=== PATIENT | male | born 1970 | race Caucasian/White ===

== ENCOUNTER → 2017-09-07 07:21 | Outpatient (CLI) | payer MEDICAID, SELFPAY ==
[2017-09-07 10:22] LABS: Hemoglobin A1c 7.4 % (4.2-6.3)
[2017-09-07 10:37] LABS: AST(SGOT) 54 U/L (15-37); Alanine Aminotransfer ALT/SGPT 76 U/L (16-61); Albumin, Serum 3.7 g/dL (3.2-5.0); Alkaline Phosphatase 88 U/L (45-117); Anion Gap 11 (5-15); BUN 18 mg/dL (7-18); BUN/Creat Ratio 24.5 RATIO (10-20); Calcium,Total 8.7 mg/dL (8.5-10.1); Chloride 102 mmol/L (98-107); Cholesterol 106 mg/dL (200); Creatinine, Serum 0.73 mg/dL (0.70-1.30); EST Glomerular Filtration Rate 121 mL/min (>60); Est Glom Filt Rate - Afr Amer 146 mL/min (>60); Globulin 3.7 g/dL (2.2-4.2); Glucose 150 mg/dL (74-106); High Density Lipoprotein 30 mg/dL; Potassium 3.7 mmol/L (3.5-5.1); Protein, Total 7.4 g/dL (6.4-8.2); Sodium Level 138 mmol/L (136-145); Thyroid Stim Hormone (TSH) 2.37 uIU/mL (0.358-3.74); Triglycerides 180 mg/dL; Very Low Density Lipoprotein 36 mg/dL (5-40)
== END ==
PROVIDERS: Family Provider Internal Medicine; PCP Internal Medicine; Visit Provider Nurse Practitioner Family
DX: Z13.29 Encounter for screening for other suspected endocrine disorder (principal); E78.5 Hyperlipidemia, unspecified; I10 Essential (primary) hypertension; E11.9 Type 2 diabetes mellitus without complications
CPT/HCPCS: 36415; 80053; 80061; 83036; 84443

== ENCOUNTER 2017-09-14 09:00 | Outpatient (RCR) | payer MEDICAID, SELFPAY | END 2017-09-15 23:59 | LOC: DC 09:00 | PROVIDERS: Family Provider Internal Medicine; PCP Internal Medicine; Visit Provider Podiatrist | DX: E11.42 Type 2 diabetes mellitus with diabetic polyneuropathy (principal); E66.09 Other obesity due to excess calories; Z68.42 Body mass index [BMI] 45.0-49.9, adult; Z71.3 Dietary counseling and surveillance | CPT/HCPCS: 97803; G0108 ==

== ENCOUNTER 2017-11-14 11:00 | Outpatient (RCR) | payer MEDICAID, SELFPAY | END 2017-11-15 23:59 | LOC: DC 11:00 | PROVIDERS: Family Provider Internal Medicine; PCP Internal Medicine; Visit Provider Podiatrist | DX: E11.42 Type 2 diabetes mellitus with diabetic polyneuropathy (principal); E66.09 Other obesity due to excess calories; Z68.42 Body mass index [BMI] 45.0-49.9, adult; Z71.3 Dietary counseling and surveillance | CPT/HCPCS: 97803; G0108 ==

== ENCOUNTER 2017-12-06 13:09 | Outpatient (RCR) | payer MEDICAID, SELFPAY | END 2017-12-15 23:59 | LOC: DC 13:09 | PROVIDERS: Family Provider Internal Medicine; PCP Internal Medicine; Visit Provider Podiatrist | DX: E11.42 Type 2 diabetes mellitus with diabetic polyneuropathy (principal); E66.09 Other obesity due to excess calories; Z68.42 Body mass index [BMI] 45.0-49.9, adult; Z71.3 Dietary counseling and surveillance | CPT/HCPCS: G0108 ==

== ENCOUNTER 2017-12-27 12:50 | Outpatient (RCR) | payer MEDICAID, SELFPAY | END 2018-01-15 23:59 | LOC: DC 12:50 | PROVIDERS: Family Provider Internal Medicine; PCP Internal Medicine; Visit Provider Podiatrist | DX: E11.42 Type 2 diabetes mellitus with diabetic polyneuropathy (principal); E66.09 Other obesity due to excess calories; Z68.42 Body mass index [BMI] 45.0-49.9, adult; Z71.3 Dietary counseling and surveillance ==

== ENCOUNTER → 2018-01-01 15:06 | Outpatient (CLI) | payer MEDICAID, SELFPAY ==
[2018-01-01 16:44] LABS: Anion Gap 8 (5-15); BUN 16 mg/dL (7-18); BUN/Creat Ratio 21.1 RATIO (10-20); Calcium,Total 9.5 mg/dL (8.5-10.1); Chloride 106 mmol/L (98-107); Creatinine, Serum 0.76 mg/dL (0.70-1.30); EST Glomerular Filtration Rate 116 mL/min (>60); Est Glom Filt Rate - Afr Amer 140 mL/min (>60); Glucose 97 mg/dL (74-106); Sodium Level 142 mmol/L (136-145)
[2018-01-01 16:46] LABS: Hemoglobin A1c 6.6 % (4.2-6.3)
== END ==
PROVIDERS: Family Provider Internal Medicine; PCP Internal Medicine; Visit Provider Nurse Practitioner Family
DX: E11.9 Type 2 diabetes mellitus without complications (principal)
CPT/HCPCS: 36415; 80048; 83036

== ENCOUNTER → 2018-01-02 14:51 | Outpatient (CLI) | payer MEDICAID, SELFPAY ==
[2018-01-02 17:49] LABS: Microalbumin,Random Urine 7.4 mg/L (NO RANGE EST.); Microalbumin:Creatinine Ratio 6.4 mg/g CRE (<30 mg/g CRE)
== END ==
PROVIDERS: Family Provider Internal Medicine; PCP Internal Medicine; Visit Provider Nurse Practitioner Family
DX: E11.9 Type 2 diabetes mellitus without complications (principal)
CPT/HCPCS: 82043; 82570

== ENCOUNTER 2018-02-13 14:00 | Outpatient (RCR) | payer MEDICAID, SELFPAY | END 2018-02-15 23:59 | LOC: DC 14:00 | PROVIDERS: Family Provider Internal Medicine; PCP Internal Medicine; Visit Provider Podiatrist | DX: E11.42 Type 2 diabetes mellitus with diabetic polyneuropathy (principal); E66.09 Other obesity due to excess calories; Z68.42 Body mass index [BMI] 45.0-49.9, adult; Z71.3 Dietary counseling and surveillance | CPT/HCPCS: 97803; G0108 ==

== ENCOUNTER 2018-03-13 10:20 | Outpatient (RCR) | payer MEDICAID, SELFPAY | END 2018-03-17 23:59 | LOC: DC 10:20 | PROVIDERS: Family Provider Internal Medicine; PCP Internal Medicine; Visit Provider Podiatrist | DX: E11.42 Type 2 diabetes mellitus with diabetic polyneuropathy (principal); E66.09 Other obesity due to excess calories; Z68.42 Body mass index [BMI] 45.0-49.9, adult; Z71.3 Dietary counseling and surveillance | CPT/HCPCS: G0108 ==

== ENCOUNTER → 2018-04-03 07:32 | Outpatient (CLI) | payer MEDICAID, SELFPAY ==
[2018-04-03 10:59] LABS: AST(SGOT) 37 U/L (15-37); Alanine Aminotransfer ALT/SGPT 71 U/L (16-61); Albumin, Serum 3.8 g/dL (3.2-5.0); Alkaline Phosphatase 76 U/L (45-117); Anion Gap 8 (5-15); BUN 19 mg/dL (7-18); BUN/Creat Ratio 22.8 RATIO (10-20); Calcium,Total 8.9 mg/dL (8.5-10.1); Chloride 102 mmol/L (98-107); Cholesterol 121 mg/dL (200); Creatinine, Serum 0.83 mg/dL (0.70-1.30); EST Glomerular Filtration Rate 104 mL/min (>60); Est Glom Filt Rate - Afr Amer 126 mL/min (>60); Globulin 3.7 g/dL (2.2-4.2); Glucose 126 mg/dL (74-106); High Density Lipoprotein 33 mg/dL; Protein, Total 7.5 g/dL (6.4-8.2); Sodium Level 136 mmol/L (136-145); Triglycerides 185 mg/dL; Very Low Density Lipoprotein 37 mg/dL (5-40)
[2018-04-03 11:07] LABS: Hemoglobin A1c 6.3 % (4.2-6.3)
== END ==
PROVIDERS: Family Provider Internal Medicine; PCP Internal Medicine; Referring Provider Nurse Practitioner Family; Visit Provider Nurse Practitioner Family
DX: E11.9 Type 2 diabetes mellitus without complications (principal); E78.5 Hyperlipidemia, unspecified
CPT/HCPCS: 36415; 80053; 80061; 83036

== ENCOUNTER 2018-04-10 10:23 | Outpatient (RCR) | payer MEDICAID, SELFPAY | END 2018-04-17 23:59 | LOC: DC 10:23 | PROVIDERS: Family Provider Internal Medicine; PCP Internal Medicine; Referring Provider Podiatrist; Visit Provider Podiatrist | DX: E11.42 Type 2 diabetes mellitus with diabetic polyneuropathy (principal); E66.09 Other obesity due to excess calories; Z68.42 Body mass index [BMI] 45.0-49.9, adult; Z71.3 Dietary counseling and surveillance | CPT/HCPCS: G0108 ==

== ENCOUNTER 2018-05-14 13:48 | Outpatient (RCR) | payer MEDICAID, SELFPAY | END 2018-05-17 23:59 | LOC: DC 13:48 | PROVIDERS: Family Provider Internal Medicine; PCP Internal Medicine; Referring Provider Podiatrist; Visit Provider Podiatrist | DX: E11.42 Type 2 diabetes mellitus with diabetic polyneuropathy (principal); E66.09 Other obesity due to excess calories; Z68.42 Body mass index [BMI] 45.0-49.9, adult; Z71.3 Dietary counseling and surveillance | CPT/HCPCS: G0108 ==

== ENCOUNTER 2018-06-06 12:53 | Outpatient (RCR) | payer MEDICAID, SELFPAY | END 2018-06-17 23:59 | LOC: DC 12:53 | PROVIDERS: Family Provider Internal Medicine; PCP Internal Medicine; Referring Provider Podiatrist; Visit Provider Podiatrist | DX: E11.42 Type 2 diabetes mellitus with diabetic polyneuropathy (principal); E66.09 Other obesity due to excess calories; Z68.42 Body mass index [BMI] 45.0-49.9, adult; Z71.3 Dietary counseling and surveillance | CPT/HCPCS: G0108 ==

== ENCOUNTER → 2018-07-22 12:04 | Outpatient (CLI) | payer MEDICAID, SELFPAY | PROVIDERS: Family Provider Internal Medicine; PCP Internal Medicine; Referring Provider Internal Medicine; Visit Provider Internal Medicine | DX: Z12.11 Encounter for screening for malignant neoplasm of colon (principal) | CPT/HCPCS: 82274 ==

== ENCOUNTER 2018-07-30 13:10 | Outpatient (RCR) | payer MEDICAID, SELFPAY | END 2018-07-30 23:59 | LOC: DC 13:10 | PROVIDERS: Family Provider Internal Medicine; PCP Internal Medicine; Referring Provider Podiatrist; Visit Provider Podiatrist | DX: E11.42 Type 2 diabetes mellitus with diabetic polyneuropathy (principal); E66.09 Other obesity due to excess calories; Z68.42 Body mass index [BMI] 45.0-49.9, adult; Z71.3 Dietary counseling and surveillance | CPT/HCPCS: 97803; G0108 ==

== ENCOUNTER 2018-09-18 13:50 | Outpatient (RCR) | payer MEDICAID, SELFPAY ==
--- NOTE | 2018-09-18 14:46 | HP.PTEVAL_ITS ---
Patient's Visit Information SERENITY MACHADO is a 48 year old M referred to Physical Therapy by CARINE DanielsC with a diagnosis of PARAPLEGIA. Date of Evaluation: 09/18/18 Physical Therapist: Joseph Ramirez, PT, Cert MDT, [facility] - Visit Plan Frequency: 1 VISIT Plan: PT EVAL ONLY. RECOMMEND BIATRIC HEAVY DUTY SHOWER CHAIR [address] IN WALK IN SHOWER WHICH PATIENT ROLLS IN WITH W/C IN ORDER TO DO A SLIDING BOARD TRANSFER TO [facility] INDEPENDANCE - Subjective Findings: This 48 y/o male presents to physical therapy with paraplegia. Patient referred for DME . Patient needs Heavy Duty Biatric -600 Samuel shower chair. Patient shower with patient able to push self with w/c in order to use sliding board. Patient is w/c only able to do sliding board tranfer Independant. Patient needs assist with dressing ,bathing,cleaning. Patient can assist with cooking. Patient has some pain hips. Patient c/o parathesia with absent touch,unable to feel heat ,cold ,deep pressure,pin prick. Patient self caths . DME hospital bed,trapezius,hospital bed . SOCAIL: lives with mother. VOACTION: disablity - Pain Left Hip Pain Intensity (Out of 10): 3 Pain Intensity Range: 10 - Objective POSTURE: posterior pelvic tilt. PROM: WFL all planes. NEURO: absent touch,deep pressure,and pin prick HIPS-FEET. MMT: 0/5 BLE,BUE 5/5. SITTING: balance fair. MOBILITY: Independant w/c level. TRANSFERS: sliding board transfer Mod Independant - Goals Goal 1:: Recommend SAMUEL -600 shower chiar to maintain patients Independance Goal Time Frame: 1 visit - Rehabilitation Potential Physical Therapy Diagnosis: Patient is a paaplegia and will benifit from SAMUEL-600 shower cahir to maintain independance and safety due to patient uses sliding board for all transfers. Rehabilitation Potential: Fair - Anticipated Interventions Patient/Client Instruction: Educate patient on: Plan of Care For the Purpose of:: Other Other: [facility] Thank you for the opportunity to evaluate your patient. For Medicare and Medicare HMO plans, please review the plan of care and approve it. It will need to be FAXED BACK to us at [phone] for Medicare purposes. For Medicare only, by signing this I certify the plan of care. Please let me know if there are questions or concerns regarding this plan of care. Physician Signature: Date:
--- NOTE | 2019-05-22 11:01 | HP.PTREVAL ---
Kevan Alarcon, MARINE ENGINE MACHINIST-C, It has been my pleasure to treat SERENITY MACHADO over the last 1 visits for PARAPLEGIA. Please see the progress note below for an update on the physical therapy plan of care! Plan Plan: PT EVAL ONLY. RECOMMEND BIATRIC HEAVY DUTY SHOWER CHAIR [address] IN WALK IN SHOWER WHICH PATIENT ROLLS IN WITH W/C IN ORDER TO DO A SLIDING BOARD TRANSFER TO [facility] PATIENTS INDEPENDANCE Goals Goal 1:: Recommend GENOVEVA -600 shower chiar to maintain patients Independance Goal Time Frame: 1 visit Anticipated Interventions Patient/Client Instruction: Educate patient on: Plan of Care For the Purpose of:: Other Other: DME SHOWER CHAIR Please do not hesitate to contact me at [phone] by phone or if you have questions or concerns regarding this new plan of care! Sincerely, Joseph Ramirez, PT, Cert MDT, OCS
--- NOTE | 2019-05-22 11:07 | HP.PTREVAL ---
Kevan Alarcon, GRADE SCHOOL TEACHER-C, It has been my pleasure to treat SERENITY MACHADO over the last 1 visits for PARAPLEGIA. Please see the progress note below for an update on the physical therapy plan of care! Plan Plan: ADDEDEMUM TO EVALUATION. RECOMMEND RECOMMEND GENOVEVA SHOWER COMMODE CHAIR 600 WITH ACCESSORIES MULTIPLE POSTION BACKWITH ADJUSTABLE ANGLE,24 HEAVY DUTY REAR WHEELS WITH COMPOSIT,CUSTOM SEAT WIDTH 20,ADJUSTABLE FOOTREST 16-20 PAIR,PELVIC POSTIONING STRAP 22 IN WIDTH. Goals Goal 1:: Recommend GENOVEVA -600 shower chiar to maintain patients Independance Goal Time Frame: 1 visit Anticipated Interventions Patient/Client Instruction: Educate patient on: Plan of Care For the Purpose of:: Other Other: DME SHOWER CHAIR Please do not hesitate to contact me at [phone] by phone or if you have questions or concerns regarding this new plan of care! Sincerely, Joseph Ramirez, PT, Cert MDT, OCS
== END 2018-09-18 19:00 | disposition home or self-care (01) ==
LOC: PT 13:50
PROVIDERS: Family Provider Internal Medicine; PCP Internal Medicine; Referring Provider Nurse Practitioner Family; Visit Provider Nurse Practitioner Family
DX: G82.20 Paraplegia, unspecified (principal)
CPT/HCPCS: 97163

== ENCOUNTER → 2019-01-30 09:06 | Outpatient (CLI) | payer MEDICAID, SELFPAY ==
[2019-01-24 13:34] VITALS: BMI 46.6
--- NOTE | 2019-01-30 09:07 | US_ITS ---
STUDY: ABDOMINAL ULTRASOUND - RIGHT UPPER QUADRANT REASON FOR VISIT: Male, 48 years old. Elevated LFTs. TECHNIQUE: Ultrasound evaluation of the right upper quadrant was performed with real-time and static carlos-scale imaging. TECHNICAL QUALITY: Examination limited due to obesity. COMPARISON: None. FINDINGS: Liver: The liver measures 18.4 cm. There is increased echogenicity consistent with fatty infiltration. The bile ducts are within normal limits. There is hepatic color flow. The direction of portal flow is hepatopetal. There is no demonstrated mass lesion. Gallbladder: Normal distended gallbladder. The gallbladder wall measures 2.3 mm. There is a negative sonographic Parrish's sign. There is no pericholecystic fluid. There is biliary sludge dependent within the gallbladder. Common Bile Duct (C.B.D.): The common bile duct measures 4.5 mm. Pancreas: Normal size of the head, body and tail of the pancreas. There is increased echogenicity of the pancreas. There is no demonstrated pancreatic mass or cyst. Right Kidney: Normal size of the right kidney. The right kidney measures 13.9 cm. Normal renal cortex. The right cortex measures 1.5 cm. There is no demonstrated renal mass or cyst. There is no right hydronephrosis. US/Liver IMPRESSION: 1. Enlarged echogenic liver is difficult to penetrate. There is no obvious mass. 2. Gallbladder sludge without other evidence for acute cholecystitis. 3. Otherwise normal right upper quadrant ultrasound. Electronically Signed: Edmundo Garces DO at 17:12 EDT Tel [phone], Service support ,
== END ==
PROVIDERS: Family Provider Internal Medicine; PCP Internal Medicine; Referring Provider Nurse Practitioner Family; Visit Provider Nurse Practitioner Family
DX: R94.5 Abnormal results of liver function studies (principal)
CPT/HCPCS: 76705

== ENCOUNTER → 2019-03-31 12:12 | Outpatient (CLI) | payer MEDICAID, SELFPAY ==
[2019-01-24 13:34] VITALS: BMI 46.6
[2019-03-31 13:15] LABS: Hemoglobin A1c 8.2 % (4.2-6.3)
[2019-03-31 13:27] LABS: ALB/GLOB Ratio 1.1 RATIO (0.9-2.4); AST(SGOT) 77 U/L (15-37); Alanine Aminotransfer ALT/SGPT 105 U/L (16-61); Albumin, Serum 3.7 g/dL (3.2-5.0); Alkaline Phosphatase 89 U/L (45-117); Anion Gap 9 (5-15); BUN 16 mg/dL (7-18); BUN/Creat Ratio 18.5 RATIO (10-20); Calcium,Total 8.8 mg/dL (8.5-10.1); Chloride 104 mmol/L (98-107); Creatinine, Serum 0.86 mg/dL (0.70-1.30); EST Glomerular Filtration Rate 99 mL/min (>60); Est Glom Filt Rate - Afr Amer 120 mL/min (>60); Globulin 3.5 g/dL (2.2-4.2); Glucose 255 mg/dL (74-106); Protein, Total 7.2 g/dL (6.4-8.2); Sodium Level 139 mmol/L (136-145)
[2019-04-02 09:07] LABS: HEPATITIS B SURFACE AG Negative (Negative); Hepatitis A AB, Total Negative (Negative); Hepatitis A IgM Antibody Negative (Negative); Hepatitis B Core AB IgM Negative (Negative); Hepatitis B Core Ab Total Negative (Negative); Hepatitis C Ab <0.1 s/co ratio (0.0-0.9)
[2019-04-02 13:51] LABS: Hep B Surface Antibodies Non Reactive (.)
== END ==
PROVIDERS: Family Provider Internal Medicine; PCP Internal Medicine; Visit Provider Nurse Practitioner Family
DX: R94.5 Abnormal results of liver function studies (principal); E11.9 Type 2 diabetes mellitus without complications
CPT/HCPCS: 36415; 80053; 83036; 86704; 86705; 86706; 86708; 86709; 86803; 87340

== ENCOUNTER 2019-10-15 14:30 | Outpatient (RCR) | payer MEDICAID, SELFPAY ==
[2019-08-26 16:49] VITALS: BMI 46.6
[2019-09-17 13:20] VITALS: BP 134/64; PULSE 92; RESP 20; TEMP 36.9; BMI 50.8
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
[2019-09-24 13:40] VITALS: BP 153/76; PULSE 95; RESP 18; TEMP 37.2; BMI 50.8
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
[2019-10-01 15:17] VITALS: BP 129/78; PULSE 100; RESP 18; TEMP 37.2; BMI 50.8
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
[2019-10-08 14:09] VITALS: BP 128/67; PULSE 104; RESP 20; TEMP 36.3; BMI 50.8
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
[2019-10-15 14:37] VITALS: BP 123/75; PULSE 101; RESP 20; TEMP 36.7; BMI 50.8
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
== END 2019-10-16 23:59 ==
LOC: WC 14:30
PROVIDERS: PCP Internal Medicine; Visit Provider Podiatrist
DX: E11.621 Type 2 diabetes mellitus with foot ulcer (principal); E11.42 Type 2 diabetes mellitus with diabetic polyneuropathy; L97.512 Non-pressure chronic ulcer of other part of right foot with fat layer exposed; G82.20 Paraplegia, unspecified; Z99.3 Dependence on wheelchair; R60.0 Localized edema
CPT/HCPCS: 11042; 15275; 99213; Q4186; G0463

== ENCOUNTER 2019-11-12 15:00 | Outpatient (RCR) | payer MEDICAID, SELFPAY ==
[2019-10-17 00:20] VITALS: BP 123/75; PULSE 101; RESP 20; TEMP 36.7
[2019-10-21 13:20] VITALS: BMI 50.8
[2019-10-22 14:39] VITALS: BP 137/60; PULSE 94; RESP 20; TEMP 36.6; BMI 50.8
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
[2019-10-29 14:51] VITALS: BP 139/82; PULSE 92; RESP 18; TEMP 35.4; BMI 50.8
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
[2019-11-05 15:09] VITALS: BP 139/81; PULSE 96; RESP 16; TEMP 36.2; BMI 50.8
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
[2019-11-12 15:16] VITALS: BP 139/87; PULSE 95; RESP 18; TEMP 36.2; BMI 50.8
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
== END 2019-11-16 23:59 ==
LOC: WC 15:00
PROVIDERS: PCP Internal Medicine; Visit Provider Podiatrist
DX: E11.621 Type 2 diabetes mellitus with foot ulcer (principal); L97.512 Non-pressure chronic ulcer of other part of right foot with fat layer exposed; E11.42 Type 2 diabetes mellitus with diabetic polyneuropathy; G82.20 Paraplegia, unspecified; Z99.3 Dependence on wheelchair
CPT/HCPCS: 11042; 15275; Q4186

== ENCOUNTER 2019-12-03 14:30 | Outpatient (RCR) | payer MEDICAID, SELFPAY ==
[2019-11-17 00:29] VITALS: BP 139/87; PULSE 95; RESP 18; TEMP 36.2
[2019-11-19 15:07] VITALS: BP 141/71; PULSE 103; RESP 16; TEMP 36.4; BMI 50.8
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
[2019-11-26 14:37] VITALS: RESP 18; TEMP 36.3; BMI 50.8
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
[2019-12-03 14:46] VITALS: BP 131/72; PULSE 90; RESP 20; TEMP 36.3; BMI 50.8
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
== END 2019-12-16 23:59 ==
LOC: WC 14:30
PROVIDERS: PCP Internal Medicine; Visit Provider Podiatrist
DX: E11.621 Type 2 diabetes mellitus with foot ulcer (principal); L97.512 Non-pressure chronic ulcer of other part of right foot with fat layer exposed; E11.42 Type 2 diabetes mellitus with diabetic polyneuropathy; Z99.3 Dependence on wheelchair; G82.20 Paraplegia, unspecified; S90.821A Blister (nonthermal), right foot, initial encounter; Z79.4 Long term (current) use of insulin; R60.0 Localized edema
CPT/HCPCS: 99212; 99213; G0463

== ENCOUNTER → 2019-12-18 10:17 | Outpatient (CLI) | payer MEDICAID, SELFPAY ==
[2019-12-05 10:00] VITALS: BMI 50.8
--- NOTE | 2019-12-18 10:30 | RAD_ITS ---
STUDY: X-RAY - ORBITS REASON FOR EXAM: Male, 49 years old. MRI CLEARANCE TECHNIQUE: 2 view(s) of the orbits were obtained. COMPARISON: None. FINDINGS: Normal bilateral orbits without a metallic orbital foreign body. Normal visualized facial bones. Normal paranasal sinuses. The soft tissue structures are unremarkable. RAD/Orbits for Foreign Body IMPRESSION: No demonstrated metallic orbital foreign body. The patient is cleared for an MRI examination. Electronically Signed: Andre Irving, at 11:06 EDT , Service support ,
== END ==
PROVIDERS: PCP Internal Medicine; Referring Provider Internal Medicine; Visit Provider Internal Medicine
DX: Z04.89 Encounter for examination and observation for other specified reasons (principal)
CPT/HCPCS: 70030

== ENCOUNTER → 2020-02-19 11:10 | Outpatient (CLI) | payer MEDICAID, SELFPAY ==
[2020-02-19 10:21] VITALS: BMI 50.8
[2020-02-19 11:18] LABS: Lyme Ab Screen Interpretation REF LAB
[2020-02-19 12:13] LABS: Vitamin B12 876 pg/mL (211-911)
[2020-02-19 12:49] LABS: BUN 15 mg/dL (7-18); Creatinine, Serum 0.82 mg/dL (0.70-1.30); EST Glomerular Filtration Rate 105 mL/min (>60); Est Glom Filt Rate - Afr Amer 127 mL/min (>60); Thyroid Stim Hormone (TSH) 3.07 uIU/mL (0.358-3.74)
[2020-02-20 18:07] LABS: Lyme Scn Total Ab w/Rflx <0.91 ISR (0.00-0.90)
== END ==
PROVIDERS: PCP Internal Medicine; Visit Provider Nurse Practitioner Family
DX: E11.42 Type 2 diabetes mellitus with diabetic polyneuropathy (principal); I10 Essential (primary) hypertension
CPT/HCPCS: 36415; 82565; 82607; 82746; 84443; 84520; 86618

== ENCOUNTER → 2020-03-04 13:23 | Outpatient (CLI) | payer MEDICAID, SELFPAY ==
[2020-02-19 10:21] VITALS: BMI 50.8
--- NOTE | 2020-03-04 13:24 | CT_ITS ---
STUDY: CTA OF THE BRAIN REASON FOR EXAM: Male, 49 years old. FAMILY HX CEREBRAL ANEURYSM, BELLS PALSY RADIATION DOSAGE (If Supplied By Facility): CTDIvol = ( 47.64 ) mGy, DLP = ( 2095.47 ) mGycm TECHNIQUE: CT angiography was performed with a multi-detector CT scanner. Data acquisition was obtained from the skull base through the vertex following intravenous administration of IV 100mL Isovue-370. MIP images were reconstructed from the axial data set. Post-processing of the angiographic images was performed, with multiplanar reformation and 3D reconstruction. Individualized dose optimization techniques were used for this CT. COMPARISON: None. FINDINGS: Normal bilateral petrous carotid arteries. Normal right cavernous carotid artery with a normal supraclinoid bifurcation. Normal left cavernous carotid artery with a normal supraclinoid bifurcation. Normal right A1 segments of the anterior cerebral artery. Normal left A1 segments of the anterior cerebral artery. Normal intact anterior communicating artery (ACOM). Normal bilateral A2 segments of the anterior cerebral arteries. Normal right M1 and M2 segments of the middle cerebral arteries, with a normal M1 bifurcation. Normal left M1 and M2 segments of the middle cerebral arteries, with a normal M1 bifurcation. Normal right posterior communicating artery (PCOM). Normal left posterior communicating artery (PCOM). Normal bilateral vertebral arteries. Normal basilar artery with a normal basilar bifurcation. The visualized bilateral superior cerebellar (SCA) arteries are normal. Normal bilateral P1, P2 and visualized P3 segments of the posterior cerebral arteries. There is no demonstrated aneurysm of the [place]. There is no demonstrated abnormality of the visualized brain. CT/CTA Head W/WO Contrast IMPRESSION: Normal [place] without a demonstrated aneurysm or hemodynamically significant stenosis. Electronically Signed: Andre Irving, at 14:50 EDT , Service support ,
== END ==
PROVIDERS: PCP Internal Medicine; Referring Provider Nurse Practitioner Family; Visit Provider Nurse Practitioner Family
DX: G51.0 Bell's palsy (principal); Z82.49 Family history of ischemic heart disease and other diseases of the circulatory system
CPT/HCPCS: 70496; Q9967; A4216

== ENCOUNTER → 2020-03-08 14:05 | Outpatient (CLI) | payer MEDICAID, SELFPAY ==
[2020-02-19 10:21] VITALS: BMI 50.8
--- NOTE | 2020-03-08 14:09 | US_ITS ---
STUDY: RENAL ULTRASOUND - COMPLETE REASON FOR EXAM: Male, 49 years old. HX OF PARAPLEGIA -- PATIENT IS OBESE -- CHECK KIDNEYS FOR HYDRONEPHROSIS, STONES, CKD TECHNIQUE: Ultrasound evaluation of the kidneys was performed with real-time and static knight-scale imaging. COMPARISON: None. FINDINGS: RIGHT KIDNEY: Normal location of the right kidney, which is normal in size. The right kidney measures 12.7 x 5.6 x 7.7 cm. There is a normal cortex of the right kidney. The renal cortex measures 2.8 cm. There is no right renal mass or cyst. There are no right renal calculi. There is no right hydronephrosis. DISTAL RIGHT URETER: There is non-visualization of the distal right ureter. There is no demonstrated right ureterovesical junction calculus. There is no demonstrated right ureteral jet. LEFT KIDNEY: Normal location of the left kidney, which is normal in size. The left kidney measures 12.6 x 4.9 x 7.2 cm. There is a normal cortex of the left kidney. The renal cortex measures 2.4 cm. There is no left renal mass or cyst. There are no left renal calculi. There is no left hydronephrosis. DISTAL LEFT URETER: There is non-visualization of the distal left ureter. There is no demonstrated left ureterovesical junction calculus. There is a visualized left ureteral jet. AORTA: Not visualized. I.V.C.: The IVC is obscured. BLADDER: The distended urinary bladder has a volume of 502.3 ml. Patient did not void for the examination. Bladder wall measures 4 mm. Some mild heterogeneous likely debris within the urinary bladder. There are no demonstrated bladder calculi. US/Kidney and Bladder IMPRESSION: No hydronephrosis identified. The bladder is distended. The patient could not void for the examination. Bladder wall for the degree of distention is mildly prominent. There is also some debris within the urinary bladder. Correlate with urinalysis to exclude cystitis. Incidental note increased echotexture to the visualized aspects of the liver can be seen with hepatocellular disease such as hepatic steatosis. Electronically Signed: Black Krause, at 6:31 EDT Tel , Service support ,
== END ==
PROVIDERS: PCP Internal Medicine
DX: N31.9 Neuromuscular dysfunction of bladder, unspecified (principal)
CPT/HCPCS: 76770

== ENCOUNTER → 2020-03-18 10:40 | Outpatient (CLI) | payer MEDICAID, SELFPAY ==
[2020-02-19 10:21] VITALS: BMI 50.8
[2020-03-15 15:32] VITALS: BMI 50.8
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
== END ==
PROVIDERS: PCP Internal Medicine; Referring Provider Internal Medicine Endocrinology, Diabetes & Metabolism; Visit Provider Internal Medicine Endocrinology, Diabetes & Metabolism
DX: M85.80 Other specified disorders of bone density and structure, unspecified site (principal)
CPT/HCPCS: 77081

== ENCOUNTER → 2020-03-30 14:42 | Outpatient (CLI) | payer MEDICAID, SELFPAY ==
[2020-03-30 13:54] VITALS: BMI 52.1
[2020-03-30 15:44] LABS: Absolute Lymphocyte Count 1.52 X10^3/uL (0.83-4.51); Absolute Neutrophil Count 2.7 X10^3/uL (2.0-7.7); Basophil# 0.05 X10^3/uL; Eosinophil# 0.27 X10^3/uL; Eosinophils% 5.3 % (0-5); Hematocrit 43.9 % (40-54); Hemoglobin 14.6 g/dL (13.0-16.5); Lymphocyte # 1.52 X10^3/ul (4.0); Lymphocyte % 29.6 % (19-41); Mean Corp Hgb Conc 33.3 g/dL (32-36); Mean Corpuscular Hgb 30.5 pg (27.0-32.0); Mean Corpuscular Volume 91.6 fL (80-94); Mean Platelet Vol. 10.6 fl (6.2-12.0); Monocyte# 0.48 X10^3/uL; Monocyte% 9.3 % (0-10); NRBC Flagged by Analyzer 0 % (0-5); Neutrophil # 2.74 X10^3/uL (2.7-7.7); Neutrophil % 53.2 % (47-70); Platelet Count 205 K/mm3 (150-450); RBC Distribution Width CV 12.4 % (11.6-14.6); RBC Distribution Width SD 41.9 fl (35.1-43.9); Red Blood Count 4.79 M/mm3 (4.6-6.2); White Blood Count 5.1 K/mm3 (4.4-11.0)
[2020-03-30 16:25] LABS: Cholesterol 159 mg/dL (200); High Density Lipoprotein 41 mg/dL; Triglycerides 172 mg/dL; Very Low Density Lipoprotein 34 mg/dL (5-40); Vitamin D,25 Hydroxy 57.4 ng/mL
== END ==
PROVIDERS: PCP Internal Medicine; Referring Provider Internal Medicine; Visit Provider Internal Medicine
DX: M81.0 Age-related osteoporosis without current pathological fracture (principal); E78.5 Hyperlipidemia, unspecified; I10 Essential (primary) hypertension; E11.9 Type 2 diabetes mellitus without complications
CPT/HCPCS: 36415; 80061; 82306; 85025

== ENCOUNTER → 2020-03-31 | Outpatient (CLI) | payer MEDICAID, SELFPAY ==
[2020-03-30 13:54] VITALS: BMI 52.1
[2020-03-31 12:44] LABS: Microalbumin,Random Urine 20.8 mg/L (NO RANGE EST.); Microalbumin:Creatinine Ratio 14.9 mg/g CRE (<30 mg/g CRE)
== END | disposition home or self-care (01) ==
LOC: LABSPEC 10:19
PROVIDERS: PCP Internal Medicine; Referring Provider Internal Medicine; Visit Provider Internal Medicine
DX: I10 Essential (primary) hypertension (principal); E11.9 Type 2 diabetes mellitus without complications
CPT/HCPCS: 82043; 82570

== ENCOUNTER → 2020-07-29 13:58 | Outpatient (CLI) | payer MEDICAID, SELFPAY ==
[2020-06-15 14:34] VITALS: BMI 57.7
[2020-07-29 15:21] LABS: Anion Gap 5 (5-15); BUN 18 mg/dL (7-18); BUN/Creat Ratio 20.4 RATIO (10-20); Calcium,Total 9.3 mg/dL (8.5-10.1); Chloride 102 mmol/L (98-107); Creatinine, Serum 0.88 mg/dL (0.70-1.30); EST Glomerular Filtration Rate 96 mL/min (>60); Est Glom Filt Rate - Afr Amer 116 mL/min (>60); Glucose 224 mg/dL (74-106); Potassium 4.1 mmol/L (3.5-5.1); Sodium Level 135 mmol/L (136-145)
== END ==
PROVIDERS: PCP Internal Medicine; Referring Provider Internal Medicine; Visit Provider Internal Medicine
DX: I10 Essential (primary) hypertension (principal); E11.9 Type 2 diabetes mellitus without complications
CPT/HCPCS: 36415; 80048

== ENCOUNTER → 2021-01-24 15:00 | Outpatient (CLI) | payer MEDICAID, SELFPAY ==
[2021-01-24 14:09] VITALS: BMI 50.8
--- NOTE | 2021-01-24 15:02 | RAD_ITS ---
STUDY: X-RAY - LEFT SHOULDER REASON FOR EXAM: Left shoulder pain for 3 months. TECHNIQUE: 4 view(s) of the shoulder. COMPARISON: None. FINDINGS: Normal glenohumeral articulation. There is mild acromioclavicular arthrosis. Normal acromion. Normal humeral head and visualized proximal humerus. The soft tissue structures are unremarkable. Normal visualized pulmonary apex. RAD/Shoulder min 2 Views IMPRESSION: Mild acromioclavicular arthrosis. Electronically Signed: Tyrell Cardozo MD at 13:50 EDT Tel , Service support ,
== END ==
PROVIDERS: PCP Internal Medicine; Referring Provider Internal Medicine; Visit Provider Internal Medicine
DX: M19.012 Primary osteoarthritis, left shoulder (principal)
CPT/HCPCS: 73030

== ENCOUNTER 2021-03-31 16:49 | Outpatient (RCR) | payer MEDICAID, SELFPAY | END 2021-04-17 23:59 | LOC: DC 16:49 | PROVIDERS: PCP Internal Medicine; Visit Provider Nurse Practitioner Family | DX: E11.9 Type 2 diabetes mellitus without complications (principal) | CPT/HCPCS: 97802 ==

== ENCOUNTER → 2021-05-02 13:40 | Outpatient (CLI) | payer MEDICAID, SELFPAY ==
--- NOTE | 2021-05-02 13:42 | US_ITS ---
STUDY: RENAL ULTRASOUND - COMPLETE REASON FOR EXAM: Male, 50 years old. NEUROGENIC BLADDER TECHNIQUE: Ultrasound evaluation of the kidneys was performed with real-time and static knight-scale imaging. COMPARISON: 03.08.20 us. FINDINGS: RIGHT KIDNEY: Normal location of the right kidney, which is normal in size. The right kidney measures 13.6 x 5.7 cm. There is a normal cortex of the right kidney. The renal cortex measures 1.3 cm. There is no right renal mass or cyst. There are no right renal calculi. There is no right hydronephrosis. DISTAL RIGHT URETER: There is non-visualization of the distal right ureter. There is no demonstrated right ureterovesical junction calculus. There is no demonstrated right ureteral jet. LEFT KIDNEY: Normal location of the left kidney, which is normal in size. The left kidney measures 11.7 x 5.9 cm. There is a normal cortex of the left kidney. The renal cortex measures 1.4 cm. There is no left renal mass or cyst. There are no left renal calculi. There is no left hydronephrosis. DISTAL LEFT URETER: There is non-visualization of the distal left ureter. There is no demonstrated left ureterovesical junction calculus. There is no demonstrated left ureteral jet. AORTA: There is obscuration of the abdominal aorta by overlying bowel gas I.V.C.: The IVC is obscured. BLADDER: The distended urinary bladder has a volume of 280 ml. There is a normal wall thickness of the distended urinary bladder. There is no demonstrated mass within the urinary bladder. There are no demonstrated bladder calculi. US/Kidney and Bladder IMPRESSION: Normal ultrasound of the kidneys and urinary bladder. Electronically Signed: Phu Patel MD at 17:27 EST , Service support ,
== END ==
PROVIDERS: PCP Internal Medicine
DX: N31.9 Neuromuscular dysfunction of bladder, unspecified (principal); R33.9 Retention of urine, unspecified; G82.20 Paraplegia, unspecified
CPT/HCPCS: 76770

== ENCOUNTER 2021-05-16 13:00 | Outpatient (RCR) | payer MEDICAID, SELFPAY | END 2021-05-17 23:59 | LOC: DC 13:00 | PROVIDERS: PCP Internal Medicine; Visit Provider Nurse Practitioner Family | DX: E11.9 Type 2 diabetes mellitus without complications (principal) | CPT/HCPCS: 97803; G0270 ==

== ENCOUNTER → 2021-06-13 14:21 | Outpatient (CLI) | payer MEDICAID, SELFPAY ==
[2021-06-13 15:29] LABS: ALB/GLOB Ratio 0.9 RATIO (0.9-2.4); AST(SGOT) 56 U/L (15-37); Alanine Aminotransfer ALT/SGPT 77 U/L (16-61); Albumin, Serum 3.4 g/dL (3.2-5.0); Alkaline Phosphatase 90 U/L (45-117); Anion Gap 9 (5-15); BUN 15 mg/dL (7-18); Calcium,Total 9.6 mg/dL (8.5-10.1); Chloride 96 mmol/L (98-107); Creatinine, Serum 0.88 mg/dL (0.70-1.30); EST Glomerular Filtration Rate 96 mL/min (>60); Est Glom Filt Rate - Afr Amer 116 mL/min (>60); Globulin 3.7 g/dL (2.2-4.2); Glucose 218 mg/dL (74-106); Protein, Total 7.1 g/dL (6.4-8.2); Sodium Level 134 mmol/L (136-145)
[2021-06-13 15:33] LABS: BNP,B-Type NATRIURETIC PEPTIDE 6.4 pg/mL (0-100)
[2021-06-13 15:38] LABS: Absolute Lymphocyte Count 1.59 X10^3/uL (0.83-4.51); Absolute Neutrophil Count 4.7 X10^3/uL (2.0-7.7); Basophil# 0.06 X10^3/uL; Basophil% 0.8 % (0-1); Eosinophils% 2.8 % (0-5); Hematocrit 43.2 % (40-54); Lymphocyte # 1.59 X10^3/ul (0.83-4.51); Lymphocyte % 22.1 % (19-41); Mean Corp Hgb Conc 34.7 g/dL (32-36); Mean Corpuscular Hgb 31.9 pg (27.0-32.0); Mean Corpuscular Volume 91.9 fL (80-94); Mean Platelet Vol. 10.8 fl (6.2-12.0); Monocyte# 0.65 X10^3/uL; NRBC Flagged by Analyzer 0 % (0-5); Neutrophil # 4.66 X10^3/uL (2.7-7.7); Neutrophil % 64.6 % (47-70); Platelet Count 238 K/mm3 (150-450); RBC Distribution Width CV 12.5 % (11.6-14.6); White Blood Count 7.2 K/mm3 (4.4-11.0)
== END ==
PROVIDERS: PCP Internal Medicine; Referring Provider Physician Assistant; Visit Provider Physician Assistant
DX: E11.9 Type 2 diabetes mellitus without complications (principal); I10 Essential (primary) hypertension; G47.10 Hypersomnia, unspecified; R06.02 Shortness of breath
CPT/HCPCS: 36415; 80053; 83880; 85025

== ENCOUNTER 2021-06-14 14:02 | Outpatient (RCR) | payer MEDICAID, SELFPAY | END 2021-06-17 23:59 | LOC: DC 14:02 | PROVIDERS: PCP Internal Medicine; Visit Provider Nurse Practitioner Family | DX: E11.9 Type 2 diabetes mellitus without complications (principal) | CPT/HCPCS: 97803 ==

== ENCOUNTER 2021-07-06 22:57 | Outpatient (CLI) | payer MEDICAID, SELFPAY | END 2021-07-06 23:59 | disposition short-term general hospital (02) | LOC: SL 22:57 | PROVIDERS: PCP Internal Medicine; Visit Provider Physician Assistant | DX: G47.10 Hypersomnia, unspecified (principal) | CPT/HCPCS: 95811 ==

== ENCOUNTER 2021-07-29 12:00 | Outpatient (CLI) | payer MEDICAID, SELFPAY | END 2021-07-29 23:59 | disposition home or self-care (01) | LOC: SL 12:18 | PROVIDERS: PCP Internal Medicine; Visit Provider Physician Assistant | DX: G47.10 Hypersomnia, unspecified (principal) ==

== ENCOUNTER 2021-08-01 14:16 | Outpatient (RCR) | payer MEDICAID, SELFPAY | END 2021-08-15 23:59 | LOC: DC 14:16 | PROVIDERS: PCP Internal Medicine; Visit Provider Nurse Practitioner Family | DX: E11.9 Type 2 diabetes mellitus without complications (principal) | CPT/HCPCS: 97803 ==

== ENCOUNTER 2021-08-04 13:47 | Outpatient (CLI) | payer MEDICAID, SELFPAY ==
--- NOTE | 2021-08-04 13:51 | ECHOCS_ITS ---
Reason For Study: SOB, BLE EDEMA Procedure This was a 2D Doppler, Color Flow transthoracic echocardiogram. The study was technically difficult. The study was technically limited. Exam performed in department. Left Ventricle The estimated ejection fraction is 60 %. Normal diastology for age. No regional wall motion abnormalities noted. Right Ventricle Normal RV size. Normal systolic function. Atria Normal left atrium. Normal right atrium. No doppler evidence for ASD. Mitral Valve There is no mitral valve stenosis. No mitral valve insufficiency. Tricuspid Valve There is no tricuspid stenosis. Trivial tricuspid valve insufficiency. Unable to estimate RV systolic pressure due to insufficient tricuspid regurgitant envelope. Aortic Valve The aortic valve is not well visualized. There is no aortic stenosis. No aortic valve insufficiency. Pulmonic Valve There is no pulmonic valvular stenosis. No pulmonic valve insufficiency. Great Vessels Normal aortic root. Pericardium/Pleural No pericardial effusion. Medication 22 gauge I.V. with prn adaptor inserted into left arm. Diluted definity 2ml given slow IV push to enhance endocardial definition. MMode/2D Measurements & Calculations LVIDd: 4.2 cm IVSd: 1.2 cm Ao root diam: 3.2 cm LVIDs: 2.9 cm LVPWd: 1.2 cm RVDd: 4.2 cm FS: 30.5 % LAV(MOD-bp): 47.4 ml LVAd ap4: 45.5 cm2 SV(MOD-sp4): 117.1 ml LAV(MOD-bp) Indexed: 15.8 ml/m2 LVLd ap4: 9.4 cm LAV(MOD-sp2): 44.2 ml EDV(MOD-sp4): 183.7 ml LAV(MOD-sp4): 44.0 ml EDV(sp4-el): 187.0 ml LVAs ap4: 24.5 cm2 LVLs ap4: 7.4 cm ESV(MOD-sp4): 66.6 ml ESV(sp4-el): 68.7 ml EF(MOD-sp4): 63.8 % EF(sp4-el): 63.3 % SV(sp4-el): 118.3 ml LA A4 area: 17.3 cm2 LA dimension(2D): 4.0 cm Time Measurements MV dec time: 0.21 sec Doppler Measurements & Calculations MV E max gio: 80.5 cm/sec Lat Peak E' Gio: 14.7 cm/sec Med Peak E' Gio: 11.6 cm/sec MV A max gio: 74.2 cm/sec E/E' lat: 5.5 E/E' med: 6.9 MV E/A: 1.1 Ao V2 max: 132.3 cm/sec LV V1 max: 123.0 cm/sec PA V2 max: 160.8 cm/sec Ao max P.0 mmHg LV V1 max P.1 mmHg ECHO/Echo Complete W/ Contrast Interpretation Summary The estimated ejection fraction is 60 %. Normal diastology for age. Ordering Physician: Kaci Gaines Referring Physician: DOMINICK BRADFORD Performed By: Lela Martinez, RENETTA
== END 2021-08-04 23:59 | disposition home or self-care (01) ==
PROVIDERS: PCP Internal Medicine; Referring Provider Physician Assistant; Visit Provider Physician Assistant
DX: R06.02 Shortness of breath (principal); R60.0 Localized edema
CPT/HCPCS: 93306; Q9957; A4216; C8929

== ENCOUNTER 2021-08-18 10:18 | Outpatient (RCR) | payer MEDICAID, SELFPAY ==
[2021-08-18 12:03] VITALS: BP 146/59; PULSE 109; RESP 16; TEMP 36.5
== END 2021-09-15 23:59 | disposition home or self-care (01) ==
LOC: WC 10:18
PROVIDERS: PCP Internal Medicine; Visit Provider Internal Medicine
DX: Z09 Encounter for follow-up examination after completed treatment for conditions other than malignant neoplasm (principal)

== ENCOUNTER 2021-08-18 12:20 | Inpatient (IN) | payer MEDICAID, SELFPAY ==
[2021-08-18] VITALS (8 sets, daily range): BP systolic 105–155; BP diastolic 47–122; PULSE 95–106; RESP 16–22; TEMP 36.9–37.4; O2SAT 92–97; BMI 71.1; BMI 63.7
--- NOTE | 2021-08-18 12:49 | EKG12_ITS ---
Test Reason : WOUND Blood Pressure : / mmHG Vent. Rate : 095 BPM Atrial Rate : 095 BPM P-R Int : 178 ms QRS Dur : 090 ms QT Int : 328 ms P-R-T Axes : 047 005 031 degrees QTc Int : 412 ms Normal sinus rhythm Low voltage QRS Inferior infarct , age undetermined Abnormal ECG Confirmed by MARSHA EL, ELZBIETA ([id number]), society editor JAHAIRA RAJAN ([id number]) on 08/19/2021 9:12:28 AM Referred By: PC Confirmed By:ELZBIETA LARSON MD
--- NOTE | 2021-08-18 12:54 | CT_ITS ---
STUDY: CT ABDOMEN AND PELVIS WITHOUT CONTRAST REASON FOR EXAM: Male, 51 years old. Decubitus ulcer overlying the right hip and sacrum. Patient is paraplegic. RADIATION DOSAGE (If Supplied By Facility): CTDIvol = ( 33.60 ) mGy, DLP = ( 2216.66 ) mGycm TECHNIQUE: Transaxial images were obtained from the dome of the diaphragm to the symphysis pubis without oral contrast, and without intravenous contrast. Sagittal and coronal images were reconstructed. Individualized dose optimization techniques were used for this CT. COMPARISON: None. FINDINGS: Mild degree of increased markings at the lung bases suggestive of bibasilar atelectasis. The visualized portions of the heart are within normal limits. Hepatomegaly. The patient is status post cholecystectomy. Normal spleen. Normal pancreas. Normal bilateral adrenal glands. Normal right kidney. Normal left kidney. Normal visualized stomach. Normal small intestine. There are multiple colonic diverticula consistent with diverticulosis. The appendix is visualized and appears normal. Normal abdominal aorta. Normal inferior vena cava. There is borderline retroperitoneal lymphadenopathy with enlarged nodes no greater than 10mm in the short axis diameter. A COUGHLIN catheter seen within an empty urinary bladder. Mild increased markings are seen in the subcutaneous tissues overlying the buttocks bilaterally although no focal abscess is seen. The patient is status post fusion of the T11-L3 vertebra. CT/Abdomen/Pelvis without Cont IMPRESSION: Hepatomegaly. Soft tissue edematous changes overlying both buttocks. No focal abscess is seen. Electronically Signed: Andre Irving MD at 14:33 EST ,
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
[2021-08-18 13:20] LABS: ALB/GLOB Ratio 0.8 RATIO (0.9-2.4); AST(SGOT) 33 U/L (15-37); Alanine Aminotransfer ALT/SGPT 49 U/L (16-61); Albumin, Serum 3.2 g/dL (3.2-5.0); Alkaline Phosphatase 78 U/L (45-117); Anion Gap 5 (5-15); BUN 24 mg/dL (7-18); BUN/Creat Ratio 23.3 RATIO (10-20); Calcium,Total 9.6 mg/dL (8.5-10.1); Chloride 101 mmol/L (98-107); Creatinine, Serum 1.03 mg/dL (0.70-1.30); EST Glomerular Filtration Rate 80 mL/min (>60); Est Glom Filt Rate - Afr Amer 97 mL/min (>60); Estimated Creatinine Clearance 82.94 ml/min; Globulin 4.2 g/dL (2.2-4.2); Glucose 136 mg/dL (74-106); Potassium 4.3 mmol/L (3.5-5.1); Protein, Total 7.4 g/dL (6.4-8.2); Sodium Level 136 mmol/L (136-145)
[2021-08-18 13:21] LABS: Erythrocyte Sedimentation Rate 51 mm/hr (0-20)
[2021-08-18 13:23] LABS: Absolute Lymphocyte Count 1.27 X10^3/uL (0.83-4.51); Absolute Neutrophil Count 7.7 X10^3/uL (2.0-7.7); Basophil# 0.04 X10^3/uL; Basophil% 0.4 % (0-1); Hematocrit 40.1 % (40-54); Hemoglobin 13.6 g/dL (13.0-16.5); Lymphocyte # 1.27 X10^3/ul (0.83-4.51); Lymphocyte % 12.6 % (19-41); Mean Corp Hgb Conc 33.9 g/dL (32-36); Mean Corpuscular Hgb 32.2 pg (27.0-32.0); Mean Corpuscular Volume 94.8 fL (80-94); Mean Platelet Vol. 10.4 fl (6.2-12.0); Monocyte# 0.86 X10^3/uL; Monocyte% 8.5 % (0-10); NRBC Flagged by Analyzer 0 % (0-5); Neutrophil # 7.69 X10^3/uL (2.7-7.7); Platelet Count 254 K/mm3 (150-450); RBC Distribution Width CV 12.7 % (11.6-14.6); RBC Distribution Width SD 44.2 fl (35.1-43.9); Red Blood Count 4.23 M/mm3 (4.6-6.2); White Blood Count 10.1 K/mm3 (4.4-11.0)
[2021-08-18 13:49] LABS: Color, Urine Yellow (Yellow); Glucose, Dipstick Normal (Normal); Ketone-Dipstick Negative (Negative); Leukocyte Esterase-Dipstick 25 /ul (Negative); Nitrite-Dipstick Positive (Negative); Occult Blood-Urine 250 /ul (Negative); Protein-Dipstick Negative (Negative); Specific Gravity, Urine 1.015 (1.002-1.030); Urine Bilirubin Dipstick Negative (Negative); Urine Clarity Sl. Cloudy (Clear); Urine Urobilinogen 1 mg/dl (Normal); Urine pH 6.5 (5.0 - 8.0)
[2021-08-18 14:03] LABS: Bacteria 4+ /hpf (None Seen); Red Blood Cells-Urine 10-25 SEEN /hpf (0-5); Squamous Epithelial Cells - UA 0-5 SEEN /hpf (0-5); White Blood Cells 0-5 SEEN /hpf (0-5)
[2021-08-18 14:04] LABS: Mucous, Urine RARE /hpf (<or=2+)
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
[2021-08-18 18:01] LABS: Bedside Glucose 130 mg/dL (74-106)
[2021-08-18] MEDS: Gabapentin 300 MG Capsule PO ×2 (18:16→20:54)
[2021-08-18] MEDS: Lisinopril 40 MG Tablet PO (18:16)
[2021-08-18] MEDS: Acetaminophen 500 MG Tablet PO ×2 (18:16→20:54)
[2021-08-18] MEDS: Insulin U-500 UNITS/ML PEN 175 UNITS SC (18:28)
[2021-08-18] MEDS: Enoxaparin 40 MG/0.4 ML Syringe SC (20:54)
[2021-08-18] MEDS: Atorvastatin Calcium 20 MG Tablet PO (20:55)
[2021-08-18] MEDS: Doxazosin 1 MG Tablet PO (20:55)
[2021-08-18 21:11] LABS: Bedside Glucose 232 mg/dL (74-106)
[2021-08-19 02:01] VITALS: PULSE 87; RESP 24; O2SAT 96
[2021-08-19 03:13] VITALS: BP 99/47; PULSE 89; RESP 20; TEMP 36.6; O2SAT 96
[2021-08-19] MEDS: Acetaminophen 325 MG Tablet 650 MG PO (03:50)
[2021-08-19 05:34] LABS: Absolute Lymphocyte Count 1.33 X10^3/uL (0.83-4.51); Basophil# 0.05 X10^3/uL; Basophil% 0.5 % (0-1); Eosinophil# 0.15 X10^3/uL; Eosinophils% 1.6 % (0-5); Hematocrit 35.1 % (40-54); Hemoglobin 11.6 g/dL (13.0-16.5); Lymphocyte # 1.33 X10^3/ul (0.83-4.51); Lymphocyte % 14.2 % (19-41); Mean Corpuscular Hgb 30.9 pg (27.0-32.0); Mean Corpuscular Volume 93.6 fL (80-94); Mean Platelet Vol. 9.8 fl (6.2-12.0); Monocyte# 0.75 X10^3/uL; NRBC Flagged by Analyzer 0 % (0-5); Neutrophil # 6.99 X10^3/uL (2.7-7.7); Neutrophil % 74.4 % (47-70); Platelet Count 223 K/mm3 (150-450); RBC Distribution Width CV 12.5 % (11.6-14.6); RBC Distribution Width SD 43.3 fl (35.1-43.9); Red Blood Count 3.75 M/mm3 (4.6-6.2); White Blood Count 9.4 K/mm3 (4.4-11.0)
[2021-08-19 06:05] LABS: Anion Gap 4 (5-15); BUN 22 mg/dL (7-18); BUN/Creat Ratio 25.1 RATIO (10-20); Calcium,Total 8.7 mg/dL (8.5-10.1); Chloride 102 mmol/L (98-107); Creatinine, Serum 0.88 mg/dL (0.70-1.30); EST Glomerular Filtration Rate 97 mL/min (>60); Est Glom Filt Rate - Afr Amer 117 mL/min (>60); Estimated Creatinine Clearance 103.39 ml/min; Glucose 147 mg/dL (74-106); Potassium 4.1 mmol/L (3.5-5.1); Sodium Level 134 mmol/L (136-145)
[2021-08-19 07:27] VITALS: O2SAT 92
[2021-08-19 07:45] LABS: Bedside Glucose 141 mg/dL (74-106)
[2021-08-19 09:14] VITALS: BP 122/69; PULSE 84; RESP 16; TEMP 36.4; O2SAT 93
--- NOTE | 2021-08-19 09:35 | WOUNDNOTE ---
wound photo: left lateral ankle
--- NOTE | 2021-08-19 09:35 | WOUNDNOTE ---
wound photo: bilateral buttocks
--- NOTE | 2021-08-19 09:36 | WOUNDNOTE ---
wound photo: right lateral thigh
[2021-08-19] MEDS: Insulin U-500 UNITS/ML PEN 120 UNITS SC ×2 (09:45→12:04)
[2021-08-19] MEDS: Cholecalciferol (VIT D3) 25 MCG TABLET (1,000 UNITS) 50 MCG PO (09:46)
[2021-08-19] MEDS: hydroCHLOROthiazide 25 MG Tablet PO (09:46)
[2021-08-19] MEDS: Enoxaparin 40 MG/0.4 ML Syringe SC (09:46)
[2021-08-19] MEDS: Acetaminophen 500 MG Tablet PO ×3 (09:48→17:14)
[2021-08-19] MEDS: Lisinopril 40 MG Tablet PO (09:48)
[2021-08-19] MEDS: Gabapentin 300 MG Capsule PO ×3 (09:48→17:14)
[2021-08-19] MEDS: amLODIPine 5 MG Tablet PO (09:48)
[2021-08-19] MEDS: Menthol/Lanolin/Calamine/Znox 113 GM Tube 1 APPLIC TOPICAL (10:23)
--- NOTE | 2021-08-19 11:02 | CASEMGMT ---
Addendum entered by Adriana Turner 08/19/21 13:42: TC to Anmol at [facility] to check on referral, left vm. DEENA PRASAD in to pt room. He states he had an appt for next at the wound center. TC to Wound Center who states pt had not rescheduled. Pt is aware and states he can call in to make his follow up appt. Original Note: Spoke with hospitalist and wound nurse regarding pt care. [place] [facility] [place] pressure overlay. She states d/t size of pt bed, this will take approx 2 weeks. DEENA PRASAD in to pt room, pt sitting up in bed in no distress. Pt states he has his mother available to assist with wound care. He is aware that [facility] will not come daily for the dressing changes. He states he is aware and his mother is able to do the dressing changes but she was not sure how to handle prior to the hospitalization. He states that with her having direction on the correct dressings she can perform wound care. He states his mother assist pt with catheter and bowel routine and his aide assists with bathing and dressing. Patient was provided a list of [facility] providers including quality and resource use data and consistent with the patient?s preferred geographic region, medical needs, and insurance network. The patient?s preferred provider is [facility] although he states he will go with any provider. Pt is aware that the mattress will not be immediately delivered to the home. Referral faxed to [facility] at this time.
[2021-08-19 11:21] LABS: Bedside Glucose 204 mg/dL (74-106)
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
[2021-08-19 11:41] VITALS: BP 121/62; PULSE 92; RESP 16; TEMP 36.7; O2SAT 95
[2021-08-19] MEDS: Insulin Lispro 100 UNIT/ML INSULN.PEN SC ×2 (12:03→17:12)
[2021-08-19 15:18] VITALS: BP 127/52; PULSE 92; RESP 18; TEMP 37; O2SAT 93
[2021-08-19 16:11] LABS: Bedside Glucose 248 mg/dL (74-106)
[2021-08-19] MEDS: Insulin U-500 UNITS/ML PEN 175 UNITS SC (17:12)
--- NOTE | 2021-08-25 15:13 | CASEMGMT ---
Received tc from Emma at [facility] stating pt has called in asking when they are coming. States that [facility] has not been out to see him. TC to Anmol at [facility] to check on referral, left message. TC to main office, spoke with Alessandra, she states that they plan to see pt on Sunday. Made aware that pt dc'd last Sunday. TC to pt, he states that he could not remember which agency was set up. He states his mother has been doing his dressing changes and he has supplies to get him through until next week. He is aware that [facility] will be in touch with him to come out next week. He states he has been in touch with the wound center but is awaiting to hear back from them as there is difficulty with the bed and his weight. Pt denies further needs. Provided him with the phone number and name of agency.
== END 2021-08-19 21:05 | disposition home health service (06) | DRG 380 ==
LOC: ED 15:57 → MS3 16:50
PROVIDERS: Emergency Provider Emergency Medicine; PCP Internal Medicine; Visit Provider Internal Medicine
DX: L89.312 Pressure ulcer of right buttock, stage 2 (principal); G82.20 Paraplegia, unspecified; Z68.45 Body mass index [BMI] 70 or greater, adult; E11.42 Type 2 diabetes mellitus with diabetic polyneuropathy; D64.9 Anemia, unspecified; B95.61 Methicillin susceptible Staphylococcus aureus infection as the cause of diseases classified elsewhere; Z79.4 Long term (current) use of insulin; E66.01 Morbid (severe) obesity due to excess calories; E55.9 Vitamin D deficiency, unspecified; E78.5 Hyperlipidemia, unspecified; I10 Essential (primary) hypertension; K59.00 Constipation, unspecified; F32.A Depression, unspecified; R82.71 Bacteriuria; Z98.1 Arthrodesis status; Z79.899 Other long term (current) drug therapy; Z87.891 Personal history of nicotine dependence
CPT/HCPCS: 51702; 74176; 80048; 80053; 81001; 82962; 85025; 85652; 86140; 87040; 87070; 87077; 87186; 87205; 93005; 94660; 97802; 99285; J7040; J7050; A4216; J0295

== ENCOUNTER 2021-08-29 15:07 | Inpatient (IN) | payer MEDICAID, SELFPAY ==
[2021-08-29] VITALS (10 sets, daily range): BP systolic 123–139; BP diastolic 51–75; PULSE 89–110; RESP 16–24; TEMP 36.9–37.3; O2SAT 92–97; BMI 66.0; BMI 63.7
--- NOTE | 2021-08-29 15:35 | CT_ITS ---
HISTORY: large sacral pressure wound EXAMINATION: CT Pelvis W/ Contrast Injection TECHNIQUE: Helically acquired images were obtained of the pelvis. A radiation dose optimization technique was used for this scan. IV Contrast dosage and agent: 100mL Isovue-300 Oral contrast: None. COMPARISON: 08/18/21 CT abdomen and pelvis FINDINGS: Portions of ventral and lateral body wall excluded from [id number] bilaterally. LYMPH NODES: No enlarged pelvic lymph nodes. VISUALIZED BOWEL LOOPS: Unremarkable. URINARY BLADDER: Unremarkable. REPRODUCTIVE ORGANS: No pelvic masses or pelvic ascites. ABDOMINAL WALL: Diffuse subcutaneous soft tissue edema over the posterior perineum bilaterally without alaina fluid collection or definite skin defect within limits of CT technique. Edema of the bilateral thighs. BONES: Degenerative changes of the right hip without acute or destructive lesion. CT/Pelvis WITH IV Contrast IMPRESSION: Nonspecific posterior peroneal subcutaneous edema/cellulitis without abscess collection or skin defect. Individualized dose optimization techniques were used for this CT. at 1716 Reported and signed by: Henry Perdomo MD Electronically Signed: Henry Perdomo MD at 17:15 EDT ,
--- NOTE | 2021-08-29 15:35 | EKG12_ITS ---
Test Reason : Blood Pressure : / mmHG Vent. Rate : 105 BPM Atrial Rate : 105 BPM P-R Int : 186 ms QRS Dur : 088 ms QT Int : 334 ms P-R-T Axes : 049 024 041 degrees QTc Int : 441 ms Sinus tachycardia Low voltage QRS Nonspecific ST abnormality Abnormal ECG Confirmed by CORNELIUS EL, TRISTIAN ([id number]), food expeditor JAHAIRA RAJAN ([id number]) on 09/01/2021 10:00:59 AM Referred By: MICHELINE Confirmed By:TRISTIAN SHIELDS MD
--- NOTE | 2021-08-29 15:37 | EDS_ITS ---
HPI History of Present Illness Chief Complaint: Wound Check Informant: patient Onset/Context/Timing Onset: Month(s) (1, total; see below) Context: Gradual Onset Timing: Continuous Quality: wounds due to pressure/friction Location: left lat ankle, right thigh, sacral decub Current Severity: Severe Maximum Severity: Severe Worsened by: areas being dependent Relieved by: nothing Associated Symptoms Associated Symptoms: fevers w/ Tmax 103 for past week Narrative Narrative: Patient is paraplegic. He has a new bed at home, and he has developed an ulceration on the lateral aspect of his left ankle that started about 1 month ago. Around 2 weeks ago, he started developing sacral decubitus ulcer within 3 or 4 days of getting the new bed, and he also sustained a friction burn/wound on his right lateral thigh from the wheel of his wheelchair accidentally causing it. Since he is mostly bedbound, the sacral decubitus ulceration/wound has progressively become worse. He was seen here about 10 days ago, prescribed antibiotics. Family had trouble getting the antibiotics filled and to him, and he was not able to start them until about 4 days after the visit. Wound care was also delayed, and today was the first day that wound care arrived at the home to see and treat him. He states that in the last week, the wound has progressively been worse according to his family who has been treating it and watching it, he has developed discharge that is foul-smelling and it is not looking good. Wound care evaluated it today and recommended that he come to the hospital to be admitted for more than they can accomplish at the patient's home. [facility] Medical History Anxiety and depression Avelar's palsy Blister (nonthermal), right foot, initial encounter Chronic ulcer of right foot with fat layer exposed CPAP (continuous positive airway pressure) dependence Diabetes DVT (deep venous thrombosis) Edema of both lower extremities Former smoker Headache History of foot ulcer history of tooth removal Hyperlipidemia Hypertension Insomnia Left shoulder pain Neuropathic pain Obesities, morbid Obstructive sleep apnea On home oxygen therapy Osteoporosis Paraplegia Pressure ulcer Primary osteoarthritis, left shoulder Self-catheterizes urinary bladder Skin ulcer of left hip Skin ulcer of right hip Sleep apnea Stage II pressure ulcer Stage II pressure ulcer of buttock Type 2 diabetes mellitus with diabetic polyneuropathy Home Medications male urinal #1 ea 08/23/18 [Rx Last Taken Unknown] wash basin #1 ea 08/23/18 [Rx Last Taken Unknown] gauze bandage 4 X 4 #2000 ea 04/22/19 [Rx Last Taken Unknown] shower chair bariatric #1 ea 04/29/19 [Rx Last Taken Unknown] lancets 28 gauge #200 ea 07/04/19 [Rx Last Taken Unknown] hydrocortisone 2.5 % topical ointment 1 applic TOPICAL BID PRN #454 g 07/01/20 [Rx Last Taken 08/18/21] OneTouch Verio Flex meter #1 ea NS 07/16/20 [Rx Last Taken Unknown] lancets 33 gauge #100 ea 07/16/20 [Rx Last Taken Unknown] cholecalciferol (vitamin D3) 250 mcg (10,000 unit) capsule 2,000 unit PO DAILY cap 07/29/20 [History Last Taken 08/17/21] Wood transfer board, 32 inches in length 10 inches wide 1/2 inch thick #1 ea 09/06/20 [Rx Last Taken Unknown] lancets 33 gauge #100 each 09/16/20 [Rx Last Taken Unknown] compr.stocking,thigh,reg,large #6 ea 11/11/20 [Rx Last Taken Unknown] compress.stocking,knee,reg,lrg #6 ea 11/12/20 [Rx Last Taken Unknown] OneTouch Verio test strips #100 ea NS 07/08/21 [Rx Last Taken Unknown] lisinopril 40 mg tablet 40 mg PO QDAY #90 tab 07/08/21 [Rx Last Taken 08/17/21] cpap mask #1 ea 07/14/21 [Rx Last Taken Unknown] amlodipine 5 mg tablet 5 mg PO DAILY #30 tab 08/02/21 [Rx Last Taken 08/17/21] Humulin R U-500 (Conc) Insulin 175 unit SUBCUT DINNER 08/18/21 [History Last Taken 08/17/21] Humulin R U-500 (Conc) Kwikpen 120 unit SUBCUT BREAKFAST 08/18/21 [History Last Taken 08/18/21] Humulin R U-500 (Conc) Kwikpen 120 unit SUBCUT LUNCH 08/18/21 [History Last Taken 08/17/21] Trulicity 4.5 mg SUBCUT FR 08/18/21 [History Last Taken 08/12/21] acetaminophen 650 mg PO 4X/DAY 08/18/21 [History Last Taken 08/18/21 05:00] docusate sodium [Colace] 100 mg PO QODAY 08/18/21 [History Last Taken 08/18/21 100] gabapentin 300 mg PO 4X/DAY 08/18/21 [History Last Taken 08/18/21] atorvastatin 20 mg tablet 20 mg PO QHS #90 tab 08/22/21 [Rx Last Taken Unknown] doxazosin 1 mg tablet 1 mg PO QHS #30 tab 08/22/21 [Rx Last Taken Unknown] hydrochlorothiazide 25 mg tablet 25 mg PO DAILY #90 tab 08/22/21 [Rx Last Taken Unknown] pen needle, diabetic 32 gauge x #100 ea 08/22/21 [Rx Last Taken Unknown] lurasidone [Latuda] 30 mg PO DAILY 08/29/21 [History Last Taken Unknown] Allergy/AdvReac Type Severity Reaction Status Date / Time No Known Allergies Allergy Verified 08/29/21 15:12 Family History Father Heart disease Myocardial infarction, Onset Age: 64 Hyperlipemia Mother Heart disease Hypertension Hyperlipemia Uncle Heart disease Grandfather Diabetes Grandmother Diabetes Surgical History History of back surgery Social History Smoking Status: Former smoker alcohol intake: former substance use type: does not use what type of physical activity do you participate in: none ROS ROS ED Constitutional Constitutional ED: Reports chills, fever(s) and malaise Eyes Eyes: Denies change in vision or diplopia ENT ENT ED: Denies rhinorrhea or sore throat Cardiovascular Cardiovascular: Denies chest pain or palpitations Respiratory/Chest Respiratory/Chest: Denies cough or dyspnea Gastrointestinal Gastrointestinal: Reports other Details: Lower abdominal itching without pain ; Denies abdominal pain, diarrhea, nausea or vomiting Genitourinary Genitourinary ED: Denies dysuria or hematuria Musculoskeletal Musculoskeletal: Denies back pain or neck pain Integumentary Reports as per HPI and wounds; Denies abscess or rash Neurologic Neurologic: Reports numbness, weakness and other Details: Paraplegia with sensory level in the T11-L3 range ; Denies headache(s) Psychiatric Psychiatric: Denies anxiety or suicidal thoughts EXAM Physical Exam Const Vital Signs: 08/29/21 15:08 08/29/21 15:43 08/29/21 15:50 Temperature 99.2 F H 98.9 F Temperature Source Temporal Temporal Pulse Rate 107 H 110 H Respiratory Rate 16 24 H Blood Pressure 132/68 H 132/62 H Blood Pressure Mean 89 85 Pulse Ox 94 96 Oxygen Delivery Method Room Air Room Air 08/29/21 17:15 08/29/21 17:18 Temperature 99.0 F Temperature Source Oral Pulse Rate Respiratory Rate Blood Pressure 139/54 H Blood Pressure Mean 82 Pulse Ox 92 Oxygen Delivery Method Room Air Positive well nourished and well developed General Appearance ED: well developed and NAD Nutritional Appearance: morbidly obese HEENT Reports moist mucous membranes normocephalic and atraumatic Eyes PERRL and EOMs intact bilaterally Neck full ROM and supple Resp normal respiratory effort and clear to auscultation bilaterally Cardio regular rate, regular rhythm and no murmurs Rate: Negative for tachycardic GI non-tender and non-distended GI Narrative: Edema with peau d'orange appearance lower abdominal wall all the way across, no evidence of candidal infection or cellulitis/tenderness/abscess Auscultation: normoactive bowel sounds Palpation: soft Back/Spine no CVA tenderness General Back: other FROM Extremity Extremity Narrative: Wound without infection left lateral ankle/malleolus General Extremety ED: Yes edema; Negative for pulses abnormal or tenderness General Extremity: edema bilateral lower extremity Details: severe; Negative for pulses abnormal Neuro oriented x3 and CN's II-XII intact bilaterally Neuro Narrative: Paraplegic. Sensory level in lower abdominal wall. Normal strength bilateral upper extremities. Sensorium / Orientation: awake and alert Skin Skin Narrative: Superficial healing ulceration with granulation tissue and no signs of infection left lateral malleolus. 8 cm linear wound right proximal posterior thigh/buttock with granulation tissue and no signs of infection or tenderness. Large area of sacral decubitus ulcer with approximately 6 cm of black tissue, nontender because it is below patient's sensory level. No expressible purulent material. Redundant tissue limits exam. No palpable subcutaneous emphysema. Surrounding erythema and large area. Very mild erythema at dependent aspect of the scrotum where there is barrier cream/Desitin, and no sign of infection or ulceration there. MDM MDM MDM Narrative Medical decision making narrative: Clinically concern is for his sacral wound. The others look good. The sacral wound appears to have cellulitis, there is no purulent discharge, but there is some skin that I question the viability of. Also in the differential as opposed to necrotic tissue is just dependent purpuric tissue. For these reasons work-up was done including a CT of the area with IV contrast, does not show an abscess or subcutaneous emphysema likely. Discussed all this with Dr. Flores who would be happy to consult on this patient in the hospital. Started on Zosyn for now and will discuss with hospitalist. Patient is clinically and hemodynamically stable. 1 view chest x-ray monitor potation negative for any acute. Radiology in agreement. Lab Data Attestation: I reviewed the patient's lab results. Labs: Laboratory Results - last 24 hr 08/29/21 08/29/21 08/29/21 15:20 15:20 15:20 WBC 14.0 H RBC 3.22 L Hgb 9.7 L Hct 31.0 L MCV 96.3 H MCH 30.1 MCHC 31.3 L RDW Std Deviation 45.5 H RDW Coeff of Fei 12.8 Plt Count 398 MPV 10.2 Neut % (Auto) Not Reportable Absolute Neuts (auto) 11.1 H Absolute Lymphs (auto) 0.98 Total Counted 100 Neutrophils % (Manual) 76 H Band Neutrophils % 3 Lymphocytes % (Manual) 7 L Monocytes % (Manual) 10 Eosinophils % (Manual) 2 Metamyelocytes % 2 H Diff Path Review May foll Platelet Estimate ADEQUATE RBC Morphology NORM C+C PT 14.5 INR 1.2 APTT 31.2 Sodium 137 Potassium 5.1 Chloride 103 Carbon Dioxide 30.0 Anion Gap 4 L BUN 24 H Creatinine 1.12 Estim Creat Clear Calc 81.24 Est GFR (MDRD) Af Amer 88 Est GFR (MDRD) Non-Af 73 BUN/Creatinine Ratio 21.4 H Glucose 111 H Lactic Acid Calcium 10.0 Total Bilirubin 0.50 AST 83 H ALT 107 H Alkaline Phosphatase 121 H Total Protein 7.1 Albumin 2.3 L Globulin 4.8 H Albumin/Globulin Ratio 0.5 L Urine Color Urine Clarity Urine pH Ur Specific [place] Urine Protein Urine Glucose (UA) Urine Ketones Urine Occult Blood Urine Nitrite Urine Bilirubin Urine Urobilinogen Ur Leukocyte Esterase Urine RBC Urine WBC Ur Squamous Epith Cells Urine Bacteria Urine Mucus 08/29/21 08/29/21 15:20 17:05 WBC RBC Hgb Hct MCV MCH MCHC RDW Std Deviation RDW Coeff of Fei Plt Count MPV Neut % (Auto) Absolute Neuts (auto) Absolute Lymphs (auto) Total Counted Neutrophils % (Manual) Band Neutrophils % Lymphocytes % (Manual) Monocytes % (Manual) Eosinophils % (Manual) Metamyelocytes % Diff Path Review Platelet Estimate RBC Morphology PT INR APTT Sodium Potassium Chloride Carbon Dioxide Anion Gap BUN Creatinine Estim Creat Clear Calc Est GFR (MDRD) Af Amer Est GFR (MDRD) Non-Af BUN/Creatinine Ratio Glucose Lactic Acid 1.3 Calcium Total Bilirubin AST ALT Alkaline Phosphatase Total Protein Albumin Globulin Albumin/Globulin Ratio Urine Color Yellow Urine Clarity Clear Urine pH 6.0 Ur Specific [place] 1.010 Urine Protein Negative Urine Glucose (UA) Normal Urine Ketones Negative Urine Occult Blood Negative Urine Nitrite Negative Urine Bilirubin Negative Urine Urobilinogen Normal Ur Leukocyte Esterase Negative Urine RBC 0 SEEN Urine WBC 0-5 SEEN Ur Squamous Epith Cells 0 SEEN Urine Bacteria RARE Urine Mucus 0 SEEN Radiography Diagnostic Testing: Clinical Impression(s) from Imaging Studies Pelvis CT 08/29/21 15:35 IMPRESSION: Nonspecific posterior peroneal subcutaneous edema/cellulitis without abscess collection or skin defect. Individualized dose optimization techniques were used for this CT. at 1716 Reported and signed by: Henry Perdomo MD Electronically Signed: Henry Perdomo MD at 17:15 EDT , Chest X-Ray 08/29/21 15:40 IMPRESSION: No acute findings. Electronically Signed: Zacahry Wright, at 16:01 EDT , EKG Initial EKG: Attestation: I personally reviewed and interpreted this EKG as follows: Interpretation: No Acute Injury Pattern and Sinus Tachycardia Comments: Low voltage likely due to morbid obesity Prior EKG tracings: available for review Prior: Unchanged Discharge Plan Dx/Rx/DC Orders Clinical Impression: Sepsis, Paraplegia, Wound infection, Sacral wound Disposition Disposition: Acute Care Hospital [facility]
--- NOTE | 2021-08-29 15:40 | RAD_ITS ---
INDICATION: fever EXAMINATION/TECHNIQUE: X-RAY - XR Chest 1 View COMPARISON: None. FINDINGS: Support devices: None. No focal consolidations, effusions, or sizable pneumothorax. Cardiomediastinal silhouette is within normal limits. Partially visualized surgical fusion hardware in the lumbar spine. No acute findings in the bones or soft tissues. RAD/Chest 1 View (Portable) IMPRESSION: No acute findings. Electronically Signed: Zachary Wright, at 16:01 EDT ,
[2021-08-29 15:54] LABS: Hemoglobin 9.7 g/dL (13.0-16.5); Mean Corp Hgb Conc 31.3 g/dL (32-36); Mean Corpuscular Hgb 30.1 pg (27.0-32.0); Mean Corpuscular Volume 96.3 fL (80-94); Mean Platelet Vol. 10.2 fl (6.2-12.0); POSITIVE COUNT YES; POSITIVE MORPHOLOGY YES; Platelet Count 398 K/mm3 (150-450); RBC Distribution Width CV 12.8 % (11.6-14.6); RBC Distribution Width SD 45.5 fl (35.1-43.9); Red Blood Count 3.22 M/mm3 (4.6-6.2)
[2021-08-29 16:03] LABS: Differential Indicated MANUAL DIFF; International Normalized Ratio 1.2; Prothrombin Time (Protime)PT. 14.5 SECONDS (11.7-14.9)
[2021-08-29 16:04] LABS: Partial Thromboplast Time 31.2 Seconds (24.1-36.2)
[2021-08-29 16:18] LABS: Lactic Acid 1.3 mmol/L (0.4-1.9)
[2021-08-29 16:22] LABS: ALB/GLOB Ratio 0.5 RATIO (0.9-2.4); AST(SGOT) 83 U/L (15-37); Alanine Aminotransfer ALT/SGPT 107 U/L (16-61); Albumin, Serum 2.3 g/dL (3.2-5.0); Alkaline Phosphatase 121 U/L (45-117); Anion Gap 4 (5-15); BUN 24 mg/dL (7-18); BUN/Creat Ratio 21.4 RATIO (10-20); Chloride 103 mmol/L (98-107); Creatinine, Serum 1.12 mg/dL (0.70-1.30); EST Glomerular Filtration Rate 73 mL/min (>60); Est Glom Filt Rate - Afr Amer 88 mL/min (>60); Estimated Creatinine Clearance 81.24 ml/min; Globulin 4.8 g/dL (2.2-4.2); Glucose 111 mg/dL (74-106); Potassium 5.1 mmol/L (3.5-5.1); Protein, Total 7.1 g/dL (6.4-8.2); Sodium Level 137 mmol/L (136-145)
[2021-08-29 16:32] LABS: Eosinophil 2 % (0-5); Lymphocyte 7 % (19-41); Metamyelocyte 2 % (0-1); Monocyte 10 % (0-10); Neutrophil-Band 3 % (0-5); Neutrophil-Segmented 76 % (47-70); Total Cells Counted 100 (MANUAL DIFF)
[2021-08-29 16:33] LABS: Platelet Estimate ADEQUATE (ADEQ); Red Cell Morphology NORM C+C NORMAL (NORM C&C)
[2021-08-29 16:35] LABS: Absolute Lymphocyte Count 0.98 X10^3/uL (0.83-4.51); Absolute Neutrophil Count 11.1 X10^3/uL (2.0-7.7)
[2021-08-29 17:16] LABS: Mucous, Urine 0 SEEN /hpf (<or=2+); Squamous Epithelial Cells - UA 0 SEEN /hpf (0-5)
[2021-08-29 17:18] LABS: Color, Urine Yellow (Yellow); Glucose, Dipstick Normal (Normal); Ketone-Dipstick Negative (Negative); Leukocyte Esterase-Dipstick Negative /ul (Negative); Nitrite-Dipstick Negative (Negative); Occult Blood-Urine Negative /ul (Negative); Protein-Dipstick Negative (Negative); Urine Bilirubin Dipstick Negative (Negative); Urine Clarity Clear (Clear); Urine Urobilinogen Normal (Normal)
[2021-08-29 17:33] LABS: Bacteria RARE /hpf (None Seen); Red Blood Cells-Urine 0 SEEN /hpf (0-5); White Blood Cells 0-5 SEEN /hpf (0-5)
--- NOTE | 2021-08-29 18:08 | NURSING ---
DR CONDE FOR DR TOBIAS
--- NOTE | 2021-08-29 18:17 | NURSING ---
MED SURG TERELETSKY SACRAL WOUND INFECTION, PARAPLEGIA
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
[2021-08-29 19:46] LABS: Bedside Glucose 63 mg/dL (74-106)
[2021-08-29] MEDS: Fleet Enema 1 ML RC (19:59)
[2021-08-29 20:11] LABS: Iron 30 ug/dL (65-175); Iron Binding Capacity,Total 177 ug/dL (250-450); PERCENT IRON SATURATION 16.9 % (15.0-55.0)
[2021-08-29] MEDS: Atorvastatin Calcium 20 MG Tablet PO (20:57)
[2021-08-29] MEDS: Gabapentin 300 MG Capsule PO (20:57)
[2021-08-29] MEDS: Doxazosin 1 MG Tablet PO (20:57)
[2021-08-29] MEDS: Acetaminophen 500 MG Tablet PO (20:57)
[2021-08-29] MEDS: Enoxaparin 40 MG/0.4 ML Syringe SC (20:58)
[2021-08-29 21:36] LABS: Bedside Glucose 128 mg/dL (74-106)
[2021-08-30] VITALS (7 sets, daily range): BP systolic 107–134; BP diastolic 55–65; PULSE 90–100; RESP 18–28; TEMP 37.1–37.9; O2SAT 90–96
--- NOTE | 2021-08-30 06:02 | CPS ---
Pt c/o dryness, pt took off before 1:30am
[2021-08-30] MEDS: Piperacil/Tazobactam 3.375 GM/50 ML ML IV ×3 (06:08→22:31)
[2021-08-30 06:13] LABS: Hematocrit 31.2 % (40-54); Hemoglobin 10.2 g/dL (13.0-16.5); Mean Corp Hgb Conc 32.7 g/dL (32-36); Mean Corpuscular Hgb 30.4 pg (27.0-32.0); Mean Corpuscular Volume 92.9 fL (80-94); Mean Platelet Vol. 9.4 fl (6.2-12.0); POSITIVE COUNT YES; POSITIVE MORPHOLOGY YES; Platelet Count 356 K/mm3 (150-450); RBC Distribution Width CV 12.7 % (11.6-14.6); RBC Distribution Width SD 43.5 fl (35.1-43.9); Red Blood Count 3.36 M/mm3 (4.6-6.2); White Blood Count 9.7 K/mm3 (4.4-11.0)
[2021-08-30 06:45] LABS: Anion Gap 4 (5-15); BUN 17 mg/dL (7-18); BUN/Creat Ratio 23.9 RATIO (10-20); Calcium,Total 9.3 mg/dL (8.5-10.1); Chloride 105 mmol/L (98-107); Creatinine, Serum 0.71 mg/dL (0.70-1.30); EST Glomerular Filtration Rate 123 mL/min (>60); Est Glom Filt Rate - Afr Amer 149 mL/min (>60); Estimated Creatinine Clearance 128.15 ml/min; Glucose 179 mg/dL (74-106); Potassium 4.7 mmol/L (3.5-5.1); Sodium Level 136 mmol/L (136-145)
[2021-08-30 06:52] LABS: Differential Indicated MANUAL DIFF; Total Cells Counted 100 (MANUAL DIFF)
[2021-08-30 06:53] LABS: Basophil 2 % (0-1); Eosinophil 1 % (0-5); Lymphocyte 9 % (19-41); Metamyelocyte 2 % (0-1); Monocyte 7 % (0-10); Myelocyte 1 % (0-0); Neutrophil-Segmented 78 % (47-70); Platelet Estimate ADEQUATE (ADEQ)
[2021-08-30 06:54] LABS: Absolute Neutrophil Count 7.6 X10^3/uL (2.0-7.7); Red Cell Morphology NORM C+C NORMAL (NORM C&C)
[2021-08-30 06:55] LABS: Absolute Lymphocyte Count 0.88 X10^3/uL (0.83-4.51); Lymphocyte # 0.88 X10^3/ul (0.83-4.51)
[2021-08-30 08:02] LABS: Bedside Glucose 189 mg/dL (74-106)
[2021-08-30] MEDS: Insulin Lispro 100 UNIT/ML INSULN.PEN SC ×4 (08:30→22:25)
[2021-08-30] MEDS: Insulin U-500 UNITS/ML PEN 120 UNITS SC ×2 (08:33→12:44)
--- NOTE | 2021-08-30 08:51 | WOUNDNOTE ---
wound photo: bilateral buttocks
--- NOTE | 2021-08-30 08:54 | WOUNDNOTE ---
wound photo: left lateral ankle
--- NOTE | 2021-08-30 08:55 | WOUNDNOTE ---
wound photo: right lateral thigh
[2021-08-30] MEDS: Docusate Sodium 100 MG Capsule PO (10:31)
[2021-08-30] MEDS: Acetaminophen 500 MG Tablet PO ×4 (10:32→22:30)
[2021-08-30] MEDS: amLODIPine 5 MG Tablet PO (10:32)
[2021-08-30] MEDS: Lisinopril 40 MG Tablet PO (10:32)
[2021-08-30] MEDS: Gabapentin 300 MG Capsule PO ×4 (10:32→22:30)
[2021-08-30] MEDS: Enoxaparin 40 MG/0.4 ML Syringe SC ×2 (11:01→22:29)
[2021-08-30] MEDS: Furosemide 40 MG/4 ML Vial IV (11:03)
[2021-08-30] MEDS: Glucerna Shake 120 ML LIQUID PO ×4 (11:11→22:31)
[2021-08-30 11:36] LABS: Bedside Glucose 226 mg/dL (74-106)
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
--- NOTE | 2021-08-30 12:50 | CASEMGMT ---
TC to Anmol at [facility] who states that they did not admit pt to services as they sent him back to the hospital. She states that pt did not have anyone in the home who could perform wound care nor was it completed since pt hospital dc. She states they are unable to accommodate pt post hospitalization due to this. DEENA PRASAD in to pt room. Pt sitting up in bed eating lunch. Pt states his mother was completing the dressing changes twice a day, he states he did have supplies. He states on day that [facility] came they did not do dressing change in anticipation of the visit at 1030 but they did not show up until after 1230. Asked pt if this DEENA PRASAD could call his mother. He states he would call her in the room. Pt called her. DEENA PRASAD spoke with her on speaker. She states she did do the dressing changes twice a day to the best of her ability. She states she told pt last hospital stay that she would do it and she followed through. She states she is in her 80's and uses a walker and it is not easy but she wants to care for pt. Pt reports was in to see him and the plan is for surgery tomorrow as long as anesthesia is willing. He states that will find a surgeon to do a colostomy. Pt mother did not know what this was. Explained this to her. Spoke about if this will indeed happen, this will be added care and is this something that pt and mother could manage at home. Pt mother states she would try. Pt states to mother that she need to just do it and quit bitching about it. Pt mother stated again she did the best she could. Pt states it takes her 3 hours to do the dressings. Pt mother states I know he doesn't want to go anywhere but home. Discussed that the care would be increasing and pt was not successful this past time post hospitalization. Pt mother then states she cannot do it. She states she has tried. Provided support to her. Pt then states he does not want to overwhelm her. Phone call ended with mother. DEENA PRASAD to follow, pt open to SNF placement post hospitalization. Notified Laury HOGUE.
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
--- NOTE | 2021-08-30 14:06 | CHAPLAIN ---
Type of Pastoral Visit _x__ Initial Visit ___ Follow-up Visit ___ On-call Visit ___ General Patient Visit ___ Spiritual Assessment ___ Family Conference ___ Bereavement ___ Rapid Response ___ Code Blue ___ Other (describe below) Pastoral Care Referral From _x__ Patient ___ Family ___ Nurse ___ Physician ___ Psychological Operations Specialist ___ Early Childhood Services Coordinator ___ Other (describe below) Sacrament/Intervention _x__ Active listening ___ Anointing ___ Sabianism ___ Bereavement ___ Communion _x__ Freya exploration ___ _x__ Life review _x__ Prayer ___ Reconciliation ___ Sacrament of Sick _x__ Supportive presence ___ Wedding ___ Other (describe below) Pastoral Comments patient gives reason for admission and expresses some frustration over lateness of medical treatment at home, at lack of support from people other than his mother and daughter, his marital situation, and for his future; pt talks of the value of life; pt welcomes prayer support and time to talk with someone
--- NOTE | 2021-08-30 14:55 | NURSING ---
student charting reviewed by Avila RN, instructor
[2021-08-30 16:16] LABS: Bedside Glucose 184 mg/dL (74-106)
[2021-08-30] MEDS: Insulin U-500 UNITS/ML PEN 175 UNITS SC (17:29)
--- NOTE | 2021-08-30 18:41 | CASEMGMT ---
Social Work Note SW received referral for SNF placement. SW unable to meet with pt today, will follow up with pt tomorrow regarding SNF. Feli Arce AMMUNITION STORAGE SUPERINTENDENT, HEAD ORTHOPEDIC TEAM PHYSICIAN
[2021-08-30] MEDS: Doxazosin 1 MG Tablet PO (22:28)
[2021-08-30] MEDS: Atorvastatin Calcium 20 MG Tablet PO (22:28)
[2021-08-30 22:41] LABS: Bedside Glucose 155 mg/dL (74-106)
[2021-08-31 01:34] VITALS: PULSE 90; RESP 23; O2SAT 92
[2021-08-31] MEDS: Piperacil/Tazobactam 3.375 GM/50 ML ML IV ×2 (06:15→13:38)
[2021-08-31 06:23] LABS: Hematocrit 31.9 % (40-54); Hemoglobin 10.5 g/dL (13.0-16.5); Mean Corp Hgb Conc 32.9 g/dL (32-36); Mean Corpuscular Hgb 31.2 pg (27.0-32.0); Mean Corpuscular Volume 94.7 fL (80-94); Mean Platelet Vol. 9.2 fl (6.2-12.0); POSITIVE COUNT YES; POSITIVE MORPHOLOGY YES; Platelet Count 383 K/mm3 (150-450); RBC Distribution Width CV 12.7 % (11.6-14.6); RBC Distribution Width SD 44.2 fl (35.1-43.9); Red Blood Count 3.37 M/mm3 (4.6-6.2); White Blood Count 10.2 K/mm3 (4.4-11.0)
[2021-08-31 06:25] LABS: Differential Indicated MANUAL DIFF
[2021-08-31 06:37] VITALS: BP 109/62; PULSE 93; RESP 18; TEMP 37.2; O2SAT 93
[2021-08-31 06:38] LABS: Total Cells Counted 100 (MANUAL DIFF)
[2021-08-31 06:40] LABS: Eosinophil 3 % (0-5); Lymphocyte 14 % (19-41); Metamyelocyte 1 % (0-1); Monocyte 4 % (0-10); Myelocyte 3 % (0-0); Neutrophil-Segmented 75 % (47-70)
[2021-08-31 06:41] LABS: Neutrophil # 7.62 X10^3/uL (2.7-7.7); Platelet Estimate ADEQUATE (ADEQ); Red Cell Morphology NORM C+C NORMAL (NORM C&C)
[2021-08-31 06:42] LABS: Absolute Lymphocyte Count 1.42 X10^3/uL (0.83-4.51); Absolute Neutrophil Count 7.6 X10^3/uL (2.0-7.7); Lymphocyte # 1.42 X10^3/ul (0.83-4.51)
[2021-08-31 06:45] LABS: Anion Gap 4 (5-15); BUN 20 mg/dL (7-18); BUN/Creat Ratio 28.7 RATIO (10-20); Calcium,Total 9.2 mg/dL (8.5-10.1); Chloride 102 mmol/L (98-107); EST Glomerular Filtration Rate 126 mL/min (>60); Est Glom Filt Rate - Afr Amer 152 mL/min (>60); Estimated Creatinine Clearance 129.98 ml/min; Glucose 161 mg/dL (74-106); Potassium 4.6 mmol/L (3.5-5.1); Sodium Level 136 mmol/L (136-145)
[2021-08-31 07:43] VITALS: BP 152/49; PULSE 98; RESP 18; TEMP 36.7; O2SAT 93
[2021-08-31 09:26] VITALS: O2SAT 95
[2021-08-31 10:13] LABS: Pathologist Review Reviewed
[2021-08-31 10:16] LABS: Pathologist Review Reviewed
[2021-08-31] MEDS: Gabapentin 300 MG Capsule PO ×3 (11:15→17:21)
[2021-08-31] MEDS: Acetaminophen 500 MG Tablet PO ×3 (11:15→17:21)
[2021-08-31] MEDS: Furosemide 40 MG Tablet PO (11:15)
[2021-08-31] MEDS: Lisinopril 40 MG Tablet PO (11:15)
[2021-08-31] MEDS: amLODIPine 5 MG Tablet PO (11:16)
[2021-08-31] MEDS: Enoxaparin 40 MG/0.4 ML Syringe SC (11:16)
[2021-08-31] MEDS: Insulin Lispro 100 UNIT/ML INSULN.PEN SC ×2 (11:16→16:22)
[2021-08-31] MEDS: Insulin U-500 UNITS/ML PEN 120 UNITS SC (11:17)
[2021-08-31 11:30] LABS: Bedside Glucose 168 mg/dL (74-106)
--- NOTE | 2021-08-31 13:56 | PN.HOSP_ITS ---
Documented by User: Jolene Marr NP, TERRITORY ACCOUNT REPRESENTATIVE-C 08/31/21 14:00 Subjective Subjective Patient seen and examined. Undergoing dressing change by wound RN. He denies new symptoms or complaints. Discussed with general surgery who recommended transfer to tertiary facility for colorectal surgery consult for diverting colostomy. Patient amenable. Objective Data Objective Data Vital Signs: Vital Signs Temp Pulse Resp BP Pulse Ox 98.1 F 98 18 152/49 H 95 08/31/21 07:43 08/31/21 07:43 08/31/21 07:43 08/31/21 07:43 08/31/21 09:26 Oxygen Flow Rate (L/min) 2 Oxygen Delivery Method Room Air Weight: 489 lb 6.819 oz Body Mass Index (BMI) 63.7 Intake & Output: Intake and Output for Last 24 Hours 08/29/21 08/30/21 08/31/21 23:59 23:59 23:59 Intake Total 1050 / 1050 350 / 350 100 / 100 Output Total 850 / 850 3150 / 3150 2024 / 2024 Balance 200 / 200 -2800 / -2800 -1925 / -1925 Lab / Micro Data Result Diagrams: 08/31/21 06:10 08/31/21 06:10 Labs: Laboratory Results - last 24 hr 08/29/21 15:20: Diff Path Review Reviewed 08/30/21 05:55: Diff Path Review Reviewed 08/30/21 16:11: POC Glucose 184 H 08/30/21 22:23: POC Glucose 155 H 08/31/21 06:10: WBC 10.2, RBC 3.37 L, Hgb 10.5 L, Hct 31.9 L, MCV 94.7 H, MCH 31.2, MCHC 32.9, RDW Std Deviation 44.2 H, RDW Coeff of Fei 12.7, Plt Count 383, MPV 9.2, Neut % (Auto) Not Reportable, Absolute Neuts (auto) 7.6, Absolute Lymphs (auto) 1.42, Total Counted 100, Neutrophils % (Manual) 75 H, Lymphocytes % (Manual) 14 L, Monocytes % (Manual) 4, Eosinophils % (Manual) 3, Metamyelocytes % 1, Myelocytes % 3 H, Diff Path Review May foll, Platelet Estimate ADEQUATE, RBC Morphology NORM C+C 08/31/21 06:10: Sodium 136, Potassium 4.6, Chloride 102, Carbon Dioxide 30.0, Anion Gap 4 L, BUN 20 H, Creatinine 0.70, Estim Creat Clear Calc 129.98, Est GFR (MDRD) Af Amer 152, Est GFR (MDRD) Non-Af 126, BUN/Creatinine Ratio 28.7 H, Gl ucose 161 H, Calcium 9.2 08/31/21 11:12: POC Glucose 168 H Micro: Microbiology 08/29/21 17:05 Urine, Clean Catch Urine Culture - Final GNR lactose learning specialist Physical Exam Const alert, oriented x3 and no apparent distress Orientation / Consciousness: awake, oriented to person, oriented to place and oriented to time Nutritional Appearance: morbidly obese HEENT normocephalic and moist oral mucous membranes Eyes PERRL, EOMs intact bilaterally and conjunctivae normal Neck no lymphadenopathy Resp normal respiratory effort and clear to auscultation bilaterally Auscultation: diminished lung sounds Cardio regular rate, regular rhythm and no murmurs Peripheral Pulses: pulses 2+ throughout GI normal to inspection, nondistended, normoactive bowel sounds, non-tender and non-distended Extremity normal to inspection Extremity Narrative: Paraplegia Skin no rashes or lesions noted Skin Narrative: Extensive necrotic sacral pressure sores extending to bilateral buttocks tox and left ischial area. Foul-smelling, necrotic appearing. Lesions: no lesions Rashes: no rashes Trauma: no lacerations or abrasions Neuro CN's II-XII intact bilaterally, no focal motor deficits, no sensory deficits noted and deep tendon reflexes 2+ bilaterally Psych mental status grossly normal and affect normal Assessment & Plan Assessment/Plan (1) Sacral wound: QUALIFIERS: Encounter type: subsequent encounter Qualified Code(s): S31.000D - Unspecified open wound of lower back and pelvis without penetration into retroperitoneum, subsequent encounter PLAN: 1. Worsening sacral decubitus ulcer with infection and necrosis- prior wound cultures 08/19/2021 grew E. coli, staph and Pseudomonas. IV Zosyn. Wound RN consult. Plastics consulted. Plan for transfer to [facility] for wound debridement and evaluation for diverting colostomy placement. 2. Type 2 diabetes [id number] with sliding scale insulin. Continue home insulin regimen. Hemoglobin A1c 8%. 3. Hypertension-stable, continue amlodipine, lisinopril. 4. Hyperlipidemia-continue statin 5. Paraplegia-complicates care/recovery. 6. Morbid obesity-encouraged diet and lifestyle modifications. 7. Chronic lower extremity swelling-patient reports recently worsened. Initiated on oral Lasix. Christian wraps. DVT prophylaxis-Lovenox subcu This patient was seen by FRANK Chavis under the supervision of Dr. Miller. Time spent examining patient, reviewing data and subsequent management of care: 12 Minutes Documented by User: Dr. Richard Miller MD 08/31/21 15:29 Objective Data Lab / Micro Data Result Diagrams: 08/31/21 06:10 08/31/21 06:10
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
[2021-08-31 14:24] VITALS: BP 102/57; PULSE 96; RESP 18; TEMP 37.1; O2SAT 93
--- NOTE | 2021-08-31 14:48 | CASEMGMT ---
Social Work Note SW received call from [facility] OSMAR [place] ([phone]) stating pt is part of [place] [facility] Program. Pt has been approved for 42 hours a week for aide services. Pt currently receives 18 hours a week of aide services through [facility] and has an Emergency Response Button. [facility]AR informed [place] that the plan is for pt to be transferred out to [facility]. [place] asked to be called when pt discharges. EDGAR updated that pt has been accepted to [facility] pending bed availability. Feli Arce KNOCKDOWN MAN, FOUNTAIN SERVER
--- NOTE | 2021-08-31 15:01 | CHAPLAIN ---
Type of Pastoral Visit ___ Initial Visit _x__ Follow-up Visit ___ On-call Visit ___ General Patient Visit ___ Spiritual Assessment ___ Family Conference ___ Bereavement ___ Rapid Response ___ Code Blue ___ Other (describe below) Pastoral Care Referral From _x__ Patient ___ Family ___ Nurse ___ Physician ___ Whiting Can Worker ___ Gas Collection System Operator ___ Other (describe below) Sacrament/Intervention _x__ Active listening ___ Anointing ___ Yazidism ___ Bereavement ___ Communion ___ Freya exploration ___ _x__ Life review _x__ Prayer ___ Reconciliation ___ Sacrament of Sick _x__ Supportive presence ___ Wedding ___ Other (describe below) Pastoral Comments follow up visit as patient welcomed; pt talks about the change in plans and pending transfer to another hospital; pt speaks of his home and family situation; pt talks about life and welcomes the time for someone to listen; prayer welcomed
--- NOTE | 2021-08-31 15:43 | CASEMGMT ---
Social Work Note Pt has been accepted to [facility] and will discharge there today. SW placed a call to pt's OSMAR Bartholomew at [facility] and updated her that pt will discharge to [facility] today. Feli Arce QUALITY MANAGEMENT NURSE, PIT INSPECTOR
[2021-08-31] MEDS: Insulin U-500 UNITS/ML PEN 175 UNITS SC (16:23)
[2021-08-31 16:31] LABS: Bedside Glucose 174 mg/dL (74-106)
[2021-09-01 14:09] LABS: Pathologist Review Reviewed
== END 2021-08-31 17:35 | disposition short-term general hospital (02) | DRG 380 ==
LOC: ED 18:01 → MS3 19:09
PROVIDERS: Anesthesiology; Nurse Practitioner Family; Admitting Provider Internal Medicine; Emergency Provider Emergency Medicine; PCP Internal Medicine; Visit Provider Family Medicine
DX: L89.154 Pressure ulcer of sacral region, stage 4 (principal); G82.20 Paraplegia, unspecified; L03.312 Cellulitis of back [any part except buttock and flank]; Z68.44 Body mass index [BMI] 60.0-69.9, adult; E11.42 Type 2 diabetes mellitus with diabetic polyneuropathy; B95.8 Unspecified staphylococcus as the cause of diseases classified elsewhere; L89.314 Pressure ulcer of right buttock, stage 4; L89.324 Pressure ulcer of left buttock, stage 4; Z79.4 Long term (current) use of insulin; E66.01 Morbid (severe) obesity due to excess calories; B96.5 Pseudomonas (aeruginosa) (mallei) (pseudomallei) as the cause of diseases classified elsewhere; B96.20 Unspecified Escherichia coli [E. coli] as the cause of diseases classified elsewhere; I10 Essential (primary) hypertension; E78.2 Mixed hyperlipidemia; D64.9 Anemia, unspecified; M81.0 Age-related osteoporosis without current pathological fracture; F32.A Depression, unspecified; R60.0 Localized edema; Z74.01 Bed confinement status; Z79.899 Other long term (current) drug therapy; Z87.891 Personal history of nicotine dependence
CPT/HCPCS: 36415; 51702; 71045; 72193; 80048; 80053; 81001; 82962; 83036; 83540; 83550; 83605; 85025; 85610; 85730; 87040; 87070; 87075; 87077; 87086; 87088; 87186; 87205; 87426; 93005; 94002; 94003; 94660; 97162; 97166; 97802; 99251; 99285; J7030; Q9967; A4216; G0463; J1940

== ENCOUNTER → 2021-12-12 | Outpatient (REF) | payer MEDICAID, SELFPAY ==
[2021-12-12 08:44] LABS: Hematocrit 33.4 % (40-54); Hemoglobin 10.4 g/dL (13.0-16.5); Mean Corp Hgb Conc 31.1 g/dL (32-36); Mean Corpuscular Hgb 26.9 pg (27.0-32.0); Mean Corpuscular Volume 86.3 fL (80-94); Mean Platelet Vol. 9.6 fl (6.2-12.0); Platelet Count 382 K/mm3 (150-450); RBC Distribution Width CV 15.4 % (11.6-14.6); RBC Distribution Width SD 48.7 fl (35.1-43.9); Red Blood Count 3.87 M/mm3 (4.6-6.2); White Blood Count 8.3 K/mm3 (4.4-11.0)
[2021-12-12 09:04] LABS: ALB/GLOB Ratio 0.6 RATIO (0.9-2.4); AST(SGOT) 24 U/L (15-37); Alanine Aminotransfer ALT/SGPT 29 U/L (16-61); Albumin, Serum 2.7 g/dL (3.2-5.0); Alkaline Phosphatase 87 U/L (45-117); Anion Gap 9 (5-15); BUN 15 mg/dL (7-18); BUN/Creat Ratio 24.2 RATIO (10-20); Calcium,Total 9.7 mg/dL (8.5-10.1); Chloride 98 mmol/L (98-107); Cholesterol 103 mg/dL (200); Creatinine, Serum 0.62 mg/dL (0.70-1.30); EST Glomerular Filtration Rate 144 mL/min (>60); Est Glom Filt Rate - Afr Amer 174 mL/min (>60); Globulin 4.7 g/dL (2.2-4.2); Glucose 194 mg/dL (74-106); High Density Lipoprotein 33 mg/dL; Potassium 3.4 mmol/L (3.5-5.1); Protein, Total 7.4 g/dL (6.4-8.2); Sodium Level 134 mmol/L (136-145); Triglycerides 173 mg/dL; Very Low Density Lipoprotein 35 mg/dL (5-40)
[2021-12-12 09:25] LABS: Hemoglobin A1c 6.7 % (3.8-5.6)
== END | disposition home or self-care (01) ==
LOC: OLS.SW500 05:00
PROVIDERS: PCP Internal Medicine; Visit Provider Family Medicine
DX: E78.5 Hyperlipidemia, unspecified (principal); E11.9 Type 2 diabetes mellitus without complications; Z13.228 Encounter for screening for other metabolic disorders
CPT/HCPCS: 36415; 80053; 80061; 83036; 85027

== ENCOUNTER → 2021-12-20 | Outpatient (REF) | payer MEDICAID, SELFPAY ==
[2021-12-20 08:19] LABS: Hematocrit 32.5 % (40-54); Hemoglobin 10.3 g/dL (13.0-16.5); Mean Corp Hgb Conc 31.7 g/dL (32-36); Mean Corpuscular Hgb 26.8 pg (27.0-32.0); Mean Corpuscular Volume 84.4 fL (80-94); Mean Platelet Vol. 9.5 fl (6.2-12.0); Platelet Count 406 K/mm3 (150-450); RBC Distribution Width CV 14.8 % (11.6-14.6); RBC Distribution Width SD 45.6 fl (35.1-43.9); Red Blood Count 3.85 M/mm3 (4.6-6.2); White Blood Count 8.3 K/mm3 (4.4-11.0)
[2021-12-20 08:34] LABS: ALB/GLOB Ratio 0.6 RATIO (0.9-2.4); AST(SGOT) 26 U/L (15-37); Alanine Aminotransfer ALT/SGPT 44 U/L (16-61); Albumin, Serum 2.7 g/dL (3.2-5.0); Alkaline Phosphatase 91 U/L (45-117); Anion Gap 7 (5-15); BUN 15 mg/dL (7-18); BUN/Creat Ratio 24.6 RATIO (10-20); Calcium,Total 9.7 mg/dL (8.5-10.1); Chloride 98 mmol/L (98-107); Creatinine, Serum 0.61 mg/dL (0.70-1.30); EST Glomerular Filtration Rate 147 mL/min (>60); Est Glom Filt Rate - Afr Amer 177 mL/min (>60); Globulin 4.7 g/dL (2.2-4.2); Glucose 144 mg/dL (74-106); Potassium 3.3 mmol/L (3.5-5.1); Protein, Total 7.4 g/dL (6.4-8.2); Sodium Level 134 mmol/L (136-145)
== END | disposition home or self-care (01) ==
LOC: OLS.SW500 04:00
PROVIDERS: PCP Internal Medicine; Visit Provider Family Medicine
DX: A41.9 Sepsis, unspecified organism (principal); M46.27 Osteomyelitis of vertebra, lumbosacral region
CPT/HCPCS: 36415; 80053; 85027

== ENCOUNTER → 2021-12-27 | Outpatient (REF) | payer MEDICAID, SELFPAY ==
[2021-12-27 08:58] LABS: Hemoglobin 10.4 g/dL (13.0-16.5); Mean Corp Hgb Conc 30.6 g/dL (32-36); Mean Corpuscular Hgb 26.2 pg (27.0-32.0); Mean Corpuscular Volume 85.6 fL (80-94); Mean Platelet Vol. 9.7 fl (6.2-12.0); Platelet Count 432 K/mm3 (150-450); RBC Distribution Width CV 14.9 % (11.6-14.6); RBC Distribution Width SD 46.7 fl (35.1-43.9); Red Blood Count 3.97 M/mm3 (4.6-6.2); White Blood Count 8.2 K/mm3 (4.4-11.0)
[2021-12-27 09:20] LABS: ALB/GLOB Ratio 0.6 RATIO (0.9-2.4); AST(SGOT) 23 U/L (15-37); Alanine Aminotransfer ALT/SGPT 49 U/L (16-61); Albumin, Serum 2.8 g/dL (3.2-5.0); Alkaline Phosphatase 102 U/L (45-117); Anion Gap 9 (5-15); BUN 17 mg/dL (7-18); BUN/Creat Ratio 27.9 RATIO (10-20); Calcium,Total 9.9 mg/dL (8.5-10.1); Chloride 101 mmol/L (98-107); Creatinine, Serum 0.61 mg/dL (0.70-1.30); EST Glomerular Filtration Rate 147 mL/min (>60); Est Glom Filt Rate - Afr Amer 177 mL/min (>60); Globulin 4.7 g/dL (2.2-4.2); Glucose 174 mg/dL (74-106); Potassium 3.8 mmol/L (3.5-5.1); Protein, Total 7.5 g/dL (6.4-8.2); Sodium Level 138 mmol/L (136-145)
== END | disposition home or self-care (01) ==
LOC: OLS.SW500 04:00
PROVIDERS: PCP Internal Medicine; Visit Provider Family Medicine
DX: A41.9 Sepsis, unspecified organism (principal); E11.9 Type 2 diabetes mellitus without complications
CPT/HCPCS: 36415; 80053; 85027

== ENCOUNTER → 2022-01-03 | Outpatient (REF) | payer MEDICAID, SELFPAY ==
[2022-01-03 09:01] LABS: Hematocrit 35.8 % (40-54); Hemoglobin 11.1 g/dL (13.0-16.5); Mean Corpuscular Hgb 26.7 pg (27.0-32.0); Mean Corpuscular Volume 86.1 fL (80-94); Mean Platelet Vol. 9.5 fl (6.2-12.0); Platelet Count 411 K/mm3 (150-450); RBC Distribution Width CV 14.9 % (11.6-14.6); RBC Distribution Width SD 46.8 fl (35.1-43.9); Red Blood Count 4.16 M/mm3 (4.6-6.2)
[2022-01-03 09:38] LABS: ALB/GLOB Ratio 0.6 RATIO (0.9-2.4); AST(SGOT) 20 U/L (15-37); Alanine Aminotransfer ALT/SGPT 41 U/L (16-61); Albumin, Serum 2.7 g/dL (3.2-5.0); Alkaline Phosphatase 99 U/L (45-117); Anion Gap 10 (5-15); BUN 12 mg/dL (7-18); BUN/Creat Ratio 17.8 RATIO (10-20); Calcium,Total 9.6 mg/dL (8.5-10.1); Chloride 96 mmol/L (98-107); Creatinine, Serum 0.67 mg/dL (0.70-1.30); EST Glomerular Filtration Rate 131 mL/min (>60); Est Glom Filt Rate - Afr Amer 158 mL/min (>60); Globulin 4.6 g/dL (2.2-4.2); Glucose 225 mg/dL (74-106); Potassium 2.9 mmol/L (3.5-5.1); Protein, Total 7.3 g/dL (6.4-8.2); Sodium Level 135 mmol/L (136-145)
== END | disposition home or self-care (01) ==
LOC: OLS.SW500 04:00
PROVIDERS: PCP Internal Medicine; Referring Provider Family Medicine; Visit Provider Family Medicine
DX: I10 Essential (primary) hypertension (principal); D64.9 Anemia, unspecified; E11.9 Type 2 diabetes mellitus without complications; Z79.899 Other long term (current) drug therapy
CPT/HCPCS: 36415; 80053; 85027

== ENCOUNTER → 2022-01-10 | Outpatient (REF) | payer MEDICAID, SELFPAY ==
[2022-01-10 09:05] LABS: Hematocrit 32.9 % (40-54); Hemoglobin 10.3 g/dL (13.0-16.5); Mean Corp Hgb Conc 31.3 g/dL (32-36); Mean Corpuscular Hgb 26.8 pg (27.0-32.0); Mean Corpuscular Volume 85.7 fL (80-94); Mean Platelet Vol. 9.5 fl (6.2-12.0); Platelet Count 382 K/mm3 (150-450); RBC Distribution Width SD 46.5 fl (35.1-43.9); Red Blood Count 3.84 M/mm3 (4.6-6.2); White Blood Count 5.9 K/mm3 (4.4-11.0)
[2022-01-10 09:25] LABS: ALB/GLOB Ratio 0.6 RATIO (0.9-2.4); AST(SGOT) 20 U/L (15-37); Alanine Aminotransfer ALT/SGPT 31 U/L (16-61); Albumin, Serum 2.7 g/dL (3.2-5.0); Alkaline Phosphatase 92 U/L (45-117); Anion Gap 8 (5-15); BUN 14 mg/dL (7-18); BUN/Creat Ratio 22.7 RATIO (10-20); Calcium,Total 9.4 mg/dL (8.5-10.1); Chloride 100 mmol/L (98-107); Creatinine, Serum 0.62 mg/dL (0.70-1.30); EST Glomerular Filtration Rate 144 mL/min (>60); Est Glom Filt Rate - Afr Amer 175 mL/min (>60); Globulin 4.4 g/dL (2.2-4.2); Glucose 163 mg/dL (74-106); Potassium 3.8 mmol/L (3.5-5.1); Protein, Total 7.1 g/dL (6.4-8.2); Sodium Level 137 mmol/L (136-145)
== END | disposition home or self-care (01) ==
LOC: OLS.SW500 05:00
PROVIDERS: PCP Internal Medicine; Visit Provider Family Medicine
DX: E11.9 Type 2 diabetes mellitus without complications (principal); I10 Essential (primary) hypertension
CPT/HCPCS: 36415; 80053; 85027

== ENCOUNTER → 2022-01-17 | Outpatient (REF) | payer MEDICAID, SELFPAY ==
[2022-01-17 09:33] LABS: Hematocrit 34.3 % (40-54); Hemoglobin 10.6 g/dL (13.0-16.5); Mean Corp Hgb Conc 30.9 g/dL (32-36); Mean Corpuscular Hgb 26.7 pg (27.0-32.0); Mean Corpuscular Volume 86.4 fL (80-94); Mean Platelet Vol. 9.6 fl (6.2-12.0); Platelet Count 342 K/mm3 (150-450); RBC Distribution Width CV 15.4 % (11.6-14.6); RBC Distribution Width SD 48.1 fl (35.1-43.9); Red Blood Count 3.97 M/mm3 (4.6-6.2); White Blood Count 5.2 K/mm3 (4.4-11.0)
[2022-01-17 10:02] LABS: ALB/GLOB Ratio 0.7 RATIO (0.9-2.4); AST(SGOT) 23 U/L (15-37); Alanine Aminotransfer ALT/SGPT 32 U/L (16-61); Albumin, Serum 2.9 g/dL (3.2-5.0); Alkaline Phosphatase 90 U/L (45-117); Anion Gap 8 (5-15); BUN 13 mg/dL (7-18); BUN/Creat Ratio 21.7 RATIO (10-20); Calcium,Total 9.7 mg/dL (8.5-10.1); Chloride 100 mmol/L (98-107); EST Glomerular Filtration Rate 150 mL/min (>60); Est Glom Filt Rate - Afr Amer 181 mL/min (>60); Globulin 4.3 g/dL (2.2-4.2); Glucose 180 mg/dL (74-106); Potassium 3.5 mmol/L (3.5-5.1); Protein, Total 7.2 g/dL (6.4-8.2); Sodium Level 136 mmol/L (136-145)
== END | disposition home or self-care (01) ==
LOC: OLS.SW500 04:00
PROVIDERS: PCP Internal Medicine; Visit Provider Family Medicine
DX: E11.9 Type 2 diabetes mellitus without complications (principal)
CPT/HCPCS: 36415; 80053; 85027

== ENCOUNTER → 2022-01-24 | Outpatient (REF) | payer MEDICAID, SELFPAY ==
[2022-01-24 08:21] LABS: Hematocrit 34.3 % (40-54); Hemoglobin 10.9 g/dL (13.0-16.5); Mean Corp Hgb Conc 31.8 g/dL (32-36); Mean Corpuscular Hgb 26.9 pg (27.0-32.0); Mean Corpuscular Volume 84.7 fL (80-94); Mean Platelet Vol. 9.7 fl (6.2-12.0); Platelet Count 327 K/mm3 (150-450); RBC Distribution Width CV 15.6 % (11.6-14.6); RBC Distribution Width SD 47.1 fl (35.1-43.9); Red Blood Count 4.05 M/mm3 (4.6-6.2); White Blood Count 5.7 K/mm3 (4.4-11.0)
[2022-01-24 08:41] LABS: ALB/GLOB Ratio 0.6 RATIO (0.9-2.4); AST(SGOT) 18 U/L (15-37); Alanine Aminotransfer ALT/SGPT 35 U/L (16-61); Albumin, Serum 2.8 g/dL (3.2-5.0); Alkaline Phosphatase 95 U/L (45-117); Anion Gap 7 (5-15); BUN 13 mg/dL (7-18); BUN/Creat Ratio 18.7 RATIO (10-20); Calcium,Total 9.5 mg/dL (8.5-10.1); Chloride 99 mmol/L (98-107); EST Glomerular Filtration Rate 126 mL/min (>60); Est Glom Filt Rate - Afr Amer 153 mL/min (>60); Globulin 4.6 g/dL (2.2-4.2); Glucose 182 mg/dL (74-106); Potassium 3.5 mmol/L (3.5-5.1); Protein, Total 7.4 g/dL (6.4-8.2); Sodium Level 135 mmol/L (136-145)
== END | disposition home or self-care (01) ==
LOC: OLS.SW500 05:00
PROVIDERS: PCP Internal Medicine; Visit Provider Family Medicine
DX: E11.9 Type 2 diabetes mellitus without complications (principal)
CPT/HCPCS: 36415; 80053; 85027

== ENCOUNTER → 2022-01-31 | Outpatient (REF) | payer MEDICAID, SELFPAY ==
[2022-01-31 07:40] LABS: Hematocrit 34.8 % (40-54); Hemoglobin 10.8 g/dL (13.0-16.5); Mean Corpuscular Hgb 26.9 pg (27.0-32.0); Mean Corpuscular Volume 86.8 fL (80-94); Mean Platelet Vol. 9.8 fl (6.2-12.0); Platelet Count 292 K/mm3 (150-450); RBC Distribution Width CV 15.7 % (11.6-14.6); RBC Distribution Width SD 48.5 fl (35.1-43.9); Red Blood Count 4.01 M/mm3 (4.6-6.2); White Blood Count 6.9 K/mm3 (4.4-11.0)
[2022-01-31 08:36] LABS: ALB/GLOB Ratio 0.7 RATIO (0.9-2.4); AST(SGOT) 18 U/L (15-37); Alanine Aminotransfer ALT/SGPT 32 U/L (16-61); Albumin, Serum 2.9 g/dL (3.2-5.0); Alkaline Phosphatase 86 U/L (45-117); Anion Gap 7 (5-15); BUN 11 mg/dL (7-18); BUN/Creat Ratio 20.1 RATIO (10-20); Calcium,Total 9.1 mg/dL (8.5-10.1); Chloride 101 mmol/L (98-107); Creatinine, Serum 0.55 mg/dL (0.70-1.30); EST Glomerular Filtration Rate 166 mL/min (>60); Est Glom Filt Rate - Afr Amer 201 mL/min (>60); Globulin 4.2 g/dL (2.2-4.2); Glucose 109 mg/dL (74-106); Potassium 3.5 mmol/L (3.5-5.1); Protein, Total 7.1 g/dL (6.4-8.2); Sodium Level 136 mmol/L (136-145)
== END | disposition home or self-care (01) ==
LOC: OLS.SW500 04:00
PROVIDERS: PCP Internal Medicine; Visit Provider Family Medicine
DX: Z79.899 Other long term (current) drug therapy (principal)
CPT/HCPCS: 36415; 80053; 85027

== ENCOUNTER → 2022-02-07 | Outpatient (REF) | payer MEDICAID, SELFPAY ==
[2022-02-07 08:21] LABS: Hematocrit 34.4 % (40-54); Hemoglobin 10.9 g/dL (13.0-16.5); Mean Corp Hgb Conc 31.7 g/dL (32-36); Mean Corpuscular Hgb 27.1 pg (27.0-32.0); Mean Corpuscular Volume 85.6 fL (80-94); Mean Platelet Vol. 10.1 fl (6.2-12.0); Platelet Count 302 K/mm3 (150-450); RBC Distribution Width CV 15.4 % (11.6-14.6); RBC Distribution Width SD 48.2 fl (35.1-43.9); Red Blood Count 4.02 M/mm3 (4.6-6.2); White Blood Count 4.3 K/mm3 (4.4-11.0)
[2022-02-07 08:37] LABS: ALB/GLOB Ratio 0.7 RATIO (0.9-2.4); AST(SGOT) 21 U/L (15-37); Alanine Aminotransfer ALT/SGPT 29 U/L (16-61); Albumin, Serum 2.8 g/dL (3.2-5.0); Alkaline Phosphatase 88 U/L (45-117); Anion Gap 8 (5-15); BUN 10 mg/dL (7-18); BUN/Creat Ratio 14.3 RATIO (10-20); Calcium,Total 9.2 mg/dL (8.5-10.1); Chloride 101 mmol/L (98-107); EST Glomerular Filtration Rate 125 mL/min (>60); Est Glom Filt Rate - Afr Amer 152 mL/min (>60); Globulin 4.1 g/dL (2.2-4.2); Glucose 230 mg/dL (74-106); Potassium 3.8 mmol/L (3.5-5.1); Protein, Total 6.9 g/dL (6.4-8.2); Sodium Level 138 mmol/L (136-145)
== END | disposition home or self-care (01) ==
LOC: OLS.SW500 05:00
PROVIDERS: PCP Internal Medicine; Visit Provider Family Medicine
DX: E11.9 Type 2 diabetes mellitus without complications (principal); I10 Essential (primary) hypertension
CPT/HCPCS: 36415; 80053; 85027

== ENCOUNTER → 2022-02-14 | Outpatient (REF) | payer MEDICAID, SELFPAY ==
[2022-02-14 08:18] LABS: Hematocrit 34.5 % (40-54); Hemoglobin 10.8 g/dL (13.0-16.5); Mean Corp Hgb Conc 31.3 g/dL (32-36); Mean Corpuscular Hgb 26.9 pg (27.0-32.0); Mean Platelet Vol. 10.1 fl (6.2-12.0); Platelet Count 281 K/mm3 (150-450); RBC Distribution Width CV 15.9 % (11.6-14.6); RBC Distribution Width SD 49.4 fl (35.1-43.9); Red Blood Count 4.01 M/mm3 (4.6-6.2); White Blood Count 6.2 K/mm3 (4.4-11.0)
[2022-02-14 08:47] LABS: ALB/GLOB Ratio 0.7 RATIO (0.9-2.4); AST(SGOT) 20 U/L (15-37); Alanine Aminotransfer ALT/SGPT 29 U/L (16-61); Albumin, Serum 2.9 g/dL (3.2-5.0); Alkaline Phosphatase 90 U/L (45-117); Anion Gap 9 (5-15); BUN 11 mg/dL (7-18); BUN/Creat Ratio 15.5 RATIO (10-20); Calcium,Total 9.1 mg/dL (8.5-10.1); Chloride 101 mmol/L (98-107); Creatinine, Serum 0.71 mg/dL (0.70-1.30); EST Glomerular Filtration Rate 123 mL/min (>60); Est Glom Filt Rate - Afr Amer 149 mL/min (>60); Globulin 4.3 g/dL (2.2-4.2); Glucose 185 mg/dL (74-106); Potassium 3.8 mmol/L (3.5-5.1); Protein, Total 7.2 g/dL (6.4-8.2); Sodium Level 138 mmol/L (136-145)
== END | disposition home or self-care (01) ==
LOC: OLS.SW500 05:00
PROVIDERS: PCP Internal Medicine; Visit Provider Family Medicine
DX: I10 Essential (primary) hypertension (principal); E11.9 Type 2 diabetes mellitus without complications
CPT/HCPCS: 36415; 80053; 85027

== ENCOUNTER → 2022-02-21 | Outpatient (REF) | payer MEDICAID, SELFPAY ==
[2022-02-21 09:27] LABS: Hematocrit 34.3 % (40-54); Hemoglobin 10.9 g/dL (13.0-16.5); Mean Corp Hgb Conc 31.8 g/dL (32-36); Mean Corpuscular Hgb 27.5 pg (27.0-32.0); Mean Corpuscular Volume 86.6 fL (80-94); Mean Platelet Vol. 9.9 fl (6.2-12.0); Platelet Count 308 K/mm3 (150-450); RBC Distribution Width CV 15.7 % (11.6-14.6); RBC Distribution Width SD 49.3 fl (35.1-43.9); Red Blood Count 3.96 M/mm3 (4.6-6.2); White Blood Count 5.8 K/mm3 (4.4-11.0)
[2022-02-21 09:39] LABS: ALB/GLOB Ratio 0.6 RATIO (0.9-2.4); AST(SGOT) 18 U/L (15-37); Alanine Aminotransfer ALT/SGPT 33 U/L (16-61); Albumin, Serum 2.8 g/dL (3.2-5.0); Alkaline Phosphatase 88 U/L (45-117); Anion Gap 6 (5-15); BUN 15 mg/dL (7-18); BUN/Creat Ratio 22.3 RATIO (10-20); Calcium,Total 9.6 mg/dL (8.5-10.1); Chloride 103 mmol/L (98-107); Creatinine, Serum 0.67 mg/dL (0.70-1.30); EST Glomerular Filtration Rate 131 mL/min (>60); Est Glom Filt Rate - Afr Amer 158 mL/min (>60); Globulin 4.4 g/dL (2.2-4.2); Glucose 217 mg/dL (74-106); Protein, Total 7.2 g/dL (6.4-8.2); Sodium Level 137 mmol/L (136-145)
== END | disposition home or self-care (01) ==
LOC: OLS.SW500 05:00
PROVIDERS: PCP Internal Medicine; Visit Provider Family Medicine
DX: I10 Essential (primary) hypertension (principal)
CPT/HCPCS: 36415; 80053; 85027

== ENCOUNTER → 2022-03-03 | Outpatient (REF) | payer MEDICAID, SELFPAY ==
[2022-03-03 08:06] LABS: Mucous, Urine 0 SEEN /hpf (<or=2+)
[2022-03-03 08:21] LABS: Color, Urine Red (Yellow); Glucose, Dipstick Normal (Normal); Ketone-Dipstick Negative (Negative); Leukocyte Esterase-Dipstick 500 /ul (Negative); Nitrite-Dipstick Positive (Negative); Occult Blood-Urine 250 /ul (Negative); Protein-Dipstick 100 mg/dl (Negative); Urine Bilirubin Dipstick Negative (Negative); Urine Clarity Sl. Cloudy (Clear); Urine Urobilinogen Normal (Normal)
[2022-03-03 08:39] LABS: Bacteria 2+ /hpf (None Seen); Red Blood Cells-Urine 25-50 SEEN /hpf (0-5); Squamous Epithelial Cells - UA 0-5 SEEN /hpf (0-5); White Blood Cells 25-50 SEEN /hpf (0-5)
== END | disposition home or self-care (01) ==
LOC: OLS.SW500 08:06
PROVIDERS: PCP Internal Medicine; Visit Provider Family Medicine
DX: M54.50 Low back pain, unspecified (principal)
CPT/HCPCS: 81001; 87077; 87086; 87088; 87186

== ENCOUNTER 2022-03-11 16:20 | Inpatient (IN) | payer MEDICAID, SELFPAY ==
[2022-03-11] VITALS (15 sets, daily range): BP systolic 101–200; BP diastolic 49–164; PULSE 94–130; RESP 0–32; TEMP 38.7–40.4; O2SAT 94–98; BMI 58.3; BMI 57.1
--- NOTE | 2022-03-11 16:32 | EKG12_ITS ---
Test Reason : SOB Blood Pressure : / mmHG Vent. Rate : 124 BPM Atrial Rate : 124 BPM P-R Int : 166 ms QRS Dur : 080 ms QT Int : 294 ms P-R-T Axes : 038 012 033 degrees QTc Int : 422 ms Sinus tachycardia Low voltage QRS Nonspecific ST abnormality Abnormal ECG Confirmed by MARSHA EL, ELZBIETA ([id number]), marketing editor JAHAIRA RAJAN ([id number]) on 03/14/2022 12:56:42 PM Referred By: PINA Confirmed By:ELZBIETA LARSON MD
--- NOTE | 2022-03-11 16:34 | EDS_ITS ---
HPI History of Present Illness Chief Complaint: Shortness of Breath Detail of Chief Complaint: Shortness of breath, cough, hypoxia Informant: patient and EMS Onset/Context/Timing Onset: Days Context: gradual Timing: Continuous and - Quality: Positive for - (Pain in his paraplegic and bedridden.) Current Severity: Moderate Maximum Severity: Severe Worsened by: Nothing Relieved by: Nothing Associated Symptoms cough and fever Chest Pain: Positive for None Narrative Narrative: Patient is a 51-year-old morbidly obese gentleman who is paraplegic and bedridden. Review of prior records indicates that he has ischial sacral decubiti. He endorses positive cough and shortness of breath. He denies any other symptoms. He is encephalopathic. When asked the month his response was 2011. When he was told the years 2021 he stated no 2020. PE Risk Factors: Negative for Cancer, OCP + Smoking + > 35, Prior DVT or PE, Recent immobilization, Recent surgery or Recent travel Prior similar symptoms: No PFSH PFSH Medical History Acute respiratory failure, unspecified whether with hypoxia or hypercapnia Alcohol abuse Anemia Anxiety and depression Anxiety disorder Avelar's palsy Blister (nonthermal), right foot, initial encounter Chronic ulcer of right foot with fat layer exposed CPAP (continuous positive airway pressure) dependence Decubitus ulcer, buttock Depression Diabetes DVT (deep venous thrombosis) Edema of both lower extremities Essential (primary) hypertension Former smoker Headache Hemoglobin A1c 8.0% or greater History of foot ulcer History of stress test history of tooth removal Hyperlipidemia Incontinence 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 Insomnia Left shoulder pain 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 Morbid (severe) obesity due to excess calories Neuromuscular dysfunction of bladder, unspecified Neuropathic pain Obesities, morbid Obstructive sleep apnea On home oxygen therapy Osteoporosis Other seasonal allergic rhinitis Paraplegia Pressure sore of left ischium, unstageable Pressure ulcer Pressure ulcer of left buttock, unstageable Pressure ulcer of right buttock, unstageable Pressure ulcer of sacral region, unstageable Primary osteoarthritis, left shoulder Sacral wound Self-catheterizes urinary bladder Sepsis Skin necrosis Skin ulcer of left hip Skin ulcer of right hip Sleep apnea Stage II pressure ulcer Stage II pressure ulcer of buttock Type 2 diabetes mellitus with diabetic polyneuropathy Wound infection Home Medications male urinal #1 ea 08/23/18 [Rx Last Taken Unknown] wash basin #1 ea 08/23/18 [Rx Last Taken Unknown] gauze bandage 4 X 4 (Curad Gauze Pad) #2,000 ea 04/22/19 [Rx Last Taken Unknown] shower chair bariatric #1 ea 04/29/19 [Rx Last Taken Unknown] lancets 28 gauge (FreeStyle Lancets) #200 ea 07/04/19 [Rx Last Taken Unknown] hydrocortisone 2.5 % topical ointment 1 applic topical BID PRN rash #454 grams 07/01/20 [Rx Last Taken 08/18/21] OneTouch Verio Flex meter (blood-glucose meter) #1 ea 07/16/20 [Rx Last Taken Unknown] lancets 33 gauge (OneTouch Delica Lancets) #100 ea 07/16/20 [Rx Last Taken Unknown] Wood transfer board, 32 inches in length 10 inches wide 1/2 inch thick #1 ea 09/06/20 [Rx Last Taken Unknown] lancets 33 gauge (OneTouch Delica Plus Lancet) #100 ea 09/16/20 [Rx Last Taken Unknown] compr.stocking,thigh,reg,large #6 ea 11/11/20 [Rx Last Taken Unknown] compress.stocking,knee,reg,lrg #6 ea 11/12/20 [Rx Last Taken Unknown] cpap mask #1 ea 07/14/21 [Rx Last Taken Unknown] atorvastatin 20 mg tablet 20 mg PO QHS cholesterol lowering 08/29/21 [History Last Taken 08/28/21] hydrochlorothiazide 25 mg tablet 25 mg PO DAILY water pill, htn 08/29/21 [History Last Taken 08/29/21] doxazosin 1 mg tablet 1 mg PO QHS BPH #90 tabs 11/09/21 [Rx Last Taken Unknown] pen needle, diabetic 32 gauge x 5/32 (BD Ultra-Fine Jenny Pen Needle) #100 ea 12/02/21 [Rx Last Taken Unknown] OneTouch Verio test strips (blood sugar diagnostic) #100 ea 12/22/21 [Rx Last Taken Unknown] acetaminophen 325 mg capsule 650 mg PO Q4H PRN pain 02/28/22 [History Last Taken Unknown] acetaminophen 500 mg capsule 1,000 mg PO TID PRN pain 02/28/22 [History Last Taken Unknown] aluminum-magnesium hydroxide 200 mg-200 mg/5 mL oral suspension 30 ml PO Q4H PRN GI distress 02/28/22 [History Last Taken Unknown] amlodipine 10 mg tablet 10 mg PO DAILY 02/28/22 [History Last Taken Unknown] ascorbate calcium (vitamin C) 500 mg tablet 500 mg PO DAILY 02/28/22 [History Last Taken Unknown] bisacodyl 10 mg rectal suppository 10 mg PA DAILY PRN Constipation 02/28/22 [History Last Taken Unknown] dextrose 40 % oral gel (Glucose Gel) 10 g PO Q15M PRN 02/28/22 [History Last Taken Unknown] dulaglutide 4.5 mg/0.5 mL subcutaneous pen injector (Trulicity) 4.5 mg subcut .QTH blood sugar 02/28/22 [History Last Taken Unknown] enoxaparin 40 mg/0.4 mL subcutaneous syringe 40 mg subcut DAILY 02/28/22 [History Last Taken Unknown] famotidine 20 mg tablet 20 mg PO BID 02/28/22 [History Last Taken Unknown] fluticasone propionate 50 mcg/actuation nasal spray,suspension 2 spray intranasal BID 02/28/22 [History Last Taken Unknown] furosemide 40 mg tablet 40 mg PO BID 02/28/22 [History Last Taken Unknown] gabapentin 400 mg capsule 400 mg PO 4X/DAY 02/28/22 [History Last Taken Unknown] glucagon HCl 1 mg solution for injection (Glucagon (HCl) Emergency Kit) 1 mg subcut Q20M PRN Hypoglycemia 02/28/22 [History Last Taken Unknown] guaifenesin 100 mg/5 mL oral liquid 200 mg PO Q4H PRN cough 02/28/22 [History Last Taken Unknown] insulin lispro 100 unit/mL subcutaneous solution (Humalog U-100 Insulin) 1 sliding scale dose subcut USEASDIRECTD 02/28/22 [History Last Taken Unknown] insulin lispro 100 unit/mL subcutaneous solution (Humalog U-100 Insulin) 110 unit subcut TID 02/28/22 [History Last Taken Unknown] lurasidone 40 mg tablet 40 mg PO QAM 02/28/22 [History Last Taken Unknown] magnesium hydroxide 400 mg/5 mL oral suspension (Milk of Magnesia) 30 ml PO DAILY PRN constipation 02/28/22 [History Last Taken Unknown] montelukast 10 mg tablet (Singulair) 10 mg PO QHS 02/28/22 [History Last Taken Unknown] multivitamin 1 tab PO DAILY 02/28/22 [History Last Taken Unknown] potassium chloride 20 mEq tablet,extended release 20 meq PO BID 02/28/22 [History Last Taken Unknown] sennosides 8.6 mg-docusate sodium 50 mg tablet (Senna with Docusate Sodium) 2 tab-cap PO BID 02/28/22 [History Last Taken Unknown] sodium phosphates 19 gram-7 gram/118 mL enema (Fleet Enema) 118 ml PA DAILY PRN constipation 02/28/22 [History Last Taken Unknown] tramadol 100 mg tablet 100 mg PO Q6H PRN pain 02/28/22 [History Last Taken Unknown] insulin regular hum U-500 conc 500 unit/mL(3 mL) subcut pen (Humulin R U-500 (Conc) Insulin Kwikpen) 120 unit (0.24 mL) subcut TIDWMEAL #21.6 mL 03/09/22 [Rx Last Taken Unknown] Lactobacillus rhamnosus GG 10 billion cell capsule (Culturelle) 1 cap PO DAILY 03/11/22 [History Last Taken Unknown] ciprofloxacin HCl 500 mg tablet (Cipro) 500 mg PO BID 03/11/22 [History Last Taken Unknown] Allergy/AdvReac Type Severity Reaction Status Date / Time metformin AdvReac Unknown unknown Verified 03/11/22 16:26 Family History Father Heart disease Myocardial infarction, Onset Age: 64 Hyperlipemia Mother Heart disease Hypertension Hyperlipemia Uncle Heart disease Grandfather Diabetes Grandmother Diabetes Surgical History History of back surgery Social History Smoking Status: Former smoker alcohol intake: former substance use type: does not use what type of physical activity do you participate in: none ROS ROS ED Review of Systems ROS Unobtainable: due to mental status and other Details: Limited to what is documented in HPI and what has been addressed in the review of systems. Constitutional Constitutional ED: Reports fever(s) Respiratory/Chest Respiratory/Chest: Reports cough and dyspnea Gastrointestinal Gastrointestinal: Reports nausea EXAM Physical Exam Const Vital Signs: 03/11/22 16:21 03/11/22 16:27 03/11/22 16:25 Temperature 104.7 F H 104.1 F H Temperature Source Temporal Oral Pulse Rate 130 H 130 H Respiratory Rate 30 H 27 H Respiratory Effort Short of Breath Respiratory Pattern Tachypnea Blood Pressure 164/84 H 164/84 H Blood Pressure Mean 110 110 Pulse Ox 98 95 Oxygen Delivery Method Non-Rebreather Non-Rebreather Non-Rebreather Oxygen Flow Rate (L/min) 10 10 10 03/11/22 16:32 03/11/22 17:25 03/11/22 18:06 Temperature 104.6 F H 104.1 F H Temperature Source Axillary Oral Pulse Rate 123 H 121 H Respiratory Rate 27 H 24 H Respiratory Effort Respiratory Pattern Blood Pressure 172/132 H 200/164 H Blood Pressure Mean 145 176 Pulse Ox 95 95 Oxygen Delivery Method Non-Rebreather Non-Rebreather Non-Rebreather Oxygen Flow Rate (L/min) 10 10 10 03/11/22 18:06 Temperature Temperature Source Pulse Rate 122 H Respiratory Rate 27 H Respiratory Effort Respiratory Pattern Blood Pressure 200/164 H Blood Pressure Mean 176 Pulse Ox 94 Oxygen Delivery Method Non-Rebreather Oxygen Flow Rate (L/min) 10 Positive well nourished, well developed and obese Constitutional Narrative: Patient and appears ill. He is tachypneic. There is no eye contact unless question is addressed to him. He attempts to answer the question and look at me when answering. General Appearance ED: well developed Nutritional Appearance: obese HEENT Reports dry mucous membranes HEENT Narrative: Ears normal. Nares patent. Mucosa is dry. Difficult to see uvula and posterior pharynx because of body habitus. atraumatic Mouth ED: Yes dry mucous membranes Mouth: dry mucous membranes Eyes PERRL and EOMs intact bilaterally General Eye ED: Negative for pale conjunctiva or scleral icterus Neck no lymphadenopathy, supple and no meningeal signs Neck Narrative: Unable to assess for JVD because of body habitus. There is no inspiratory stridor. Resp No normal respiratory effort and No clear to auscultation bilaterally Auscultation: rales bilateral base Cardio regular rhythm, S1 normal heart sound, S2 normal heart sound and no murmurs Rate: tachycardic GI non-tender, non-distended and no masses Narrative: Indwelling Garcia apparently was changed prior to transport from nursing facility Extremity Extremity Narrative: Bilateral lymphedema. There is venous stasis dermatitis noted as well. Neuro No oriented x3 and No CN's II-XII intact bilaterally Neuro Narrative: He is unable to move his legs. Jennings Coma Scale: document GCS findings To Voice Obeys Commands Confused 13 Sensorium / Orientation: Negative for alert, oriented to place or oriented to time Gait (Neuro): Negative for normal gait Psych Thought Process: No normal thought process Skin Skin Narrative: Patient has an ischial sacral wound that will need to be checked. Sepsis Attestation Sepsis Alert: Yes (Sepsis alert was not called however patient meets sepsis criteria.) Date exam was performed: 03/11/22 Time exam was performed: 16:25 Possible Source of Sepsis: Genitourinary Sepsis Organ Dysfunction Criteria Present: Lactic Acid > 2 mmol/L and New/Unexplained change in mental status MDM MDM MDM Narrative Medical decision making narrative: Concerned patient is septic. We will need to determine source. With him coughing and short of breath suspect pulmonary. Antibiotics were chosen will cover both skin and respiratory pathogens. I was informed by nurse that patient is making urine. Urine has the appearance of cream of mushroom soup. Suspect this may also be source of his infection. Zosyn would be an appropriate antibiotic as well. He did have an indwelling Garcia prior to arrival. Nurses assessing if patient can swallow pills. If he is able to after dysphagia screening will order 650 of Tylenol p.o. Lab Data Attestation: I reviewed the patient's lab results. Lab results narrative: Patient does have leukocytosis with a white count of 15.0 thousand with 78% segs 12% lymphs no bands. There is no coagulopathy. Competence of [place] panel reveals an increase in creatinine from 0.67-1.88. GFR is 40. Alkaline phosphatase slightly elevated 122. Labs: Laboratory Results - last 24 hr 03/11/22 03/11/22 03/11/22 16:35 16:35 16:35 WBC 15.0 H RBC 3.65 L Hgb 9.8 L Hct 31.8 L MCV 87.1 MCH 26.8 L MCHC 30.8 L RDW Std Deviation 51.6 H RDW Coeff of Fei 16.1 H Plt Count 345 MPV 10.0 Immature Gran % (Auto) 2.300 H Neut % (Auto) 77.7 H Lymph % (Auto) 11.8 L [place] % (Auto) 7.7 Eos % (Auto) 0.3 Baso % (Auto) 0.2 Absolute Neuts (auto) 11.6 H Absolute Lymphs (auto) 1.76 Nucleated RBC % 0 PT 15.3 H INR 1.2 APTT 22.1 L Sodium 134 L Potassium 4.7 Chloride 97 L Carbon Dioxide 28.0 Anion Gap 9 BUN 33 H Creatinine 1.88 H Estim Creat Clear Calc 46.92 Est GFR (MDRD) Af Amer 48 L Est GFR (MDRD) Non-Af 40 L BUN/Creatinine Ratio 17.6 Glucose 111 H Lactic Acid Calcium 9.8 Total Bilirubin 0.50 AST 51 H ALT 55 Alkaline Phosphatase 122 H Total Protein 7.7 Albumin 2.5 L Globulin 5.2 H Albumin/Globulin Ratio 0.5 L Urine Color Urine Clarity Urine pH Ur Specific [place] Urine Protein Urine Glucose (UA) Urine Ketones Urine Occult Blood Urine Nitrite Urine Bilirubin Urine Urobilinogen Ur Leukocyte Esterase Urine RBC Urine WBC Ur Squamous Epith Cells Urine Bacteria Urine Mucus POC Glucose 03/11/22 03/11/22 03/11/22 16:40 16:48 16:56 WBC RBC Hgb Hct MCV MCH MCHC RDW Std Deviation RDW Coeff of Fei Plt Count MPV Immature Gran % (Auto) Neut % (Auto) Lymph % (Auto) [place] % (Auto) Eos % (Auto) Baso % (Auto) Absolute Neuts (auto) Absolute Lymphs (auto) Nucleated RBC % PT INR APTT Sodium Potassium Chloride Carbon Dioxide Anion Gap BUN Creatinine Estim Creat Clear Calc Est GFR (MDRD) Af Amer Est GFR (MDRD) Non-Af BUN/Creatinine Ratio Glucose Lactic Acid 2.3 H* Calcium Total Bilirubin AST ALT Alkaline Phosphatase Total Protein Albumin Globulin Albumin/Globulin Ratio Urine Color Straw Urine Clarity Turbid Urine pH 6.0 Ur Specific [place] 1.015 Urine Protein 100 H Urine Glucose (UA) Normal Urine Ketones Negative Urine Occult Blood 150 H Urine Nitrite Negative Urine Bilirubin Negative Urine Urobilinogen Normal Ur Leukocyte Esterase 500 H Urine RBC 50-100 SEEN Urine WBC >100 SEEN Ur Squamous Epith Cells 5-10 SEEN Urine Bacteria 4+ Urine Mucus 0 SEEN POC Glucose 113 H ABG Data ABG results: ABG 03/11/22 17:23 Specimen Type ART Sample Site R Radial pH 7.43 Bicarbonate Actual 28.0 H Total CO2 29 Base Excess 4 H O2 Saturation 97 ABG pCO2 42.7 ABG pO2 94 Juvenal Test Positive O2 Delivery Device NRB Liter Flow 10.0 Radiography Chest X-Ray - ED: 1 View and Read by ED Physician (Poor inspiratory volume. Bilateral atelectasis. Borderline cardiomegaly. There is no significant change from prior chest x-ray. This was interpreted by me at 06/24/2006.) Diagnostic Testing: Clinical Impression(s) from Imaging Studies Chest X-Ray 03/11/22 17:00 IMPRESSION: Bibasilar atelectasis without other major interval change. Electronically Signed: Edmundo Garces DO at 17:16 EDT Reading Location ID and State: [address] [place] [address] Tel [phone], Service support , EKG Initial EKG: Attestation: I personally reviewed and interpreted this EKG as follows: Interpretation: Sinus Tachycardia (Ventricular rate is 124. There is low voltage. There is no ossific changes noted. PA interval is_6 ms. QRS duration 80 ms. QT duration 294 ms. No acute ischemic changes noted.) Critical Care Time Critical Care Time: Yes Critical care time (excluding procedures): 30-74 minutes (34 minutes), Including time spent: (History, physical, documentation, review of prior records, initiation of therapy after interpretation of laboratory results), Discussing w/Patient &/or Family/Furnace Combination Analyst, Discussing w/Consultants and Arranging Admission or Transfer Discharge Plan Dx/Rx/DC Orders Clinical Impression: Sepsis with acute organ dysfunction without septic shock, Anemia, Urinary tract infection, Sinus tachycardia, Acute dyspnea, Acute kidney injury, Decubitus ulcer of sacral region, stage 4 Disposition Disposition: Acute Care [facility]
--- NOTE | 2022-03-11 16:36 | ED.RN ---
ACCORDING TO NURSE AT [facility], 1 GRAM TYLENOL WAS LAST GIVEN AT [facility] TODAY. AGUSTIN Mccormack RN CALLED FACILITY
[2022-03-11] MEDS: Lactated Ringers 1,000 ML 250 ML IV (16:45)
--- NOTE | 2022-03-11 17:00 | RAD_ITS ---
STUDY: X-RAY CHEST REASON FOR EXAM: Male, 51 years old. Fever, cough and shortness of breath. TECHNIQUE: Single AP portable view of the chest. COMPARISON: 08/29/2021. FINDINGS: Limited inspiratory effort with bibasilar atelectatic changes. The lungs are otherwise clear. There is no demonstrated pleural abnormality. Normal size heart. Normal mediastinum and ok. Normal visualized pulmonary arteries. Normal visualized aortic arch and descending thoracic aorta. Limited visualization of the thoracic spine. Again seen is surgical changes of the thoracolumbar region. Normal visualized ribs, clavicles, and shoulders. There is no demonstrated abnormality of the visualized soft tissue structures of the upper abdomen. RAD/Chest 1 View (Portable) IMPRESSION: Bibasilar atelectasis without other major interval change. Electronically Signed: Edmundo Garces DO at 17:16 EDT ,
[2022-03-11 17:08] LABS: Mucous, Urine 0 SEEN /hpf (<or=2+)
[2022-03-11 17:09] LABS: Absolute Lymphocyte Count 1.76 X10^3/uL (0.83-4.51); Absolute Neutrophil Count 11.6 X10^3/uL (2.0-7.7); Basophil# 0.03 X10^3/uL; Basophil% 0.2 % (0-1); Eosinophil# 0.05 X10^3/uL; Eosinophils% 0.3 % (0-5); Hematocrit 31.8 % (40-54); Hemoglobin 9.8 g/dL (13.0-16.5); Lymphocyte # 1.76 X10^3/ul (0.83-4.51); Lymphocyte % 11.8 % (19-41); Mean Corp Hgb Conc 30.8 g/dL (32-36); Mean Corpuscular Hgb 26.8 pg (27.0-32.0); Mean Corpuscular Volume 87.1 fL (80-94); Monocyte# 1.15 X10^3/uL; Monocyte% 7.7 % (0-10); NRBC Flagged by Analyzer 0 % (0-5); Neutrophil # 11.63 X10^3/uL (2.7-7.7); Neutrophil % 77.7 % (47-70); Platelet Count 345 K/mm3 (150-450); RBC Distribution Width CV 16.1 % (11.6-14.6); RBC Distribution Width SD 51.6 fl (35.1-43.9); Red Blood Count 3.65 M/mm3 (4.6-6.2)
[2022-03-11 17:10] LABS: Color, Urine Straw (Yellow); Glucose, Dipstick Normal (Normal); Ketone-Dipstick Negative (Negative); Leukocyte Esterase-Dipstick 500 /ul (Negative); Nitrite-Dipstick Negative (Negative); Occult Blood-Urine 150 /ul (Negative); Protein-Dipstick 100 mg/dl (Negative); Specific Gravity, Urine 1.015 (1.002-1.030); Urine Bilirubin Dipstick Negative (Negative); Urine Clarity Turbid (Clear); Urine Urobilinogen Normal (Normal)
[2022-03-11 17:19] LABS: International Normalized Ratio 1.2; Prothrombin Time (Protime)PT. 15.3 SECONDS (11.7-14.9)
[2022-03-11 17:20] LABS: Partial Thromboplast Time 22.1 Seconds (24.1-36.2)
[2022-03-11 17:21] LABS: Bacteria 4+ /hpf (None Seen); Red Blood Cells-Urine 50-100 SEEN /hpf (0-5); Squamous Epithelial Cells - UA 5-10 SEEN /hpf (0-5); White Blood Cells >100 SEEN /hpf (0-5)
[2022-03-11 17:21] LABS: Bedside Glucose 113 mg/dL (74-106)
[2022-03-11 17:28] LABS: ALB/GLOB Ratio 0.5 RATIO (0.9-2.4); AST(SGOT) 51 U/L (15-37); Alanine Aminotransfer ALT/SGPT 55 U/L (16-61); Albumin, Serum 2.5 g/dL (3.2-5.0); Alkaline Phosphatase 122 U/L (45-117); Anion Gap 9 (5-15); BUN 33 mg/dL (7-18); BUN/Creat Ratio 17.6 RATIO (10-20); Calcium,Total 9.8 mg/dL (8.5-10.1); Chloride 97 mmol/L (98-107); Creatinine, Serum 1.88 mg/dL (0.70-1.30); EST Glomerular Filtration Rate 40 mL/min (>60); Est Glom Filt Rate - Afr Amer 48 mL/min (>60); Estimated Creatinine Clearance 46.92 ml/min; Globulin 5.2 g/dL (2.2-4.2); Glucose 111 mg/dL (74-106); Potassium 4.7 mmol/L (3.5-5.1); Protein, Total 7.7 g/dL (6.4-8.2); Sodium Level 134 mmol/L (136-145)
[2022-03-11 17:31] LABS: Allen Test Positive; Base Excess 4 mmol/L (-2 to +2); Blood Gas Specimen Type ART; O2 Delivery Device NRB; PO2 94 mmHG (75-100); SITE R Radial; SO2 97 % (95-99); Total Carbon Dioxide 29 mmol/L; pCO2 42.7 mmHg (35-45); pH 7.43 (7.35-7.45)
[2022-03-11 17:54] LABS: Lactic Acid 2.3 mmol/L (0.4-1.9)
[2022-03-11] MEDS: Acetaminophen 650 MG/20 ML UDC PO (18:03)
--- NOTE | 2022-03-11 19:38 | PCM.HP.STD ---
HPI - General General Date of Admission: 03/11/22 Date of Service: 03/11/22 Chief Complaint: Shortness of breath HPI Narrative SERENITY MACHADO, is a 51 M who presented to the emergency department at [facility] from his [facility] where he is a chronic resident complaining of shortness of breath, cough and hypoxia. The patient is paraplegic and bedridden at baseline. Upon presentation he had some mild encephalopathy and was confused with some orientation questions per ER documentation however this seems to be improved at the time of my evaluation. He has had associated fever and chills with minimal sputum production. He has a chronic Garcia and reports that he was diagnosed with a urinary tract infection approximately 1-1/2 weeks ago. Unfortunately the culture results are not available in our system. He was placed on ciprofloxacin and has been taking this since then. He states yesterday he started feeling poorly having chills with no documented fever, had some nausea with a few episodes of emesis which is since resolved, and general malaise. He indicates he feels a little bit better today than yesterday actually. He has a chronic wound in the sacral region which he indicates has been improving slowly over time. He was noted to be hypoxic on presentation and placed on a nonrebreather at 10 L. He indicates he is currently hungry and feels like he can eat a regular diet. Vital signs on presentation demonstrated a temperature of 104.7, pulse of 130, blood pressure of 164/84, respiratory rate of 30, and oxygen saturations were 98% on a nonrebreather at 10 L. Room air documentation was at never noted however the patient has been on room air with oxygen saturations prior to this admission satting 93% so I do suspect he has hypoxia upon presentation. His CBC showed a significant leukocytosis with a white count of 15,000 and a left shift. His hemoglobin is chronically low and stable. His coags were normal with an INR of 1.2. A blood gas was obtained and his pH was normal at 7.43 with a PCO2 of 42.7 and his PO2 was 94 with a sat of 97% on 10 L nonrebreather. His CBC shows mild hyponatremia with a sodium of 134 and hypochloremia with a chloride of 97. His BUN and creatinine are elevated from baseline at 33 and 1.8 respectively (baseline serum creatinine appears to be 0.5-0.7). His AST was mildly elevated at 51 and his lactic acid was 2.3 on admission. His urine is consistent with infection showing some occult blood leukoesterase greater than 100 white cells per high-powered field and 4+ bacteria. His chest x-ray shows bibasilar atelectasis without any other major interval changes. His EKG shows sinus tachycardia without any ST-T wave changes consistent with acute ischemia. The emergency department he was treated for sepsis. Blood cultures were obtained and broad-spectrum antibiotics including Zosyn and vancomycin were initiated. [facility] Medical History Acute respiratory failure, unspecified whether with hypoxia or hypercapnia Alcohol abuse Anemia Anxiety and depression Anxiety disorder Avelar's palsy Blister (nonthermal), right foot, initial encounter Chronic ulcer of right foot with fat layer exposed CPAP (continuous positive airway pressure) dependence Decubitus ulcer, buttock Depression Diabetes DVT (deep venous thrombosis) Edema of both lower extremities Essential (primary) hypertension Former smoker Headache Hemoglobin A1c 8.0% or greater History of foot ulcer History of stress test history of tooth removal Hyperlipidemia Incontinence 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 Insomnia Left shoulder pain 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) 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 Morbid (severe) obesity due to excess calories Neuromuscular dysfunction of bladder, unspecified Neuropathic pain Obesities, morbid Obstructive sleep apnea On home oxygen therapy Osteoporosis Other seasonal allergic rhinitis Paraplegia Pressure sore of left ischium, unstageable Pressure ulcer Pressure ulcer of left buttock, unstageable Pressure ulcer of right buttock, unstageable Pressure ulcer of sacral region, unstageable Primary osteoarthritis, left shoulder Sacral wound Self-catheterizes urinary bladder Sepsis Skin necrosis Skin ulcer of left hip Skin ulcer of right hip Sleep apnea Stage II pressure ulcer Stage II pressure ulcer of buttock Type 2 diabetes mellitus with diabetic polyneuropathy Wound infection Home Medications male urinal #1 ea 08/23/18 [Rx Last Taken Unknown] wash basin #1 ea 08/23/18 [Rx Last Taken Unknown] gauze bandage 4 X 4 (Curad Gauze Pad) #2,000 ea 04/22/19 [Rx Last Taken Unknown] shower chair bariatric #1 ea 04/29/19 [Rx Last Taken Unknown] lancets 28 gauge (FreeStyle Lancets) #200 ea 07/04/19 [Rx Last Taken Unknown] hydrocortisone 2.5 % topical ointment 1 applic topical BID PRN rash #454 grams 07/01/20 [Rx Last Taken 08/18/21] OneTouch Verio Flex meter (blood-glucose meter) #1 ea 07/16/20 [Rx Last Taken Unknown] lancets 33 gauge (OneTouch Delica Lancets) #100 ea 07/16/20 [Rx Last Taken Unknown] Wood transfer board, 32 inches in length 10 inches wide 1/2 inch thick #1 ea 09/06/20 [Rx Last Taken Unknown] lancets 33 gauge (OneTouch Delica Plus Lancet) #100 ea 09/16/20 [Rx Last Taken Unknown] compr.stocking,thigh,reg,large #6 ea 11/11/20 [Rx Last Taken Unknown] compress.stocking,knee,reg,lrg #6 ea 11/12/20 [Rx Last Taken Unknown] cpap mask #1 ea 07/14/21 [Rx Last Taken Unknown] atorvastatin 20 mg tablet 20 mg PO QHS cholesterol lowering 08/29/21 [History Last Taken 08/28/21] hydrochlorothiazide 25 mg tablet 25 mg PO DAILY water pill, htn 08/29/21 [History Last Taken 08/29/21] doxazosin 1 mg tablet 1 mg PO QHS BPH #90 tabs 11/09/21 [Rx Last Taken Unknown] pen needle, diabetic 32 gauge x 5/32 (BD Ultra-Fine Jenny Pen Needle) #100 ea 12/02/21 [Rx Last Taken Unknown] OneTouch Verio test strips (blood sugar diagnostic) #100 ea 12/22/21 [Rx Last Taken Unknown] acetaminophen 325 mg capsule 650 mg PO Q4H PRN pain 02/28/22 [History Last Taken Unknown] acetaminophen 500 mg capsule 1,000 mg PO TID PRN pain 02/28/22 [History Last Taken Unknown] aluminum-magnesium hydroxide 200 mg-200 mg/5 mL oral suspension 30 ml PO Q4H PRN GI distress 02/28/22 [History Last Taken Unknown] amlodipine 10 mg tablet 10 mg PO DAILY 02/28/22 [History Last Taken Unknown] ascorbate calcium (vitamin C) 500 mg tablet 500 mg PO DAILY 02/28/22 [History Last Taken Unknown] bisacodyl 10 mg rectal suppository 10 mg IA DAILY PRN Constipation 02/28/22 [History Last Taken Unknown] dextrose 40 % oral gel (Glucose Gel) 10 g PO Q15M PRN 02/28/22 [History Last Taken Unknown] dulaglutide 4.5 mg/0.5 mL subcutaneous pen injector (Trulicity) 4.5 mg subcut .QTH blood sugar 02/28/22 [History Last Taken Unknown] enoxaparin 40 mg/0.4 mL subcutaneous syringe 40 mg subcut DAILY 02/28/22 [History Last Taken Unknown] famotidine 20 mg tablet 20 mg PO BID 02/28/22 [History Last Taken Unknown] fluticasone propionate 50 mcg/actuation nasal spray,suspension 2 spray intranasal BID 02/28/22 [History Last Taken Unknown] furosemide 40 mg tablet 40 mg PO BID 02/28/22 [History Last Taken Unknown] gabapentin 400 mg capsule 400 mg PO 4X/DAY 02/28/22 [History Last Taken Unknown] glucagon HCl 1 mg solution for injection (Glucagon (HCl) Emergency Kit) 1 mg subcut Q20M PRN Hypoglycemia 02/28/22 [History Last Taken Unknown] guaifenesin 100 mg/5 mL oral liquid 200 mg PO Q4H PRN cough 02/28/22 [History Last Taken Unknown] insulin lispro 100 unit/mL subcutaneous solution (Humalog U-100 Insulin) 1 sliding scale dose subcut USEASDIRECTD 02/28/22 [History Last Taken Unknown] insulin lispro 100 unit/mL subcutaneous solution (Humalog U-100 Insulin) 110 unit subcut TID 02/28/22 [History Last Taken Unknown] lurasidone 40 mg tablet 40 mg PO QAM 02/28/22 [History Last Taken Unknown] magnesium hydroxide 400 mg/5 mL oral suspension (Milk of Magnesia) 30 ml PO DAILY PRN constipation 02/28/22 [History Last Taken Unknown] montelukast 10 mg tablet (Singulair) 10 mg PO QHS 02/28/22 [History Last Taken Unknown] multivitamin 1 tab PO DAILY 02/28/22 [History Last Taken Unknown] potassium chloride 20 mEq tablet,extended release 20 meq PO BID 02/28/22 [History Last Taken Unknown] sennosides 8.6 mg-docusate sodium 50 mg tablet (Senna with Docusate Sodium) 2 tab-cap PO BID 02/28/22 [History Last Taken Unknown] sodium phosphates 19 gram-7 gram/118 mL enema (Fleet Enema) 118 ml IA DAILY PRN constipation 02/28/22 [History Last Taken Unknown] tramadol 100 mg tablet 100 mg PO Q6H PRN pain 02/28/22 [History Last Taken Unknown] Lactobacillus rhamnosus GG 10 billion cell capsule (Culturelle) 1 cap PO DAILY 03/11/22 [History Last Taken Unknown] ciprofloxacin HCl 500 mg tablet (Cipro) 500 mg PO BID 03/11/22 [History Last Taken Unknown] Allergy/AdvReac Type Severity Reaction Status Date / Time metformin AdvReac Unknown unknown Verified 03/11/22 16:26 Family History Father Heart disease Myocardial infarction, Onset Age: 64 Hyperlipemia Mother Heart disease Hypertension Hyperlipemia Uncle Heart disease Grandfather Diabetes Grandmother Diabetes Surgical History History of back surgery Social History Smoking Status: Former smoker alcohol intake: former substance use type: does not use what type of physical activity do you participate in: none ROS Constitutional Constitutional: Reports chills, fatigue, fever(s), malaise and weakness; Denies anorexia, change in weight, night sweats or other Eyes Eyes: Denies blurry vision, change in eye color, change in vision, discharge from eye(s), double vision, erythema, eye pain, loss of vision or other ENT HEENT: Denies abnormal hearing, dysphagia, ear pain, epistaxis, headache(s), hearing loss, nasal congestion, nasal discharge, post nasal drip, sinus pressure, sore throat or other Cardiovascular Cardiovascular: Denies chest pain, claudication, dyspnea on exertion, edema, lightheadedness, orthopnea, palpitations, paroxysmal nocturnal dyspnea, rapid heart rate, syncope or other Respiratory/Chest Respiratory/Chest: Reports cough, productive cough and shortness of breath with exertion; Denies dyspnea, excessive phlegm production, hemoptysis, shortness of breath at rest, wheezing or other Gastrointestinal Gastrointestinal: Reports nausea and vomiting; Denies abdominal pain, coffee ground emesis, constipation, diarrhea, dyspepsia, hematemesis, hematochezia, loose stools, melena or other Genitourinary Genitourinary: Reports other Details: Patient with paraplegia and chronic indwelling Garcia ; Denies burning urination, difficulty urinating, dysuria, hematuria, nocturia, urinary frequency, urinary hesitancy, urinary incontinence or urinary urgency Musculoskeletal Musculoskeletal: Denies arthralgias, back pain, joint pain, joint stiffness, joint swelling, myalgias, neck pain or other Neurologic Neurologic: Reports abnormal gait, confusion, focal weakness and numbness; Denies abnormal speech, disequilibrium, dizziness, headache(s), paresthesias, seizure-like activity, seizures, syncope, tingling, tremor(s) or other Psychiatric Psychiatric: Reports depression; Denies anxiety, homicidal ideation, suicidal ideation or other Endocrine Endocrinology: Denies change in body appearance, cold intolerance, excessive sweating, heat intolerance, polydipsia, polyuria or other Hematologic/Lymphatic Hematologic/Lymphatic: Denies anemia, easy bleeding, easy bruising, lymphadenopathy or other Allergic/Immunologic Allergic/Immunologic: Denies rhinitis, hives, eczemia, asthma or other Vital Signs Vital Signs Vital Signs: 03/11/22 16:21 03/11/22 16:27 03/11/22 16:25 Temperature 104.7 F H 104.1 F H Temperature Source Temporal Oral Pulse Rate 130 H 130 H Respiratory Rate 30 H 27 H Respiratory Effort Short of Breath Respiratory Pattern Tachypnea Blood Pressure 164/84 H 164/84 H Blood Pressure Mean 110 110 Pulse Ox 98 95 Oxygen Delivery Method Non-Rebreather Non-Rebreather Non-Rebreather Oxygen Flow Rate (L/min) 10 10 10 03/11/22 16:32 03/11/22 17:25 03/11/22 18:06 Temperature 104.6 F H 104.1 F H Temperature Source Axillary Oral Pulse Rate 123 H 121 H Respiratory Rate 27 H 24 H Respiratory Effort Respiratory Pattern Blood Pressure 172/132 H 200/164 H Blood Pressure Mean 145 176 Pulse Ox 95 95 Oxygen Delivery Method Non-Rebreather Non-Rebreather Non-Rebreather Oxygen Flow Rate (L/min) 10 10 10 03/11/22 18:06 03/11/22 18:31 03/11/22 18:57 Temperature 103.4 F H 103.4 F H Temperature Source Axillary Axillary Pulse Rate 122 H 115 H Respiratory Rate 27 H 24 H Respiratory Effort Respiratory Pattern Blood Pressure 200/164 H 200/164 H Blood Pressure Mean 176 176 Pulse Ox 94 97 Oxygen Delivery Method Non-Rebreather Non-Rebreather Oxygen Flow Rate (L/min) 10 03/11/22 19:00 Temperature Temperature Source Pulse Rate 110 H Respiratory Rate 32 H Respiratory Effort Respiratory Pattern Blood Pressure 132/102 H Blood Pressure Mean 112 Pulse Ox 96 Oxygen Delivery Method Non-Rebreather Oxygen Flow Rate (L/min) Weight Weight: 189.1 kg Body Mass Index (BMI) 58.3 Physical Exam Const alert, oriented x3, no apparent distress and well nourished Constitutional Narrative: Morbidly obese middle-aged white male sitting up in bed on a nonrebreather, nursing at bedside, patient appears toxic, diaphoretic and warm to touch General Appearance: cooperative HEENT normocephalic, head/scalp atraumatic, hearing grossly normal bilaterally and moist oral mucous membranes HEENT Narrative: Mallampati is 3, no thrush Eyes PERRL and EOMs intact bilaterally; Negative for conjunctivae normal Eyes Narrative: Mild conjunctival pallor bilaterally, no scleral icterus Neck no lymphadenopathy, supple, no JVD and no carotid bruits Neck Narrative: Neck is short and thick Resp no retractions and no use of accessory muscles Resp Narrative: Patient is tachypneic markedly diminished in exam limited secondary to restricted mobility and body habitus Auscultation: Negative for crackles, rales, rhonchi or wheezes Cardio regular rhythm, S1 normal heart sound, S2 normal heart sound, no murmurs, no rub, no gallops and no clicks Cardio Narrative: Tachycardic GI normal to inspection, nondistended, normoactive bowel sounds, soft to palpation and non-tender Extremity Extremity Narrative: Chronic bilateral lower extremity edema Skin No no wounds, skin turgor normal, no jaundice, no petechiae and no mottling Skin Narrative: Unable to observe chronic sacral wound secondary to body habitus and bed size Neuro oriented x3 and CN's II-XII intact bilaterally Neuro Narrative: Patient with lateral lower extremity paraplegia, moves upper extremities symmetrically without any deficits Speech: speech normal Psych affect normal Results Lab / Micro Data Attestation: I reviewed the patient's lab results. Result Diagrams: 03/12/22 06:00 03/11/22 16:35 Labs: Laboratory Results - last 24 hr 03/11/22 16:35: WBC 15.0 H, RBC 3.65 L, Hgb 9.8 L, Hct 31.8 L, MCV 87.1, MCH 26.8 L, MCHC 30.8 L, RDW Std Deviation 51.6 H, RDW Coeff of Fei 16.1 H, Plt Count 345, MPV 10.0, Immature Gran % (Auto) 2.300 H, Neut % (Auto) 77.7 H, Lymph % (Auto) 11.8 L, Sargent % (Auto) 7.7, Eos % (Auto) 0.3, Baso % (Auto) 0.2, Absolute Neuts (auto) 11.6 H, Absolute Lymphs (auto) 1.76, Nucleated RBC % 0 03/11/22 16:35: PT 15.3 H, INR 1.2, APTT 22.1 L 03/11/22 16:35: Sodium 134 L, Potassium 4.7, Chloride 97 L, Carbon Dioxide 28.0, Anion Gap 9, BUN 33 H, Creatinine 1.88 H, Estim Creat Clear Calc 46.92, Est GFR (MDRD) Af Amer 48 L, Est GFR (MDRD) Non-Af 40 L, BUN/Creatinine Ratio 17.6, Glucose 111 H, Calcium 9.8, Total Bilirubin 0.50, AST 51 H, ALT 55, Alkaline Phosphatase 122 H, Total Protein 7.7, Albumin 2.5 L, Globulin 5.2 H, Albumin/Globulin Ratio 0.5 L 03/11/22 16:40: Lactic Acid 2.3 H* 03/11/22 16:48: POC Glucose 113 H 03/11/22 16:56: Urine Color Straw, Urine Clarity Turbid, Urine pH 6.0, Ur Specific [place] 1.015, Urine Protein 100 H, Urine Glucose (UA) Normal, Urine Ketones Negative, Urine Occult Blood 150 H, Urine Nitrite Negative, Urine Bilirubin Negative, Urine Urobilinogen Normal, Ur Leukocyte Esterase 500 H, Urine RBC 50-100 SEEN, Urine WBC >100 SEEN, Ur Squamous Epith Cells 5-10 SEEN, Urine Bacteria 4+, Urine Mucus 0 SEEN Micro: Microbiology 03/11/22 16:59 Nasal Secretion SARS-CoV-2 Antigen (Rapid) - Final ABG Data ABG results: ABG 03/11/22 17:23 Specimen Type ART Sample Site R Radial pH 7.43 Bicarbonate Actual 28.0 H Total CO2 29 Base Excess 4 H O2 Saturation 97 ABG pCO2 42.7 ABG pO2 94 Juvenal Test Positive O2 Delivery Device NRB Liter Flow 10.0 Radiology Impression Chest X-Ray 03/11/22 17:00 IMPRESSION: Bibasilar atelectasis without other major interval change. Electronically Signed: Edmundo Garces DO at 17:16 EDT Reading Location ID and State: [address] [place] [address] Tel [phone], Service support , Assessment & Plan Assessment/Plan (1) Sepsis with acute organ dysfunction without septic shock: (2) Urinary tract infection: (3) Acute respiratory failure with hypoxia: (4) Lactic acidosis: (5) ION (acute kidney injury): (6) Leukocytosis: (7) Decubitus ulcer of sacral region, stage 4: PLAN: Plan Sepsis suspected secondary to urinary tract infection -Patient with fever of 104+, tachypnea, tachycardia, leukocytosis, acute respiratory failure with elevated creatinine significant from baseline at 1.88, and a lactic acidosis greater than 2, also presented with encephalopathy however improving upon my exam -Patient was cultured in the emergency department -We will check COVID-19 and flu -Check strep pneumo and Legionella antigens with respiratory failure -Broad-spectrum antibiotics with vancomycin and Zosyn -Discontinue home ciprofloxacin -Lactic acids per protocol -Change Garcia catheter ION -Baseline serum creatinine is 0.5-0.7 -Current serum creatinine is 1.88 -Hold home Lasix and hydrochlorothiazide -IV fluids with normal saline at 125 cc/h -Change Garcia catheter -Repeat lab in a.m. -Hold baseline potassium replacement Acute hypoxic respiratory failure -Patient requiring 10 L nonrebreather on presentation with a PaO2 of 94 and a sat of 97 on 10 L -Baseline oxygen on room air however it was not identified but given the PaO2 on 10 L this is indicative of hypoxia -Continue supplemental oxygen with heated high flow nasal cannula versus Airvo to keep oxygen saturations greater than 92% -Incentive spirometry -Check COVID and flu antigens -Check strep pneumo and Legionella antigens -Broad-spectrum antibiotics -No pneumonia seen on chest x-ray however patient appears clinically dry Lactic acidosis -See above Leukocytosis -See above Chronic stage II sacral pressure ulcer -Per patient this has been improving and getting smaller -We will culture wound -Send MRSA antigens of wound -Wound care consultation DM-2 -Patient is on U500 insulin -Discussed with patient he anticipates his oral intake should be comparable to home -We will continue home insulin doses with sliding scale -Accu-Cheks 3 times daily and at bedtime Hypertension -Hold home and high chlorothiazide -Continue home amlodipine -As needed labetalol available for systolic greater than 160 Hyperlipidemia -Continue home statin Paraplegia -Patient is at baseline Morbid obesity -Complicates treatment, prognosis, outcomes -BMI is 56.8 -Recommend weight loss DVT prophylaxis -Lovenox -SCDs CODE STATUS -Full code as per discussion on admission the emergency department Sepsis Attestation Sepsis Alert: Yes Sepsis Attestation: Agree w/Sepsis Date exam was performed: 03/11/22 Time exam was performed: 19:05 Possible Source of Sepsis: Pulmonary, Genitourinary and Skin/soft tissue Sepsis Organ Dysfunction Criteria Present: Acute Respiratory Failure (New need for BiPAP/CPAP or MV), Lactic Acid > 2 mmol/L, PaO2/FiO2 ratio < 300 and New/Unexplained change in mental status Supportive Findings: Patient also had a fever of 104+, tachypnea, tachycardia, severe leukocytosis and his baseline creatinine is 0.5-0.7 his creatinine on presentation was 1.88 meeting requirements for acute kidney injury however serum creatinine was not greater than 2 but as stated markedly above baseline Fluid Resuscitation Fluid Resuscitation ordered: Fluids not indicated Reason for lesser fluid bolus:: Other (Patient was not relatively hypotensive or hypotensive) Charges/Coding Visit Charges Inpatient E&M: 75657 Init Hosp L3
[2022-03-11 19:49] LABS: CPK Total, Creatine Kinase 57 U/L (39-308)
--- NOTE | 2022-03-11 21:03 | PCM.RX.CS ---
Consult Pharmacy has been consulted to manage selected antiobiotic: Vancomycin Type of Consult: New start Suspected Infection: Sepsis Labs: Sodium 134 mmol/L (136-145) L 03/11/22 16:35 Potassium 4.7 mmol/L (3.5-5.1) 03/11/22 16:35 Chloride 97 mmol/L (98-107) L 03/11/22 16:35 Carbon Dioxide 28.0 mmol/L (21.0-32.0) 03/11/22 16:35 Anion Gap 9 (5-15) 03/11/22 16:35 BUN 33 mg/dL (7-18) H 03/11/22 16:35 Creatinine 1.88 mg/dL (0.70-1.30) H 03/11/22 16:35 Est GFR (MDRD) Af Amer 48 mL/min (>60) L 03/11/22 16:35 Est GFR (MDRD) Non-Af 40 mL/min (>60) L 03/11/22 16:35 BUN/Creatinine Ratio 17.6 RATIO (10-20) 03/11/22 16:35 Glucose 111 mg/dL (74-106) H 03/11/22 16:35 Microbiology: Microbiology 03/11/22 16:56 Urine Catheter - Catheter Streptococcus pneumoniae Antigen (M - Final 03/11/22 18:46 Nasal Secretion SARS-CoV-2 & FLU Antigen (Rapid) - Final 03/11/22 16:56 Urine Catheter - Garcia Legionella Antigen - Final 03/11/22 16:59 Nasal Secretion SARS-CoV-2 Antigen (Rapid) - Final Weight used for dosin.7 kg Estimated Creatinine Clearance: 76.6 Goal Trough: 15-20 mcg/mL Pharmacy Plan for Drug Dosing: Pharmacy Service will continue to monitor and adjust dosing as required. Medications Vancomycin HCl 1,750 mg/ (Sodium Chloride) 535 mls @ 250 mls/hr IV Q12H SOPHIE Discontinued Medications Vancomycin HCl 2,000 mg/ (Sodium Chloride) 540 mls @ 250 mls/hr IV X1 ONE Stop: 03/11/22 18:54 Last Admin: 03/11/22 20:39 Dose: Infused Follow-Up Labs: Trough Vancomycin Labs to be done on [date and time ordered]: 03/13 @ 0400
[2022-03-11 21:04] LABS: Reflex Lactate? Y
[2022-03-11] MEDS: 0.9% Normal Saline 1,000 ML 125 ML IV (21:08)
[2022-03-11] MEDS: CLARIFY ORDER 1 EACH NOTE ×2 (21:37)
[2022-03-11] MEDS: Insulin U-500 UNITS/ML PEN 120 UNITS SC (21:37)
[2022-03-11] MEDS: Fluticasone 0.05% 1 SPRAY NASAL.SRY 2 SPRAY NASAL (21:38)
[2022-03-11] MEDS: Atorvastatin Calcium 20 MG Tablet PO (21:39)
[2022-03-11] MEDS: Senna/Docusate Sodium 1 Tablet 2 TABLET PO (21:39)
[2022-03-11] MEDS: Famotidine 20 MG Tablet PO (21:39)
[2022-03-11] MEDS: Montelukast 10 MG Tablet PO (21:40)
[2022-03-11] MEDS: Acetaminophen 325 MG Tablet 650 MG PO (21:42)
[2022-03-11] MEDS: Doxazosin 1 MG Tablet PO (21:43)
--- NOTE | 2022-03-11 21:46 | PCM.HOSP.N ---
Hospitalist Note BL UE redness and edema with IV vanc adminstration. RN notes had switched arms once occurred in case alternate cause but similar reaction. Will d/c Vanc. Reviewed prior Cx and no noted MRSA. Currently MRSA screen pending for wound and screen also.
[2022-03-11] MEDS: 0.9% Saline Lock 10 ML Syringe IV (21:56)
[2022-03-11 22:02] LABS: M R Staph aureus DNA By PCR Negative (Negative); Specimen Processing Control PASS; Staph aureus DNA By PCR NEGATIVE (Negative)
[2022-03-11 22:03] LABS: Probe Check PASS
[2022-03-11 22:15] LABS: Bedside Glucose 210 mg/dL (74-106)
[2022-03-11 23:09] LABS: Lactic Acid 1.2 mmol/L (0.4-1.9)
[2022-03-12] VITALS (30 sets, daily range): BP systolic 98–142; BP diastolic 46–70; PULSE 81–106; RESP 15–26; TEMP 37.6–39.9; O2SAT 93–100
[2022-03-12] MEDS: 0.9% Normal Saline 1,000 ML 125 ML IV ×3 (05:10→20:08)
[2022-03-12 06:12] LABS: Absolute Neutrophil Count 10.9 X10^3/uL (2.0-7.7); Basophil# 0.04 X10^3/uL; Basophil% 0.3 % (0-1); Eosinophil# 0.05 X10^3/uL; Eosinophils% 0.4 % (0-5); Hematocrit 29.8 % (40-54); Hemoglobin 8.8 g/dL (13.0-16.5); Lymphocyte % 8.2 % (19-41); Mean Corp Hgb Conc 29.5 g/dL (32-36); Mean Corpuscular Hgb 26.2 pg (27.0-32.0); Mean Corpuscular Volume 88.7 fL (80-94); Mean Platelet Vol. 9.5 fl (6.2-12.0); Monocyte# 1.23 X10^3/uL; Monocyte% 9.1 % (0-10); NRBC Flagged by Analyzer 0 % (0-5); Neutrophil # 10.85 X10^3/uL (2.7-7.7); Neutrophil % 80.4 % (47-70); Platelet Count 300 K/mm3 (150-450); RBC Distribution Width CV 16.3 % (11.6-14.6); RBC Distribution Width SD 53.1 fl (35.1-43.9); Red Blood Count 3.36 M/mm3 (4.6-6.2); White Blood Count 13.5 K/mm3 (4.4-11.0)
--- NOTE | 2022-03-12 06:46 | PCM.HOSP.N ---
Hospitalist Note Right Forearm Bld Cx resulting with gram positive cocci in chains specifically consistent with streptococcal. Currently on IV zosyn which would cover this, had IV vanc prior in the ED but this was d/c secondary to prior noted reaction.
[2022-03-12 07:18] LABS: ALB/GLOB Ratio 0.4 RATIO (0.9-2.4); AST(SGOT) 49 U/L (15-37); Alanine Aminotransfer ALT/SGPT 67 U/L (16-61); Albumin, Serum 2.1 g/dL (3.2-5.0); Alkaline Phosphatase 139 U/L (45-117); Anion Gap 9 (5-15); BUN 29 mg/dL (7-18); Calcium,Total 9.2 mg/dL (8.5-10.1); Chloride 100 mmol/L (98-107); Creatinine, Serum 1.53 mg/dL (0.70-1.30); EST Glomerular Filtration Rate 51 mL/min (>60); Est Glom Filt Rate - Afr Amer 61 mL/min (>60); Estimated Creatinine Clearance 59.47 ml/min; Globulin 4.9 g/dL (2.2-4.2); Glucose 124 mg/dL (74-106); Magnesium 2.1 mg/dL (1.6-2.6); Phosphorus 4.7 mg/dL (2.5-4.9); Potassium 2.9 mmol/L (3.5-5.1); Sodium Level 137 mmol/L (136-145)
[2022-03-12] MEDS: traMADol 50 MG Tablet 100 MG PO ×2 (08:34→20:14)
[2022-03-12] MEDS: Acetaminophen 325 MG Tablet 650 MG PO ×3 (08:34→23:30)
[2022-03-12] MEDS: Potassium Chloride Oral Tablet 20 MEQ 60 MEQ PO (08:35)
--- NOTE | 2022-03-12 08:49 | PCM.PN.HOSP ---
Subjective Subjective Acute issues overnight. Blood pressures did drop considerably since admission and we have since held blood pressure medication. This was expected as I anticipate he has gram-negative sepsis and once we started treatment he decompensated some with regards to his blood pressure. Overall, he states he is feeling better. Has been weaned to 4 L nasal cannula when off CPAP. May be able to transfer to PCU later today if blood pressure remains more stabilized. Objective Data Objective Data Vital Signs: Vital Signs Temp Pulse Resp BP Pulse Ox O2 Del Method O2 Flow Rate 100.1 F H 81 18 118/69 98 CPAP 2 03/12/22 06:00 03/12/22 06:00 03/12/22 06:00 03/12/22 06:00 03/12/22 06:00 03/12/22 06:00 03/12/22 02:00 FiO2 35 03/12/22 04:32 Oxygen Flow Rate (L/min) 2 Oxygen Delivery Method CPAP Weight: 184.6 kg Body Mass Index (BMI) 57.1 Intake & Output: Intake and Output for Last 24 Hours 03/10/22 03/11/22 03/12/22 23:59 23:59 23:59 Intake Total 2819.17 / 2819.17 1650 / 1650 Output Total 850 / 850 3500 / 3500 Balance 1969.17 / 1969.17 -1850 / -1850 Lab / Micro Data Result Diagrams: 03/12/22 06:00 03/12/22 06:00 Labs: Laboratory Results - last 24 hr 03/11/22 16:35: WBC 15.0 H, RBC 3.65 L, Hgb 9.8 L, Hct 31.8 L, MCV 87.1, MCH 26.8 L, MCHC 30.8 L, RDW Std Deviation 51.6 H, RDW Coeff of Fei 16.1 H, Plt Count 345, MPV 10.0, Immature Gran % (Auto) 2.300 H, Neut % (Auto) 77.7 H, Lymph % (Auto) 11.8 L, [place] % (Auto) 7.7, Eos % (Auto) 0.3, Baso % (Auto) 0.2, Absolute Neuts (auto) 11.6 H, Absolute Lymphs (auto) 1.76, Nucleated RBC % 0 03/11/22 16:35: PT 15.3 H, INR 1.2, APTT 22.1 L 03/11/22 16:35: Sodium 134 L, Potassium 4.7, Chloride 97 L, Carbon Dioxide 28.0, Anion Gap 9, BUN 33 H, Creatinine 1.88 H, Estim Creat Clear Calc 46.92, Est GFR (MDRD) Af Amer 48 L, Est GFR (MDRD) Non-Af 40 L, BUN/Creatinine Ratio 17.6, Glucose 111 H, Calcium 9.8, Total Bilirubin 0.50, AST 51 H, ALT 55, Alkaline Phosphatase 122 H, Total Protein 7.7, Albumin 2.5 L, Globulin 5.2 H, Albumin/Globulin Ratio 0.5 L 03/11/22 16:35: Total Creatine Kinase 57 03/11/22 16:40: Lactic Acid 2.3 H* 03/11/22 16:48: POC Glucose 113 H 03/11/22 16:56: Urine Color Straw, Urine Clarity Turbid, Urine pH 6.0, Ur Specific [place] 1.015, Urine Protein 100 H, Urine Glucose (UA) Normal, Urine Ketones Negative, Urine Occult Blood 150 H, Urine Nitrite Negative, Urine Bilirubin Negative, Urine Urobilinogen Normal, Ur Leukocyte Esterase 500 H, Urine RBC 50-100 SEEN, Urine WBC >100 SEEN, Ur Squamous Epith Cells 5-10 SEEN, Urine Bacteria 4+, Urine Mucus 0 SEEN 03/11/22 18:46: S.aureus Protein A PCR NEGATIVE, MRSA (PCR) Negative 03/11/22 21:10: POC Glucose 210 H 03/11/22 21:55: Lactic Acid 1.2 03/12/22 06:00: WBC 13.5 H, RBC 3.36 L, Hgb 8.8 L, Hct 29.8 L, MCV 88.7, MCH 26.2 L, MCHC 29.5 L, RDW Std Deviation 53.1 H, RDW Coeff of Fei 16.3 H, Plt Count 300, MPV 9.5, Immature Gran % (Auto) 1.600 H, Neut % (Auto) 80.4 H, Lymph % (Auto) 8.2 L, [place] % (Auto) 9.1, Eos % (Auto) 0.4, Baso % (Auto) 0.3, Absolute Neuts (auto) 10.9 H, Absolute Lymphs (auto) 1.10, Nucleated RBC % 0 03/12/22 06:00: Sodium 137, Potassium 2.9 L, Chloride 100, Carbon Dioxide 28.0, Anion Gap 9, BUN 29 H, Creatinine 1.53 H, Estim Creat Clear Calc 59.47, Est GFR (MDRD) Af Amer 61, Est GFR (MDRD) Non-Af 51 L, BUN/Creatinine Ratio 19.0, Glucose 124 H, Calcium 9.2, Phosphorus 4.7, Magnesium 2.1, Total Bilirubin 0.40, AST 49 H, ALT 67 H, Alkaline Phosphatase 139 H, Total Protein 7.0, Albumin 2.1 L, Globulin 4.9 H, Albumin/Globulin Ratio 0.4 L Micro: Microbiology 03/11/22 17:06 Blood Culture (Wb) - Right Forearm Blood Culture - Preliminary 03/11/22 16:40 Blood Culture (Wb) - Right Forearm Blood Culture - Preliminary 03/11/22 16:56 Urine Catheter - Catheter Streptococcus pneumoniae Antigen (M - Final 03/11/22 18:46 Nasal Secretion SARS-CoV-2 & FLU Antigen (Rapid) - Final 03/11/22 16:56 Urine Catheter - Garcia Legionella Antigen - Final 03/11/22 16:59 Nasal Secretion SARS-CoV-2 Antigen (Rapid) - Final ABG Data ABG results: ABG 03/11/22 17:23 Specimen Type ART Sample Site R Radial pH 7.43 Bicarbonate Actual 28.0 H Total CO2 29 Base Excess 4 H O2 Saturation 97 ABG pCO2 42.7 ABG pO2 94 Juvenal Test Positive O2 Delivery Device NRB Liter Flow 10.0 Radiography Diagnostic Testing: Radiology Impression Chest X-Ray 03/11/22 17:00 IMPRESSION: Bibasilar atelectasis without other major interval change. Electronically Signed: Edmundo Garces DO at 17:16 EDT Reading Location ID and State: [address] [place] [address] Tel [phone], Service support , Physical Exam Const alert, oriented x3, no apparent distress and well nourished Constitutional Narrative: Morbidly obese middle-aged white male sitting up in bed on CPAP, appears ill but less toxic, not diaphoretic and fever curve have improved General Appearance: cooperative HEENT normocephalic, head/scalp atraumatic, hearing grossly normal bilaterally and moist oral mucous membranes HEENT Narrative: Mallampati 3-4, no thrush Eyes PERRL, EOMs intact bilaterally and conjunctivae normal Eyes Narrative: No scleral icterus Neck no lymphadenopathy and supple Neck Narrative: Short thick neck, trachea midline Resp normal respiratory effort, no retractions and no use of accessory muscles Resp Narrative: Has improved, patient is currently on CPAP, exam is limited secondary to body habitus however appears to be diminished diffusely with no adventitious sounds noted Auscultation: Negative for crackles, rales, rhonchi or wheezes Cardio regular rate, regular rhythm, S1 normal heart sound, S2 normal heart sound, no murmurs, no rub, no gallops and no clicks GI normal to inspection, nondistended, normoactive bowel sounds, soft to palpation and non-tender Extremity Extremity Narrative: Chronic bilateral lower extremity edema, no clubbing or cyanosis Skin No no wounds, skin turgor normal, no jaundice, no petechiae and no mottling Skin Narrative: Unable to observe chronic sacral wound secondary to body habitus and bed size--> nursing is currently trying to get a bariatric bed Neuro oriented x3 Neuro Narrative: Patient with lateral lower extremity paraplegia, moves upper extremities symmetrically without any deficits Sensorium / Orientation: awake, alert, oriented to person, oriented to place and oriented to time Speech: speech normal Psych affect normal Psych Narrative: Pleasant and appropriate Assessment & Plan Assessment/Plan (1) Sepsis with acute organ dysfunction without septic shock: (2) Urinary tract infection: (3) Acute respiratory failure with hypoxia: (4) Lactic acidosis: (5) ION (acute kidney injury): (6) Leukocytosis: (7) Decubitus ulcer of sacral region, stage 4: PLAN: Plan Sepsis suspected secondary to urinary tract infection -Patient with fever of 104+, tachypnea, tachycardia, leukocytosis, acute respiratory failure with elevated creatinine significant from baseline at 1.88, and a lactic acidosis greater than 2, also presented with encephalopathy however improving upon my exam -COVID and influenza negative -Check strep pneumo and Legionella antigens with respiratory failure -Continue Zosyn -Patient unfortunately had allergic reaction to vancomycin and this was discontinued -1 of 2 blood cultures positive for gram-positive cocci in chains and I suspect this is contaminant and likely staph epi -Continue to follow -Urine cultures pending -Thus far patient has been unable to produce a sputum culture -Continue Garcia cath--> was changed to a temporary catheter on 03/07 to 10/05/2021 by nursing ION -Baseline serum creatinine is 0.5-0.7 -Current serum creatinine is 1.53 down from 1.88 -Continue to hold home Lasix and hydrochlorothiazide -IV fluids with normal saline at 125 cc/h -Repeat lab in a.m. -Continue to hold baseline potassium replacement Acute hypoxic respiratory failure -Patient required 10 L nonrebreather on presentation with a PaO2 of 94 and a sat of 97 on 10 L -Now weaned to 4 L at rest -To need to wean supplemental oxygen as able as patient is not on any supplemental oxygen at baseline -Baseline oxygen on room air however it was not identified but given the PaO2 on 10 L this is indicative of hypoxia -Incentive spirometry -Flu and COVID are negative -Strep pneumo and Legionella antigens are negative -Continue broad-spectrum antibiotics -Thus far patient is unable to produce sputum -No pneumonia seen on chest x-ray however patient appears clinically dry Hypokalemia -60 mEQ p.o. potassium given today -We will hold chronic supplemental potassium given acute kidney injury -Reevaluate in the a.m. with repeat BMP Transaminitis -Mild -Anticipate related to acute infection and sepsis -We will trend -It could also be related to antibiotics Lactic acidosis -Resolved Leukocytosis -Improved -Continue antibiotics Chronic anemia -Slight drop however patient has received quite a bit of IV fluids -No signs of bleeding -Continue to monitor Chronic stage II sacral pressure ulcer -Per patient this has been improving and getting smaller -Cultures pending -MRSA negative -Wound care consultation pending DM-2 -Patient is on U500 insulin 120 units 3 times daily--> we will continue -We will continue home insulin doses with sliding scale -Accu-Cheks 3 times daily and at bedtime Hypertension -Continue to hold home Lasix and hydrochlorothiazide -Hold amlodipine as blood pressures are soft -As needed labetalol available for systolic greater than 160 Hyperlipidemia -Continue home statin Paraplegia -Patient is at baseline Morbid obesity -Complicates treatment, prognosis, outcomes -BMI is 56.8 -Recommend weight loss DVT prophylaxis -Lovenox -SCDs CODE STATUS -Full code as per discussion on admission the emergency department Charges/Coding Visit Charges Inpatient E&M: 55091 Subs Hosp L3
[2022-03-12 09:00] LABS: Bedside Glucose 134 mg/dL (74-106)
[2022-03-12] MEDS: Famotidine 20 MG Tablet PO ×2 (09:32→21:02)
[2022-03-12] MEDS: Multivitamins,Therapeutic Tablet 1 TABLET PO (09:32)
[2022-03-12] MEDS: Senna/Docusate Sodium 1 Tablet 2 TABLET PO ×2 (09:32→21:02)
[2022-03-12] MEDS: Enoxaparin 40 MG/0.4 ML Syringe SC (09:33)
[2022-03-12] MEDS: Insulin U-500 UNITS/ML PEN 120 UNITS SC ×3 (09:33→17:24)
[2022-03-12] MEDS: Gabapentin 100 MG Capsule 200 MG PO ×3 (09:36→17:26)
[2022-03-12] MEDS: LURASIDONE HCL 40 MG TABLET PO (09:36)
[2022-03-12] MEDS: CHLORHEXIDINE GLUC 2% CLOTH 1 EACH TOWELETTE TOPICAL (09:54)
--- NOTE | 2022-03-12 11:50 | ECHOCS_ITS ---
Version 2 Reason For Study: Enterococcus Bacteremia Procedure This was a 2D Doppler, Color Flow transthoracic echocardiogram. The study was technically difficult. Contrast injection was performed. Exam performed portable in patient room. Left Ventricle Normal LV size. Moderate concentric left ventricular hypertrophy. Left ventricular systolic function is normal. The estimated ejection fraction is 60 %. No regional wall motion abnormalities noted. Right Ventricle Normal RV size. Normal systolic function. Atria Normal left atrium. Normal right atrium. Mitral Valve Normal mitral valve. Tricuspid Valve Normal tricuspid valve. Aortic Valve The aortic valve is not well visualized. Pulmonic Valve Normal pulmonic valve. Great Vessels Normal aortic root. The pulmonary artery is normal size. Normal inferior vena cava. Pericardium/Pleural No pericardial effusion. Medication Diluted definity 2.5ml given slow IV push to enhance endocardial definition. MMode/2D Measurements & Calculations LVIDd: 5.1 cm IVSd: 1.4 cm Ao root diam: 3.2 cm LVIDs: 3.6 cm LVPWd: 1.3 cm LA dimension: 4.6 cm FS: 29.2 % LAV(MOD-sp2): 69.0 ml Time Measurements MV dec time: 0.19 sec Doppler Measurements & Calculations MV E max gio: 94.1 cm/sec Lat Peak E' Gio: 15.0 cm/sec Med Peak E' Gio: 14.7 cm/sec MV A max gio: 79.2 cm/sec E/E' lat: 6.3 E/E' med: 6.4 MV E/A: 1.2 MV V2 max: 121.4 cm/sec MV P1/2t max gio: 121.4 cm/sec Ao V2 max: 188.7 cm/sec MV max P.9 mmHg MV P1/2t: 60.7 msec Ao max P.2 mmHg MV V2 mean: 59.8 cm/sec MV mean P.7 mmHg MV dec slope: 586.0 cm/sec2 MV V2 VTI: 28.3 cm MVA(P1/2t): 3.6 cm2 LV V1 max: 122.6 cm/sec PA V2 max: 141.9 cm/sec LV V1 max P.0 mmHg ECHO/Echo Complete W/ Contrast Interpretation Summary Normal LV size. Moderate concentric left ventricular hypertrophy. Left ventricular systolic function is normal. The estimated ejection fraction is 60 %. Contrast injection was performed. There is no evidence of a mass or vegetation. This does not rule out endocarditis. Ordering Physician: Samantha Bradford Referring Physician: Jimmie Rand Performed By: Enrique Gonzalez RCS
[2022-03-12 12:06] LABS: Bedside Glucose 219 mg/dL (74-106)
[2022-03-12] MEDS: Insulin Lispro 100 UNIT/ML INSULN.PEN SC (12:11)
[2022-03-12] MEDS: Glucerna Shake 120 ML LIQUID PO ×2 (17:26→21:04)
[2022-03-12 17:30] LABS: Bedside Glucose 77 mg/dL (74-106)
[2022-03-12 20:26] LABS: Bedside Glucose 145 mg/dL (74-106)
[2022-03-12] MEDS: Doxazosin 1 MG Tablet PO (21:02)
[2022-03-12] MEDS: Fluticasone 0.05% 1 SPRAY NASAL.SRY 2 SPRAY NASAL (21:02)
[2022-03-12] MEDS: Montelukast 10 MG Tablet PO (21:02)
[2022-03-12] MEDS: Atorvastatin Calcium 20 MG Tablet PO (21:02)
[2022-03-13] VITALS (16 sets, daily range): BP systolic 126–154; BP diastolic 61–72; PULSE 75–93; RESP 14–20; TEMP 37.1–38.6; O2SAT 94–100
--- NOTE | 2022-03-13 02:18 | PCM.HOSP.N ---
Hospitalist Note Patient with still intermittent fevers, but otherwise VS stable, labs reviewed. Currently no apparent acute ICU needs thus will transition to PCU status.
[2022-03-13] MEDS: traMADol 50 MG Tablet 100 MG PO (02:31)
[2022-03-13] MEDS: 0.9% Normal Saline 1,000 ML 125 ML IV ×2 (03:44→11:26)
[2022-03-13 08:10] LABS: Bedside Glucose 163 mg/dL (74-106)
[2022-03-13] MEDS: Insulin Lispro 100 UNIT/ML INSULN.PEN SC ×2 (08:29→12:16)
[2022-03-13] MEDS: Insulin U-500 UNITS/ML PEN 120 UNITS SC ×2 (08:30→12:16)
[2022-03-13] MEDS: LURASIDONE HCL 40 MG TABLET PO (09:06)
[2022-03-13] MEDS: Senna/Docusate Sodium 1 Tablet 2 TABLET PO ×2 (09:06→21:42)
[2022-03-13] MEDS: Enoxaparin 40 MG/0.4 ML Syringe SC (09:06)
[2022-03-13] MEDS: Multivitamins,Therapeutic Tablet 1 TABLET PO (09:06)
[2022-03-13] MEDS: Fluticasone 0.05% 1 SPRAY NASAL.SRY 2 SPRAY NASAL ×2 (09:06→21:38)
[2022-03-13] MEDS: Famotidine 20 MG Tablet PO ×2 (09:06→21:41)
[2022-03-13] MEDS: Acetaminophen 325 MG Tablet 650 MG PO ×3 (09:10→23:39)
[2022-03-13] MEDS: Gabapentin 100 MG Capsule 200 MG PO ×3 (09:10→16:52)
[2022-03-13] MEDS: Glucerna Shake 120 ML LIQUID PO ×3 (09:25→21:29)
[2022-03-13] MEDS: DAKIN'S SOL HALF STRENGTH (=0.25%) 1 APPLIC TOPICAL ×2 (10:36→21:41)
--- NOTE | 2022-03-13 11:09 | PN.HOSP_ITS ---
Subjective Subjective Patient is stating he is better overall. Was still having fevers last night however defervesced this morning with 98.7 this morning. Heart rates are better and blood pressures are normalizing. Objective Data Objective Data Vital Signs: Vital Signs Temp Pulse Resp BP Pulse Ox O2 Del Method O2 Flow Rate 98.7 F 80 18 132/63 H 95 Nasal Cannula 2 03/13/22 09:01 03/13/22 09:01 03/13/22 09:01 03/13/22 09:01 03/13/22 09:01 03/13/22 09:30 03/13/22 09:30 FiO2 30 03/13/22 04:29 Oxygen Flow Rate (L/min) 2 Oxygen Delivery Method Nasal Cannula Weight: 184.6 kg Body Mass Index (BMI) 57.1 Intake & Output: Intake and Output for Last 24 Hours 03/11/22 03/12/22 03/13/22 23:59 23:59 23:59 Intake Total 2819.17 / 2819.17 4620.83 / 5420.83 1800 / 1800 Output Total 850 / 850 6300 / 7600 1800 / 1800 Balance 1969.17 / 1969.17 -1679.17 / -2179.17 0 / 0 Lab / Micro Data Result Diagrams: 03/12/22 06:00 03/12/22 06:00 Labs: Laboratory Results - last 24 hr 03/12/22 11:46: POC Glucose 219 H 03/12/22 17:12: POC Glucose 77 03/12/22 20:07: POC Glucose 145 H 03/13/22 07:48: POC Glucose 163 H Micro: Microbiology 03/11/22 16:56 Urine Catheter - Catheter Urine Culture - Final Enterococcus faecalis 03/11/22 16:40 Blood Culture (Wb) - Right Forearm Bacteria Detection (PCR) - Final Enterococcus faecalis 03/11/22 16:40 Blood Culture (Wb) - Right Forearm Blood Culture - Preliminary Enterococcus faecalis 03/11/22 17:06 Blood Culture (Wb) - Right Forearm Blood Culture - Prelim inary 03/11/22 20:30 Wound - Sacral Wound Culture - Preliminary Gram positive organism 03/11/22 16:56 Urine Catheter - Catheter Streptococcus pneumoniae Antigen (M - Final 03/11/22 18:46 Nasal Secretion SARS-CoV-2 & FLU Antigen (Rapid) - Final 03/11/22 16:56 Urine Catheter - Garcia Legionella Antigen - Final 03/11/22 16:59 Nasal Secretion SARS-CoV-2 Antigen (Rapid) - Final Physical Exam Const alert, oriented x3, no apparent distress and well nourished Constitutional Narrative: Morbidly obese middle-aged white male sitting up in bed on CPAP, sitting up and watching television, appears comfortable General Appearance: cooperative HEENT normocephalic, head/scalp atraumatic, hearing grossly normal bilaterally and moist oral mucous membranes Resp normal respiratory effort, no retractions and no use of accessory muscles Resp Narrative: Has improved, patient is currently on CPAP, exam is limited secondary to body habitus however appears to be diminished diffusely with no adventitious sounds noted Auscultation: Negative for crackles, rales, rhonchi or wheezes Cardio regular rate, regular rhythm, S1 normal heart sound, S2 normal heart sound, no murmurs, no rub, no gallops and no clicks GI normal to inspection, nondistended, normoactive bowel sounds, soft to palpation and non-tender Extremity Extremity Narrative: Chronic bilateral lower extremity edema, no clubbing or cyanosis Skin No no wounds, skin turgor normal, no jaundice, no petechiae and no mottling Skin Narrative: Unable to observe chronic sacral wound secondary to body habitus and bed size--> nursing is currently trying to get a bariatric bed Neuro oriented x3 and CN's II-XII intact bilaterally Neuro Narrative: Patient with lateral lower extremity paraplegia, moves upper extremities symmetrically without any deficits Sensorium / Orientation: awake, alert, oriented to person, oriented to place and oriented to time Speech: speech normal Psych affect normal Psych Narrative: Pleasant and appropriate Assessment & Plan Assessment/Plan (1) Sepsis with acute organ dysfunction without septic shock: (2) Urinary tract infection: (3) Acute respiratory failure with hypoxia: (4) Lactic acidosis: (5) ION (acute kidney injury): (6) Leukocytosis: (7) Decubitus ulcer of sacral region, stage 4: PLAN: Plan Sepsis suspected secondary to Enterococcus faecalis bacteremia due to urinary tract infection and related to chronic Garcia catheter -Patient with fever of 104+, tachypnea, tachycardia, leukocytosis, acute respiratory failure with elevated creatinine significant from baseline at 1.88, and a lactic acidosis greater than 2, also presented with encephalopathy however improving upon my exam -Patient was cultured in the emergency department -We will check COVID-19 and flu -Check strep pneumo and Legionella antigens with respiratory failure -Continue Zosyn--> organisms are sensitive to ampicillin--> wound cultures are still pending and will narrow once able -Vancomycin discontinued secondary to reaction and patient clinically improved therefore do not think we need to replace this -Garcia catheter changed on the day of admission -Echocardiogram is pending -Repeat blood cultures pending -Infectious disease consult pending ION -Baseline serum creatinine is 0.5-0.7 -Current serum creatinine unknown--> a.m. labs pending -Hold home Lasix and hydrochlorothiazide -Discontinue IV fluids -Change Garcia catheter -Hold baseline potassium replacement Acute hypoxic respiratory failure -Patient requiring 10 L nonrebreather on presentation with a PaO2 of 94 and a sat of 97 on 10 L -Baseline oxygen on room air however it was not identified but given the PaO2 on 10 L this is indicative of hypoxia -Supplemental oxygen has been weaned to 2 L nasal cannula -Continue to wean as able -Incentive spirometry -COVID and flu antigens negative -strep pneumo and Legionella antigens negative -No pneumonia seen on chest x-ray however patient appears clinically dry Lactic acidosis -Resolved Leukocytosis -Improved on lab yesterday however a.m. lab today is still pending Chronic stage II sacral pressure ulcer -Per patient this has been improving and getting smaller -Wound culture with growth awaiting finalization -MRSA was negative -Wound care consultation pending DM-2 -Patient is on U500 insulin -Discussed with patient he anticipates his oral intake should be comparable to home -We will continue home insulin doses with sliding scale -Accu-Cheks 3 times daily and at bedtime Hypertension -Hold home Lasix and hydrochlorothiazide -Continue home amlodipine -As needed labetalol available for systolic greater than 160 Hyperlipidemia -Continue home statin Paraplegia -Patient is at baseline Morbid obesity -Complicates treatment, prognosis, outcomes -BMI is 56.8 -Recommend weight loss DVT prophylaxis -Lovenox -SCDs CODE STATUS -Full code as per discussion on admission the emergency department Charges/Coding Visit Charges Inpatient E&M: 32264 Subs Hosp L2
--- NOTE | 2022-03-13 11:09 | WOUNDNOTE ---
wound photo: sacral/buttock
[2022-03-13 11:40] LABS: Bedside Glucose 223 mg/dL (74-106)
[2022-03-13 12:16] LABS: Absolute Lymphocyte Count 1.03 X10^3/uL (0.83-4.51); Absolute Neutrophil Count 5.7 X10^3/uL (2.0-7.7); Basophil# 0.03 X10^3/uL; Basophil% 0.4 % (0-1); Eosinophil# 0.21 X10^3/uL; Eosinophils% 2.7 % (0-5); Hematocrit 25.6 % (40-54); Hemoglobin 8.4 g/dL (13.0-16.5); Lymphocyte # 1.03 X10^3/ul (0.83-4.51); Lymphocyte % 13.3 % (19-41); Mean Corp Hgb Conc 32.8 g/dL (32-36); Mean Corpuscular Hgb 27.7 pg (27.0-32.0); Mean Corpuscular Volume 84.5 fL (80-94); Mean Platelet Vol. 9.8 fl (6.2-12.0); Monocyte# 0.61 X10^3/uL; Monocyte% 7.9 % (0-10); NRBC Flagged by Analyzer 0 % (0-5); Neutrophil % 73.9 % (47-70); Platelet Count 290 K/mm3 (150-450); RBC Distribution Width SD 49.9 fl (35.1-43.9); Red Blood Count 3.03 M/mm3 (4.6-6.2); White Blood Count 7.7 K/mm3 (4.4-11.0)
--- NOTE | 2022-03-13 12:40 | CON.PCM.ID_ITS ---
Assessment & Plan Assessment/Plan (1) Sepsis with acute organ dysfunction without septic shock: PLAN: Due to enterococcus bacteremia from urinary source - paraplegic with catheter in place. On vanc/zosyn. ION and lactic acidosis improved. Sacral ulcer, wound care following. Cont vanc/zosyn for now. No veg seen on TTE. Will follow, thank you (2) Bacteremia due to Enterococcus: HPI Consult Data Date of Consult: 03/13/22 HPI Narrative Reason for Consultation: bacteremia HPI Narrative: SERENITY MACHADO, is a 51 M with paraplegia, mckinney in for about 8 weeks, presented 03/11 with 2-3 days of progressive fever, chills, weakness, fatigue, altered mental status. Had been on cipro 1-2 weeks ago for uti. Came to ED, fever of 104.7, admitted on vanc/zosyn, feeling better today. Mild headache, no abd pain. Full ROS performed and neg except as noted above. [facility] Medical History Acute respiratory failure, unspecified whether with hypoxia or hypercapnia Alcohol abuse Anemia Anxiety and depression Anxiety disorder Avelar's palsy Blister (nonthermal), right foot, initial encounter Chronic ulcer of right foot with fat layer exposed CPAP (continuous positive airway pressure) dependence Decubitus ulcer, buttock Depression Diabetes DVT (deep venous thrombosis) Edema of both lower extremities Essential (primary) hypertension Former smoker Headache Hemoglobin A1c 8.0% or greater History of foot ulcer History of stress test history of tooth removal Hyperlipidemia Incontinence 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 Insomnia Left shoulder pain half-way (current) use of anticoagulants half-way (current) 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 Morbid (severe) obesity due to excess calories Neuromuscular dysfunction of bladder, unspecified Neuropathic pain Obesities, morbid Obstructive sleep apnea On home oxygen therapy Osteoporosis Other seasonal allergic rhinitis Paraplegia Pressure sore of left ischium, unstageable Pressure ulcer Pressure ulcer of left buttock, unstageable Pressure ulcer of right buttock, unstageable Pressure ulcer of sacral region, unstageable Primary osteoarthritis, left shoulder Sacral wound Self-catheterizes urinary bladder Sepsis Skin necrosis Skin ulcer of left hip Skin ulcer of right hip Sleep apnea Stage II pressure ulcer Stage II pressure ulcer of buttock Type 2 diabetes mellitus with diabetic polyneuropathy Wound infection Home Medications male urinal #1 ea 08/23/18 [Rx Last Taken Unknown] wash basin #1 ea 03/08/19 [Rx Last Taken Unknown] gauze bandage 4 X 4 (Curad Gauze Pad) #2,000 ea 04/22/19 [Rx Last Taken Unknown] shower chair bariatric #1 ea 04/29/19 [Rx Last Taken Unknown] lancets 28 gauge (FreeStyle Lancets) #200 ea 07/04/19 [Rx Last Taken Unknown] hydrocortisone 2.5 % topical ointment 1 applic topical BID PRN rash #454 grams 07/01/20 [Rx Last Taken 08/18/21] OneTouch Verio Flex meter (blood-glucose meter) #1 ea 07/16/20 [Rx Last Taken Unknown] lancets 33 gauge (OneTouch Delica Lancets) #100 ea 07/16/20 [Rx Last Taken Unknown] Wood transfer board, 32 inches in length 10 inches wide 1/2 inch thick #1 ea 09/06/20 [Rx Last Taken Unknown] lancets 33 gauge (OneTouch Delica Plus Lancet) #100 ea 09/16/20 [Rx Last Taken Unknown] compr.stocking,thigh,reg,large #6 ea 11/11/20 [Rx Last Taken Unknown] compress.stocking,knee,reg,lrg #6 ea 11/12/20 [Rx Last Taken Unknown] cpap mask #1 ea 07/14/21 [Rx Last Taken Unknown] atorvastatin 20 mg tablet 20 mg PO QHS cholesterol lowering 08/29/21 [History Last Taken 08/28/21] hydrochlorothiazide 25 mg tablet 25 mg PO DAILY water pill, htn 08/29/21 [History Last Taken 08/29/21] doxazosin 1 mg tablet 1 mg PO QHS BPH #90 tabs 11/09/21 [Rx Last Taken Unknown] pen needle, diabetic 32 gauge x 5/32 (BD Ultra-Fine Jenny Pen Needle) #100 ea 12/02/21 [Rx Last Taken Unknown] OneTouch Verio test strips (blood sugar diagnostic) #100 ea 12/22/21 [Rx Last Taken Unknown] acetaminophen 325 mg capsule 650 mg PO Q4H PRN pain 02/28/22 [History Last Taken Unknown] acetaminophen 500 mg capsule 1,000 mg PO TID PRN pain 02/28/22 [History Last Morgan en Unknown] aluminum-magnesium hydroxide 200 mg-200 mg/5 mL oral suspension 30 ml PO Q4H PRN GI distress 02/28/22 [History Last Taken Unknown] amlodipine 10 mg tablet 10 mg PO DAILY 02/28/22 [History Last Taken Unknown] ascorbate calcium (vitamin C) 500 mg tablet 500 mg PO DAILY 02/28/22 [History La st Taken Unknown] bisacodyl 10 mg rectal suppository 10 mg UT DAILY PRN Constipation 02/28/22 [History Last Taken Unknown] dextrose 40 % oral gel (Glucose Gel) 10 g PO Q15M PRN 02/28/22 [History Last Taken Unknown] dulaglutide 4.5 mg/0.5 mL subcutaneous pen injector (Trulicity) 4.5 mg subcut .QTH blood sugar 02/28/22 [History Last Taken Unknown] enoxaparin 40 mg/0.4 mL subcutaneous syringe 40 mg subcut DAILY 02/28/22 [History Last Taken Unknown] famotidine 20 mg tablet 20 mg PO BID 02/28/22 [History Last Taken Unknown] fluticasone propionate 50 mcg/actuation nasal spray,suspension 2 spray intr anasal BID 02/28/22 [History Last Taken Unknown] furosemide 40 mg tablet 40 mg PO BID 02/28/22 [History Last Taken Unknown] gabapentin 400 mg capsule 400 mg PO 4X/DAY 02/28/22 [History Last Taken Unknown] glucagon HCl 1 mg solution for injection (Glucagon (HCl) Emergency Kit) 1 mg subcut Q20M PRN Hypoglycemia 02/28/22 [History Last Taken Unknown] guaifenesin 100 mg/5 mL oral liquid 200 mg PO Q4H PRN cough 02/28/22 [History Last Taken Unknown] insulin lispro 100 unit/mL subcutaneous solution (Humalog U-100 Insulin) 1 sliding scale dose subcut USEASDIRECTD 02/28/22 [History Last Taken Unknown] insulin lispro 100 unit/mL subcutaneous solution (Humalog U-100 Insulin) 110 unit subcut TID 02/28/22 [History Last Taken Unknown] lurasidone 40 mg tablet 40 mg PO QAM 02/28/22 [History Last Taken Unknown] magnesium hydroxide 400 mg/5 mL oral suspension (Milk of Magnesia) 30 ml PO DAILY PRN constipation 02/28/22 [History Last Taken Unknown] montelukast 10 mg tablet (Singulair) 10 mg PO QHS 02/28/22 [History Last Taken Unknown] multivitamin 1 tab PO DAILY 02/28/22 [History Last Taken Unknown] potassium chloride 20 mEq tablet,extended release 20 meq PO BID 02/28/22 [History Last Taken Unknown] sennosides 8.6 mg-docusate sodium 50 mg tablet (Senna with Docusate Sodium) 2 tab-cap PO BID 02/28/22 [History Last Taken Unknown] sodium phosphates 19 gram-7 gram/118 mL enema (Fleet Enema) 118 ml UT DAILY PRN constipation 02/28/22 [History Last Taken Unknown] tramadol 100 mg tablet 100 mg PO Q6H PRN pain 02/28/22 [History Last Taken Unknown] Lactobacillus rhamnosus GG 10 billion cell capsule (Culturelle) 1 cap PO DAILY 03/11/22 [History Last Taken Unknown] ciprofloxacin HCl 500 mg tablet (Cipro) 500 mg PO BID 03/11/22 [History Last Taken Unknown] Allergy/AdvReac Type Severity Reaction Status Date / Time metformin AdvReac Unknown unknown Verified 03/11/22 16:26 Family History Father Heart disease Myocardial infarction, Onset Age: 64 Hyperlipemia Mother Heart disease Hypertension Hyperlipemia Uncle Heart disease Grandfather Diabetes Grandmother Diabetes Surgical History History of back surgery Social History Smoking Status: Former smoker alcohol intake: former substance use type: does not use what type of physical activity do you participate in: none Physical Exam Const alert, oriented x3 and no apparent distress General Appearance: cooperative HEENT normocephalic and head/scalp atraumatic Eyes PERRL and EOMs intact bilaterally Neck supple and No nodes Resp normal air movement and clear to auscultation bilaterally Cardio regular rate and regular rhythm GI soft to palpation, non-tender and non-distended Extremity General Extremity: edema Skin Skin Narrative: reviewed photo sacral wound Neuro CN's II-XII intact bilaterally Neuro Narrative: paraplegic Lab / Micro Data Attestation: I reviewed the patient's lab results. Result Diagrams: 03/13/22 11:52 03/12/22 06:00 Labs: Laboratory Results - last 24 hr 03/12/22 17:12: POC Glucose 77 03/12/22 20:07: POC Glucose 145 H 03/13/22 07:48: POC Glucose 163 H 03/13/22 11:20: POC Glucose 223 H 03/13/22 11:52: WBC 7.7, RBC 3.03 L, Hgb 8.4 L, Hct 25.6 L, MCV 84.5, MCH 27.7, MCHC 32.8 D, RDW Std Deviation 49.9 H, RDW Coeff of Fei 16.0 H, Plt Count 290, MPV 9.8, Immature Gran % (Auto) 1.800 H, Neut % (Auto) 73.9 H, Lymph % (Auto) 13.3 L, [place] % (Auto) 7.9, Eos % (Auto) 2.7, Baso % (Auto) 0.4, Absolute Neuts (auto) 5.7, Absolute Lymphs (auto) 1.03, Nucleated RBC % 0 Micro: Microbiology 03/11/22 20:30 Wound - Sacral Wound Culture - Final Coag Negative Staph Coag Negative Staph#2 03/11/22 16:56 Urine Catheter - Catheter Urine Culture - Final Enterococcus faecalis 03/11/22 16:40 Blood Culture (Wb) - Right Forearm Bacteria Detection (PCR) - Final Enterococcus faecalis 03/11/22 16:40 Blood Culture (Wb) - Right Forearm Blood Culture - Preliminary Enterococcus faecalis 03/11/22 17:06 Blood Culture (Wb) - Right Forearm Blood Culture - Preliminary Radiology Impression Echocardiogram 03/12/22 11:50 Interpretation Summary Normal LV size. Moderate concentric left ventricular hypertrophy. Left ventricular systolic function is normal. The estimated ejection fraction is 60 %. Contrast injection was performed. There is no evidence of a mass or vegetation. This does not rule out endocarditis. Ordering Physician: Samantha Bradford Referring Physician: Jimmie Rand Performed By: nErique Gonzalez RCS
[2022-03-13 13:39] LABS: Anion Gap 9 (5-15); BUN 19 mg/dL (7-18); BUN/Creat Ratio 19.5 RATIO (10-20); Calcium,Total 8.9 mg/dL (8.5-10.1); Chloride 102 mmol/L (98-107); Creatinine, Serum 0.98 mg/dL (0.70-1.30); EST Glomerular Filtration Rate 85 mL/min (>60); Est Glom Filt Rate - Afr Amer 103 mL/min (>60); Estimated Creatinine Clearance 92.84 ml/min; Glucose 209 mg/dL (74-106); Sodium Level 139 mmol/L (136-145)
[2022-03-13] MEDS: Potassium Chloride Oral Tablet 20 MEQ 60 MEQ PO (14:47)
[2022-03-13 17:06] LABS: Bedside Glucose 97 mg/dL (74-106)
[2022-03-13] MEDS: 0.9% Saline Lock 10 ML Syringe IV (21:39)
[2022-03-13] MEDS: Atorvastatin Calcium 20 MG Tablet PO (21:41)
[2022-03-13] MEDS: Doxazosin 1 MG Tablet PO (21:41)
[2022-03-13] MEDS: Montelukast 10 MG Tablet PO (21:42)
[2022-03-13 23:31] LABS: Bedside Glucose 210 mg/dL (74-106)
[2022-03-14] VITALS (13 sets, daily range): BP systolic 119–156; BP diastolic 62–71; PULSE 73–89; RESP 18; TEMP 36.9–37.6; O2SAT 95–99
[2022-03-14 06:24] LABS: Absolute Neutrophil Count 4.9 X10^3/uL (2.0-7.7); Basophil# 0.05 X10^3/uL; Basophil% 0.7 % (0-1); Eosinophil# 0.45 X10^3/uL; Hematocrit 27.7 % (40-54); Hemoglobin 8.6 g/dL (13.0-16.5); Mean Corpuscular Hgb 26.2 pg (27.0-32.0); Mean Corpuscular Volume 84.5 fL (80-94); Mean Platelet Vol. 9.9 fl (6.2-12.0); NRBC Flagged by Analyzer 0 % (0-5); Neutrophil # 4.89 X10^3/uL (2.7-7.7); Neutrophil % 65.4 % (47-70); Platelet Count 325 K/mm3 (150-450); RBC Distribution Width CV 16.2 % (11.6-14.6); RBC Distribution Width SD 50.4 fl (35.1-43.9); Red Blood Count 3.28 M/mm3 (4.6-6.2); White Blood Count 7.5 K/mm3 (4.4-11.0)
[2022-03-14 06:25] LABS: Bedside Glucose 156 mg/dL (74-106)
[2022-03-14 06:47] LABS: Anion Gap 6 (5-15); BUN 20 mg/dL (7-18); Calcium,Total 9.2 mg/dL (8.5-10.1); Chloride 107 mmol/L (98-107); EST Glomerular Filtration Rate 107 mL/min (>60); Est Glom Filt Rate - Afr Amer 130 mL/min (>60); Estimated Creatinine Clearance 113.73 ml/min; Glucose 168 mg/dL (74-106); Potassium 3.6 mmol/L (3.5-5.1); Sodium Level 142 mmol/L (136-145)
[2022-03-14] MEDS: Multivitamins,Therapeutic Tablet 1 TABLET PO (08:27)
[2022-03-14] MEDS: LURASIDONE HCL 40 MG TABLET PO (08:27)
[2022-03-14] MEDS: Fluticasone 0.05% 1 SPRAY NASAL.SRY 2 SPRAY NASAL ×2 (08:27→21:06)
[2022-03-14] MEDS: Gabapentin 100 MG Capsule 200 MG PO ×3 (08:27→16:20)
[2022-03-14] MEDS: Enoxaparin 40 MG/0.4 ML Syringe SC (08:28)
[2022-03-14] MEDS: Famotidine 20 MG Tablet PO ×2 (08:28→21:07)
[2022-03-14] MEDS: Senna/Docusate Sodium 1 Tablet 2 TABLET PO ×2 (08:29→21:08)
[2022-03-14] MEDS: Insulin Lispro 100 UNIT/ML INSULN.PEN SC ×3 (08:29→16:20)
[2022-03-14] MEDS: Insulin U-500 UNITS/ML PEN 60 UNITS SC ×3 (08:30→16:21)
--- NOTE | 2022-03-14 08:56 | NURSING ---
Patient O2 Saturation 99% on 2L, patient does not wear home O2, weaned to RA and oxygen saturation remained above 96%
[2022-03-14 09:05] LABS: Bedside Glucose 178 mg/dL (74-106)
[2022-03-14] MEDS: DAKIN'S SOL HALF STRENGTH (=0.25%) 1 APPLIC TOPICAL ×2 (09:11→21:07)
--- NOTE | 2022-03-14 09:47 | WOUNDNOTE ---
Manually disimpacted patient as ordered. large formed brown BM noted. pt tolerated well.
--- NOTE | 2022-03-14 10:01 | CASEMGMT ---
Physician would like to discharge patient tomorrow. Patient is insistent on going home at discharge and not back to the SNF. Patient does have a case making machine operator through [facility] [place], [place] ([phone]). EDGAR called [place] at [facility] and left her a voice mail. Suyapa VASQUEZ
--- NOTE | 2022-03-14 10:31 | CASEMGMT ---
EDGAR called [facility] Home coverage line and they do not have patient in their system. SW will check with patient to see if he has made any contact with his manager rfid. Suyapa VASQUEZ
--- NOTE | 2022-03-14 11:08 | CASEMGMT ---
EDGAR met with patient. Introduced self as well as role at [facility]. SW asked patient if he still has [place] as his Sap Specialist. Patient said he called jhon and requested her again. It sounds like patient does not currently have a disease case manager as he was in the long term for an extended amount of time. SW told patient that it is unlikely they will be able to get aides arranged by tomorrow as this is when physician would like to discharge him. Patient said he called [facility] and they told him they would have an aide for him by the . Patient gave EDGAR permission to call [facility]. EDGAR received a voice mail from Edwina with [facility]. Edwina said she is no longer patient's disease case manager as he was in the long term for 90 days and he has been disenrolled. A new referral will need to be made to get patient re-enrolled in program. EDGAR called [facility] and spoke with Grace on the coverage line and a referral will need to be made to get patient re-enrolled. Grace said this will not be a fast process. EDGAR will talk with patient. Suyapa VASQUEZ
--- NOTE | 2022-03-14 11:23 | PN.ID_ITS ---
Physical Exam Narrative Feeling better, wants to go home, no fever Const alert and no apparent distress Resp normal air movement and clear to auscultation bilaterally Cardio regular rate and regular rhythm GI soft to palpation, non-tender and non-distended Skin Skin Narrative: no new rash ID ID: Route of nutrition/ use of supplements: [] Nutritional Intake: [] IV Site: [] Garcia Catheter: [] Assessment & Plan Assessment/Plan (1) Sepsis with acute organ dysfunction without septic shock: PLAN: Due to enterococcus bacteremia from urinary source - paraplegic with catheter in place. Much improved on zosyn. Sacral wound, does not appear to be purulent/inflammed. Ok for discharge with 7 more days amoxicillin 500mg tid. Will follow, d/w immigration case manager (2) Bacteremia due to Enterococcus:
[2022-03-14] MEDS: Glucerna Shake 120 ML LIQUID PO ×3 (11:46→21:06)
--- NOTE | 2022-03-14 11:57 | PCM.PN.HOSP ---
Subjective Subjective Patient sees me feeling much better overall. Indicates he typically straight caths at home and we therefore discussed leaving his Agrcia out at discharge and having him straight cath as he was previously. No issues overnight. Wound nurse at bedside and states his wound is healing nicely when compared to previous evaluations done by her. Patient reiterates that his plan is to go home at discharge however after discussion with case management he has none of his aids set up at discharge and this will need to be reestablished as he has been at the SNF for about 3 months at this time. Case management was going to discussed with him the plan to get him back to [facility], [place] and then discharged home once this can all be arranged. Anticipate discharge within the next 24 hours. Objective Data Objective Data Vital Signs: Vital Signs Temp Pulse Resp BP Pulse Ox O2 Del Method O2 Flow Rate 98.7 F 77 18 148/62 H 99 Nasal Cannula 2 03/14/22 08:20 03/14/22 08:20 03/14/22 08:20 03/14/22 08:20 03/14/22 08:52 03/14/22 08:52 03/14/22 08:52 FiO2 30 03/13/22 04:29 Oxygen Flow Rate (L/min) 2 Oxygen Delivery Method Nasal Cannula Weight: 185.3 kg Body Mass Index (BMI) 57.1 Intake & Output: Intake and Output for Last 24 Hours 03/12/22 03/13/22 03/14/22 23:59 23:59 23:59 Intake Total 4620.83 / 5420.83 3438.42 / 3638.42 700 / 700 Output Total 6300 / 7600 3950 / 4250 900 / 900 Balance -1679.17 / -2179.17 -511.58 / -611.58 -200 / -200 Lab / Micro Data Result Diagrams: 03/14/22 05:40 03/14/22 05:40 Labs: Laboratory Results - last 24 hr 03/13/22 11:52: WBC 7.7, RBC 3.03 L, Hgb 8.4 L, Hct 25.6 L, MCV 84.5, MCH 27.7, MCHC 32.8 D, RDW Std Deviation 49.9 H, RDW Coeff of Fei 16.0 H, Plt Count 290, MPV 9.8, Immature Gran % (Auto) 1.800 H, Neut % (Auto) 73.9 H, Lymph % (Auto) 13.3 L, [place] % (Auto) 7.9, Eos % (Auto) 2.7, Baso % (Auto) 0.4, Absolute Neuts (auto) 5.7, Absolute Lymphs (auto) 1.03, Nucleated RBC % 0 03/13/22 11:52: Sodium 139, Potassium 3.0 L, Chloride 102, Carbon Dioxide 28.0, Anion Gap 9, BUN 19 H, Creatinine 0.98, Estim Creat Clear Calc 92.84, Est GFR (MDRD) Af Amer 103, Est GFR (MDRD) Non-Af 85, BUN/Creatinine Ratio 19.5, Glucose 209 H, Calcium 8.9 03/13/22 16:41: POC Glucose 97 03/13/22 21:20: POC Glucose 210 H 03/14/22 05:40: WBC 7.5, RBC 3.28 L, Hgb 8.6 L, Hct 27.7 L, MCV 84.5, MCH 26.2 L, MCHC 31.0 L D, RDW Std Deviation 50.4 H, RDW Coeff of Fei 16.2 H, Plt Count 325, MPV 9.9, Immature Gran % (Auto) 3.900 H, Neut % (Auto) 65.4, Lymph % (Auto) 16.0 L, [place] % (Auto) 8.0, Eos % (Auto) 6.0 H, Baso % (Auto) 0.7, Absolute Neuts (auto) 4.9, Absolute Lymphs (auto) 1.20, Nucleated RBC % 0 03/14/22 05:40: Sodium 142, Potassium 3.6, Chloride 107, Carbon Dioxide 29.0, Anion Gap 6, BUN 20 H, Creatinine 0.80, Estim Creat Clear Calc 113.73, Est GFR (MDRD) Af Amer 130, Est GFR (MDRD) Non-Af 107, BUN/Creatinine Ratio 25.0 H, Glucose 168 H, Calcium 9.2 03/14/22 06:04: POC Glucose 156 H 03/14/22 08:19: POC Glucose 178 H Micro: Microbiology 03/11/22 16:40 Blood Culture (Wb) - Right Forearm Bacteria Detection (PCR) - Final Enterococcus faecalis 03/11/22 16:40 Blood Culture (Wb) - Right Forearm Blood Culture - Preliminary Enterococcus faecalis 03/11/22 20:30 Wound - Sacral Wound Culture - Final Coag Negative Staph Coag Negative Staph#2 03/11/22 16:56 Urine Catheter - Catheter Urine Culture - Final Enterococcus faecalis 03/11/22 17:06 Blood Culture (Wb) - Right Forearm Blood Culture - Preliminary 03/11/22 16:56 Urine Catheter - Catheter Streptococcus pneumoniae Antigen (M - Final 03/11/22 18:46 Nasal Secretion SARS-CoV-2 & FLU Antigen (Rapid) - Final 03/11/22 16:56 Urine Catheter - Garcia Legionella Antigen - Final 03/11/22 16:59 Nasal Secretion SARS-CoV-2 Antigen (Rapid) - Final Physical Exam Const alert, oriented x3, no apparent distress and well nourished Constitutional Narrative: Morbidly obese middle-aged white male sitting up in bed, wound nurse at bedside, sitting up and watching television, appears comfortable General Appearance: cooperative HEENT normocephalic, head/scalp atraumatic, hearing grossly normal bilaterally and moist oral mucous membranes HEENT Narrative: Mallampati 3-4, dentition is fair, no thrush Resp normal respiratory effort, no retractions and no use of accessory muscles Resp Narrative: Currently on 2 L nasal cannula Auscultation: Negative for crackles, rales, rhonchi or wheezes Cardio regular rate, regular rhythm, S1 normal heart sound, S2 normal heart sound, no murmurs, no rub, no gallops and no clicks GI normal to inspection, nondistended, normoactive bowel sounds, soft to palpation and non-tender GI Narrative: Large protuberant abdomen Extremity Extremity Narrative: Chronic bilateral lower extremity edema, no clubbing or cyanosis Skin No no wounds, skin turgor normal, no jaundice, no petechiae and no mottling Skin Narrative: Pictures of sacral wound noted Neuro oriented x3 and CN's II-XII intact bilaterally Neuro Narrative: Patient with lateral lower extremity paraplegia, moves upper extremities symmetrically without any deficits Sensorium / Orientation: awake, alert, oriented to person, oriented to place and oriented to time Speech: speech normal Psych affect normal Psych Narrative: Pleasant and appropriate Assessment & Plan Assessment/Plan (1) Sepsis with acute organ dysfunction without septic shock: (2) Urinary tract infection: (3) Acute respiratory failure with hypoxia: (4) Lactic acidosis: (5) ION (acute kidney injury): (6) Leukocytosis: (7) Decubitus ulcer of sacral region, stage 4: (8) Bacteremia due to Enterococcus: PLAN: Plan Sepsis suspected secondary to Enterococcus faecalis bacteremia due to urinary tract infection and related to chronic Garcia catheter -Patient with fever of 104+, tachypnea, tachycardia, leukocytosis, acute respiratory failure with elevated creatinine significant from baseline at 1.88, and a lactic acidosis greater than 2, also presented with encephalopathy however improving upon my exam -COVID-19 and flu negative -Check strep pneumo and Legionella antigens with respiratory failure -Continue Zosyn -Garcia catheter changed on the day of admission -Will plan to discontinue Garcia entirely at discharge as patient had been doing straight cathing previously -Echocardiogram without any vegetations -Repeat blood cultures pending result from 03/13/2022 -Infectious disease following-appreciate input -We do anticipate that the patient will be able to be discharged on oral therapy -Anticipate discharge back to skilled facility in the next 24 hours ION -Baseline serum creatinine is 0.5-0.7 -Resolved with a.m. serum creatinine 0.8 -Restart home Lasix -Restart potassium replacement Acute hypoxic respiratory failure -Patient requiring 10 L nonrebreather on presentation with a PaO2 of 94 and a sat of 97 on 10 L -Baseline oxygen on room air however it was not identified but given the PaO2 on 10 L this is indicative of hypoxia -Supplemental oxygen has been weaned to 2 L nasal cannula -Continue to wean as able--> we will trial off oxygen today -Incentive spirometry -COVID and flu antigens negative -strep pneumo and Legionella antigens negative -No pneumonia seen on chest x-ray however patient appears clinically dry -Anticipate his acute hypoxic respiratory failure was most likely related to his sepsis on presentation Leukocytosis -Resolved Chronic stage II sacral pressure ulcer -Per patient this has been improving and getting smaller -Wound nurse agrees -Patient has refused diverting ostomy previously -Wound culture shows 2 species of coag negative staph -Wound care following DM-2 -Patient is on U500 insulin -Home dose has been cut by 50% as his blood sugars were on the low end of normal -Continue 60 units for now and monitor--> uptitrate slowly if needed -We will continue home insulin doses with sliding scale -Accu-Cheks 3 times daily and at bedtime Hypertension -Restart home Lasix -We will discontinue hydrochlorothiazide entirely at discharge as he is already on a diuretic -Restart home amlodipine as blood pressures are normalizing -As needed labetalol available for systolic greater than 160 Hyperlipidemia -Continue home statin Paraplegia -Patient is at baseline Morbid obesity -Complicates treatment, prognosis, outcomes -BMI is 56.8 -Recommend weight loss DVT prophylaxis -Lovenox -SCDs CODE STATUS -Full code as per discussion on admission the emergency department Charges/Coding Visit Charges Inpatient E&M: 41636 Subs Hosp L2
[2022-03-14 12:10] LABS: Bedside Glucose 204 mg/dL (74-106)
[2022-03-14] MEDS: amLODIPine 10 MG Tablet PO (13:29)
--- NOTE | 2022-03-14 15:51 | CASEMGMT ---
SW spoke with patient to get a clearer picture of why he will not return to the snf. Patient said that as of March 18 patient will have to pay a patient liability at the snf and he will lose his food card which is daughter uses. Patient would only get $50 of his check and the rest of the money would go to caring for him at the SNF. Patient has other bills he has to pay and he would not have the money to pay them if he went back to the SNF. Patient said his mom would do the disimpacting and his daughter would do the wound care. Patient has a sliding board he uses for transfers. SW will work with patient to finalize a d/c plan. Suyapa VASQUEZ
[2022-03-14] MEDS: Potassium Chloride Oral Tablet 20 MEQ PO (16:20)
[2022-03-14] MEDS: Furosemide 40 MG Tablet PO (16:20)
[2022-03-14 19:05] LABS: Bedside Glucose 162 mg/dL (74-106)
[2022-03-14] MEDS: Doxazosin 1 MG Tablet PO (21:06)
[2022-03-14] MEDS: traMADol 50 MG Tablet 100 MG PO (21:06)
[2022-03-14] MEDS: Atorvastatin Calcium 20 MG Tablet PO (21:07)
[2022-03-14] MEDS: Montelukast 10 MG Tablet PO (21:08)
[2022-03-14] MEDS: 0.9% Saline Lock 10 ML Syringe IV (21:12)
[2022-03-14 23:45] LABS: Bedside Glucose 135 mg/dL (74-106)
[2022-03-15] VITALS (12 sets, daily range): BP systolic 134–163; BP diastolic 65–73; PULSE 67–98; RESP 16–25; TEMP 36.3–37.3; O2SAT 92–97
[2022-03-15 06:11] LABS: Anion Gap 8 (5-15); BUN 19 mg/dL (7-18); BUN/Creat Ratio 24.1 RATIO (10-20); Calcium,Total 9.4 mg/dL (8.5-10.1); Chloride 106 mmol/L (98-107); Creatinine, Serum 0.79 mg/dL (0.70-1.30); EST Glomerular Filtration Rate 109 mL/min (>60); Est Glom Filt Rate - Afr Amer 132 mL/min (>60); Estimated Creatinine Clearance 115.17 ml/min; Glucose 147 mg/dL (74-106); Potassium 3.6 mmol/L (3.5-5.1); Sodium Level 139 mmol/L (136-145)
[2022-03-15 07:10] LABS: Bedside Glucose 145 mg/dL (74-106)
--- NOTE | 2022-03-15 08:55 | CASEMGMT ---
EDGAR called Aneta at [facility] to see if there are any possible work arounds for patient. Patient would have to pay his liability as of Mar 18 and [facility] wants the money up front. Aneta will check with their business office and let EDGAR know. Suyapa Barajas ERP MANAGER CHRISTINA
[2022-03-15] MEDS: Furosemide 40 MG Tablet PO ×2 (09:20→17:42)
[2022-03-15] MEDS: Senna/Docusate Sodium 1 Tablet 2 TABLET PO ×2 (09:20→21:22)
[2022-03-15] MEDS: amLODIPine 10 MG Tablet PO (09:20)
[2022-03-15] MEDS: Fluticasone 0.05% 1 SPRAY NASAL.SRY 2 SPRAY NASAL ×2 (09:21→21:22)
[2022-03-15] MEDS: Famotidine 20 MG Tablet PO ×2 (09:21→21:22)
[2022-03-15] MEDS: LURASIDONE HCL 40 MG TABLET PO (09:21)
[2022-03-15] MEDS: Potassium Chloride Oral Tablet 20 MEQ PO ×2 (09:21→16:01)
[2022-03-15] MEDS: Insulin U-500 UNITS/ML PEN 60 UNITS SC ×3 (09:21→17:43)
[2022-03-15] MEDS: Multivitamins,Therapeutic Tablet 1 TABLET PO (09:21)
[2022-03-15] MEDS: Enoxaparin 40 MG/0.4 ML Syringe SC (09:22)
[2022-03-15] MEDS: Glucerna Shake 120 ML LIQUID PO ×4 (09:25→21:27)
[2022-03-15] MEDS: Gabapentin 100 MG Capsule 200 MG PO ×3 (09:25→16:01)
--- NOTE | 2022-03-15 10:56 | CASEMGMT ---
SW spoke with patient and let him know EDGAR and RN OSMAR are working on getting him set up for home. SW provided patient with a list of Home Health providers including quality and resource use data and consistent with patient?s preferred geographic region, medical needs, and insurance network were provided from the [facility] Guide. Patient's choices are [facility], [facility], and [facility]. EDGAR sent referrals to all three agencies through [facility]. Await response. Suyapa VASQUEZ
[2022-03-15] MEDS: DAKIN'S SOL HALF STRENGTH (=0.25%) 1 APPLIC TOPICAL ×2 (11:21→21:23)
--- NOTE | 2022-03-15 11:21 | CASEMGMT ---
Per therapy, pt has a hospital bed at home that was setup earlier this year but cannot transfer in and out easily via slide board to/from w/c. Per notes, bed was set up thru [facility]. Call to Mahad at [facility] and he says they have been out to pt's home to trouble shoot the hospital bed but pt has never been there as he has been in SNF. Mahad states they will attempt to go out once pt home to figure out bed again and he states he was trying to figure out if there was another bed that raises/lowers that they could get for pt, but pt may have to pay some out of pocket. This RN CM asked about pt getting a different w/c that was maybe higher and Mahad then transferred to pt's room to discuss w/c size and plan for f/u once pt home. CM to follow. SStgen SHAFFER CM
[2022-03-15] MEDS: Insulin Lispro 100 UNIT/ML INSULN.PEN SC ×2 (11:23→17:42)
[2022-03-15 11:45] LABS: Bedside Glucose 229 mg/dL (74-106)
--- NOTE | 2022-03-15 14:17 | CASEMGMT ---
Addendum entered by Suyapa Barajas 03/15/22 14:29: 5 declinations Addendum entered by Suyapa Barajas 03/15/22 14:25: [facility] has received 4 more declinations from home health agencies: [facility], [facility], [facility], [facility] and [facility]. Suyapa VASQUEZ Original Note: [facility] has declined patient as well as [facility], [facility], [facility], [facility], [facility]. [facility] is still [facility], however their admissions person is out until tomorrow. Patient is okay with [facility] sending out referrals to all agencies. [facility] sent out 14 more referrals via [facility]. Await responses. Suyapa VASQUEZ
--- NOTE | 2022-03-15 15:41 | CASEMGMT ---
SW has received denials from [facility], [facility], [facility], [facility], [facility], [facility], and [facility]. SW is waiting to hear back from [facility], [facility], [facility], [facility], [facility], [facility], [facility], and [facility]. Suyapa Barajas [employer] LINEMAN CHRISTINA
--- NOTE | 2022-03-15 15:50 | PCM.PN.HOSP ---
Subjective Subjective Patient has no complaints and is anxious to go home. Social work clarified while he will not be returning to the correction. The patient states that as of March 18 he will have to pay patient liability at the correction and loses food card which his daughter uses to eat. The patient reported that he would only get his $50 check and the rest of the money would go to caring for him at the skilled facility. The patient indicated he has other bills to pay I would not have the money to pay them if he went back to the correction. The patient reported that his mom would help with disimpacting and his daughter would do the wound care. He uses a sliding board for transfers and has 1 available at home. We are currently in the process of trying to find a home health agency to pick him up to help with care after discharge. Thus far he has been denied by 15 agencies and we are currently waiting to hear from the other referrals. I discussed this extensively with him and he is very angry and would like to leave. He threatens to leave AGAINST MEDICAL ADVICE. I advised against doing this however I did tell him that I would write for his antibiotic if he did elect to leave AMA. Objective Data Objective Data Vital Signs: Vital Signs Temp Pulse Resp BP Pulse Ox O2 Del Method O2 Flow Rate 98.2 F 67 18 163/69 H 97 Room Air 2 03/15/22 14:55 03/15/22 14:55 03/15/22 14:55 03/15/22 14:55 03/15/22 14:55 03/15/22 14:55 03/15/22 07:17 FiO2 25 03/15/22 07:17 Oxygen Flow Rate (L/min) 2 Oxygen Delivery Method Room Air Weight: 186.1 kg Body Mass Index (BMI) 57.1 Intake & Output: Intake and Output for Last 24 Hours 03/13/22 03/14/22 03/15/22 23:59 23:59 23:59 Intake Total 3438.42 / 3638.42 1648 / 1648 941.25 / 941.25 Output Total 3950 / 4250 4050 / 4050 1525 / 1525 Balance -511.58 / -611.58 -2402 / -2402 -583.75 / -583.75 Lab / Micro Data Result Diagrams: 03/14/22 05:40 03/15/22 05:26 Labs: Laboratory Results - last 24 hr 03/14/22 16:16: POC Glucose 162 H 03/14/22 20:58: POC Glucose 135 H 03/15/22 05:26: Sodium 139, Potassium 3.6, Chloride 106, Carbon Dioxide 25.0, Anion Gap 8, BUN 19 H, Creatinine 0.79, Estim Creat Clear Calc 115.17, Est GFR (MDRD) Af Amer 132, Est GFR (MDRD) Non-Af 109, BUN/Creatinine Ratio 24.1 H, Glucose 147 H, Calcium 9.4 03/15/22 06:44: POC Glucose 145 H 03/15/22 11:22: POC Glucose 229 H Micro: Microbiology 03/11/22 17:06 Blood Culture (Wb) - Right Forearm Blood Culture - Final 03/11/22 16:40 Blood Culture (Wb) - Right Forearm Bacteria Detection (PCR) - Final Enterococcus faecalis 03/11/22 16:40 Blood Culture (Wb) - Right Forearm Blood Culture - Final Enterococcus faecalis 03/11/22 20:30 Wound - Sacral Gram Stain - Final 03/11/22 20:30 Wound - Sacral Wound Culture - Final Coag Negative Staph Coag Negative Staph#2 03/11/22 16:56 Urine Catheter - Catheter Urine Culture - Final Enterococcus faecalis 03/11/22 16:56 Urine Catheter - Catheter Streptococcus pneumoniae Antigen (M - Final 03/11/22 18:46 Nasal Secretion SARS-CoV-2 & FLU Antigen (Rapid) - Final 03/11/22 16:56 Urine Catheter - Garcia Legionella Antigen - Final 03/11/22 16:59 Nasal Secretion SARS-CoV-2 Antigen (Rapid) - Final Physical Exam Const alert, oriented x3, no apparent distress and well nourished Constitutional Narrative: Morbidly obese middle-aged white male sitting up in bed, wound nurse at bedside, sitting up and watching television, appears comfortable General Appearance: cooperative HEENT normocephalic, head/scalp atraumatic, hearing grossly normal bilaterally and moist oral mucous membranes HEENT Narrative: Mallampati 3-4, no thrush Resp normal respiratory effort, no retractions, no use of accessory muscles and clear to auscultation bilaterally Auscultation: Negative for crackles, rales, rhonchi or wheezes Cardio regular rate, regular rhythm, S1 normal heart sound, S2 normal heart sound, no murmurs, no rub, no gallops and no clicks GI normal to inspection, nondistended, normoactive bowel sounds, soft to palpation and non-tender GI Narrative: Large protuberant abdomen Extremity Extremity Narrative: Chronic bilateral lower extremity edema, no clubbing or cyanosis Neuro oriented x3 and CN's II-XII intact bilaterally Neuro Narrative: Patient with lateral lower extremity paraplegia, moves upper extremities symmetrically without any deficits Sensorium / Orientation: awake, alert, oriented to person, oriented to place and oriented to time Speech: speech normal Assessment & Plan Assessment/Plan (1) Sepsis with acute organ dysfunction without septic shock: (2) Urinary tract infection: (3) Acute respiratory failure with hypoxia: (4) Lactic acidosis: (5) ION (acute kidney injury): (6) Leukocytosis: (7) Decubitus ulcer of sacral region, stage 4: (8) Bacteremia due to Enterococcus: PLAN: Plan Sepsis suspected secondary to Enterococcus faecalis bacteremia due to urinary tract infection and related to chronic Garcia catheter -Patient with fever of 104+, tachypnea, tachycardia, leukocytosis, acute respiratory failure with elevated creatinine significant from baseline at 1.88, and a lactic acidosis greater than 2, also presented with encephalopathy however improving upon my exam -COVID-19 and flu negative -Check strep pneumo and Legionella antigens with respiratory failure -Continue Zosyn and plan for discharge per ID recommendations is 7 more days of amoxicillin 500 mg p.o. 3 times daily -Plan is to discontinue Garcia at discharge and patient will self cath -Echocardiogram without any vegetations -Repeat blood cultures pending result from 03/13/2022 -Infectious disease following-appreciate input ION -Baseline serum creatinine is 0.5-0.7 -Resolved Acute hypoxic respiratory failure -Resolved -Patient required 10 L nonrebreather on presentation with a PaO2 of 94 and a sat of 97 on 10 L -Baseline oxygen on room air however it was not identified but given the PaO2 on 10 L this is indicative of hypoxia -Patient is now on room air -Incentive spirometry -COVID and flu antigens negative -strep pneumo and Legionella antigens negative -Anticipate his acute hypoxic respiratory failure was most likely related to his sepsis on presentation Leukocytosis -Resolved Chronic stage II sacral pressure ulcer -Per patient this has been improving and getting smaller -Wound nurse agrees -Patient has refused diverting ostomy previously -Wound culture shows 2 species of coag negative staph -Wound care following DM-2 -Patient is on U500 insulin -Home dose has been cut by 50% as his blood sugars were on the low end of normal -Continue 60 units for now and monitor--> uptitrate slowly if needed -We will continue home insulin doses with sliding scale -Accu-Cheks 3 times daily and at bedtime -Suspect diet is a bit different here than he is on at baseline and that is why we have had to cut his home insulin Hypertension -Continue Lasix/continue home amlodipine -We will discontinue hydrochlorothiazide entirely at discharge as he is already on a diuretic -As needed labetalol available for systolic greater than 160 Hyperlipidemia -Continue home statin Paraplegia -Patient is at baseline Morbid obesity -Complicates treatment, prognosis, outcomes -BMI is 56.8 -Recommend weight loss DVT prophylaxis -Lovenox -SCDs CODE STATUS -Full code as per discussion on admission the emergency department Charges/Coding Visit Charges Inpatient E&M: 08668 Subs Hosp L2
[2022-03-15] MEDS: Mag Hydrox/Al Hydrox/Simeth 30 ML UDC PO (16:01)
[2022-03-15] MEDS: traMADol 50 MG Tablet 100 MG PO (16:07)
[2022-03-15 16:26] LABS: Bedside Glucose 169 mg/dL (74-106)
[2022-03-15] MEDS: Atorvastatin Calcium 20 MG Tablet PO (21:22)
[2022-03-15] MEDS: Doxazosin 1 MG Tablet PO (21:22)
[2022-03-15] MEDS: Montelukast 10 MG Tablet PO (21:22)
[2022-03-15 21:51] LABS: Bedside Glucose 154 mg/dL (74-106)
[2022-03-16] VITALS (8 sets, daily range): BP systolic 140–150; BP diastolic 58–74; PULSE 71–93; RESP 16–20; TEMP 36.4–36.9; O2SAT 93–96
[2022-03-16] MEDS: Acetaminophen 325 MG Tablet 650 MG PO (05:55)
[2022-03-16] MEDS: traMADol 50 MG Tablet 100 MG PO ×2 (06:39→14:16)
[2022-03-16] MEDS: Insulin Lispro 100 UNIT/ML INSULN.PEN SC ×2 (06:40→12:14)
[2022-03-16 06:55] LABS: Bedside Glucose 165 mg/dL (74-106)
[2022-03-16] MEDS: DAKIN'S SOL HALF STRENGTH (=0.25%) 1 APPLIC TOPICAL (09:49)
[2022-03-16] MEDS: Insulin U-500 UNITS/ML PEN 60 UNITS SC ×2 (10:13→12:16)
[2022-03-16] MEDS: Gabapentin 100 MG Capsule 200 MG PO ×2 (10:15→12:14)
[2022-03-16] MEDS: Fluticasone 0.05% 1 SPRAY NASAL.SRY 2 SPRAY NASAL (10:15)
[2022-03-16] MEDS: Multivitamins,Therapeutic Tablet 1 TABLET PO (10:15)
[2022-03-16] MEDS: Potassium Chloride Oral Tablet 20 MEQ PO (10:15)
[2022-03-16] MEDS: Glucerna Shake 120 ML LIQUID PO (10:16)
[2022-03-16] MEDS: Enoxaparin 40 MG/0.4 ML Syringe SC (10:17)
[2022-03-16] MEDS: Famotidine 20 MG Tablet PO (10:18)
[2022-03-16] MEDS: amLODIPine 10 MG Tablet PO (10:18)
[2022-03-16] MEDS: Senna/Docusate Sodium 1 Tablet 2 TABLET PO (10:19)
[2022-03-16] MEDS: LURASIDONE HCL 20 MG TABLET 40 MG PO (10:27)
[2022-03-16] MEDS: Furosemide 40 MG Tablet PO (10:27)
--- NOTE | 2022-03-16 10:27 | WOUNDNOTE ---
Pt had c/o that he felt the bed was not working. this nurse checked and the cord at the side of the box at the foot end of the bed was loose. once hooked back up, the bed was filled with air again. pt appreciative. will continue to monitor.
[2022-03-16] MEDS: Mag Hydrox/Al Hydrox/Simeth 30 ML UDC PO (10:28)
--- NOTE | 2022-03-16 11:11 | CASEMGMT ---
Discharge [employer] This sba underwriter called [facility] and spoke to Winnie in intake. Home Health can accept patient. Winnie in intake was very clear that home health will not do any disimpacting from patient wound. OSMAR Feli stated Mom and Daughter will be doing this. This sba underwriter told Winnie in intake this information and Winnie was okay in accepting the patient. But, Winnie said if nurse goes to the home and the family will not disimpact the wound they will not so resumption of care will be done. DEENA Rosas also aware. Staff from Home Health will be calling patient for state of care date and time. Plan: Home with Home Health ( [facility]). Maria Guadalupe Rahman Discharge [employer] [facility]
--- NOTE | 2022-03-16 11:20 | PCM.DC.SUM ---
Providers Date of Admission: 03/11/22 Date of Discharge: 03/16/22 Primary Care Physician: Dr. Jimmie Rand MD Consultations 03/12/22 03:27 Consult: Onc/Wound/payroll coordinator Routine Comment: Reason for Consult:: ischial sacral decubiti 03/12/22 11:50 Consult: Infectious Disease Routine Consulting Provider: Reji Chou Reason for Consult: Enterococcus bacteremia EMERGENT Consult: No MD Notified: Yes Date Notified: 03/12/22 Time Notified: 12:56 Method of Notification: Text Reason For Visit: SEPSIS Diagnosis Discharge Diagnosis (1) Sepsis with acute organ dysfunction without septic shock: Status: Acute Code(s): A41.9 - Sepsis, unspecified organism; R65.20 - Severe sepsis without septic shock (2) Urinary tract infection: Status: Acute Code(s): N39.0 - Urinary tract infection, site not specified (3) Acute respiratory failure with hypoxia: Status: Resolved Code(s): J96.01 - Acute respiratory failure with hypoxia (4) Lactic acidosis: Status: Resolved Code(s): E87.2 - Acidosis (5) ION (acute kidney injury): Status: Resolved Code(s): N17.9 - Acute kidney failure, unspecified (6) Leukocytosis: Status: Resolved Code(s): D72.829 - Elevated white blood cell count, unspecified (7) Decubitus ulcer of sacral region, stage 4: Status: Acute Code(s): L89.154 - Pressure ulcer of sacral region, stage 4 (8) Bacteremia due to Enterococcus: Status: Acute Code(s): R78.81 - Bacteremia; B95.2 - Enterococcus as the cause of diseases classified elsewhere Plan Sepsis suspected secondary to Enterococcus faecalis bacteremia due to urinary tract infection and related to chronic Garcia catheter -Patient with fever of 104+, tachypnea, tachycardia, leukocytosis, acute respiratory failure with elevated creatinine significant from baseline at 1.88, and a lactic acidosis greater than 2, also presented with encephalopathy however improving upon my exam -COVID-19 and flu negative -Check strep pneumo and Legionella antigens with respiratory failure -Continue Zosyn and plan for discharge per ID recommendations is 7 more days of amoxicillin 500 mg p.o. 3 times daily -Plan is to discontinue Garcia at discharge and patient will self cath -Echocardiogram without any vegetations -Repeat blood cultures pending result from 03/13/2022 -Infectious disease following-appreciate input ION -Baseline serum creatinine is 0.5-0.7 -Resolved Acute hypoxic respiratory failure -Resolved -Patient required 10 L nonrebreather on presentation with a PaO2 of 94 and a sat of 97 on 10 L -Baseline oxygen on room air however it was not identified but given the PaO2 on 10 L this is indicative of hypoxia -Patient is now on room air -Incentive spirometry -COVID and flu antigens negative -strep pneumo and Legionella antigens negative -Anticipate his acute hypoxic respiratory failure was most likely related to his sepsis on presentation Leukocytosis -Resolved Chronic stage II sacral pressure ulcer -Per patient this has been improving and getting smaller -Wound nurse agrees -Patient has refused diverting ostomy previously -Wound culture shows 2 species of coag negative staph -Wound care following DM-2 -Patient is on U500 insulin -Home dose has been cut by 50% as his blood sugars were on the low end of normal -Continue 60 units for now and monitor--> uptitrate slowly if needed -We will continue home insulin doses with sliding scale -Accu-Cheks 3 times daily and at bedtime -Suspect diet is a bit different here than he is on at baseline and that is why we have had to cut his home insulin Hypertension -Continue Lasix/continue home amlodipine -We will discontinue hydrochlorothiazide entirely at discharge as he is already on a diuretic -As needed labetalol available for systolic greater than 160 Hyperlipidemia -Continue home statin Paraplegia -Patient is at baseline Morbid obesity -Complicates treatment, prognosis, outcomes -BMI is 56.8 -Recommend weight loss DVT prophylaxis -Lovenox -SCDs CODE STATUS -Full code as per discussion on admission the emergency department Medications at Discharge Home Medications male urinal #1 ea 08/23/18 wash basin #1 ea 08/23/18 gauze bandage 4 X 4 (Curad Gauze Pad) #2,000 ea 04/22/19 shower chair bariatric #1 ea 04/29/19 lancets 28 gauge (FreeStyle Lancets) #200 ea 07/04/19 hydrocortisone 2.5 % topical ointment 1 applic topical BID PRN rash #454 grams 07/01/20 OneTouch Verio Flex meter (blood-glucose meter) #1 ea 07/16/20 lancets 33 gauge (OneTouch Delica Lancets) #100 ea 07/16/20 Wood transfer board, 32 inches in length 10 inches wide 1/2 inch thick #1 ea 09/06/20 lancets 33 gauge (OneTouch Delica Plus Lancet) #100 ea 09/16/20 compr.stocking,thigh,reg,large #6 ea 11/11/20 compress.stocking,knee,reg,lrg #6 ea 11/12/20 cpap mask #1 ea 07/14/21 atorvastatin 20 mg tablet 20 mg PO QHS cholesterol lowering 08/29/21 doxazosin 1 mg tablet 1 mg PO QHS BPH #90 tabs 11/09/21 pen needle, diabetic 32 gauge x 5/32 (BD Ultra-Fine Jenny Pen Needle) #100 ea 12/02/21 WSN Systemsuch Verio test strips (blood sugar diagnostic) #100 ea 12/22/21 acetaminophen 325 mg capsule 650 mg PO Q4H PRN pain 02/28/22 acetaminophen 500 mg capsule 1,000 mg PO TID PRN pain 02/28/22 aluminum-magnesium hydroxide 200 mg-200 mg/5 mL oral suspension 30 ml PO Q4H PRN GI distress 02/28/22 amlodipine 10 mg tablet 10 mg PO DAILY 02/28/22 ascorbate calcium (vitamin C) 500 mg tablet 500 mg PO DAILY 02/28/22 bisacodyl 10 mg rectal suppository 10 mg NJ DAILY PRN Constipation 02/28/22 dulaglutide 4.5 mg/0.5 mL subcutaneous pen injector (Trulicity) 4.5 mg subcut .QTH blood sugar 02/28/22 enoxaparin 40 mg/0.4 mL subcutaneous syringe 40 mg subcut DAILY 02/28/22 famotidine 20 mg tablet 20 mg PO BID 02/28/22 fluticasone propionate 50 mcg/actuation nasal spray,suspension 2 spray intranasal BID 02/28/22 furosemide 40 mg tablet 40 mg PO BID 02/28/22 gabapentin 400 mg capsule 400 mg PO 4X/DAY 02/28/22 glucagon HCl 1 mg solution for injection (Glucagon (HCl) Emergency Kit) 1 mg subcut Q20M PRN Hypoglycemia 02/28/22 guaifenesin 100 mg/5 mL oral liquid 200 mg PO Q4H PRN cough 02/28/22 insulin lispro 100 unit/mL subcutaneous solution (Humalog U-100 Insulin) 1 sliding scale dose subcut USEASDIRECTD 02/28/22 insulin lispro 100 unit/mL subcutaneous solution (Humalog U-100 Insulin) 110 unit subcut TID 02/28/22 lurasidone 40 mg tablet 40 mg PO QAM 02/28/22 magnesium hydroxide 400 mg/5 mL oral suspension (Milk of Magnesia) 30 ml PO DAILY PRN constipation 02/28/22 montelukast 10 mg tablet (Singulair) 10 mg PO QHS 02/28/22 multivitamin 1 tab PO DAILY 02/28/22 potassium chloride 20 mEq tablet,extended release 20 meq PO BID 02/28/22 sennosides 8.6 mg-docusate sodium 50 mg tablet (Senna with Docusate Sodium) 2 tab-cap PO BID 02/28/22 sodium phosphates 19 gram-7 gram/118 mL enema (Fleet Enema) 118 ml NJ DAILY PRN constipation 02/28/22 tramadol 100 mg tablet 100 mg PO Q6H PRN pain 02/28/22 Lactobacillus rhamnosus GG 10 billion cell capsule (Culturelle) 1 cap PO DAILY 03/11/22 amoxicillin 500 mg tablet 500 mg PO Q8H #21 tabs 03/15/22 lisinopril 10 mg tablet 10 mg PO DAILY #30 tabs 03/15/22 Hospital Course Operations None Procedures 2-D Echocardiogram and EKG Summary of Care Provided Minutes Spent on Discharge: 39 Hospital Course: Mr. Yo is a 51-year-old white male who presented to the emergency department at [facility] from his [facility] where he had been a chronic resident for approximately 3 months complaining of shortness of breath, cough, and hypoxia. The patient is paraplegic at baseline and bedridden. Upon presentation he had some mild encephalopathy and was confused with orientation questions per ED documentation however this had resolved by the time of my evaluation. He had associated fever and chills with minimal sputum production. He had had a chronic Garcia for approximately 3 months to help with wound healing and was diagnosed with a urinary tract infection approximately 1-1/2 weeks prior to presentation. He was placed on ciprofloxacin and has been taking it since then. He reported that the day prior to presentation he had been feeling poorly with chills, no documented fever, nausea with few episodes of emesis, and general malaise. He indicated the nausea and vomiting had resolved since presentation. He was hypoxic upon presentation and placed on a nonrebreather at 10 L. Vital signs on presentation demonstrated a temperature of 104.7, pulse of 130, blood pressure of 164/84, respiratory rate of 30, and oxygen saturations were 98% on a nonrebreather at 10 L.? Room air documentation was at never noted however the patient has been on room air with oxygen saturations prior to this admission satting 93% so I do suspect he has hypoxia upon presentation.? His CBC showed a significant leukocytosis with a white count of 15,000 and a left shift.? His hemoglobin is chronically low and stable.? His coags were normal with an INR of 1.2.? A blood gas was obtained and his pH was normal at 7.43 with a PCO2 of 42.7 and his PO2 was 94 with a sat of 97% on 10 L nonrebreather.? His CBC shows mild hyponatremia with a sodium of 134 and hypochloremia with a chloride of 97.? His BUN and creatinine are elevated from baseline at 33 and 1.8 respectively (baseline serum creatinine appears to be 0.5-0.7).? His AST was mildly elevated at 51 and his lactic acid was 2.3 on admission.? His urine is consistent with infection showing some occult blood leukoesterase greater than 100 white cells per high-powered field and 4+ bacteria.? His chest x-ray shows bibasilar atelectasis without any other major interval changes.? His EKG shows sinus tachycardia without any ST-T wave changes consistent with acute ischemia. The emergency department he was treated for sepsis.? Blood cultures were obtained and broad-spectrum antibiotics including Zosyn and vancomycin were initiated. He was admitted to the intensive care unit and monitored closely as there was concern that he could have a gram-negative sepsis and he would clinically worsen after we started treating him with antibiotics. While his vancomycin was infusing he had a red arm with a rash developing and that was very itchy. Nursing switched arms and the same reaction happened the other harm so vancomycin was discontinued. His microbiology initially showed gram-positive cocci but not in clusters and his MRSA PCR was negative. He was maintained on Zosyn and clinically improved with weaning of oxygen, defervesced seeing, and white count was trending down. His blood cultures ended up growing Enterococcus faecalis as did his urine culture. These were resistant to Cipro which explains why he did not improve clinically with treatment previously. He was maintained on antibiotics and with the cultures being Enterococcus an echocardiogram was performed. No vegetations were noted. Repeat blood cultures were drawn and are negative at 48 hours on 03/15/2022. ID was consulted and recommended discharge with amoxicillin 500 mg 3 times daily for another 7 days for completion of antibiotics. He was able to be transferred out of the ICU. He was to be discharged from [facility] upon his request on 03/16/2022. Evidently there were issues with insurance and his so security check and how it would be distributed based on him being in his facility therefore he elected to go home. We had an accepting home health care agency on 03/16/2022 and he was to be reset up with aids as he had been prior to his skilled facility admission within 9 days of discharge per his report. He indicated he had talked to them the day prior and his case was reopened. Prescription for antibiotics were sent to his local pharmacy. He was on room air at the time of discharge and was followed by wound care throughout his hospitalization. Wound care thought his wound has improved significantly since last evaluated during his last hospitalization. He is to follow-up with his primary care physician within the next 1 to 2 weeks. Patient wanted his Garcia removed and he would go back to straight cathing at home. He indicated he had plenty of supplies to do so. He was discharged home with home health in stable condition on 03/16/2022. Discharge diagnoses: Sepsis secondary to Enterococcus faecalis bacteremia due to UTI with chronic Garcia catheter Enterococcus faecalis bacteremia Enterococcus faecalis UTI ION-resolved Acute hypoxic respiratory failure-resolved Leukocytosis-resolved Chronic stage II pressure ulcer DM-2 Hypertension Hyperlipidemia Paraplegia Neurogenic bladder Morbid obesity Physical Exam Const alert, oriented x3, no apparent distress and well nourished Constitutional Narrative: Morbidly obese middle-aged white male sitting up in bed, wound nurse at bedside, lying on left side and watching television, appears comfortable General Appearance: cooperative, comfortable, well kempt and well developed Orientation / Consciousness: awake Exam Limitations: no limitations Nutritional Appearance: morbidly obese HEENT normocephalic, head/scalp atraumatic, hearing grossly normal bilaterally and moist oral mucous membranes HEENT Narrative: Mallampati 3-4, dentition is fair, no thrush Eyes PERRL, EOMs intact bilaterally and conjunctivae normal Eyes Narrative: No scleral icterus Neck no lymphadenopathy, supple, no JVD and no carotid bruits Neck Narrative: Short thick neck, trachea midline Resp normal respiratory effort, no retractions, no use of accessory muscles and clear to auscultation bilaterally Resp Narrative: Now on room air Auscultation: Negative for crackles, rales, rhonchi or wheezes Cardio regular rate, regular rhythm, S1 normal heart sound, S2 normal heart sound, no murmurs, no rub, no gallops and no clicks GI normal to inspection, nondistended, normoactive bowel sounds, soft to palpation and non-tender GI Narrative: Large protuberant abdomen Extremity Extremity Narrative: Chronic bilateral lower extremity edema, no clubbing or cyanosis Skin No no wounds, skin turgor normal, no jaundice, no petechiae and no mottling Skin Narrative: Sacral decubiti which is improving in size and depth, no signs of infection Neuro oriented x3 and CN's II-XII intact bilaterally Neuro Narrative: Patient with lateral lower extremity paraplegia, moves upper extremities symmetrically without any deficits Sensorium / Orientation: awake, alert, oriented to person, oriented to place and oriented to time Speech: speech normal Psych affect normal Psych Narrative: Pleasant and appropriate Weight / BMI Weight Weight: 186.5 kg Body Mass Index (BMI) 57.1 ABG / Lab / Microbiology Data Result Diagrams: 03/14/22 05:40 03/15/22 05:26 Laboratory: Laboratory Results - last 24 hr 03/15/22 11:22: POC Glucose 229 H 03/15/22 16:04: POC Glucose 169 H 03/15/22 21:16: POC Glucose 154 H 03/16/22 06:35: POC Glucose 165 H Microbiology: Microbiology 03/13/22 12:06 Blood Culture (Wb) - Right Hand Blood Culture - Preliminary No growth in 48 hours. 03/13/22 11:52 Blood Culture (Wb) - Left Hand Blood Culture - Preliminary No growth in 48 hours. 03/11/22 17:06 Blood Culture (Wb) - Right Forearm Blood Culture - Final 03/11/22 16:40 Blood Culture (Wb) - Right Forearm Bacteria Detection (PCR) - Final Enterococcus faecalis 03/11/22 16:40 Blood Culture (Wb) - Right Forearm Blood Culture - Final Enterococcus faecalis 03/11/22 20:30 Wound - Sacral Gram Stain - Final 03/11/22 20:30 Wound - Sacral Wound Culture - Final Coag Negative Staph Coag Negative Staph#2 03/11/22 16:56 Urine Catheter - Catheter Urine Culture - Final Enterococcus faecalis 03/11/22 16:56 Urine Catheter - Catheter Streptococcus pneumoniae Antigen (M - Final 03/11/22 18:46 Nasal Secretion SARS-CoV-2 & FLU Antigen (Rapid) - Final 03/11/22 16:56 Urine Catheter - Garcia Legionella Antigen - Final 03/11/22 16:59 Nasal Secretion SARS-CoV-2 Antigen (Rapid) - Final D/C Instructions Discharge Diet: Low fat / Low cholesterol and 1800 Calorie Control Diet Discharge Activity: Return to Normal Activity Meaningful Use Info Meaningful Use Diagnoses (Choose all that apply): None applicable Discharge Plan Admission Admit Date/Time: 03/11/22 18:32 Primary Reason for Your Visit: Shortness of breath Attending Provider: Samantha Bradford Primary Care Provider: Jimmie Rand Consulting Providers: Reji Chou Discharge Orders/Prescriptions Prescriptions: New amoxicillin 500 mg tablet 500 mg PO Q8H Qty: 21 0RF lisinopril 10 mg tablet 10 mg PO DAILY Qty: 30 0RF Continued (DME) male urinal Qty: 1 0RF Dose Instruction: As directed Rx Instructions: As directed (DME) wash basin Qty: 1 0RF Dose Instruction: As directed Rx Instructions: As directed hydrocortisone 2.5 % ointment 1 applic TOPICAL BID PRN (Reason: rash) Qty: 454 1RF acetaminophen 500 mg capsule 1,000 mg PO TID PRN (Reason: pain) acetaminophen 325 mg capsule 650 mg PO Q4H PRN (Reason: pain) Rx Instructions: do not exceed 4gm in 24 hrs amlodipine 10 mg tablet 10 mg PO DAILY multivitamin Tablet 1 tab PO DAILY furosemide 40 mg tablet 40 mg PO BID sennosides-docusate sodium [Senna with Docusate Sodium] 8.6-50 mg tablet 2 tab-cap PO BID gabapentin 400 mg capsule 400 mg PO 4X/DAY guaifenesin 100 mg/5 mL liquid 200 mg PO Q4H PRN (Reason: cough) famotidine 20 mg tablet 20 mg PO BID magnesium hydroxide [Milk of Magnesia] 400 mg/5 mL suspension 30 ml PO DAILY PRN (Reason: constipation) bisacodyl 10 mg suppository 10 mg NJ DAILY PRN (Reason: Constipation) Fleet Enema 19-7 gram/118 mL enema 118 ml NJ DAILY PRN (Reason: constipation) Rx Instructions: if dulcolax supp ineffective montelukast [Singulair] 10 mg tablet 10 mg PO QHS insulin lispro [Humalog U-100 Insulin] 100 unit/mL solution 110 unit subcut TID insulin lispro [Humalog U-100 Insulin] 100 unit/mL solution 1 sliding scale dose subcut USEASDIRECTD Rx Instructions: 0-150=0 units, 151-200=4 units, 201-250=8 units, 251-300=10 units, 301-350=12 units, 351-400=16 units. If over 400 call MD. 4 times per day fluticasone propionate 50 mcg/actuation spray,suspension 2 spray intranasal BID Rx Instructions: administer into each nostril enoxaparin 40 mg/0.4 mL syringe 40 mg subcut DAILY aluminum-magnesium hydroxide 200-200 mg/5 mL suspension 30 ml PO Q4H PRN (Reason: GI distress) lurasidone 40 mg tablet 40 mg PO QAM Rx Instructions: must administer with food (at least 350 calories) potassium chloride 20 mEq tablet extended release 20 meq PO BID Glucagon (HCl) Emergency Kit 1 mg recon soln 1 mg subcut Q20M PRN (Reason: Hypoglycemia) Rx Instructions: until target blood sugar attained tramadol 100 mg tablet 100 mg PO Q6H PRN (Reason: pain) ascorbate calcium (vitamin C) 500 mg tablet 500 mg PO DAILY Trulicity 4.5 mg/0.5 mL pen injector 4.5 mg subcut .QTH atorvastatin 20 mg tablet 20 mg PO QHS Culturelle 10 billion cell Capsule 1 cap PO DAILY (DME) gauze bandage [Curad Gauze Pad] 4 X 4 bandage See Rx Instructions .ROUTE .MEDSUPPLY Qty: 2000 3RF Rx Instructions: As directed, for type 2 DM (DME) shower chair bariatric Qty: 1 0RF Dose Instruction: As directed Rx Instructions: As directed (DME) lancets [FreeStyle Lancets] 28 gauge misc See Dose Instructions .ROUTE .MEDSUPPLY Qty: 200 3RF Dose Instruction: As directed Rx Instructions: test three times per day for Type 2 DM (DME) lancets [OneTouch Delica Lancets] 33 gauge misc See Rx Instructions .ROUTE .MEDSUPPLY Qty: 100 0RF Rx Instructions: As directed to monitor glucose levels (DME) blood-glucose meter [OneTouch Verio Flex meter] Misc See Rx Instructions .ROUTE .MEDSUPPLY Qty: 1 0RF Rx Instructions: tid (DME) Wood transfer board, 32 inches in length 10 inches wide 1/2 inch thick See Rx Instructions .Route .MEDSUPPLY Qty: 1 0RF Rx Instructions: patient 6 ft tall 414 lb (DME) lancets [OneTouch Delica Plus Lancet] 33 gauge misc See Rx Instructions .ROUTE .MEDSUPPLY Qty: 100 6RF Rx Instructions: tid (DME) compr.stocking,thigh,reg,large Misc See Dose Instructions .ROUTE .MEDSUPPLY Qty: 6 1RF Dose Instruction: As directed Rx Instructions: use daily for venous insufficiency 20-30 mmhg (DME) compress.stocking,knee,reg,lrg Misc See Rx Instructions .ROUTE .MEDSUPPLY Qty: 6 1RF Rx Instructions: Use Daily for venous insufficiency 20-30mmHg (DME) cpap mask See Rx Instructions .Route .MEDSUPPLY Qty: 1 0RF Rx Instructions: Use nightly doxazosin 1 mg tablet 1 mg PO QHS Qty: 90 0RF (DME) pen needle, diabetic [BD Ultra-Fine Jenny Pen Needle] 32 gauge x 5/32 needle See Rx Instructions .ROUTE .MEDSUPPLY Qty: 100 6RF Rx Instructions: tid (DME) OneTouch Verio test strips Strip See Rx Instructions .ROUTE .MEDSUPPLY Qty: 100 6RF Rx Instructions: As directed with meter up to 3 times daily to monitor glucose levels Discontinued dextrose [Glucose Gel] 40 % gel 10 g PO Q15M PRN Rx Instructions: until symptoms of low blood sugar are controlled hydrochlorothiazide 25 mg tablet 25 mg PO DAILY ciprofloxacin HCl [Cipro] 500 mg Tablet 500 mg PO BID Referrals / Follow Up: Jimmie Rand MD [Primary Care Provider] - Within 1 Week Disposition Disposition (needs filled in before D/C Order can be placed): Home Health Service Charges/Coding Visit Charges Inpatient E&M: 71432 Disch Hosp
[2022-03-16 11:40] LABS: Bedside Glucose 241 mg/dL (74-106)
--- NOTE | 2022-03-16 11:42 | CASEMGMT ---
Discharge Beck Tender This service writer sent d/c orders and script via [facility] to Home Health. Plan: Home with Home Health, Home Health Care Maria Guadalupe Rahman Discharge Beck Tender
--- NOTE | 2022-03-16 11:57 | CASEMGMT ---
Pt did speak with [employer] via phone yesterday but feels like no answer was obtained. Pt states they transferred me to someone else and after discussing for a minute, they had sent him to someone that has a bed that might work for him but likely not covered by insurance. This DEENA PRASAD asked pt about getting different w/c and pt then states 'but then how am I supposed to get into car, etc.' Pt very irritated and when [facility] gets brought up, states they don't do anything anyway and will take their time coming out.' [place] [facility] [place] and [place] [facility] plan is still for them to go out once pt home to re-assess hospital bed situation. SStaten DEENA PRASAD
--- NOTE | 2022-03-16 14:23 | CASEMGMT ---
SW spoke with patient and let him know [facility] will be coming out to see him. SW also let patient know that he will get picked up at 2p via bariatric cot. Patient said someone from the waiver program already called him and they will be out to do an assessment. Plan: d/c home with [facility] and aide. Suyapa VASQUEZ
== END 2022-03-16 14:57 | disposition home health service (06) | DRG 466 ==
LOC: ED 18:00 → ICU 21:14 → PCU 03-13 08:46
PROVIDERS: Admitting Provider Internal Medicine; Emergency Provider Emergency Medicine; PCP Internal Medicine; Visit Provider Internal Medicine
DX: T83.511A Infection and inflammatory reaction due to indwelling urethral catheter, initial encounter (principal); J96.01 Acute respiratory failure with hypoxia; A41.81 Sepsis due to Enterococcus; L89.154 Pressure ulcer of sacral region, stage 4; E87.1 Hypo-osmolality and hyponatremia; E11.42 Type 2 diabetes mellitus with diabetic polyneuropathy; B95.7 Other staphylococcus as the cause of diseases classified elsewhere; N17.9 Acute kidney failure, unspecified; G82.20 Paraplegia, unspecified; E87.2 Acidosis; Z79.4 Long term (current) use of insulin; Z68.43 Body mass index [BMI] 50.0-59.9, adult; E66.01 Morbid (severe) obesity due to excess calories; E78.5 Hyperlipidemia, unspecified; E87.6 Hypokalemia; I10 Essential (primary) hypertension; E87.8 Other disorders of electrolyte and fluid balance, not elsewhere classified; L53.8 Other specified erythematous conditions; N39.0 Urinary tract infection, site not specified; N31.9 Neuromuscular dysfunction of bladder, unspecified; R60.0 Localized edema; T36.8X5A Adverse effect of other systemic antibiotics, initial encounter; Z74.01 Bed confinement status; Z99.81 Dependence on supplemental oxygen; Z16.23 Resistance to quinolones and fluoroquinolones; Z79.01 Long term (current) use of anticoagulants; Z87.891 Personal history of nicotine dependence; Z79.899 Other long term (current) drug therapy
CPT/HCPCS: 36415; 36600; 71045; 80048; 80053; 81001; 82550; 82803; 82962; 83605; 83735; 84100; 85025; 85610; 85730; 87040; 87070; 87077; 87086; 87088; 87149; 87186; 87205; 87428; 87449; 87640; 87811; 93005; 93306; 94003; 94660; 94762; 97162; 97166; 97802; 99251; 99285; J7030; J7040; J7050; Q9957; A4216; C8929; G0463

== ENCOUNTER 2022-04-07 09:24 | Outpatient (RCR) | payer MEDICAID, SELFPAY ==
[2021-09-16 00:12] VITALS: BP 146/59; PULSE 109; RESP 16; TEMP 36.5
[2022-04-07 10:02] VITALS: BP 107/59; PULSE 96; TEMP 36.4
--- NOTE | 2022-04-07 10:56 | WC ---
Patient arrived via WC and was unable to assist with his transfer to the cot for examination. Multiple attempts were made by staff to utilize the chris lift to transfer the patient, but staff was unable to place the sling so that the transfer could be accomplished safely. Upon consult with the provider it was decided to send the patient to the ER for further evaluation, based on pictures the patient was able to show the provider. The Squad was called to effect the transfer via cot so that the patient could be transferred once he arrived in the ER. The ER Triage nurse was notified of the condition of the patient and the conditions of his transfer.
== END 2022-04-17 23:59 | disposition home or self-care (01) ==
LOC: WC 09:24
PROVIDERS: PCP Internal Medicine; Visit Provider Family Medicine
DX: Z01.89 Encounter for other specified special examinations (principal)

== ENCOUNTER 2022-04-07 11:06 | Inpatient (IN) | payer MEDICAID, SELFPAY ==
[2022-04-07] VITALS (11 sets, daily range): BP systolic 95–154; BP diastolic 45–60; PULSE 79–103; RESP 18–20; TEMP 36.7–37.6; O2SAT 94–100; BMI 53.6
--- NOTE | 2022-04-07 11:22 | CT_ITS ---
STUDY: CT PELVIS WITH CONTRAST REASON FOR EXAM: Male, 51 years old. Pelvic pain, possible decubitus ulcer RADIATION DOSAGE (If Supplied By Facility): CTDIvol = ( 37.61 ) mGy, DLP = ( 1630.10 ) mGycm TECHNIQUE: Transaxial imaging of the pelvis was performed without oral contrast. IV 100mL Isovue-370 was administered intravenously. Multiplanar coronal and sagittal images were reformatted. Individualized dose optimization techniques were used for this CT. COMPARISON: 08/29/2021 FINDINGS: There is now evidence of a decubitus ulcer immediately posterior to the coccyx. The ulcer comes extremely close to the distal coccygeal segments but there is no clear evidence of erosive lesion in the distal tip of the coccyx. There still appears to be a cleavage plane between the ulcer and the coccygeal segments. There is diffuse induration of the subcutaneous fat but no organized fluid collection to suspect an abscess. A divergence of the ulcer is also noted superiorly and comes very close to involving the posterior aspect of the left inferior pubic ramus, there are some sclerotic changes to the inferior pubic ramus but there is no clear erosion. There is significant associated soft tissue swelling. The bladder contains a COUGHLIN catheter. Normal visualized small intestine. Retained stool noted throughout the colon. There is no pelvic fluid. There is no pelvic lymphadenopathy or mass lesion. There is a fat-containing ventral hernia Normal visualized pelvic arteries. Bones are demineralized but no demonstrated pelvic fracture or sclerotic lesion noted. Surgical hardware in the lumbar spine free of complication CT/Pelvis WITH IV Contrast IMPRESSION: There is now a decubitus ulcer posterior to the coccyx and posterior aspect of the left inferior pubic ramus. The ulcer cavities abut both the coccyx and the posterior left inferior pubic ramus but there is no CT evidence of associated osseous erosion or involvement. There are subtle sclerotic changes to the posterior aspect of the left inferior pubic ramus. Diffuse induration of the subcutaneous soft tissues and soft tissue swelling around the left inferior pubic ramus but no subcutaneous emphysema is noted. No organized abscess Diffuse osteopenia without evidence of fracture surgical hardware in the lumbar spine free of complication Fat-containing ventral hernia Retained stool Electronically Signed: Waldemar Sage MD at 13:21 EDT ,
--- NOTE | 2022-04-07 11:25 | EX.ED.DYSGE1 ---
HPI <TERRANCE Coulter - Last Filed: 04/07/22 18:14> History of Present Illness Chief Complaint: Wound Check Narrative Narrative: Patient is diabetic and paraplegic. He has a chronic sacral decubitus ulcer since July 2021. In August he was transferred to [facility] to be evaluated for a diverting colostomy but he said this wasn't needed and they just did local debridement of the decubitus ulcer. A wound center nurse frequently comes to his home and does dressing changes. Today they sent him to the wound center concerned he may need debridement but are horrible. Working so they could not get him into bed to evaluate. They decided to send him to the ED. Patient denies fever, chills, or increased drainage or odor from the wound. He has no sensation in this area from his injury. [facility] <TERRANCE Coulter - Last Filed: 04/07/22 18:14> [facility] Medical History Acute respiratory failure, unspecified whether with hypoxia or hypercapnia Alcohol abuse Anemia Anemia Anxiety and depression Anxiety disorder Bacteremia due to Enterococcus Avelar's palsy Blister (nonthermal), right foot, initial encounter Chronic ulcer of right foot with fat layer exposed CPAP (continuous positive airway pressure) dependence Decubitus ulcer of sacral region, stage 4 Decubitus ulcer, buttock Depression Diabetes DVT (deep venous thrombosis) Edema of both lower extremities Essential (primary) hypertension Former smoker Headache Hemoglobin A1c 8.0% or greater History of foot ulcer History of stress test history of tooth removal Hyperlipidemia Incontinence 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 Insomnia Left shoulder pain care home (current) use of anticoagulants care home (current) 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 Morbid (severe) obesity due to excess calories Neuromuscular dysfunction of bladder, unspecified Neuropathic pain Obesities, morbid Obstructive sleep apnea On home oxygen therapy Osteoporosis Other seasonal allergic rhinitis Paraplegia Pressure sore of left ischium, unstageable Pressure ulcer Pressure ulcer of left buttock, unstageable Pressure ulcer of right buttock, unstageable Pressure ulcer of sacral region, unstageable Primary osteoarthritis, left shoulder Sacral ulcer Sacral wound Self-catheterizes urinary bladder Sepsis Skin necrosis Skin ulcer of left hip Skin ulcer of right hip Sleep apnea Stage II pressure ulcer Stage II pressure ulcer of buttock Type 2 diabetes mellitus with diabetic polyneuropathy Wound infection Home Medications male urinal #1 ea 03/08/19 [Rx Last Taken Unknown] wash basin #1 ea 08/23/18 [Rx Last Taken Unknown] gauze bandage 4 X 4 (Curad Gauze Pad) #2,000 ea 04/22/19 [Rx Last Taken Unknown] shower chair bariatric #1 ea 04/29/19 [Rx Last Taken Unknown] lancets 28 gauge (FreeStyle Lancets) #200 ea 07/04/19 [Rx Last Taken Unknown] OneTouch Verio Flex meter (blood-glucose meter) #1 ea 07/16/20 [Rx Last Taken Unknown] lancets 33 gauge (OneTouch Delica Lancets) #100 ea 07/16/20 [Rx Last Taken Unknown] Wood transfer board, 32 inches in length 10 inches wide 1/2 inch thick #1 ea 09/06/20 [Rx Last Taken Unknown] lancets 33 gauge (OneTouch Delica Plus Lancet) #100 ea 09/16/20 [Rx Last Taken Unknown] compr.stocking,thigh,reg,large #6 ea 11/11/20 [Rx Last Taken Unknown] compress.stocking,knee,reg,lrg #6 ea 11/12/20 [Rx Last Taken Unknown] cpap mask #1 ea 07/14/21 [Rx Last Taken Unknown] atorvastatin 20 mg tablet 20 mg PO QHS cholesterol lowering 08/29/21 [History Last Taken 04/06/22] acetaminophen 325 mg capsule 650 mg PO Q4H PRN pain 02/28/22 [History Last Taken 04/07/22] amlodipine 10 mg tablet 5 mg PO DAILY heart 02/28/22 [History Last Taken 04/06/22] gabapentin 400 mg capsule 300 mg PO 4X/DAY nerve pain 02/28/22 [History Last Taken 04/07/22] multivitamin 1 tab PO DAILY supplement 02/28/22 [History Last Taken 04/07/22] potassium chloride 20 mEq tablet,extended release 20 meq PO BID supplement 02/28/22 [History Last Taken 04/06/22] sennosides 8.6 mg-docusate sodium 50 mg tablet (Senna with Docusate Sodium) 2 tab-cap PO BID stool softener 02/28/22 [History Last Taken 04/07/22] pen needle, diabetic 32 gauge x 5/32 (BD Ultra-Fine Jenny Pen Needle) #100 ea 03/20/22 [Rx Last Taken Unknown] doxazosin 1 mg tablet 1 mg PO QHS BPH #90 tabs 03/22/22 [Rx Last Taken 04/06/22] catheter 16 Fr (Garcia Catheter) #1 ea 04/03/22 [Rx Last Taken Unknown] OneTouch Verio test strips (blood sugar diagnostic) #100 ea 04/06/22 [Rx Last Taken Unknown] pen needle, diabetic 32 gauge x 5/32 (BD Ultra-Fine Jenny Pen Needle) #100 ea 04/06/22 [Rx Last Taken Unknown] dulaglutide 4.5 mg/0.5 mL subcutaneous pen injector (Trulicity) 4.5 mg subcut .QFR blood sugar 04/07/22 [History Last Taken 04/07/22] furosemide 40 mg tablet 40 mg PO BID water 04/07/22 [History Last Taken 04/07/22] insulin regular hum U-500 conc 500 unit/mL(3 mL) subcut pen (Humulin R U-500 (Conc) Insulin Kwikpen) 110 unit subcut TIDWMEAL DM 04/07/22 [History Last Taken 04/07/22] lisinopril 10 mg tablet 40 mg PO DAILY bp 04/07/22 [History Last Taken 04/06/22] sodium hypochlorite 0.25 % solution (Dakin's Solution) 1 applic topical DAILY wound 04/07/22 [History Last Taken 04/07/22] Allergy/AdvReac Type Severity Reaction Status Date / Time metformin AdvReac Unknown unknown Verified 04/07/22 11:06 Family History Father Heart disease Myocardial infarction, Onset Age: 64 Hyperlipemia Mother Heart disease Hypertension Hyperlipemia Uncle Heart disease Grandfather Diabetes Grandmother Diabetes Surgical History History of back surgery Social History Smoking Status: Former smoker alcohol intake: former substance use type: does not use what type of physical activity do you participate in: none ROS <TERRANCE Coulter - Last Filed: 04/07/22 18:14> ROS ED ROS Narrative Constitutional: Negative for fever, chills, malaise. Eyes: Negative for visual change. ENT: Negative for sore throat, ear pain, rhinorrhea. CVS: Negative for palpitations, chest pain, syncope. Respiratory: Negative for shortness of breath, cough, orthopnea. GI: Negative for abdominal pain, nausea, vomiting, diarrhea, constipation, melena, hematochezia. : Negative for dysuria. Neuro: Positive for chronic sensory dysfunction?paraplegic. Skin: Positive for wound. Musc: Negative for joint pain, swelling, trauma. Heme: Negative for easy bruising, bleeding, lymphadenopathy. EXAM <TERRANCE Coulter - Last Filed: 04/07/22 18:14> Physical Exam Narrative Exam Narrative: CONST: Patient sitting in no acute distress. EYES: Normal inspection. ENT: Normal inspection, moist mucous membranes. NECK: Normal inspection. RESP: No respiratory distress, CTAB. CVS: Regular rate and rhythm, no murmur, no gallop. ABD: Soft and nontender, no guarding or rebound, nondistended. SKIN: Very large stage IV sacral decubitus ulcer approximately 16 x 10 cm. There is granulation tissue and no surrounding erythema or drainage, no odor. No necrotic tissue visible. Nontender because it is below patient's sensory level. There is no crepitus, fluctuance, or expressible drainage. EXTREMITIES: Normal appearance, no pedal edema. Psych: Normal affect. Const Vital Signs: 04/07/22 11:07 04/07/22 11:09 04/07/22 13:25 Temperature 98.6 F 98.6 F 98.1 F Temperature Source Temporal Temporal Oral Pulse Rate 92 92 90 Respiratory Rate 20 H 20 H 18 Blood Pressure 105/58 L 105/58 L 119/60 Blood Pressure Mean 73 73 79 Pulse Ox 97 97 97 Oxygen Delivery Method Room Air Room Air Room Air 04/07/22 13:20 04/07/22 14:39 04/07/22 16:22 Temperature 98.1 F 98.3 F 98.2 F Temperature Source Temporal Oral Oral Pulse Rate 90 94 101 H Respiratory Rate 18 18 20 H Blood Pressure 119/60 122/60 H 154/53 H Blood Pressure Mean 79 80 86 Pulse Ox 97 98 95 Oxygen Delivery Method Room Air Room Air Room Air 04/07/22 17:12 Temperature 98.2 F Temperature Source Oral Pulse Rate 103 H Respiratory Rate 20 H Blood Pressure 98/46 L Blood Pressure Mean 63 Pulse Ox 100 Oxygen Delivery Method Room Air <Dr. Jose Alfredo Jacobs DO - Last Filed: 04/08/22 07:10> Physical Exam Const Vital Signs: 04/07/22 11:07 04/07/22 11:09 04/07/22 13:25 Temperature 98.6 F 98.6 F 98.1 F Temperature Source Temporal Temporal Oral Pulse Rate 92 92 90 Respiratory Rate 20 H 20 H 18 Blood Pressure 105/58 L 105/58 L 119/60 Blood Pressure Mean 73 73 79 Pulse Ox 97 97 97 Oxygen Delivery Method Room Air Room Air Room Air 04/07/22 13:20 04/07/22 14:39 04/07/22 16:22 Temperature 98.1 F 98.3 F 98.2 F Temperature Source Temporal Oral Oral Pulse Rate 90 94 101 H Respiratory Rate 18 18 20 H Blood Pressure 119/60 122/60 H 154/53 H Blood Pressure Mean 79 80 86 Pulse Ox 97 98 95 Oxygen Delivery Method Room Air Room Air Room Air 04/07/22 17:12 Temperature 98.2 F Temperature Source Oral Pulse Rate 103 H Respiratory Rate 20 H Blood Pressure 98/46 L Blood Pressure Mean 63 Pulse Ox 100 Oxygen Delivery Method Room Air [facility] <TERRANCE Coulter - Last Filed: 04/07/22 18:14> [facility] Narrative Medical decision making narrative: Patient has a large sacral decubitus ulcer. Wound care was concerned it needs debridement but had no concern for acute infection. Patient appears well and nontoxic with normal vital signs. There is a very large stage IV sacral decubitus ulcer but I do not see any erythema, drainage, or acute necrotic tissue. Labs show white count of 12.2 and microcytic anemia of 8.1 is around his baseline. He does have an ION with creatinine of 2.4 up from a normal range a month ago. With his white count of 12, heart rate around 90, and ION this triggered a sepsis protocol however patient does not appear septic. CT of the pelvis with IV shows decubitus ulcer posterior to the coccyx and left inferior pubic ramus with no evidence of osteomyelitis. There is diffuse induration of the subcutaneous soft tissues but no emphysema and no abscess is noted. I consulted general surgery and Dr. Borrego said it looks like dry gangrene. He recommended admission to sort out his ION with planned surgical debridement on Sunday. He said he does not need antibiotics from his standpoint. Case discussed with the hospitalist for admission. Lab Data Attestation: I reviewed the patient's lab results. Labs: Laboratory Results - last 24 hr 04/07/22 04/07/22 04/07/22 12:02 12:02 12:02 WBC 12.2 H RBC 2.99 L Hgb 8.1 L Hct 26.5 L MCV 88.6 MCH 27.1 MCHC 30.6 L RDW Std Deviation 53.1 H RDW Coeff of Fei 16.2 H Plt Count 378 MPV 9.2 Immature Gran % (Auto) 4.200 H Neut % (Auto) 70.4 H Lymph % (Auto) 14.8 L [place] % (Auto) 6.8 Eos % (Auto) 3.3 Baso % (Auto) 0.5 Absolute Neuts (auto) 8.6 H Absolute Lymphs (auto) 1.80 Nucleated RBC % 0 Sodium 134 L Potassium 5.1 Chloride 102 Carbon Dioxide 24.0 Anion Gap 8 BUN 77 H Creatinine 2.14 H Estim Creat Clear Calc 43.82 Est GFR (MDRD) Af Amer 42 L Est GFR (MDRD) Non-Af 34 L BUN/Creatinine Ratio 36.0 H Glucose 171 H Calcium 10.7 H Phosphorus 4.5 Magnesium 2.4 Radiography Diagnostic Testing: Clinical Impression(s) from Imaging Studies Pelvis CT 04/07/22 11:22 IMPRESSION: There is now a decubitus ulcer posterior to the coccyx and posterior aspect of the left inferior pubic ramus. The ulcer cavities abut both the coccyx and the posterior left inferior pubic ramus but there is no CT evidence of associated osseous erosion or involvement. There are subtle sclerotic changes to the posterior aspect of the left inferior pubic ramus. Diffuse induration of the subcutaneous soft tissues and soft tissue swelling around the left inferior pubic ramus but no subcutaneous emphysema is noted. No organized abscess Diffuse osteopenia without evidence of fracture surgical hardware in the lumbar spine free of complication Fat-containing ventral hernia Retained stool Electronically Signed: Waldemar Sage MD at 13:21 EDT , <Dr. Jose Alfredo Jacobs, DO - Last Filed: 04/08/22 07:10> [facility] MDM Narrative Medical decision making narrative: This patient was seen with a PA/SCHOOL ATHLETIC DIRECTOR Individually assessed they patient including history and physical. I have reviewed everything on the chart that is available and agree with the documentation provided by the PA/SCHOOL ATHLETIC DIRECTOR including discussion about the assessment, treatment plan, discussion, and return precautions. Patient presenting today with concern for need of debridement. Patient showed photos of his sacral decubitus ulcers to wound care. They recommended coming to the ER for assessment and possible debridement. Patient states he has been feeling and does not have any pain from this. He does not feel physically ill. He states that he is not sure if it is much different than usual. Labwork was obtained and is slight leukocytosis of 12.2 and a stable hemoglobin 8.1. Patient's creatinine elevated today and he was given a liter of IV fluids. Nursing staff did note to me that he does trip SIRS criteria possibly sepsis however clinically I do not believe he is septic. General surgery consulted to evaluate the wound and recommended admission and surgical debridement Sunday. Patient has a large sacral decubitus ulcer. Wound care was concerned it needs debridement but had no concern for acute infection. Patient appears well and nontoxic with normal vital signs. There is a very large stage IV sacral decubitus ulcer but I do not see any erythema, drainage, or acute necrotic tissue. Labs show white count of 12.2 and microcytic anemia of 8.1 is around his baseline. He does have an ION with creatinine of 2.4 up from a normal range a month ago. With his white count of 12, heart rate around 90, and ION this triggered a sepsis protocol however patient does not appear septic. CT of the pelvis with IV shows decubitus ulcer posterior to the coccyx and left inferior pubic ramus with no evidence of osteomyelitis. There is diffuse induration of the subcutaneous soft tissues but no emphysema and no abscess is noted. I consulted general surgery and Dr. Borrego said it looks like dry gangrene. He recommended admission to sort out his ION with planned surgical debridement on Sunday. He said he does not need antibiotics from his standpoint. Case discussed with the hospitalist for admission. Lab Data Labs: Laboratory Results - last 24 hr 04/07/22 04/07/22 04/07/22 12:02 12:02 12:02 WBC 12.2 H RBC 2.99 L Hgb 8.1 L Hct 26.5 L MCV 88.6 MCH 27.1 MCHC 30.6 L RDW Std Deviation 53.1 H RDW Coeff of Fei 16.2 H Plt Count 378 MPV 9.2 Immature Gran % (Auto) 4.200 H Neut % (Auto) 70.4 H Lymph % (Auto) 14.8 L [place] % (Auto) 6.8 Eos % (Auto) 3.3 Baso % (Auto) 0.5 Absolute Neuts (auto) 8.6 H Absolute Lymphs (auto) 1.80 Nucleated RBC % 0 Sodium 134 L Potassium 5.1 Chloride 102 Carbon Dioxide 24.0 Anion Gap 8 BUN 77 H Creatinine 2.14 H Estim Creat Clear Calc 43.82 Est GFR (MDRD) Af Amer 42 L Est GFR (MDRD) Non-Af 34 L BUN/Creatinine Ratio 36.0 H Glucose 171 H Calcium 10.7 H Phosphorus 4.5 Magnesium 2.4 Radiography Diagnostic Testing: Clinical Impression(s) from Imaging Studies Pelvis CT 04/07/22 11:22 IMPRESSION: There is now a decubitus ulcer posterior to the coccyx and posterior aspect of the left inferior pubic ramus. The ulcer cavities abut both the coccyx and the posterior left inferior pubic ramus but there is no CT evidence of associated osseous erosion or involvement. There are subtle sclerotic changes to the posterior aspect of the left inferior pubic ramus. Diffuse induration of the subcutaneous soft tissues and soft tissue swelling around the left inferior pubic ramus but no subcutaneous emphysema is noted. No organized abscess Diffuse osteopenia without evidence of fracture surgical hardware in the lumbar spine free of complication Fat-containing ventral hernia Retained stool Electronically Signed: Waldemar Sage MD at 13:21 EDT , Discharge Plan Dx/Rx/DC Orders Clinical Impression: Acute kidney injury, Sacral decubitus ulcer, stage IV Disposition Disposition: Acute Care Hospital [facility] Discharge Date/Time: 04/07/22 19:45
[2022-04-07 12:13] LABS: Absolute Neutrophil Count 8.6 X10^3/uL (2.0-7.7); Basophil# 0.06 X10^3/uL; Basophil% 0.5 % (0-1); Eosinophils% 3.3 % (0-5); Hematocrit 26.5 % (40-54); Hemoglobin 8.1 g/dL (13.0-16.5); Lymphocyte % 14.8 % (19-41); Mean Corp Hgb Conc 30.6 g/dL (32-36); Mean Corpuscular Hgb 27.1 pg (27.0-32.0); Mean Corpuscular Volume 88.6 fL (80-94); Mean Platelet Vol. 9.2 fl (6.2-12.0); Monocyte# 0.83 X10^3/uL; Monocyte% 6.8 % (0-10); NRBC Flagged by Analyzer 0 % (0-5); Neutrophil % 70.4 % (47-70); Platelet Count 378 K/mm3 (150-450); RBC Distribution Width CV 16.2 % (11.6-14.6); RBC Distribution Width SD 53.1 fl (35.1-43.9); Red Blood Count 2.99 M/mm3 (4.6-6.2); White Blood Count 12.2 K/mm3 (4.4-11.0)
[2022-04-07 12:21] LABS: Anion Gap 8 (5-15); BUN 77 mg/dL (7-18); Calcium,Total 10.7 mg/dL (8.5-10.1); Chloride 102 mmol/L (98-107); Creatinine, Serum 2.14 mg/dL (0.70-1.30); EST Glomerular Filtration Rate 34 mL/min (>60); Est Glom Filt Rate - Afr Amer 42 mL/min (>60); Estimated Creatinine Clearance 43.82 ml/min; Glucose 171 mg/dL (74-106); Potassium 5.1 mmol/L (3.5-5.1); Sodium Level 134 mmol/L (136-145)
--- NOTE | 2022-04-07 12:45 | CM.ED ---
EDGAR Note EDGAR and RN OSMAR Gomez met with patient in his room. Patient resides with his mother, daughter and daughter's significant other. Patient said that he is doing ok at home. He said that his daughter's significant other helps him with transferring. SW asked if patient had a Ashley at home and he said no as I would have no room for it. Patient said that he would need to get rid of furniture (couch etc) to get a Ashley in the house. Patient voiced no discharge needs. SW remains available if needs arise. Plan: To be determined Deepali MAZARIEGOS
[2022-04-07] MEDS: 0.9% Normal Saline 1,000 ML 999 ML IV (13:24)
--- NOTE | 2022-04-07 13:39 | ED.RN ---
DR. FLEMING INFORMED OF SEPSIS ALERT. NO NEW ORDERS AT THIS TIME.
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
--- NOTE | 2022-04-07 17:23 | CM.ED ---
Addendum entered by Deepali Belcher 04/07/22 18:23: Patient is unsure if he has a [place] CM. Addendum entered by Deepali Belcher 04/07/22 17:53: EDGAR spoke to MD Borrego. He voiced that he felt patient needs DME at home and bariatric wound care. EDGAR is not aware of bariatric wound care provider at 4:20pm on Sunday. Thus, if felt that patient needed additional supports for a safe discharge and so discharge planning could occur then patient needs to be brought into the hospital for evaluation. Trevor Pate Updated Deepali Belcher CONTACT WORKER LISWS Original Note: EDGAR Note Information Source: Patient Family Present: None Patient resides at [address] [place] [address] PCP: [place] Patient is single. Insurance: Patient said I didn't know I had [place] till you just said it but stated he has been using [employer] HCPOA/Advanced Directives. Patient was given HCPOA and Living Will information and educated on how to complete the paperwork. [facility]: [facility] Lives with: Daughter, mom and daughter's boyfriend. Living Arrangement: Home ADL's: Patient reports that he is paraplegic and thus his mom and daughter help him dress and his mom and daughter help him sit up in bed and his daughter's boyfriend, Sonido, helps him get out of the wheelchair and into bed.Patient said that his mom transfers him to the chair. Employed: Disabled Smoke: Denied ETOH: Denied Patient reports he feels safe living at home Transportation: Patient has [employer] for transportation. Patient said that he has the following DME equipment: [facility] Bed Grab bars for the bed Hand held shower Wheelchair (20 and 22 inches) Sliding Board Patient said that he was denied for having a medic alert due to my attitude and them saying it was not safe and not having a back up. Patient has a CPAP at home and uses 4 units but the CPAP broke last nigh and so he called [employer] about the clip and they said I wasn't eligible for one so I bought them off [employer]. Patient has home health RN through [facility] Patient reports he has not been approved for the waiver and I am fighting them . Patient reports he has a [facility] from [facility]. Patient reports he private pays for home health aides from [employer] 1 day a week for a bath. Patient reports his plan is to go home and his daughter and mom will care for him. Patient said I don't want to go back to a chcf because they don't take good care of you and my legs were black . Patient got a Mckinney on Sunday or Sunday and his mom assists him with a training potty and then he is emptying the mckinney. Patient said that sine he has a Mckinney he has less accidents. SW asked patient if there was anything that he needs at home to be successful and safe and he said Ashley pads not the 2 straps. Patient said that the wound center had been able to manage him when he weighed 500 lbs and when asked why the difference today he referenced that he felt someone was not doing their job. Patient reports he has not had PT/OT since his rotator surgery last year and then I had 12 PT sessions and they left me hanging. Patient voiced that he has bed bugs but they have a timers inspector company from [employer] come out and get rid of them and he had 16 traps come in the mail today. Patient said that he is currently at his baseline with functioning and doing good but stated if I need to go somewhere I have to do that. EDGAR provided patient with HCPOA and Living Will information. Patient has the following [facility] Patient reports he wants to go home at discharge. Deepali MAZARIEGOS
--- NOTE | 2022-04-07 17:39 | EKG12_ITS ---
Test Reason : PRE OP Blood Pressure : / mmHG Vent. Rate : 100 BPM Atrial Rate : 100 BPM P-R Int : 184 ms QRS Dur : 084 ms QT Int : 332 ms P-R-T Axes : 046 013 040 degrees QTc Int : 428 ms Normal sinus rhythm Low voltage QRS Borderline ECG Confirmed by CORNELIUS EL, TRISTIAN ([id number]), editor farm journal JAHAIRA RAJAN ([id number]) on 04/11/2022 9:41:54 AM Referred By: Confirmed By:TRISTIAN SHIELDS MD
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
[2022-04-07 18:46] LABS: Magnesium 2.4 mg/dL (1.6-2.6); Phosphorus 4.5 mg/dL (2.5-4.9)
--- NOTE | 2022-04-07 19:59 | NURSING ---
per pt report. pt was weighed in the ER bed. pt weight was 396 pounds. Weight function on the bed on MS3 is not working at this time
[2022-04-07] MEDS: 0.9% Saline Lock 10 ML Syringe IV (20:15)
[2022-04-07] MEDS: 0.9% Normal Saline 1,000 ML 100 ML IV (20:15)
[2022-04-07] MEDS: Doxazosin 1 MG Tablet PO (22:37)
[2022-04-07] MEDS: Senna/Docusate Sodium 1 Tablet 2 TABLET PO (22:37)
[2022-04-07] MEDS: Atorvastatin Calcium 20 MG Tablet PO (22:37)
[2022-04-07] MEDS: Heparin Injection (Vial) 5,000 UNIT/ML VIAL 5000 UNIT SC (22:38)
[2022-04-07] MEDS: Insulin Glargine-YFGN 100 UNIT/ML Pen 40 UNIT SC (22:38)
[2022-04-07] MEDS: Glucerna Shake 120 ML LIQUID PO (22:42)
[2022-04-07] MEDS: Gabapentin 300 MG Capsule PO (22:42)
[2022-04-07] MEDS: Acetaminophen 325 MG Tablet 650 MG PO (22:52)
[2022-04-07 23:05] LABS: Bedside Glucose 144 mg/dL (74-106)
[2022-04-07] MEDS: DAKIN'S SOL HALF STRENGTH (=0.25%) 1 APPLIC TOPICAL (23:29)
[2022-04-07 23:30] LABS: Mucous, Urine 0 SEEN /hpf (<or=2+); Squamous Epithelial Cells - UA 0 SEEN /hpf (0-5)
[2022-04-07 23:38] LABS: Color, Urine Yellow (Yellow); Glucose, Dipstick Normal (Normal); Ketone-Dipstick Negative (Negative); Leukocyte Esterase-Dipstick 500 /ul (Negative); Nitrite-Dipstick Negative (Negative); Occult Blood-Urine 50 /ul (Negative); Protein-Dipstick 30 mg/dl (Negative); Urine Bilirubin Dipstick Negative (Negative); Urine Clarity Clear (Clear); Urine Urobilinogen Normal (Normal); Urine pH 6.5 (5.0 - 8.0)
[2022-04-07 23:45] LABS: Bacteria 2+ /hpf (None Seen); Red Blood Cells-Urine 0-5 SEEN /hpf (0-5)
[2022-04-07 23:46] LABS: White Blood Cells 25-50 SEEN /hpf (0-5)
[2022-04-08] VITALS (7 sets, daily range): BP systolic 97–130; BP diastolic 42–69; PULSE 77–92; RESP 16–24; TEMP 36.6–37.3; O2SAT 95–100
[2022-04-08] MEDS: 0.9% Normal Saline 1,000 ML 100 ML IV (05:05)
[2022-04-08] MEDS: Heparin Injection (Vial) 5,000 UNIT/ML VIAL 5000 UNIT SC ×3 (05:07→22:33)
[2022-04-08 07:06] LABS: Bedside Glucose 140 mg/dL (74-106)
[2022-04-08] MEDS: Insulin U-500 UNITS/ML PEN 50 UNITS SC ×3 (08:24→17:05)
[2022-04-08] MEDS: Multivitamins,Therapeutic Tablet 1 TABLET PO (08:25)
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
[2022-04-08 09:15] LABS: Absolute Lymphocyte Count 1.32 X10^3/uL (0.83-4.51); Absolute Neutrophil Count 7.4 X10^3/uL (2.0-7.7); Basophil# 0.04 X10^3/uL; Basophil% 0.4 % (0-1); Eosinophil# 0.46 X10^3/uL; Eosinophils% 4.5 % (0-5); Hematocrit 24.3 % (40-54); Hemoglobin 7.4 g/dL (13.0-16.5); Lymphocyte # 1.32 X10^3/ul (0.83-4.51); Lymphocyte % 12.9 % (19-41); Mean Corp Hgb Conc 30.5 g/dL (32-36); Mean Corpuscular Hgb 26.3 pg (27.0-32.0); Mean Corpuscular Volume 86.5 fL (80-94); Mean Platelet Vol. 9.7 fl (6.2-12.0); Monocyte% 6.9 % (0-10); NRBC Flagged by Analyzer 0 % (0-5); Neutrophil # 7.41 X10^3/uL (2.7-7.7); Neutrophil % 72.6 % (47-70); Platelet Count 408 K/mm3 (150-450); RBC Distribution Width CV 16.2 % (11.6-14.6); RBC Distribution Width SD 51.3 fl (35.1-43.9); Red Blood Count 2.81 M/mm3 (4.6-6.2); White Blood Count 10.2 K/mm3 (4.4-11.0)
[2022-04-08] MEDS: DAKIN'S SOL HALF STRENGTH (=0.25%) 1 APPLIC TOPICAL (09:25)
[2022-04-08] MEDS: Senna/Docusate Sodium 1 Tablet 2 TABLET PO ×2 (09:26→22:32)
[2022-04-08] MEDS: Gabapentin 300 MG Capsule PO ×4 (09:28→22:26)
[2022-04-08] MEDS: Insulin Glargine-YFGN 100 UNIT/ML Pen 40 UNIT SC ×2 (09:29→22:32)
[2022-04-08] MEDS: Glucerna Shake 120 ML LIQUID PO ×2 (09:35→17:08)
[2022-04-08 09:42] LABS: Anion Gap 7 (5-15); BUN 66 mg/dL (7-18); BUN/Creat Ratio 37.3 RATIO (10-20); Calcium,Total 10.1 mg/dL (8.5-10.1); Chloride 106 mmol/L (98-107); Creatinine, Serum 1.77 mg/dL (0.70-1.30); EST Glomerular Filtration Rate 43 mL/min (>60); Est Glom Filt Rate - Afr Amer 52 mL/min (>60); Estimated Creatinine Clearance 52.98 ml/min; Glucose 189 mg/dL (74-106); Potassium 5.2 mmol/L (3.5-5.1); Sodium Level 134 mmol/L (136-145)
[2022-04-08 09:51] LABS: Bedside Glucose 211 mg/dL (74-106)
--- NOTE | 2022-04-08 11:54 | CASEMGMT ---
Social Work SW met w/pt in room in regard to discharge plan. Pt would prefer to go home if possible. Pt has been to [facility] in the past and states that they got me sick. Pt states having surgery Sunday or Sunday. We spoke about the possibility of pt needing SNF at discharge. SW did provide to pt a list of usp facilities from [facility], that takes pt's insurance, can meet pt's needs and in pt's preferred geographic area complete with quality and resource use data. SW explained that SW/CM will follow up with him next week to review what is needed and make an appropriate plan w/the pt. Pt states [facility] was the only other place that would consider taking him other than [facility], last time he needed placement. Pt did also explain to SW that having a Ashley lift pad to put under him in his wheelchair would be helpful. Then this can be used to get pt up and moved via Ashley lift at [facility], should he be able to return home from here. SW/CM will continue to follow for discharge needs. EVELYN London
--- NOTE | 2022-04-08 12:23 | PN.SURG_ITS ---
Subjective Subjective Patient seen and examined during AM rounds. He is found resting in bed on my initial arrival to the room. He states that he had a little bit of difficulty getting to sleep, but is otherwise without complaint. Objective Data Objective Data Vital Signs: Vital Signs Temp Pulse Resp BP Pulse Ox O2 Del Method FiO2 99.1 F 92 16 97/42 L 100 Room Air 36 04/08/22 08:39 04/08/22 08:39 04/08/22 08:39 04/08/22 08:39 04/08/22 11:48 04/08/22 08:46 04/08/22 03:22 Oxygen Delivery Method Room Air Weight: 873 lb 0.488 oz Body Mass Index (BMI) 53.6 Intake & Output: Intake and Output for Last 24 Hours 04/06/22 04/07/22 04/08/22 23:59 23:59 23:59 Intake Total 1500 / 1500 1283.33 / 1283.33 Output Total 2950 / 2950 400 / 400 Balance -1450 / -1450 883.33 / 883.33 Lab / Micro Data Result Diagrams: 04/08/22 08:50 04/08/22 08:50 Labs: Laboratory Results - last 24 hr 04/07/22 12:02: Phosphorus 4.5, Magnesium 2.4 04/07/22 22:33: POC Glucose 144 H 04/07/22 22:45: Urine Color Yellow, Urine Clarity Clear, Urine pH 6.5, Ur Specific [place] 1.010, Urine Protein 30 H, Urine Glucose (UA) Normal, Urine Ketones Negative, Urine Occult Blood 50 H, Urine Nitrite Negative, Urine Bilirubin Negative, Urine Urobilinogen Normal, Ur Leukocyte Esterase 500 H, Urine RBC 0-5 SEEN, Urine WBC 25-50 SEEN, Ur Squamous Epith Cells 0 SEEN, Urine Bacteria 2+, Urine Mucus 0 SEEN 04/08/22 06:43: POC Glucose 140 H 04/08/22 08:50: WBC 10.2, RBC 2.81 L, Hgb 7.4 L, Hct 24.3 L, MCV 86.5, MCH 26.3 L, MCHC 30.5 L, RDW Std Deviation 51.3 H, RDW Coeff of Fei 16.2 H, Plt Count 408, MPV 9.7, Immature Gran % (Auto) 2.700 H, Neut % (Auto) 72.6 H, Lymph % (Auto) 12.9 L, Louis[place] % (Auto) 6.9, Eos % (Auto) 4.5, Baso % (Auto) 0.4, Absolute Neuts (auto) 7.4, Absolute Lymphs (auto) 1.32, Nucleated RBC % 0 04/08/22 08:50: Sodium 134 L, Potassium 5.2 H, Chloride 106, Carbon Dioxide 21.0, Anion Gap 7, BUN 66 H, Creatinine 1.77 H, Estim Creat Clear Calc 52.98, Est GFR (MDRD) Af Amer 52 L, Est GFR (MDRD) Non-Af 43 L, BUN/Creatinine Ratio 37.3 H, Glucose 189 H, Calcium 10.1 04/08/22 09:32: POC Glucose 211 H Radiography Diagnostic Testing: Radiology Impression Pelvis CT 04/07/22 11:22 IMPRESSION: There is now a decubitus ulcer posterior to the coccyx and posterior aspect of the left inferior pubic ramus. The ulcer cavities abut both the coccyx and the posterior left inferior pubic ramus but there is no CT evidence of associated osseous erosion or involvement. There are subtle sclerotic changes to the posterior aspect of the left inferior pubic ramus. Diffuse induration of the subcutaneous soft tissues and soft tissue swelling around the left inferior pubic ramus but no subcutaneous emphysema is noted. No organized abscess Diffuse osteopenia without evidence of fracture surgical hardware in the lumbar spine free of complication Fat-containing ventral hernia Retained stool Electronically Signed: Waldemar Sage MD at 13:21 EDT Reading Location ID and State: [address] [place] [address] , Service support , Physical Exam Const oriented x3 and no apparent distress Resp Resp Narrative: Mildly increased work of breathing noted Skin Skin Narrative: Large, chronic stage IV sacral decubitus ulcer is stable from yesterday's exam, however, there is slight amount of contamination from his fecal stream inferiorl y near his anus. There is some necrotic tissue along the right wall of the patient's wound. There are no areas of loculated drainage in the drainage from the wound is largely serous. Assessment & Plan Assessment/Plan (1) Sacral decubitus ulcer, stage IV: PLAN: 51-year-old male with numerous medical issues including paraplegia, diabetes, morbid obesity, and chronic sacral decubitus ulcer. He is admitted for management of this ulcer as well as acute kidney injury. Overall his wound appears stable on exam today. I would like to plan for twice daily wet-to-dry dressing changes and alternating Dakin soaked Kerlix versus plain saline soaked Kerlix. This has been clarified with nursing. With wound examination I do not find any overt signs of infection to warrant empiric antibiotic coverage. Tentatively planning for operative debridement early next week. In the interim patient requires coordination with case management and social work to ensure a sound discharge plan. He will need ongoing wound care and his current situation does not seem to be sufficient to meet his needs. Charges/Coding Visit Charges Inpatient E&M: 71723 Subs Hosp L2
[2022-04-08] MEDS: Juven (unflavored) Packet 1 PACKET PO (17:10)
[2022-04-08 17:21] LABS: Bedside Glucose 166 mg/dL (74-106)
[2022-04-08 17:35] LABS: Bedside Glucose 160 mg/dL (74-106)
[2022-04-08] MEDS: Atorvastatin Calcium 20 MG Tablet PO (22:32)
[2022-04-08] MEDS: Doxazosin 1 MG Tablet PO (22:32)
[2022-04-08 23:20] LABS: Bedside Glucose 146 mg/dL (74-106)
[2022-04-09] VITALS (12 sets, daily range): BP systolic 110–147; BP diastolic 56–69; PULSE 75–100; RESP 12–25; TEMP 37.2–37.6; O2SAT 93–98
[2022-04-09] MEDS: Heparin Injection (Vial) 5,000 UNIT/ML VIAL 5000 UNIT SC ×3 (06:16→22:02)
[2022-04-09 07:11] LABS: Bedside Glucose 123 mg/dL (74-106)
[2022-04-09 07:32] LABS: Absolute Lymphocyte Count 1.57 X10^3/uL (0.83-4.51); Absolute Neutrophil Count 7.6 X10^3/uL (2.0-7.7); Basophil# 0.04 X10^3/uL; Basophil% 0.4 % (0-1); Eosinophil# 0.43 X10^3/uL; Hematocrit 22.6 % (40-54); Hemoglobin 6.9 g/dL (13.0-16.5); Lymphocyte # 1.57 X10^3/ul (0.83-4.51); Lymphocyte % 14.5 % (19-41); Mean Corp Hgb Conc 30.5 g/dL (32-36); Mean Corpuscular Hgb 26.4 pg (27.0-32.0); Mean Corpuscular Volume 86.6 fL (80-94); Monocyte% 8.3 % (0-10); NRBC Flagged by Analyzer 0 % (0-5); Neutrophil # 7.56 X10^3/uL (2.7-7.7); Neutrophil % 69.8 % (47-70); Platelet Count 387 K/mm3 (150-450); RBC Distribution Width CV 16.2 % (11.6-14.6); RBC Distribution Width SD 51.7 fl (35.1-43.9); Red Blood Count 2.61 M/mm3 (4.6-6.2); White Blood Count 10.8 K/mm3 (4.4-11.0)
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
[2022-04-09 07:49] LABS: Anion Gap 8 (5-15); BUN 52 mg/dL (7-18); BUN/Creat Ratio 40.6 RATIO (10-20); Calcium,Total 10.2 mg/dL (8.5-10.1); Chloride 104 mmol/L (98-107); Creatinine, Serum 1.28 mg/dL (0.70-1.30); EST Glomerular Filtration Rate 62 mL/min (>60); Est Glom Filt Rate - Afr Amer 75 mL/min (>60); Estimated Creatinine Clearance 73.26 ml/min; Glucose 129 mg/dL (74-106); Potassium 4.9 mmol/L (3.5-5.1); Sodium Level 132 mmol/L (136-145)
[2022-04-09 08:01] LABS: Bedside Glucose 128 mg/dL (74-106)
[2022-04-09] MEDS: Acetaminophen 325 MG Tablet 650 MG PO ×4 (08:05→21:50)
[2022-04-09] MEDS: Glucerna Shake 120 ML LIQUID PO ×3 (08:05→17:13)
[2022-04-09] MEDS: Juven (unflavored) Packet 1 PACKET PO ×2 (08:08→17:09)
[2022-04-09] MEDS: Multivitamins,Therapeutic Tablet 1 TABLET PO (08:09)
[2022-04-09 09:07] LABS: Platelet Count 376 K/mm3 (150-450); RET-HE 29.8 pg (30-35); Reticulocyte Count 1.54 % (0.5-1.5)
[2022-04-09] MEDS: DAKIN'S SOL HALF STRENGTH (=0.25%) 1 APPLIC TOPICAL (09:22)
[2022-04-09 09:23] LABS: Urine Chloride 61 mmol/L (Not Establ.); Urine Sodium 44 mmol/L (Not Establ.)
[2022-04-09] MEDS: Senna/Docusate Sodium 1 Tablet 2 TABLET PO ×2 (09:23→21:57)
[2022-04-09] MEDS: Gabapentin 300 MG Capsule PO ×4 (09:27→21:49)
[2022-04-09] MEDS: 0.9% Saline Lock 10 ML Syringe IV ×2 (09:33→12:45)
[2022-04-09 09:37] LABS: Osmolality, Serum 299 mOsm/KG (275-295)
[2022-04-09 09:37] LABS: Osmolality, Urine 505 mOsm/KG
[2022-04-09] MEDS: Insulin Glargine-YFGN 100 UNIT/ML Pen 40 UNIT SC ×2 (09:38→21:58)
[2022-04-09 09:41] LABS: AST(SGOT) 21 U/L (15-37); Alanine Aminotransfer ALT/SGPT 36 U/L (16-61); Albumin, Serum 2.3 g/dL (3.2-5.0); Alkaline Phosphatase 107 U/L (45-117); Bilirubin, Direct 0.15 mg/dL (0.00-0.30); Ferritin 902 ng/mL (26-388); Globulin 5.2 g/dL (2.2-4.2); Iron 24 ug/dL (65-175); Iron Binding Capacity,Total 157 ug/dL (250-450); Protein, Total 7.5 g/dL (6.4-8.2)
[2022-04-09 09:51] LABS: Bedside Glucose 212 mg/dL (74-106)
[2022-04-09 11:45] LABS: Bedside Glucose 190 mg/dL (74-106)
[2022-04-09 11:59] LABS: International Normalized Ratio 1.3; Prothrombin Time (Protime)PT. 15.9 SECONDS (11.7-14.9)
[2022-04-09 12:00] LABS: Partial Thromboplast Time 34.8 Seconds (24.1-36.2)
--- NOTE | 2022-04-09 12:28 | CASEMGMT ---
Readmission chart review: 03/11-03/16/22 Sepsis 04/07/22-current Pt initially was sent from [facility] for SOB, dark/cloudy urine and wound to sacrum. Wound nurse was consulted during admission and pt declined to go back to SNF at discharge d/t social concerns with daughter and food stamps. See multiple CM and SW notes from this visit. Pt insisted to go home at discharge and have mother/16yo daughter to assist in caring for him. Pt did agree to [facility] and was set up thru . Pt also had referral sent to waiver program and DEENA PRASAD assisted in facilitating [employer] to work on hospital bed situation at home with pt. Pt had wound center appt scheduled for 04/07/22 and they did not have a chris pad per notes and were unable to transfer pt so pt was sent to [facility] ED for worsening of sacral wound and Dr. Borrego plans to take pt to surgery early this week for debridement. Pt did f/u with Dr. Baez on 04/06/22. CM to follow for further discharge planning/needs. Pt was provided list of SNF's by [facility]. Michelle SHAFFER CM
[2022-04-09] MEDS: Insulin U-500 UNITS/ML PEN 50 UNITS SC ×2 (12:46→17:09)
[2022-04-09 17:30] LABS: Bedside Glucose 166 mg/dL (74-106)
--- NOTE | 2022-04-09 17:41 | PN.SURG_ITS ---
Subjective Subjective Patient was seen and examined during AM rounds. He reports no acute events overnight. He was visited during a wound change. Objective Data Objective Data Vital Signs: Vital Signs Temp Pulse Resp BP Pulse Ox O2 Del Method O2 Flow Rate 99.6 F H 93 18 147/69 H 95 Room Air 4 04/09/22 15:56 04/09/22 15:56 04/09/22 15:56 04/09/22 15:56 04/09/22 15:56 04/09/22 15:56 04/09/22 14:52 FiO2 36 04/09/22 14:52 Oxygen Flow Rate (L/min) 4 Oxygen Delivery Method Room Air Weight: 396 lb Body Mass Index (BMI) 53.6 Intake & Output: Intake and Output for Last 24 Hours 04/07/22 04/08/22 04/09/22 23:59 23:59 23:59 Intake Total 1500 / 1500 3733.33 / 3733.33 1600 / 1600 Output Total 2950 / 2950 3700 / 3700 2250 / 2250 Balance -1450 / -1450 33.33 / 33.33 -650 / -650 Lab / Micro Data Result Diagrams: 04/09/22 06:05 04/09/22 06:05 Labs: Laboratory Results - last 24 hr 04/08/22 22:29: POC Glucose 146 H 04/09/22 06:05: WBC 10.8, RBC 2.61 L, Hgb 6.9 L, Hct 22.6 L, MCV 86.6, MCH 26.4 L, MCHC 30.5 L, RDW Std Deviation 51.7 H, RDW Coeff of Fei 16.2 H, Plt Count 38 7, MPV 10.0, Immature Gran % (Auto) 3.000 H, Neut % (Auto) 69.8, Lymph % (Auto) 14.5 L, [place] % (Auto) 8.3, Eos % (Auto) 4.0, Baso % (Auto) 0.4, Absolute Neuts (auto) 7.6, Absolute Lymphs (auto) 1.57, Nucleated RBC % 0 04/09/22 06:05: Sodium 132 L, Potassium 4.9, Chloride 104, Carbon Dioxide 20.0 L , Anion Gap 8, BUN 52 H, Creatinine 1.28, Estim Creat Clear Calc 73.26, Est GFR (MDRD) Af Amer 75, Est GFR (MDRD) Non-Af 62, BUN/Creatinine Ratio 40.6 H, Glucose 129 H, Calcium 10.2 H 04/09/22 06:14: POC Glucose 123 H 04/09/22 07:43: POC Glucose 128 H 04/09/22 08:20: Urine Osmolality 505, Ur Random Sodium 44, Urine Potassium 36.0, Urine Chloride 61 04/09/22 08:45: Blood Type O POSITIVE, Antibody Screen NEGATIVE, Crossmatch See Detail 04/09/22 08:45: Retic Count 1.54 H, Immature Retic Fraction 15.30, Retic Hgb Equivalent 29.8 L 04/09/22 08:45: Iron 24 L, TIBC 157 L, Ferritin 902 H, Total Bilirubin 0.30, Direct Bilirubin 0.15, AST 21, ALT 36, Alkaline Phosphatase 107, Total Protein 7.5, Albumin 2.3 L, Globulin 5.2 H, Folate 19.60 04/09/22 08:45: Serum Osmolality 299 H 04/09/22 09:30: POC Glucose 212 H 04/09/22 11:27: POC Glucose 190 H 04/09/22 11:37: PT 15.9 H, INR 1.3, APTT 34.8 04/09/22 17:07: POC Glucose 166 H Micro: Microbiology 04/09/22 10:05 Stool Stool Occult Blood (MARTHA) - Final Occult Blood Positive 04/07/22 22:45 Urine Catheter - Garcia Urine Culture - Preliminary Gram negative barry Physical Exam Const oriented x3 and no apparent distress Resp normal respiratory effort Skin Skin Narrative: Large, chronic stage IV sacral decubitus ulcer is again stable, and again, there is slight amount of contamination from his fecal stream inferiorly near his anus. There is some necrotic tissue along the right wall of the patient's wound. There are no areas of loculated drainage in the drainage from the wound is largely serous. I do feel some exposed sacrum at the base of the wound superiorly. Assessment & Plan Assessment/Plan (1) Sacral decubitus ulcer, stage IV: PLAN: 51-year-old male with numerous medical issues including paraplegia, giorgio betes, morbid obesity, and chronic sacral decubitus ulcer. He is admitted for management of this ulcer as well as acute kidney injury. Again, his wound appears stable on exam today. Today, I was able to confirm the presence of exposed sacrum and the superior aspect of the wound. Continue twice daily wet-to-dry dressing changes and alternating Dakin soaked Kerlix versus plain saline soaked Kerlix. Patient's ION has resolved, but he is profoundly anemic today so I have crossed him for 2 units and requested transfusion of 1 unit today. Tentatively planning for operative debridement tomorrow. Patient should be n.p.o. past midnight in anticipation of this procedure. In the interim patient requires coordination with case management and social work to ensure a sound discharge plan. He will need ongoing wound care and his current situation does not seem to be sufficient to meet his needs. Charges/Coding Visit Charges Inpatient E&M: 94945 Subs Hosp L2
[2022-04-09] MEDS: Glycerin/Hypromellose/PEG400 15 ml Bottle 1 DRP EACH EYE (21:47)
[2022-04-09] MEDS: Atorvastatin Calcium 20 MG Tablet PO (21:57)
[2022-04-09] MEDS: Doxazosin 1 MG Tablet PO (21:57)
[2022-04-09 22:25] LABS: Bedside Glucose 169 mg/dL (74-106)
[2022-04-10] VITALS (15 sets, daily range): BP systolic 105–142; BP diastolic 53–68; PULSE 72–92; RESP 14–22; TEMP 37.1–37.5; O2SAT 95–100; BMI 53.6
--- NOTE | 2022-04-10 | PRES_PTH ---
PATIENT: SERENITY MACHADO LOC: MS3 U#:[id number] AGE/SX: 51/M ROOM: [facility] RE04/07/[address]: Dr. Kevan Villar DO : 1970 BED: 1 DIS: 04/14/2022 SPEC #: [id number] RECD: 04/11/22 07:00 STATUS: JASPREET REQ #: [id number] NAVI: 04/10/22 00:[address]: Garfield Borrego DEPT: SURGICAL PATHOLOGY RECD BY: Franky Napoles ENTERED: 04/11/22 09:16 SP TYPE: PRESS SORE OTHR DR: MD Dr. Garfield Gay MD Dr. Mark Tereletsky, DO Dr. Prakash Chand, MD Dr. Paige Pierce, MD Dr. Robert Leininger, MD Tissues: A - Sacral region B - Sacral region C - Sacral region Procedures: Decalcification bone/plaque Surgery Specimen Level IV Surgery Specimen Level V Comments: @ Ordering doctor for DEC edited from to @ vandana BOGGS at 04/11/22 142 @ Ordering doctor for SUIV edited from to @ by AMBROSE at 04/11/22 142 @ Submitting doctor edited from to DR.MBORTZ Maribel BOGGS at 04/11/22 142 HEADER OPERATION: Operative debridement of chronic sacral decubitus wound PRE-OP DIAGNOSIS: Sacral decubitus ulcer TISSUE SUBMITTED: A ? Sacral fascia, B ? Sacral bone biopsy, C ? Right gluteal fat MICROSCOPIC DIAGNOSIS A. Sacral fascia, biopsy: Ulceration with associated acute and chronic inflammation and necrotic tissue debris. B. Sacral bone, biopsy: Acute osteomyelitis. C. Right gluteal fat, biopsy: Fibrofatty tissue with ulceration, acute and chronic inflammation and granulation. Focal fat necrosis. AM:bowen 04/14/2022 MICROSCOPIC DESCRIPTION Slides are reviewed. GROSS DESCRIPTION A - Received in fixative is one container labeled with the patient's name and designated sacral fascia. The specimen consists of an irregular and indurated fragment of light to dark torres soft tissue that measures 2.7 x 1 x 0.2 cm. The specimen is totally submitted in one cassette. B - Received in fixative is one container labeled with the patient's name and designated sacral bone biopsy. The specimen consists of two irregular fragments of torres bone measuring 1.5 x 0.5 x 0.2 cm. The specimen is totally submitted in one cassette after decalcification. C - Received in fixative is one container labeled with the patient's name and designated right gluteal fat. The specimen consists of an irregular fragment of light torres-yellow tissue measuring 2.5 x 1.8 x 1 cm. The specimen is sectioned and totally submitted in one cassette. / AM:bowen 04/11/2022 TC:2 CPT: 64470 x2, 19112, 50833
[2022-04-10] MEDS: Acetaminophen 325 MG Tablet 650 MG PO ×2 (05:46→18:56)
[2022-04-10 06:36] LABS: Bedside Glucose 125 mg/dL (74-106)
[2022-04-10 06:54] LABS: Absolute Lymphocyte Count 1.64 X10^3/uL (0.83-4.51); Absolute Neutrophil Count 6.7 X10^3/uL (2.0-7.7); Basophil# 0.05 X10^3/uL; Basophil% 0.5 % (0-1); Eosinophil# 0.39 X10^3/uL; Eosinophils% 3.9 % (0-5); Hematocrit 26.5 % (40-54); Hemoglobin 8.5 g/dL (13.0-16.5); Lymphocyte # 1.64 X10^3/ul (0.83-4.51); Lymphocyte % 16.4 % (19-41); Mean Corp Hgb Conc 32.1 g/dL (32-36); Mean Corpuscular Hgb 27.6 pg (27.0-32.0); Mean Platelet Vol. 9.8 fl (6.2-12.0); Monocyte# 0.78 X10^3/uL; Monocyte% 7.8 % (0-10); NRBC Flagged by Analyzer 0 % (0-5); Neutrophil # 6.72 X10^3/uL (2.7-7.7); Neutrophil % 67.2 % (47-70); Platelet Count 395 K/mm3 (150-450); RBC Distribution Width CV 15.6 % (11.6-14.6); RBC Distribution Width SD 49.2 fl (35.1-43.9); Red Blood Count 3.08 M/mm3 (4.6-6.2)
[2022-04-10 07:07] LABS: Anion Gap 6 (5-15); BUN 34 mg/dL (7-18); BUN/Creat Ratio 37.9 RATIO (10-20); Chloride 105 mmol/L (98-107); EST Glomerular Filtration Rate 94 mL/min (>60); Est Glom Filt Rate - Afr Amer 113 mL/min (>60); Estimated Creatinine Clearance 104.19 ml/min; Glucose 128 mg/dL (74-106); Potassium 4.6 mmol/L (3.5-5.1); Sodium Level 134 mmol/L (136-145)
[2022-04-10] MEDS: Lactated Ringers 1,000 ML 15 ML IV (08:00)
[2022-04-10 09:01] LABS: Hemoglobin A1c 6.7 % (3.8-5.6)
[2022-04-10 09:13] LABS: PTHIN 25.6 pg/mL (18.4-80.1)
[2022-04-10 09:17] LABS: Vitamin B12 507 pg/mL (211-911)
[2022-04-10] MEDS: DAKIN'S SOL HALF STRENGTH (=0.25%) 1 APPLIC TOPICAL (09:27)
[2022-04-10 09:42] LABS: HIV - WCH Non-Reactive (Nonreactive)
--- NOTE | 2022-04-10 09:48 | CASEMGMT ---
Social Work SW in to pt room to discuss d/c plan following discussion with wound care nurse, Karma, who pt reported to wanting to go to SNF. SW introduced self and role at the hospital. Pt agreeable to discussing discharge plan. A printed list of SNF providers including quality and resource use data and consistent with the patient?s preferred geographic region, medical needs, and insurance network via the [employer] Link. Pt reported already had this list from weekend SW. Pt preferred providers are [facility], [facility], and [facility], in order. SW notified discharge electrician station assistant, Maria Guadalupe Arora, of pt choices of SNF. Maria Guadalupe to send referral to [facility]. PLAN: [facility], pending acceptance and precert. JAVAD Villagomez
--- NOTE | 2022-04-10 09:59 | CASEMGMT ---
Discharge Law Office Assistant This ad copy writer sent referral to [facility]. Will follow up. Rachel DOTSON Pin Sticker
--- NOTE | 2022-04-10 10:10 | CASEMGMT ---
Addendum entered by Aleyda Gamboa 04/10/22 10:41: Notification from Angelita with [facility]. 2 lpm bled in to CPAP. Original Note: DEENA CM to pt's room. Pt in bed, no distress. [facility] and [facility]. Pt also reports hiring an aide from [employer] and private pays. Pt has a CPAP through [facility] with a bleed of 4L. PC to [facility] and spoke with Natalia. Natalia advised Pt has SN on M,W,F and an aide. The aide has not been to the home since the . Home Care is aware Pt is in the hospital and will be discharged to a SNF. Natalia requests a message to be sent through [employer] and completed at this time. Email to [employer] liaison to verify oxygen.
--- NOTE | 2022-04-10 10:26 | WOUNDNOTE ---
wound photo: sacrum
--- NOTE | 2022-04-10 10:27 | WOUNDNOTE ---
wound photo: left lateral ankle
--- NOTE | 2022-04-10 11:06 | CASEMGMT ---
Discharge Side Splitter This manual writer called and left a message for admissions in regards to referral. Will follow up. Rachel DOTSON Chief Of Surgery
[2022-04-10 12:55] LABS: Bedside Glucose 112 mg/dL (74-106)
--- NOTE | 2022-04-10 14:49 | CHAPLAIN ---
Type of Pastoral Visit ___ Initial Visit ___ Follow-up Visit ___ On-call Visit ___ General Patient Visit ___ Spiritual Assessment ___ Family Conference ___ Bereavement ___ Rapid Response ___ Code Blue ___ Other (describe below) Pastoral Care Referral From ___ Patient ___ Family ___ Nurse ___ Physician ___ Ticket Machine Operator ___ Disability Counselor ___ Other (describe below) Sacrament/Intervention ___ Active listening ___ Anointing ___ Muslim ___ Bereavement ___ Communion ___ Freya exploration ___ ___ Life review ___ Prayer ___ Reconciliation ___ Sacrament of Sick ___ Supportive presence ___ Wedding ___ Other (describe below) Pastoral Comments patient and bed were out of the room; left a calling card
--- NOTE | 2022-04-10 17:02 | OP.PCM_ITS ---
Report of Operation Date of Procedure: 04/10/22 Pre-Operative Diagnosis: 1. Chronic sacral decubitus ulcer with exposed bone a nd containing necrotic soft tissue 2. Morbid obesity 3. Paraplegia Post-Operative Diagnosis: Same Surgery/Procedure Performed:: Debridement of sacral decubitus ulcer with bone and tissue biopsy Description of Surgical Findings:: ? Mild amount of necrotic adipose tissue in the right gluteal portion of the wound. ? Mild amount of necrotic sacral fascia ? Exposed sacrum and exposed posterior femoral head ? Final wound size: Main portion?13 cm wide x8.5 cm long x 1.5 cm deep Left leg?2 cm wide x 7 cm long bx 3 cm deep Undermining?left lateral: 4 cm, right lateral: 2.5 cm, superior: 4.5 cm Surgeon: Garfield Borrego care transitions manager: Alexander Hameed Type of Anesthesia: General/Supplemental Anesthesiologist: Curly Clark Specimen's removed: 1. Right gluteal fat for tissue culture 2. Sacral fascia for tissue culture 3. Sacrum for bone biopsy Estimated Blood Loss (mL): 100 Description of Procedure: After appropriate identification and confirming consents in the preoperative holding area the patient was brought to the operating room where he was positioned in the right lateral decubitus position. He was placed in pads strategically placed over his pubis and the small of his back to support him in this position. Preoperative antibiotics were administered by anesthesia. He then underwent MAC sedation and his prior sacral dressing was taken down and disposed. After standard prepping and draping a formal timeout was conducted to confirm patient and the procedure. Procedure was then commenced with shona ridement of necrotic tissue (primarily adipose) along the right gluteal aspect of the wound sharply back to bleeding tissue and a tissue culture was obtained for pathology and micro. Hemostasis was obtained at this location. I then debrided the necrotic fascia overlying the sacrum and submitted this as well for pathology and micro as a tissue specimen. Patient's sacrum was exposed so I obtained a bone biopsy of this area using a rongeur. Again hemostasis was obtained with use of electrocautery and manual pressure. I lastly performed limited sharp debridement of both the patient's left superior lateral aspect of the wound and along the pocket posteriorly along his left leg. After obtaining hemostasis in these locations, I performed gentle curettage of the wound base back to bleeding tissue. Again selective electrocautery was used to obtain hemostasis. Once were satisfied with this hemostasis the wound was measured (dimensions are given above) and packed with Dakin's soaked Kerlix (a total of 1.5 rolls was required in layers knotted together. A third roll of Kerlix was folded upon itself to provide a absorbent fluff then abdominal pad dressings were placed atop this layer to complete her dressing which was taped into place. Complications None Admit VTE Documentation VTE Present on Admission: Yes VTE Mechan Device Prophylaxis: SCD's Wound Center CF Procedures [id number]: 20554 RMVL DEVITAL TIS 20 CM/< Multi Select Codes Wound Center CF Procedures [id number]: 03536 RMVL DEVITAL TIS 20 CM/<
[2022-04-10] MEDS: Gabapentin 300 MG Capsule PO ×2 (17:43→21:26)
[2022-04-10 18:01] LABS: Bedside Glucose 96 mg/dL (74-106)
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
[2022-04-10] MEDS: Atorvastatin Calcium 20 MG Tablet PO (21:25)
[2022-04-10] MEDS: Doxazosin 1 MG Tablet PO (21:25)
[2022-04-10] MEDS: Heparin Injection (Vial) 5,000 UNIT/ML VIAL 5000 UNIT SC (21:25)
[2022-04-10] MEDS: Insulin Glargine-YFGN 100 UNIT/ML Pen 40 UNIT SC (21:26)
[2022-04-10] MEDS: Senna/Docusate Sodium 1 Tablet 2 TABLET PO (21:26)
[2022-04-10 23:11] LABS: Bedside Glucose 163 mg/dL (74-106)
--- NOTE | 2022-04-10 23:52 | NURSING ---
Pt refused dressing change tonight because he just had it dressed by physician during I & D in the evening.
[2022-04-11] VITALS (9 sets, daily range): BP systolic 119–156; BP diastolic 65–78; PULSE 72–90; RESP 16–26; TEMP 36.6–37.2; O2SAT 95–99
[2022-04-11] MEDS: Heparin Injection (Vial) 5,000 UNIT/ML VIAL 5000 UNIT SC ×3 (05:09→22:31)
[2022-04-11] MEDS: Acetaminophen 325 MG Tablet 650 MG PO ×3 (05:10→19:36)
[2022-04-11 06:08] LABS: HEPATITIS B SURFACE AG Negative (Negative); Hep C Antibodies <0.1 s/co ratio (0.0-0.9); Hepatitis A IgM Antibody Negative (Negative); Hepatitis B Core AB IgM Negative (Negative)
[2022-04-11 06:29] LABS: Absolute Lymphocyte Count 1.32 X10^3/uL (0.83-4.51); Absolute Neutrophil Count 6.6 X10^3/uL (2.0-7.7); Basophil# 0.06 X10^3/uL; Basophil% 0.6 % (0-1); Eosinophils% 3.2 % (0-5); Hematocrit 25.4 % (40-54); Hemoglobin 8.2 g/dL (13.0-16.5); Lymphocyte # 1.32 X10^3/ul (0.83-4.51); Lymphocyte % 14.1 % (19-41); Mean Corp Hgb Conc 32.3 g/dL (32-36); Mean Corpuscular Hgb 27.6 pg (27.0-32.0); Mean Corpuscular Volume 85.5 fL (80-94); Mean Platelet Vol. 9.3 fl (6.2-12.0); Monocyte# 0.75 X10^3/uL; NRBC Flagged by Analyzer 0 % (0-5); Neutrophil # 6.62 X10^3/uL (2.7-7.7); Neutrophil % 70.5 % (47-70); Platelet Count 394 K/mm3 (150-450); RBC Distribution Width CV 15.5 % (11.6-14.6); RBC Distribution Width SD 48.5 fl (35.1-43.9); Red Blood Count 2.97 M/mm3 (4.6-6.2); White Blood Count 9.4 K/mm3 (4.4-11.0)
[2022-04-11 06:50] LABS: Anion Gap 7 (5-15); BUN 21 mg/dL (7-18); BUN/Creat Ratio 26.1 RATIO (10-20); Calcium,Total 10.2 mg/dL (8.5-10.1); Chloride 103 mmol/L (98-107); EST Glomerular Filtration Rate 106 mL/min (>60); Est Glom Filt Rate - Afr Amer 129 mL/min (>60); Estimated Creatinine Clearance 117.21 ml/min; Glucose 156 mg/dL (74-106); Potassium 4.5 mmol/L (3.5-5.1); Sodium Level 133 mmol/L (136-145)
--- NOTE | 2022-04-11 08:18 | PN.SURG_ITS ---
Subjective Subjective Patient was seen and examined during AM rounds. He denies any acute events overnight. Objective Data Objective Data Vital Signs: Vital Signs Temp Pulse Resp BP Pulse Ox O2 Del Method O2 Flow Rate 98 F 78 18 119/69 96 Room Air 4 04/11/22 03:39 04/11/22 03:39 04/11/22 03:39 04/11/22 03:39 04/11/22 03:39 04/11/22 03:39 04/11/22 03:39 FiO2 30 04/11/22 03:39 Oxygen Flow Rate (L/min) 4 Oxygen Delivery Method Room Air Weight: 396 lb Body Mass Index (BMI) 53.6 Intake & Output: Intake and Output for Last 24 Hours 04/09/22 04/10/22 04/11/22 23:59 23:59 23:59 Intake Total 3400 / 3400 758.5 / 758.5 1050 / 1050 Output Total 5200 / 5200 2500 / 2500 1200 / 1200 Balance -1800 / -1800 -1741.5 / -1741.5 -150 / -150 Lab / Micro Data Result Diagrams: 04/11/22 05:50 04/11/22 05:50 Labs: Laboratory Results - last 24 hr 04/09/22 08:45: Vitamin B12 507 04/09/22 08:45: PTH Intact 25.6 04/09/22 08:45: HIV 1&2 Antibody Non-Reactive 04/10/22 05:15: Hemoglobin A1c 6.7 H 04/10/22 12:22: POC Glucose 112 H 04/10/22 17:41: POC Glucose 96 04/10/22 21:17: POC Glucose 163 H 04/11/22 05:50: WBC 9.4, RBC 2.97 L, Hgb 8.2 L, Hct 25.4 L, MCV 85.5, MCH 27.6, MCHC 32.3, RDW Std Deviation 48.5 H, RDW Coeff of Fei 15.5 H, Plt Count 394, MPV 9.3, Immature Gran % (Auto) 3.600 H, Neut % (Auto) 70.5 H, Lymph % (Auto) 14.1 L , [place] % (Auto) 8.0, Eos % (Auto) 3.2, Baso % (Auto) 0.6, Absolute Neuts (auto) 6.6, Absolute Lymphs (auto) 1.32, Nucleated RBC % 0 04/11/22 05:50: Sodium 133 L, Potassium 4.5, Chloride 103, Carbon Dioxide 23.0, Anion Gap 7, BUN 21 H, Creatinine 0.80, Estim Creat Clear Calc 117.21, Est GFR (MDRD) Af Amer 129, Est GFR (MDRD) Non-Af 106, BUN/Creatinine Ratio 26.1 H, Glucose 156 H, Calcium 10.2 H Micro: Microbiology 04/07/22 16:17 Blood Culture (Wb) - Anticubital Right Blood Culture - Preliminary No growth in 48 hours. 04/07/22 22:45 Urine Catheter - Garcia Urine Culture - Final Proteus mirabilis 04/09/22 10:05 Stool Stool Occult Blood (MARTHA) - Final Occult Blood Positive Physical Exam Const oriented x3 and no apparent distress Resp normal respiratory effort Skin Skin Narrative: Large chronic stage IV sacral decubitus ulcer with improved appearance. There is some cautery artifact along the right and left lateral most aspects of the wound, but the wound appears viable and there is healthy nonbleeding tissue along the wound base. Assessment & Plan Assessment/Plan (1) Sacral decubitus ulcer, stage IV: PLAN: 51-year-old male with numerous medical issues including paraplegia, diabetes, morbid obesity, and chronic sacral decubitus ulcer. He is now postop day 1 from operative wound debridement. Both tissue and bone cultures were obtained. Given the involvement of the bone, medicine requested empiric antibiotic coverage yesterday with Zosyn. We have also agreed to consult infectious disease for assistance with antimicrobials given probable osteomyelitis. Today, patient's wound is viable and there is been no contamination from his fecal stream. At this point recommend following up results of tissue and bone cultures and continuing wound packing twice daily as previous. Recommend coordination with case management to arrive at a workable discharge plan that includes regular wound surveillance/minor debridements as necessary. Charges/Coding Visit Charges Inpatient E&M: 06348 Subs Hosp L2
[2022-04-11] MEDS: Insulin U-500 UNITS/ML PEN 50 UNITS SC ×3 (08:22→17:19)
[2022-04-11] MEDS: Insulin Glargine-YFGN 100 UNIT/ML Pen 40 UNIT SC ×2 (08:22→23:43)
[2022-04-11] MEDS: Senna/Docusate Sodium 1 Tablet 2 TABLET PO ×2 (08:25→22:32)
[2022-04-11] MEDS: Multivitamins,Therapeutic Tablet 1 TABLET PO (08:25)
[2022-04-11] MEDS: Gabapentin 300 MG Capsule PO ×4 (08:27→22:36)
[2022-04-11] MEDS: DAKIN'S SOL HALF STRENGTH (=0.25%) 1 APPLIC TOPICAL (08:27)
[2022-04-11 08:50] LABS: Bedside Glucose 186 mg/dL (74-106)
[2022-04-11] MEDS: Juven (unflavored) Packet 1 PACKET PO ×2 (09:17→17:20)
--- NOTE | 2022-04-11 09:25 | WOUNDNOTE ---
wound photo: sacrum
--- NOTE | 2022-04-11 09:41 | WOUNDNOTE ---
Pt was disimpacted for a large amount of soft brown stool with dressing change this am.
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
--- NOTE | 2022-04-11 10:10 | CASEMGMT ---
Discharge Supervisor [employer] Called and left a voice mail in regards to referral. Rachel DOTSON Crew Foreman
[2022-04-11] MEDS: Glucerna Shake 120 ML LIQUID PO ×2 (12:02→17:23)
[2022-04-11] MEDS: Ferrous Sulfate 325 MG Tablet PO ×2 (12:03→17:20)
[2022-04-11 12:25] LABS: Bedside Glucose 173 mg/dL (74-106)
--- NOTE | 2022-04-11 12:29 | PCM.RX.CS ---
Consult Pharmacy has been consulted to manage selected antiobiotic: Vancomycin Type of Consult: New start Suspected Infection: Osteomyelitis Labs: Sodium 133 mmol/L (136-145) L 04/11/22 05:50 Potassium 4.5 mmol/L (3.5-5.1) 04/11/22 05:50 Chloride 103 mmol/L (98-107) 04/11/22 05:50 Carbon Dioxide 23.0 mmol/L (21.0-32.0) 04/11/22 05:50 Anion Gap 7 (5-15) 04/11/22 05:50 BUN 21 mg/dL (7-18) H 04/11/22 05:50 Creatinine 0.80 mg/dL (0.70-1.30) 04/11/22 05:50 Est GFR (MDRD) Af Amer 129 mL/min (>60) 04/11/22 05:50 Est GFR (MDRD) Non-Af 106 mL/min (>60) 04/11/22 05:50 BUN/Creatinine Ratio 26.1 RATIO (10-20) H 04/11/22 05:50 Glucose 156 mg/dL (74-106) H 04/11/22 05:50 Microbiology: Microbiology 04/10/22 16:02 Tissue - Sacral Pressure Sore Gram Stain - Final 04/10/22 16:02 Tissue - Sacral Pressure Sore Wound Culture - Preliminary Gram positive organism 04/10/22 16:00 Tissue - Sacral Pressure Sore Gram Stain - Final 04/10/22 16:00 Tissue - Sacral Pressure Sore Wound Culture - Preliminary Gram negative barry Mixed Gram Positive Organisms 04/10/22 15:38 Bone - Sacral Bone Gram Stain - Final 04/10/22 15:38 Bone - Sacral Bone Wound Culture - Preliminary Beta hemolytic organism 04/07/22 16:17 Blood Culture (Wb) - Anticubital Right Blood Culture - Preliminary No growth in 48 hours. 04/07/22 22:45 Urine Catheter - Garcia Urine Culture - Final Proteus mirabilis 04/09/22 10:05 Stool Stool Occult Blood (MARTHA) - Final Occult Blood Positive Goal Trough: 15-20 mcg/mL Pharmacy Plan for Drug Dosing: NEW START IV VANCOMYCIN Consulting Physician: Dr. Neda Chou Indication: Goal Trough: 15-20 SrCr: 0.8 CrCl: 148 mls/min (using an adjusted body weight of 116kg) Comments: pt received a 2000mg (25mg/kg) loading dose on 04/11/22 at 1010 Vancomycin Dose: based on pts weight and renal function, recommend an initial dose of 1500mg q8h starting 04/11/22 at 1800. trough before the 4th total dose note pt is paraplegic which has the potential to alter dosing Pending Level: 04/12/22 at 0930 Pharmacy Service will continue to monitor and adjust dosing as required. Follow-Up Labs: Trough Vancomycin - 04/12/22 @ 0930
--- NOTE | 2022-04-11 12:40 | CHAPLAIN ---
Type of Pastoral Visit _x__ Initial Visit ___ Follow-up Visit ___ On-call Visit ___ General Patient Visit ___ Spiritual Assessment ___ Family Conference ___ Bereavement ___ Rapid Response ___ Code Blue ___ Other (describe below) Pastoral Care Referral From _x__ Patient ___ Family ___ Nurse ___ Physician ___ Opening Machine Cleaner ___ Slurry Control Tender ___ Other (describe below) Sacrament/Intervention _x__ Active listening ___ Anointing ___ Rastafari ___ Bereavement ___ Communion ___ Freya exploration ___ ___ Life review _x__ Prayer ___ Reconciliation ___ Sacrament of Sick _x__ Supportive presence ___ Wedding ___ Other (describe below) Pastoral Comments patient reports on his health status; pt shares his concerns about going to an SNF and what kind of care he will actually receive; pt states that he is bored and has very little to do except watch TV; pt did say that he used to read the Bible daily but has not recently; pt is offered a Bible and he receives it along with a prayer
--- NOTE | 2022-04-11 13:17 | CASEMGMT ---
Addendum entered by Nneka Gonzalez 04/11/22 13:26: SW sent referrals to [facility] at this time. JAVAD Villagomez Original Note: Social Work SW called Laura at [facility] to inquire about referral. Laura stated cannot accept pt due to pt need for manual removal of bowel movements. Laura stated legally the facility is unable to do this. SW to send referrals to second and third choices, [facility] now. JAVAD Villagomez
[2022-04-11] MEDS: Nystatin Powder 15gm Bottle 1 APPLIC TOPICAL ×2 (13:30→22:33)
--- NOTE | 2022-04-11 15:26 | CASEMGMT ---
Social Work SW received message from [facility]. Pt has been denied acceptance as care needs exceed current capacity. Israel Vargas also messaged. Reviewing pt case at this time. PLAN: [facility]argas, pending acceptance and precert. JAVAD Villagomez
--- NOTE | 2022-04-11 16:52 | PN.HOSP_ITS ---
Subjective Subjective Patient was seen and examined today, he denies any fevers or chills, patient was seen by infectious diseases today who recommended 6 weeks of additional antibiotic treatment. Patient will have a PICC line inserted. Objective Data Objective Data Vital Signs: Vital Signs Temp Pulse Resp BP Pulse Ox O2 Del Method O2 Flow Rate 98.9 F 90 16 146/74 H 95 Room Air 4 04/11/22 14:55 04/11/22 14:55 04/11/22 14:55 04/11/22 14:55 04/11/22 14:55 04/11/22 14:55 04/11/22 03:39 FiO2 30 04/11/22 03:39 Oxygen Flow Rate (L/min) 4 Oxygen Delivery Method Room Air Weight: 179.623 kg Body Mass Index (BMI) 53.6 Intake & Output: Intake and Output for Last 24 Hours 04/09/22 04/10/22 04/11/22 23:59 23:59 23:59 Intake Total 3400 / 3400 758.5 / 758.5 2240 / 2240 Output Total 5200 / 5200 2500 / 2500 2200 / 2200 Balance -1800 / -1800 -1741.5 / -1741.5 40 / 40 Lab / Micro Data Result Diagrams: 04/11/22 05:50 04/11/22 05:50 Labs: Laboratory Results - last 24 hr 04/10/22 17:41: POC Glucose 96 04/10/22 21:17: POC Glucose 163 H 04/11/22 05:50: WBC 9.4, RBC 2.97 L, Hgb 8.2 L, Hct 25.4 L, MCV 85.5, MCH 27.6, MCHC 32.3, RDW Std Deviation 48.5 H, RDW Coeff of Fei 15.5 H, Plt Count 394, MPV 9.3, Immature Gran % (Auto) 3.600 H, Neut % (Auto) 70.5 H, Lymph % (Auto) 14.1 L , Clare % (Auto) 8.0, Eos % (Auto) 3.2, Baso % (Auto) 0.6, Absolute Neuts (auto) 6.6, Absolute Lymphs (auto) 1.32, Nucleated RBC % 0 04/11/22 05:50: Sodium 133 L, Potassium 4.5, Chloride 103, Carbon Dioxide 23.0, Anion Gap 7, BUN 21 H, Creatinine 0.80, Estim Creat Clear Calc 117.21, Est GFR (MDRD) Af Amer 129, Est GFR (MDRD) Non-Af 106, BUN/Creatinine Ratio 26.1 H, Glucose 156 H, Calcium 10.2 H 04/11/22 08:20: POC Glucose 186 H 04/11/22 11:57: POC Glucose 173 H Micro: Microbiology 04/10/22 16:02 Tissue - Sacral Pressure Sore Gram Stain - Final 04/10/22 16:02 Tissue - Sacral Pressure Sore Wound Culture - Preliminary Gram positive organism 04/10/22 16:00 Tissue - Sacral Pressure Sore Gram Stain - Final 04/10/22 16:00 Tissue - Sacral Pressure Sore Wound Culture - Preliminary Gram negative barry Mixed Gram Positive Organisms 04/10/22 15:38 Bone - Sacral Bone Gram Stain - Final 04/10/22 15:38 Bone - Sacral Bone Wound Culture - Preliminary Beta hemolytic organism 04/07/22 16:17 Blood Culture (Wb) - Anticubital Right Blood Culture - Preliminary No growth in 48 hours. 04/07/22 22:45 Urine Catheter - Garcia Urine Culture - Final Proteus mirabilis 04/09/22 10:05 Stool Stool Occult Blood (MARTHA) - Final Occult Blood Positive Physical Exam Narrative alert, oriented x3 and no apparent distress Constitutional Narrative: Patient is morbidly obese, he has generalized wasting of the lower extremities General Appearance: cooperative and well kempt Orientation / Consciousness: awake, oriented to person, oriented to place and oriented to time HEENT normocephalic, head/scalp atraumatic and moist oral mucous membranes Eyes PERRL, EOMs intact bilaterally and conjunctivae normal Neck supple, no JVD and thyroid normal General: trachea midline Resp normal respiratory effort, no retractions, no use of accessory muscles and clear to auscultation bilaterally Auscultation: Negative for rales, rhonchi or wheezes Cardio regular rate, regular rhythm, S1 normal heart sound, S2 normal heart sound, no murmurs, no rub and no gallops GI normal to inspection, nondistended, normoactive bowel sounds, soft to palpation, non-tender and non-distended GI Narrative: Patient is morbidly obese Extremity Extremity Narrative: Generalized wasting of the lower extremities are noted Neuro oriented x3 and CN's II-XII intact bilaterally Neuro Narrative: Patient has paraplegia Sensorium / Orientation: awake, alert, oriented to person, oriented to place and oriented to time Speech: speech normal Psych affect normal Assessment & Plan Assessment/Plan (1) Sacral osteomyelitis: (2) Sacral decubitus ulcer, stage IV: PLAN: Plan 1. Chronic stage IV sacral and buttocks pressure injury with acute infection and necrosis-patient remains on IV antibiotic coverage per infectious diseases- he is currently on Zosyn and vancomycin, again patient will have a PICC line inserted for antibiotic treatment. Patient states that he was not advised to have a colostomy due to his obesity, patient states he is actively trying to lose weight. #2 acute kidney injury-resolved at this time, monitor BMP, creatinine today 0.8 #3 morbid obesity-complicates care, management, recovery, and prognosis #4 essential hypertension-continue present medications #5 chronic anemia-iron deficiency anemia, patient will be given iron supplementation #6 hyperlipidemia-patient is on Lipitor #7 type 2 diabetes-patient is currently on basal insulin and is receiving short acting insulin as well as sliding scale insulin per protocol #8 neurogenic bladder-patient currently has a chronic indwelling Garcia Charges/Coding Visit Charges Inpatient E&M: 41503 Subs Hosp L2
[2022-04-11 17:45] LABS: Bedside Glucose 188 mg/dL (74-106)
[2022-04-11] MEDS: 0.9% Saline Lock 10 ML Syringe IV (18:11)
[2022-04-11] MEDS: Doxazosin 1 MG Tablet PO (22:31)
[2022-04-11] MEDS: Atorvastatin Calcium 20 MG Tablet PO (22:31)
[2022-04-11] MEDS: Glycerin/Hypromellose/PEG400 15 ml Bottle 1 DRP EACH EYE (22:39)
[2022-04-11 23:05] LABS: Bedside Glucose 174 mg/dL (74-106)
[2022-04-12] VITALS (12 sets, daily range): BP systolic 125–141; BP diastolic 66–79; PULSE 72–88; RESP 14–24; TEMP 36.7–37.1; O2SAT 94–99
[2022-04-12] MEDS: Nystatin Powder 15gm Bottle 1 APPLIC TOPICAL ×3 (06:40→22:50)
[2022-04-12] MEDS: Heparin Injection (Vial) 5,000 UNIT/ML VIAL 5000 UNIT SC ×3 (06:40→22:49)
[2022-04-12] MEDS: Acetaminophen 325 MG Tablet 650 MG PO ×3 (06:45→20:14)
[2022-04-12] MEDS: Glucerna Shake 120 ML LIQUID PO ×3 (06:46→16:55)
[2022-04-12 07:07] LABS: Hematocrit 26.4 % (40-54); Hemoglobin 8.3 g/dL (13.0-16.5); Mean Corp Hgb Conc 31.4 g/dL (32-36); Mean Corpuscular Hgb 27.2 pg (27.0-32.0); Mean Corpuscular Volume 86.6 fL (80-94); Mean Platelet Vol. 9.5 fl (6.2-12.0); POSITIVE COUNT YES; POSITIVE MORPHOLOGY YES; Platelet Count 413 K/mm3 (150-450); RBC Distribution Width CV 15.3 % (11.6-14.6); RBC Distribution Width SD 48.6 fl (35.1-43.9); Red Blood Count 3.05 M/mm3 (4.6-6.2); White Blood Count 8.1 K/mm3 (4.4-11.0)
[2022-04-12 07:10] LABS: Differential Indicated MANUAL DIFF
[2022-04-12 07:30] LABS: Basophil 1 % (0-1); Eosinophil 5 % (0-5); Lymphocyte 19 % (19-41); Metamyelocyte 2 % (0-1); Monocyte 5 % (0-10); Myelocyte 2 % (0-0); Neutrophil-Band 2 % (0-5); Neutrophil-Segmented 64 % (47-70); Platelet Estimate ADEQUATE (ADEQ); Red Cell Morphology NORM C+C NORMAL (NORM C&C); Total Cells Counted 100 (MANUAL DIFF)
[2022-04-12 07:31] LABS: Absolute Lymphocyte Count 1.53 X10^3/uL (0.83-4.51); Absolute Neutrophil Count 5.3 X10^3/uL (2.0-7.7); Lymphocyte # 1.53 X10^3/ul (0.83-4.51); Neutrophil # 5.32 X10^3/uL (2.7-7.7)
[2022-04-12 07:51] LABS: Anion Gap 6 (5-15); BUN 21 mg/dL (7-18); BUN/Creat Ratio 28.5 RATIO (10-20); Calcium,Total 10.1 mg/dL (8.5-10.1); Chloride 103 mmol/L (98-107); Creatinine, Serum 0.74 mg/dL (0.70-1.30); EST Glomerular Filtration Rate 118 mL/min (>60); Est Glom Filt Rate - Afr Amer 143 mL/min (>60); Estimated Creatinine Clearance 126.71 ml/min; Glucose 132 mg/dL (74-106); Potassium 4.1 mmol/L (3.5-5.1); Sodium Level 133 mmol/L (136-145)
[2022-04-12] MEDS: Insulin U-500 UNITS/ML PEN 50 UNITS SC ×3 (09:05→16:56)
[2022-04-12] MEDS: Juven (unflavored) Packet 1 PACKET PO ×2 (09:06→16:55)
[2022-04-12] MEDS: Ferrous Sulfate 325 MG Tablet PO ×2 (09:07→16:56)
[2022-04-12] MEDS: Multivitamins,Therapeutic Tablet 1 TABLET PO (09:07)
[2022-04-12] MEDS: Senna/Docusate Sodium 1 Tablet 2 TABLET PO ×2 (09:07→22:49)
[2022-04-12] MEDS: DAKIN'S SOL HALF STRENGTH (=0.25%) 1 APPLIC TOPICAL (09:08)
[2022-04-12] MEDS: Insulin Glargine-YFGN 100 UNIT/ML Pen 40 UNIT SC ×2 (09:09→22:47)
[2022-04-12] MEDS: Gabapentin 300 MG Capsule PO ×4 (09:15→22:53)
[2022-04-12 09:20] LABS: Bedside Glucose 139 mg/dL (74-106)
--- NOTE | 2022-04-12 10:56 | PN.SURG_ITS ---
Subjective Subjective Patient seen during AM rounds. He describes no acute events overnight. He reports that he may be considered for discharge to a nursing facility later today. Wound nursing has contacted me to inform me that patient's wound dressing change went well and wound has a stable to improved appearance today. Objective Data Objective Data Vital Signs: Vital Signs Temp Pulse Resp BP Pulse Ox O2 Del Method O2 Flow Rate 98.6 F 88 18 133/66 H 94 Room Air 4 04/12/22 10:42 04/12/22 10:42 04/12/22 10:42 04/12/22 10:42 04/12/22 10:42 04/12/22 10:42 04/12/22 10:42 FiO2 30 04/12/22 10:42 Oxygen Flow Rate (L/min) 4 Oxygen Delivery Method Room Air Weight: 396 lb Body Mass Index (BMI) 53.6 Intake & Output: Intake and Output for Last 24 Hours 04/10/22 04/11/22 04/12/22 23:59 23:59 23:59 Intake Total 758.5 / 758.5 3420 / 4220 1780 / 1780 Output Total 2500 / 2500 3000 / 3850 1750 / 1750 Balance -1741.5 / -1741.5 420 / 370 30 / 30 Lab / Micro Data Result Diagrams: 04/12/22 05:45 04/12/22 05:45 Labs: Laboratory Results - last 24 hr 04/09/22 08:45: Hepatitis A IgM Ab Negative, Hep Bs Antigen Negative, Hep B Core IgM Ab Negative, Hepatitis C Ab (EIA) <0.1, Hep C Ab Comment Comment 04/11/22 11:57: POC Glucose 173 H 04/11/22 17:19: POC Glucose 188 H 04/11/22 22:42: POC Glucose 174 H 04/12/22 05:45: WBC 8.1, RBC 3.05 L, Hgb 8.3 L, Hct 26.4 L, MCV 86.6, MCH 27.2, MCHC 31.4 L, RDW Std Deviation 48.6 H, RDW Coeff of Fei 15.3 H, Plt Count 413, MPV 9.5, Neut % (Auto) Not Reportable, Absolute Neuts (auto) 5.3, Absolute Lymphs (auto) 1.53, Total Counted 100, Neutrophils % (Manual) 64, Band Neutrophils % 2, Lymphocytes % (Manual) 19, Monocytes % (Manual) 5, Eosinophils % (Manual) 5, Basophils % (Manual) 1, Metamyelocytes % 2 H, Myelocytes % 2 H, Diff Path Review May , Platelet Estimate ADEQUATE, RBC Morphology NORM C+C 04/12/22 05:45: Sodium 133 L, Potassium 4.1, Chloride 103, Carbon Dioxide 24.0, Anion Gap 6, BUN 21 H, Creatinine 0.74, Estim Creat Clear Calc 126.71, Est GFR (MDRD) Af Amer 143, Est GFR (MDRD) Non-Af 118, BUN/Creatinine Ratio 28.5 H, Glucose 132 H, Calcium 10.1 04/12/22 08:07: POC Glucose 139 H Micro: Microbiology 04/10/22 16:00 Tissue - Sacral Pressure Sore Gram Stain - Final 04/10/22 16:00 Tissue - Sacral Pressure Sore Wound Culture - Preliminary Proteus mirabilis Gram positive barry Streptococcus group C 04/10/22 16:02 Tissue - Sacral Pressure Sore Gram Stain - Final 04/10/22 16:02 Tissue - Sacral Pressure Sore Wound Culture - Preliminary Streptococcus group C Gram positive barry 04/10/22 15:38 Bone - Sacral Bone Gram Stain - Final 04/10/22 15:38 Bone - Sacral Bone Wound Culture - Preliminary Gram Positive Cocci Streptococcus group C 04/07/22 16:17 Blood Culture (Wb) - Anticubital Right Blood Culture - Preliminary No growth in 48 hours. 04/07/22 22:45 Urine Catheter - Garcia Urine Culture - Final Proteus mirabilis 04/09/22 10:05 Stool Stool Occult Blood (MARTHA) - Final Occult Blood Positive Physical Exam Const oriented x3 and no apparent distress Resp normal respiratory effort Assessment & Plan Assessment/Plan (1) Sacral decubitus ulcer, stage IV: PLAN: 51-year-old male with numerous medical issues including paraplegia, diabetes, morbid obesity, and chronic sacral decubitus ulcer. He is now postop day 2 from operative wound debridement. Both tissue and bone cultures were obtained and remain pending, but preliminary results suggest mixed chelsie. Given the involvement of the bone, infectious disease has been consulted and recommended broadening antibiotic spectrum to include vancomycin as well as Zosyn. Today I received a favorable report from the nursing about patient's wound. Would continue twice daily dressing changes. Recommend coordination with case management to arrive at a workable discharge plan that includes regular wound surveillance/minor debridements as necessary. Charges/Coding Visit Charges Inpatient E&M: 59267 [facility] Hosp L1
[2022-04-12 12:00] LABS: Bedside Glucose 201 mg/dL (74-106)
[2022-04-12 12:47] LABS: Pathologist Review Reviewed
--- NOTE | 2022-04-12 14:05 | CASEMGMT ---
Addendum entered by Nneka Gonzalez 04/12/22 15:35: SW sent referrals to [facility] [place] and [facility]. SW included request of Dr that pt have wound care 2x daily in communications for referral. JAVAD Villagomez Original Note: Social Work SW notified pt [facility] unable to accept pt at this time. Discussed option of [facility]. Explained [facility] has not yet responded and SW would like to get backup options from pt. SW provided new list of expanded SNF options to pt. Pt reviewed and stated next choices would be [facility] and [facility]. Due to lack of communication from [facility] and limited options of SNF for pt due to level of care needed for wound and Bariatric status SW will send referrals to both options provided by pt. Pt reports does not have preference between either as both are 5 star facilities. PLAN: [facility] vs. [facility] vs. [facility] JAVAD Villagomez
[2022-04-12 14:09] LABS: PROELU- Alpha-1-Globulin,Ur 5.3 % (.); PROELU- Alpha-2-Globulin,Ur 29.1 % (.); PROELU- Beta Globulin, Ur 25.8 % (.); PROELU- Gamma Globulin, Ur 17.8 % (.); Total Protein, Ur 44.9 mg/dL (Not Estab.)
--- NOTE | 2022-04-12 14:14 | PCM.PN.ID ---
Physical Exam Narrative Feeling ok, no fever, no n/v. Const alert and no apparent distress Resp normal air movement and clear to auscultation bilaterally Cardio regular rate and regular rhythm GI soft to palpation, non-tender and non-distended Skin no rashes or lesions noted ID ID: Route of nutrition/ use of supplements: [] Nutritional Intake: [] IV Site: [] Garcia Catheter: [] Assessment & Plan Assessment/Plan (1) Paraplegia: (2) Sacral osteomyelitis: PLAN: Now s/p OR for I&D by Dr. Borrego 04/10/22. Surg cx with strep, GPR, and proteus. Recent wound cx with CoNSx2. Admitted with enterococcus bacteremia towards end of February. On zosyn/vanc. Plan on 6 weeks iv abx with unasyn, stop date 05/22/22. Pt reports not a candidate for diverting ostomy due to his weight. Will follow, ID followup in 2 weeks
[2022-04-12 17:26] LABS: Bedside Glucose 166 mg/dL (74-106)
--- NOTE | 2022-04-12 17:55 | PCM.PN.HOSP ---
Subjective Subjective Patient was seen and examined today, he does not complain of fevers or chills at this time. We are currently awaiting confirmation of a detention bed for the patient to be transferred to a detention facility for ongoing care. Objective Data Objective Data Vital Signs: Vital Signs Temp Pulse Resp BP Pulse Ox O2 Del Method O2 Flow Rate 98.8 F 87 18 132/69 H 98 Room Air 4 04/12/22 14:32 04/12/22 14:32 04/12/22 14:32 04/12/22 14:32 04/12/22 14:32 04/12/22 14:32 04/12/22 10:42 FiO2 30 04/12/22 10:42 Oxygen Flow Rate (L/min) 4 Oxygen Delivery Method Room Air Weight: 179.623 kg Body Mass Index (BMI) 53.6 Intake & Output: Intake and Output for Last 24 Hours 04/10/22 04/11/22 04/12/22 23:59 23:59 23:59 Intake Total 758.5 / 758.5 3420 / 4220 2522 / 2522 Output Total 2500 / 2500 3000 / 3850 2450 / 2450 Balance -1741.5 / -1741.5 420 / 370 72 / 72 Lab / Micro Data Result Diagrams: 04/12/22 05:45 04/12/22 05:45 Labs: Laboratory Results - last 24 hr 04/11/22 22:42: POC Glucose 174 H 04/12/22 05:45: WBC 8.1, RBC 3.05 L, Hgb 8.3 L, Hct 26.4 L, MCV 86.6, MCH 27.2, MCHC 31.4 L, RDW Std Deviation 48.6 H, RDW Coeff of Fei 15.3 H, Plt Count 413, MPV 9.5, Neut % (Auto) Not Reportable, Absolute Neuts (auto) 5.3, Absolute Lymphs (auto) 1.53, Total Counted 100, Neutrophils % (Manual) 64, Band Neutrophils % 2, Lymphocytes % (Manual) 19, Monocytes % (Manual) 5, Eosinophils % (Manual) 5, Basophils % (Manual) 1, Metamyelocytes % 2 H, Myelocytes % 2 H, Diff Path Review Reviewed, Platelet Estimate ADEQUATE, RBC Morphology NORM C+C 04/12/22 05:45: Sodium 133 L, Potassium 4.1, Chloride 103, Carbon Dioxide 24.0, Anion Gap 6, BUN 21 H, Creatinine 0.74, Estim Creat Clear Calc 126.71, Est GFR (MDRD) Af Amer 143, Est GFR (MDRD) Non-Af 118, BUN/Creatinine Ratio 28.5 H, Glucose 132 H, Calcium 10.1 04/12/22 08:07: POC Glucose 139 H 04/12/22 11:20: POC Glucose 201 H 04/12/22 16:54: POC Glucose 166 H Micro: Microbiology 04/10/22 16:00 Tissue - Sacral Pressure Sore Gram Stain - Final 04/10/22 16:00 Tissue - Sacral Pressure Sore Wound Culture - Preliminary Proteus mirabilis Gram positive barry Streptococcus group C 04/10/22 16:02 Tissue - Sacral Pressure Sore Gram Stain - Final 04/10/22 16:02 Tissue - Sacral Pressure Sore Wound Culture - Preliminary Streptococcus group C Gram positive barry 04/10/22 15:38 Bone - Sacral Bone Gram Stain - Final 04/10/22 15:38 Bone - Sacral Bone Wound Culture - Preliminary Gram Positive Cocci Streptococcus group C 04/07/22 16:17 Blood Culture (Wb) - Anticubital Right Blood Culture - Preliminary No growth in 48 hours. 04/07/22 22:45 Urine Catheter - Garcia Urine Culture - Final Proteus mirabilis 04/09/22 10:05 Stool Stool Occult Blood (MARTHA) - Final Occult Blood Positive Physical Exam Narrative alert, oriented x3 and no apparent distress Constitutional Narrative: Patient is morbidly obese, he has generalized wasting of the lower extremities General Appearance: cooperative and well kempt Orientation / Consciousness: awake, oriented to person, oriented to place and oriented to time HEENT normocephalic, head/scalp atraumatic and moist oral mucous membranes Eyes PERRL, EOMs intact bilaterally and conjunctivae normal Neck supple, no JVD and thyroid normal General: trachea midline Resp normal respiratory effort, no retractions, no use of accessory muscles and clear to auscultation bilaterally Auscultation: Negative for rales, rhonchi or wheezes Cardio regular rate, regular rhythm, S1 normal heart sound, S2 normal heart sound, no murmurs, no rub and no gallops GI normal to inspection, nondistended, normoactive bowel sounds, soft to palpation, non-tender and non-distended GI Narrative: Patient is morbidly obese Extremity Extremity Narrative: Generalized wasting of the lower extremities are noted Neuro oriented x3 and CN's II-XII intact bilaterally Neuro Narrative: Patient has paraplegia Sensorium / Orientation: awake, alert, oriented to person, oriented to place and oriented to time Speech: speech normal Psych affect normal Assessment & Plan Assessment/Plan (1) Sacral osteomyelitis: (2) Sacral decubitus ulcer, stage IV: PLAN: Plan 1. 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 Patient states that he was not advised to have a colostomy due to his obesity, patient states he is actively trying to lose weight. #2 acute kidney injury-resolved at this time, monitor BMP, creatinine today 0.8 #3 morbid obesity-complicates care, management, recovery, and prognosis #4 essential hypertension-continue present medications #5 chronic anemia-iron deficiency anemia, patient will be given iron supplementation #6 hyperlipidemia-patient is on Lipitor #7 type 2 diabetes-patient is currently on basal insulin and is receiving short acting insulin as well as sliding scale insulin per protocol #8 neurogenic bladder-patient currently has a chronic indwelling Garcia Charges/Coding Visit Charges Inpatient E&M: 53393 Subs Hosp L2
[2022-04-12 18:22] LABS: Vitamin D 1,25-Dihydroxy 16.7 pg/mL (24.8-81.5)
[2022-04-12] MEDS: Doxazosin 1 MG Tablet PO (22:50)
[2022-04-12] MEDS: Atorvastatin Calcium 20 MG Tablet PO (22:50)
[2022-04-12 23:45] LABS: Bedside Glucose 168 mg/dL (74-106)
[2022-04-13] VITALS (9 sets, daily range): BP systolic 126–138; BP diastolic 60–76; PULSE 73–93; RESP 16–25; TEMP 36.4–37.1; O2SAT 95–98
[2022-04-13] MEDS: Nystatin Powder 15gm Bottle 1 APPLIC TOPICAL ×3 (06:26→22:35)
[2022-04-13] MEDS: Heparin Injection (Vial) 5,000 UNIT/ML VIAL 5000 UNIT SC ×3 (06:34→22:34)
[2022-04-13] MEDS: Acetaminophen 325 MG Tablet 650 MG PO ×3 (06:40→19:59)
[2022-04-13] MEDS: Glucerna Shake 120 ML LIQUID PO ×3 (08:27→16:59)
[2022-04-13] MEDS: Multivitamins,Therapeutic Tablet 1 TABLET PO (08:27)
[2022-04-13] MEDS: Juven (unflavored) Packet 1 PACKET PO ×2 (08:27→16:59)
[2022-04-13] MEDS: Insulin U-500 UNITS/ML PEN 50 UNITS SC ×3 (08:28→17:03)
[2022-04-13 08:35] LABS: Bedside Glucose 129 mg/dL (74-106)
[2022-04-13] MEDS: DAKIN'S SOL HALF STRENGTH (=0.25%) 1 APPLIC TOPICAL (08:35)
--- NOTE | 2022-04-13 09:50 | CASEMGMT ---
Discharge Carrier Blower This staff writer reached out to [facility]. Got no answer so this staff writer left a voicemail. This staff writer also called the main line for facility and got no answer. Will keep following up. Rachel DOTSON Electronic Prep[employer] System Operator
--- NOTE | 2022-04-13 10:21 | PN.SURG_ITS ---
Subjective Subjective Patient seen and examined during AM rounds. He denies any acute events overnight. He denies any further word on placement on hospital discharge. He has several requests regarding improving his mobility while he was here in the hospital. Objective Data Objective Data Vital Signs: Vital Signs Temp Pulse Resp BP Pulse Ox O2 Del Method O2 Flow Rate 98.1 F 76 16 130/69 H 95 Room Air 4 04/13/22 08:14 04/13/22 08:14 04/13/22 08:14 04/13/22 08:14 04/13/22 08:14 04/13/22 08:14 04/12/22 22:30 FiO2 30 04/13/22 04:35 Oxygen Flow Rate (L/min) 4 Oxygen Delivery Method Room Air Weight: 396 lb Body Mass Index (BMI) 53.6 Intake & Output: Intake and Output for Last 24 Hours 04/11/22 04/12/22 04/13/22 23:59 23:59 23:59 Intake Total 3420 / 4220 2634 / 2634 112 / 112 Output Total 3000 / 3850 2450 / 3300 1450 / 1450 Balance 420 / 370 184 / -666 -1338 / -1338 Lab / Micro Data Result Diagrams: 04/12/22 05:45 04/12/22 05:45 Labs: Laboratory Results - last 24 hr 04/09/22 08:20: Urine Total Protein 44.9, Urine Albumin 22.0, U Hzvdg-0-Hmctxwea 5.3, U Abfju-4-Fhhtembg 29.1, U Beta Globulin 25.8, U Gamma Globulin 17.8, U PEP M-Hema , Urine Immunofixation Comment, Ur Immunofix PEP Note Comment 04/09/22 08:45: Crossmatch See Detail 04/09/22 08:45: Ionized Calcium 6.1 H 04/09/22 08:45: Vit D 1,25-Dihydroxy 16.7 L 04/12/22 05:45: Diff Path Review Reviewed 04/12/22 11:20: POC Glucose 201 H 04/12/22 16:54: POC Glucose 166 H 04/12/22 22:48: POC Glucose 168 H 04/13/22 08:13: POC Glucose 129 H Micro: Microbiology 04/10/22 16:02 Tissue - Sacral Pressure Sore Gram Stain - Final 04/10/22 16:02 Tissue - Sacral Pressure Sore Wound Culture - Final Streptococcus group C Corynebacterium striatum 04/10/22 16:02 Tissue - Sacral Pressure Sore Anaerobic Culture - Preliminary Checking for anaerobes, further studies to follow. 04/10/22 15:38 Bone - Sacral Bone Gram Stain - Final 04/10/22 15:38 Bone - Sacral Bone Wound Culture - Preliminary Strep anginosus Streptococcus group C 04/10/22 15:38 Bone - Sacral Bone Anaerobic Culture - Preliminary Checking for anaerobes, further studies to follow. 04/07/22 16:17 Blood Culture (Wb) - Anticubital Right Blood Culture - Final No growth in 5 days. 04/10/22 16:00 Tissue - Sacral Pressure Sore Gram Stain - Final 04/10/22 16:00 Tissue - Sacral Pressure Sore Wound Culture - Final Proteus mirabilis Corynebacterium striatum Streptococcus group C 04/07/22 22:45 Urine Catheter - Garcia Urine Culture - Final Proteus mirabilis 04/09/22 10:05 Stool Stool Occult Blood (MARTHA) - Final Occult Blood Positive Physical Exam Const oriented x3 and no apparent distress Resp normal respiratory effort Assessment & Plan Assessment/Plan (1) Sacral decubitus ulcer, stage IV: PLAN: 51-year-old male with numerous medical issues including paraplegia, diabetes, morbid obesity, and chronic sacral decubitus ulcer. He is now postop day 3 from operative wound debridement. Both tissue and bone cultures showing a number of bacterial species. Antibiotics have been tailored to current cultures. Patient pending PICC placement for ongoing antibiotic infusion needs. Would continue twice daily dressing changes. In the interim, patient requests a air mattress and we will work towards getting him a trapeze bar as well so that he is able to help offload his wound area. Recommend coordination with case management to arrive at a workable discharge plan that includes regular wound surveillance/minor debridements as necessary. Charges/Coding Visit Charges Inpatient E&M: 48552 [facility] Hosp L1
[2022-04-13] MEDS: Senna/Docusate Sodium 1 Tablet 2 TABLET PO ×2 (10:27→22:35)
--- NOTE | 2022-04-13 10:27 | CASEMGMT ---
Discharge Cat Skinner This bond writer got a call back from [facility]rn[facility]. Israel hernandez denied patient. EDGAR Blackwell notified. Will follow up on the referral that was sent to [facility]. Rachel DOTSON Assembly Loader
[2022-04-13] MEDS: Gabapentin 300 MG Capsule PO ×4 (10:29→22:35)
--- NOTE | 2022-04-13 11:37 | WOUNDNOTE ---
Pt was disimpacted for a moderate amount of soft brown stool prior to dressing change.
[2022-04-13 12:20] LABS: Bedside Glucose 205 mg/dL (74-106)
--- NOTE | 2022-04-13 12:43 | CASEMGMT ---
Addendum entered by Adriana Turner 04/13/22 15:58: Received tc from Ashlie at [facility], they will review the referral this evening. Provided her with SW phone to contact tomorrow. Addendum entered by Adriana Turner 04/13/22 15:40: Received message to send referral to [facility] in [facility] so referral can be viewed. Sent at this time specifying pt wanted to go to the [facility]. Addendum entered by Adriana Turner 04/13/22 15:24: TC to Elvia at [facility], pt chart has not been reviewed. She states it will be reviewed and [facility] Original Note: RN CM in to pt room, pt sitting up in bed. Discussed with patient that some SNF's are declining him due to his increased care needs. Discussed LTACH possibilities. Pt states he has been to [facility] in [place] and would be willing to go back. Provided pt with with a list of LTACH providers including quality and resource use data and consistent with the patient's preferred geographic region, medical needs and insurance network. Referral sent to [facility] per pt request via careport.
[2022-04-13] MEDS: Ferrous Sulfate 325 MG Tablet PO ×2 (12:44→17:00)
--- NOTE | 2022-04-13 13:58 | CASEMGMT ---
Discharge [employer] Repaire[employer] Antonella Handley denied patient. EDGAR Blackwell notified. Rachel DOTSON Objects Conservator
--- NOTE | 2022-04-13 15:01 | CASEMGMT ---
Social Work SW met with pt and informed that the following facilities have denied admission. [facility], [facility], [facility]. Pt reviewed list and next SNF choices are 1. [facility] 2. [facility] 3. [facility]. yessy Lerma/venessa sales service assistant updated and will send referrals. JAVAD Najera
--- NOTE | 2022-04-13 15:19 | CASEMGMT ---
Addendum entered by Maria Guadalupe Rahman 04/14/22 08:04: Discharge Manager Project Management This underwriter called [facility] Patient is over the facility weight limit of 350lbs Rachel Nuñez Addendum entered by Maria Guadalupe Rahman 04/14/22 07:43: Discharge Manager Project Management Jojo from the [facility] reached out. No beds available at this time. Rachel Nuñez Original Note: Discharge Manager Project Management This underwriter sent referral to [facility] via [facility] and called Jojo and left a message. Rachel Nuñez
--- NOTE | 2022-04-13 16:29 | PCM.PN.HOSP ---
Subjective Subjective Patient was seen and examined today, he does not complain of any fevers or chills, we are still awaiting approval for the patient's transfer to a long term facility for inpatient skilled services. Objective Data Objective Data Vital Signs: Vital Signs Temp Pulse Resp BP Pulse Ox O2 Del Method O2 Flow Rate 98.7 F 93 16 138/76 H 97 Room Air 4 04/13/22 14:51 04/13/22 14:51 04/13/22 14:51 04/13/22 14:51 04/13/22 14:51 04/13/22 14:51 04/12/22 22:30 FiO2 30 04/13/22 04:35 Oxygen Flow Rate (L/min) 4 Oxygen Delivery Method Room Air Weight: 179.623 kg Body Mass Index (BMI) 53.6 Intake & Output: Intake and Output for Last 24 Hours 04/11/22 04/12/22 04/13/22 23:59 23:59 23:59 Intake Total 3420 / 4220 2634 / 2634 112 / 112 Output Total 3000 / 3850 2450 / 3300 1450 / 1450 Balance 420 / 370 184 / -666 -1338 / -1338 Lab / Micro Data Result Diagrams: 04/12/22 05:45 04/12/22 05:45 Labs: Laboratory Results - last 24 hr 04/09/22 08:20: Urine Total Protein 44.9, Urine Albumin 22.0, U Zltfn-5-Rgzvlpac 5.3, U Upfsw-5-Usyncyru 29.1, U Beta Globulin 25.8, U Gamma Globulin 17.8, U PEP M-eHma , Urine Immunofixation Comment, Ur Immunofix PEP Note Comment 04/09/22 08:45: Crossmatch See Detail 04/09/22 08:45: Ionized Calcium 6.1 H 04/09/22 08:45: Vit D 1,25-Dihydroxy 16.7 L 04/12/22 16:54: POC Glucose 166 H 04/12/22 22:48: POC Glucose 168 H 04/13/22 08:13: POC Glucose 129 H 04/13/22 12:00: POC Glucose 205 H Micro: Microbiology 04/10/22 16:02 Tissue - Sacral Pressure Sore Gram Stain - Final 04/10/22 16:02 Tissue - Sacral Pressure Sore Wound Culture - Final Streptococcus group C Corynebacterium striatum 04/10/22 16:02 Tissue - Sacral Pressure Sore Anaerobic Culture - Preliminary Checking for anaerobes, further studies to follow. 04/10/22 15:38 Bone - Sacral Bone Gram Stain - Final 04/10/22 15:38 Bone - Sacral Bone Wound Culture - Preliminary Strep anginosus Streptococcus group C 04/10/22 15:38 Bone - Sacral Bone Anaerobic Culture - Preliminary Checking for anaerobes, further studies to follow. 04/07/22 16:17 Blood Culture (Wb) - Anticubital Right Blood Culture - Final No growth in 5 days. 04/10/22 16:00 Tissue - Sacral Pressure Sore Gram Stain - Final 04/10/22 16:00 Tissue - Sacral Pressure Sore Wound Culture - Final Proteus mirabilis Corynebacterium striatum Streptococcus group C 04/07/22 22:45 Urine Catheter - Garcia Urine Culture - Final Proteus mirabilis 04/09/22 10:05 Stool Stool Occult Blood (MARTHA) - Final Occult Blood Positive Physical Exam Narrative alert, oriented x3 and no apparent distress Constitutional Narrative: Patient is morbidly obese, he has generalized wasting of the lower extremities General Appearance: cooperative and well kempt Orientation / Consciousness: awake, oriented to person, oriented to place and oriented to time HEENT normocephalic, head/scalp atraumatic and moist oral mucous membranes Eyes PERRL, EOMs intact bilaterally and conjunctivae normal Neck supple, no JVD and thyroid normal General: trachea midline Resp normal respiratory effort, no retractions, no use of accessory muscles and clear to auscultation bilaterally Auscultation: Negative for rales, rhonchi or wheezes Cardio regular rate, regular rhythm, S1 normal heart sound, S2 normal heart sound, no murmurs, no rub and no gallops GI normal to inspection, nondistended, normoactive bowel sounds, soft to palpation, non-tender and non-distended GI Narrative: Patient is morbidly obese Extremity Extremity Narrative: Generalized wasting of the lower extremities are noted Neuro oriented x3 and CN's II-XII intact bilaterally Neuro Narrative: Patient has paraplegia Sensorium / Orientation: awake, alert, oriented to person, oriented to place and oriented to time Speech: speech normal Psych affect normal Assessment & Plan Assessment/Plan (1) Sacral osteomyelitis: (2) Sacral decubitus ulcer, stage IV: PLAN: Plan 1. 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 Patient states that he was not advised to have a colostomy due to his obesity, patient states he is actively trying to lose weight. #2 acute kidney injury-resolved at this time #3 morbid obesity-complicates care, management, recovery, and prognosis #4 essential hypertension-continue present medications #5 chronic anemia-iron deficiency anemia, patient will be given iron supplementation #6 hyperlipidemia-patient is on Lipitor #7 type 2 diabetes-patient is currently on basal insulin and is receiving short acting insulin as well as sliding scale insulin per protocol #8 neurogenic bladder-patient currently has a chronic indwelling Garcia Charges/Coding Visit Charges Inpatient E&M: 45513 Subs Hosp L2
[2022-04-13 17:30] LABS: Bedside Glucose 212 mg/dL (74-106)
[2022-04-13] MEDS: Insulin Glargine-YFGN 100 UNIT/ML Pen 40 UNIT SC (22:34)
[2022-04-13] MEDS: Atorvastatin Calcium 20 MG Tablet PO (22:35)
[2022-04-13] MEDS: Doxazosin 1 MG Tablet PO (22:35)
[2022-04-13 23:40] LABS: Bedside Glucose 158 mg/dL (74-106)
[2022-04-14] VITALS (7 sets, daily range): BP systolic 124–138; BP diastolic 62–74; PULSE 70–94; RESP 16–19; TEMP 36.6–37.2; O2SAT 96–100
[2022-04-14] MEDS: Nystatin Powder 15gm Bottle 1 APPLIC TOPICAL ×2 (05:43→14:17)
[2022-04-14] MEDS: Heparin Injection (Vial) 5,000 UNIT/ML VIAL 5000 UNIT SC ×2 (05:43→14:17)
[2022-04-14] MEDS: Acetaminophen 325 MG Tablet 650 MG PO ×2 (05:44→17:30)
--- NOTE | 2022-04-14 08:08 | CASEMGMT ---
Discharge Angiography Nurse This story writer sent referral to [facility]. Rachel DOTSON Alteration Tailor
[2022-04-14 08:20] LABS: Bedside Glucose 142 mg/dL (74-106)
[2022-04-14] MEDS: Glucerna Shake 120 ML LIQUID PO ×3 (08:20→17:26)
[2022-04-14] MEDS: Multivitamins,Therapeutic Tablet 1 TABLET PO (08:21)
[2022-04-14] MEDS: Insulin U-500 UNITS/ML PEN 50 UNITS SC ×3 (08:21→17:21)
[2022-04-14] MEDS: Juven (unflavored) Packet 1 PACKET PO ×2 (08:33→17:22)
--- NOTE | 2022-04-14 08:36 | CASEMGMT ---
Social Work SW received 2 messages from [facility] in [place] who states pt meets criteria for admission. Additional clinicals requested for precert to be started. EDGAR updated NAVDEEP Velarde. JAVAD Najera
[2022-04-14] MEDS: DAKIN'S SOL HALF STRENGTH (=0.25%) 1 APPLIC TOPICAL (10:16)
[2022-04-14] MEDS: Insulin Glargine-YFGN 100 UNIT/ML Pen 40 UNIT SC (10:26)
[2022-04-14] MEDS: Senna/Docusate Sodium 1 Tablet 2 TABLET PO (10:28)
--- NOTE | 2022-04-14 10:30 | CASEMGMT ---
DEENA PRASAD sent updated clinical to [facility] via [employer]. CM will continue to follow this patient and plan for a safe discharge.
[2022-04-14] MEDS: Gabapentin 300 MG Capsule PO ×3 (10:31→17:26)
--- NOTE | 2022-04-14 10:39 | CASEMGMT ---
Social Work SW met with pt and informed that [facility] in [place] can accept pt and precert will need to be obtained. SW also explained that [facility] cannot accept pt but referral is still out at [facility]. [facility] referral will not be cancelled until acceptance at [facility] is confirmed. Pt is agreeable. Plan: [facility] [place], pending precert JAVAD Najera
[2022-04-14 11:35] LABS: Bedside Glucose 207 mg/dL (74-106)
--- NOTE | 2022-04-14 12:10 | PN.SURG_ITS ---
Subjective Subjective Patient seen and examined during AM rounds. He denies any acute events overnight. I arrived just some time for the conclusion of his dressing change with nursing. They report that his wound is clean and there is been no stool contamination. Patient states that he is still pending acceptance with a penitentiary facility Objective Data Objective Data Vital Signs: Vital Signs Temp Pulse Resp BP Pulse Ox O2 Del Method O2 Flow Rate 99 F 80 18 138/74 H 97 Room Air 4 04/14/22 09:22 04/14/22 09:22 04/14/22 09:22 04/14/22 09:22 04/14/22 09:22 04/14/22 09:22 04/14/22 03:49 FiO2 30 04/14/22 04:43 Oxygen Flow Rate (L/min) 4 Oxygen Delivery Method Room Air Weight: 396 lb 0.015 oz Body Mass Index (BMI) 53.6 Intake & Output: Intake and Output for Last 24 Hours 04/12/22 04/13/22 04/14/22 23:59 23:59 23:59 Intake Total 2634 / 2634 586 / 986 712 / 712 Output Total 2450 / 3300 2750 / 3600 1850 / 1850 Balance 184 / -666 -2164 / -2614 -1138 / -1138 Lab / Micro Data Result Diagrams: 04/12/22 05:45 04/12/22 05:45 Labs: Laboratory Results - last 24 hr 04/13/22 12:00: POC Glucose 205 H 04/13/22 17:02: POC Glucose 212 H 04/13/22 22:33: POC Glucose 158 H 04/14/22 07:53: POC Glucose 142 H 04/14/22 11:14: POC Glucose 207 H Micro: Microbiology 04/10/22 16:02 Tissue - Sacral Pressure Sore Gram Stain - Final 04/10/22 16:02 Tissue - Sacral Pressure Sore Wound Culture - Final Streptococcus group C Corynebacterium striatum 04/10/22 16:02 Tissue - Sacral Pressure Sore Anaerobic Culture - Preliminary Checking for anaerobes, further studies to follow. 04/10/22 15:38 Bone - Sacral Bone Gram Stain - Final 04/10/22 15:38 Bone - Sacral Bone Wound Culture - Preliminary Strep anginosus Streptococcus group C 04/10/22 15:38 Bone - Sacral Bone Anaerobic Culture - Preliminary Checking for anaerobes, further studies to follow. 04/07/22 16:17 Blood Culture (Wb) - Anticubital Right Blood Culture - Final No growth in 5 days. 04/10/22 16:00 Tissue - Sacral Pressure Sore Gram Stain - Final 04/10/22 16:00 Tissue - Sacral Pressure Sore Wound Culture - Final Proteus mirabilis Corynebacterium striatum Streptococcus group C 04/07/22 22:45 Urine Catheter - Garcia Urine Culture - Final Proteus mirabilis 04/09/22 10:05 Stool Stool Occult Blood (MARTHA) - Final Occult Blood Positive Physical Exam Const oriented x3 and no apparent distress Resp normal respiratory effort Assessment & Plan Assessment/Plan (1) Sacral decubitus ulcer, stage IV: PLAN: 51-year-old male with numerous medical issues including paraplegia, diabetes, morbid obesity, and chronic sacral decubitus ulcer. He is now postop day 4 from operative wound debridement. Both tissue and bone cultures showing a number of bacterial species. Antibiotics have been tailored to current cultures. Patient therefore to require ongoing antibiotic coverage. Would continue twice daily dressing changes. Still awaiting air mattress to offload pressure to patient's chronic wound site. Per case management note, patient pending acceptance at select nursing facility
[2022-04-14] MEDS: Ferrous Sulfate 325 MG Tablet PO ×2 (12:39→17:21)
--- NOTE | 2022-04-14 15:41 | CASEMGMT ---
Discharge Regional Business Development Manager Jack reached out referral still in review. Jack wanted dietary notes. This feature writer sent them via [facility]. Rachel DOTSON Grain Broker And Market Operator
[2022-04-14] MEDS: Loratadine 10 MG Tablet PO (16:05)
--- NOTE | 2022-04-14 16:25 | PCM.PN.HOSP ---
Subjective Subjective Patient was seen and examined today, he complains of clear nasal drainage and itchy eyes, I have started him on Claritin 10 mg once a day. We are still awaiting confirmation from his insurance for the patient to go to either an LTAC or correction facility. Objective Data Objective Data Vital Signs: Vital Signs Temp Pulse Resp BP Pulse Ox O2 Del Method O2 Flow Rate 98.5 F 94 16 124/62 H 96 Room Air 4 04/14/22 14:02 04/14/22 14:02 04/14/22 14:02 04/14/22 14:02 04/14/22 14:02 04/14/22 14:02 04/14/22 03:49 FiO2 30 04/14/22 04:43 Oxygen Flow Rate (L/min) 4 Oxygen Delivery Method Room Air Weight: 179.623 kg Body Mass Index (BMI) 53.6 Intake & Output: Intake and Output for Last 24 Hours 04/12/22 04/13/22 04/14/22 23:59 23:59 23:59 Intake Total 2634 / 2634 586 / 986 712 / 712 Output Total 2450 / 3300 2750 / 3600 1850 / 1850 Balance 184 / -666 -2164 / -2614 -1138 / -1138 Lab / Micro Data Result Diagrams: 04/12/22 05:45 04/12/22 05:45 Labs: Laboratory Results - last 24 hr 04/13/22 17:02: POC Glucose 212 H 04/13/22 22:33: POC Glucose 158 H 04/14/22 07:53: POC Glucose 142 H 04/14/22 11:14: POC Glucose 207 H Micro: Microbiology 04/10/22 15:38 Bone - Sacral Bone Gram Stain - Final 04/10/22 15:38 Bone - Sacral Bone Wound Culture - Final Strep anginosus Streptococcus group C 04/10/22 15:38 Bone - Sacral Bone Anaerobic Culture - Preliminary Checking for anaerobes, further studies to follow. 04/10/22 16:02 Tissue - Sacral Pressure Sore Gram Stain - Final 04/10/22 16:02 Tissue - Sacral Pressure Sore Wound Culture - Final Streptococcus group C Corynebacterium striatum 04/10/22 16:02 Tissue - Sacral Pressure Sore Anaerobic Culture - Preliminary Checking for anaerobes, further studies to follow. 04/07/22 16:17 Blood Culture (Wb) - Anticubital Right Blood Culture - Final No growth in 5 days. 04/10/22 16:00 Tissue - Sacral Pressure Sore Gram Stain - Final 04/10/22 16:00 Tissue - Sacral Pressure Sore Wound Culture - Final Proteus mirabilis Corynebacterium striatum Streptococcus group C 04/07/22 22:45 Urine Catheter - Garcia Urine Culture - Final Proteus mirabilis 04/09/22 10:05 Stool Stool Occult Blood (MARTHA) - Final Occult Blood Positive Physical Exam Narrative alert, oriented x3 and no apparent distress Constitutional Narrative: Patient is morbidly obese, he has generalized wasting of the lower extremities General Appearance: cooperative and well kempt Orientation / Consciousness: awake, oriented to person, oriented to place and oriented to time HEENT normocephalic, head/scalp atraumatic and moist oral mucous membranes Eyes PERRL, EOMs intact bilaterally and conjunctivae normal Neck supple, no JVD and thyroid normal General: trachea midline Resp normal respiratory effort, no retractions, no use of accessory muscles and clear to auscultation bilaterally Auscultation: Negative for rales, rhonchi or wheezes Cardio regular rate, regular rhythm, S1 normal heart sound, S2 normal heart sound, no murmurs, no rub and no gallops GI normal to inspection, nondistended, normoactive bowel sounds, soft to palpation, non-tender and non-distended GI Narrative: Patient is morbidly obese Extremity Extremity Narrative: Generalized wasting of the lower extremities are noted Neuro oriented x3 and CN's II-XII intact bilaterally Neuro Narrative: Patient has paraplegia Sensorium / Orientation: awake, alert, oriented to person, oriented to place and oriented to time Speech: speech normal Psych affect normal Assessment & Plan Assessment/Plan (1) Sacral osteomyelitis: (2) Sacral decubitus ulcer, stage IV: PLAN: Plan 1. 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 Patient states that he was not advised to have a colostomy due to his obesity, patient states he is actively trying to lose weight. We are awaiting word from his insurance carrier as to whether the patient can go to an LTAC, anticipate we will not know the answer to this until early next week. #2 acute kidney injury-resolved at this time #3 morbid obesity-complicates care, management, recovery, and prognosis #4 essential hypertension-continue present medications #5 chronic anemia-iron deficiency anemia, patient will be given iron supplementation #6 hyperlipidemia-patient is on Lipitor #7 type 2 diabetes-patient is currently on basal insulin and is receiving short acting insulin as well as sliding scale insulin per protocol #8 neurogenic bladder-patient currently has a chronic indwelling Garcia Charges/Coding Visit Charges Inpatient E&M: 42298 Subs Hosp L2
--- NOTE | 2022-04-14 17:14 | CASEMGMT ---
Social Work SW received phone call from Ashlie at [facility] who states they received precert and can accept pt tonight. Pt updated and agreeable to discharge and will notify his family of transfer. Physician updated and pt to discharge tonight. Charge nurse and bedside nurse aware. Plan: [facility] JAVAD Ochoa
--- NOTE | 2022-04-14 17:23 | PCM.TXEXTCAR ---
Diet Diet Order/Speech Therapy: 04/13/22 15:38 Diet: Cardiac: Calorie-Controlled Is pt able to select menu?: Yes How many daily calories?: 2200 calorie Routine Orders/Code Status Routine Lab Work: CBC (on 04/17/22), BMP (on 04/17/22) and - (Fingerstick blood sugars AC nightly, Humalog subcu per sliding scale: 200-250: 5 units, 251-300: 8 units, 301-350: 12 units, 3 5 1-400: 15 units) Code Status: Full Code Wound(s) SACRAL WOUND: Wound Type: Pressure Injury Dressing Change: dakins moistened gauze SACRAL AREA: Wound Type: Surgical Incision Therapies Weight Bearing: patient is paraplegic Physical Therapy: Eval and Treat Occupational Therapy: Eval and Treat Problem/Diagnosis (1) Sacral osteomyelitis: Status: Acute Code(s): M46.28 - Osteomyelitis of vertebra, sacral and sacrococcygeal region (2) Sacral decubitus ulcer, stage IV: Status: Acute Code(s): L89.154 - Pressure ulcer of sacral region, stage 4 Plan 1. 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 Patient states that he was not advised to have a colostomy due to his obesity, patient states he is actively trying to lose weight. We are awaiting word from his insurance carrier as to whether the patient can go to an LTAC, anticipate we will not know the answer to this until early next week. #2 acute kidney injury-resolved at this time #3 morbid obesity-complicates care, management, recovery, and prognosis #4 essential hypertension-continue present medications #5 chronic anemia-iron deficiency anemia, patient will be given iron supplementation #6 hyperlipidemia-patient is on Lipitor #7 type 2 diabetes-patient is currently on basal insulin and is receiving short acting insulin as well as sliding scale insulin per protocol #8 neurogenic bladder-patient currently has a chronic indwelling Garcia Allergies/Procedures Done in Hospital Allergies metformin Adverse Reaction (Unknown, Verified 04/07/22 11:06) unknown Procedures: - (Debridement of sacral decubitus ulcer with bone and tissue biopsy 04/10/2022) Type of Care/Length of Stay Estimated LOS: Convalescent Care Less Than 30 days Type of Care Needed: LTAC Rehab Potential: Good Prognosis: Good Additional Orders/Day of Discharge H&P will serve as current which was dated: 04/07/22 Day of Discharge: 04/14/22 Dietary and Speech Recommendations Dietitian Recommendations/Changes: RD will change calories to 2200kcal CCD diet with Cardiac diet. Continue Masood BID and Glucerna TID with medpass to promote wound healing. RD will discontinueNepro supplement due to no need for renal supplement at this time. Discharge Plan Admission Admit Date/Time: 04/07/22 17:40 Primary Reason for Your Visit: debridement of sacral decubitus ulcer Attending Provider: Kevan Villar Primary Care Provider: Jimmie Rand Consulting Providers: Garfield Borrego ; Lang Treadwell ; Leena Arguelles ; Reji Chou Instructions Additional Instructions / Restrictions: Follow up with the wound care center at [facility] when you are discharged from [facility] Discharge Orders/Prescriptions Prescriptions: New ampicillin-sulbactam 3 gram recon soln 3 g IV Q8H Qty: 120 0RF Rx Instructions: stop date 05/22/22 dx: sacral osteo weekly bmp, cbc, and esr. Fax to [phone] routine picc care per protocol Humulin R U-500 (Conc) Kwikpen 500 unit/mL (3 mL) Insulin Pen 60 unit subcut TIDCM Qty: 0 0RF ferrous sulfate [FeroSul] 325 mg (65 mg iron) Tablet 325 mg PO 1200,1700 Qty: 0 0RF Glucerna 1.2 Stevie 0.06-1.2 gram-kcal/mL Liquid 120 ml PO TIDCM Qty: 0 0RF nystatin [Nyamyc] 100,000 unit/gram Powder 1 applic topical TID Qty: 0 0RF Protocol: *Topical Application Instructions APPLICATION INSTRUCTIONS: groin/abdominal folds heparin (porcine) 5,000 unit/mL Solution 5,000 unit subcut Q8 Qty: 0 0RF Artificial Tears(vm-pjbb-macq) 1-0.2-0.2 % Drops 1 drp EACH EYE Q1H PRN (Reason: DRY EYES) Qty: 0 0RF Masood (with collagen) 7-7-1.5 gram Powder In Packet 1 packet PO BIDCM Qty: 0 0RF loratadine [Claritin] 10 mg tablet 10 mg PO DAILY Qty: 7 0RF Rx Instructions: times 7 days for nasal drainage Continued acetaminophen 325 mg capsule 650 mg PO Q4H PRN (Reason: pain) Rx Instructions: do not exceed 4gm in 24 hrs amlodipine 10 mg tablet 5 mg PO DAILY multivitamin Tablet 1 tab PO DAILY sennosides-docusate sodium [Senna with Docusate Sodium] 8.6-50 mg tablet 2 tab-cap PO BID gabapentin 400 mg capsule 300 mg PO 4X/DAY atorvastatin 20 mg tablet 20 mg PO QHS Dakin's Solution 0.25 % solution 1 applic topical DAILY Latuda 60 mg Tablet 60 mg PO DINNER Rx Instructions: must administer with food (at least 350 calories) (DME) compr.stocking,thigh,reg,large Misc See Dose Instructions .ROUTE .MEDSUPPLY Qty: 6 1RF Dose Instruction: As directed Rx Instructions: use daily for venous insufficiency 20-30 mmhg (DME) compress.stocking,knee,reg,lrg Misc See Rx Instructions .ROUTE .MEDSUPPLY Qty: 6 1RF Rx Instructions: Use Daily for venous insufficiency 20-30mmHg (DME) cpap mask See Rx Instructions .Route .MEDSUPPLY Qty: 1 0RF Rx Instructions: Use nightly doxazosin 1 mg tablet 1 mg PO QHS Qty: 90 0RF (DME) Garcia Catheter 16 Fr misc See Rx Instructions .Route Qty: 1 0RF Rx Instructions: change every 4 weeks Trulicity 4.5 mg/0.5 mL pen injector 4.5 mg subcut .QFR Qty: 2 5RF Discontinued (DME) male urinal Qty: 1 0RF Dose Instruction: As directed Rx Instructions: As directed (DME) wash basin Qty: 1 0RF Dose Instruction: As directed Rx Instructions: As directed (DME) pen needle, diabetic [BD Ultra-Fine Jenny Pen Needle] 32 gauge x 5/32 needle See Rx Instructions .ROUTE .MEDSUPPLY Qty: 100 6RF Rx Instructions: tid (DME) OneTouch Verio test strips Strip See Rx Instructions .ROUTE .MEDSUPPLY Qty: 100 6RF Rx Instructions: As directed with meter up to 3 times daily to monitor glucose levels potassium chloride 20 mEq tablet extended release 20 meq PO BID furosemide 40 mg tablet 40 mg PO BID lisinopril 10 mg tablet 40 mg PO DAILY Humulin R U-500 (Conc) Kwikpen 500 unit/mL (3 mL) insulin pen 110 unit subcut TIDWMEAL (DME) gauze bandage [Curad Gauze Pad] 4 X 4 bandage See Rx Instructions .ROUTE .MEDSUPPLY Qty: 2000 3RF Rx Instructions: As directed, for type 2 DM (DME) shower chair bariatric Qty: 1 0RF Dose Instruction: As directed Rx Instructions: As directed (DME) lancets [FreeStyle Lancets] 28 gauge misc See Dose Instructions .ROUTE .MEDSUPPLY Qty: 200 3RF Dose Instruction: As directed Rx Instructions: test three times per day for Type 2 DM (DME) lancets [OneTouch Delica Lancets] 33 gauge misc See Rx Instructions .ROUTE .MEDSUPPLY Qty: 100 0RF Rx Instructions: As directed to monitor glucose levels (DME) blood-glucose meter [OneTouch Verio Flex meter] [facility] See Rx Instructions .ROUTE .MEDSUPPLY Qty: 1 0RF Rx Instructions: tid (DME) Wood transfer board, 32 inches in length 10 inches wide 1/2 inch thick See Rx Instructions .Route .MEDSUPPLY Qty: 1 0RF Rx Instructions: patient 6 ft tall 414 lb (DME) lancets [OneTouch Delica Plus Lancet] 33 gauge misc See Rx Instructions .ROUTE .MEDSUPPLY Qty: 100 6RF Rx Instructions: tid (DME) pen needle, diabetic [BD Ultra-Fine Jenny Pen Needle] 32 gauge x 5/32 needle See Rx Instructions .ROUTE .MEDSUPPLY Qty: 100 6RF Rx Instructions: tid Referrals / Follow Up: Jimmie Rand MD [Primary Care Provider] - Disposition Disposition (needs filled in before D/C Order can be placed): [facility]
--- NOTE | 2022-04-14 18:10 | DS.PCM_ITS ---
Providers Date of Admission: 04/07/22 Date of Discharge: 04/14/22 Primary Care Physician: Dr. Jimmie Rand MD Consultations 04/07/22 20:00 Consult: General Surgery Routine Consulting Provider: Garfield Borrego Reason for Consult: SACRAL wound debridement EMERGENT Consult: No Notified: Yes Date Notified: 04/07/22 Time Notified: 17:00 Method of Notification: ED Physician Initiated Consult: Onc/Wound/transferrer Routine Comment: Reason for Consult:: SACRAL WOUND 04/10/22 18:34 Consult: Infectious Disease Routine Consulting Provider: Reji Chou Reason for Consult: ongoing antiobiotic treatment EMERGENT Consult: No Notified: Yes Date Notified: 04/11/22 Time Notified: 06:28 Method of Notification: Answering Service Reason For Visit: SACRAL WOUND WORSENING, ION Diagnosis Discharge Diagnosis (1) Sacral osteomyelitis: Status: Acute Code(s): M46.28 - Osteomyelitis of vertebra, sacral and sacrococcygeal region (2) Sacral decubitus ulcer, stage IV: Status: Acute Code(s): L89.154 - Pressure ulcer of sacral region, stage 4 Plan 1. 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 Patient states that he was not advised to have a colostomy due to his obesity, patient states he is actively trying to lose weight. We are awaiting word from his insurance carrier as to whether the patient can go to an LTAC, anticipate we will not know the answer to this until early next week. #2 acute kidney injury-resolved at this time #3 morbid obesity-complicates care, management, recovery, and prognosis #4 essential hypertension-continue present medications #5 chronic anemia-iron deficiency anemia, patient will be given iron supplementation #6 hyperlipidemia-patient is on Lipitor #7 type 2 diabetes-patient is currently on basal insulin and is receiving short acting insulin as well as sliding scale insulin per protocol #8 neurogenic bladder-patient currently has a chronic indwelling Garcia Medications at Discharge Home Medications compr.stocking,thigh,reg,large #6 ea 05/27/21 compress.stocking,knee,reg,lrg #6 ea 11/12/20 cpap mask #1 ea 07/14/21 atorvastatin 20 mg tablet 20 mg PO QHS cholesterol lowering 08/29/21 acetaminophen 325 mg capsule 650 mg PO Q4H PRN pain 02/28/22 amlodipine 10 mg tablet 5 mg PO DAILY heart 02/28/22 gabapentin 400 mg capsule 300 mg PO 4X/DAY nerve pain 02/28/22 multivitamin 1 tab PO DAILY supplement 02/28/22 sennosides 8.6 mg-docusate sodium 50 mg tablet (Senna with Docusate Sodium) 2 tab-cap PO BID stool softener 02/28/22 doxazosin 1 mg tablet 1 mg PO QHS BPH #90 tabs 03/22/22 catheter 16 Fr (Garcia Catheter) #1 ea 04/03/22 sodium hypochlorite 0.25 % solution (Dakin's Solution) 1 applic topical DAILY wound 04/07/22 ampicillin-sulbactam 3 gram intravenous solution 3 g IV Q8H #120 ea 04/12/22 dulaglutide 4.5 mg/0.5 mL subcutaneous pen injector (Trulicity) 4.5 mg (0.5 mL) subcut .QFR blood sugar #2 mL 04/12/22 lurasidone 60 mg tablet (Latuda) 60 mg PO DINNER depression 04/12/22 arginine 7 gram-glutam 7 gram-CaHMB 1.5 zwqr-qfyrz-sq-min oral pwd pkt (Masood (with collagen)) 1 packet PO BIDCM #0 ea 04/14/22 ferrous sulfate 325 mg (65 mg iron) tablet (FeroSul) 325 mg PO 1200,1700 #0 tabs 04/14/22 heparin (porcine) 5,000 unit/mL injection solution 5,000 unit subcut Q8 #0 mL 04/14/22 insulin regular hum U-500 conc 500 unit/mL(3 mL) subcut pen (Humulin R U-500 (Conc) Insulin Kwikpen) 60 unit (0.12 mL) subcut TIDCM #0 mL 04/14/22 loratadine 10 mg tablet (Claritin) 10 mg PO DAILY #7 tabs 04/14/22 nutrition tx glu intol,lac-free,soy-fiber 0.06 gram-1.2 kcal/mL liquid (Glucerna 1.2 Stevie) 120 ml PO TIDCM #0 mL 04/14/22 nystatin 100,000 unit/gram topical powder (Nyamyc) 1 applic topical TID #0 grams 04/14/22 peg [id number] 1 %-0.2 %-0.2 % eye drops (Artificial Tears ([id number])) 1 drp EACH EYE Q1H PRN DRY EYES #0 mL 04/14/22 Hospital Course Operations - (Debridement of sacral decubitus ulcer with bone and tissue biopsy) Procedures None Summary of Care Provided Minutes Spent on Discharge: 33 Hospital Course: This 51-year-old white male was seen in the emergency room for evaluation of a chronic sacral pressure injury that had been cared for at the wound care center at [facility]. It was felt that the area needed to be debrided due to the appearance of the wound. Labs obtained in the emergency room showed an elevated white blood cell count of 12.2, sodium was slightly low at 134, creatinine was elevated at 2.14, and glucose was 171. Patient was admitted to [place] [address] for an infected stage IV sacral decubitus ulcer, he was seen in consultation by general surgery who took the patient for surgical debridement of the area. Patient did well postop and had no complications, he was seen by in fectious diseases in consultation for antibiotic direction. Patient was felt to need skilled care for healing of the wound area and an LTAC agreed to take the patient and this was approved by his insurance carrier. On 04/14/2022, patient was seen and examined: On examination he appeared in good health and spirits, patient is morbidly obese. Vital signs as documented. Skin warm and dry and without overt rashes. Neck without JVD, neck was supple, trachea midline, thyroid was normal. Lungs clear bilaterally, normal air movement was noted. Heart exam notable for regular rhythm, normal sounds and absence of murmurs, rubs or gallops. Abdomen unremarkable and without evidence of organomegaly, masses, or abdominal aortic enlargement. Bowel sounds are present, abdomen is not distended. Extremities nonedematous, no cyanosis was noted, no clubbing was noted. Neuro: Cranial nerves II through XII are grossly intact, patient is paraplegic. Psych: Patient is alert and oriented x3, he does not appear anxious or depressed, he does not appear agitated. On 04/14/2022, patient was transferred to [facility] in [place] for inpatient services. Weight / BMI Weight Weight: 179.623 kg Body Mass Index (BMI) 53.6 ABG / Lab / Microbiology Data Result Diagrams: 04/12/22 05:45 04/12/22 05:45 Laboratory: Laboratory Results - last 24 hr 04/13/22 22:33: POC Glucose 158 H 04/14/22 07:53: POC Glucose 142 H 04/14/22 11:14: POC Glucose 207 H Microbiology: Microbiology 04/10/22 15:38 Bone - Sacral Bone Gram Stain - Final 04/10/22 15:38 Bone - Sacral Bone Wound Culture - Final Strep anginosus Streptococcus group C 04/10/22 15:38 Bone - Sacral Bone Anaerobic Culture - Preliminary Checking for anaerobes, further studies to follow. 04/10/22 16:02 Tissue - Sacral Pressure Sore Gram Stain - Final 04/10/22 16:02 Tissue - Sacral Pressure Sore Wound Culture - Final Streptococcus group C Corynebacterium striatum 04/10/22 16:02 Tissue - Sacral Pressure Sore Anaerobic Culture - Preliminary Checking for anaerobes, further studies to follow. 04/07/22 16:17 Blood Culture (Wb) - Anticubital Right Blood Culture - Final No growth in 5 days. 04/10/22 16:00 Tissue - Sacral Pressure Sore Gram Stain - Final 04/10/22 16:00 Tissue - Sacral Pressure Sore Wound Culture - Final Proteus mirabilis Corynebacterium striatum Streptococcus group C 04/07/22 22:45 Urine Catheter - Garcia Urine Culture - Final Proteus mirabilis 04/09/22 10:05 Stool Stool Occult Blood (MARTHA) - Final Occult Blood Positive Meaningful Use Info Meaningful Use Diagnoses (Choose all that apply): None applicable Discharge Plan Admission Admit Date/Time: 04/07/22 17:40 Primary Reason for Your Visit: debridement of sacral decubitus ulcer Attending Provider: Kevan Villar Primary Care Provider: Jimmie Rand Consulting Providers: Garfield Borrego ; Lang Treadwell ; Leena Arguelles ; Reji Chou Instructions Additional Instructions / Restrictions: Follow up with the wound care center at [facility] when you are discharged from [facility] Orders/Prescriptions Prescriptions: New ampicillin-sulbactam 3 gram recon soln 3 g IV Q8H Qty: 120 0RF Rx Instructions: stop date 05/22/22 dx: sacral osteo weekly bmp, cbc, and esr. Fax to [phone] routine picc care per protocol Humulin R U-500 (Conc) Kwikpen 500 unit/mL (3 mL) Insulin Pen 60 unit subcut TIDCM Qty: 0 0RF ferrous sulfate [FeroSul] 325 mg (65 mg iron) Tablet 325 mg PO 1200,1700 Qty: 0 0RF Glucerna 1.2 Stevie 0.06-1.2 gram-kcal/mL Liquid 120 ml PO TIDCM Qty: 0 0RF nystatin [Nyamyc] 100,000 unit/gram Powder 1 applic topical TID Qty: 0 0RF Protocol: *Topical Application Instructions APPLICATION INSTRUCTIONS: groin/abdominal folds heparin (porcine) 5,000 unit/mL Solution 5,000 unit subcut Q8 Qty: 0 0RF Artificial Tears(ad-gxeo-omec) 1-0.2-0.2 % Drops 1 drp EACH EYE Q1H PRN (Reason: DRY EYES) Qty: 0 0RF Masood (with collagen) 7-7-1.5 gram Powder In Packet 1 packet PO BIDCM Qty: 0 0RF loratadine [Claritin] 10 mg tablet 10 mg PO DAILY Qty: 7 0RF Rx Instructions: times 7 days for nasal drainage Continued acetaminophen 325 mg capsule 650 mg PO Q4H PRN (Reason: pain) Rx Instructions: do not exceed 4gm in 24 hrs amlodipine 10 mg tablet 5 mg PO DAILY multivitamin Tablet 1 tab PO DAILY sennosides-docusate sodium [Senna with Docusate Sodium] 8.6-50 mg tablet 2 tab-cap PO BID gabapentin 400 mg capsule 300 mg PO 4X/DAY atorvastatin 20 mg tablet 20 mg PO QHS Dakin's Solution 0.25 % solution 1 applic topical DAILY Latuda 60 mg Tablet 60 mg PO DINNER Rx Instructions: must administer with food (at least 350 calories) (DME) compr.stocking,thigh,reg,large Misc See Dose Instructions .ROUTE .MEDSUPPLY Qty: 6 1RF Dose Instruction: As directed Rx Instructions: use daily for venous insufficiency 20-30 mmhg (DME) compress.stocking,knee,reg,lrg Misc See Rx Instructions .ROUTE .MEDSUPPLY Qty: 6 1RF Rx Instructions: Use Daily for venous insufficiency 20-30mmHg (DME) cpap mask See Rx Instructions .Route .MEDSUPPLY Qty: 1 0RF Rx Instructions: Use nightly doxazosin 1 mg tablet 1 mg PO QHS Qty: 90 0RF (DME) Garcia Catheter 16 Fr misc See Rx Instructions .Route Qty: 1 0RF Rx Instructions: change every 4 weeks Trulicity 4.5 mg/0.5 mL pen injector 4.5 mg subcut .QFR Qty: 2 5RF Discontinued (DME) male urinal Qty: 1 0RF Dose Instruction: As directed Rx Instructions: As directed (DME) wash basin Qty: 1 0RF Dose Instruction: As directed Rx Instructions: As directed (DME) pen needle, diabetic [BD Ultra-Fine Jenny Pen Needle] 32 gauge x 5/32 needle See Rx Instructions .ROUTE .MEDSUPPLY Qty: 100 6RF Rx Instructions: tid (DME) OneTouch Verio test strips Strip See Rx Instructions .ROUTE .MEDSUPPLY Qty: 100 6RF Rx Instructions: As directed with meter up to 3 times daily to monitor glucose levels potassium chloride 20 mEq tablet extended release 20 meq PO BID furosemide 40 mg tablet 40 mg PO BID lisinopril 10 mg tablet 40 mg PO DAILY Humulin R U-500 (Conc) Kwikpen 500 unit/mL (3 mL) insulin pen 110 unit subcut TIDWMEAL (DME) gauze bandage [Curad Gauze Pad] 4 X 4 bandage See Rx Instructions .ROUTE .MEDSUPPLY Qty: 2000 3RF Rx Instructions: As directed, for type 2 DM (DME) shower chair bariatric Qty: 1 0RF Dose Instruction: As directed Rx Instructions: As directed (DME) lancets [FreeStyle Lancets] 28 gauge misc See Dose Instructions .ROUTE .MEDSUPPLY Qty: 200 3RF Dose Instruction: As directed Rx Instructions: test three times per day for Type 2 DM (DME) lancets [OneTouch Delica Lancets] 33 gauge misc See Rx Instructions .ROUTE .MEDSUPPLY Qty: 100 0RF Rx Instructions: As directed to monitor glucose levels (DME) blood-glucose meter [OneTouch Verio Flex meter] [facility] See Rx Instructions .ROUTE .MEDSUPPLY Qty: 1 0RF Rx Instructions: tid (DME) Wood transfer board, 32 inches in length 10 inches wide 1/2 inch thick See Rx Instructions .Route .MEDSUPPLY Qty: 1 0RF Rx Instructions: patient 6 ft tall 414 lb (DME) lancets [OneTouch Delica Plus Lancet] 33 gauge [facility] [place] See Rx Instructions .ROUTE .MEDSUPPLY Qty: 100 6RF Rx Instructions: tid (DME) pen needle, diabetic [BD Ultra-Fine Jenny Pen Needle] 32 gauge x 5/32 needle See Rx Instructions .ROUTE .MEDSUPPLY Qty: 100 6RF Rx Instructions: tid Referrals / Follow Up: Jimmie Rand MD [Primary Care Provider] - Disposition Disposition (needs filled in before D/C Order can be placed): Acute Care Hospital Charges/Coding Visit Charges Inpatient E&M: 54633 Disch Hosp
[2022-04-14] MEDS: LURASIDONE HCL 60 MG TABLET PO (19:38)
[2022-04-14 20:41] LABS: Bedside Glucose 209 mg/dL (74-106)
== END 2022-04-14 20:50 | disposition short-term general hospital (02) | DRG 951 ==
LOC: ED 16:54 → MS3 17:44
PROVIDERS: Anesthesiology; Internal Medicine; Physician Assistant; Surgery; Admitting Provider Internal Medicine; Emergency Provider Student in an Organized Health Care Education/Training Program; PCP Internal Medicine; Visit Provider Internal Medicine
PROC: 0QB10ZZ Excision of Sacrum, Open Approach (ICD-10-PCS; principal; 2022-04-10 14:15)
DX: I96 Gangrene, not elsewhere classified (principal); L89.154 Pressure ulcer of sacral region, stage 4; G82.20 Paraplegia, unspecified; J96.11 Chronic respiratory failure with hypoxia; M46.28 Osteomyelitis of vertebra, sacral and sacrococcygeal region; E87.1 Hypo-osmolality and hyponatremia; N17.9 Acute kidney failure, unspecified; E11.42 Type 2 diabetes mellitus with diabetic polyneuropathy; E66.01 Morbid (severe) obesity due to excess calories; Z79.4 Long term (current) use of insulin; Z68.43 Body mass index [BMI] 50.0-59.9, adult; E11.69 Type 2 diabetes mellitus with other specified complication; M19.90 Unspecified osteoarthritis, unspecified site; I10 Essential (primary) hypertension; E83.52 Hypercalcemia; E78.5 Hyperlipidemia, unspecified; G47.33 Obstructive sleep apnea (adult) (pediatric); D50.9 Iron deficiency anemia, unspecified; R15.9 Full incontinence of feces; F10.10 Alcohol abuse, uncomplicated; F41.9 Anxiety disorder, unspecified; F32.A Depression, unspecified; N31.8 Other neuromuscular dysfunction of bladder; B95.4 Other streptococcus as the cause of diseases classified elsewhere; B96.4 Proteus (mirabilis) (morganii) as the cause of diseases classified elsewhere; Y90.9 Presence of alcohol in blood, level not specified; R39.81 Functional urinary incontinence; Z99.81 Dependence on supplemental oxygen; Z79.01 Long term (current) use of anticoagulants; Z79.85 Long-term (current) use of injectable non-insulin antidiabetic drugs; Z79.899 Other long term (current) drug therapy; Z87.891 Personal history of nicotine dependence
CPT/HCPCS: 36415; 36569; 72193; 80048; 80074; 80076; 81001; 82274; 82330; 82436; 82607; 82652; 82728; 82746; 82962; 83036; 83540; 83550; 83735; 83930; 83935; 83970; 84100; 84133; 84166; 84300; 85025; 85045; 85610; 85730; 86335; 86703; 86850; 86900; 86901; 86920; 86922; 87040; 87070; 87075; 87077; 87086; 87088; 87102; 87176; 87186; 87205; 87206; 88305; 88307; 88311; 93005; 94003; 94660; 97110; 97162; 97166; 97530; 97802; 97803; 99285; J7030; J7040; J7050; J7120; P9016; Q9967; A4216; J0295

== ENCOUNTER 2022-06-04 23:16 | Inpatient (IN) | payer MEDICAID, SELFPAY ==
[2022-06-04 23:18] VITALS: BP 80/43; PULSE 101; RESP 20; TEMP 36.9; O2SAT 97; BMI 7588.5
[2022-06-04 23:37] VITALS: BP 99/54; PULSE 99; RESP 18; O2SAT 97
--- NOTE | 2022-06-04 23:49 | EX.ED.DYSGE1 ---
HPI History of Present Illness Chief Complaint: Nausea/Vomiting/Diarrhea Narrative Narrative: 52-year-old male presenting with abdominal pain, nausea and excessive diarrhea. Patient states earlier this week he had a fever of 101. States the fever has resolved. He had some nausea but states he has had a lot of black stools, but he states he does take a lot of iron supplements. He does complain of some lower abdominal pain. He states that he was previous on antibiotics of a couple of weeks ago. He was on Unasyn for history of decubitus ulcer/sacral osteomyelitis. He states he was at an [facility] [place]. He was then sent to rehab. He did return home. He states his 85-year-old mother has been caring for him but does not feel she can care for him anymore. She has been changing his dressing over his sacral wound. He states that he believes this is improving. Patient does not have a cough or shortness of breath. He states been able to eat and drink plenty of water. He notes that there is still urine in his Garcia catheter bag. [facility] Medical History Acute respiratory failure, unspecified whether with hypoxia or hypercapnia Alcohol abuse Anemia Anemia Anxiety and depression Anxiety disorder Bacteremia due to Enterococcus Avelar's palsy Blister (nonthermal), right foot, initial encounter Chronic ulcer of right foot with fat layer exposed CPAP (continuous positive airway pressure) dependence Decubitus ulcer of sacral region, stage 4 Decubitus ulcer, buttock Depression Diabetes DVT (deep venous thrombosis) Edema of both lower extremities Essential (primary) hypertension Former smoker Headache Hemoglobin A1c 8.0% or greater History of foot ulcer History of stress test history of tooth removal Hyperlipidemia Incontinence 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 Insomnia Left shoulder pain skilled nursing (current) use of anticoagulants skilled nursing (current) 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 Morbid (severe) obesity due to excess calories Neuromuscular dysfunction of bladder, unspecified Neuropathic pain Obesities, morbid Obstructive sleep apnea On home oxygen therapy Osteoporosis Other seasonal allergic rhinitis Paraplegia Pressure sore of left ischium, unstageable Pressure ulcer Pressure ulcer of left buttock, unstageable Pressure ulcer of right buttock, unstageable Pressure ulcer of sacral region, unstageable Primary osteoarthritis, left shoulder Sacral ulcer Sacral wound Self-catheterizes urinary bladder Sepsis Skin necrosis Skin ulcer of left hip Skin ulcer of right hip Sleep apnea Stage II pressure ulcer Stage II pressure ulcer of buttock Type 2 diabetes mellitus with diabetic polyneuropathy Wound infection Home Medications compr.stocking,thigh,reg,large #6 ea 11/11/20 [Rx Last Taken Unknown] compress.stocking,knee,reg,lrg #6 ea 11/12/20 [Rx Last Taken Unknown] cpap mask #1 ea 07/14/21 [Rx Last Taken Unknown] atorvastatin 20 mg tablet 20 mg PO QHS cholesterol lowering 08/29/21 [History Last Taken 04/06/22] acetaminophen 325 mg capsule 650 mg PO Q4H PRN pain 02/28/22 [History Last Taken 04/07/22] amlodipine 10 mg tablet 10 mg PO DAILY heart 02/28/22 [History Last Taken 04/06/22] gabapentin 400 mg capsule 300 mg PO 4X/DAY nerve pain 02/28/22 [History Last Taken 04/07/22] multivitamin 1 tab PO DAILY supplement 02/28/22 [History Last Taken 04/07/22] sennosides 8.6 mg-docusate sodium 50 mg tablet (Senna with Docusate Sodium) 2 tab-cap PO BID stool softener 02/28/22 [History Last Taken 04/07/22] catheter 16 Fr (Garcia Catheter) #1 ea 04/03/22 [Rx Last Taken Unknown] sodium hypochlorite 0.25 % solution (Dakin's Solution) 1 applic topical DAILY wound 04/07/22 [History Last Taken 04/07/22] lurasidone 60 mg tablet (Latuda) 60 mg PO DINNER depression 04/12/22 [History Last Taken Unknown] arginine 7 gram-glutam 7 gram-CaHMB 1.5 qqds-nwcer-ak-min oral pwd pkt (Masood (with collagen)) 1 packet PO BIDCM #0 ea 04/14/22 [Rx Last Taken Unknown] insulin regular hum U-500 conc 500 unit/mL(3 mL) subcut pen (Humulin R U-500 (Conc) Insulin Kwikpen) 60 unit (0.12 mL) subcut TIDCM #0 mL 04/14/22 [Rx Last Taken Unknown] loratadine 10 mg tablet (Claritin) 10 mg PO DAILY #7 tabs 04/14/22 [Rx Last Taken Unknown] peg [id number] 1 %-0.2 %-0.2 % eye drops (Artificial Tears ([id number])) 1 drp EACH EYE Q1H PRN DRY EYES #0 mL 04/14/22 [Rx Last Taken Unknown] dulaglutide 4.5 mg/0.5 mL subcutaneous pen injector (Trulicity) 4.5 mg (0.5 mL) subcut .QFR blood sugar #6 mL 04/17/22 [Rx Last Taken Unknown] doxazosin 1 mg tablet See Rx Instructions .Route .COMPLEX #30 tabs 05/17/22 [Rx Last Taken Unknown] lisinopril 10 mg tablet 10 mg PO DAILY 06/04/22 [History Last Taken Unknown] Allergy/AdvReac Type Severity Reaction Status Date / Time metformin AdvReac Unknown unknown Verified 04/07/22 11:06 Family History Father Heart disease Myocardial infarction, Onset Age: 64 Hyperlipemia Mother Heart disease Hypertension Hyperlipemia Uncle Heart disease Grandfather Diabetes Grandmother Diabetes Surgical History History of back surgery Social History Smoking Status: Former smoker alcohol intake: former substance use type: does not use what type of physical activity do you participate in: none ROS ROS ED Constitutional Constitutional ED: Reports fever(s) Eyes Eyes: Denies change in vision or diplopia ENT ENT ED: Denies rhinorrhea or sore throat Cardiovascular Cardiovascular: Denies chest pain or palpitations Respiratory/Chest Respiratory/Chest: Denies cough or dyspnea Gastrointestinal Gastrointestinal: Reports abdominal pain, diarrhea, melena and nausea Genitourinary Genitourinary ED: Denies dysuria or hematuria Musculoskeletal Musculoskeletal: Denies arthralgias Integumentary Denies abscess or Abrasions Neurologic Neurologic: Denies headache(s) Psychiatric Psychiatric: Denies anxiety or depression EXAM Physical Exam Const Vital Signs: 06/04/22 23:18 06/04/22 23:37 06/05/22 01:15 Temperature 98.5 F Temperature Source Oral Pulse Rate 101 H 99 89 Respiratory Rate 20 H 18 16 Blood Pressure 80/43 L 99/54 L 98/46 L Blood Pressure Mean 55 69 63 Pulse Ox 97 97 99 Oxygen Delivery Method Room Air Room Air Room Air 06/05/22 02:00 06/05/22 03:00 06/05/22 04:00 Temperature 98.4 F 98.4 F 97.9 F Temperature Source Temporal Temporal Temporal Pulse Rate 97 89 93 Respiratory Rate 16 11 L 18 Blood Pressure 123/49 H 98/51 L 99/52 L Blood Pressure Mean 73 66 67 Pulse Ox 96 96 96 Oxygen Delivery Method Room Air Room Air Room Air 06/05/22 05:00 06/05/22 05:00 Temperature 98.2 F 98.1 F Temperature Source Temporal Temporal Pulse Rate 94 94 Respiratory Rate 21 H 21 H Blood Pressure 93/44 L 93/44 L Blood Pressure Mean 60 60 Pulse Ox 99 99 Oxygen Delivery Method Room Air Room Air Positive obese and unkempt General Appearance ED: unkempt; Negative for pallor Nutritional Appearance: obese HEENT Reports moist mucous membranes Eyes PERRL and EOMs intact bilaterally Neck no lymphadenopathy Resp normal respiratory effort and clear to auscultation bilaterally Auscultation: Negative for rales, rhonchi or wheezes Cardio regular rate Rate: tachycardic GI Palpation: tender LLQ and RLQ Neuro oriented x3 and CN's II-XII intact bilaterally Sensorium / Orientation: alert Psych mental status grossly normal Appearance: unkempt Skin Skin Narrative: Dressing over sacral decubitus ulcer is clean, dry, intact. General Skin Exam: Negative for jaundice or pallor MDM MDM MDM Narrative Medical decision making narrative: Patient presenting with diarrhea and abdominal cramping he states initially he started with a fever earlier this week but this is resolved. He had nausea but has been able to eat and drink throughout the week. He reports that his Garcia catheter has been draining. His fever has resolved. He reports that his 85-year-old mother cannot care for him anymore because he has excessive diarrhea. I do have concern for possible C. difficile given the patient's diarrhea and recent antibiotics use. I did send for stool studies and C. difficile. Patient was treated with fentanyl and Zofran because his blood pressure was low when he arrived. He is actively having diarrhea at this time. Patient was initially given a liter of IV fluids as well. CBC shows a white blood cell count of 12.4. Hemoglobin is 10.0 and higher than his baseline previously. Platelets 382. Creatinine 1.43 which is above his baseline. In March his creatinine was 1.7. His potassium is low at 2.6 so I did send for a magnesium level which is also low at 1.3. Patient was given 4 g of IV magnesium and an additional liter of normal saline. LFTs are unremarkable. Urinalysis shows 500, greater than 100 white blood cells and 3+ bacteria however this is from his Garcia catheter. I will send this for culture. CT of the abdomen pelvis shows infectious or inflammatory colitis. It also identifies an abnormality at L1 which could be either infectious or metastatic. This is within his hardware previously placed in 2013. The patient is a paraplegic and cannot feel any pain down here. I did discuss this with [facility] which is where he said he had his surgery and the doctor who did his surgery no longer works there. Apparently was at [facility] surgeon. I did attempt to transfer the patient to [facility] however they are not excepting any patients unless they are trauma, STEMI, stroke. I spoke with [facility] where the patient had also been seen in the past and they did not want him to come there because they did not perform the surgery. In the meantime the patient was being hydrated and his current blood pressure is 119/57 which is very much improved. I spoke with Dr. Barreto and we did review the images together. He did not feel that the CT looked much changed from his previous CT of that area. He did recommend however that I obtain an MRI to rule this out because if it was infected he would recommend transfer. MRI was ordered of the lumbar and thoracic spine with and without contrast. C. difficile is pending. patient will be signed out to incoming ED physician for monitoring until placement can be arranged. Impression: 1. Leukocytosis 2. Hypokalemia 3. Hypomagnesemia 4. Dehydration 5. Abdominal pain 6. Abnormal CT Lab Data Attestation: I reviewed the patient's lab results. Labs: Laboratory Results - last 24 hr 06/04/22 06/04/22 06/04/22 00:05 00:05 01:16 WBC 12.4 H RBC 3.74 L Hgb 10.0 L Hct 32.4 L MCV 86.6 MCH 26.7 L MCHC 30.9 L RDW Std Deviation 54.4 H RDW Coeff of Fei 17.2 H Plt Count 382 MPV 9.2 Immature Gran % (Auto) 1.000 H Neut % (Auto) 67.2 Lymph % (Auto) 16.2 L [place] % (Auto) 10.6 H Eos % (Auto) 4.6 Baso % (Auto) 0.4 Absolute Neuts (auto) 8.3 H Absolute Lymphs (auto) 2.01 Nucleated RBC % 0 Sodium 137 Potassium 2.6 L* Chloride 106 Carbon Dioxide 21.0 Anion Gap 10 BUN 28 H Creatinine 1.43 H Estim Creat Clear Calc 147.23 Est GFR (MDRD) Af Amer 66 Est GFR (MDRD) Non-Af 55 L BUN/Creatinine Ratio 19.6 Glucose 133 H Calcium 8.9 Magnesium Total Bilirubin 0.40 AST 8 L ALT 19 Alkaline Phosphatase 75 Total Protein 6.9 Albumin 2.7 L Globulin 4.2 Albumin/Globulin Ratio 0.6 L Lipase 105 Urine Color Yellow Urine Clarity Clear Urine pH 5.0 Ur Specific [place] 1.010 Urine Protein 15 H Urine Glucose (UA) Normal Urine Ketones Negative Urine Occult Blood 10 H Urine Nitrite Negative Urine Bilirubin Negative Urine Urobilinogen Normal Ur Leukocyte Esterase 500 H Urine RBC 0-5 SEEN Urine WBC >100 SEEN Ur Squamous Epith Cells 0-5 SEEN Ur Renal Epithelial Cell 0-5 SEEN Urine Bacteria 3+ Hyaline Casts 0-5 SEEN Urine Mucus 0 SEEN 06/05/22 00:05 WBC RBC Hgb Hct MCV MCH MCHC RDW Std Deviation RDW Coeff of Fei Plt Count MPV Immature Gran % (Auto) Neut % (Auto) Lymph % (Auto) [place] % (Auto) Eos % (Auto) Baso % (Auto) Absolute Neuts (auto) Absolute Lymphs (auto) Nucleated RBC % Sodium Potassium Chloride Carbon Dioxide Anion Gap BUN Creatinine Estim Creat Clear Calc Est GFR (MDRD) Af Amer Est GFR (MDRD) Non-Af BUN/Creatinine Ratio Glucose Calcium Magnesium 1.3 L Total Bilirubin AST ALT Alkaline Phosphatase Total Protein Albumin Globulin Albumin/Globulin Ratio Lipase Urine Color Urine Clarity Urine pH Ur Specific [place] Urine Protein Urine Glucose (UA) Urine Ketones Urine Occult Blood Urine Nitrite Urine Bilirubin Urine Urobilinogen Ur Leukocyte Esterase Urine RBC Urine WBC Ur Squamous Epith Cells Ur Renal Epithelial Cell Urine Bacteria Hyaline Casts Urine Mucus Radiography Diagnostic Testing: Clinical Impression(s) from Imaging Studies Abdomen/Pelvis CT 06/05/22 23:47 IMPRESSION: Findings suggest sequela of acute infectious or inflammatory colitis. There may also be some infectious or inflammatory enteritis. Electronically Signed: Caro Yo MD at 1:31 EST , Discharge Plan Triage Chief Complaint: Nausea/Vomiting/Diarrhea ED Provider: Jose Alfredo Jacobs Dx/Rx/DC Orders Prescriptions: No Action acetaminophen 325 mg capsule 650 mg PO Q4H PRN (Reason: pain) Rx Instructions: do not exceed 4gm in 24 hrs amlodipine 10 mg tablet 10 mg PO DAILY multivitamin Tablet 1 tab PO DAILY sennosides-docusate sodium [Senna with Docusate Sodium] 8.6-50 mg tablet 2 tab-cap PO BID gabapentin 400 mg capsule 300 mg PO 4X/DAY atorvastatin 20 mg tablet 20 mg PO QHS Dakin's Solution 0.25 % solution 1 applic topical DAILY Latuda 60 mg Tablet 60 mg PO DINNER Rx Instructions: must administer with food (at least 350 calories) Humulin R U-500 (Conc) Kwikpen 500 unit/mL (3 mL) Insulin Pen 60 unit subcut TIDCM Qty: 0 0RF Artificial Tears(rt-izij-qkum) 1-0.2-0.2 % Drops 1 drp EACH EYE Q1H PRN (Reason: DRY EYES) Qty: 0 0RF Masood (with collagen) 7-7-1.5 gram Powder In Packet 1 packet PO BIDCM Qty: 0 0RF loratadine [Claritin] 10 mg tablet 10 mg PO DAILY Qty: 7 0RF Rx Instructions: times 7 days for nasal drainage lisinopril 10 mg Tablet 10 mg PO DAILY (DME) compr.stocking,thigh,reg,large Misc See Dose Instructions .ROUTE .MEDSUPPLY Qty: 6 1RF Dose Instruction: As directed Rx Instructions: use daily for venous insufficiency 20-30 mmhg (DME) compress.stocking,knee,reg,lrg Misc See Rx Instructions .ROUTE .MEDSUPPLY Qty: 6 1RF Rx Instructions: Use Daily for venous insufficiency 20-30mmHg (DME) cpap mask See Rx Instructions .Route .MEDSUPPLY Qty: 1 0RF Rx Instructions: Use nightly (DME) Garcia Catheter 16 Fr misc See Rx Instructions .Route Qty: 1 0RF Rx Instructions: change every 4 weeks Trulicity 4.5 mg/0.5 mL pen injector 4.5 mg subcut .QFR Qty: 6 1RF doxazosin 1 mg tablet See Rx Instructions .ROUTE .COMPLEX Qty: 30 10RF Dose Instruction: TAKE 1 TABLET BY MOUTH AT BEDTIME FOR BENIGN PROSTATIC HYPERPLASIA Rx Instructions: TAKE 1 TABLET BY MOUTH AT BEDTIME FOR BENIGN PROSTATIC HYPERPLASIA Primary Care Provider: Jimmie Rand Referrals: Jimmie Rand MD [Primary Care Provider] -
[2022-06-05] VITALS (11 sets, daily range): BP systolic 93–128; BP diastolic 42–90; PULSE 84–97; RESP 11–21; TEMP 36.2–37; O2SAT 93–99; BMI 51.8
[2022-06-05] MEDS: 0.9% Normal Saline 1,000 ML 1000 ML IV (00:08)
[2022-06-05] MEDS: Ondansetron 4 MG/2 ML Vial IV (00:08)
[2022-06-05] MEDS: fentaNYL 100 MCG/2 ML Ampul 25 MCG IV (00:09)
[2022-06-05 00:21] LABS: Absolute Lymphocyte Count 2.01 X10^3/uL (0.83-4.51); Absolute Neutrophil Count 8.3 X10^3/uL (2.0-7.7); Basophil# 0.05 X10^3/uL; Basophil% 0.4 % (0-1); Eosinophil# 0.57 X10^3/uL; Eosinophils% 4.6 % (0-5); Hematocrit 32.4 % (40-54); Lymphocyte # 2.01 X10^3/ul (0.83-4.51); Lymphocyte % 16.2 % (19-41); Mean Corp Hgb Conc 30.9 g/dL (32-36); Mean Corpuscular Hgb 26.7 pg (27.0-32.0); Mean Corpuscular Volume 86.6 fL (80-94); Mean Platelet Vol. 9.2 fl (6.2-12.0); Monocyte# 1.31 X10^3/uL; Monocyte% 10.6 % (0-10); NRBC Flagged by Analyzer 0 % (0-5); Neutrophil # 8.33 X10^3/uL (2.7-7.7); Neutrophil % 67.2 % (47-70); Platelet Count 382 K/mm3 (150-450); RBC Distribution Width CV 17.2 % (11.6-14.6); RBC Distribution Width SD 54.4 fl (35.1-43.9); Red Blood Count 3.74 M/mm3 (4.6-6.2); White Blood Count 12.4 K/mm3 (4.4-11.0)
[2022-06-05 00:52] LABS: ALB/GLOB Ratio 0.6 RATIO (0.9-2.4); AST(SGOT) 8 U/L (15-37); Alanine Aminotransfer ALT/SGPT 19 U/L (16-61); Albumin, Serum 2.7 g/dL (3.2-5.0); Alkaline Phosphatase 75 U/L (45-117); Anion Gap 10 (5-15); BUN 28 mg/dL (7-18); BUN/Creat Ratio 19.6 RATIO (10-20); Calcium,Total 8.9 mg/dL (8.5-10.1); Chloride 106 mmol/L (98-107); Creatinine, Serum 1.43 mg/dL (0.70-1.30); EST Glomerular Filtration Rate 55 mL/min (>60); Est Glom Filt Rate - Afr Amer 66 mL/min (>60); Estimated Creatinine Clearance 147.23 ml/min; Globulin 4.2 g/dL (2.2-4.2); Glucose 133 mg/dL (74-106); Lipase 105 U/L (73-393); Potassium 2.6 mmol/L (3.5-5.1); Protein, Total 6.9 g/dL (6.4-8.2); Sodium Level 137 mmol/L (136-145)
[2022-06-05 01:24] LABS: Mucous, Urine 0 SEEN /hpf (<or=2+)
[2022-06-05 01:33] LABS: Color, Urine Yellow (Yellow); Glucose, Dipstick Normal (Normal); Ketone-Dipstick Negative (Negative); Leukocyte Esterase-Dipstick 500 /ul (Negative); Nitrite-Dipstick Negative (Negative); Occult Blood-Urine 10 /ul (Negative); Protein-Dipstick 15 mg/dl (Negative); Urine Bilirubin Dipstick Negative (Negative); Urine Clarity Clear (Clear); Urine Urobilinogen Normal (Normal)
[2022-06-05 01:37] LABS: Magnesium 1.3 mg/dL (1.6-2.6)
[2022-06-05 01:39] LABS: Bacteria 3+ /hpf (None Seen); Red Blood Cells-Urine 0-5 SEEN /hpf (0-5); Squamous Epithelial Cells - UA 0-5 SEEN /hpf (0-5); White Blood Cells >100 SEEN /hpf (0-5)
[2022-06-05 01:40] LABS: Hyaline Cast 0-5 SEEN /lpf (0-5); Renal Epithelial Cells 0-5 SEEN /hpf (0-5)
[2022-06-05] MEDS: Magnesium Sulfate 4gm/100mL 4 GM/100 ML IV.SOLN. IV (02:18)
--- NOTE | 2022-06-05 02:46 | HP.PCM.HOS_ITS ---
HPI - General HPI Narrative SERENITY MACHADO, is a 52 M who presents [facility] Medical History Acute respiratory failure, unspecified whether with hypoxia or hypercapnia Alcohol abuse Anemia Anemia Anxiety and depression Anxiety disorder Bacteremia due to Enterococcus Avelar's palsy Blister (nonthermal), right foot, initial encounter Chronic ulcer of right foot with fat layer exposed CPAP (continuous positive airway pressure) dependence Decubitus ulcer of sacral region, stage 4 Decubitus ulcer, buttock Depression Diabetes DVT (deep venous thrombosis) Edema of both lower extremities Essential (primary) hypertension Former smoker Headache Hemoglobin A1c 8.0% or greater History of foot ulcer History of stress test history of tooth removal Hyperlipidemia Incontinence 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 Insomnia 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 shoulder 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 Morbid (severe) obesity due to excess calories Neuromuscular dysfunction of bladder, unspecified Neuropathic pain Obesities, morbid Obstructive sleep apnea On home oxygen therapy Osteoporosis Other seasonal allergic rhinitis Paraplegia Pressure sore of left ischium, unstageable Pressure ulcer Pressure ulcer of left buttock, unstageable Pressure ulcer of right buttock, unstageable Pressure ulcer of sacral region, unstageable Primary osteoarthritis, left shoulder Sacral ulcer Sacral wound Self-catheterizes urinary bladder Sepsis Skin necrosis Skin ulcer of left hip Skin ulcer of right hip Sleep apnea Stage II pressure ulcer Stage II pressure ulcer of buttock Type 2 diabetes mellitus with diabetic polyneuropathy Wound infection Home Medications compr.stocking,thigh,reg,large #6 ea 11/11/20 [Rx Last Taken Unknown] compress.stocking,knee,reg,lrg #6 ea 11/12/20 [Rx Last Taken Unknown] cpap mask #1 ea 07/14/21 [Rx Last Taken Unknown] atorvastatin 20 mg tablet 20 mg PO QHS cholesterol lowering 08/29/21 [History Last Taken 04/06/22] acetaminophen 325 mg capsule 650 mg PO Q4H PRN pain 02/28/22 [History Last Taken 04/07/22] amlodipine 10 mg tablet 10 mg PO DAILY heart 02/28/22 [History Last Taken 04/06/22] gabapentin 400 mg capsule 300 mg PO 4X/DAY nerve pain 02/28/22 [History Last Taken 04/07/22] multivitamin 1 tab PO DAILY supplement 02/28/22 [History Last Taken 04/07/22] sennosides 8.6 mg-docusate sodium 50 mg tablet (Senna with Docusate Sodium) 2 tab-cap PO BID stool softener 02/28/22 [History Last Taken 04/07/22] catheter 16 Fr (Garcia Catheter) #1 ea 04/03/22 [Rx Last Taken Unknown] sodium hypochlorite 0.25 % solution (Dakin's Solution) 1 applic topical DAILY wound 04/07/22 [History Last Taken 04/07/22] lurasidone 60 mg tablet (Latuda) 60 mg PO DINNER depression 04/12/22 [History Last Taken Unknown] arginine 7 gram-glutam 7 gram-CaHMB 1.5 vjut-chgjf-qh-min oral pwd pkt (Masood (with collagen)) 1 packet PO BIDCM #0 ea 04/14/22 [Rx Last Taken Unknown] insulin regular hum U-500 conc 500 unit/mL(3 mL) subcut pen (Humulin R U-500 (Conc) Insulin Kwikpen) 60 unit (0.12 mL) subcut TIDCM #0 mL 04/14/22 [Rx Last Taken Unknown] loratadine 10 mg tablet (Claritin) 10 mg PO DAILY #7 tabs 04/14/22 [Rx Last Taken Unknown] peg [id number]-bwzwemrg 1 %-0.2 %-0.2 % eye drops (Artificial Tears ([id number])) 1 drp EACH EYE Q1H PRN DRY EYES #0 mL 04/14/22 [Rx Last Taken Unknown] dulaglutide 4.5 mg/0.5 mL subcutaneous pen injector (Trulicity) 4.5 mg (0.5 mL) subcut .QFR blood sugar #6 mL 04/17/22 [Rx Last Taken Unknown] doxazosin 1 mg tablet See Rx Instructions .Route .COMPLEX #30 tabs 05/17/22 [Rx Last Taken Unknown] lisinopril 10 mg tablet 10 mg PO DAILY 06/04/22 [History Last Taken Unknown] Allergy/AdvReac Type Severity Reaction Status Date / Time metformin AdvReac Unknown unknown Verified 04/07/22 11:06 Family History Father Heart disease Myocardial infarction, Onset Age: 64 Hyperlipemia Mother Heart disease Hypertension Hyperlipemia Uncle Heart disease Grandfather Diabetes Grandmother Diabetes Surgical History History of back surgery Social History Smoking Status: Former smoker alcohol intake: former substance use type: does not use what type of physical activity do you participate in: none Vital Signs Vital Signs Vital Signs: 06/04/22 23:18 06/04/22 23:37 06/05/22 01:15 Temperature 98.5 F Temperature Source Oral Pulse Rate 101 H 99 89 Respiratory Rate 20 H 18 16 Blood Pressure 80/43 L 99/54 L 98/46 L Blood Pressure Mean 55 69 63 Pulse Ox 97 97 99 Oxygen Delivery Method Room Air Room Air Room Air 06/05/22 02:00 Temperature 98.4 F Temperature Source Temporal Pulse Rate 97 Respiratory Rate 16 Blood Pressure 123/49 H Blood Pressure Mean 73 Pulse Ox 96 Oxygen Delivery Method Room Air Weight Weight: 176.266 kg Body Mass Index (BMI) 7588.5 Results Lab / Micro Data Result Diagrams: 06/04/22 00:05 06/04/22 00:05 Labs: Laboratory Results - last 24 hr 06/04/22 00:05: WBC 12.4 H, RBC 3.74 L, Hgb 10.0 L, Hct 32.4 L, MCV 86.6, MCH 26.7 L, MCHC 30.9 L, RDW Std Deviation 54.4 H, RDW Coeff of Fei 17.2 H, Plt Count 382, MPV 9.2, Immature Gran % (Auto) 1.000 H, Neut % (Auto) 67.2, Lymph % (Auto) 16.2 L, [place] % (Auto) 10.6 H, Eos % (Auto) 4.6, Baso % (Auto) 0.4, Absolute Neuts (auto) 8.3 H, Absolute Lymphs (auto) 2.01, Nucleated RBC % 0 06/04/22 00:05: Sodium 137, Potassium 2.6 L*, Chloride 106, Carbon Dioxide 21.0, Anion Gap 10, BUN 28 H, Creatinine 1.43 H, Estim Creat Clear Calc 147.23, Est GFR (MDRD) Af Amer 66, Est GFR (MDRD) Non-Af 55 L, BUN/Creatinine Ratio 19.6, Glucose 133 H, Calcium 8.9, Total Bilirubin 0.40, AST 8 L, ALT 19, Alkaline Phosphatase 75, Total Protein 6.9, Albumin 2.7 L, Globulin 4.2, Albumin/Globulin Ratio 0.6 L, Lipase 105 06/04/22 01:16: Urine Color Yellow, Urine Clarity Clear, Urine pH 5.0, Ur Specific [place] 1.010, Urine Protein 15 H, Urine Glucose (UA) Normal, Urine Ketones Negative, Urine Occult Blood 10 H, Urine Nitrite Negative, Urine Bilirubin Negative, Urine Urobilinogen Normal, Ur Leukocyte Esterase 500 H, Urine RBC 0-5 SEEN, Urine WBC >100 SEEN, Ur Squamous Epith Cells 0-5 SEEN, Ur Renal Epithelial Cell 0-5 SEEN, Urine Bacteria 3+, Hyaline Casts 0-5 SEEN, Urine Mucus 0 SEEN 06/05/22 00:05: Magnesium 1.3 L Micro: Microbiology 06/04/22 00:05 Nasal Secretion SARS-CoV-2 & FLU Antigen (Rapid) - Final Radiology Impression Abdomen/Pelvis CT 06/05/22 23:47 IMPRESSION: Findings suggest sequela of acute infectious or inflammatory colitis. There may also be some infectious or inflammatory enteritis. Electronically Signed: Caro Machado MD at 1:31 EST Reading Location ID and State: [address] [place] [address] , Service support ,
[2022-06-05] MEDS: fentaNYL 100 MCG/2 ML Ampul 50 MCG IV (05:16)
[2022-06-05] MEDS: 0.9% Normal Saline 1,000 ML 999 ML IV (05:17)
--- NOTE | 2022-06-05 06:25 | ED.RN ---
Pt incontinent of soft stool, cleaned patient up, new brief and new linens changed. Sacral wound dressing found to be soiled, pt states a wet to dry dressing. This RN cleans wound and applies new wet to dry dressing.
--- NOTE | 2022-06-05 07:52 | MRI_ITS ---
HISTORY: Abnormal CT. Diarrhea, unable to move bilateral legs. Patient refused postcontrast imaging. TECHNIQUE: Multiplanar and multisequence MR images of the lumbar spine were obtained without intravenous contrast. 148 images. COMPARISON: CT earlier same day and 08/18/2021. FINDINGS: VERTEBRAE: Large amount of artifact from posterior spinal fusion hardware of T11-L3. Chronic mild compression fractures of T12 and L1. Mild signal heterogeneity in the L1 vertebral body, likely sequela of old trauma without suspicious confluent T1 hypointensity. Degenerative bone marrow endplate changes at the postoperative levels without destructive endplate changes. ALIGNMENT: No anterior or posterior subluxation. SPINAL CANAL: Diminutive caliber of the spinal cord above the level of fusion at 3 mm. Limited evaluation of the lower spinal cord and spinal canal due to artifact from spinal fusion but the cord appears disrupted or possibly expansile from the T11 to T12-L1 level. Normal morphology and position of the conus medullaris at the upper L2 level. INTERVERTEBRAL DISCS: T10-11: No significant posterior disc protrusion or central canal stenosis. Facet arthropathy with mild bilateral foraminal narrowing. T11-12: Postoperative change without significant posterior disc protrusion or central canal stenosis. T12-L1: Limited evaluation due to artifact. Degenerative and postoperative change. L1-2, L2-3: No significant posterior disc protrusion, central canal stenosis, or foraminal narrowing. L3-4: Mild disc bulge with facet arthropathy superimposed on a developmentally narrow spinal canal and prominent dorsal epidural fat resulting in severe narrowing of the thecal sac and mild-moderate bilateral foraminal narrowing. L4-5: Mild disc bulge with facet arthropathy superimposed on a developmentally narrow spinal canal and prominent dorsal epidural fat resulting in moderate-severe central canal stenosis and moderate bilateral foraminal narrowing. L5-S1: Minimal disc bulge with facet arthropathy resulting in no significant central canal stenosis and mild-moderate bilateral foraminal narrowing. SOFT TISSUES: Posterior subcutaneous and intramuscular edema. MRI/Spine Lumbar (Routine) IMPRESSION: Limited examination due to artifact from T11-L3 posterior spinal fusion hardware and noncontrast technique. Spinal cord atrophy above the level of fusion with abnormal appearance of the spinal cord from T11 to L1, possible mass or prior spinal cord trauma. Chronic mild compression fractures of T12 and L1. Mild bone marrow signal heterogeneity in the L1 vertebral body, likely old trauma. Infection considered less likely. Multilevel degenerative disc disease as above. Electronically Signed: Maribeth Ellis MD at 11:45 EST ,
[2022-06-05] MEDS: 0.9% Normal Saline 1,000 ML 125 ML IV (10:15)
[2022-06-05] MEDS: Potassium Chloride 10mEq/100mL 10 MEQ/100 ML IV.SOLN. 100 MEQ IV BOLUS ×4 (10:15→13:23)
[2022-06-05] MEDS: Potassium Chloride Oral Tablet 20 MEQ 40 MEQ PO (10:15)
[2022-06-05] MEDS: Ceftriaxone 1 GM/50 ML BAG IV (12:47)
--- NOTE | 2022-06-05 15:43 | WOUNDNOTE ---
wound photo: sacrum
[2022-06-05 15:58] LABS: Anion Gap 7 (5-15); BUN 24 mg/dL (7-18); BUN/Creat Ratio 22.4 RATIO (10-20); Chloride 106 mmol/L (98-107); Creatinine, Serum 1.07 mg/dL (0.70-1.30); EST Glomerular Filtration Rate 77 mL/min (>60); Est Glom Filt Rate - Afr Amer 93 mL/min (>60); Estimated Creatinine Clearance 86.63 ml/min; Glucose 145 mg/dL (74-106); Potassium 3.3 mmol/L (3.5-5.1); Sodium Level 136 mmol/L (136-145)
[2022-06-05] MEDS: 0.9% Normal Saline 1,000 ML 75 ML IV (15:58)
--- NOTE | 2022-06-05 16:54 | CPS ---
patient has prior knowledge and will do on own later.
[2022-06-05] MEDS: Juven (unflavored) Packet 1 PACKET PO (16:58)
[2022-06-05 17:10] LABS: Bedside Glucose 137 mg/dL (74-106)
--- NOTE | 2022-06-05 19:19 | PCM.HP.STD ---
HPI - General General Date of Admission: 06/05/22 Date of Service: 06/05/22 Chief Complaint: Nausea/Vomiting/diarrhea HPI Narrative SERENITY MACHADO, is a 52 M who presented emergency department [facility] on 06/05/2022 complaining of nausea vomiting and diarrhea. Patient indicates that his symptoms started approximately on Sunday of last week. He initially had some nausea and vomiting but that has since subsided. He has had ongoing diarrhea so severe that his chronic sacral decubitus is worsening and they have gone through all of his dressings in about 4 days. He was discharged from longterm facility on and is concerned he may need to go back. He states that if he can get the dressing changes he needs and is not having such severe diarrhea that he should be able to go home. He has a chronic catheter now. He is tolerating p.o. however its been minimal and he feels like he is somewhat dehydrated. He denies any fever or chills. And has had no other significant symptoms. He he does have history of frequent urinary tract infections related to neurogenic bladder from paraplegia and has had a chronic Garcia in since his last hospitalization at which time he was discharged on 04/14/2022. Vital signs upon presentation emergency department demonstrated temperature of 98.5, heart rate 101, respiratory rate 20, initial blood pressure was 80/43 with repeat at 99/54 after IV fluids, and a pulse ox of 97% on room air. CBC showed a mild leukocytosis at 12.4 with no left shift present and a monocytosis present, chronic stable anemia with a hemoglobin of 10 and normal platelets. His chemistry panel showed normal sodium but hypokalemia with a potassium of 2.6 and a BUN of 28 and a serum creatinine of 1.43. His baseline serum creatinine is between 0.7 and 0.9. Liver function was unremarkable. With the diarrhea and enteric panel and C. difficile were obtained and were negative. A CT of the abdomen pelvis was obtained and showed findings suggestive of sequela of acute infectious or inflammatory colitis with also some infectious versus inflammatory enteritis. They also noted some abnormality at the T1 vertebral body. ER physician discussed the case with spine surgery and recommended an MRI be performed. MRI was performed and showed a large amount of artifact from previous fusion, chronic mild compression fracture of T12 and L1 with mild signal heterogenicity in the L1 vertebral body that was likely sequela of old trauma without suspicious confluent T1 hypointensity suggestive of mass or infection. His UA was also suggestive of infection. Given these findings it was felt that he was stable for admission here and request for admission was made. The emergency department he was started on IV antibiotics and his potassium and magnesium were replaced. [facility] Medical History Acute respiratory failure, unspecified whether with hypoxia or hypercapnia Alcohol abuse Anemia Anemia Anxiety and depression Anxiety disorder Bacteremia due to Enterococcus Avelar's palsy Blister (nonthermal), right foot, initial encounter Chronic ulcer of right foot with fat layer exposed CPAP (continuous positive airway pressure) dependence Decubitus ulcer of sacral region, stage 4 Decubitus ulcer, buttock Depression Diabetes DVT (deep venous thrombosis) Edema of both lower extremities Essential (primary) hypertension Former smoker Headache Hemoglobin A1c 8.0% or greater History of foot ulcer History of stress test history of tooth removal Hyperlipidemia Incontinence 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 Insomnia Left shoulder pain 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) use of anticoagulants 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) 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 Morbid (severe) obesity due to excess calories Neuromuscular dysfunction of bladder, unspecified Neuropathic pain Obesities, morbid Obstructive sleep apnea On home oxygen therapy Osteoporosis Other seasonal allergic rhinitis Paraplegia Pressure sore of left ischium, unstageable Pressure ulcer Pressure ulcer of left buttock, unstageable Pressure ulcer of right buttock, unstageable Pressure ulcer of sacral region, unstageable Primary osteoarthritis, left shoulder Sacral ulcer Sacral wound Self-catheterizes urinary bladder Sepsis Skin necrosis Skin ulcer of left hip Skin ulcer of right hip Sleep apnea Stage II pressure ulcer Stage II pressure ulcer of buttock Type 2 diabetes mellitus with diabetic polyneuropathy Wound infection Home Medications compr.stocking,thigh,reg,large #6 ea 11/11/20 [Rx Last Taken Unknown] compress.stocking,knee,reg,lrg #6 ea 11/12/20 [Rx Last Taken Unknown] cpap mask #1 ea 07/14/21 [Rx Last Taken Unknown] atorvastatin 20 mg tablet 20 mg PO QHS cholesterol lowering 08/29/21 [History Last Taken 06/04/22] acetaminophen 325 mg capsule 650 mg PO Q4H PRN pain 02/28/22 [History Last Taken 06/04/22] amlodipine 10 mg tablet 10 mg PO DAILY heart 02/28/22 [History Last Taken 06/04/22] gabapentin 400 mg capsule 400 mg PO 4X/DAY nerve pain 02/28/22 [History Last Taken 06/04/22] multivitamin 1 tab PO DAILY supplement 02/28/22 [History Last Taken 06/04/22] catheter 16 Fr (Garcia Catheter) #1 ea 04/03/22 [Rx Last Taken Unknown] lurasidone 60 mg tablet (Latuda) 60 mg PO DINNER depression 04/12/22 [History Last Taken 06/04/22] insulin regular hum U-500 conc 500 unit/mL(3 mL) subcut pen (Humulin R U-500 (Conc) Insulin Kwikpen) 60 unit (0.12 mL) subcut TIDCM #0 mL 04/14/22 [Rx Last Taken 06/04/22] peg [id number] 1 %-0.2 %-0.2 % eye drops (Artificial Tears ([id number])) 1 drp EACH EYE Q1H PRN DRY EYES #0 mL 04/14/22 [Rx Last Taken 06/04/22] docusate sodium 50 mg capsule 50 mg PO DAILY CONSTIPATION 06/05/22 [History Last Taken 05/30/22] doxazosin 1 mg tablet 1 mg PO QHS PROSTATE 06/05/22 [History Last Taken 06/04/22] dulaglutide 4.5 mg/0.5 mL subcutaneous pen injector (Trulicity) 4.5 mg subcut FR blood sugar 06/05/22 [History Last Taken 06/02/22] furosemide 40 mg tablet 40 mg PO BID ADEMA 06/05/22 [History Last Taken 06/04/22] hydrochlorothiazide 25 mg tablet 25 mg PO DAILY BP 06/05/22 [History Last Taken 06/04/22] lisinopril 40 mg tablet 40 mg PO DAILY BP 06/05/22 [History Last Taken 06/04/22] potassium chloride 20 mEq tablet,extended release(part/cryst) 20 meq PO BID SUPPLEMENT 06/05/22 [History Last Taken 06/04/22] Allergy/AdvReac Type Severity Reaction Status Date / Time metformin AdvReac Unknown Diarrhea Verified 06/05/22 14:05 Family History Father Heart disease Myocardial infarction, Onset Age: 64 Hyperlipemia Mother Heart disease Hypertension Hyperlipemia Uncle Heart disease Grandfather Diabetes Grandmother Diabetes Surgical History History of back surgery Social History Smoking Status: Former smoker alcohol intake: former substance use type: does not use what type of physical activity do you participate in: none ROS Constitutional Constitutional: Reports anorexia and malaise; Denies change in weight, chills, fatigue, fever(s), night sweats, weakness or other Eyes Eyes: Denies blurry vision, change in eye color, change in vision, discharge from eye(s), double vision, erythema, eye pain, loss of vision or other ENT HEENT: Denies abnormal hearing, dysphagia, ear pain, epistaxis, headache(s), hearing loss, nasal congestion, nasal discharge, post nasal drip, sinus pressure, sore throat or other Cardiovascular Cardiovascular: Denies chest pain, claudication, dyspnea on exertion, edema, lightheadedness, orthopnea, palpitations, paroxysmal nocturnal dyspnea, rapid heart rate, syncope or other Respiratory/Chest Respiratory/Chest: Denies cough, dyspnea, excessive phlegm production, hemoptysis, productive cough, shortness of breath at rest, shortness of breath with exertion, wheezing or other Gastrointestinal Gastrointestinal: Reports abdominal pain, diarrhea, loose stools, nausea and vomiting; Denies coffee ground emesis, constipation, dyspepsia, hematemesis, hematochezia, melena or other Genitourinary Genitourinary: Reports difficulty urinating; Denies burning urination, dysuria, hematuria, nocturia, urinary frequency, urinary hesitancy, urinary incontinence, urinary urgency or other Musculoskeletal Musculoskeletal: Denies arthralgias, back pain, joint pain, joint stiffness, joint swelling, myalgias, neck pain or other Neurologic Neurologic: Reports abnormal gait, focal weakness and numbness; Denies abnormal speech, confusion, disequilibrium, dizziness, headache(s), paresthesias, seizure-like activity, seizures, syncope, tingling, tremor(s) or other Psychiatric Psychiatric: Reports depression; Denies anxiety, homicidal ideation, suicidal ideation or other Endocrine Endocrinology: Denies change in body appearance, cold intolerance, excessive sweating, heat intolerance, polydipsia, polyuria or other Hematologic/Lymphatic Hematologic/Lymphatic: Denies anemia, easy bleeding, easy bruising, lymphadenopathy or other Allergic/Immunologic Allergic/Immunologic: Denies rhinitis, hives, eczemia, asthma or other Vital Signs Vital Signs Vital Signs: 06/04/22 23:18 06/04/22 23:37 06/05/22 01:15 Temperature 98.5 F Temperature Source Oral Pulse Rate 101 H 99 89 Respiratory Rate 20 H 18 16 Respiratory Effort Blood Pressure 80/43 L 99/54 L 98/46 L Blood Pressure Mean 55 69 63 Blood Pressure Source Blood Pressure Position Blood Pressure Location Pulse Ox 97 97 99 Oxygen Delivery Method Room Air Room Air Room Air 06/05/22 02:00 06/05/22 03:00 06/05/22 04:00 Temperature 98.4 F 98.4 F 97.9 F Temperature Source Temporal Temporal Temporal Pulse Rate 97 89 93 Respiratory Rate 16 11 L 18 Respiratory Effort Blood Pressure 123/49 H 98/51 L 99/52 L Blood Pressure Mean 73 66 67 Blood Pressure Source Blood Pressure Position Blood Pressure Location Pulse Ox 96 96 96 Oxygen Delivery Method Room Air Room Air Room Air 06/05/22 05:00 06/05/22 05:00 06/05/22 08:17 Temperature 98.2 F 98.1 F Temperature Source Temporal Temporal Pulse Rate 94 94 95 Respiratory Rate 21 H 21 H 18 Respiratory Effort Blood Pressure 93/44 L 93/44 L 116/62 Blood Pressure Mean 60 60 80 Blood Pressure Source Blood Pressure Position Blood Pressure Location Pulse Ox 99 99 97 Oxygen Delivery Method Room Air Room Air Room Air 06/05/22 10:23 06/05/22 12:08 06/05/22 12:52 Temperature 98.1 F Temperature Source Temporal Pulse Rate 84 91 91 Respiratory Rate 18 18 18 Respiratory Effort Blood Pressure 113/54 L 128/90 H 128/90 H Blood Pressure Mean 73 102 102 Blood Pressure Source Blood Pressure Position Blood Pressure Location Pulse Ox 95 98 98 Oxygen Delivery Method Room Air Room Air Room Air 06/05/22 15:30 06/05/22 16:07 Temperature 98.6 F Temperature Source Oral Pulse Rate 90 Respiratory Rate 18 Respiratory Effort Normal Non-Labored Blood Pressure 112/42 L Blood Pressure Mean 65 Blood Pressure Source Monitor Blood Pressure Position Semi-Fowlers Blood Pressure Location Right Arm Pulse Ox 97 Oxygen Delivery Method Room Air Weight Weight: 173.5 kg Body Mass Index (BMI) 51.8 Physical Exam Const alert, oriented x3, no apparent distress and well nourished Constitutional Narrative: Morbidly obese, middle-aged, white male sitting up in bed has just finished eating and watching television, appears comfortable at this time General Appearance: cooperative HEENT normocephalic, head/scalp atraumatic, hearing grossly normal bilaterally and moist oral mucous membranes HEENT Narrative: Mallampati 3-4, no thrush Eyes PERRL, EOMs intact bilaterally and conjunctivae normal Eyes Narrative: Scleral icterus Neck no lymphadenopathy and supple Neck Narrative: Short and thick, trachea midline, no thyroid enlargement Resp normal respiratory effort, no retractions, no use of accessory muscles and clear to auscultation bilaterally Auscultation: Negative for crackles, rhonchi or wheezes Cardio regular rate, regular rhythm, S1 normal heart sound, S2 normal heart sound, no murmurs, no rub, no gallops and no clicks GI GI Narrative: Mild diffuse tenderness with no point tenderness, bowel sounds are normal with no distention and abdomen is soft Extremity Extremity Narrative: Raise chronic bilateral lower extremity edema, no movement in bilateral lower extremities, plantar flexion contractures of both ankles, no cyanosis or clubbing Skin No no wounds, skin turgor normal, no jaundice, no petechiae and no mottling Skin Narrative: Sacral decubitus which is chronic but unable to visualize at this time Neuro oriented x3 and CN's II-XII intact bilaterally Neuro Narrative: Bilateral lower extremity chronic paraplegia, no upper extremity deficits Speech: speech normal Psych affect normal Psych Narrative: Appropriately interactive, good eye contact Results Lab / Micro Data Attestation: I reviewed the patient's lab results. Result Diagrams: 06/04/22 00:05 06/05/22 15:14 Labs: Laboratory Results - last 24 hr 06/04/22 00:05: WBC 12.4 H, RBC 3.74 L, Hgb 10.0 L, Hct 32.4 L, MCV 86.6, MCH 26.7 L, MCHC 30.9 L, RDW Std Deviation 54.4 H, RDW Coeff of Fei 17.2 H, Plt Count 382, MPV 9.2, Immature Gran % (Auto) 1.000 H, Neut % (Auto) 67.2, Lymph % (Auto) 16.2 L, Sawyer % (Auto) 10.6 H, Eos % (Auto) 4.6, Baso % (Auto) 0.4, Absolute Neuts (auto) 8.3 H, Absolute Lymphs (auto) 2.01, Nucleated RBC % 0 06/04/22 00:05: Sodium 137, Potassium 2.6 L*, Chloride 106, Carbon Dioxide 21.0, Anion Gap 10, BUN 28 H, Creatinine 1.43 H, Estim Creat Clear Calc 147.23, Est GFR (MDRD) Af Amer 66, Est GFR (MDRD) Non-Af 55 L, BUN/Creatinine Ratio 19.6, Glucose 133 H, Calcium 8.9, Total Bilirubin 0.40, AST 8 L, ALT 19, Alkaline Phosphatase 75, Total Protein 6.9, Albumin 2.7 L, Globulin 4.2, Albumin/Globulin Ratio 0.6 L, Lipase 105 06/04/22 01:16: Urine Color Yellow, Urine Clarity Clear, Urine pH 5.0, Ur Specific Jeannette 1.010, Urine Protein 15 H, Urine Glucose (UA) Normal, Urine Ketones Negative, Urine Occult Blood 10 H, Urine Nitrite Negative, Urine Bilirubin Negative, Urine Urobilinogen Normal, Ur Leukocyte Esterase 500 H, Urine RBC 0-5 SEEN, Urine WBC >100 SEEN, Ur Squamous Epith Cells 0-5 SEEN, Ur Renal Epithelial Cell 0-5 SEEN, Urine Bacteria 3+, Hyaline Casts 0-5 SEEN, Urine Mucus 0 SEEN 06/05/22 00:05: Magnesium 1.3 L 06/05/22 15:00: Sodium Cancelled, Potassium Cancelled, Chloride Cancelled, Carbon Dioxide Cancelled, Anion Gap Cancelled, BUN Cancelled, Creatinine Cancelled, Estim Creat Clear Calc Cancelled, Est GFR (MDRD) Af Amer Cancelled, Est GFR (MDRD) Non-Af Cancelled, BUN/Creatinine Ratio Cancelled, Glucose Cancelled, Calcium Cancelled, Magnesium Cancelled 06/05/22 15:14: Sodium 136, Potassium 3.3 L, Chloride 106, Carbon Dioxide 23.0, Anion Gap 7, BUN 24 H, Creatinine 1.07, Estim Creat Clear Calc 86.63, Est GFR (MDRD) Af Amer 93, Est GFR (MDRD) Non-Af 77, BUN/Creatinine Ratio 22.4 H, Glucose 145 H, Calcium 9.0, Magnesium 2.0 06/05/22 16:45: POC Glucose 137 H Micro: Microbiology 06/05/22 00:45 Stool Stool Lactoferrin - Final 06/04/22 00:45 Stool C. difficile DNA Amplification - Final 06/04/22 00:45 Stool Enteric Bacteriology - Final 06/04/22 00:05 Nasal Secretion SARS-CoV-2 & FLU Antigen (Rapid) - Final Radiology Impression Lumbar Spine MRI 06/05/22 07:52 IMPRESSION: Limited examination due to artifact from T11-L3 posterior spinal fusion hardware and noncontrast technique. Spinal cord atrophy above the level of fusion with abnormal appearance of the spinal cord from T11 to L1, possible mass or prior spinal cord trauma. Chronic mild compression fractures of T12 and L1. Mild bone marrow signal heterogeneity in the L1 vertebral body, likely old trauma. Infection considered less likely. Multilevel degenerative disc disease as above. Electronically Signed: Maribeth Ellis MD at 11:45 EST , Abdomen/Pelvis CT 06/05/22 23:47 IMPRESSION: Findings suggest sequela of acute infectious or inflammatory colitis. There may also be some infectious or inflammatory enteritis. Electronically Signed: Caro Machado MD at 1:31 EST , Assessment & Plan Assessment/Plan (1) Urinary tract infection: (2) Enteritis: (3) Sacral decubitus ulcer, stage IV: (4) Abnormal computed tomography angiography (CTA) of abdomen and pelvis: (5) Hypokalemia: (6) Hypomagnesemia: (7) Leukocytosis: (8) ION (acute kidney injury): PLAN: Plan Acute enteritis -Patient presented with abdominal pain/nausea/vomiting -CT of the abdomen pelvis showed features suggestive of acute infectious or inflammatory colitis -C. difficile and enteric panel are negative -Check fecal calprotectin and lactoferrin -We will start Zosyn -Consider GI consult if symptoms do not resolve Acute urinary tract infection -Patient does have issues with chronic UTIs related to his paraplegia and intermittent cathing -Urine culture sent -We will treat with Zosyn as patient has had multiple organisms with various resistant patterns previously -May need ID involvement depending on cultures results and sensitivities Acute hypokalemia -Repleted in the emergency department -Repeat in a.m. Acute hypomagnesemia -Repleted in the emergency department -Repeat in a.m. Abnormal CT of the abdomen pelvis -CT also suggested abnormality within the L1 vertebral vertebrae that was concerning -MRI recommended to the ED by spine surgery -MRI was not suggestive of any acute infectious abnormalities and indicated it was likely the result of previous fusion -No further follow-up needed at this time Chronic sacral decubitus -Consult wound care -Patient will likely need placement as his mother who is in her 80s is having difficulty helping care for him at home Debility -PT/OT consultation -We will likely need placement at discharge -Case management consultation DM-2 -Patient is on U500 insulin -Continue home insulin doses -Hold home Trulicity -We will continue home insulin doses with sliding scale -Accu-Cheks 3 times daily and at bedtime -Suspect diet is a bit different here than he is on at baseline and that is why we have had to cut his home insulin Hypertension -Continue Lasix/continue home amlodipine -Would recommend complete discontinuation of hydrochlorothiazide at discharge as patient has ongoing issues with electrolyte disturbances and is already on Lasix -Will hold this hospitalization -As needed labetalol available for systolic greater than 160 Hyperlipidemia -Continue home statin Paraplegia -Patient is at baseline ROX -Nocturnal CPAP with 4 L bleed -Patient has home unit and okay to use Morbid obesity -Complicates treatment, prognosis, outcomes -BMI is 51.9 -Recommend weight loss DVT prophylaxis -Lovenox -SCDs CODE STATUS -Full code as per discussion on admission the emergency department Charges/Coding Visit Charges Inpatient E&M: 19906 Init Hosp L3
--- NOTE | 2022-06-05 19:30 | NURSING ---
Under Emergency Charting
[2022-06-05] MEDS: Acetaminophen 325 MG Tablet 650 MG PO (20:04)
[2022-06-05] MEDS: Doxazosin 1 MG Tablet PO (22:15)
[2022-06-05] MEDS: Atorvastatin Calcium 20 MG Tablet PO (22:15)
[2022-06-05] MEDS: Gabapentin 400 MG Capsule PO (22:16)
[2022-06-05] MEDS: Enoxaparin 40 MG/0.4 ML Syringe SC (22:18)
[2022-06-05] MEDS: Potassium Chloride Oral Tablet 20 MEQ PO (22:18)
[2022-06-05] MEDS: Furosemide 40 MG Tablet PO (22:18)
[2022-06-05 22:40] LABS: Bedside Glucose 174 mg/dL (74-106)
--- NOTE | 2022-06-05 23:47 | CT_ITS ---
STUDY: CT ABDOMEN AND PELVIS WITH CONTRAST REASON FOR EXAM: Male, 52 years old patient with abdominal pain. RADIATION DOSAGE (If Supplied By Facility): CTDIvol = ( 81.8 ) mGy, DLP = ( 2134.91 ) mGycm TECHNIQUE: Transaxial images were obtained from the dome of the diaphragm to the symphysis pubis without oral contrast. 100 mL of IV Isovue-370 was administered. Sagittal and coronal images were reconstructed. Individualized dose optimization techniques were used for this CT. COMPARISON: CT of the abdomen and pelvis dated August 18, 2021. FINDINGS: Curvilinear opacities are visible at the lung bases and lingula consistent with subsegmental atelectasis. The visualized portions of the heart are within normal limits. Normal liver. There are multiple gallstones. Normal spleen. Normal pancreas. Normal bilateral adrenal glands. Normal right kidney. Normal left kidney. Normal visualized stomach. There is no obvious dilated bowel, ascites or pneumoperitoneum. There is large amount of bowel gas. There is a fluid present in portions of the small bowel. There is liquid stool visible throughout the colon in addition to gas suggesting diarrhea and possible infectious or inflammatory colitis. The appendix is visualized and appears normal. Normal abdominal aorta. Normal inferior vena cava. Normal retroperitoneum. The urinary bladder is incompletely distended. There is gas visible in the urinary bladder. The gallbladder wall is thickened measuring approximately 9.4 mm. There are prostatic calcifications. There is an umbilical hernia containing fat. There is abnormal attenuation within the L1 vertebral body that may be the result of metastasis or infection. The patient has had surgical fusion of the T11, T12, L2 and L3 vertebral segments with interpedicular screws and rods. There are degenerative changes of both hips. CT/Abdomen/Pelvis W IV Cont ONLY IMPRESSION: Findings suggest sequela of acute infectious or inflammatory colitis. There may also be some infectious or inflammatory enteritis. Electronically Signed: Caro Yo MD at 1:31 EST ,
[2022-06-06 04:20] VITALS: BP 137/66; PULSE 81; RESP 18; TEMP 36.5; O2SAT 98
[2022-06-06] MEDS: CLARIFY ORDER 1 EACH NOTE (06:08)
[2022-06-06 06:31] LABS: Bedside Glucose 152 mg/dL (74-106)
[2022-06-06 06:50] LABS: Absolute Lymphocyte Count 0.95 X10^3/uL (0.83-4.51); Absolute Neutrophil Count 6.8 X10^3/uL (2.0-7.7); Basophil# 0.06 X10^3/uL; Basophil% 0.6 % (0-1); Eosinophil# 0.78 X10^3/uL; Eosinophils% 8.1 % (0-5); Hematocrit 31.5 % (40-54); Hemoglobin 9.7 g/dL (13.0-16.5); Lymphocyte # 0.95 X10^3/ul (0.83-4.51); Lymphocyte % 9.9 % (19-41); Mean Corp Hgb Conc 30.8 g/dL (32-36); Mean Corpuscular Hgb 27.1 pg (27.0-32.0); Mean Platelet Vol. 9.4 fl (6.2-12.0); Monocyte# 0.94 X10^3/uL; Monocyte% 9.8 % (0-10); NRBC Flagged by Analyzer 0 % (0-5); Neutrophil # 6.77 X10^3/uL (2.7-7.7); Neutrophil % 70.7 % (47-70); Platelet Count 357 K/mm3 (150-450); RBC Distribution Width CV 17.2 % (11.6-14.6); Red Blood Count 3.58 M/mm3 (4.6-6.2); White Blood Count 9.6 K/mm3 (4.4-11.0)
[2022-06-06 07:24] LABS: ALB/GLOB Ratio 0.6 RATIO (0.9-2.4); AST(SGOT) 11 U/L (15-37); Alanine Aminotransfer ALT/SGPT 18 U/L (16-61); Albumin, Serum 2.5 g/dL (3.2-5.0); Alkaline Phosphatase 70 U/L (45-117); Anion Gap 7 (5-15); BUN 23 mg/dL (7-18); BUN/Creat Ratio 25.7 RATIO (10-20); Chloride 106 mmol/L (98-107); EST Glomerular Filtration Rate 94 mL/min (>60); Est Glom Filt Rate - Afr Amer 114 mL/min (>60); Estimated Creatinine Clearance 102.99 ml/min; Globulin 4.4 g/dL (2.2-4.2); Glucose 156 mg/dL (74-106); Magnesium 2.1 mg/dL (1.6-2.6); Protein, Total 6.9 g/dL (6.4-8.2); Sodium Level 134 mmol/L (136-145); Thyroid Stim Hormone (TSH) 1.69 uIU/mL (0.358-3.74)
[2022-06-06 07:30] LABS: Phosphorus 3.5 mg/dL (2.5-4.9)
[2022-06-06] MEDS: DAKIN'S SOL HALF STRENGTH (=0.25%) 1 APPLIC TOPICAL ×2 (08:14→22:24)
--- NOTE | 2022-06-06 08:36 | WOUNDNOTE ---
Pt tolerated sacral dressing well. wound remains stable. no sign of infection noted. Pt states he know plans to return home. patient has had no diarrhea since admission. states the reason he was admitted was for diarrhea and now that it has stopped, his plan is to return home and have his 85 yr old mother and his 16 yr old daughter change the sacral dressing. will discuss with case management.
[2022-06-06 08:42] VITALS: BP 115/45; PULSE 87; RESP 18; TEMP 36.8; O2SAT 96
[2022-06-06] MEDS: Insulin Lispro 100 UNIT/ML INSULN.PEN SC ×2 (08:59→11:38)
[2022-06-06] MEDS: Juven (unflavored) Packet 1 PACKET PO ×2 (08:59→17:19)
[2022-06-06] MEDS: Insulin U-500 UNITS/ML PEN 60 UNITS SC ×3 (08:59→17:19)
[2022-06-06] MEDS: Multivitamins,Therapeutic Tablet 1 TABLET PO (09:00)
[2022-06-06] MEDS: Enoxaparin 40 MG/0.4 ML Syringe SC ×2 (09:00→22:21)
[2022-06-06] MEDS: amLODIPine 10 MG Tablet PO (09:00)
[2022-06-06] MEDS: Furosemide 40 MG Tablet PO ×2 (09:00→22:21)
[2022-06-06] MEDS: Gabapentin 400 MG Capsule PO ×4 (09:00→22:21)
[2022-06-06] MEDS: Lisinopril 40 MG Tablet PO (09:00)
[2022-06-06] MEDS: Potassium Chloride Oral Tablet 20 MEQ PO ×2 (09:00→22:21)
[2022-06-06] MEDS: Acetaminophen 325 MG Tablet 650 MG PO ×2 (09:03→15:45)
[2022-06-06 09:22] VITALS: BP 115/45; PULSE 68; RESP 18; TEMP 36.8; O2SAT 96
[2022-06-06 12:00] LABS: Bedside Glucose 200 mg/dL (74-106)
--- NOTE | 2022-06-06 13:07 | CHAPLAIN ---
Type of Pastoral Visit _x__ Initial Visit ___ Follow-up Visit ___ On-call Visit ___ General Patient Visit ___ Spiritual Assessment ___ Family Conference ___ Bereavement ___ Rapid Response ___ Code Blue ___ Other (describe below) Pastoral Care Referral From _x__ Patient ___ Family ___ Nurse ___ Physician ___ Rn First Assistant ___ Fuller Brush Worker ___ Other (describe below) Sacrament/Intervention _x__ Active listening ___ Anointing ___ Shinto ___ Bereavement ___ Communion _x__ Freya exploration ___ _x__ Life review _x__ Prayer ___ Reconciliation ___ Sacrament of Sick _x__ Supportive presence ___ Wedding ___ Other (describe below) Pastoral Comments patient has been seen before in previous admissions; pt is talkative and gives updates on his health, stay in SN and LT facilities; pt has concerns about finances and paying for daughter's college and normal living expenses; pt speaks of his freya and the expression of it by which TV preachers he enjoys to watch; pt has leads in some casual conversation about life; pt welcomes prayer and presence
[2022-06-06 14:30] VITALS: BP 90/50; PULSE 92; RESP 18; TEMP 37.4; O2SAT 95
--- NOTE | 2022-06-06 14:49 | CASEMGMT ---
DEENA PRASAD Assessment: Face to Face with pt for initial transition planning/care coordination assessment. DEENA PRASAD introduced self and role at [facility], pt voices understanding and consents to assessment. Pt in bed. Appears to be in no distress. Pt is A/O x4 and answers all questions appropriately at this time. Care providers, pharmacy, and demographics verified/updated. Admitting Dx: Diarrhea/Debility. PCP: [facility]. Specialists: Tiburcio, Neurology; Varun, Psychiatry; Cr Baez. Preferred Pharmacy: [facility]. Pt also uses [facility] in [place]. Insurance: [employer] / [employer]. Pt plans to switch to [employer]. Prescription Benefit: Yes. LW/HPOA: Pt reports have a LW/HPOA. Pt states dtr, Gris, is HPOA. Advised that it can be scanned in to be placed on file. Pt states he completed the paperwork with a SW here so it may be on file. LNOK: Rafaela Yo, mother. Living Arrangements: Pt lives with his mother (Rafaela), dtr (Jackie), and dtr's bf (Tripp). Pt lives in a one story ranch. The ranch has a ramp in the garage and at the back entrance. Pt needs assistance with ADLs. Pt reports his mother and dtr assist with ADLs. However, pt then said [facility] comes in once per week to bathe his mother. Transportation: [employer] [place] [employer] transports. DME/HHC/SNF: Pt has the following: Electric wheelchair, shower chair, two manual wheelchairs, a bariatric bed, grab bars, and two handicap toilets. Pt private pays a PHOTOTYPESETTING EQUIPMENT MONITOR through [facility] to come to the home once per week. Pt pays the PHOTOTYPESETTING EQUIPMENT MONITOR $25.00 per hour. Pt has had and [facility]HC in the past. Pt has been to [facility] three times. Pt would like to return home with [facility]. If insurance covers, pt choices [facility]. If insurance does not [facility], pt voiced he has no preference. Pt states he needs wound supplies. Pt has his first appt on 06/15/22 with [facility]. Pt stated [facility] will be at the home tomorrow to assess for Waiver Service needs. Pt had services previously but they were stopped d/t SNF stay. Pt's Button Cutting Machine Operator was [place] [facility]. Pt receives Social Security. CM to follow. Advised pt to ask CM if any further question/concerns/needs arise, voices understanding. Pt Goal: Home with HHC. However, pt is open to SNF if necessary. Plan: TBD. ? ? ?
--- NOTE | 2022-06-06 15:18 | CASEMGMT ---
Addendum entered by Adriana Turner 06/06/22 15:43: Referral faxed to [facility] currently. Original Note: DEENA PRASAD in to pt room to get permission to call his mother to verify that she is able to care for pt at home. Pt gave permission. Pt states he has no preference of [facility]. States l I will take whoever will see me. TC to pt mother, she answers the phone sob. When asked if she is ok, she states No, I'm not ok. I can't walk. She states she has shingles. Asked if she felt like she can care for the patient at home. She states she cannot determine this right now. States that pt dtr is not home but was sick as well. She states she can talk to her tonight and then DEENA PRASAD will touch base tomorrow morning to find out determination. Will continue with attempting to find homecare should pt mother and dtr be willing to continue to care for pt.
--- NOTE | 2022-06-06 15:59 | PN.HOSP_ITS ---
Subjective Subjective Patient still with a little bit of nausea however p.o. intake last evening was good. He at the time of my eval he had yet to eat breakfast. Diarrhea has stopped. No other issues noted at this time. Patient states he would like to go home as long as we can arrange for dressing supplies for him at home. He went through a month of supplies in 4 days due to his diarrhea. Objective Data Objective Data Vital Signs: Vital Signs Temp Pulse Resp BP Pulse Ox O2 Del Method 99.4 F H 92 18 90/50 L 95 Room Air 06/06/22 14:30 06/06/22 14:30 06/06/22 14:30 06/06/22 14:30 06/06/22 14:30 06/06/22 14:30 Oxygen Delivery Method Room Air Weight: 173.5 kg Body Mass Index (BMI) 51.8 Intake & Output: Intake and Output for Last 24 Hours 06/04/22 06/05/22 06/06/22 23:59 23:59 23:59 Intake Total 3877.08 / 3877.08 406.25 / 406.25 Output Total 950 / 1550 1999 / 1999 Balance 2927.08 / 2327.08 -1593.75 / -1593.75 Lab / Micro Data Result Diagrams: 06/06/22 06:27 06/06/22 06:27 Labs: Laboratory Results - last 24 hr 06/05/22 16:45: POC Glucose 137 H 06/05/22 22:00: POC Glucose 174 H 06/06/22 06:07: POC Glucose 152 H 06/06/22 06:27: WBC 9.6, RBC 3.58 L, Hgb 9.7 L, Hct 31.5 L, MCV 88.0, MCH 27.1, MCHC 30.8 L, RDW Std Deviation 55.0 H, RDW Coeff of Fei 17.2 H, Plt Count 357, MPV 9.4, Immature Gran % (Auto) 0.900, Neut % (Auto) 70.7 H, Lymph % (Auto) 9.9 L, [place] % (Auto) 9.8, Eos % (Auto) 8.1 H, Baso % (Auto) 0.6, Absolute Neuts (auto) 6.8, Absolute Lymphs (auto) 0.95, Nucleated RBC % 0 06/06/22 06:27: Sodium 134 L, Potassium 4.0, Chloride 106, Carbon Dioxide 21.0, Anion Gap 7, BUN 23 H, Creatinine 0.90, Estim Creat Clear Calc 102.99, Est GFR (MDRD) Af Amer 114, Est GFR (MDRD) Non-Af 94, BUN/Creatinine Ratio 25.7 H, Glucose 156 H, Calcium 9.0, Magnesium 2.1, Total Bilirubin 0.40, AST 11 L, ALT 18, Alkaline Phosphatase 70, Total Protein 6.9, Albumin 2.5 L, Globulin 4.4 H, Albumin/Globulin Ratio 0.6 L, TSH 1.69 06/06/22 06:27: Phosphorus 3.5 06/06/22 11:35: POC Glucose 200 H Micro: Microbiology 06/05/22 01:16 Urine Catheter - Catheter Urine Culture - Preliminary GNR non obgyn hospitalist physician 06/05/22 00:45 Stool Stool Lactoferrin - Final 06/04/22 00:45 Stool C. difficile DNA Amplification - Final 06/04/22 00:45 Stool Enteric Bacteriology - Final 06/04/22 00:05 Nasal Secretion SARS-CoV-2 & FLU Antigen (Rapid) - Final Physical Exam Const alert, oriented x3, no apparent distress and well nourished Constitutional Narrative: Morbidly obese, middle-aged, white male sitting up in bed nursing at bedside, appears comfortable at this time, nontoxic General Appearance: cooperative HEENT normocephalic, head/scalp atraumatic, hearing grossly normal bilaterally and moist oral mucous membranes HEENT Narrative: Mallampati 3-4, no thrush Resp normal respiratory effort, no retractions, no use of accessory muscles and clear to auscultation bilaterally Auscultation: Negative for crackles, rhonchi or wheezes Cardio regular rate, regular rhythm, S1 normal heart sound, S2 normal heart sound, no murmurs, no rub, no gallops and no clicks GI GI Narrative: Mild diffuse tenderness with no point tenderness, bowel sounds are normal with no distention and abdomen is soft Extremity Extremity Narrative: Raise chronic bilateral lower extremity edema, no movement in bilateral lower extremities, plantar flexion contractures of both ankles, no cyanosis or clubbing Neuro oriented x3 Neuro Narrative: Bilateral lower extremity chronic paraplegia, no upper extremity deficits Speech: speech normal Assessment & Plan Assessment/Plan (1) Urinary tract infection: (2) Enteritis: (3) Sacral decubitus ulcer, stage IV: (4) Abnormal computed tomography angiography (CTA) of abdomen and pelvis: (5) Hypokalemia: (6) Hypomagnesemia: (7) Leukocytosis: (8) ION (acute kidney injury): PLAN: Plan Acute enteritis/colitis -Patient presented with abdominal pain/nausea/vomiting/diarrhea -CT of the abdomen pelvis showed features suggestive of acute infectious or inflammatory colitis -C. difficile and enteric panel are negative -Ova and parasites pending -Fecal lactoferrin was positive -Continue Zosyn -Diarrhea has resolved Acute urinary tract infection -Patient does have issues with chronic UTIs related to his paraplegia and in termittent cathing -Culture currently showing gram-negative none lactose obgyn hospitalist physician -Continue Zosyn -May need ID involvement depending on cultures results and sensitivities Acute hypokalemia -Resolved Acute hypomagnesemia -Resolved Abnormal CT of the abdomen pelvis -CT also suggested abnormality within the L1 vertebral vertebrae that was concerning -MRI recommended to the ED by spine surgery -MRI was not suggestive of any acute infectious abnormalities and indicated it was likely the result of previous fusion -No further follow-up needed at this time Chronic sacral decubitus -Wound care is following -Patient indicates he should be able to go home as long as we can get him enough supplies Debility -PT/OT following -Case management consultation DM-2 -Patient is on U500 insulin -Continue home insulin doses -A.m. fasting blood sugar 156 -Hold home Trulicity -We will continue home insulin doses with sliding scale -Accu-Cheks 3 times daily and at bedtime Hypertension -Continue Lasix/continue home amlodipine -Would recommend complete discontinuation of hydrochlorothiazide at discharge as patient has ongoing issues with electrolyte disturbances and is already on Lasix -Will hold this hospitalization -As needed labetalol available for systolic greater than 160 Hyperlipidemia -Continue home statin Paraplegia -Patient is at baseline ROX -Nocturnal CPAP with 4 L bleed -Patient has home unit and okay to use Morbid obesity -Complicates treatment, prognosis, outcomes -BMI is 51.9 -Recommend weight loss DVT prophylaxis -Lovenox -SCDs CODE STATUS -Full code as per discussion on admission the emergency department Charges/Coding Visit Charges Inpatient E&M: 41586 Subs Hosp L2
[2022-06-06 16:50] LABS: Bedside Glucose 125 mg/dL (74-106)
[2022-06-06 17:11] VITALS: BP 125/60; PULSE 90; RESP 18; TEMP 36.8; O2SAT 99
[2022-06-06] MEDS: LURASIDONE HCL 20 MG TABLET 60 MG PO (17:19)
--- NOTE | 2022-06-06 22:18 | CPS ---
Patient places self on home cpap unit
[2022-06-06] MEDS: Atorvastatin Calcium 20 MG Tablet PO (22:21)
[2022-06-06] MEDS: Doxazosin 1 MG Tablet PO (22:21)
[2022-06-06 22:30] VITALS: BP 124/60; PULSE 88; RESP 18; TEMP 36.9; O2SAT 99
[2022-06-07 03:30] VITALS: BP 126/50; PULSE 77; RESP 18; TEMP 36.6; O2SAT 99
[2022-06-07 05:49] LABS: Absolute Lymphocyte Count 1.35 X10^3/uL (0.83-4.51); Absolute Neutrophil Count 5.2 X10^3/uL (2.0-7.7); Basophil# 0.04 X10^3/uL; Basophil% 0.5 % (0-1); Eosinophil# 0.66 X10^3/uL; Eosinophils% 8.3 % (0-5); Hematocrit 28.5 % (40-54); Hemoglobin 8.7 g/dL (13.0-16.5); Lymphocyte # 1.35 X10^3/ul (0.83-4.51); Lymphocyte % 16.9 % (19-41); Mean Corp Hgb Conc 30.5 g/dL (32-36); Mean Corpuscular Volume 88.5 fL (80-94); Mean Platelet Vol. 9.4 fl (6.2-12.0); Monocyte# 0.64 X10^3/uL; NRBC Flagged by Analyzer 0.4 % (0-5); Neutrophil % 65.2 % (47-70); Platelet Count 345 K/mm3 (150-450); RBC Distribution Width CV 16.9 % (11.6-14.6); RBC Distribution Width SD 55.1 fl (35.1-43.9); Red Blood Count 3.22 M/mm3 (4.6-6.2)
[2022-06-07 06:22] LABS: Anion Gap 7 (5-15); BUN 33 mg/dL (7-18); BUN/Creat Ratio 31.7 RATIO (10-20); Calcium,Total 9.3 mg/dL (8.5-10.1); Chloride 107 mmol/L (98-107); Creatinine, Serum 1.04 mg/dL (0.70-1.30); EST Glomerular Filtration Rate 79 mL/min (>60); Est Glom Filt Rate - Afr Amer 96 mL/min (>60); Estimated Creatinine Clearance 89.12 ml/min; Glucose 113 mg/dL (74-106); Sodium Level 134 mmol/L (136-145)
[2022-06-07] MEDS: Acetaminophen 325 MG Tablet 650 MG PO ×2 (06:45→18:53)
[2022-06-07 08:02] VITALS: BP 114/62; PULSE 86; RESP 18; TEMP 36.9; O2SAT 95
[2022-06-07] MEDS: DAKIN'S SOL HALF STRENGTH (=0.25%) 1 APPLIC TOPICAL (08:19)
[2022-06-07 08:41] LABS: Bedside Glucose 162 mg/dL (74-106)
[2022-06-07] MEDS: Enoxaparin 40 MG/0.4 ML Syringe SC (08:46)
[2022-06-07] MEDS: Potassium Chloride Oral Tablet 20 MEQ PO (08:47)
[2022-06-07] MEDS: Multivitamins,Therapeutic Tablet 1 TABLET PO (08:47)
[2022-06-07] MEDS: Furosemide 40 MG Tablet PO ×2 (08:47→23:02)
[2022-06-07] MEDS: Docusate Sodium 100 MG/10 ML UDC 50 MG PO (08:47)
[2022-06-07] MEDS: Juven (unflavored) Packet 1 PACKET PO ×2 (08:47→18:01)
[2022-06-07] MEDS: amLODIPine 10 MG Tablet PO (08:48)
[2022-06-07] MEDS: Insulin Lispro 100 UNIT/ML INSULN.PEN SC ×3 (08:48→18:00)
[2022-06-07] MEDS: Insulin U-500 UNITS/ML PEN 60 UNITS SC ×3 (08:48→18:00)
[2022-06-07] MEDS: Gabapentin 400 MG Capsule PO ×4 (08:52→23:02)
--- NOTE | 2022-06-07 10:10 | CASEMGMT ---
Addendum entered by Adriana Turner 06/07/22 16:07: Pt updated on N declining referral. Addendum entered by Adriana Turner 06/07/22 16:01: Received tc from [facility] who states they are unable to accept pt. States they have been referred pt twice and the last time was a non admit as the pt mother physically could not care for pt and pt required more care than they could provide. Addendum entered by Adriana Turner 06/07/22 15:48: Pt will be seeing the [facility] on Jun.15. Addendum entered by Adriana Turner 06/07/22 15:34: TC to [facility] to verify she received the wound order sheet, she confirmed she did. DEENA PRASAD into pt room, he is aware that [facility] is reviewing his referral and there may not be an answer until tomorrow. Pt is aware that RN OSMAR will notify him of acceptance. Pt is aware that he should be expecting a call from [facility] or [facility] that needs to be answered or supplies will not be delivered. Pt verbalizes understanding. Pt wishes to return home. Plan: DC today. Addendum entered by Adriana Turner 06/07/22 15:03: [facility] and [facility] are unable to take pt. Received tc back from [facility] who states they did not receive referral. They will look at it and notify DEENA PRASAD. Pt is aware of status of [facility]. Pt asks if he can go home without HHC. He states he will be switching to [facility] in Jun and Jul and it may be more likely to get HHC then. Discussed with hospitalistlalo to dc home without HHC set up. Pt agreeable to any medical company for his supplies. He states that [facility] was ordering for him but they are no longer and cannot continue with his care as they are taking patient's only within their system. TC to Barbara at [employer], she faxed supply order form and states once received this can take 1-2 days to be set up. Completed form and faxed signed rx back to [facility] with confirmation received. 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 Addendum entered by Adriana Turner 06/07/22 14:40: Referrals sent to [facility], [facility], [facility], [facility] and [facility]. Discussed pt situation with Trevor HERNÁNDEZ. DEENA PRASAD back into pt room, pt states he would entertain the idea of going back to [facility] if he does not have a copay. Updated [facility]. Pt states his dtr does not want him to go there and he doesn't get good care there. Addendum entered by Adriana Turner 06/07/22 11:14: TC back to pt mother, she states she has not been able to reach pt. DEENA PRASAD in to pt room, pt mother put on speakerphone. She tells pt she doesn't know what to do. Pt states she will need to pay $700 [facility] and she states she cannot do this. He states then she will lose her house because they will take his check. Pt mother states that pt will have to come home. Attempted to verify with [facility] if this is the case regarding the coverage for SNF. TC to [facility] office and liaison Anmol to verify if they are able to accept pt, left vm. Will await returned calls. Original Note: TC to pt mother. She states she is sick and cannot walk. She states pt dtr is home and sick as well. She kept saying I don't know what to do, I know he wants to come home for Aditya. Discussed with her that if she is sick and unable to care for patient, other arrangements can be made. She states after much time that she wants to speak with pt one more time. She asks this DEENA PRASAD to call her back in a half hour.
--- NOTE | 2022-06-07 12:18 | DCINST_ITS ---
Discharge Instructions Diet Discharge Diet: Low fat / Low cholesterol and Carb Control Diet Activity Discharge Activity: Return to Normal Activity Dressing / Incision Call your doctor if your incision/area has: Increased Pain/ Swelling, Increased Redness and Foul Smelling Discharge Call your doctor if you observe: Fever of 101 or Higher, Shortness of breath, Dizziness, Fainting spells, Swelling in the ankles, Chest pain and Increased palpitations (irregular heartbeat) Follow Up Care Test Results: Test results from this visit will be discussed in further detail at your follow- up appointment, if applicable. Discharge Plan Admission Admit Date/Time: 06/05/22 12:29 Attending Provider: Richard Miller Primary Care Provider: Jimmie Rand Consulting Providers: Samantha Bradford Discharge Orders/Prescriptions Prescriptions: New ciprofloxacin HCl 500 mg tablet 500 mg PO BID Qty: 10 0RF Continued acetaminophen 325 mg capsule 650 mg PO Q4H PRN (Reason: pain) Rx Instructions: do not exceed 4gm in 24 hrs amlodipine 10 mg tablet 10 mg PO DAILY multivitamin Tablet 1 tab PO DAILY gabapentin 400 mg capsule 400 mg PO 4X/DAY atorvastatin 20 mg tablet 20 mg PO QHS Latuda 60 mg Tablet 60 mg PO DINNER Rx Instructions: must administer with food (at least 350 calories) Humulin R U-500 (Conc) Kwikpen 500 unit/mL (3 mL) Insulin Pen 60 unit subcut TIDCM Qty: 0 0RF Artificial Tears(se-xywu-evet) 1-0.2-0.2 % Drops 1 drp EACH EYE Q1H PRN (Reason: DRY EYES) Qty: 0 0RF furosemide 40 mg tablet 40 mg PO BID Label Comments: TAKE 1 TABLET BY MOUTH TWICE DAILY docusate sodium 50 mg Capsule 50 mg PO DAILY potassium chloride 20 mEq tablet,ER particles/crystals 20 meq PO BID hydrochlorothiazide 25 mg tablet 25 mg PO DAILY Label Comments: TAKE 1 TABLET BY MOUTH EVERY DAY lisinopril 40 mg tablet 40 mg PO DAILY doxazosin 1 mg tablet 1 mg PO QHS Rx Instructions: TAKE 1 TABLET BY MOUTH AT BEDTIME FOR BENIGN PROSTATIC HYPERPLASIA Trulicity 4.5 mg/0.5 mL pen injector 4.5 mg subcut FR (DME) compr.stocking,thigh,reg,large Misc See Dose Instructions .ROUTE .MEDSUPPLY Qty: 6 1RF Dose Instruction: As directed Rx Instructions: use daily for venous insufficiency 20-30 mmhg (DME) compress.stocking,knee,reg,lrg Misc See Rx Instructions .ROUTE .MEDSUPPLY Qty: 6 1RF Rx Instructions: Use Daily for venous insufficiency 20-30mmHg (DME) cpap mask See Rx Instructions .Route .MEDSUPPLY Qty: 1 0RF Rx Instructions: Use nightly (DME) Garcia Catheter 16 Fr misc See Rx Instructions .Route Qty: 1 0RF Rx Instructions: change every 4 weeks Referrals / Follow Up: Jimmie Rand MD [Primary Care Provider] - Within 1 Week Disposition Disposition (needs filled in before D/C Order can be placed): Home, Self Care
[2022-06-07 12:26] LABS: Bedside Glucose 180 mg/dL (74-106)
[2022-06-07 13:08] VITALS: BP 115/50
[2022-06-07 15:38] VITALS: BP 114/52; PULSE 96; RESP 18; TEMP 37; O2SAT 95
--- NOTE | 2022-06-07 16:30 | DS.PCM_ITS ---
Providers Date of Admission: 06/05/22 Primary Care Physician: Dr. Jimmie Rand MD Consultations 06/05/22 15:25 Consult: Onc/Wound/operating room surgical technician Routine Comment: Reason for Consult:: sacral decubitus Reason For Visit: diarrhea/debility Diagnosis Discharge Diagnosis (1) Urinary tract infection: Status: Acute Code(s): N39.0 - Urinary tract infection, site not specified (2) Enteritis: Status: Acute Code(s): K52.9 - Noninfective gastroenteritis and colitis, unspecified (3) Sacral decubitus ulcer, stage IV: Status: Acute Code(s): L89.154 - Pressure ulcer of sacral region, stage 4 (4) Abnormal computed tomography angiography (CTA) of abdomen and pelvis: Status: Acute Code(s): R93.5 - Abnormal findings on diagnostic imaging of other abdominal regions, including retroperitoneum (5) Hypokalemia: Status: Acute Code(s): E87.6 - Hypokalemia (6) Hypomagnesemia: Status: Acute Code(s): E83.42 - Hypomagnesemia (7) Leukocytosis: Status: Acute Code(s): D72.829 - Elevated white blood cell count, unspecified (8) ION (acute kidney injury): Status: Acute Code(s): N17.9 - Acute kidney failure, unspecified Medications at Discharge Home Medications compr.stocking,thigh,reg,large #6 ea 11/11/20 compress.stocking,knee,reg,lrg #6 ea 11/12/20 cpap mask #1 ea 07/14/21 atorvastatin 20 mg tablet 20 mg PO QHS cholesterol lowering 08/29/21 acetaminophen 325 mg capsule 650 mg PO Q4H PRN pain 02/28/22 amlodipine 10 mg tablet 10 mg PO DAILY heart 02/28/22 gabapentin 400 mg capsule 400 mg PO 4X/DAY nerve pain 02/28/22 multivitamin 1 tab PO DAILY supplement 02/28/22 catheter 16 Fr (Garcia Catheter) #1 ea 04/03/22 lurasidone 60 mg tablet (Latuda) 60 mg PO DINNER depression 04/12/22 insulin regular hum U-500 conc 500 unit/mL(3 mL) subcut pen (Humulin R U-500 (Conc) Insulin Kwikpen) 60 unit (0.12 mL) subcut TIDCM #0 mL 04/14/22 peg [id number] 1 %-0.2 %-0.2 % eye drops (Artificial Tears ([id number])) 1 drp EACH EYE Q1H PRN DRY EYES #0 mL 04/14/22 docusate sodium 50 mg capsule 50 mg PO DAILY CONSTIPATION 06/05/22 doxazosin 1 mg tablet 1 mg PO QHS PROSTATE 06/05/22 dulaglutide 4.5 mg/0.5 mL subcutaneous pen injector (Trulicity) 4.5 mg subcut FR blood sugar 06/05/22 furosemide 40 mg tablet 40 mg PO BID ADEMA 06/05/22 hydrochlorothiazide 25 mg tablet 25 mg PO DAILY BP 06/05/22 lisinopril 40 mg tablet 40 mg PO DAILY BP 06/05/22 potassium chloride 20 mEq tablet,extended release(part/cryst) 20 meq PO BID SUPPLEMENT 06/05/22 ciprofloxacin HCl 500 mg tablet 500 mg PO BID #10 tabs 06/07/22 Hospital Course Operations None Procedures None Summary of Care Provided Minutes Spent on Discharge: 39 Hospital Course: Per HPI: SERENITY MACHADO, is a 52 M who presented emergency department [facility] on 06/05/2022 complaining of nausea vomiting and diarrhea.? Patient indicates that his symptoms started approximately on Sunday of last week.? He initially had some nausea and vomiting but that has since subsided.? He has had ongoing diarrhea so severe that his chronic sacral decubitus is worsening and they have gone through all of his dressings in about 4 days.? He was [facility] facility on and is concerned he may need to go back.? He states that if he can get the dressing changes he needs and is not having such severe diarrhea that he should be able to go home.? He has a chronic catheter now.? He is tolerating p.o. however its been minimal and he feels like he is somewhat dehydrated.? He denies any fever or chills.? And has had no other significant symptoms.? He he does have history of frequent urinary tract infections related to neurogenic bladder from paraplegia and has had a chronic Garcia in since his last hospitalization at which time he was discharged on 04/14/2022. Vital signs upon presentation emergency department demonstrated temperature of 98.5, heart rate 101, respiratory rate 20, initial blood pressure was 80/43 with repeat at 99/54 after IV fluids, and a pulse ox of 97% on room air.? CBC showed a mild leukocytosis at 12.4 with no left shift present and a monocytosis p resent, chronic stable anemia with a hemoglobin of 10 and normal platelets.? His chemistry panel showed normal sodium but hypokalemia with a potassium of 2.6 and a BUN of 28 and a serum creatinine of 1.43.? His baseline serum creatinine is between 0.7 and 0.9.? Liver function was unremarkable.? With the diarrhea and enteric panel and C. difficile were obtained and were negative.? A CT of the abdomen pelvis was obtained and showed findings suggestive of sequela of acute infectious or inflammatory colitis with also some infectious versus inflammatory enteritis.? They also noted some abnormality at the T1 vertebral body.? ER physician discussed the case with spine surgery and recommended an MRI be performed.? MRI was performed and showed a large amount of artifact from previous fusion, chronic mild compression fracture of T12 and L1 with mild signal heterogenicity in the L1 vertebral body that was likely sequela of old trauma without suspicious confluent T1 hypointensity suggestive of mass or infection.? His UA was also suggestive of infection.? Given these findings it was felt that he was stable for admission here and request for admission was made. The emergency department he was started on IV antibiotics and his potassium and magnesium were replaced. Hospital Course: 1. Acute enteritis/colitis/chronic sacral decubitus ulcer?52-year-old male presents to the hospital because of some abdominal pain and diarrhea. This is all resolved however when he presented to the ER CT scan of his abdomen pelvis was performed which demonstrated possible colitis either infectious or inflammatory. There is also a signal in his spine that was concerning for a pos sible infectious origin so an MRI was done which was negative and it was thought to be due to previous spine surgery from an accident. He stated yesterday that he wanted to go home because now that he felt better he just needed more supplies for his wounds. Work-up for his diarrhea has been negative from an infectious etiology. He did have a dirty urine on his admission which is not uncommon given his chronic Garcia placement and a history of intermittent cathing he is not symptomatic from a urinary standpoint and his urine culture was not significant as it was under 50,000 CFU's, however it is growing Pseudomonas that is intermittently sensitive to Cipro. In the full sensitivities have not been done yet. I discussed with him the possibility for discharge today and he expressed understanding of the risk and benefits of going home and he wants to go home today since we can get him the supplies he needs for his dressing changes. He is also discussed with him and will be able to get home health care out right away and he felt that that was okay since his mother who is 85 and in a wheelchair as well as his 16-year-old daughter are able to help him and do his dressing changes at home. I do recommend that he follow-up with his PCP as an outpatient and that if he does develop a fever or any worsening signs of an infection either in his wounds, or worsening diarrhea or issues with his Garcia that he should present back to the hospital. 2. Type 2 diabetes, hypertension, hyperlipidemia, paraplegia, ROX, morbid obesity are all chronic medical conditions which complicate his care. His home medications were continued where appropriate Physical Exam Narrative General: Alert, Oriented x3, Cooperative, No apparent distress HEENT: Atraumatic, PERRLA, EOMI, Normocephalic Oral: Moist Mucosa Neck: Supple, No JVD Lungs: Clear to auscultation, Normal air movement, No rhonchi, No wheeze, No rales Cardiovascular: Regular rate, Regular Rhythm, Normal S1, Normal S2, No murmurs Abdomen: Soft, Non Tender, Non-Distended, No Hepato-splenomegaly Extremities: edema, Capillary Refill Less than 3 Seconds Skin: chronic decubitus ulcer Musculoskeletal: No Tenderness to Palpation of Joints or Extremities Neurological: Cranial nerves II-XII grossly intact, Motor Exam 5/5 strength throughout, Sensory exam intact to light touch and pain Psych/Mental Status: Normal Affect, Appropriate Weight / BMI Weight Weight: 382 lb 8.032 oz Body Mass Index (BMI) 51.8 ABG / Lab / Microbiology Data Result Diagrams: 06/07/22 05:20 06/07/22 05:20 Laboratory: Laboratory Results - last 24 hr 06/06/22 16:27: POC Glucose 125 H 06/07/22 05:20: WBC 8.0, RBC 3.22 L, Hgb 8.7 L, Hct 28.5 L, MCV 88.5, MCH 27.0, MCHC 30.5 L, RDW Std Deviation 55.1 H, RDW Coeff of Fei 16.9 H, Plt Count 345, MPV 9.4, Immature Gran % (Auto) 1.100 H, Neut % (Auto) 65.2, Lymph % (Auto) 16.9 L, [place] % (Auto) 8.0, Eos % (Auto) 8.3 H, Baso % (Auto) 0.5, Absolute Neuts (auto) 5.2, Absolute Lymphs (auto) 1.35, Nucleated RBC % 0.4 06/07/22 05:20: Sodium 134 L, Potassium 4.0, Chloride 107, Carbon Dioxide 20.0 L , Anion Gap 7, BUN 33 H, Creatinine 1.04, Estim Creat Clear Calc 89.12, Est GFR (MDRD) Af Amer 96, Est GFR (MDRD) Non-Af 79, BUN/Creatinine Ratio 31.7 H, Glucose 113 H, Calcium 9.3 06/07/22 08:20: POC Glucose 162 H 06/07/22 12:02: POC Glucose 180 H Microbiology: Microbiology 06/05/22 01:16 Urine Catheter - Catheter Urine Culture - Preliminary Pseudomonas aeroginosa 06/05/22 00:45 Stool Stool Lactoferrin - Final 06/04/22 00:45 Stool C. difficile DNA Amplification - Final 06/04/22 00:45 Stool Enteric Bacteriology - Final 06/04/22 00:05 Nasal Secretion SARS-CoV-2 & FLU Antigen (Rapid) - Final D/C Instructions Discharge Diet: Low fat / Low cholesterol and Carb Control Diet Call your doctor if your incision/area has: Increased Pain/ Swelling, Increased Redness and Foul Smelling Discharge Call your doctor if you observe: Fever of 101 or Higher, Shortness of breath, Dizziness, Fainting spells, Swelling in the ankles, Chest pain and Increased palpitations (irregular heartbeat) Meaningful Use Info Meaningful Use Diagnoses (Choose all that apply): None applicable Discharge Plan Admission Admit Date/Time: 06/05/22 12:29 Attending Provider: Richard Miller Primary Care Provider: Jimmie Rand Consulting Providers: Samantha Bradford Discharge Orders/Prescriptions Prescriptions: New ciprofloxacin HCl 500 mg tablet 500 mg PO BID Qty: 10 0RF Continued acetaminophen 325 mg capsule 650 mg PO Q4H PRN (Reason: pain) Rx Instructions: do not exceed 4gm in 24 hrs amlodipine 10 mg tablet 10 mg PO DAILY multivitamin Tablet 1 tab PO DAILY gabapentin 400 mg capsule 400 mg PO 4X/DAY atorvastatin 20 mg tablet 20 mg PO QHS Latuda 60 mg Tablet 60 mg PO DINNER Rx Instructions: must administer with food (at least 350 calories) Humulin R U-500 (Conc) Kwikpen 500 unit/mL (3 mL) Insulin Pen 60 unit subcut TIDCM Qty: 0 0RF Artificial Tears(pe-djxn-bicj) 1-0.2-0.2 % Drops 1 drp EACH EYE Q1H PRN (Reason: DRY EYES) Qty: 0 0RF furosemide 40 mg tablet 40 mg PO BID Label Comments: TAKE 1 TABLET BY MOUTH TWICE DAILY docusate sodium 50 mg Capsule 50 mg PO DAILY potassium chloride 20 mEq tablet,ER particles/crystals 20 meq PO BID hydrochlorothiazide 25 mg tablet 25 mg PO DAILY Label Comments: TAKE 1 TABLET BY MOUTH EVERY DAY lisinopril 40 mg tablet 40 mg PO DAILY doxazosin 1 mg tablet 1 mg PO QHS Rx Instructions: TAKE 1 TABLET BY MOUTH AT BEDTIME FOR BENIGN PROSTATIC HYPERPLASIA Trulicity 4.5 mg/0.5 mL pen injector 4.5 mg subcut FR (DME) compr.stocking,thigh,reg,large Misc See Dose Instructions .ROUTE .MEDSUPPLY Qty: 6 1RF Dose Instruction: As directed Rx Instructions: use daily for venous insufficiency 20-30 mmhg (DME) compress.stocking,knee,reg,lrg Misc See Rx Instructions .ROUTE .MEDSUPPLY Qty: 6 1RF Rx Instructions: Use Daily for venous insufficiency 20-30mmHg (DME) cpap mask See Rx Instructions .Route .MEDSUPPLY Qty: 1 0RF Rx Instructions: Use nightly (DME) Garcia Catheter 16 Fr misc See Rx Instructions .Route Qty: 1 0RF Rx Instructions: change every 4 weeks Referrals / Follow Up: Jimmie Rand MD [Primary Care Provider] - Within 1 Week Disposition Disposition (needs filled in before D/C Order can be placed): Home, Self Care Charges/Coding Visit Charges Inpatient E&M: 95151 Disch Hosp
[2022-06-07 18:15] LABS: Bedside Glucose 154 mg/dL (74-106)
[2022-06-07] MEDS: LURASIDONE HCL 20 MG TABLET 60 MG PO (18:24)
[2022-06-08] VITALS: BP 105/62; PULSE 90; RESP 18; TEMP 36.9; O2SAT 96
[2022-06-08 02:41] VITALS: BP 105/62; PULSE 90; RESP 18; TEMP 36.9; O2SAT 96
--- NOTE | 2022-06-08 13:45 | CASEMGMT ---
Social Work Collaboration with Adriana SHAFFER CM regarding this patient and complex social/medical needs. Patient has been discharged home. Difficulty finding a [facility] agency for this patient, and concern is present about patient's elderly mother and minor daughter being tasked as the primary caregivers to the patient. In an effort to see if more services can be established for this family, and help set appropriate boundaries for respective ages this short story writer called [employer] at [facility] and Eusebia at [facility]. Reports made regarding respective parties in the home who may benefit from protective services involvement. Brief patient history as it relates to potential dependency concerns for both the minor and elderly family members in the home. Patient's daughter Bobo is reported as 16 and patient's mother Rafaela as 84. APS plans to follow up with Rafaela. [facility] plans to look at referral. Undetermined whether case will be screened in for investigation at this time. -DELILAH Lopes, WAREHOUSE INVENTORY CLERK
[2022-06-09 10:46] LABS: Calprotectin, Stool 42 ug/g (0-120)
== END 2022-06-08 03:00 | disposition home or self-care (01) | DRG 249 ==
LOC: ED 06-05 12:42 → MS3 06-05 14:21
PROVIDERS: Student in an Organized Health Care Education/Training Program; Admitting Provider Internal Medicine; Emergency Provider Emergency Medicine; PCP Internal Medicine; Visit Provider Family Medicine
DX: K52.9 Noninfective gastroenteritis and colitis, unspecified (principal); L89.154 Pressure ulcer of sacral region, stage 4; N17.9 Acute kidney failure, unspecified; G82.20 Paraplegia, unspecified; Z68.43 Body mass index [BMI] 50.0-59.9, adult; E11.42 Type 2 diabetes mellitus with diabetic polyneuropathy; E78.5 Hyperlipidemia, unspecified; B96.5 Pseudomonas (aeruginosa) (mallei) (pseudomallei) as the cause of diseases classified elsewhere; E66.01 Morbid (severe) obesity due to excess calories; Z79.4 Long term (current) use of insulin; E86.0 Dehydration; E87.6 Hypokalemia; I10 Essential (primary) hypertension; G47.33 Obstructive sleep apnea (adult) (pediatric); E83.42 Hypomagnesemia; Z87.891 Personal history of nicotine dependence; R93.5 Abnormal findings on diagnostic imaging of other abdominal regions, including retroperitoneum; Z87.440 Personal history of urinary (tract) infections
CPT/HCPCS: 36415; 72148; 74177; 80048; 80053; 81001; 82962; 83630; 83690; 83735; 83993; 84100; 84443; 85025; 87077; 87086; 87088; 87177; 87184; 87186; 87209; 87428; 87493; 87506; 97162; 97166; 97802; 99251; 99285; J7030; J7050; Q9967; A4216; G0463; J2405

== ENCOUNTER 2022-06-19 15:43 | Inpatient (IN) | payer MEDICAID, SELFPAY ==
[2022-06-19] VITALS (7 sets, daily range): BP systolic 86–115; BP diastolic 45–101; PULSE 87–105; RESP 15–17; TEMP 36.9–37.2; O2SAT 95–98; BMI 53.8; BMI 53.6
--- NOTE | 2022-06-19 16:10 | EKG12_ITS ---
Test Reason : Blood Pressure : / mmHG Vent. Rate : 099 BPM Atrial Rate : 099 BPM P-R Int : 142 ms QRS Dur : 076 ms QT Int : 330 ms P-R-T Axes : 036 011 022 degrees QTc Int : 423 ms Sinus rhythm Low voltage QRS Borderline ECG Confirmed by CORNELIUS EL, TRISTIAN ([id number]), dictionary editor JAHAIRA RAJAN ([id number]) on 06/21/2022 9:32:12 AM Referred By: Confirmed By:TRISTIAN SHIELDS MD
--- NOTE | 2022-06-19 16:13 | EX.ED.DYSGE1 ---
HPI History of Present Illness Chief Complaint: General Illness Detail of Chief Complaint: Nausea, vomiting, diarrhea Informant: patient Onset/Context/Timing Onset: Today Narrative Narrative: Patient returns to the emergency room secondary to recurrent gastric symptoms. He was admitted here in late May with vomiting and diarrhea. He was found to have infectious colitis and UTI. He states he took Cipro at home. Today his symptoms recurred. He has not noted a fever. [facility] Medical History Acute respiratory failure, unspecified whether with hypoxia or hypercapnia Alcohol abuse Anemia Anxiety and depression Bacteremia due to Enterococcus Avelar's palsy Blister (nonthermal), right foot, initial encounter Chronic ulcer of right foot with fat layer exposed CPAP (continuous positive airway pressure) dependence Decubitus ulcer of sacral region, stage 4 Decubitus ulcer, buttock Depression Diabetes DVT (deep venous thrombosis) Edema of both lower extremities Essential (primary) hypertension Former smoker Headache Hemoglobin A1c 8.0% or greater History of foot ulcer History of stress test history of tooth removal Hyperlipidemia Incontinence 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 Insomnia Left shoulder pain [employer] (current) use of anticoagulants [facility] (current) 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 Morbid (severe) obesity due to excess calories Neuromuscular dysfunction of bladder, unspecified Neuropathic pain Obesities, morbid Obstructive sleep apnea On home oxygen therapy Osteoporosis Other seasonal allergic rhinitis Paraplegia Pressure sore of left ischium, unstageable Pressure ulcer Pressure ulcer of left buttock, unstageable Pressure ulcer of right buttock, unstageable Pressure ulcer of sacral region, unstageable Primary osteoarthritis, left shoulder Sacral ulcer Sacral wound Self-catheterizes urinary bladder Sepsis Skin necrosis Skin ulcer of left hip Skin ulcer of right hip Sleep apnea Stage II pressure ulcer Stage II pressure ulcer of buttock Type 2 diabetes mellitus with diabetic polyneuropathy Wound infection Home Medications compr.stocking,thigh,reg,large #6 ea 11/11/20 [Rx Last Taken Unknown] compress.stocking,knee,reg,lrg #6 ea 11/12/20 [Rx Last Taken Unknown] cpap mask #1 ea 07/14/21 [Rx Last Taken Unknown] atorvastatin 20 mg tablet 20 mg PO QHS cholesterol lowering 08/29/21 [History Last Taken 06/04/22] acetaminophen 325 mg capsule 650 mg PO Q4H PRN pain 02/28/22 [History Last Taken 06/04/22] amlodipine 10 mg tablet 10 mg PO DAILY heart 02/28/22 [History Last Taken 06/04/22] gabapentin 400 mg capsule 400 mg PO 4X/DAY nerve pain 02/28/22 [History Last Taken 06/04/22] multivitamin 1 tab PO DAILY supplement 02/28/22 [History Last Taken 06/04/22] catheter 16 Fr (Garcia Catheter) #1 ea 04/03/22 [Rx Last Taken Unknown] lurasidone 60 mg tablet (Latuda) 60 mg PO DINNER depression 04/12/22 [History Last Taken 06/04/22] insulin regular hum U-500 conc 500 unit/mL(3 mL) subcut pen (Humulin R U-500 (Conc) Insulin Kwikpen) 60 unit (0.12 mL) subcut TIDCM #0 mL 04/14/22 [Rx Last Taken 06/04/22] peg [id number] 1 %-0.2 %-0.2 % eye drops (Artificial Tears ([id number])) 1 drp EACH EYE Q1H PRN DRY EYES #0 mL 04/14/22 [Rx Last Taken 06/04/22] docusate sodium 50 mg capsule 50 mg PO DAILY CONSTIPATION 06/05/22 [History Last Taken 05/30/22] doxazosin 1 mg tablet 1 mg PO QHS PROSTATE 06/05/22 [History Last Taken 06/04/22] dulaglutide 4.5 mg/0.5 mL subcutaneous pen injector (Trulicity) 4.5 mg subcut FR blood sugar 06/05/22 [History Last Taken 06/02/22] furosemide 40 mg tablet 40 mg PO BID ADEMA 06/05/22 [History Last Taken 06/04/22] hydrochlorothiazide 25 mg tablet 25 mg PO DAILY BP 06/05/22 [History Last Taken 06/04/22] potassium chloride 20 mEq tablet,extended release(part/cryst) 20 meq PO BID SUPPLEMENT 06/05/22 [History Last Taken 06/04/22] ciprofloxacin HCl 500 mg tablet 500 mg PO BID #10 tabs 06/07/22 [Rx Last Taken Unknown] lisinopril 40 mg tablet 40 mg PO DAILY BP #90 tabs 06/08/22 [Rx Last Taken Unknown] Allergy/AdvReac Type Severity Reaction Status Date / Time metformin AdvReac Unknown Diarrhea Verified 06/05/22 14:05 Family History Father Heart disease Myocardial infarction, Onset Age: 64 Hyperlipemia Mother Heart disease Hypertension Hyperlipemia Uncle Heart disease Grandfather Diabetes Grandmother Diabetes Surgical History History of back surgery Social History Smoking Status: Former smoker alcohol intake: former substance use type: does not use what type of physical activity do you participate in: none ROS ROS ED Constitutional Constitutional ED: Denies chills or fever(s) Eyes Eyes: Denies change in vision or discharge from eye(s) ENT ENT ED: Denies discharge from eye(s), rhinorrhea or sore throat Cardiovascular Cardiovascular: Denies chest pain or palpitations Respiratory/Chest Respiratory/Chest: Denies cough or dyspnea Gastrointestinal Gastrointestinal: Reports diarrhea, nausea and vomiting; Denies abdominal pain Genitourinary Genitourinary ED: Reports other Details: Indwelling Garcia catheter Musculoskeletal Musculoskeletal: Denies back pain or extremity pain Integumentary Denies Abrasions or rash Neurologic Neurologic: Denies headache(s) Allergic/Immunologic Allergic/Immunologic ED: Denies lip swelling or urticaria EXAM Physical Exam Const Vital Signs: 06/19/22 15:44 06/19/22 16:50 06/19/22 16:50 Temperature 98.9 F 99.0 F Temperature Source Temporal Temporal Pulse Rate 105 H 99 Respiratory Rate 17 15 Respiratory Effort Normal Respiratory Pattern Normal Blood Pressure 106/56 L 86/64 L Blood Pressure Mean 72 71 Pulse Ox 98 98 Oxygen Delivery Method Room Air Room Air 06/19/22 17:47 Temperature Temperature Source Pulse Rate 96 Respiratory Rate Respiratory Effort Respiratory Pattern Blood Pressure 96/53 L Blood Pressure Mean 67 Pulse Ox 98 Oxygen Delivery Method Room Air Positive obese Nutritional Appearance: obese HEENT Reports dry mucous membranes Mouth ED: Yes dry mucous membranes Mouth: dry mucous membranes Eyes PERRL and EOMs intact bilaterally Chest Wall inspection of chest normal and palpation of chest normal Resp normal respiratory effort and clear to auscultation bilaterally GI non-tender Palpation: soft Extremity Extremity Narrative: Chronic paraplegia Neuro oriented x3 Psych mental status grossly normal MDM MDM MDM Narrative Medical decision making narrative: Patient placed on awake overnight monitor and IV fluids initiated. Patient given Zofran for nausea. Lab work obtained along with urinalysis. Stool studies ordered. I reviewed his recent work-up including his urine culture results. At that time he had Pseudomonas aeruginosa. Lab Data Attestation: I reviewed the patient's lab results. Labs: Laboratory Results - last 24 hr 06/19/22 06/19/22 06/19/22 16:40 16:40 16:40 WBC 10.2 RBC 3.65 L Hgb 9.7 L Hct 32.9 L MCV 90.1 MCH 26.6 L MCHC 29.5 L RDW Std Deviation 55.4 H RDW Coeff of Fei 16.6 H Plt Count 397 MPV 9.7 Immature Gran % (Auto) 2.000 H Neut % (Auto) 78.6 H Lymph % (Auto) 10.9 L Quay % (Auto) 5.6 Eos % (Auto) 2.5 Baso % (Auto) 0.4 Absolute Neuts (auto) 8.0 H Absolute Lymphs (auto) 1.11 Nucleated RBC % 0 Sodium 138 Potassium 5.8 H Chloride 110 H Carbon Dioxide 20.0 L Anion Gap 8 BUN 67 H Creatinine 2.18 H Estim Creat Clear Calc 42.52 Est GFR (MDRD) Af Amer 41 L Est GFR (MDRD) Non-Af 34 L BUN/Creatinine Ratio 30.7 H Glucose 136 H Lactic Acid 2.0 Calcium 10.2 H Total Bilirubin 0.20 Direct Bilirubin 0.09 AST 24 ALT 71 H Alkaline Phosphatase 141 H Total Protein 7.7 Albumin 2.5 L Globulin 5.2 H Urine Color Urine Clarity Urine pH Ur Specific Divide Urine Protein Urine Glucose (UA) Urine Ketones Urine Occult Blood Urine Nitrite Urine Bilirubin Urine Urobilinogen Ur Leukocyte Esterase Urine RBC Urine WBC Ur Squamous Epith Cells Calcium Oxalate Crystal Urine Bacteria Hyaline Casts Urine Mucus Urine Yeast 06/19/22 16:40 WBC RBC Hgb Hct MCV MCH MCHC RDW Std Deviation RDW Coeff of Fei Plt Count MPV Immature Gran % (Auto) Neut % (Auto) Lymph % (Auto) Quay % (Auto) Eos % (Auto) Baso % (Auto) Absolute Neuts (auto) Absolute Lymphs (auto) Nucleated RBC % Sodium Potassium Chloride Carbon Dioxide Anion Gap BUN Creatinine Estim Creat Clear Calc Est GFR (MDRD) Af Amer Est GFR (MDRD) Non-Af BUN/Creatinine Ratio Glucose Lactic Acid Calcium Total Bilirubin Direct Bilirubin AST ALT Alkaline Phosphatase Total Protein Albumin Globulin Urine Color Nenka Urine Clarity Sl. Cloudy Urine pH 5.0 Ur Specific Divide 1.020 Urine Protein 30 H Urine Glucose (UA) Normal Urine Ketones 5 H Urine Occult Blood 50 H Urine Nitrite Negative Urine Bilirubin 6 H Urine Urobilinogen 1 H Ur Leukocyte Esterase 500 H Urine RBC 0-5 SEEN Urine WBC 10-25 SEEN Ur Squamous Epith Cells 0 SEEN Calcium Oxalate Crystal RARE Urine Bacteria 2+ Hyaline Casts 0-5 SEEN Urine Mucus 0 SEEN Urine Yeast RARE EKG Initial EKG: Attestation: I personally reviewed and interpreted this EKG as follows: Interpretation: Sinus Rhythm (Sinus at 99 with no acute ischemia.) Treatment and Re-Evaluation Narrative: CBC reveals white count normal at 10.2. Hemoglobin is 9.7, consistent with prior values. Chemistry studies reveal potassium of 5.8. Bicarb is 20. BUN is 67 and creatinine is 2.18. Appears his baseline creatinine is around 1.0. Lactic acid is minimally elevated at 2.0. Urinalysis reveals 10-25 white cells with 2+ bacteria. Patient has been given IV fluids. Blood pressure is currently 96/53. He tells me his baseline blood pressure is in the 80s systolic. He was given a dose of meropenem as this is appropriate treatment given his last urine culture. Patient be discussed with hospitalist regarding admission. Discharge Plan Triage Chief Complaint: General Illness ED Provider: Rula Nguyen Dx/Rx/DC Orders Clinical Impression: UTI (urinary tract infection), Nausea, vomiting, and diarrhea, Acute kidney injury Prescriptions: No Action acetaminophen 325 mg capsule 650 mg PO Q4H PRN (Reason: pain) Rx Instructions: do not exceed 4gm in 24 hrs amlodipine 10 mg tablet 10 mg PO DAILY multivitamin Tablet 1 tab PO DAILY gabapentin 400 mg capsule 400 mg PO 4X/DAY atorvastatin 20 mg tablet 20 mg PO QHS Latuda 60 mg Tablet 60 mg PO DINNER Rx Instructions: must administer with food (at least 350 calories) Humulin R U-500 (Conc) Kwikpen 500 unit/mL (3 mL) Insulin Pen 60 unit subcut TIDCM Qty: 0 0RF Artificial Tears([id number]) 1-0.2-0.2 % Drops 1 drp EACH EYE Q1H PRN (Reason: DRY EYES) Qty: 0 0RF furosemide 40 mg tablet 40 mg PO BID Label Comments: TAKE 1 TABLET BY MOUTH TWICE DAILY docusate sodium 50 mg Capsule 50 mg PO DAILY potassium chloride 20 mEq tablet,ER particles/crystals 20 meq PO BID hydrochlorothiazide 25 mg tablet 25 mg PO DAILY Label Comments: TAKE 1 TABLET BY MOUTH EVERY DAY doxazosin 1 mg tablet 1 mg PO QHS Rx Instructions: TAKE 1 TABLET BY MOUTH AT BEDTIME FOR BENIGN PROSTATIC HYPERPLASIA Trulicity 4.5 mg/0.5 mL pen injector 4.5 mg subcut FR ciprofloxacin HCl 500 mg tablet 500 mg PO BID Qty: 10 0RF (DME) compr.stocking,thigh,reg,large Misc See Dose Instructions .ROUTE .MEDSUPPLY Qty: 6 1RF Dose Instruction: As directed Rx Instructions: use daily for venous insufficiency 20-30 mmhg (DME) compress.stocking,knee,reg,lrg Misc See Rx Instructions .ROUTE .MEDSUPPLY Qty: 6 1RF Rx Instructions: Use Daily for venous insufficiency 20-30mmHg (DME) cpap mask See Rx Instructions .Route .MEDSUPPLY Qty: 1 0RF Rx Instructions: Use nightly (DME) Garcia Catheter 16 Fr misc See Rx Instructions .Route Qty: 1 0RF Rx Instructions: change every 4 weeks lisinopril 40 mg tablet 40 mg PO DAILY Qty: 90 0RF Primary Care Provider: Jimmie Rand Referrals: Jimmie Rand MD [Primary Care Provider] - Disposition Disposition: Acute Care Hospital [facility]
[2022-06-19] MEDS: 0.9% Normal Saline 1,000 ML 1000 ML IV (16:24)
[2022-06-19] MEDS: Ondansetron 4 MG/2 ML Vial IV (16:24)
[2022-06-19 16:49] LABS: Absolute Lymphocyte Count 1.11 X10^3/uL (0.83-4.51); Basophil# 0.04 X10^3/uL; Basophil% 0.4 % (0-1); Eosinophil# 0.26 X10^3/uL; Eosinophils% 2.5 % (0-5); Hematocrit 32.9 % (40-54); Hemoglobin 9.7 g/dL (13.0-16.5); Lymphocyte # 1.11 X10^3/ul (0.83-4.51); Lymphocyte % 10.9 % (19-41); Mean Corp Hgb Conc 29.5 g/dL (32-36); Mean Corpuscular Hgb 26.6 pg (27.0-32.0); Mean Corpuscular Volume 90.1 fL (80-94); Mean Platelet Vol. 9.7 fl (6.2-12.0); Monocyte# 0.57 X10^3/uL; Monocyte% 5.6 % (0-10); NRBC Flagged by Analyzer 0 % (0-5); Neutrophil # 8.03 X10^3/uL (2.7-7.7); Neutrophil % 78.6 % (47-70); Platelet Count 397 K/mm3 (150-450); RBC Distribution Width CV 16.6 % (11.6-14.6); RBC Distribution Width SD 55.4 fl (35.1-43.9); Red Blood Count 3.65 M/mm3 (4.6-6.2); White Blood Count 10.2 K/mm3 (4.4-11.0)
--- NOTE | 2022-06-19 16:54 | ED.RN ---
Patient had 1 L NS with squad, wide open. On second bolus here for total of 2L. Fluid Resuscitation is 5400ml for patient. Still needs 3400ML.
[2022-06-19 17:07] LABS: AST(SGOT) 24 U/L (15-37); Alanine Aminotransfer ALT/SGPT 71 U/L (16-61); Albumin, Serum 2.5 g/dL (3.2-5.0); Alkaline Phosphatase 141 U/L (45-117); Anion Gap 8 (5-15); BUN 67 mg/dL (7-18); BUN/Creat Ratio 30.7 RATIO (10-20); Bilirubin, Direct 0.09 mg/dL (0.00-0.30); Calcium,Total 10.2 mg/dL (8.5-10.1); Chloride 110 mmol/L (98-107); Creatinine, Serum 2.18 mg/dL (0.70-1.30); EST Glomerular Filtration Rate 34 mL/min (>60); Est Glom Filt Rate - Afr Amer 41 mL/min (>60); Estimated Creatinine Clearance 42.52 ml/min; Globulin 5.2 g/dL (2.2-4.2); Glucose 136 mg/dL (74-106); Potassium 5.8 mmol/L (3.5-5.1); Protein, Total 7.7 g/dL (6.4-8.2); Sodium Level 138 mmol/L (136-145)
--- NOTE | 2022-06-19 17:09 | ED.RN ---
Discussed sepsis alert with dr mello. pt reports his bp is baseline and at this time we are not calling it. He is receiving his second liter of fluids and blood cultures were obtained.
[2022-06-19 17:12] LABS: Mucous, Urine 0 SEEN /hpf (<or=2+); Squamous Epithelial Cells - UA 0 SEEN /hpf (0-5)
[2022-06-19 17:18] LABS: Color, Urine Amber (Yellow); Glucose, Dipstick Normal (Normal); Ketone-Dipstick 5 mg/dl (Negative); Leukocyte Esterase-Dipstick 500 /ul (Negative); Nitrite-Dipstick Negative (Negative); Occult Blood-Urine 50 /ul (Negative); Protein-Dipstick 30 mg/dl (Negative); Urine Clarity Sl. Cloudy (Clear); Urine Urobilinogen 1 mg/dl (Normal)
[2022-06-19 17:21] LABS: Urine Bilirubin Dipstick 6 mg/dL (Negative)
[2022-06-19 17:31] LABS: Bacteria 2+ /hpf (None Seen); Calcium Oxalate Crystals Ur RARE /hpf (<or=2+); Hyaline Cast 0-5 SEEN /lpf (0-5); Red Blood Cells-Urine 0-5 SEEN /hpf (0-5); White Blood Cells 10-25 SEEN /hpf (0-5); Yeast-Urine RARE /hpf (None Seen)
[2022-06-19] MEDS: 0.9% Normal Saline 1,000 ML 999 ML IV ×2 (17:42→18:41)
--- NOTE | 2022-06-19 17:45 | NURSING ---
After lactic acid is back, we are starting fluid resuscitation for the sepsis alert. EH will have had 1L from squad plus 2500L NS from us BOLUSED and then the maintenance fluids per discussion with Dr Nguyen. Will add note before admit to floor with clear explanation of fluids given, vs outstanding,at that time
--- NOTE | 2022-06-19 18:13 | NURSING ---
PCU FLORENCE ION, UTI, GASTROENTERITIS
--- NOTE | 2022-06-19 18:47 | ED.RN ---
Hanging 3rd bag now plus the 1 L given by squad so can be changed over to maintenance fluids once 500ml of this bag have been infused.
--- NOTE | 2022-06-19 19:32 | PCM.HP.STD ---
HPI - General General Date of Admission: 06/19/22 Date of Service: 06/19/22 Chief Complaint: Nausea/Vomiting/diarrhea HPI Narrative SERENITY MACHADO, is a 52 M who presented to the emergency department was coming hospital on 06/19/2022 after developing nausea, vomiting, and diarrhea that started earlier today. He has not had any fever or any other symptoms. He was recently admitted from 06/05/2022 through 06/07/2022 with similar symptoms. At that time he had a CT of his abdomen pelvis that showed infectious colitis and he was also found to have urinary tract infection. [facility] and states he took that and completed the course. Earlier today he started having nausea, vomiting, and diarrhea again. He reports that I was vomiting and it was coming out of my butt is facet was coming out of my mouth. He lives with his 85-year-old mother and 16-year-old daughter who help take care of him. He waited to come in last time and was fairly ill when he arrived so this time he decided to come in earlier. Vital signs on presentation showed a temperature of 98.9, heart rate of 105, blood pressure of 106/56, respiratory rate was 17, pulse oxygen 98% on room air. CBC shows normal white count, anemia with a hemoglobin of 9.7 which is stable, his chemistry panel showed hyperkalemia with a potassium of 5.8, chloride of 110 with a serum bicarb of 20, BUN of 67 and a serum creatinine of 2.18. Initial lactate was 2 with a repeat at 1.2. He has slight ALT elevation at 71. His urine is consistent with acute infection however he does have a chronic Garcia. His last culture was positive for Pseudomonas that was sensitive to meropenem but had multiple resistances. [facility] Medical History Acute respiratory failure, unspecified whether with hypoxia or hypercapnia Alcohol abuse Anemia Anxiety and depression Bacteremia due to Enterococcus Avelar's palsy Blister (nonthermal), right foot, initial encounter Chronic ulcer of right foot with fat layer exposed CPAP (continuous positive airway pressure) dependence Decubitus ulcer of sacral region, stage 4 Decubitus ulcer, buttock Depression Diabetes DVT (deep venous thrombosis) Edema of both lower extremities Essential (primary) hypertension Former smoker Headache Hemoglobin A1c 8.0% or greater History of foot ulcer History of stress test history of tooth removal Hyperlipidemia Incontinence 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 Insomnia Left shoulder 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 snf (current) 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 Morbid (severe) obesity due to excess calories Neuromuscular dysfunction of bladder, unspecified Neuropathic pain Obesities, morbid Obstructive sleep apnea On home oxygen therapy Osteoporosis Other seasonal allergic rhinitis Paraplegia Pressure sore of left ischium, unstageable Pressure ulcer Pressure ulcer of left buttock, unstageable Pressure ulcer of right buttock, unstageable Pressure ulcer of sacral region, unstageable Primary osteoarthritis, left shoulder Sacral ulcer Sacral wound Self-catheterizes urinary bladder Sepsis Skin necrosis Skin ulcer of left hip Skin ulcer of right hip Sleep apnea Stage II pressure ulcer Stage II pressure ulcer of buttock Type 2 diabetes mellitus with diabetic polyneuropathy Wound infection Home Medications compr.stocking,thigh,reg,large #6 ea 11/11/20 [Rx Last Taken Unknown] compress.stocking,knee,reg,lrg #6 ea 11/12/20 [Rx Last Taken Unknown] cpap mask #1 ea 07/14/21 [Rx Last Taken Unknown] atorvastatin 20 mg tablet 20 mg PO QHS cholesterol lowering 08/29/21 [History Last Taken 06/18/22] acetaminophen 325 mg capsule 650 mg PO Q4H PRN pain 02/28/22 [History Last Taken 06/19/22] amlodipine 10 mg tablet 10 mg PO DAILY heart 02/28/22 [History Last Taken 06/19/22] gabapentin 400 mg capsule 400 mg PO 4X/DAY nerve pain 02/28/22 [History Last Taken 06/19/22] multivitamin 1 tab PO DAILY supplement 02/28/22 [History Last Taken 06/19/22] catheter 16 Fr (Garcia Catheter) #1 ea 04/03/22 [Rx Last Taken Unknown] lurasidone 60 mg tablet (Latuda) 60 mg PO DINNER depression 04/12/22 [History Last Taken 06/18/22] peg [id number] 1 %-0.2 %-0.2 % eye drops (Artificial Tears ([id number])) 1 drp EACH EYE Q1H PRN DRY EYES #0 mL 04/14/22 [Rx Last Taken 06/04/22] doxazosin 1 mg tablet 1 mg PO QHS PROSTATE 06/05/22 [History Last Taken 06/18/22] dulaglutide 4.5 mg/0.5 mL subcutaneous pen injector (Trulicity) 4.5 mg subcut FR blood sugar 06/05/22 [History Last Taken 06/16/22] furosemide 40 mg tablet 40 mg PO BID ADEMA 06/05/22 [History Last Taken 06/19/22] hydrochlorothiazide 25 mg tablet 25 mg PO DAILY BP 06/05/22 [History Last Taken 06/19/22] potassium chloride 20 mEq tablet,extended release(part/cryst) 20 meq PO BID SUPPLEMENT 06/05/22 [History Last Taken 06/19/22] lisinopril 40 mg tablet 40 mg PO DAILY BP #90 tabs 06/08/22 [Rx Last Taken 06/19/22] insulin regular hum U-500 conc 500 unit/mL(3 mL) subcut pen (Humulin R U-500 (Conc) Insulin Kwikpen) 60 unit subcut TIDCM dm 06/19/22 [History Last Taken 06/19/22] Allergy/AdvReac Type Severity Reaction Status Date / Time metformin AdvReac Unknown Diarrhea Verified 06/05/22 14:05 Family History Father Heart disease Myocardial infarction, Onset Age: 64 Hyperlipemia Mother Heart disease Hypertension Hyperlipemia Uncle Heart disease Grandfather Diabetes Grandmother Diabetes Surgical History History of back surgery Social History Smoking Status: Former smoker alcohol intake: former substance use type: does not use what type of physical activity do you participate in: none ROS Constitutional Constitutional: Reports weakness; Denies anorexia, change in weight, chills, fatigue, fever(s), malaise, night sweats or other Eyes Eyes: Denies blurry vision, change in eye color, change in vision, discharge from eye(s), double vision, erythema, eye pain, loss of vision or other ENT HEENT: Denies abnormal hearing, dysphagia, ear pain, epistaxis, headache(s), hearing loss, nasal congestion, nasal discharge, post nasal drip, sinus pressure, sore throat or other Cardiovascular Cardiovascular: Denies chest pain, claudication, dyspnea on exertion, edema, lightheadedness, orthopnea, palpitations, paroxysmal nocturnal dyspnea, rapid heart rate, syncope or other Respiratory/Chest Respiratory/Chest: Denies cough, dyspnea, excessive phlegm production, hemoptysis, productive cough, shortness of breath at rest, shortness of breath with exertion, wheezing or other Gastrointestinal Gastrointestinal: Reports diarrhea, nausea and vomiting; Denies abdominal pain, coffee ground emesis, constipation, dyspepsia, hematemesis, hematochezia, loose stools, melena or other Genitourinary Genitourinary: Reports other Details: With chronic Garcia and frequent urine tract infections ; Denies burning urination, difficulty urinating, dysuria, hematuria, nocturia, urinary frequency, urinary hesitancy, urinary incontinence or urinary urgency Neurologic Neurologic: Denies abnormal gait, abnormal speech, confusion, disequilibrium, dizziness, focal weakness, headache(s), numbness, paresthesias, seizure-like activity, seizures, syncope, tingling, tremor(s) or other Psychiatric Psychiatric: Denies anxiety, depression, homicidal ideation, suicidal ideation or other Endocrine Endocrinology: Denies change in body appearance, cold intolerance, excessive sweating, heat intolerance, polydipsia, polyuria or other Hematologic/Lymphatic Hematologic/Lymphatic: Denies anemia, easy bleeding, easy bruising, lymphadenopathy or other Allergic/Immunologic Allergic/Immunologic: Denies rhinitis, hives, eczemia, asthma or other Vital Signs Vital Signs Vital Signs: 06/19/22 15:44 06/19/22 16:50 06/19/22 16:50 Temperature 98.9 F 99.0 F Temperature Source Temporal Temporal Pulse Rate 105 H 99 Respiratory Rate 17 15 Respiratory Effort Normal Respiratory Pattern Normal Blood Pressure 106/56 L 86/64 L Blood Pressure Mean 72 71 Pulse Ox 98 98 Oxygen Delivery Method Room Air Room Air 06/19/22 17:47 06/19/22 18:43 Temperature 98.8 F Temperature Source Temporal Pulse Rate 96 99 Respiratory Rate 17 Respiratory Effort Respiratory Pattern Blood Pressure 96/53 L 115/101 H Blood Pressure Mean 67 105 Pulse Ox 98 97 Oxygen Delivery Method Room Air Room Air Weight Weight: 180.1 kg Body Mass Index (BMI) 53.8 Physical Exam Const alert, oriented x3, no apparent distress and well nourished General Appearance: cooperative HEENT normocephalic and hearing grossly normal bilaterally HEENT Narrative: dry mucous membrane Eyes PERRL, EOMs intact bilaterally and conjunctivae normal Neck no lymphadenopathy, supple and no JVD Resp normal respiratory effort, no retractions, no use of accessory muscles and clear to auscultation bilaterally Auscultation: Negative for crackles, rhonchi or wheezes Cardio regular rate, regular rhythm, S1 normal heart sound, S2 normal heart sound, no murmurs, no rub, no gallops and no clicks GI normal to inspection, nondistended, normoactive bowel sounds, soft to palpation and non-tender Extremity no clubbing, cyanosis or edema Extremity Narrative: Chronic flaccidity Skin no rashes or lesions noted, No no wounds, no jaundice, no petechiae and no mottling Skin Narrative: Skin tenting Neuro oriented x3 and CN's II-XII intact bilaterally Neuro Narrative: Bilateral lower extremity paraplegia which is chronic, symmetrical movement of upper extremities Speech: speech normal Psych Psych Narrative: Patient is agitated and swearing in the room not particularly at me but seems frustrated with his family Results Lab / Micro Data Result Diagrams: 06/19/22 16:40 06/19/22 16:40 Labs: Laboratory Results - last 24 hr 06/19/22 16:40: WBC 10.2, RBC 3.65 L, Hgb 9.7 L, Hct 32.9 L, MCV 90.1, MCH 26.6 L, MCHC 29.5 L, RDW Std Deviation 55.4 H, RDW Coeff of Fei 16.6 H, Plt Count 397, MPV 9.7, Immature Gran % (Auto) 2.000 H, Neut % (Auto) 78.6 H, Lymph % (Auto) 10.9 L, [place] % (Auto) 5.6, Eos % (Auto) 2.5, Baso % (Auto) 0.4, Absolute Neuts (auto) 8.0 H, Absolute Lymphs (auto) 1.11, Nucleated RBC % 0 06/19/22 16:40: Sodium 138, Potassium 5.8 H, Chloride 110 H, Carbon Dioxide 20.0 L, Anion Gap 8, BUN 67 H, Creatinine 2.18 H, Estim Creat Clear Calc 42.52, Est GFR (MDRD) Af Amer 41 L, Est GFR (MDRD) Non-Af 34 L, BUN/Creatinine Ratio 30.7 H, Glucose 136 H, Calcium 10.2 H, Total Bilirubin 0.20, Direct Bilirubin 0.09, AST 24, ALT 71 H, Alkaline Phosphatase 141 H, Total Protein 7.7, Albumin 2.5 L, Globulin 5.2 H 06/19/22 16:40: Lactic Acid 2.0 06/19/22 16:40: Urine Color [place], Urine Clarity Sl. Cloudy, Urine pH 5.0, Ur Specific [place] 1.020, Urine Protein 30 H, Urine Glucose (UA) Normal, Urine Ketones 5 H, Urine Occult Blood 50 H, Urine Nitrite Negative, Urine Bilirubin 6 H, Urine Urobilinogen 1 H, Ur Leukocyte Esterase 500 H, Urine RBC 0-5 SEEN, Urine WBC 10-25 SEEN, Ur Squamous Epith Cells 0 SEEN, Calcium Oxalate Crystal RARE, Urine Bacteria 2+, Hyaline Casts 0-5 SEEN, Urine Mucus 0 SEEN, Urine Yeast RARE Assessment & Plan Assessment/Plan (1) UTI (urinary tract infection): (2) Nausea, vomiting, and diarrhea: (3) Acute kidney injury: (4) Hyperkalemia: (5) Dehydration: PLAN: Plan Acute enteritis -Patient presented with abdominal pain/nausea/vomiting -CT of the abdomen pelvis showed features suggestive of acute infectious or inflammatory colitis at his last admission on 06/05 -Check enteric panel and C. difficile -Start meropenem -Clear liquid diet and advance as tolerated -Consider GI consult if symptoms do not resolve Acute urinary tract infection -Patient does have issues with chronic UTIs related to his paraplegia and intermittent cathing -Urine culture sent -We will utilize meropenem based on previous cultures and sensitivities -May need ID involvement depending on cultures results and sensitivities Acute hyperkalemia -Likely related to dehydration and ION -Hold home Lasix -Hold home hydrochlorothiazide -Hold home lisinopril -No significant EKG changes ION -Baseline serum creatinine is between 0.8 and 1 -Current serum creatinine is 2.18 -Patient appears markedly dehydrated -Aggressive IV fluids Chronic sacral decubitus -Consult wound care -Patient will likely need placement as his mother who is in her 80s is having difficulty helping care for him at home and his daughter 16 years old Debility -We will likely need placement at discharge -Case management consultation DM-2 -Patient is on U500 insulin but a decreased dose with ION and only utilizing a clear liquid diet for now -Hold home Trulicity -SSI -Accu-Cheks 3 times daily and at bedtime Hypertension -Hold home Lasix -Continue home amlodipine -Hold home hydrochlorothiazide -Would recommend complete discontinuation of hydrochlorothiazide at discharge as patient has ongoing issues with electrolyte disturbances and is already on Lasix -Will hold this hospitalization -As needed labetalol available for systolic greater than 160 Hyperlipidemia -Continue home statin Paraplegia -Patient is at baseline ROX -Nocturnal CPAP with 4 L bleed -Patient has home unit and okay to use Morbid obesity -Complicates treatment, prognosis, outcomes -BMI is 53.7 -Recommend weight loss DVT prophylaxis -Lovenox -SCDs CODE STATUS -Full code as per discussion on admission the emergency department Charges/Coding Visit Charges Inpatient E&M: 17275 Init Hosp L2
[2022-06-19 20:46] LABS: Reflex Lactate? Y
[2022-06-19 21:31] LABS: Lactic Acid 1.2 mmol/L (0.4-1.9)
[2022-06-19] MEDS: 0.9% Saline Lock 10 ML Syringe IV (22:13)
[2022-06-19] MEDS: 0.9% Normal Saline 1,000 ML 150 ML IV (22:13)
[2022-06-19] MEDS: Heparin Injection (Vial) 5,000 UNIT/ML VIAL 5000 UNIT SC (22:15)
[2022-06-19] MEDS: Atorvastatin Calcium 20 MG Tablet PO (22:21)
[2022-06-20] VITALS (12 sets, daily range): BP systolic 99–138; BP diastolic 45–98; PULSE 78–91; RESP 16–23; TEMP 36.2–37.1; O2SAT 91–96
[2022-06-20 01:35] LABS: Bedside Glucose 103 mg/dL (74-106)
[2022-06-20] MEDS: Heparin Injection (Vial) 5,000 UNIT/ML VIAL 5000 UNIT SC ×3 (06:35→21:46)
[2022-06-20] MEDS: 0.9% Normal Saline 1,000 ML 150 ML IV ×2 (06:35→16:59)
[2022-06-20 07:00] LABS: Absolute Lymphocyte Count 1.47 X10^3/uL (0.83-4.51); Absolute Neutrophil Count 4.4 X10^3/uL (2.0-7.7); Basophil# 0.04 X10^3/uL; Basophil% 0.5 % (0-1); Eosinophils% 11.7 % (0-5); Hematocrit 29.2 % (40-54); Hemoglobin 8.6 g/dL (13.0-16.5); Lymphocyte # 1.47 X10^3/ul (0.83-4.51); Lymphocyte % 19.1 % (19-41); Mean Corp Hgb Conc 29.5 g/dL (32-36); Mean Corpuscular Hgb 26.9 pg (27.0-32.0); Mean Corpuscular Volume 91.3 fL (80-94); Mean Platelet Vol. 9.2 fl (6.2-12.0); Monocyte# 0.66 X10^3/uL; Monocyte% 8.6 % (0-10); NRBC Flagged by Analyzer 0 % (0-5); Neutrophil # 4.41 X10^3/uL (2.7-7.7); Neutrophil % 57.5 % (47-70); Platelet Count 391 K/mm3 (150-450); RBC Distribution Width CV 16.8 % (11.6-14.6); RBC Distribution Width SD 56.7 fl (35.1-43.9); White Blood Count 7.7 K/mm3 (4.4-11.0)
[2022-06-20 07:44] LABS: ALB/GLOB Ratio 0.5 RATIO (0.9-2.4); AST(SGOT) 15 U/L (15-37); Alanine Aminotransfer ALT/SGPT 53 U/L (16-61); Albumin, Serum 2.3 g/dL (3.2-5.0); Alkaline Phosphatase 122 U/L (45-117); Anion Gap 5 (5-15); BUN 70 mg/dL (7-18); BUN/Creat Ratio 29.5 RATIO (10-20); Calcium,Total 9.5 mg/dL (8.5-10.1); Chloride 111 mmol/L (98-107); Creatinine, Serum 2.37 mg/dL (0.70-1.30); EST Glomerular Filtration Rate 31 mL/min (>60); Est Glom Filt Rate - Afr Amer 37 mL/min (>60); Estimated Creatinine Clearance 37.95 ml/min; Globulin 4.6 g/dL (2.2-4.2); Glucose 124 mg/dL (74-106); Magnesium 2.1 mg/dL (1.6-2.6); Phosphorus 4.9 mg/dL (2.5-4.9); Potassium 6.3 mmol/L (3.5-5.1); Protein, Total 6.9 g/dL (6.4-8.2); Sodium Level 137 mmol/L (136-145)
[2022-06-20 08:45] LABS: Bedside Glucose 120 mg/dL (74-106)
--- NOTE | 2022-06-20 08:49 | PN.HOSP_ITS ---
Subjective Subjective Feels better Objective Data Objective Data Vital Signs: Vital Signs Temp Pulse Resp BP Pulse Ox O2 Del Method FiO2 36.3 C L 78 16 106/52 L 91 Room Air 35 06/20/22 06:44 06/20/22 07:37 06/20/22 06:44 06/20/22 06:44 06/20/22 06:50 06/20/22 06:50 06/20/22 04:51 Oxygen Delivery Method Room Air Weight: 174.5 kg Body Mass Index (BMI) 53.6 Intake & Output: Intake and Output for Last 24 Hours 06/18/22 06/19/22 06/20/22 23:59 23:59 23:59 Intake Total 3119 / 3119 1000 / 1000 Output Total 400 / 400 Balance 3119 / 3119 600 / 600 Lab / Micro Data Result Diagrams: 06/20/22 06:44 06/20/22 09:35 Labs: Laboratory Results - last 24 hr 06/19/22 16:40: WBC 10.2, RBC 3.65 L, Hgb 9.7 L, Hct 32.9 L, MCV 90.1, MCH 26.6 L, MCHC 29.5 L, RDW Std Deviation 55.4 H, RDW Coeff of Fei 16.6 H, Plt Count 397, MPV 9.7, Immature Gran % (Auto) 2.000 H, Neut % (Auto) 78.6 H, Lymph % (Auto) 10.9 L, [place] % (Auto) 5.6, Eos % (Auto) 2.5, Baso % (Auto) 0.4, Absolute Neuts (auto) 8.0 H, Absolute Lymphs (auto) 1.11, Nucleated RBC % 0 06/19/22 16:40: Sodium 138, Potassium 5.8 H, Chloride 110 H, Carbon Dioxide 20.0 L, Anion Gap 8, BUN 67 H, Creatinine 2.18 H, Estim Creat Clear Calc 42.52, Est GFR (MDRD) Af Amer 41 L, Est GFR (MDRD) Non-Af 34 L, BUN/Creatinine Ratio 30.7 H , Glucose 136 H, Calcium 10.2 H, Total Bilirubin 0.20, Direct Bilirubin 0.09, AST 24, ALT 71 H, Alkaline Phosphatase 141 H, Total Protein 7.7, Albumin 2.5 L, Globulin 5.2 H 06/19/22 16:40: Lactic Acid 2.0 06/19/22 16:40: Urine Color [place], Urine Clarity Sl. Cloudy, Urine pH 5.0, Ur Specific [place] 1.020, Urine Protein 30 H, Urine Glucose (UA) Normal, Urine Ketones 5 H, Urine Occult Blood 50 H, Urine Nitrite Negative, Urine Bilirubin 6 H, Urine Urobilinogen 1 H, Ur Leukocyte Esterase 500 H, Urine RBC 0-5 SEEN, Urine WBC 10-25 SEEN, Ur Squamous Epith Cells 0 SEEN, Calcium Oxalate Crystal RARE, Urine Bacteria 2+, Hyaline Casts 0-5 SEEN, Urine Mucus 0 SEEN, Urine Yeast RARE 06/19/22 21:00: Lactic Acid 1.2 06/19/22 22:24: POC Glucose 103 06/20/22 06:44: WBC 7.7, RBC 3.20 L, Hgb 8.6 L, Hct 29.2 L, MCV 91.3, MCH 26.9 L , MCHC 29.5 L, RDW Std Deviation 56.7 H, RDW Coeff of Fei 16.8 H, Plt Count 391, MPV 9.2, Immature Gran % (Auto) 2.600 H, Neut % (Auto) 57.5, Lymph % (Auto) 19.1, [place] % (Auto) 8.6, Eos % (Auto) 11.7 H, Baso % (Auto) 0.5, Absolute Neuts (auto) 4.4, Absolute Lymphs (auto) 1.47, Nucleated RBC % 0 06/20/22 06:44: Sodium 137, Potassium 6.3 H*, Chloride 111 H, Carbon Dioxide 21.0, Anion Gap 5, BUN 70 H, Creatinine 2.37 H, Estim Creat Clear Calc 37.95, E st GFR (MDRD) Af Amer 37 L, Est GFR (MDRD) Non-Af 31 L, BUN/Creatinine Ratio 29.5 H, Glucose 124 H, Calcium 9.5, Phosphorus 4.9, Magnesium 2.1, Total Bilirubin 0.30, AST 15, ALT 53, Alkaline Phosphatase 122 H, Total Protein 6.9, Albumin 2.3 L, Globulin 4.6 H, Albumin/Globulin Ratio 0.5 L 06/20/22 08:18: POC Glucose 120 H Micro: Microbiology 06/19/22 19:12 Stool Stool Lactoferrin - Final Physical Exam Const alert and no apparent distress HEENT head/scalp atraumatic Resp normal respiratory effort, no retractions, no use of accessory muscles and clear to auscultation bilaterally Cardio regular rate, regular rhythm, S1 normal heart sound and S2 normal heart sound GI normal to inspection, nondistended, normoactive bowel sounds and soft to pal pation Assessment & Plan Assessment/Plan (1) UTI (urinary tract infection): PLAN: Acute urinary tract infection -Patient does have issues with chronic UTIs related to his paraplegia and intermittent cathing -Urine culture sent -We will utilize meropenem based on previous cultures and sensitivities -May need ID involvement depending on cultures results and sensitivities Catheter associated (2) Nausea, vomiting, and diarrhea: PLAN: Resolved (3) Acute kidney injury: PLAN: ION -Baseline serum creatinine is between 0.8 and 1 -Current serum creatinine is 2.18 -Patient appears markedly dehydrated -Aggressive IV fluids (4) Hyperkalemia: PLAN: No mention of hemolysis on report Kayexalate Recheck (5) Dehydration: (6) Enteritis: PLAN: Acute enteritis -Patient presented with abdominal pain/nausea/vomiting -CT of the abdomen pelvis showed features suggestive of acute infectious or inflammatory colitis at his last admission on 06/05 -Check enteric panel and C. difficile -Start meropenem -Clear liquid diet and advance as tolerated -Consider GI consult if symptoms do not resolve PLAN: Plan Chronic conditions: Chronic sacral decubitus -Consult wound care -Patient will likely need placement as his mother who is in her 80s is having difficulty helping care for him at home and his daughter 16 years old Debility -We will likely need placement at discharge -Case management consultation DM-2 -Patient is on U500 insulin but a decreased dose with ION and only utilizing a clear liquid diet for now -Hold home Trulicity -SSI -Accu-Cheks 3 times daily and at bedtime Hypertension -Hold home Lasix -Continue home amlodipine -Hold home hydrochlorothiazide -Would recommend complete discontinuation of hydrochlorothiazide at discharge as patient has ongoing issues with electrolyte disturbances and is already on Lasix -Will hold this hospitalization -As needed labetalol available for systolic greater than 160 Hyperlipidemia -Continue home statin Paraplegia -Patient is at baseline ROX -Nocturnal CPAP with 4 L bleed -Patient has home unit and okay to use Morbid obesity -Complicates treatment, prognosis, outcomes -BMI is 53.7 -Recommend weight loss DVT prophylaxis -Lovenox -SCDs CODE STATUS -Full code as per discussion on admission the emergency department Charges/Coding Visit Charges Inpatient E&M: 14176 Subs Hosp L2
[2022-06-20] MEDS: Sodium Polystyrene Sulfonate 15 GM/60 ML UDC 30 GM PO (09:40)
[2022-06-20] MEDS: DAKIN'S SOL HALF STRENGTH (=0.25%) 1 APPLIC TOPICAL ×2 (10:27→21:59)
[2022-06-20 10:34] LABS: Anion Gap 8 (5-15); BUN 66 mg/dL (7-18); BUN/Creat Ratio 32.7 RATIO (10-20); Calcium,Total 9.4 mg/dL (8.5-10.1); Chloride 108 mmol/L (98-107); Creatinine, Serum 2.02 mg/dL (0.70-1.30); EST Glomerular Filtration Rate 37 mL/min (>60); Est Glom Filt Rate - Afr Amer 45 mL/min (>60); Estimated Creatinine Clearance 44.53 ml/min; Glucose 133 mg/dL (74-106); Sodium Level 137 mmol/L (136-145)
--- NOTE | 2022-06-20 11:17 | WOUNDNOTE ---
wound photo: sacrum
--- NOTE | 2022-06-20 11:18 | WOUNDNOTE ---
wound photo: left gluteal fold
--- NOTE | 2022-06-20 11:18 | WOUNDNOTE ---
wound photo: left lateral ankle
[2022-06-20] MEDS: Insulin U-500 UNITS/ML PEN 45 UNITS SC (11:31)
[2022-06-20 12:25] LABS: Bedside Glucose 154 mg/dL (74-106)
[2022-06-20] MEDS: Acetaminophen 325 MG Tablet 650 MG PO ×2 (14:09→23:57)
[2022-06-20 16:54] LABS: Anion Gap 7 (5-15); BUN 53 mg/dL (7-18); BUN/Creat Ratio 33.8 RATIO (10-20); Calcium,Total 9.2 mg/dL (8.5-10.1); Chloride 108 mmol/L (98-107); Creatinine, Serum 1.57 mg/dL (0.70-1.30); EST Glomerular Filtration Rate 49 mL/min (>60); Est Glom Filt Rate - Afr Amer 60 mL/min (>60); Estimated Creatinine Clearance 57.29 ml/min; Glucose 143 mg/dL (74-106); Potassium 5.5 mmol/L (3.5-5.1); Sodium Level 137 mmol/L (136-145)
[2022-06-20 17:20] LABS: Bedside Glucose 128 mg/dL (74-106)
[2022-06-20] MEDS: LURASIDONE HCL 20 MG TABLET 60 MG PO (17:37)
[2022-06-20] MEDS: Atorvastatin Calcium 20 MG Tablet PO (21:46)
[2022-06-20 23:51] LABS: Bedside Glucose 139 mg/dL (74-106)
[2022-06-21] VITALS (13 sets, daily range): BP systolic 105–144; BP diastolic 47–71; PULSE 75–95; RESP 16–20; TEMP 36.8–36.9; O2SAT 95–100
[2022-06-21] MEDS: 0.9% Normal Saline 1,000 ML 150 ML IV (01:05)
[2022-06-21] MEDS: Lactated Ringers 1,000 ML 75 ML IV ×2 (04:00→17:26)
[2022-06-21] MEDS: Heparin Injection (Vial) 5,000 UNIT/ML VIAL 5000 UNIT SC ×3 (06:17→22:34)
[2022-06-21 06:57] LABS: Absolute Lymphocyte Count 1.07 X10^3/uL (0.83-4.51); Absolute Neutrophil Count 2.7 X10^3/uL (2.0-7.7); Basophil# 0.02 X10^3/uL; Basophil% 0.4 % (0-1); Eosinophils% 15.5 % (0-5); Hematocrit 29.6 % (40-54); Hemoglobin 9.2 g/dL (13.0-16.5); Lymphocyte # 1.07 X10^3/ul (0.83-4.51); Lymphocyte % 20.7 % (19-41); Mean Corp Hgb Conc 31.1 g/dL (32-36); Mean Corpuscular Hgb 27.3 pg (27.0-32.0); Mean Corpuscular Volume 87.8 fL (80-94); Monocyte# 0.44 X10^3/uL; Monocyte% 8.5 % (0-10); NRBC Flagged by Analyzer 0 % (0-5); Neutrophil # 2.65 X10^3/uL (2.7-7.7); Neutrophil % 51.4 % (47-70); Platelet Count 337 K/mm3 (150-450); RBC Distribution Width CV 15.9 % (11.6-14.6); Red Blood Count 3.37 M/mm3 (4.6-6.2); White Blood Count 5.2 K/mm3 (4.4-11.0)
[2022-06-21 07:16] LABS: Bedside Glucose 142 mg/dL (74-106)
[2022-06-21 07:32] LABS: Anion Gap 6 (5-15); BUN 35 mg/dL (7-18); Calcium,Total 9.4 mg/dL (8.5-10.1); Chloride 108 mmol/L (98-107); Creatinine, Serum 0.85 mg/dL (0.70-1.30); EST Glomerular Filtration Rate 99 mL/min (>60); Est Glom Filt Rate - Afr Amer 120 mL/min (>60); Estimated Creatinine Clearance 105.81 ml/min; Glucose 138 mg/dL (74-106); Potassium 4.5 mmol/L (3.5-5.1); Sodium Level 137 mmol/L (136-145)
[2022-06-21] MEDS: Acetaminophen 325 MG Tablet 650 MG PO ×3 (07:55→20:33)
[2022-06-21] MEDS: Glucerna Shake 120 ML LIQUID PO ×3 (07:57→17:25)
[2022-06-21] MEDS: Insulin U-500 UNITS/ML PEN 45 UNITS SC ×3 (07:57→17:25)
--- NOTE | 2022-06-21 09:09 | PN.HOSP_ITS ---
Subjective Subjective Upset about a myriad of issues, much of which is pertain to his family and his daughter. Objective Data Objective Data Vital Signs: Vital Signs Temp Pulse Resp BP Pulse Ox O2 Del Method FiO2 36.8 C 79 16 105/47 L 99 Room Air 35 06/21/22 03:37 06/21/22 07:00 06/21/22 03:55 06/21/22 03:37 06/21/22 07:48 06/21/22 07:55 06/21/22 03:55 Oxygen Delivery Method Room Air Weight: 174.5 kg Body Mass Index (BMI) 53.6 Intake & Output: Intake and Output for Last 24 Hours 06/19/22 06/20/22 06/21/22 23:59 23:59 23:59 Intake Total 3119 / 3119 3120.0 / 3520.0 1542.5 / 1542.5 Output Total 400 / 2200 5300 / 5300 Balance 3119 / 3119 2720.0 / 1320.0 -3757.5 / -3757.5 Lab / Micro Data Result Diagrams: 06/21/22 06:35 06/21/22 06:35 Labs: Laboratory Results - last 24 hr 06/19/22 16:40: Urine Color Nneka, Urine Clarity Sl. Cloudy, Urine pH 5.0, Ur Specific [place] 1.020, Urine Protein 30 H, Urine Glucose (UA) Normal, Urine Ketones 5 H, Urine Occult Blood 50 H, Urine Nitrite Negative, Urine Bilirubin 6 H, Urine Urobilinogen 1 H, Ur Leukocyte Esterase 500 H, Urine RBC 0-5 SEEN, Uri ne WBC 10-25 SEEN, Ur Squamous Epith Cells 0 SEEN, Calcium Oxalate Crystal RARE, Urine Bacteria 2+, Hyaline Casts 0-5 SEEN, Urine Mucus 0 SEEN, Urine Yeast RARE 06/20/22 09:35: Sodium 137, Potassium 6.0 H*, Chloride 108 H, Carbon Dioxide 21.0, Anion Gap 8, BUN 66 H, Creatinine 2.02 H, Estim Creat Clear Calc 44.53, Est GFR (MDRD) Af Amer 45 L, Est GFR (MDRD) Non-Af 37 L, BUN/Creatinine Ratio 32.7 H, Glucose 133 H, Calcium 9.4 06/20/22 11:27: POC Glucose 154 H 06/20/22 16:13: Sodium 137, Potassium 5.5 H, Chloride 108 H, Carbon Dioxide 22.0, Anion Gap 7, BUN 53 H, Creatinine 1.57 H, Estim Creat Clear Calc 57.29, Est GFR (MDRD) Af Amer 60, Est GFR (MDRD) Non-Af 49 L, BUN/Creatinine Ratio 33.8 H, Glucose 143 H, Calcium 9.2 06/20/22 16:47: POC Glucose 128 H 06/20/22 21:33: POC Glucose 139 H 06/21/22 06:20: POC Glucose 142 H 06/21/22 06:35: WBC 5.2, RBC 3.37 L, Hgb 9.2 L, Hct 29.6 L, MCV 87.8, MCH 27.3, MCHC 31.1 L D, RDW Std Deviation 52.0 H, RDW Coeff of Fei 15.9 H, Plt Count 337, MPV 9.0, Immature Gran % (Auto) 3.500 H, Neut % (Auto) 51.4, Lymph % (Auto) 20.7, [place] % (Auto) 8.5, Eos % (Auto) 15.5 H, Baso % (Auto) 0.4, Absolute Neuts (auto) 2.7, Absolute Lymphs (auto) 1.07, Nucleated RBC % 0 06/21/22 06:35: Sodium 137, Potassium 4.5, Chloride 108 H, Carbon Dioxide 23.0, Anion Gap 6, BUN 35 H, Creatinine 0.85, Estim Creat Clear Calc 105.81, Est GFR (MDRD) Af Amer 120, Est GFR (MDRD) Non-Af 99, BUN/Creatinine Ratio 41.0 H, Glucose 138 H, Calcium 9.4 Micro: Microbiology 06/19/22 16:41 Urine Catheter - Garcia Urine Culture - Final Pseudomonas aeroginosa 06/19/22 19:12 Stool Stool Lactoferrin - Final 06/19/22 19:12 Stool Enteric Bacteriology - Final 06/19/22 19:12 Stool C. difficile GDH Antigen & Toxins - Final 06/19/22 19:12 Stool C. difficile DNA Amplification - Final Physical Exam Const alert and no apparent distress Resp normal respiratory effort and no retractions Cardio regular rate, regular rhythm, S1 normal heart sound and S2 normal heart sound GI normal to inspection, nondistended, normoactive bowel sounds Extremity Extremity Narrative: edema Assessment & Plan Assessment/Plan (1) UTI (urinary tract infection): QUALIFIERS: Encounter type: initial encounter Indwelling urinary catheter type: indwelling urethral catheter Urinary tract infection type: catheter-associated UTI Qualified Code(s): T83.511A - Infection and inflammatory reaction due to indwelling urethral catheter, initial encounter; N39.0 - Urinary tract infection, site not specified PLAN: -Patient does have issues with chronic UTIs related to his paraplegia and intermittent cathing -Urine culture sent -We will utilize meropenem based on previous cultures and sensitivities -May need ID involvement depending on cultures results and sensitivities Catheter associated Culture showing Pseudomonas aeruginosa: Resistant to Cipro, sensitive gentamicin, imipenem and tobramycin. Patient will need to continue with meropenem through the 10th PICC line (2) Nausea, vomiting, and diarrhea: PLAN: Resolved (3) Acute kidney injury: PLAN: Resolved -Baseline serum creatinine is between 0.8 and 1 -Current serum creatinine is 2.18 -Patient appears markedly dehydrated -Aggressive IV fluids (4) Hyperkalemia: PLAN: No mention of hemolysis on report Kayexalate Resolved (5) Enteritis: PLAN: Resolved -Patient presented with abdominal pain/nausea/vomiting -CT of the abdomen pelvis showed features suggestive of acute infectious or inflammatory colitis at his last admission on 06/05 -Check enteric panel and C. difficile -Start meropenem -Clear liquid diet and advance as tolerated -Consider GI consult if symptoms do not resolve PLAN: Plan Chronic conditions: Chronic sacral decubitus -Consult wound care -Patient will likely need placement as his mother who is in her 80s is having difficulty helping care for him at home and his daughter 16 years old Debility -We will likely need placement at discharge -Case management consultation DM-2 -Patient is on U500 insulin but a decreased dose with ION and only utilizing a clear liquid diet for now -Hold home Trulicity -SSI -Accu-Cheks 3 times daily and at bedtime Hypertension -Hold home Lasix -Continue home amlodipine -Hold home hydrochlorothiazide -Would recommend complete discontinuation of hydrochlorothiazide at discharge as patient has ongoing issues with electrolyte disturbances and is already on Lasix -Will hold this hospitalization -As needed labetalol available for systolic greater than 160 Hyperlipidemia -Continue home statin Paraplegia -Patient is at baseline ROX -Nocturnal CPAP with 4 L bleed -Patient has home unit and okay to use Morbid obesity -Complicates treatment, prognosis, outcomes -BMI is 53.7 -Recommend weight loss DVT prophylaxis -Lovenox -SCDs CODE STATUS -Full code as per discussion on admission the emergency department Charges/Coding Visit Charges Inpatient E&M: 10203 Subs Hosp L2
[2022-06-21] MEDS: Senna/Docusate Sodium 1 Tablet 2 TABLET PO ×2 (09:34→20:33)
[2022-06-21] MEDS: 0.9% Saline Lock 10 ML Syringe IV ×2 (09:35→18:34)
[2022-06-21] MEDS: DAKIN'S SOL HALF STRENGTH (=0.25%) 1 APPLIC TOPICAL ×2 (10:32→20:29)
--- NOTE | 2022-06-21 10:53 | NURSING ---
Patient does not need to be in isolation per Ngoc Rogel ID
--- NOTE | 2022-06-21 11:23 | WOUNDNOTE ---
There was very minimal stool noted in the fecal management system. patient c/p feeling pressure. removed the fecal management system. there was some soft stool noted around the balloon. patient was able to bear down and a small amount of soft form stool out. margo care provided. gloves changed and sacral dressing changed as ordered. pt tolerated well.
--- NOTE | 2022-06-21 11:28 | WOUNDNOTE ---
Pt states he would like to go to [facility] at discharge. EDGAR Dale notified.
[2022-06-21 11:55] LABS: Bedside Glucose 163 mg/dL (74-106)
--- NOTE | 2022-06-21 14:32 | CHAPLAIN ---
Type of Pastoral Visit _x__ Initial Visit ___ Follow-up Visit ___ On-call Visit ___ General Patient Visit ___ Spiritual Assessment ___ Family Conference ___ Bereavement ___ Rapid Response ___ Code Blue ___ Other (describe below) Pastoral Care Referral From _x__ Patient ___ Family ___ Nurse ___ Physician ___ Content Development Specialist ___ Radiation Control Health Physicist ___ Other (describe below) Sacrament/Intervention _x__ Active listening ___ Anointing ___ Lutheran ___ Bereavement ___ Communion ___ Freya exploration ___ _x__ Life review _x__ Prayer ___ Reconciliation ___ Sacrament of Sick _x__ Supportive presence ___ Wedding ___ Other (describe below) Pastoral Comments patient has been seen previously in other admissions; pt gives update on his health and his desire for healing; pt concerned for his mother who is his primary caregiver; pt welcomes the visit and time to talk with someone; prayer is welcomed
--- NOTE | 2022-06-21 16:50 | CASEMGMT ---
Per wound RN patient is agreeable to going to SW. SW verified this with patient. SW sent referral to [facility] via [facility] and they are able to take patient. Suyapa VASQUEZ
[2022-06-21 17:00] LABS: Bedside Glucose 127 mg/dL (74-106)
[2022-06-21] MEDS: LURASIDONE HCL 20 MG TABLET 60 MG PO (17:26)
[2022-06-21] MEDS: Ondansetron 4 MG/2 ML Vial IV (18:34)
[2022-06-21] MEDS: Atorvastatin Calcium 20 MG Tablet PO (20:31)
[2022-06-21] MEDS: Nystatin Powder 15gm Bottle 1 APPLIC TOPICAL (22:47)
--- NOTE | 2022-06-21 22:52 | CPS ---
Humidity added to V60 Cpap 12 at 35% face mask. pt asked to have heater plate turned off.
[2022-06-21 23:41] LABS: Bedside Glucose 129 mg/dL (74-106)
[2022-06-22] VITALS (10 sets, daily range): BP systolic 134–141; BP diastolic 48–80; PULSE 67–88; RESP 16–19; TEMP 36.4–36.7; O2SAT 98–99
[2022-06-22] MEDS: Acetaminophen 325 MG Tablet 650 MG PO ×4 (04:59→18:11)
[2022-06-22] MEDS: Heparin Injection (Vial) 5,000 UNIT/ML VIAL 5000 UNIT SC ×3 (05:00→21:48)
[2022-06-22] MEDS: Nystatin Powder 15gm Bottle 1 APPLIC TOPICAL ×3 (05:01→21:48)
[2022-06-22 06:58] LABS: Absolute Neutrophil Count 2.7 X10^3/uL (2.0-7.7); Basophil# 0.03 X10^3/uL; Basophil% 0.5 % (0-1); Eosinophil# 0.92 X10^3/uL; Eosinophils% 15.7 % (0-5); Hematocrit 28.9 % (40-54); Hemoglobin 9.1 g/dL (13.0-16.5); Lymphocyte % 25.6 % (19-41); Mean Corp Hgb Conc 31.5 g/dL (32-36); Mean Corpuscular Hgb 27.2 pg (27.0-32.0); Mean Corpuscular Volume 86.5 fL (80-94); Mean Platelet Vol. 8.8 fl (6.2-12.0); Monocyte# 0.49 X10^3/uL; Monocyte% 8.4 % (0-10); NRBC Flagged by Analyzer 0 % (0-5); Neutrophil # 2.68 X10^3/uL (2.7-7.7); Neutrophil % 45.7 % (47-70); Platelet Count 324 K/mm3 (150-450); RBC Distribution Width CV 15.7 % (11.6-14.6); RBC Distribution Width SD 49.2 fl (35.1-43.9); Red Blood Count 3.34 M/mm3 (4.6-6.2); White Blood Count 5.9 K/mm3 (4.4-11.0)
[2022-06-22 07:54] LABS: Anion Gap 7 (5-15); BUN 24 mg/dL (7-18); BUN/Creat Ratio 36.1 RATIO (10-20); Calcium,Total 9.6 mg/dL (8.5-10.1); Chloride 106 mmol/L (98-107); Creatinine, Serum 0.66 mg/dL (0.70-1.30); EST Glomerular Filtration Rate 133 mL/min (>60); Est Glom Filt Rate - Afr Amer 161 mL/min (>60); Estimated Creatinine Clearance 136.28 ml/min; Glucose 123 mg/dL (74-106); Potassium 4.2 mmol/L (3.5-5.1); Sodium Level 138 mmol/L (136-145)
[2022-06-22 08:00] LABS: Bedside Glucose 116 mg/dL (74-106)
[2022-06-22] MEDS: Glucerna Shake 120 ML LIQUID PO ×3 (08:32→16:50)
[2022-06-22] MEDS: Insulin U-500 UNITS/ML PEN 45 UNITS SC ×3 (08:32→16:51)
--- NOTE | 2022-06-22 10:33 | CASEMGMT ---
DEENA CM Readmission Note: Index: 06/05 thru 06/08/22 Dx: UTI, gastoenteritis, Sacral pressure ulcer stage 4, ION Readmission: 06/19/22 for UTI, N/V/D, ION, HyperK, dehyd, sacral pressure ulcers stage 4 Pt a paraplegic with chronic UTI's due neurogenic bladder/chronic mckinney, morbid obesity, DM II, HTN, HLD, ROX. Pt lives with his elderly mother who is in a wheelchair and pt's 16yo daughter. Pt with wound care needs at discharge. Multiple attempts to establish HHC were made but an accepting provider could not be secured. Pt stated his mother and daughter would be able to assist with dressing changes. Discussions related to SNF placement were had but due to financial concerns, this was declined. Pt was discharge to home. APS referral was made. Elida Serrano RN CM
[2022-06-22] MEDS: DAKIN'S SOL HALF STRENGTH (=0.25%) 1 APPLIC TOPICAL ×2 (10:36→21:47)
--- NOTE | 2022-06-22 10:47 | WOUNDNOTE ---
Pt had a medium soft brown stool. margo care provided. no stool noted in the wound. gloves changed. cleansed wound and periwound with soap and water. pt tolerated dressing change well.
[2022-06-22 11:55] LABS: Bedside Glucose 174 mg/dL (74-106)
[2022-06-22] MEDS: Senna/Docusate Sodium 1 Tablet 2 TABLET PO (12:16)
--- NOTE | 2022-06-22 12:25 | CASEMGMT ---
SW sent updates and IV antibiotic information to [facility] via [facility] [facility] [place]. SW asked [facility] to please start the pre-cert. Plan: d/c to [facility] pending insurance approval. Suyapa VASQUEZ
[2022-06-22] MEDS: 0.9% Saline Lock 10 ML Syringe IV (13:29)
[2022-06-22] MEDS: Lactated Ringers 1,000 ML 75 ML IV (13:31)
--- NOTE | 2022-06-22 14:26 | PCM.PN.HOSP ---
Subjective Subjective Feels well. Happy his daughter called. Objective Data Objective Data Vital Signs: Vital Signs Temp Pulse Resp BP Pulse Ox O2 Del Method FiO2 36.6 C 83 16 136/48 H 98 Room Air 35 06/22/22 09:32 06/22/22 09:32 06/22/22 09:32 06/22/22 09:32 06/22/22 09:32 06/22/22 14:03 06/22/22 07:20 Oxygen Delivery Method Room Air Weight: 174.5 kg Body Mass Index (BMI) 53.6 Intake & Output: Intake and Output for Last 24 Hours 06/20/22 06/21/22 06/22/22 23:59 23:59 23:59 Intake Total 3120.0 / 3520.0 4562.5 / 4562.5 2480.0 / 2480.0 Output Total 400 / 2200 01595 / 79046 2325 / 2325 Balance 2720.0 / 1320.0 -5437.5 / -5437.5 155.0 / 155.0 Lab / Micro Data Result Diagrams: 06/22/22 06:45 06/22/22 06:45 Labs: Laboratory Results - last 24 hr 06/21/22 16:31: POC Glucose 127 H 06/21/22 22:37: POC Glucose 129 H 06/22/22 06:45: WBC 5.9, RBC 3.34 L, Hgb 9.1 L, Hct 28.9 L, MCV 86.5, MCH 27.2, MCHC 31.5 L, RDW Std Deviation 49.2 H, RDW Coeff of Fei 15.7 H, Plt Count 324, MPV 8.8, Immature Gran % (Auto) 4.100 H, Neut % (Auto) 45.7 L, Lymph % (Auto) 25.6, [place] % (Auto) 8.4, Eos % (Auto) 15.7 H, Baso % (Auto) 0.5, Absolute Neuts (auto) 2.7, Absolute Lymphs (auto) 1.50, Nucleated RBC % 0 06/22/22 06:45: Sodium 138, Potassium 4.2, Chloride 106, Carbon Dioxide 25.0, Anion Gap 7, BUN 24 H, Creatinine 0.66 L, Estim Creat Clear Calc 136.28, Est GFR (MDRD) Af Amer 161, Est GFR (MDRD) Non-Af 133, BUN/Creatinine Ratio 36.1 H, Glucose 123 H, Calcium 9.6 06/22/22 07:07: POC Glucose 116 H 06/22/22 11:33: POC Glucose 174 H Micro: Microbiology 06/19/22 16:40 Blood Culture (Wb) - Left Hand Blood Culture - Preliminary No growth in 48 hours. 06/19/22 16:30 Blood Culture (Wb) - Right Hand Blood Culture - Preliminary No growth in 48 hours. 06/19/22 16:41 Urine Catheter - Garcia Urine Culture - Final Pseudomonas aeroginosa 06/19/22 19:12 Stool Stool Lactoferrin - Final 06/19/22 19:12 Stool Enteric Bacteriology - Final 06/19/22 19:12 Stool C. difficile GDH Antigen & Toxins - Final 06/19/22 19:12 Stool C. difficile DNA Amplification - Final Physical Exam Const alert and no apparent distress Constitutional Narrative: lying in bed. non-toxic. Psych affect normal Assessment & Plan Assessment/Plan (1) UTI (urinary tract infection): QUALIFIERS: Urinary tract infection type: catheter-associated UTI Indwelling urinary catheter type: indwelling urethral catheter Encounter type: initial encounter Qualified Code(s): T83.511A - Infection and inflammatory reaction due to indwelling urethral catheter, initial encounter; N39.0 - Urinary tract infection, site not specified PLAN: -Patient does have issues with chronic UTIs related to his paraplegia and intermittent cathing -Urine culture sent -We will utilize meropenem based on previous cultures and sensitivities -May need ID involvement depending on cultures results and sensitivities Catheter associated Culture showing Pseudomonas aeruginosa: Resistant to Cipro, sensitive gentamicin, imipenem and tobramycin. Patient will need to continue with meropenem through the 10th PICC line (2) Nausea, vomiting, and diarrhea: PLAN: Resolved (3) Acute kidney injury: PLAN: Resolved -Baseline serum creatinine is between 0.8 and 1 -Current serum creatinine is 2.18 -Patient appears markedly dehydrated -Aggressive IV fluids (4) Hyperkalemia: PLAN: No mention of hemolysis on report Kayexalate Resolved (5) Enteritis: PLAN: Resolved -Patient presented with abdominal pain/nausea/vomiting -CT of the abdomen pelvis showed features suggestive of acute infectious or inflammatory colitis at his last admission on 06/05 -Check enteric panel and C. difficile -Start meropenem -Clear liquid diet and advance as tolerated -Consider GI consult if symptoms do not resolve PLAN: Plan Chronic conditions: Chronic sacral decubitus -Consult wound care -Patient will likely need placement as his mother who is in her 80s is having difficulty helping care for him at home and his daughter 16 years old Debility -We will likely need placement at discharge -Case management consultation DM-2 -Patient is on U500 insulin but a decreased dose with ION and only utilizing a clear liquid diet for now -Hold home Trulicity -SSI -Accu-Cheks 3 times daily and at bedtime Hypertension -Hold home Lasix -Continue home amlodipine -Hold home hydrochlorothiazide -Would recommend complete discontinuation of hydrochlorothiazide at discharge as patient has ongoing issues with electrolyte disturbances and is already on Lasix -Will hold this hospitalization -As needed labetalol available for systolic greater than 160 Hyperlipidemia -Continue home statin Paraplegia -Patient is at baseline ROX -Nocturnal CPAP with 4 L bleed -Patient has home unit and okay to use Morbid obesity -Complicates treatment, prognosis, outcomes -BMI is 53.7 -Recommend weight loss DVT prophylaxis -Lovenox -SCDs CODE STATUS -Full code as per discussion on admission the emergency department Charges/Coding Visit Charges Inpatient E&M: 10566 Subs Hosp L1
--- NOTE | 2022-06-22 14:27 | PCM.TXEXTCAR ---
Diet Diet Order/Speech Therapy: 06/20/22 10:28 Diet: Consistent Carb - Calorie Controlled Type of Dietary Supplement:: Masood Is pt able to select menu?: Yes Diet Comments: fruit punch Masood w/ breakfast and dinner; extra 2oz protein w/ meals How many daily calories?: 2000 calorie Routine Orders/Code Status Code Status: Full Code Wound(s) buttocks: Wound Type: Pressure Injury sacrum: Wound Type: Pressure Injury Dressing Change: Dakins moistened gauze left lateral ankle: Wound Type: scarred healed pressure area Dressing Change: applied Mepilex dressing Therapies Physical Therapy: Eval and Treat Occupational Therapy: Eval and Treat Problem/Diagnosis (1) UTI (urinary tract infection): Status: Acute Code(s): N39.0 - Urinary tract infection, site not specified Plan: -Patient does have issues with chronic UTIs related to his paraplegia and intermittent cathing -Urine culture sent -We will utilize meropenem based on previous cultures and sensitivities -May need ID involvement depending on cultures results and sensitivities Catheter associated Culture showing Pseudomonas aeruginosa: Resistant to Cipro, sensitive gentamicin, imipenem and tobramycin. Patient will need to continue with meropenem through the 10th PICC line (2) Nausea, vomiting, and diarrhea: Status: Acute Code(s): R11.2 - Nausea with vomiting, unspecified; R19.7 - Diarrhea, unspecified Plan: Resolved (3) Acute kidney injury: Status: Acute Code(s): N17.9 - Acute kidney failure, unspecified Plan: Resolved -Baseline serum creatinine is between 0.8 and 1 -Current serum creatinine is 2.18 -Patient appears markedly dehydrated -Aggressive IV fluids (4) Hyperkalemia: Status: Acute Code(s): E87.5 - Hyperkalemia Plan: No mention of hemolysis on report Kayexalate Resolved (5) Enteritis: Status: Acute Code(s): K52.9 - Noninfective gastroenteritis and colitis, unspecified Plan: Resolved -Patient presented with abdominal pain/nausea/vomiting -CT of the abdomen pelvis showed features suggestive of acute infectious or inflammatory colitis at his last admission on 06/05 -Check enteric panel and C. difficile -Start meropenem -Clear liquid diet and advance as tolerated -Consider GI consult if symptoms do not resolve Plan Chronic conditions: Chronic sacral decubitus -Consult wound care -Patient will likely need placement as his mother who is in her 80s is having difficulty helping care for him at home and his daughter 16 years old Debility -We will likely need placement at discharge -Case management consultation DM-2 -Patient is on U500 insulin but a decreased dose with ION and only utilizing a clear liquid diet for now -Hold home Trulicity -SSI -Accu-Cheks 3 times daily and at bedtime Hypertension -Hold home Lasix -Continue home amlodipine -Hold home hydrochlorothiazide -Would recommend complete discontinuation of hydrochlorothiazide at discharge as patient has ongoing issues with electrolyte disturbances and is already on Lasix -Will hold this hospitalization -As needed labetalol available for systolic greater than 160 Hyperlipidemia -Continue home statin Paraplegia -Patient is at baseline ROX -Nocturnal CPAP with 4 L bleed -Patient has home unit and okay to use Morbid obesity -Complicates treatment, prognosis, outcomes -BMI is 53.7 -Recommend weight loss DVT prophylaxis -Lovenox -SCDs CODE STATUS -Full code as per discussion on admission the emergency department Allergies/Procedures Done in Hospital Allergies metformin Adverse Reaction (Unknown, Verified 06/05/22 14:05) Diarrhea Procedures: None Type of Care/Length of Stay Estimated LOS: Convalescent Care Less Than 30 days Type of Care Needed: Skilled Rehab Potential: Fair Prognosis: Fair Additional Orders/Day of Discharge Day of Discharge: 06/22/22 Dietary and Speech Recommendations Dietitian Recommendations/Changes: continue 2000 calorie controlled, consistent CHO diet; will add Masood BID w/ meals (fruit punch prefered) w/ additional 2 oz protein w/ meals for wound healing Discharge Plan Admission Admit Date/Time: 06/19/22 19:22 Primary Reason for Your Visit: UTI. ION. hyperkalemia Attending Provider: Garfield Pimentel Primary Care Provider: Jimmie Rand Consulting Providers: Samantha Bradford Discharge Orders/Prescriptions Prescriptions: New Glucerna 1.2 Stevie 0.06-1.2 gram-kcal/mL Liquid 120 ml PO TIDCM Qty: 0 0RF meropenem 1 gram Recon Soln 1 g IV Q12 5 Days Qty: 10 0RF sennosides-docusate sodium [Stool Softener-Stimulant Laxat] 8.6-50 mg Tablet 2 tab PO BID PRN PRN (Reason: Constipation) Qty: 0 0RF nystatin [Nyamyc] 100,000 unit/gram Powder 1 applic topical TID Qty: 0 0RF Protocol: *Topical Application Instructions APPLICATION INSTRUCTIONS: to folds, redness, under breast HySept 0.25 % Solution 1 applic topical BID Qty: 0 0RF Protocol: *Topical Application Instructions APPLICATION INSTRUCTIONS: Dakins moistened gauze dressings to sacral wound Continued acetaminophen 325 mg capsule 650 mg PO Q4H PRN (Reason: pain) Rx Instructions: do not exceed 4gm in 24 hrs multivitamin Tablet 1 tab PO DAILY gabapentin 400 mg capsule 400 mg PO 4X/DAY atorvastatin 20 mg tablet 20 mg PO QHS Latuda 60 mg Tablet 60 mg PO DINNER Rx Instructions: must administer with food (at least 350 calories) Artificial Tears([id number]) 1-0.2-0.2 % Drops 1 drp EACH EYE Q1H PRN (Reason: DRY EYES) Qty: 0 0RF doxazosin 1 mg tablet 1 mg PO QHS Rx Instructions: TAKE 1 TABLET BY MOUTH AT BEDTIME FOR BENIGN PROSTATIC HYPERPLASIA Trulicity 4.5 mg/0.5 mL pen injector 4.5 mg subcut FR Humulin R U-500 (Conc) Kwikpen 500 unit/mL (3 mL) insulin pen 60 unit subcut TIDCM (DME) compr.stocking,thigh,reg,large Misc See Dose Instructions .ROUTE .MEDSUPPLY Qty: 6 1RF Dose Instruction: As directed Rx Instructions: use daily for venous insufficiency 20-30 mmhg (DME) compress.stocking,knee,reg,lrg Misc See Rx Instructions .ROUTE .MEDSUPPLY Qty: 6 1RF Rx Instructions: Use Daily for venous insufficiency 20-30mmHg (DME) cpap mask See Rx Instructions .Route .MEDSUPPLY Qty: 1 0RF Rx Instructions: Use nightly (DME) Garcia Catheter 16 Fr misc See Rx Instructions .Route Qty: 1 0RF Rx Instructions: change every 4 weeks Changed furosemide 40 mg tablet 40 mg PO DAILY Qty: 60 1RF lisinopril 40 mg tablet 20 mg PO DAILY Qty: 90 0RF Discontinued potassium chloride 20 mEq tablet,ER particles/crystals 20 meq PO BID hydrochlorothiazide 25 mg tablet 25 mg PO DAILY Label Comments: TAKE 1 TABLET BY MOUTH EVERY DAY amlodipine 10 mg tablet 10 mg PO DAILY Qty: 90 1RF Referrals / Follow Up: Jimmie Rand MD [Primary Care Provider] - Within 2 Weeks Den Baez MD [Med Staff - Courtesy Staff] - 07/03/22 11:30 am Disposition Disposition (needs filled in before D/C Order can be placed): [facility] (1) UTI (urinary tract infection) Qualifiers: Urinary tract infection type: catheter-associated UTI Indwelling urinary catheter type: indwelling urethral catheter Encounter type: initial encounter Qualified Code(s): T83.511A - Infection and inflammatory reaction due to indwelling urethral catheter, initial encounter; N39.0 - Urinary tract infection, site not specified
[2022-06-22] MEDS: LURASIDONE HCL 20 MG TABLET 60 MG PO (16:51)
[2022-06-22 17:15] LABS: Bedside Glucose 117 mg/dL (74-106)
[2022-06-22] MEDS: Atorvastatin Calcium 20 MG Tablet PO (21:48)
[2022-06-22 23:40] LABS: Bedside Glucose 103 mg/dL (74-106)
[2022-06-23] VITALS (7 sets, daily range): BP systolic 114–147; BP diastolic 46–70; PULSE 65–87; RESP 17–18; TEMP 36.6–36.8; O2SAT 97–100
[2022-06-23] MEDS: Heparin Injection (Vial) 5,000 UNIT/ML VIAL 5000 UNIT SC ×2 (05:19→13:43)
[2022-06-23] MEDS: Nystatin Powder 15gm Bottle 1 APPLIC TOPICAL ×2 (05:20→13:44)
[2022-06-23] MEDS: Acetaminophen 325 MG Tablet 650 MG PO ×2 (08:00→12:36)
[2022-06-23 08:50] LABS: Bedside Glucose 128 mg/dL (74-106)
--- NOTE | 2022-06-23 09:17 | PCM.PN.HOSP ---
Subjective Subjective As well. No events. Objective Data Objective Data Vital Signs: Vital Signs Temp Pulse Resp BP Pulse Ox O2 Del Method FiO2 36.7 C 78 17 131/67 H 98 Room Air 35 06/23/22 03:20 06/23/22 07:00 06/23/22 03:25 06/23/22 03:20 06/23/22 07:30 06/23/22 08:04 06/23/22 03:25 Oxygen Delivery Method Room Air Weight: 174.5 kg Body Mass Index (BMI) 53.6 Intake & Output: Intake and Output for Last 24 Hours 06/21/22 06/22/22 06/23/22 23:59 23:59 23:59 Intake Total 4562.5 / 4562.5 2583.75 / 2583.75 120 / 120 Output Total 31030 / 17063 4175 / 4175 650 / 650 Balance -5437.5 / -5437.5 -1591.25 / -1591.25 -530 / -530 Lab / Micro Data Result Diagrams: 06/22/22 06:45 06/22/22 06:45 Labs: Laboratory Results - last 24 hr 06/22/22 11:33: POC Glucose 174 H 06/22/22 16:49: POC Glucose 117 H 06/22/22 22:00: POC Glucose 103 06/23/22 07:51: POC Glucose 128 H Micro: Microbiology 06/19/22 16:40 Blood Culture (Wb) - Left Hand Blood Culture - Preliminary No growth in 48 hours. 06/19/22 16:30 Blood Culture (Wb) - Right Hand Blood Culture - Preliminary No growth in 48 hours. 06/19/22 16:41 Urine Catheter - Garcia Urine Culture - Final Pseudomonas aeroginosa 06/19/22 19:12 Stool Stool Lactoferrin - Final 06/19/22 19:12 Stool Enteric Bacteriology - Final 06/19/22 19:12 Stool C. difficile GDH Antigen & Toxins - Final 06/19/22 19:12 Stool C. difficile DNA Amplification - Final Physical Exam Const alert and no apparent distress Resp normal respiratory effort, no retractions, no use of accessory muscles and clear to auscultation bilaterally Cardio regular rate, regular rhythm, S1 normal heart sound and S2 normal heart sound GI normal to inspection, nondistended, normoactive bowel sounds, soft to palpation, non-tender and non-distended Assessment & Plan Assessment/Plan (1) UTI (urinary tract infection): QUALIFIERS: Encounter type: initial encounter Indwelling urinary catheter type: indwelling urethral catheter Urinary tract infection type: catheter-associated UTI Qualified Code(s): T83.511A - Infection and inflammatory reaction due to indwelling urethral catheter, initial encounter; N39.0 - Urinary tract infection, site not specified PLAN: Catheter associated -Patient does have issues with chronic UTIs related to his paraplegia and intermittent cathing -Urine culture sent -We will utilize meropenem based on previous cultures and sensitivities -May need ID involvement depending on cultures results and sensitivities Catheter associated Culture showing Pseudomonas aeruginosa: Resistant to Cipro, sensitive gentamicin, imipenem and tobramycin. Patient will need to continue with meropenem through the 10th PICC line Change catheter (2) Nausea, vomiting, and diarrhea: PLAN: Resolved (3) Acute kidney injury: PLAN: Resolved -Baseline serum creatinine is between 0.8 and 1 Secondary to prerenal azotemia (4) Hyperkalemia: PLAN: No mention of hemolysis on report Kayexalate Resolved (5) Enteritis: PLAN: Resolved -Patient presented with abdominal pain/nausea/vomiting -CT of the abdomen pelvis showed features suggestive of acute infectious or inflammatory colitis at his last admission on 06/05 -Check enteric panel and C. difficile -Start meropenem -Clear liquid diet and advance as tolerated -Consider GI consult if symptoms do not resolve PLAN: Plan Chronic conditions: Chronic sacral decubitus -Consult wound care -Patient will likely need placement as his mother who is in her 80s is having difficulty helping care for him at home and his daughter 16 years old Debility -We will likely need placement at discharge -Case management consultation DM-2 -Patient is on U500 insulin but a decreased dose with ION and only utilizing a clear liquid diet for now -Hold home Trulicity -SSI -Accu-Cheks 3 times daily and at bedtime Hypertension -Hold home Lasix -Continue home amlodipine -Hold home hydrochlorothiazide -Would recommend complete discontinuation of hydrochlorothiazide at discharge as patient has ongoing issues with electrolyte disturbances and is already on Lasix -Will hold this hospitalization -As needed labetalol available for systolic greater than 160 Hyperlipidemia -Continue home statin Paraplegia -Patient is at baseline ROX -Nocturnal CPAP with 4 L bleed -Patient has home unit and okay to use Morbid obesity -Complicates treatment, prognosis, outcomes -BMI is 53.7 -Recommend weight loss DVT prophylaxis -Lovenox -SCDs CODE STATUS -Full code as per discussion on admission the emergency department Discharge to [facility]
[2022-06-23] MEDS: Insulin U-500 UNITS/ML PEN 45 UNITS SC ×2 (09:20→11:47)
[2022-06-23] MEDS: Glucerna Shake 120 ML LIQUID PO ×2 (09:20→11:46)
--- NOTE | 2022-06-23 10:26 | CASEMGMT ---
SW sent cpap settings to [facility]. Suyapa Barajas MSW CHRISTINA
[2022-06-23] MEDS: Senna/Docusate Sodium 1 Tablet 2 TABLET PO (11:05)
[2022-06-23] MEDS: DAKIN'S SOL HALF STRENGTH (=0.25%) 1 APPLIC TOPICAL (11:06)
[2022-06-23] MEDS: Insulin Lispro 100 UNIT/ML INSULN.PEN SC (11:46)
--- NOTE | 2022-06-23 12:14 | CASEMGMT ---
Patient was approved for [facility]. SW completed 7000 in [employer]. EDGAR arranged for patient to get picked up at 1500 via cot by physicians. Patient has an IV antibiotic running until 2ish. EDGAR sent orders and miner pick time to [facility] via [employer]. EDGAR notified RN, battery recharger, and corporation secretary. EDGAR spoke with patient and he was aware. EDGAR asked if he could have family bring in his Latuda for the group home and he said he can. He said someone will also bring in his cpap machine. EDGAR did let him know EDGAR told them to order one for him and sent his settings. Patient wanted to make sure he had a bowel regimen ordered. He also said when his dressings are changed it will need debrided. EDGAR spoke with DEENA PRASAD and we reviewed patient's orders. Patient does have a bowel regimen ordered. DEENA PRASAD indicated only a physician would do bedside debridement so patient will need to follow up with his wound doctor. Plan: d/c to [facility] under skilled level of care. Physicians will transport via cot. Suyapa VASQUEZ
--- NOTE | 2022-06-23 12:15 | NURSING ---
Report called to Verna SHAFFER at [facility]. Pt has a fiber picker time of 15:00.
[2022-06-23 12:20] LABS: Bedside Glucose 178 mg/dL (74-106)
--- NOTE | 2022-06-23 12:45 | PCM.DC.SUM ---
Providers Date of Admission: 06/19/22 Primary Care Physician: Dr. Jimmie Rand MD Consultations 06/19/22 19:58 Consult: Onc/Wound/theatrical scenic designer Routine Comment: Reason For Visit: UTI WITH N/V/D Diagnosis Discharge Diagnosis (1) UTI (urinary tract infection): Status: Acute Code(s): N39.0 - Urinary tract infection, site not specified Qualifiers: Urinary tract infection type: catheter-associated UTI Indwelling urinary catheter type: indwelling urethral catheter Encounter type: initial encounter Qualified Code(s): T83.511A - Infection and inflammatory reaction due to indwelling urethral catheter, initial encounter; N39.0 - Urinary tract infection, site not specified Plan: Catheter associated -Patient does have issues with chronic UTIs related to his paraplegia and intermittent cathing -Urine culture sent -We will utilize meropenem based on previous cultures and sensitivities -May need ID involvement depending on cultures results and sensitivities Catheter associated Culture showing Pseudomonas aeruginosa: Resistant to Cipro, sensitive gentamicin, imipenem and tobramycin. Patient will need to continue with meropenem through the 10th PICC line Change catheter (2) Nausea, vomiting, and diarrhea: Status: Acute Code(s): R11.2 - Nausea with vomiting, unspecified; R19.7 - Diarrhea, unspecified Plan: Resolved (3) Acute kidney injury: Status: Acute Code(s): N17.9 - Acute kidney failure, unspecified Plan: Resolved -Baseline serum creatinine is between 0.8 and 1 Secondary to prerenal azotemia (4) Hyperkalemia: Status: Acute Code(s): E87.5 - Hyperkalemia Plan: No mention of hemolysis on report Kayexalate Resolved (5) Enteritis: Status: Acute Code(s): K52.9 - Noninfective gastroenteritis and colitis, unspecified Plan: Resolved -Patient presented with abdominal pain/nausea/vomiting -CT of the abdomen pelvis showed features suggestive of acute infectious or inflammatory colitis at his last admission on 06/05 -Check enteric panel and C. difficile -Start meropenem -Clear liquid diet and advance as tolerated -Consider GI consult if symptoms do not resolve Plan Chronic conditions: Chronic sacral decubitus -Consult wound care -Patient will likely need placement as his mother who is in her 80s is having difficulty helping care for him at home and his daughter 16 years old Debility -We will likely need placement at discharge -Case management consultation DM-2 -Patient is on U500 insulin but a decreased dose with ION and only utilizing a clear liquid diet for now -Hold home Trulicity -SSI -Accu-Cheks 3 times daily and at bedtime Hypertension -Hold home Lasix -Continue home amlodipine -Hold home hydrochlorothiazide -Would recommend complete discontinuation of hydrochlorothiazide at discharge as patient has ongoing issues with electrolyte disturbances and is already on Lasix -Will hold this hospitalization -As needed labetalol available for systolic greater than 160 Hyperlipidemia -Continue home statin Paraplegia -Patient is at baseline ROX -Nocturnal CPAP with 4 L bleed -Patient has home unit and okay to use Morbid obesity -Complicates treatment, prognosis, outcomes -BMI is 53.7 -Recommend weight loss DVT prophylaxis -Lovenox -SCDs CODE STATUS -Full code as per discussion on admission the emergency department Discharge to [facility] Medications at Discharge Home Medications compr.stocking,thigh,reg,large #6 ea 11/11/20 compress.stocking,knee,reg,lrg #6 ea 11/12/20 cpap mask #1 ea 07/14/21 atorvastatin 20 mg tablet 20 mg PO QHS cholesterol lowering 08/29/21 acetaminophen 325 mg capsule 650 mg PO Q4H PRN pain 02/28/22 gabapentin 400 mg capsule 400 mg PO 4X/DAY nerve pain 02/28/22 multivitamin 1 tab PO DAILY supplement 02/28/22 catheter 16 Fr (Garcia Catheter) #1 ea 04/03/22 lurasidone 60 mg tablet (Latuda) 60 mg PO DINNER depression 04/12/22 peg [id number] 1 %-0.2 %-0.2 % eye drops (Artificial Tears ([id number])) 1 drp EACH EYE Q1H PRN DRY EYES #0 mL 04/14/22 doxazosin 1 mg tablet 1 mg PO QHS PROSTATE 06/05/22 dulaglutide 4.5 mg/0.5 mL subcutaneous pen injector (Trulicity) 4.5 mg subcut FR blood sugar 06/05/22 insulin regular hum U-500 conc 500 unit/mL(3 mL) subcut pen (Humulin R U-500 (Conc) Insulin Kwikpen) 60 unit subcut TIDCM dm 06/19/22 furosemide 40 mg tablet 40 mg PO DAILY ADEMA #60 tabs 06/22/22 lisinopril 40 mg tablet 20 mg PO DAILY BP #90 tabs 06/22/22 meropenem 1 gram intravenous solution 1 g IV Q12 5 days #10 ea 06/22/22 nutrition tx glu intol,lac-free,soy-fiber 0.06 gram-1.2 kcal/mL liquid (Glucerna 1.2 Stevie) 120 ml PO TIDCM #0 mL 06/22/22 nystatin 100,000 unit/gram topical powder (Nyamyc) 1 applic topical TID #0 grams 06/22/22 sennosides 8.6 mg-docusate sodium 50 mg tablet (Stool Softener-Stimulant Laxative) 2 tab PO BID PRN PRN Constipation #0 tabs 06/22/22 sodium hypochlorite 0.25 % solution (HySept) 1 applic topical BID #0 mL 06/22/22 Hospital Course Operations None Procedures PICC line placement Summary of Care Provided Minutes Spent on Discharge: 28 Weight / BMI Weight Weight: 174.5 kg Body Mass Index (BMI) 53.6 ABG / Lab / Microbiology Data Result Diagrams: 06/22/22 06:45 06/22/22 06:45 Laboratory: Laboratory Results - last 24 hr 06/22/22 16:49: POC Glucose 117 H 06/22/22 22:00: POC Glucose 103 06/23/22 07:51: POC Glucose 128 H 06/23/22 11:39: POC Glucose 178 H Microbiology: Microbiology 06/19/22 16:40 Blood Culture (Wb) - Left Hand Blood Culture - Preliminary No growth in 48 hours. 06/19/22 16:30 Blood Culture (Wb) - Right Hand Blood Culture - Preliminary No growth in 48 hours. 06/19/22 16:41 Urine Catheter - Garcia Urine Culture - Final Pseudomonas aeroginosa 06/19/22 19:12 Stool Stool Lactoferrin - Final 06/19/22 19:12 Stool Enteric Bacteriology - Final 06/19/22 19:12 Stool C. difficile GDH Antigen & Toxins - Final 06/19/22 19:12 Stool C. difficile DNA Amplification - Final Meaningful Use Info Meaningful Use Diagnoses (Choose all that apply): None applicable Discharge Plan Admission Admit Date/Time: 06/19/22 19:22 Primary Reason for Your Visit: UTI. ION. hyperkalemia Attending Provider: Garfield Pimentel Primary Care Provider: Jimmie Rand Consulting Providers: Samantha Bradford Discharge Orders/Prescriptions Prescriptions: New Glucerna 1.2 Stevie 0.06-1.2 gram-kcal/mL Liquid 120 ml PO TIDCM Qty: 0 0RF meropenem 1 gram Recon Soln 1 g IV Q12 5 Days Qty: 10 0RF sennosides-docusate sodium [Stool Softener-Stimulant Laxat] 8.6-50 mg Tablet 2 tab PO BID PRN PRN (Reason: Constipation) Qty: 0 0RF nystatin [Nyamyc] 100,000 unit/gram Powder 1 applic topical TID Qty: 0 0RF Protocol: *Topical Application Instructions APPLICATION INSTRUCTIONS: to folds, redness, under breast HySept 0.25 % Solution 1 applic topical BID Qty: 0 0RF Protocol: *Topical Application Instructions APPLICATION INSTRUCTIONS: Dakins moistened gauze dressings to sacral wound Continued acetaminophen 325 mg capsule 650 mg PO Q4H PRN (Reason: pain) Rx Instructions: do not exceed 4gm in 24 hrs multivitamin Tablet 1 tab PO DAILY gabapentin 400 mg capsule 400 mg PO 4X/DAY atorvastatin 20 mg tablet 20 mg PO QHS Latuda 60 mg Tablet 60 mg PO DINNER Rx Instructions: must administer with food (at least 350 calories) Artificial Tears([id number]) 1-0.2-0.2 % Drops 1 drp EACH EYE Q1H PRN (Reason: DRY EYES) Qty: 0 0RF doxazosin 1 mg tablet 1 mg PO QHS Rx Instructions: TAKE 1 TABLET BY MOUTH AT BEDTIME FOR BENIGN PROSTATIC HYPERPLASIA Trulicity 4.5 mg/0.5 mL pen injector 4.5 mg subcut FR Humulin R U-500 (Conc) Kwikpen 500 unit/mL (3 mL) insulin pen 60 unit subcut TIDCM (DME) compr.stocking,thigh,reg,large Misc See Dose Instructions .ROUTE .MEDSUPPLY Qty: 6 1RF Dose Instruction: As directed Rx Instructions: use daily for venous insufficiency 20-30 mmhg (DME) compress.stocking,knee,reg,lrg Misc See Rx Instructions .ROUTE .MEDSUPPLY Qty: 6 1RF Rx Instructions: Use Daily for venous insufficiency 20-30mmHg (DME) cpap mask See Rx Instructions .Route .MEDSUPPLY Qty: 1 0RF Rx Instructions: Use nightly (DME) Garcia Catheter 16 Fr misc See Rx Instructions .Route Qty: 1 0RF Rx Instructions: change every 4 weeks Changed furosemide 40 mg tablet 40 mg PO DAILY Qty: 60 1RF lisinopril 40 mg tablet 20 mg PO DAILY Qty: 90 0RF Discontinued potassium chloride 20 mEq tablet,ER particles/crystals 20 meq PO BID hydrochlorothiazide 25 mg tablet 25 mg PO DAILY Label Comments: TAKE 1 TABLET BY MOUTH EVERY DAY amlodipine 10 mg tablet 10 mg PO DAILY Qty: 90 1RF Referrals / Follow Up: Jimmie Rand MD [Primary Care Provider] - Within 2 Weeks Den Baez MD [Med Staff - Courtesy Staff] - 07/03/22 11:30 am Disposition Disposition (needs filled in before D/C Order can be placed): [facility] Facility Charges/Coding Visit Charges Inpatient E&M: 16580 Disch Hosp
[2022-06-23] MEDS: 0.9% Saline Lock 10 ML Syringe IV (14:46)
== END 2022-06-23 15:00 | DRG 466 ==
LOC: ED 17:52 → PCU 19:35
PROVIDERS: Admitting Provider Internal Medicine; Emergency Provider Emergency Medicine; PCP Internal Medicine
DX: T83.511A Infection and inflammatory reaction due to indwelling urethral catheter, initial encounter (principal); L89.154 Pressure ulcer of sacral region, stage 4; N17.9 Acute kidney failure, unspecified; G82.20 Paraplegia, unspecified; Z68.43 Body mass index [BMI] 50.0-59.9, adult; E11.42 Type 2 diabetes mellitus with diabetic polyneuropathy; A09 Infectious gastroenteritis and colitis, unspecified; B96.5 Pseudomonas (aeruginosa) (mallei) (pseudomallei) as the cause of diseases classified elsewhere; Z79.4 Long term (current) use of insulin; E66.01 Morbid (severe) obesity due to excess calories; E86.0 Dehydration; E78.5 Hyperlipidemia, unspecified; I10 Essential (primary) hypertension; G47.33 Obstructive sleep apnea (adult) (pediatric); E87.5 Hyperkalemia; X58.XXXA Exposure to other specified factors, initial encounter; N39.0 Urinary tract infection, site not specified; R53.81 Other malaise; Z79.899 Other long term (current) drug therapy; Z87.891 Personal history of nicotine dependence
CPT/HCPCS: 36415; 36569; 80048; 80053; 80076; 81001; 82962; 83605; 83630; 83735; 84100; 85025; 87040; 87077; 87086; 87088; 87177; 87186; 87209; 87493; 87506; 93005; 94660; 94762; 97802; 99252; 99285; J2185; J7030; J7120; A4216; G0463; J2405

== ENCOUNTER → 2022-06-27 | Outpatient (REF) | payer MEDICAID, SELFPAY ==
[2022-06-27 09:15] LABS: Hematocrit 31.8 % (40-54); Hemoglobin 9.8 g/dL (13.0-16.5); Mean Corp Hgb Conc 30.8 g/dL (32-36); Mean Corpuscular Hgb 27.6 pg (27.0-32.0); Mean Corpuscular Volume 89.6 fL (80-94); Mean Platelet Vol. 9.4 fl (6.2-12.0); Platelet Count 371 K/mm3 (150-450); RBC Distribution Width CV 16.2 % (11.6-14.6); RBC Distribution Width SD 52.6 fl (35.1-43.9); Red Blood Count 3.55 M/mm3 (4.6-6.2); White Blood Count 8.4 K/mm3 (4.4-11.0)
[2022-06-27 09:28] LABS: Anion Gap 9 (5-15); BUN 21 mg/dL (7-18); BUN/Creat Ratio 31.7 RATIO (10-20); Calcium,Total 9.8 mg/dL (8.5-10.1); Chloride 106 mmol/L (98-107); Cholesterol 91 mg/dL (200); Creatinine, Serum 0.66 mg/dL (0.70-1.30); EST Glomerular Filtration Rate 133 mL/min (>60); Est Glom Filt Rate - Afr Amer 161 mL/min (>60); Glucose 122 mg/dL (74-106); High Density Lipoprotein 27 mg/dL; Potassium 4.2 mmol/L (3.5-5.1); Sodium Level 139 mmol/L (136-145); Triglycerides 166 mg/dL; Very Low Density Lipoprotein 33 mg/dL (5-40)
== END | disposition home or self-care (01) ==
LOC: OLS.SW 05:00
PROVIDERS: PCP Internal Medicine; Visit Provider Family Medicine
DX: B99.9 Unspecified infectious disease (principal); Z79.899 Other long term (current) drug therapy
CPT/HCPCS: 36415; 80048; 80061; 85027

== ENCOUNTER 2022-07-07 09:51 | Outpatient (RCR) | payer MEDICAID, SELFPAY ==
[2022-04-18 00:05] VITALS: BP 107/59; PULSE 96; RESP 16; TEMP 36.4
[2022-07-07 10:23] VITALS: BP 67/26; PULSE 97; RESP 18; TEMP 36.8
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
== END 2022-07-18 23:59 | disposition home or self-care (01) ==
LOC: WC 09:51
PROVIDERS: PCP Internal Medicine; Visit Provider Family Medicine
DX: L89.154 Pressure ulcer of sacral region, stage 4 (principal); G82.20 Paraplegia, unspecified; E11.622 Type 2 diabetes mellitus with other skin ulcer; E11.42 Type 2 diabetes mellitus with diabetic polyneuropathy; E66.01 Morbid (severe) obesity due to excess calories; I10 Essential (primary) hypertension; E78.5 Hyperlipidemia, unspecified; N39.42 Incontinence 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
CPT/HCPCS: 11043; 11046; 87070; 87075; 87077; 87186; 87205; G0463; 99213

== ENCOUNTER 2022-07-09 10:15 | Inpatient (IN) | payer MEDICAID, SELFPAY ==
[2022-07-09 10:17] VITALS: BP 90/60; PULSE 98; RESP 16; TEMP 37.1; O2SAT 97; BMI 51.7
[2022-07-09 10:20] VITALS: BP 90/60; PULSE 98; RESP 17; TEMP 37.1; O2SAT 97
--- NOTE | 2022-07-09 10:54 | EX.ED.DYSGE1 ---
HPI History of Present Illness Chief Complaint: Wound Narrative Narrative: 52-year-old male presenting with diarrhea patient has a history of diarrhea and was recently hospitalized with colitis. He also had a UTI which grew out Pseudomonas. Patient is a paraplegic and cannot care for himself. He lives at home with his mother currently who is caring for him. He states he does not want his mother to have to care for him and he is having diarrhea which started last night. Patient states that he had recent hospitalization for UTI and colitis. He was eventually discharged to a nursing facility and states that his Medicare ran out and he was discharged home. He has weekly home health care. He states that on the he stopped taking meropenem. On the he was discharged back to his home. His mother has been taking care of him. He states he has been having formed stools. He denies nausea or vomiting. He is not having significant abdominal pain. He denies fever or chills. Patient states that he was seen by the wound care clinic on the and had his sacral decubitus ulcer debrided. [facility] Medical History Acute respiratory failure, unspecified whether with hypoxia or hypercapnia Alcohol abuse Anemia Anemia Anxiety and depression Anxiety disorder Bacteremia due to Enterococcus Avelar's palsy Biceps tendonitis on left Blister (nonthermal), right foot, initial encounter Chronic ulcer of right foot with fat layer exposed CPAP (continuous positive airway pressure) dependence Debility Decubitus ulcer of sacral region, stage 4 Decubitus ulcer, buttock Depression Diabetes DVT (deep venous thrombosis) Edema of both lower extremities Essential (primary) hypertension Former smoker Headache Hemoglobin A1c 8.0% or greater History of foot ulcer History of stress test history of tooth removal Hyperlipidemia Incontinence 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 Inflammation of joint of left shoulder region Insomnia 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) 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 Morbid (severe) obesity due to excess calories Neuromuscular dysfunction of bladder, unspecified Neuropathic pain Obesities, morbid Obstructive sleep apnea On home oxygen therapy Osteoporosis Other seasonal allergic rhinitis Paraplegia Pressure sore of left ischium, unstageable Pressure ulcer Pressure ulcer of left buttock, unstageable Pressure ulcer of right buttock, unstageable Pressure ulcer of sacral region, unstageable Primary osteoarthritis, left shoulder Sacral ulcer Sacral wound Self-catheterizes urinary bladder Sepsis Skin necrosis Skin ulcer of left hip Skin ulcer of right hip Sleep apnea Stage II pressure ulcer Stage II pressure ulcer of buttock Type 2 diabetes mellitus with diabetic polyneuropathy Wound infection Home Medications atorvastatin 20 mg tablet 40 mg PO QHS cholesterol lowering 08/29/21 [History Last Taken 07/08/22] acetaminophen 325 mg capsule 650 mg PO Q4H PRN pain 02/28/22 [History Last Taken 07/09/22] gabapentin 400 mg capsule 400 mg PO 4X/DAY nerve pain 02/28/22 [History Last Taken 07/08/22] multivitamin 1 tab PO DAILY supplement 02/28/22 [History Last Taken 07/08/22] lurasidone 60 mg tablet (Latuda) 60 mg PO DINNER depression 04/12/22 [History Last Taken 07/08/22] peg [id number] 1 %-0.2 %-0.2 % eye drops (Artificial Tears ([id number])) 1 drp EACH EYE Q1H PRN DRY EYES #0 mL 04/14/22 [Rx Last Taken 1 Week Ago ~07/02/22] doxazosin 1 mg tablet 1 mg PO QHS PROSTATE 06/05/22 [History Last Taken 07/08/22] dulaglutide 4.5 mg/0.5 mL subcutaneous pen injector (Trulicity) 4.5 mg subcut FR blood sugar 06/05/22 [History Last Taken 07/07/22] furosemide 40 mg tablet 40 mg PO DAILY ADEMA #60 tabs 06/22/22 [Rx Last Taken 07/08/22] lisinopril 40 mg tablet 20 mg PO DAILY BP #90 tabs 06/22/22 [Rx Last Taken 07/08/22] insulin regular hum U-500 conc 500 unit/mL(3 mL) subcut pen (Humulin R U-500 (Conc) Insulin Kwikpen) 55 unit (0.11 mL) subcut TIDCM dm #30 mL 07/03/22 [Rx Last Taken 07/08/22] docusate sodium 100 mg capsule 100 mg PO DAILY BM 07/09/22 [History Last Taken 07/08/22] Allergy/AdvReac Type Severity Reaction Status Date / Time metformin AdvReac Unknown Diarrhea Verified 06/05/22 14:05 Family History Father Heart disease Myocardial infarction, Onset Age: 64 Hyperlipemia Mother Heart disease Hypertension Hyperlipemia Uncle Heart disease Grandfather Diabetes Grandmother Diabetes Surgical History History of back surgery Social History Smoking Status: Never smoker alcohol intake: former substance use type: does not use what type of physical activity do you participate in: none EXAM Physical Exam Const Vital Signs: 07/09/22 10:17 07/09/22 10:20 Temperature 98.8 F 98.8 F Temperature Source Oral Oral Pulse Rate 98 98 Respiratory Rate 16 17 Blood Pressure 90/60 90/60 Blood Pressure Mean 70 70 Pulse Ox 97 97 Oxygen Delivery Method Room Air Room Air Positive obese General Appearance ED: NAD; Negative for pallor Nutritional Appearance: obese HEENT Negative for trauma Eyes PERRL and EOMs intact bilaterally General Eye ED: Negative for pale conjunctiva or scleral icterus Chest Wall inspection of chest normal and palpation of chest normal Resp normal respiratory effort and clear to auscultation bilaterally Auscultation: Negative for rales, rhonchi or wheezes Cardio regular rate and regular rhythm GI normal to inspection, nondistended, normoactive bowel sounds Narrative: Patient buttocks and lower back soiled with stool. Neuro oriented x3 and CN's II-XII intact bilaterally Psych mental status grossly normal Skin Skin Narrative: Large stage IV sacral decubitus ulcer with dressing in place partially. Unable to pull this up and examine his packing and it is filled with stool. General Skin Exam: Negative for jaundice or pallor MDM MDM MDM Narrative Medical decision making narrative: Patient presenting with 1 day of diarrhea status post having colitis and admission for this. He states he had been making formed stools until yesterday. Patient states he has been eating and drinking normally. He denies fever. Differential at this time includes viral colitis, C. difficile colitis, GI bleed, dehydration, ION, UTI, worsening sacral decubitus shoulder, cellulitis. Abdominal exam is benign so do not believe he needs a CT scan. CBC to assess white blood cell count, differential, hemoglobin. White blood cell count is normal at 9.7. Hemoglobin slightly lower than previous at 7.4. I will send for an occult stool and we will attempt to obtain stool studies given his diarrhea. CMP shows moderate elevation in his AST at 51, ALT 98, alk phos is 206 these are mild elevations in the nonspecific. GFR today is 26 and creatinine is 2.74 which is acutely changed. Previous creatinine on the was 0.66 GFR at at that time does show he was greater than 60. This does represent acute kidney injury. Also included in differential now with low hemoglobin is a GI bleed. His BUN/creatinine ratio is slightly elevated at 23.7, however his BUN is very high which does support possible GI bleed. Again occult testing is ordered. Patient was typed and screened. Glucose today is 201 without anion gap. Potassium slightly elevated at 5.9. Patient is ordered a second liter of IV fluids for ION and hyperkalemia. I do not believe needs other medications at this point. Rectal catheter was placed so that the patient could get cleaned up and that he would not defecate into his wound on his sacral decubitus ulcer. Patient was cleaned. It does appear to be very irritated and possibly cellulitic around the sacral decubitus ulcer as well as down into the gluteal region. I discussed the case with Dr. Abbott it is likely he will need this debrided. Stool was positive for occult blood. Patient was typed and screened. Stool studies were collected and sent. Discussed with hospitalist for admission. Impression: 1. Debility 2. Acute blood loss anemia 3. Diarrhea 4. Hyperkalemia 5. ION 6. Cellulitis 7. Worsening sacral decubitus ulcer Lab Data Labs: Laboratory Results - last 24 hr 07/09/22 07/09/22 07/09/22 10:25 10:25 12:35 WBC 9.7 RBC 2.79 L Hgb 7.4 L Hct 24.3 L MCV 87.1 MCH 26.5 L MCHC 30.5 L RDW Std Deviation 54.5 H RDW Coeff of Fei 17.1 H Plt Count 349 MPV 9.5 Immature Gran % (Auto) 0.600 Neut % (Auto) 76.6 H Lymph % (Auto) 12.9 L [place] % (Auto) 6.8 Eos % (Auto) 2.7 Baso % (Auto) 0.4 Absolute Neuts (auto) 7.4 Absolute Lymphs (auto) 1.25 Nucleated RBC % 0 Sodium 134 L Potassium 5.9 H Chloride 105 Carbon Dioxide 21.0 Anion Gap 8 BUN 65 H Creatinine 2.74 H Estim Creat Clear Calc 33.83 Est GFR (MDRD) Af Amer 31 L Est GFR (MDRD) Non-Af 26 L BUN/Creatinine Ratio 23.7 H Glucose 201 H Calcium 9.6 Total Bilirubin 0.30 AST 51 H ALT 98 H Alkaline Phosphatase 206 H Total Protein 6.9 Albumin 2.0 L Globulin 4.9 H Albumin/Globulin Ratio 0.4 L Blood Type O POSITIVE Antibody Screen NEGATIVE Discharge Plan Triage Chief Complaint: Wound ED Provider: Jose Alfredo Jacobs Dx/Rx/DC Orders Primary Care Provider: Jimmie Rand
[2022-07-09] MEDS: 0.9% Normal Saline 1,000 ML 1000 ML IV (11:00)
[2022-07-09 11:02] LABS: Absolute Lymphocyte Count 1.25 X10^3/uL (0.83-4.51); Absolute Neutrophil Count 7.4 X10^3/uL (2.0-7.7); Basophil# 0.04 X10^3/uL; Basophil% 0.4 % (0-1); Eosinophil# 0.26 X10^3/uL; Eosinophils% 2.7 % (0-5); Hematocrit 24.3 % (40-54); Hemoglobin 7.4 g/dL (13.0-16.5); Lymphocyte # 1.25 X10^3/ul (0.83-4.51); Lymphocyte % 12.9 % (19-41); Mean Corp Hgb Conc 30.5 g/dL (32-36); Mean Corpuscular Hgb 26.5 pg (27.0-32.0); Mean Corpuscular Volume 87.1 fL (80-94); Mean Platelet Vol. 9.5 fl (6.2-12.0); Monocyte# 0.66 X10^3/uL; Monocyte% 6.8 % (0-10); NRBC Flagged by Analyzer 0 % (0-5); Neutrophil # 7.39 X10^3/uL (2.7-7.7); Neutrophil % 76.6 % (47-70); Platelet Count 349 K/mm3 (150-450); RBC Distribution Width CV 17.1 % (11.6-14.6); RBC Distribution Width SD 54.5 fl (35.1-43.9); Red Blood Count 2.79 M/mm3 (4.6-6.2); White Blood Count 9.7 K/mm3 (4.4-11.0)
[2022-07-09 11:24] LABS: ALB/GLOB Ratio 0.4 RATIO (0.9-2.4); AST(SGOT) 51 U/L (15-37); Alanine Aminotransfer ALT/SGPT 98 U/L (16-61); Alkaline Phosphatase 206 U/L (45-117); Anion Gap 8 (5-15); BUN 65 mg/dL (7-18); BUN/Creat Ratio 23.7 RATIO (10-20); Calcium,Total 9.6 mg/dL (8.5-10.1); Chloride 105 mmol/L (98-107); Creatinine, Serum 2.74 mg/dL (0.70-1.30); EST Glomerular Filtration Rate 26 mL/min (>60); Est Glom Filt Rate - Afr Amer 31 mL/min (>60); Estimated Creatinine Clearance 33.83 ml/min; Globulin 4.9 g/dL (2.2-4.2); Glucose 201 mg/dL (74-106); Potassium 5.9 mmol/L (3.5-5.1); Protein, Total 6.9 g/dL (6.4-8.2); Sodium Level 134 mmol/L (136-145)
[2022-07-09] MEDS: 0.9% Normal Saline 1,000 ML 999 ML IV (12:21)
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
[2022-07-09 13:36] VITALS: BP 119/97; PULSE 68; RESP 14; O2SAT 98
[2022-07-09 14:59] VITALS: BP 116/48; PULSE 89; RESP 14; TEMP 36.6; O2SAT 96
[2022-07-09 15:34] VITALS: BMI 50.9
[2022-07-09 15:36] VITALS: BP 104/57; PULSE 99; RESP 18; TEMP 37.1; O2SAT 98
[2022-07-09] MEDS: 0.9% Normal Saline 1,000 ML 125 ML IV (16:16)
[2022-07-09] MEDS: Insulin Lispro 100 UNIT/ML INSULN.PEN SC ×2 (16:16→22:24)
[2022-07-09] MEDS: LURASIDONE HCL 20 MG TABLET 60 MG PO (16:17)
[2022-07-09] MEDS: Heparin Injection (Vial) 5,000 UNIT/ML VIAL 5000 UNIT SC ×2 (16:17→22:43)
[2022-07-09 16:24] LABS: Hematocrit 27.3 % (40-54); Hemoglobin 8.4 g/dL (13.0-16.5)
[2022-07-09 16:31] LABS: Bedside Glucose 166 mg/dL (74-106)
--- NOTE | 2022-07-09 19:55 | CON.PCM.SX_ITS ---
Assessment & Plan Assessment/Plan (1) Decubitus ulcer of sacral region, stage 4: (2) Paraplegia: (3) Morbid (severe) obesity due to excess calories: (4) Incontinence 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: PLAN: Plan Wound care- with daskins to ulcer--will continue monitor wound--may require our debridement. Patient previously had debridement Dr. Borrego 03/2022. Will d/w Dr. Borrego tomorrow. Pt would be at a very high risk for diverting colostomy due to patient body habitus-risk would include non-viable colostomy d ue poor blood supply as pt BMI is 50.9. Coby Abbott M.D. Pager: [phone] [facility] [address] [place] [address], [facility], [address] [place] [id number] Office: [phone] HPI Consult Data Date of Consult: 07/11/22 HPI Narrative HPI Narrative: SERENITY MACHADO, is a 52 M who presents due to sacral decubitus ulcer/diarrhea. Patient states he has had these recurrent cycles of going to the assisted on antibiotics and getting at the assisted once antibiotics is stopped due to insurance issues and after about 6 days patient will have diarrhea which he describes as liquid/somewhat explosive. Patient states that diarrhea started on Sunday morning. He states throughout Sunday night he did have diarrhea but did not call his mom/daughter to help clean him up and just sat in it. Sunday morning decided that he needed to call the squad. Patient previously had this wound debridement at the wound center and did also have an OR debridement with Dr. Borrego in March 2022. Patient is very high risk for diverting colostomy due to patient's size. Tertiary care facility is also recommended weight loss prior to getting a diverting colostomy there is a high risk of ischemic/necrotic bowel at the colostomy. Patient states that he has normal bowel movements until about the 6 days after coming home after being off antibiotics unsure what is the source patient states he takes Colace 1 pill a day, but does not take any laxatives. [facility] Medical History Acute respiratory failure, unspecified whether with hypoxia or hypercapnia Alcohol abuse Anemia Anemia Anxiety and depression Anxiety disorder Bacteremia due to Enterococcus Avelar's palsy Biceps tendonitis on left Blister (nonthermal), right foot, initial encounter Chronic ulcer of right foot with fat layer exposed CPAP (continuous positive airway pressure) dependence Debility Decubitus ulcer of sacral region, stage 4 Decubitus ulcer, buttock Depression Diabetes DVT (deep venous thrombosis) Edema of both lower extremities Essential (primary) hypertension Former smoker Headache Hemoglobin A1c 8.0% or greater History of foot ulcer History of stress test history of tooth removal Hyperlipidemia Incontinence 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 Inflammation of joint of left shoulder region Insomnia Left shoulder pain 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) use of anticoagulants 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 (current) 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 Morbid (severe) obesity due to excess calories Neuromuscular dysfunction of bladder, unspecified Neuropathic pain Obesities, morbid Obstructive sleep apnea On home oxygen therapy Osteoporosis Other seasonal allergic rhinitis Paraplegia Pressure sore of left ischium, unstageable Pressure ulcer Pressure ulcer of left buttock, unstageable Pressure ulcer of right buttock, unstageable Pressure ulcer of sacral region, unstageable Primary osteoarthritis, left shoulder Sacral ulcer Sacral wound Self-catheterizes urinary bladder Sepsis Skin necrosis Skin ulcer of left hip Skin ulcer of right hip Sleep apnea Stage II pressure ulcer Stage II pressure ulcer of buttock Type 2 diabetes mellitus with diabetic polyneuropathy Wound infection Home Medications atorvastatin 20 mg tablet 40 mg PO QHS cholesterol lowering 08/29/21 [History Last Taken 07/08/22] acetaminophen 325 mg capsule 650 mg PO Q4H PRN pain 02/28/22 [History Last Taken 07/09/22] gabapentin 400 mg capsule 400 mg PO 4X/DAY nerve pain 02/28/22 [History Last Taken 07/08/22] multivitamin 1 tab PO DAILY supplement 02/28/22 [History Last Taken 07/08/22] lurasidone 60 mg tablet (Latuda) 60 mg PO DINNER depression 04/12/22 [History Last Taken 07/08/22] peg [id number] 1 %-0.2 %-0.2 % eye drops (Artificial Tears (pg [id number])) 1 drp EACH EYE Q1H PRN DRY EYES #0 mL 04/14/22 [Rx Last Taken 1 Week Ago ~07/02/22] doxazosin 1 mg tablet 1 mg PO QHS PROSTATE 06/05/22 [History Last Taken 07/08/22] dulaglutide 4.5 mg/0.5 mL subcutaneous pen injector (Trulicity) 4.5 mg subcut FR blood sugar 06/05/22 [History Last Taken 07/07/22] furosemide 40 mg tablet 40 mg PO DAILY ADEMA #60 tabs 06/22/22 [Rx Last Taken 07/08/22] lisinopril 40 mg tablet 20 mg PO DAILY BP #90 tabs 06/22/22 [Rx Last Taken 07/08/22] insulin regular hum U-500 conc 500 unit/mL(3 mL) subcut pen (Humulin R U-500 (Conc) Insulin Kwikpen) 55 unit (0.11 mL) subcut TIDCM dm #30 mL 07/03/22 [Rx Last Taken 07/08/22] docusate sodium 100 mg capsule 100 mg PO DAILY BM 07/09/22 [History Last Taken 07/08/22] Allergy/AdvReac Type Severity Reaction Status Date / Time metformin AdvReac Unknown Diarrhea Verified 06/05/22 14:05 Family History Father Heart disease Myocardial infarction, Onset Age: 64 Hyperlipemia Mother Heart disease Hypertension Hyperlipemia Uncle Heart disease Grandfather Diabetes Grandmother Diabetes Surgical History History of back surgery Social History Smoking Status: Never smoker alcohol intake: former substance use type: does not use what type of physical activity do you participate in: none ROS Constitutional Constitutional: Denies fever(s) Eyes Eyes: Denies loss of central vision ENT HEENT: Denies dysphagia Cardiovascular Cardiovascular: Denies chest pain Respiratory/Chest Respiratory/Chest: Denies cough Gastrointestinal Gastrointestinal: Reports diarrhea; Denies abdominal pain, constipation, hematochezia, nausea or vomiting Genitourinary Genitourinary: Denies dysuria Musculoskeletal Musculoskeletal: Reports numbness Integumentary Integumentary: Reports non-healing lesions Neurologic Neurologic: Reports systems reviewed and no addt'l complaints, except as documented and paresthesias RLE and LLE Endocrine Endocrinology: Denies palpitations Hematologic/Lymphatic Hematologic/Lymphatic: Denies easy bleeding Physical Exam Const alert and oriented x3 General Appearance: cooperative Nutritional Appearance: obese HEENT normocephalic Head and Scalp: normal to inspection Eyes conjunctivae normal Neck supple Resp normal respiratory effort Cardio Rate: regular rate GI soft to palpation, non-tender and non-distended GI Narrative: Incarcerated umbilical hernia Extremity Extremity Narrative: Paraplegic Skin Skin Narrative: Sacral decubitus ulcer with erythema to surrounding skin likely due to previously sitting in contamination overnight. Neuro CN's II-XII intact bilaterally Speech: speech normal Psych mental status grossly normal Lab / Micro Data Result Diagrams: 07/11/22 05:25 07/11/22 05:25 Labs: Laboratory Results - last 24 hr 07/09/22 10:25: WBC 9.7, RBC 2.79 L, Hgb 7.4 L, Hct 24.3 L, MCV 87.1, MCH 26.5 L , MCHC 30.5 L, RDW Std Deviation 54.5 H, RDW Coeff of Fei 17.1 H, Plt Count 349, MPV 9.5, Immature Gran % (Auto) 0.600, Neut % (Auto) 76.6 H, Lymph % (Auto) 12.9 L, [place] % (Auto) 6.8, Eos % (Auto) 2.7, Baso % (Auto) 0.4, Absolute Neuts (auto) 7.4, Absolute Lymphs (auto) 1.25, Nucleated RBC % 0 07/09/22 10:25: Sodium 134 L, Potassium 5.9 H, Chloride 105, Carbon Dioxide 21.0, Anion Gap 8, BUN 65 H, Creatinine 2.74 H, Estim Creat Clear Calc 33.83, Est GFR (MDRD) Af Amer 31 L, Est GFR (MDRD) Non-Af 26 L, BUN/Creatinine Ratio 23.7 H, Glucose 201 H, Calcium 9.6, Total Bilirubin 0.30, AST 51 H, ALT 98 H, Alkaline Phosphatase 206 H, Total Protein 6.9, Albumin 2.0 L, Globulin 4.9 H, Albumin/Globulin Ratio 0.4 L 07/09/22 12:35: Blood Type O POSITIVE, Antibody Screen NEGATIVE 07/09/22 16:03: POC Glucose 166 H 07/09/22 16:15: Hgb 8.4 L, Hct 27.3 L Micro: Microbiology 07/09/22 13:05 Stool Stool Lactoferrin - Final 07/09/22 13:05 Stool C. difficile DNA Amplification - Final 07/09/22 13:08 Stool Stool Occult Blood (MARTHA) - Final Occult Blood Positive Charges/Coding Visit Charges Inpatient E&M: 15257 Init Hosp L3
[2022-07-09 22:13] VITALS: BP 114/49; PULSE 94; RESP 18; TEMP 37.3; O2SAT 96
[2022-07-09] MEDS: Doxazosin 1 MG Tablet PO (22:27)
[2022-07-09] MEDS: Atorvastatin Calcium 40 MG Tablet PO (22:27)
[2022-07-09 23:25] LABS: Bedside Glucose 179 mg/dL (74-106)
[2022-07-10] MEDS: 0.9% Normal Saline 1,000 ML 125 ML IV (01:02)
[2022-07-10] MEDS: 0.9% Saline Lock 10 ML Syringe IV (04:29)
[2022-07-10] MEDS: DAKIN'S SOL HALF STRENGTH (=0.25%) 1 APPLIC TOPICAL ×2 (04:31→10:30)
[2022-07-10 05:02] VITALS: BP 107/43; PULSE 92; RESP 18; TEMP 37.9; O2SAT 96
[2022-07-10 05:35] LABS: Absolute Lymphocyte Count 1.21 X10^3/uL (0.83-4.51); Absolute Neutrophil Count 5.4 X10^3/uL (2.0-7.7); Basophil# 0.04 X10^3/uL; Basophil% 0.5 % (0-1); Eosinophil# 0.75 X10^3/uL; Eosinophils% 9.3 % (0-5); Hematocrit 23.5 % (40-54); Hemoglobin 7.1 g/dL (13.0-16.5); Lymphocyte # 1.21 X10^3/ul (0.83-4.51); Mean Corp Hgb Conc 30.2 g/dL (32-36); Mean Corpuscular Hgb 26.7 pg (27.0-32.0); Mean Corpuscular Volume 88.3 fL (80-94); Mean Platelet Vol. 9.3 fl (6.2-12.0); Monocyte# 0.58 X10^3/uL; Monocyte% 7.2 % (0-10); NRBC Flagged by Analyzer 0 % (0-5); Neutrophil # 5.39 X10^3/uL (2.7-7.7); Neutrophil % 66.6 % (47-70); Platelet Count 320 K/mm3 (150-450); RBC Distribution Width CV 17.2 % (11.6-14.6); RBC Distribution Width SD 55.9 fl (35.1-43.9); Red Blood Count 2.66 M/mm3 (4.6-6.2); White Blood Count 8.1 K/mm3 (4.4-11.0)
[2022-07-10 06:02] LABS: ALB/GLOB Ratio 0.4 RATIO (0.9-2.4); AST(SGOT) 54 U/L (15-37); Alanine Aminotransfer ALT/SGPT 98 U/L (16-61); Albumin, Serum 1.9 g/dL (3.2-5.0); Alkaline Phosphatase 202 U/L (45-117); Anion Gap 8 (5-15); BUN 53 mg/dL (7-18); BUN/Creat Ratio 28.8 RATIO (10-20); Calcium,Total 9.1 mg/dL (8.5-10.1); Chloride 108 mmol/L (98-107); Creatinine, Serum 1.84 mg/dL (0.70-1.30); EST Glomerular Filtration Rate 41 mL/min (>60); Est Glom Filt Rate - Afr Amer 50 mL/min (>60); Estimated Creatinine Clearance 50.37 ml/min; Globulin 4.4 g/dL (2.2-4.2); Glucose 169 mg/dL (74-106); Potassium 5.4 mmol/L (3.5-5.1); Protein, Total 6.3 g/dL (6.4-8.2); Sodium Level 135 mmol/L (136-145)
[2022-07-10] MEDS: Heparin Injection (Vial) 5,000 UNIT/ML VIAL 5000 UNIT SC (06:59)
[2022-07-10 07:06] LABS: Bedside Glucose 140 mg/dL (74-106)
[2022-07-10] MEDS: Lactated Ringers 1,000 ML 100 ML IV ×2 (08:16→17:40)
[2022-07-10 10:21] VITALS: BP 107/46; PULSE 87; RESP 18; TEMP 36.4; O2SAT 96
[2022-07-10] MEDS: Multivitamins,Therapeutic Tablet 1 TABLET PO (10:30)
--- NOTE | 2022-07-10 11:24 | WOUNDNOTE ---
wound photo: sacrum
[2022-07-10 12:15] LABS: Bedside Glucose 197 mg/dL (74-106)
[2022-07-10] MEDS: Insulin Lispro 100 UNIT/ML INSULN.PEN SC ×2 (12:19→17:37)
--- NOTE | 2022-07-10 12:55 | CASEMGMT ---
Addendum entered by Adriana Turner 07/10/22 15:42: Received confirmation via careport that pt is receiving SN services. Original Note: RN OSMAR Readmission Note Previous Admission:? 06/19/2022-06/23/2022 Diagnosis:?UTI with N/V/D DC Disposition: [facility] Current Admission? Current Diagnosis: Acute on chronic infected decubitus ulcer Pt presented to ER from home with diarrhea x1 day. Pt is paraplegic with stage IV pressure ulcer. Pt had dc'd from [facility] on June 23 to [facility]. Pt dc'd from [facility] on the . Pt reports taking his medications as ordered since SNF stay. Pt has seen the [facility] on Jul 07 and had a televisit with . Pt reports his mother has been performing his daily wound care and [facility] has been coming 1x/wk for SN. Pt also is hiring a private aide for bathing of him and his mother. Pt reports that every time he dc's from SNF he has diarrhea 6 days later. He states his mother cannot care for him at home when he has diarrhea. GI to consult. OR c/s and pt is not a candidate for a diverting colostomy d/t body habitus. Pt expresses concern of going to SNF nursing home as his mother and dtr depends on him financially for their living expenses but pt cannot have mother caring for him at this capacity. Updated SW on this. Pt aware DEENA PRASAD to follow for dc planning. DC Plan: TBD Home with [facility] vs SNF. Notified [facility] that pt is hospitalized and requested confirmation of services. ?
--- NOTE | 2022-07-10 13:22 | CASEMGMT ---
Social Work SW updated by NAVDEEP Wright that pt stated plan to go home if medical issue clears up. If issue does not clear pt would need to go to SNF. SW consulted with Dr. Bradford to determine plan. Dr. Bradford stated pt medical issue is re-occuring and often clears after 1-[address] Bradford stated GI is consulted and will likely see pt tonight. Dr. Bradford stated to wait on further d/c plan until Dr. Pina completes consult. JAVAD Villagomez
--- NOTE | 2022-07-10 16:31 | PN.HOSP_ITS ---
Subjective Subjective Patient with recurrent diarrhea but seems to occur at home and resolves while he is here. His stool has been persistently lactoferrin positive but negative for any enteric pathology or C. difficile. He states that it resolves while he is hospitalized and then resumes approximately 7 days after discharge. He denies any new medications or supplements taken at home. Currently has fecal management system in place. He states that he ends up with nausea and vomiting after the diarrhea develops. He comes in severely dehydrated each time with resolution on IV fluids. He has been on antibiotics with age admission. Objective Data Objective Data Vital Signs: Vital Signs Temp Pulse Resp BP Pulse Ox O2 Del Method 97.5 F L 87 18 107/46 L 96 Room Air 07/10/22 10:07/10/22 10:07/10/22 10:07/10/22 10:07/10/22 10:07/10/22 10:21 Oxygen Delivery Method Room Air Weight: 170.4 kg Body Mass Index (BMI) 50.9 Intake & Output: Intake and Output for Last 24 Hours 07/08/22 07/09/22 07/10/22 23:59 23:59 23:59 Intake Total 3620.25 / 3620.25 2314.92 / 2314.92 Output Total 500 / 500 2150 / 2150 Balance 3120.25 / 3120.25 164.92 / 164.92 Lab / Micro Data Result Diagrams: 07/10/22 05:15 07/10/22 05:15 Labs: Laboratory Results - last 24 hr 07/09/22 22:08: POC Glucose 179 H 07/10/22 05:15: WBC 8.1, RBC 2.66 L, Hgb 7.1 L, Hct 23.5 L, MCV 88.3, MCH 26.7 L , MCHC 30.2 L, RDW Std Deviation 55.9 H, RDW Coeff of Fei 17.2 H, Plt Count 320, MPV 9.3, Immature Gran % (Auto) 1.400 H, Neut % (Auto) 66.6, Lymph % (Auto) 15.0 L, [place] % (Auto) 7.2, Eos % (Auto) 9.3 H, Baso % (Auto) 0.5, Absolute Neuts (auto) 5.4, Absolute Lymphs (auto) 1.21, Nucleated RBC % 0 07/10/22 05:15: Sodium 135 L, Potassium 5.4 H, Chloride 108 H, Carbon Dioxide 19.0 L, Anion Gap 8, BUN 53 H, Creatinine 1.84 H, Estim Creat Clear Calc 50.37, Est GFR (MDRD) Af Amer 50 L, Est GFR (MDRD) Non-Af 41 L, BUN/Creatinine Ratio 28.8 H, Glucose 169 H, Calcium 9.1, Total Bilirubin 0.30, AST 54 H, ALT 98 H, Alkaline Phosphatase 202 H, Total Protein 6.3 L, Albumin 1.9 L, Globulin 4.4 H, Albumin/Globulin Ratio 0.4 L 07/10/22 06:46: POC Glucose 140 H 07/10/22 11:51: POC Glucose 197 H Micro: Microbiology 07/09/22 13:05 Stool Stool Lactoferrin - Final 07/09/22 13:05 Stool Enteric Bacteriology - Final 07/09/22 13:05 Stool C. difficile DNA Amplification - Final 07/09/22 13:08 Stool Stool Occult Blood (MARTHA) - Final Occult Blood Positive Physical Exam Const alert, oriented x3 and well nourished Constitutional Narrative: Morbidly obese white male sitting up in bed eating breakfast, appears comfortable nontoxic HEENT head/scalp atraumatic and moist oral mucous membranes HEENT Narrative: Mallampati 3-4, no thrush Head and Scalp: normocephalic Resp normal respiratory effort, no retractions, no use of accessory muscles and clear to auscultation bilaterally Auscultation: Negative for crackles, rhonchi or wheezes Cardio regular rate, regular rhythm, S1 normal heart sound, S2 normal heart sound, no murmurs, no rub, no gallops, no clicks and no JVD GI GI Narrative: Sounds are hyperactive, abdomen is soft and nontender, no distention Extremity no clubbing, cyanosis or edema Extremity Narrative: 2+ pedal pulses Neuro Neuro Narrative: Bilateral lower extremity paraplegia-chronic, no other neurological deficits Speech: speech normal Psych affect normal Assessment & Plan Assessment/Plan (1) Acute on chronic anemia: (2) Guaiac positive stools: (3) ION (acute kidney injury): (4) Diarrhea: (5) Hyperkalemia: PLAN: Plan Acute nausea/vomiting/diarrhea -Patient presented with abdominal pain/nausea/vomiting -Previous CT of the abdomen pelvis showed features suggestive of acute infectious or inflammatory colitis at his last admission on 06/05/22 -enteric panel and C. difficile are negative -Continue Unasyn as ordered -Continue diet as ordered--> carb control -GI consultation patient has had 3 admissions now with similar presentation and no etiology identified Acute hyperkalemia -Likely related to dehydration and ION -Hold home Lasix -Hold home lisinopril -Repeat in a.m. ION -Baseline serum creatinine is between 0.8 and 1 -Current serum creatinine is 1.4 and 2.74 on admission -Continue aggressive IV fluids -Repeat lab in a.m. Acute on chronic anemia -Baseline serum hemoglobin is typically between 8.5 and 10 -Current hemoglobin is 7.1 down from 8.4 yesterday -Hemoccult is positive -Discontinue heparin subcu -GI consultation pending Suspected GI bleed -Hemoccult is positive -GI is consulted -Suspect lower Chronic sacral decubitus with acute infection -Consult wound care -Culture shows polymicrobial -Continue Unasyn for now and monitor sensitivities -White count is currently normalized -Neurosurgery has been consulted for diverting ostomy however the patient would not likely be able to have this done here secondary to his BMI -Patient will likely need placement as his mother who is in her 80s is having difficulty helping care for him at home and his daughter 16 years old Debility -We will likely need placement at discharge -Case management following DM-2 -Patient is on U500 insulin?but a decreased dose with ION and only utilizing a clear liquid diet for now -Hold home Trulicity -SSI -Accu-Cheks 3 times daily and at bedtime Hypertension -Hold home Lasix -Continue home amlodipine -As needed labetalol available for systolic greater than 160 Hyperlipidemia -Continue home statin Paraplegia -Patient is at baseline ROX -Nocturnal CPAP with 4 L bleed -Patient has home unit and okay to use Morbid obesity -Complicates treatment, prognosis, outcomes -BMI is 53.7 -Recommend weight loss DVT prophylaxis -Lovenox -SCDs CODE STATUS -Full code as per discussion on admission the emergency department Charges/Coding Visit Charges Inpatient E&M: 14671 Subs Hosp L2
[2022-07-10] MEDS: LURASIDONE HCL 20 MG TABLET 60 MG PO (17:38)
[2022-07-10 18:11] LABS: Bedside Glucose 185 mg/dL (74-106)
[2022-07-10 18:34] VITALS: BP 125/49; PULSE 97; RESP 16; TEMP 36.6; O2SAT 97
--- NOTE | 2022-07-10 19:14 | PN.SURG_ITS ---
Subjective Subjective Patient tolerated diet denies any abdominal pain, rectal management tube in place. Objective Data Objective Data Vital Signs: Vital Signs Temp Pulse Resp BP Pulse Ox O2 Del Method 97.8 F 97 16 125/49 H 97 Room Air 07/10/22 18:34 07/10/22 18:34 07/10/22 18:34 07/10/22 18:34 07/10/22 18:34 07/10/22 18:34 Oxygen Delivery Method Room Air Weight: 375 lb 10.683 oz Body Mass Index (BMI) 50.9 Intake & Output: Intake and Output for Last 24 Hours 07/08/22 07/09/22 07/10/22 23:59 23:59 23:59 Intake Total 3620.25 / 3620.25 3306.59 / 3306.59 Output Total 500 / 500 3750 / 3750 Balance 3120.25 / 3120.25 -443.41 / -443.41 Lab / Micro Data Result Diagrams: 07/11/22 05:25 07/11/22 05:25 Labs: Laboratory Results - last 24 hr 07/09/22 22:08: POC Glucose 179 H 07/10/22 05:15: WBC 8.1, RBC 2.66 L, Hgb 7.1 L, Hct 23.5 L, MCV 88.3, MCH 26.7 L , MCHC 30.2 L, RDW Std Deviation 55.9 H, RDW Coeff of Fei 17.2 H, Plt Count 320, MPV 9.3, Immature Gran % (Auto) 1.400 H, Neut % (Auto) 66.6, Lymph % (Auto) 15.0 L, [place] % (Auto) 7.2, Eos % (Auto) 9.3 H, Baso % (Auto) 0.5, Absolute Neuts (auto) 5.4, Absolute Lymphs (auto) 1.21, Nucleated RBC % 0 07/10/22 05:15: Sodium 135 L, Potassium 5.4 H, Chloride 108 H, Carbon Dioxide 19.0 L, Anion Gap 8, BUN 53 H, Creatinine 1.84 H, Estim Creat Clear Calc 50.37, Est GFR (MDRD) Af Amer 50 L, Est GFR (MDRD) Non-Af 41 L, BUN/Creatinine Ratio 28.8 H, Glucose 169 H, Calcium 9.1, Total Bilirubin 0.30, AST 54 H, ALT 98 H, Alkaline Phosphatase 202 H, Total Protein 6.3 L, Albumin 1.9 L, Globulin 4.4 H, Albumin/Globulin Ratio 0.4 L 07/10/22 06:46: POC Glucose 140 H 07/10/22 11:51: POC Glucose 197 H 07/10/22 17:36: POC Glucose 185 H Micro: Microbiology 07/09/22 13:05 Stool Stool Lactoferrin - Final 07/09/22 13:05 Stool Enteric Bacteriology - Final 07/09/22 13:05 Stool C. difficile DNA Amplification - Final 07/09/22 13:08 Stool Stool Occult Blood (MARTHA) - Final Occult Blood Positive Physical Exam Const oriented x3 and no apparent distress Resp normal respiratory effort Cardio regular rate GI soft to palpation and non-tender GI Narrative: Obese, umbilical hernia incarcerated Inspection: Negative for abdominal distention Extremity Extremity Narrative: Paraplegic Assessment & Plan Assessment/Plan (1) Decubitus ulcer of sacral region, stage 4: (2) Paraplegia: (3) Morbid (severe) obesity due to excess calories: (4) Incontinence 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: PLAN: Plan Will got to OR for debridement of sacral decubitus ulcer tomorrow discussed risk including but not limited to bleeding, need for further debridement. Pt had no further questions. No plans for diverting colostomy due to pt BMI--recommend wt loss-- d/w patient--[facility] GI c/s by primary due to diarrhea as this has been recurrent and has bought pt back to hospital multiple times. Coby Abbott M.D. Pager: [phone] [facility] [address] [place] [address], [facility], [address] [place] [id number] Office: [phone]
[2022-07-10] MEDS: Acetaminophen 325 MG Tablet 650 MG PO (19:54)
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
[2022-07-10 22:07] VITALS: BP 123/48; PULSE 87; RESP 18; TEMP 36.6; O2SAT 97
[2022-07-10] MEDS: Doxazosin 1 MG Tablet PO (22:16)
[2022-07-10] MEDS: Atorvastatin Calcium 40 MG Tablet PO (22:16)
[2022-07-10 23:31] LABS: Bedside Glucose 144 mg/dL (74-106)
[2022-07-11] VITALS (10 sets, daily range): BP systolic 102–177; BP diastolic 42–89; PULSE 79–107; RESP 16–18; TEMP 36.7–37.4; O2SAT 94–100; BMI 50.9
[2022-07-11] MEDS: DAKIN'S SOL HALF STRENGTH (=0.25%) 1 APPLIC TOPICAL ×3 (02:58→22:11)
[2022-07-11] MEDS: Acetaminophen 325 MG Tablet 650 MG PO ×2 (03:40→17:30)
[2022-07-11] MEDS: Lactated Ringers 1,000 ML 100 ML IV ×2 (03:44→15:30)
[2022-07-11 06:05] LABS: Absolute Lymphocyte Count 1.26 X10^3/uL (0.83-4.51); Absolute Neutrophil Count 4.9 X10^3/uL (2.0-7.7); Basophil# 0.03 X10^3/uL; Basophil% 0.4 % (0-1); Eosinophil# 0.69 X10^3/uL; Hematocrit 25.6 % (40-54); Hemoglobin 7.8 g/dL (13.0-16.5); Lymphocyte # 1.26 X10^3/ul (0.83-4.51); Lymphocyte % 16.5 % (19-41); Mean Corp Hgb Conc 30.5 g/dL (32-36); Mean Corpuscular Hgb 26.3 pg (27.0-32.0); Mean Corpuscular Volume 86.2 fL (80-94); Mean Platelet Vol. 9.3 fl (6.2-12.0); Monocyte# 0.56 X10^3/uL; Monocyte% 7.3 % (0-10); NRBC Flagged by Analyzer 0 % (0-5); Neutrophil # 4.89 X10^3/uL (2.7-7.7); Neutrophil % 64.2 % (47-70); Platelet Count 372 K/mm3 (150-450); RBC Distribution Width CV 16.5 % (11.6-14.6); RBC Distribution Width SD 52.3 fl (35.1-43.9); Red Blood Count 2.97 M/mm3 (4.6-6.2); White Blood Count 7.6 K/mm3 (4.4-11.0)
[2022-07-11 06:38] LABS: ALB/GLOB Ratio 0.4 RATIO (0.9-2.4); AST(SGOT) 43 U/L (15-37); Alanine Aminotransfer ALT/SGPT 100 U/L (16-61); Alkaline Phosphatase 208 U/L (45-117); Anion Gap 8 (5-15); BUN 27 mg/dL (7-18); BUN/Creat Ratio 30.3 RATIO (10-20); Calcium,Total 9.5 mg/dL (8.5-10.1); Chloride 108 mmol/L (98-107); Creatinine, Serum 0.89 mg/dL (0.70-1.30); EST Glomerular Filtration Rate 94 mL/min (>60); Est Glom Filt Rate - Afr Amer 114 mL/min (>60); Estimated Creatinine Clearance 104.14 ml/min; Globulin 4.9 g/dL (2.2-4.2); Glucose 151 mg/dL (74-106); Potassium 4.6 mmol/L (3.5-5.1); Protein, Total 6.9 g/dL (6.4-8.2); Sodium Level 137 mmol/L (136-145)
[2022-07-11 07:05] LABS: Bedside Glucose 146 mg/dL (74-106)
--- NOTE | 2022-07-11 09:38 | WOUNDNOTE ---
Pt scheduled for surgical debridement this am per Dr Abbott. will leave dressing in place this am. pt is being picked up at 0945.
--- NOTE | 2022-07-11 10:02 | PHA.PHARE_ITS ---
Consult Pharmacy has been consulted to manage selected antiobiotic: Vancomycin Type of Consult: New start Prior Doses of Antibiotics Received/Current Regimen: Medications Vancomycin HCl 2,000 mg/ (Sodium Chloride) 540 mls @ 250 mls/hr IV X1 ONE Stop: 07/11/22 11:09 Last Admin: 07/11/22 08:56 Dose: 250 mls/hr Labs: Sodium 137 mmol/L (136-145) 07/11/22 05:25 Potassium 4.6 mmol/L (3.5-5.1) 07/11/22 05:25 Chloride 108 mmol/L (98-107) H 07/11/22 05:25 Carbon Dioxide 21.0 mmol/L (21.0-32.0) 07/11/22 05:25 Anion Gap 8 (5-15) 07/11/22 05:25 BUN 27 mg/dL (7-18) H 07/11/22 05:25 Creatinine 0.89 mg/dL (0.70-1.30) 07/11/22 05:25 Est GFR (MDRD) Af Amer 114 mL/min (>60) 07/11/22 05:25 Est GFR (MDRD) Non-Af 94 mL/min (>60) 07/11/22 05:25 BUN/Creatinine Ratio 30.3 RATIO (10-20) H 07/11/22 05:25 Glucose 151 mg/dL (74-106) H 07/11/22 05:25 Microbiology: Microbiology 07/10/22 10:05 Urine, Catheterized Urine Culture - Preliminary GNR non oceanographer geological 07/09/22 13:05 Stool Stool Lactoferrin - Final 07/09/22 13:05 Stool Enteric Bacteriology - Final 07/09/22 13:05 Stool C. difficile DNA Amplification - Final 07/09/22 13:08 Stool Stool Occult Blood (MARTHA) - Final Occult Blood Positive Weight used for dosin kg Goal Trough: 15-20 mcg/mL Pharmacy Plan for Drug Dosinmg loading dose given. Calculated dose is 1500mg IV q8h but patient had significantly elevated SCr a couple of days ago and is paraplegic. Considering both, will estimate clearance is lower than calculated and recommend instead to start with 2000mg IV q12h with trough prior to 4th dose. Pharmacy Service will continue to monitor and adjust dosing as required. Follow-Up Labs: Trough Vancomycin - 07/12 @ 2029
--- NOTE | 2022-07-11 11:05 | CON.PCM.ID_ITS ---
Assessment & Plan Assessment/Plan (1) Diarrhea: (2) ION (acute kidney injury): (3) Infected decubitus ulcer: PLAN: OR today. Recent wound cx with MRSA, proteus, enterococcus, and strep. On vanc/unasyn. UA with mild pyuria, ucx with GNR. Recent ucx with pseudomonas. For empiric pseudomonas coverage and broader stool chelsie coverage given diarrhea and infected ulcer, will change to vanc/zosyn. Will follow, thank you (4) Paraplegia: HPI Consult Data Date of Consult: 07/11/22 HPI Narrative Reason for Consultation: wound infection HPI Narrative: SERENITY MACHADO, is a 52 M with paraplegia, recurrent uti. Admitted earlier this month with PsA uti, discharged on short course meropenem. Has been at home for past few weeks, sent to ED with acute onset diarrhea. Had been having increased drainage/odor from sacral wound and outpt cx had been sent from wound center. Feeling ok today, no fever, no abd pain. On vanc/unasyn. No changes in urine. OR today planned for I&D. Full ROS performed and neg except as noted above. [facility] Medical History Acute respiratory failure, unspecified whether with hypoxia or hypercapnia Alcohol abuse Anemia Anemia Anxiety and depression Anxiety disorder Bacteremia due to Enterococcus Avelar's palsy Biceps tendonitis on left Blister (nonthermal), right foot, initial encounter Chronic ulcer of right foot with fat layer exposed CPAP (continuous positive airway pressure) dependence Debility Decubitus ulcer of sacral region, stage 4 Decubitus ulcer, buttock Depression Diabetes DVT (deep venous thrombosis) Edema of both lower extremities Essential (primary) hypertension Former smoker Headache Hemoglobin A1c 8.0% or greater History of foot ulcer History of stress test history of tooth removal Hyperlipidemia Incontinence 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 Inflammation of joint of left shoulder region Insomnia Left shoulder pain 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 Morbid (severe) obesity due to excess calories Neuromuscular dysfunction of bladder, unspecified Neuropathic pain Obesities, morbid Obstructive sleep apnea On home oxygen therapy Osteoporosis Other seasonal allergic rhinitis Paraplegia Pressure sore of left ischium, unstageable Pressure ulcer Pressure ulcer of left buttock, unstageable Pressure ulcer of right buttock, unstageable Pressure ulcer of sacral region, unstageable Primary osteoarthritis, left shoulder Sacral ulcer Sacral wound Self-catheterizes urinary bladder Sepsis Skin necrosis Skin ulcer of left hip Skin ulcer of right hip Sleep apnea Stage II pressure ulcer Stage II pressure ulcer of buttock Type 2 diabetes mellitus with diabetic polyneuropathy Wound infection Home Medications atorvastatin 20 mg tablet 40 mg PO QHS cholesterol lowering 08/29/21 [History Last Taken 07/08/22] acetaminophen 325 mg capsule 650 mg PO Q4H PRN pain 02/28/22 [History Last Taken 07/09/22] gabapentin 400 mg capsule 400 mg PO 4X/DAY nerve pain 02/28/22 [History Last Taken 07/08/22] multivitamin 1 tab PO DAILY supplement 02/28/22 [History Last Taken 07/08/22] lurasidone 60 mg tablet (Latuda) 60 mg PO DINNER depression 04/12/22 [History Last Taken 07/08/22] peg [id number] 1 %-0.2 %-0.2 % eye drops (Artificial Tears ([id number])) 1 drp EACH EYE Q1H PRN DRY EYES #0 mL 04/14/22 [Rx Last Taken 1 Week Ago ~07/02/22] doxazosin 1 mg tablet 1 mg PO QHS PROSTATE 06/05/22 [History Last Taken 07/08/22] dulaglutide 4.5 mg/0.5 mL subcutaneous pen injector (Trulicity) 4.5 mg subcut FR blood sugar 06/05/22 [History Last Taken 07/07/22] furosemide 40 mg tablet 40 mg PO DAILY ADEMA #60 tabs 06/22/22 [Rx Last Taken 07/08/22] lisinopril 40 mg tablet 20 mg PO DAILY BP #90 tabs 06/22/22 [Rx Last Taken 07/08/22] insulin regular hum U-500 conc 500 unit/mL(3 mL) subcut pen (Humulin R U-500 (Conc) Insulin Kwikpen) 55 unit (0.11 mL) subcut TIDCM dm #30 mL 07/03/22 [Rx Last Taken 07/08/22] docusate sodium 100 mg capsule 100 mg PO DAILY BM 07/09/22 [History Last Taken 07/08/22] Allergy/AdvReac Type Severity Reaction Status Date / Time metformin AdvReac Unknown Diarrhea Verified 06/05/22 14:05 Family History Father Heart disease Myocardial infarction, Onset Age: 64 Hyperlipemia Mother Heart disease Hypertension Hyperlipemia Uncle Heart disease Grandfather Diabetes Grandmother Diabetes Surgical History History of back surgery Social History Smoking Status: Never smoker alcohol intake: former substance use type: does not use what type of physical activity do you participate in: none Physical Exam Const alert, oriented x3 and no apparent distress General Appearance: cooperative HEENT normocephalic and head/scalp atraumatic Eyes PERRL and EOMs intact bilaterally Neck supple and No nodes Resp normal air movement and clear to auscultation bilaterally Cardio regular rate and regular rhythm GI soft to palpation, non-tender and non-distended Extremity General Extremity: edema Skin Skin Narrative: reviewed sacral photo Neuro CN's II-XII intact bilaterally Lab / Micro Data Attestation: I reviewed the patient's lab results. Result Diagrams: 07/11/22 05:25 07/11/22 05:25 Labs: Laboratory Results - last 24 hr 07/10/22 11:51: POC Glucose 197 H 07/10/22 17:36: POC Glucose 185 H 07/10/22 21:59: POC Glucose 144 H 07/11/22 05:25: WBC 7.6, RBC 2.97 L, Hgb 7.8 L, Hct 25.6 L, MCV 86.2, MCH 26.3 L , MCHC 30.5 L, RDW Std Deviation 52.3 H, RDW Coeff of Fei 16.5 H, Plt Count 372, MPV 9.3, Immature Gran % (Auto) 2.600 H, Neut % (Auto) 64.2, Lymph % (Auto) 16.5 L, [place] % (Auto) 7.3, Eos % (Auto) 9.0 H, Baso % (Auto) 0.4, Absolute Neuts (auto) 4.9, Absolute Lymphs (auto) 1.26, Nucleated RBC % 0 07/11/22 05:25: Sodium 137, Potassium 4.6, Chloride 108 H, Carbon Dioxide 21.0, Anion Gap 8, BUN 27 H, Creatinine 0.89, Estim Creat Clear Calc 104.14, Est GFR (MDRD) Af Amer 114, Est GFR (MDRD) Non-Af 94, BUN/Creatinine Ratio 30.3 H, Glucose 151 H, Calcium 9.5, Total Bilirubin 0.30, AST 43 H, ALT 100 H, Alkaline Phosphatase 208 H, Total Protein 6.9, Albumin 2.0 L, Globulin 4.9 H, Albumin/Globulin Ratio 0.4 L 07/11/22 05:25: Hemoglobin A1c 6.0 H 07/11/22 06:38: POC Glucose 146 H Micro: Microbiology 07/10/22 10:05 Urine, Catheterized Urine Culture - Preliminary GNR 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 difficile DNA Amplification - Final
--- NOTE | 2022-07-11 15:16 | PN.HOSP_ITS ---
Subjective Subjective Patient still with liquid stool and fecal management system in place. To OR later today for debridement of his sacral pressure ulcer. Still with abdominal cramping and increased stool production with eating however oral intake has been good. Objective Data Objective Data Vital Signs: Vital Signs Temp Pulse Resp BP Pulse Ox O2 Del Method 98.0 F 82 18 128/63 H 100 Room Air 07/11/22 09:35 07/11/22 09:35 07/11/22 09:35 07/11/22 09:35 07/11/22 09:35 07/11/22 09:35 Oxygen Delivery Method Room Air Weight: 170.4 kg Body Mass Index (BMI) 50.9 Intake & Output: Intake and Output for Last 24 Hours 07/09/22 07/10/22 07/11/22 23:59 23:59 23:59 Intake Total 3620.25 / 3620.25 4653.59 / 4653.59 416.67 / 416.67 Output Total 500 / 500 5900 / 5900 3600 / 3600 Balance 3120.25 / 3120.25 -1246.41 / -1246.41 -3183.33 / -3183.33 Lab / Micro Data Result Diagrams: 07/11/22 05:25 07/11/22 05:25 Labs: Laboratory Results - last 24 hr 07/10/22 17:36: POC Glucose 185 H 07/10/22 21:59: POC Glucose 144 H 07/11/22 05:25: WBC 7.6, RBC 2.97 L, Hgb 7.8 L, Hct 25.6 L, MCV 86.2, MCH 26.3 L , MCHC 30.5 L, RDW Std Deviation 52.3 H, RDW Coeff of Fei 16.5 H, Plt Count 372, MPV 9.3, Immature Gran % (Auto) 2.600 H, Neut % (Auto) 64.2, Lymph % (Auto) 16.5 L, [place] % (Auto) 7.3, Eos % (Auto) 9.0 H, Baso % (Auto) 0.4, Absolute Neuts (auto) 4.9, Absolute Lymphs (auto) 1.26, Nucleated RBC % 0 07/11/22 05:25: Sodium 137, Potassium 4.6, Chloride 108 H, Carbon Dioxide 21.0, Anion Gap 8, BUN 27 H, Creatinine 0.89, Estim Creat Clear Calc 104.14, Est GFR (MDRD) Af Amer 114, Est GFR (MDRD) Non-Af 94, BUN/Creatinine Ratio 30.3 H, Glucose 151 H, Calcium 9.5, Total Bilirubin 0.30, AST 43 H, ALT 100 H, Alkaline Phosphatase 208 H, Total Protein 6.9, Albumin 2.0 L, Globulin 4.9 H, Albumin/Globulin Ratio 0.4 L 07/11/22 05:25: Hemoglobin A1c 6.0 H 07/11/22 06:38: POC Glucose 146 H Micro: Microbiology 07/10/22 10:05 Urine, Catheterized Urine Culture - Preliminary GNR 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 difficile DNA Amplification - Final 07/09/22 13:08 Stool Stool Occult Blood (MARTHA) - Final Occult Blood Positive Physical Exam Const alert, oriented x3 and well nourished Constitutional Narrative: Morbidly obese white male sitting up in bed watching TV, appears comfortable nontoxic HEENT head/scalp atraumatic and moist oral mucous membranes HEENT Narrative: Mallampati 3, no thrush, dentition is poor Resp normal respiratory effort, no retractions, no use of accessory muscles and clear to auscultation bilaterally Auscultation: Negative for crackles, rhonchi or wheezes Cardio regular rate, regular rhythm, S1 normal heart sound, S2 normal heart sound, no murmurs, no rub, no gallops, no clicks and no JVD GI normal to inspection, nondistended, normoactive bowel sounds, soft to palpation and non-tender Extremity no clubbing, cyanosis or edema Extremity Narrative: 2+ pedal pulses Neuro Neuro Narrative: Bilateral lower extremity paraplegia-chronic, no other neurological deficits Speech: speech normal Psych affect normal Assessment & Plan Assessment/Plan (1) Acute on chronic anemia: (2) Guaiac positive stools: (3) ION (acute kidney injury): (4) Diarrhea: (5) Hyperkalemia: (6) Transaminitis: (7) Infected decubitus ulcer: PLAN: Plan Acute nausea/vomiting/diarrhea -Patient presented with abdominal pain/nausea/vomiting -Previous CT of the abdomen pelvis showed features suggestive of acute infectious or inflammatory colitis at his last admission on 06/05/22 -enteric panel and C. difficile are negative -GI was consulted and plan is for EGD and colonoscopy once surgery is completed the debridement -Will need continued fecal management system to avoid contamination of the clean wound -Currently n.p.o. -GI following as patient has had 3 admissions now with similar presentation and no etiology identified Acute hyperkalemia -Resolved ION -Baseline serum creatinine is between 0.8 and 1 -Serum creatinine was 2.74 on admission and now normalized to 0.89 -Continue IV fluids for now as patient is still having significant stool output and is n.p.o. for procedure later today -Repeat lab in a.m. Acute on chronic anemia -Baseline serum hemoglobin is typically between 8.5 and 10 -Hemoglobin has appeared to stabilize -Hemoccult is positive -GI following and plan is for EGD and colonoscopy Suspected GI bleed -Hemoccult is positive -GI following -Suspect lower -Prophylactic heparin on hold Chronic sacral decubitus with acute infection -Wound care is following -Culture shows polymicrobial -Vancomycin added today and Unasyn converted to Zosyn -White count remains normalized -General surgery has been consulted for diverting ostomy however the patient would not likely be able to have this done here secondary to his BMI -Wound debridement later today -Patient will likely need placement as his mother who is in her 80s is having difficulty helping care for him at home and his daughter 16 years old Transaminitis -Stable and overall mild but remains elevated and not trending down at this point -We will continue to monitor -May be related to antibiotics or abdominal issue -This does not appear to be chronic Debility -We will likely need placement at discharge -Case management following DM-2 -Patient is on U500 insulin at baseline which is on hold for now -May need to reinitiate once p.o. intake is back to baseline -A.m. glucose was 151 -Hold home Trulicity -SSI -Accu-Cheks 3 times daily and at bedtime -A1c is 6.0 Hypertension -Hold home Lasix -Continue home amlodipine -As needed labetalol available for systolic greater than 160 Hyperlipidemia -Continue home statin Paraplegia -Patient is at baseline ROX -Nocturnal CPAP with 4 L bleed -Patient has home unit and okay to use Morbid obesity -Complicates treatment, prognosis, outcomes -BMI is 53.7 -Recommend weight loss DVT prophylaxis -Lovenox -SCDs CODE STATUS -Full code as per discussion on admission the emergency department Charges/Coding Visit Charges Inpatient E&M: 41060 Subs Hosp L2
--- NOTE | 2022-07-11 15:36 | PCM.OPRPT ---
Report of Operation Date of Procedure: 07/11/22 Pre-Operative Diagnosis: Infected sacral decubitus ulcer with exposed bone Post-Operative Diagnosis: Same Surgery/Procedure Performed:: Debridement of sacral decubitus ulcer with exposed bone. Surgeon: Coby Abbott [employer] learning support teacher: Marleny Phipps Type of Anesthesia: MAC Anesthesiologist: Garfield Duke Special Medications: Patient previously on Unasyn and bank Specimen's removed: Decubitus ulcer tissue sent for culture Estimated Blood Loss (mL): 30 cc Description of Procedure: Patient was bought into OR on his bariatric bed. Patient was placed in right lateral decubitus position and MAC anesthesia induced. The sacral ulcer was prepped draped in sterile fashion with betadine. Necrotic tissue in the wound base was sharply debrided until viable tissue. hemostasis achieved with electrocautery. debrided tissue was sent for culture. Wound measured 10 cm x10 cm x6 (depth)cm. Wound was irrigated with irrisept then rinsed with saline. wound was packed with betadine soaked kerlix and dressed with ABD pads. Pt tolerated procedure well.
[2022-07-11] MEDS: Juven (unflavored) Packet 1 PACKET PO (16:55)
[2022-07-11 17:05] LABS: Bedside Glucose 112 mg/dL (74-106)
[2022-07-11] MEDS: LURASIDONE HCL 20 MG TABLET 60 MG PO (18:10)
--- NOTE | 2022-07-11 19:21 | NURSING ---
This RN got order for midline. Spoke with fine arts packer, they are aware of the need for access.
--- NOTE | 2022-07-11 20:38 | NURSING ---
pt called and stated he pulled on pillow behind him dislodging his fecal mgmt tube, called nursing checking department supervisor for kit so can be replaced
--- NOTE | 2022-07-11 21:30 | NURSING ---
new fecal management kit came to floor, staff in to remove old tube, change linens and clean pt up. pt verbally abusive to staff, yelling and cussing at staff. pt difficult to redirect. when finished with care asked pt to turn on side and pt initially refusing and demanding to be put on his back, explained need to get off of his wound and then pt agreed to be turned with pillows.
[2022-07-11] MEDS: Atorvastatin Calcium 40 MG Tablet PO (22:09)
[2022-07-11] MEDS: Doxazosin 1 MG Tablet PO (22:09)
[2022-07-11] MEDS: Insulin Lispro 100 UNIT/ML INSULN.PEN SC (22:19)
[2022-07-11 22:45] LABS: Bedside Glucose 154 mg/dL (74-106)
--- NOTE | 2022-07-11 23:35 | NURSING ---
pt apologized to jack spinner and nurses for his earlier behavior
[2022-07-12] MEDS: Acetaminophen 325 MG Tablet 650 MG PO ×3 (03:49→23:13)
[2022-07-12 03:54] VITALS: BP 133/54; PULSE 97; RESP 18; TEMP 36.6; O2SAT 97
[2022-07-12 03:59] VITALS: O2SAT 97
[2022-07-12 06:50] LABS: Absolute Neutrophil Count 5.4 X10^3/uL (2.0-7.7); Basophil# 0.03 X10^3/uL; Basophil% 0.4 % (0-1); Eosinophil# 0.54 X10^3/uL; Hematocrit 24.8 % (40-54); Hemoglobin 7.7 g/dL (13.0-16.5); Lymphocyte % 12.9 % (19-41); Mean Corpuscular Hgb 26.8 pg (27.0-32.0); Mean Corpuscular Volume 86.4 fL (80-94); Mean Platelet Vol. 9.1 fl (6.2-12.0); Monocyte# 0.56 X10^3/uL; Monocyte% 7.2 % (0-10); NRBC Flagged by Analyzer 0 % (0-5); Neutrophil # 5.43 X10^3/uL (2.7-7.7); Platelet Count 349 K/mm3 (150-450); RBC Distribution Width CV 16.3 % (11.6-14.6); RBC Distribution Width SD 52.2 fl (35.1-43.9); Red Blood Count 2.87 M/mm3 (4.6-6.2); White Blood Count 7.8 K/mm3 (4.4-11.0)
[2022-07-12 07:00] LABS: Bedside Glucose 143 mg/dL (74-106)
[2022-07-12 07:21] LABS: ALB/GLOB Ratio 0.4 RATIO (0.9-2.4); AST(SGOT) 34 U/L (15-37); Alanine Aminotransfer ALT/SGPT 84 U/L (16-61); Alkaline Phosphatase 192 U/L (45-117); Anion Gap 7 (5-15); BUN 16 mg/dL (7-18); BUN/Creat Ratio 20.6 RATIO (10-20); Calcium,Total 9.6 mg/dL (8.5-10.1); Chloride 108 mmol/L (98-107); Creatinine, Serum 0.78 mg/dL (0.70-1.30); EST Glomerular Filtration Rate 111 mL/min (>60); Est Glom Filt Rate - Afr Amer 134 mL/min (>60); Estimated Creatinine Clearance 118.83 ml/min; Globulin 4.8 g/dL (2.2-4.2); Glucose 167 mg/dL (74-106); Potassium 4.3 mmol/L (3.5-5.1); Protein, Total 6.8 g/dL (6.4-8.2); Sodium Level 137 mmol/L (136-145)
[2022-07-12] MEDS: DAKIN'S SOL HALF STRENGTH (=0.25%) 1 APPLIC TOPICAL ×2 (08:29→23:17)
[2022-07-12] MEDS: Multivitamins,Therapeutic Tablet 1 TABLET PO (09:04)
[2022-07-12] MEDS: Juven (unflavored) Packet 1 PACKET PO ×2 (09:04→16:41)
[2022-07-12] MEDS: amLODIPine 10 MG Tablet PO (09:05)
[2022-07-12] MEDS: Nystatin Powder 15gm Bottle 1 APPLIC TOPICAL ×2 (09:05→23:15)
--- NOTE | 2022-07-12 09:06 | WOUNDNOTE ---
wound photo: sacrum
[2022-07-12 10:00] VITALS: BP 137/71; PULSE 84; RESP 18; TEMP 36.6; O2SAT 97
--- NOTE | 2022-07-12 10:18 | CASEMGMT ---
Social Work? SW in to meet with pt following discussion with that pt may need placement at nursing facility. SW introduced self and role at the hospital. Pt agreeable to discussing discharge planning. A list of SNF providers including quality and resource use data consistent with the patient?s preferred geographic region, medical needs, and insurance network were provided from the [facility] Guide. Pt did not need to review list, stated [facility] is preference as pt has been there before. Pt stated would go to SNF if needed but prefers home. EDGAR explained referral will be sent and if MD Bradford and other consulting Drritu feel it is not longer necessary that it can be cancelled. Pt understanding. EDGAR sent referral to [facility] via [facility]. PLAN: [facility], pending acceptance and precert ? JAVAD Villagomez?
[2022-07-12 11:40] LABS: Bedside Glucose 230 mg/dL (74-106)
--- NOTE | 2022-07-12 12:15 | PN.SURG_ITS ---
Subjective Subjective dulce dressing changes, GI planning for scopes. Objective Data Objective Data Vital Signs: Vital Signs Temp Pulse Resp BP Pulse Ox O2 Del Method 97.8 F 84 18 137/71 H 97 Room Air 07/12/22 10:00 07/12/22 10:00 07/12/22 10:00 07/12/22 10:00 07/12/22 10:00 07/12/22 10:00 Oxygen Delivery Method Room Air Weight: 371 lb 14.717 oz Body Mass Index (BMI) 50.9 Intake & Output: Intake and Output for Last 24 Hours 07/10/22 07/11/22 07/12/22 23:59 23:59 23:59 Intake Total 4653.59 / 4653.59 3545.00 / 3545.00 640 / 640 Output Total 5900 / 5900 5150 / 5150 275 / 275 Balance -1246.41 / -1246.41 -1605.00 / -1605.00 365 / 365 Lab / Micro Data Result Diagrams: 07/12/22 06:25 07/12/22 06:25 Labs: Laboratory Results - last 24 hr 07/11/22 16:29: POC Glucose 112 H 07/11/22 22:19: POC Glucose 154 H 07/12/22 06:25: WBC 7.8, RBC 2.87 L, Hgb 7.7 L, Hct 24.8 L, MCV 86.4, MCH 26.8 L , MCHC 31.0 L, RDW Std Deviation 52.2 H, RDW Coeff of Fei 16.3 H, Plt Count 349, MPV 9.1, Immature Gran % (Auto) 2.500 H, Neut % (Auto) 70.0, Lymph % (Auto) 12.9 L, [place] % (Auto) 7.2, Eos % (Auto) 7.0 H, Baso % (Auto) 0.4, Absolute Neuts (auto) 5.4, Absolute Lymphs (auto) 1.00, Nucleated RBC % 0 07/12/22 06:25: Sodium 137, Potassium 4.3, Chloride 108 H, Carbon Dioxide 22.0, Anion Gap 7, BUN 16, Creatinine 0.78, Estim Creat Clear Calc 118.83, Est GFR (MDRD) Af Amer 134, Est GFR (MDRD) Non-Af 111, BUN/Creatinine Ratio 20.6 H, Glucose 167 H, Calcium 9.6, Total Bilirubin 0.40, AST 34, ALT 84 H, Alkaline P hosphatase 192 H, Total Protein 6.8, Albumin 2.0 L, Globulin 4.8 H, Albumin/Globulin Ratio 0.4 L 07/12/22 06:39: POC Glucose 143 H 07/12/22 11:21: POC Glucose 230 H Micro: Microbiology 07/11/22 15:35 Wound - Sacral Wound Culture - Preliminary GNR non cloth bin packer 07/10/22 10:05 Urine, Catheterized Urine Culture - Preliminary Pseudomonas aeroginosa 07/09/22 13:05 Stool Stool Lactoferrin - Final 07/09/22 13:05 Stool Enteric Bacteriology - Final 07/09/22 13:05 Stool C. difficile DNA Amplification - Final 07/09/22 13:08 Stool Stool Occult Blood (MARTHA) - Final Occult Blood Positive Physical Exam Const oriented x3 and no apparent distress GI GI Narrative: sacral decubitus ulcer dressed. Assessment & Plan Assessment/Plan (1) Decubitus ulcer of sacral region, stage 4: (2) Paraplegia: (3) Morbid (severe) obesity due to excess calories: (4) Incontinence 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: PLAN: Plan continue wound care per wound nurse. no plans for further surgical intervention. Coby Abbott M.D. Pager: [phone] [facility] [address] [place] [address], [facility], [address] [place] [address] Office: [phone]
--- NOTE | 2022-07-12 13:35 | PCM.PN.ID ---
Physical Exam Narrative Feeling ok, no fever, no pain. Ongoing diarrhea. Const alert and no apparent distress Resp normal air movement and clear to auscultation bilaterally Cardio regular rate and regular rhythm GI soft to palpation, non-tender and non-distended Extremity General Extremity: edema Skin Skin Narrative: no new rash ID ID: Route of nutrition/ use of supplements: [] Nutritional Intake: [] IV Site: [] Garcia Catheter: [] Assessment & Plan Assessment/Plan (1) Diarrhea: (2) ION (acute kidney injury): (3) Infected decubitus ulcer: PLAN: Recent wound cx with MRSA, proteus, enterococcus, and strep. On vanc/zosyn. UA with mild pyuria, ucx with PsA. Taken to OR 07/11/[address] Abbott. PsA is R to zosyn, will change to duc. Will follow (4) Paraplegia:
--- NOTE | 2022-07-12 14:35 | PN.HOSP_ITS ---
Subjective Subjective Patient states he has had less rumbling in his abdomen after eating. Stool output seems to have been less. Debridement went well yesterday. Plan is for EGD and colonoscopy tomorrow with prep being initiated this evening. Discussed with patient. Objective Data Objective Data Vital Signs: Vital Signs Temp Pulse Resp BP Pulse Ox O2 Del Method 97.8 F 84 18 137/71 H 97 Room Air 07/12/22 10:00 07/12/22 10:00 07/12/22 10:00 07/12/22 10:00 07/12/22 10:00 07/12/22 10:00 Oxygen Delivery Method Room Air Weight: 168.7 kg Body Mass Index (BMI) 50.9 Intake & Output: Intake and Output for Last 24 Hours 07/10/22 07/11/22 07/12/22 23:59 23:59 23:59 Intake Total 4653.59 / 4653.59 3545.00 / 3545.00 640 / 640 Output Total 5900 / 5900 5150 / 5150 275 / 275 Balance -1246.41 / -1246.41 -1605.00 / -1605.00 365 / 365 Lab / Micro Data Result Diagrams: 07/12/22 06:25 07/12/22 06:25 Labs: Laboratory Results - last 24 hr 07/11/22 16:29: POC Glucose 112 H 07/11/22 22:19: POC Glucose 154 H 07/12/22 06:25: WBC 7.8, RBC 2.87 L, Hgb 7.7 L, Hct 24.8 L, MCV 86.4, MCH 26.8 L , MCHC 31.0 L, RDW Std Deviation 52.2 H, RDW Coeff of Fei 16.3 H, Plt Count 349, MPV 9.1, Immature Gran % (Auto) 2.500 H, Neut % (Auto) 70.0, Lymph % (Auto) 12.9 L, [place] % (Auto) 7.2, Eos % (Auto) 7.0 H, Baso % (Auto) 0.4, Absolute Neuts (auto) 5.4, Absolute Lymphs (auto) 1.00, Nucleated RBC % 0 07/12/22 06:25: Sodium 137, Potassium 4.3, Chloride 108 H, Carbon Dioxide 22.0, Anion Gap 7, BUN 16, Creatinine 0.78, Estim Creat Clear Calc 118.83, Est GFR (MDRD) Af Amer 134, Est GFR (MDRD) Non-Af 111, BUN/Creatinine Ratio 20.6 H, Glucose 167 H, Calcium 9.6, Total Bilirubin 0.40, AST 34, ALT 84 H, Alkaline Phosphatase 192 H, Total Protein 6.8, Albumin 2.0 L, Globulin 4.8 H, Albumin/Globulin Ratio 0.4 L 07/12/22 06:39: POC Glucose 143 H 07/12/22 11:21: POC Glucose 230 H Micro: Microbiology 07/11/22 15:35 Wound - Sacral Gram Stain - Final 07/11/22 15:35 Wound - Sacral Wound Culture - Preliminary GNR non spanish interpreter 07/10/22 10:05 Urine, Catheterized Urine Culture - Preliminary Pseudomonas aeroginosa 07/09/22 13:05 Stool Stool Lactoferrin - Final 07/09/22 13:05 Stool Enteric Bacteriology - Final 07/09/22 13:05 Stool C. difficile DNA Amplification - Final 07/09/22 13:08 Stool Stool Occult Blood (MARTAH) - Final Occult Blood Positive Physical Exam Const alert, oriented x3 and well nourished Constitutional Narrative: Morbidly obese white male sitting up in bed watching TV, appears comfortable nontoxic HEENT head/scalp atraumatic and moist oral mucous membranes Head and Scalp: normocephalic Resp normal respiratory effort, no retractions, no use of accessory muscles and clear to auscultation bilaterally Auscultation: Negative for crackles, rhonchi or wheezes Cardio regular rate, regular rhythm, S1 normal heart sound, S2 normal heart sound, no murmurs, no rub, no gallops, no clicks and no JVD GI normal to inspection, nondistended, normoactive bowel sounds, soft to palpation and non-tender Extremity no clubbing, cyanosis or edema Extremity Narrative: 2+ pedal pulses Neuro Neuro Narrative: Bilateral lower extremity paraplegia-chronic, no other neurological deficits Speech: speech normal Psych affect normal Assessment & Plan Assessment/Plan (1) Acute on chronic anemia: (2) Guaiac positive stools: (3) ION (acute kidney injury): (4) Diarrhea: (5) Hyperkalemia: (6) Transaminitis: (7) Infected decubitus ulcer: PLAN: Plan Acute nausea/vomiting/diarrhea -Patient presented with abdominal pain/nausea/vomiting -Improving at this point and patient tolerating regular diet -Previous CT of the abdomen pelvis showed features suggestive of acute infectious or inflammatory colitis at his last admission on 06/05/22 -enteric panel and C. difficile are negative -Plan for EGD and colonoscopy tomorrow -Will need continued fecal management system to avoid contamination of the cl vahid wound during prep -Continue current ordered diet -GI following as patient has had 3 admissions now with similar presentation and no etiology identified Acute hyperkalemia -Resolved ION -Resolved -Discontinue IV fluids Acute on chronic anemia -Baseline serum hemoglobin is typically between 8.5 and 10 -Hemoglobin has appeared to stabilize in the mid 7 range at this time -Hemoccult is positive -GI following and plan is for EGD and colonoscopy tomorrow Suspected GI bleed -Hemoccult is positive -GI following--> EGD and colonoscopy tomorrow -Suspect lower -Prophylactic heparin on hold Chronic sacral decubitus with acute infection -Wound care is following -Culture shows polymicrobial -Continue vancomycin and Zosyn -Debridement completed on 07/11/2022 -White count remains normalized -General surgery has been consulted for diverting ostomy however the patient would not likely be able to have this done here secondary to his BMI -Patient will likely need placement as his mother who is in her 80s is having difficulty helping care for him at home and his daughter 16 years old -ID is following-appreciate input Transaminitis -Resolving Debility -We will likely need placement at discharge -Case management following DM-2 -Patient is on U500 insulin at baseline which is on hold for now -May need to reinitiate once p.o. intake is back to baseline--> continue to monitor blood glucose closely -A.m. glucose was 167 -Hold home Trulicity -SSI -Accu-Cheks 3 times daily and at bedtime -A1c is 6.0 Hypertension -Continue to hold home Lasix -Continue home amlodipine -As needed labetalol available for systolic greater than 160 Hyperlipidemia -Continue home statin Paraplegia -Patient is at baseline ROX -Nocturnal CPAP with 4 L bleed -Patient has home unit and okay to use Morbid obesity -Complicates treatment, prognosis, outcomes -BMI is 53.7 -Recommend weight loss DVT prophylaxis -No chemoprophylaxis secondary to bleeding and guaiac positive stool -SCDs CODE STATUS -Full code as per discussion on admission the emergency department Charges/Coding Visit Charges Inpatient E&M: 37808 Subs Hosp L2
--- NOTE | 2022-07-12 14:58 | CASEMGMT ---
Social Work CC reached out. Pt has been accepted. SW will consult with MD Bradford on when to start precert. PLAN: [facility], pending medically ready and precert JAVAD Villagomez
[2022-07-12] MEDS: Bisacodyl 5 MG Tablet 20 MG PO (15:28)
[2022-07-12 15:58] VITALS: BP 131/71; PULSE 80; RESP 18; TEMP 36.7; O2SAT 95
[2022-07-12] MEDS: Polyethylene Glycol 3350 BOWEL PREP PO (16:36)
[2022-07-12] MEDS: LURASIDONE HCL 20 MG TABLET 60 MG PO (16:42)
[2022-07-12] MEDS: Insulin Lispro 100 UNIT/ML INSULN.PEN SC (16:43)
[2022-07-12 17:10] LABS: Bedside Glucose 171 mg/dL (74-106)
--- NOTE | 2022-07-12 21:51 | PCM.RX.CS ---
Consult Pharmacy has been consulted to manage selected antiobiotic: Vancomycin Type of Consult: Follow-up Labs: Sodium 137 mmol/L (136-145) 07/12/22 06:25 Potassium 4.3 mmol/L (3.5-5.1) 07/12/22 06:25 Chloride 108 mmol/L (98-107) H 07/12/22 06:25 Carbon Dioxide 22.0 mmol/L (21.0-32.0) 07/12/22 06:25 Anion Gap 7 (5-15) 07/12/22 06:25 BUN 16 mg/dL (7-18) 07/12/22 06:25 Creatinine 0.78 mg/dL (0.70-1.30) 07/12/22 06:25 Est GFR (MDRD) Af Amer 134 mL/min (>60) 07/12/22 06:25 Est GFR (MDRD) Non-Af 111 mL/min (>60) 07/12/22 06:25 BUN/Creatinine Ratio 20.6 RATIO (10-20) H 07/12/22 06:25 Glucose 167 mg/dL (74-106) H 07/12/22 06:25 Vancomycin Trough 16.0 ug/mL (5.0-15.0) H 07/12/22 20:06 Microbiology: Microbiology 07/11/22 15:35 Wound - Sacral Gram Stain - Final 07/11/22 15:35 Wound - Sacral Wound Culture - Preliminary GNR non improvement engineer 07/10/22 10:05 Urine, Catheterized Urine Culture - Preliminary Pseudomonas aeroginosa 07/09/22 13:05 Stool Stool Lactoferrin - Final 07/09/22 13:05 Stool Enteric Bacteriology - Final 07/09/22 13:05 Stool C. difficile DNA Amplification - Final 07/09/22 13:08 Stool Stool Occult Blood (MARTHA) - Final Occult Blood Positive Goal Trough: 15-20 mcg/mL Pharmacy Plan for Drug Dosing: Pharmacy Service will continue to monitor and adjust dosing as required. TROUGH 16.0 @ 11 HOURS. NO CHANGES, FOLLOW UP TROUGH IN 2 DAYS Follow-Up Labs: Trough Vancomycin Labs to be done on [date and time ordered]: 07/14 @ 2030
[2022-07-12 22:00] VITALS: BP 155/78; PULSE 88; RESP 18; TEMP 36.1; O2SAT 98
[2022-07-12] MEDS: Doxazosin 1 MG Tablet PO (23:14)
[2022-07-12] MEDS: Atorvastatin Calcium 40 MG Tablet PO (23:14)
[2022-07-12 23:15] VITALS: O2SAT 98
[2022-07-13 00:05] LABS: Bedside Glucose 147 mg/dL (74-106)
[2022-07-13 03:52] VITALS: BP 141/78; PULSE 74; RESP 16; TEMP 35.9; O2SAT 100
[2022-07-13 03:53] VITALS: O2SAT 100
[2022-07-13 06:08] LABS: Hematocrit 25.9 % (40-54); Mean Corp Hgb Conc 30.9 g/dL (32-36); Mean Corpuscular Hgb 26.3 pg (27.0-32.0); Mean Corpuscular Volume 85.2 fL (80-94); POSITIVE COUNT YES; POSITIVE MORPHOLOGY YES; Platelet Count 411 K/mm3 (150-450); RBC Distribution Width CV 16.3 % (11.6-14.6); RBC Distribution Width SD 51.1 fl (35.1-43.9); Red Blood Count 3.04 M/mm3 (4.6-6.2); White Blood Count 6.4 K/mm3 (4.4-11.0)
[2022-07-13 06:20] LABS: International Normalized Ratio 1.3; Prothrombin Time (Protime)PT. 15.4 SECONDS (11.7-14.9)
[2022-07-13 06:21] LABS: Partial Thromboplast Time 42.1 Seconds (24.1-36.2)
[2022-07-13 06:24] LABS: Differential Indicated MANUAL DIFF
[2022-07-13 06:41] LABS: Anisocytosis 1+; Platelet Estimate ADEQUATE (ADEQ)
[2022-07-13 06:45] LABS: Absolute Lymphocyte Count 1.03 X10^3/uL (0.83-4.51); Absolute Neutrophil Count 3.8 X10^3/uL (2.0-7.7); Neutrophil-Band 2 % (0-5); Neutrophil-Segmented 57 % (47-70); Total Cells Counted 100 (MANUAL DIFF)
[2022-07-13 06:46] LABS: Eosinophil 13 % (0-5); Lymphocyte 16 % (19-41); Monocyte 3 % (0-10); Myelocyte 9 % (0-0)
[2022-07-13 06:58] LABS: Anion Gap 8 (5-15); BUN 12 mg/dL (7-18); BUN/Creat Ratio 18.7 RATIO (10-20); Calcium,Total 9.3 mg/dL (8.5-10.1); Chloride 106 mmol/L (98-107); Creatinine, Serum 0.64 mg/dL (0.70-1.30); EST Glomerular Filtration Rate 138 mL/min (>60); Est Glom Filt Rate - Afr Amer 167 mL/min (>60); Estimated Creatinine Clearance 144.83 ml/min; Glucose 160 mg/dL (74-106); Potassium 4.2 mmol/L (3.5-5.1); Sodium Level 137 mmol/L (136-145)
[2022-07-13 07:10] LABS: Bedside Glucose 158 mg/dL (74-106)
--- NOTE | 2022-07-13 07:36 | PN_ITS ---
Subjective Subjective Completed his entire prep last night. However he has not had much output which in his rectal tube. He denies any abdominal pain, bloating or nausea. Objective Data Objective Data Vital Signs: Vital Signs Temp Pulse Resp BP Pulse Ox O2 Del Method 96.7 F L 74 16 141/78 H 100 CPAP 07/13/22 03:52 07/13/22 03:52 07/13/22 03:52 07/13/22 03:52 07/13/22 03:53 07/13/22 03:53 Oxygen Delivery Method CPAP Weight: 374 lb 12.573 oz Body Mass Index (BMI) 50.9 Intake & Output: Intake and Output for Last 24 Hours 07/11/22 07/12/22 07/13/22 23:59 23:59 23:59 Intake Total 3545.00 / 3545.00 2390 / 2740 470 / 470 Output Total 5150 / 5150 2975 / 3675 1250 / 1250 Balance -1605.00 / -1605.00 -585 / -935 -780 / -780 Lab / Micro Data Result Diagrams: 07/13/22 05:25 07/13/22 05:25 Labs: Laboratory Results - last 24 hr 07/12/22 11:21: POC Glucose 230 H 07/12/22 16:49: POC Glucose 171 H 07/12/22 20:06: Vancomycin Trough 16.0 H 07/12/22 23:11: POC Glucose 147 H 07/13/22 05:25: WBC 6.4, RBC 3.04 L, Hgb 8.0 L, Hct 25.9 L, MCV 85.2, MCH 26.3 L , MCHC 30.9 L, RDW Std Deviation 51.1 H, RDW Coeff of Fei 16.3 H, Plt Count 411, MPV 9.0, Neut % (Auto) Not Reportable, Absolute Neuts (auto) 3.8, Absolute Lymphs (auto) 1.03, Total Counted 100, Neutrophils % (Manual) 57, Band Neutrophils % 2, Lymphocytes % (Manual) 16 L, Monocytes % (Manual) 3, Eosinophils % (Manual) 13 H, Myelocytes % 9 H, Diff Path Review October [place] [email or web address] Estimate ADEQUATE, Anisocytosis 1+ 07/13/22 05:25: Sodium 137, Potassium 4.2, Chloride 106, Carbon Dioxide 23.0, Anion Gap 8, BUN 12, Creatinine 0.64 L, Estim Creat Clear Calc 144.83, Est GFR (MDRD) Af Amer 167, Est GFR (MDRD) Non-Af 138, BUN/Creatinine Ratio 18.7, Glucose 160 H, Calcium 9.3 07/13/22 05:25: PT 15.4 H, INR 1.3, APTT 42.1 H 07/13/22 06:40: POC Glucose 158 H Micro: Microbiology 07/10/22 10:05 Urine, Catheterized Urine Culture - Final Pseudomonas aeroginosa 07/11/22 15:35 Wound - Sacral Gram Stain - Final 07/11/22 15:35 Wound - Sacral Wound Culture - Preliminary GNR non children's institution attendant 07/09/22 13:05 Stool Stool Lactoferrin - Final 07/09/22 13:05 Stool Enteric Bacteriology - Final 07/09/22 13:05 Stool C. difficile DNA Amplification - Final 07/09/22 13:08 Stool Stool Occult Blood (MARTHA) - Final Occult Blood Positive Physical Exam Const alert, oriented x3 and well nourished HEENT head/scalp atraumatic and moist oral mucous membranes Head and Scalp: normocephalic Resp normal respiratory effort, no retractions, no use of accessory muscles and clear to auscultation bilaterally Auscultation: Negative for crackles, rhonchi or wheezes Cardio regular rate, regular rhythm, S1 normal heart sound, S2 normal heart sound, no murmurs, no rub, no gallops, no clicks and no JVD GI normal to inspection, nondistended, normoactive bowel sounds, soft to palpation and non-tender Extremity no clubbing, cyanosis or edema Extremity Narrative: 2+ pedal pulses Neuro Neuro Narrative: Bilateral lower extremity paraplegia-chronic, no other neurological deficits Speech: speech normal Psych affect normal Assessment & Plan Assessment/Plan (1) Diarrhea: PLAN: Patient presented with abdominal pain/nausea/vomiting. He is not have any abdominal pain at this time. His previous imaging CT of the abdomen pelvis showed features suggestive of acute infectious or inflammatory colitis. There no infectious etiology inflammation and diarrhea determined thus far. I will order a [facility] fecal management system. Plan for EGD and colonoscopy PLAN: Plan Acute nausea/vomiting/diarrhea -Patient presented with abdominal pain/nausea/vomiting -Improving at this point and patient tolerating regular diet -Previous CT of the abdomen pelvis showed features suggestive of acute infectious or inflammatory colitis at his last admission on 06/05/22 -enteric panel and C. difficile are negative -Plan for EGD and colonoscopy tomorrow -Will need continued fecal management system to avoid contamination of the clean wound during prep -Continue current ordered diet -GI following as patient has had 3 admissions now with similar presentation and no etiology identified Acute hyperkalemia -Resolved ION -Resolved -Discontinue IV fluids Acute on chronic anemia -Baseline serum hemoglobin is typically between 8.5 and 10 -Hemoglobin has appeared to stabilize in the mid 7 range at this time -Hemoccult is positive -GI following and plan is for EGD and colonoscopy tomorrow Suspected GI bleed -Hemoccult is positive -GI following--> EGD and colonoscopy tomorrow -Suspect lower -Prophylactic heparin on hold Chronic sacral decubitus with acute infection -Wound care is following -Culture shows polymicrobial -Continue vancomycin and Zosyn -Debridement completed on 07/11/2022 -White count remains normalized -General surgery has been consulted for diverting ostomy however the patient wo uld not likely be able to have this done here secondary to his BMI -Patient will likely need placement as his mother who is in her 80s is having difficulty helping care for him at home and his daughter 16 years old -ID is following-appreciate input Transaminitis -Resolving Debility -We will likely need placement at discharge -Case management following DM-2 -Patient is on U500 insulin at baseline which is on hold for now -May need to reinitiate once p.o. intake is back to baseline--> continue to monitor blood glucose closely -A.m. glucose was 167 -Hold home Trulicity -SSI -Accu-Cheks 3 times daily and at bedtime -A1c is 6.0 Hypertension -Continue to hold home Lasix -Continue home amlodipine -As needed labetalol available for systolic greater than 160 Hyperlipidemia -Continue home statin Paraplegia -Patient is at baseline ROX -Nocturnal CPAP with 4 L bleed -Patient has home unit and okay to use Morbid obesity -Complicates treatment, prognosis, outcomes -BMI is 53.7 -Recommend weight loss DVT prophylaxis -No chemoprophylaxis secondary to bleeding and guaiac positive stool -SCDs CODE STATUS -Full code as per discussion on admission the emergency department Charges/Coding Visit Charges Inpatient E&M: 62467 Subs Hosp L2
--- NOTE | 2022-07-13 07:42 | RAD_ITS ---
STUDY: X-RAY - ABDOMEN/PELVIS REASON FOR EXAM: Male, 52 years old. Constipation and no results from bowel prep -- patient has a fecal tube at this time TECHNIQUE: Single AP view of the abdomen / pelvis. COMPARISON: None. FINDINGS: There is an unremarkable bowel gas pattern. Mild gaseous distention of the colon. Residual fecal material is seen in the rectum. The visualized liver, spleen and kidneys are grossly normal in size and morphology. Normal soft tissue structures. There are diffuse degenerative changes of the visualized lumbar spine. The patient is status post multilevel screw and barry fixation of the lower thoracic and lumbar spines. Marked degree of low joint space narrowing of both hip joints. RAD/Abdomen Single View (Portable) IMPRESSION: Residual fecal material is seen in the rectum. Electronically Signed: Andre Irving MD at 8:30 EST ,
[2022-07-13 08:25] VITALS: BP 148/74; PULSE 75; RESP 18; TEMP 36.6; O2SAT 100
[2022-07-13] MEDS: Acetaminophen 325 MG Tablet 650 MG PO (12:13)
[2022-07-13] MEDS: DAKIN'S SOL HALF STRENGTH (=0.25%) 1 APPLIC TOPICAL ×2 (12:14→22:55)
[2022-07-13] MEDS: amLODIPine 10 MG Tablet PO (12:14)
[2022-07-13] MEDS: Nystatin Powder 15gm Bottle 1 APPLIC TOPICAL ×2 (12:14→20:56)
[2022-07-13 12:35] LABS: Bedside Glucose 140 mg/dL (74-106)
[2022-07-13] MEDS: Bisacodyl 5 MG Tablet 20 MG PO (13:29)
--- NOTE | 2022-07-13 16:09 | PN.HOSP_ITS ---
Subjective Subjective No significant issues overnight. Patient states his abdomen is gurgling with the bowel prep for his colonoscopy. No significant output and therefore his colonoscopy was deferred until tomorrow. No specific complaints of at this time other than some abdominal cramping related to his prep. Objective Data Objective Data Vital Signs: Vital Signs Temp Pulse Resp BP Pulse Ox O2 Del Method 97.9 F 75 18 148/74 H 100 Room Air 07/13/22 08:25 07/13/22 08:25 07/13/22 08:25 07/13/22 08:25 07/13/22 08:25 07/13/22 08:25 Oxygen Delivery Method Room Air Weight: 170 kg Body Mass Index (BMI) 50.9 Intake & Output: Intake and Output for Last 24 Hours 07/11/22 07/12/22 07/13/22 23:59 23:59 23:59 Intake Total 3545.00 / 3545.00 2390 / 2740 1130 / 1130 Output Total 5150 / 5150 2975 / 3675 2250 / 2250 Balance -1605.00 / -1605.00 -585 / -935 -1120 / -1120 Lab / Micro Data Result Diagrams: 07/13/22 05:25 07/13/22 05:25 Labs: Laboratory Results - last 24 hr 07/12/22 16:49: POC Glucose 171 H 07/12/22 20:06: Vancomycin Trough 16.0 H 07/12/22 23:11: POC Glucose 147 H 07/13/22 05:25: WBC 6.4, RBC 3.04 L, Hgb 8.0 L, Hct 25.9 L, MCV 85.2, MCH 26.3 L , MCHC 30.9 L, RDW Std Deviation 51.1 H, RDW Coeff of Fei 16.3 H, Plt Count 411, MPV 9.0, Neut % (Auto) Not Reportable, Absolute Neuts (auto) 3.8, Absolute Lymphs (auto) 1.03, Total Counted 100, Neutrophils % (Manual) 57, Band Neutrophils % 2, Lymphocytes % (Manual) 16 L, Monocytes % (Manual) 3, Eosinophils % (Manual) 13 H, Myelocytes % 9 H, Diff Path Review May , Platelet Estimate ADEQUATE, Anisocytosis 1+ 07/13/22 05:25: Sodium 137, Potassium 4.2, Chloride 106, Carbon Dioxide 23.0, Anion Gap 8, BUN 12, Creatinine 0.64 L, Estim Creat Clear Calc 144.83, Est GFR (MDRD) Af Amer 167, Est GFR (MDRD) Non-Af 138, BUN/Creatinine Ratio 18.7, Glu cose 160 H, Calcium 9.3 07/13/22 05:25: PT 15.4 H, INR 1.3, APTT 42.1 H 07/13/22 06:40: POC Glucose 158 H 07/13/22 12:13: POC Glucose 140 H Micro: Microbiology 07/11/22 15:35 Wound - Sacral Gram Stain - Final 07/11/22 15:35 Wound - Sacral Wound Culture - Preliminary GNR non customer experience specialist 07/10/22 10:05 Urine, Catheterized Urine Culture - Final Pseudomonas aeroginosa 07/09/22 13:05 Stool Stool Lactoferrin - Final 07/09/22 13:05 Stool Enteric Bacteriology - Final 07/09/22 13:05 Stool C. difficile DNA Amplification - Final 07/09/22 13:08 Stool Stool Occult Blood (MARTHA) - Final Occult Blood Positive Radiography Diagnostic Testing: Radiology Impression KUB X-Ray 07/13/22 07:42 IMPRESSION: Residual fecal material is seen in the rectum. Electronically Signed: Andre Irving MD at 8:30 EST Reading Location ID and State: [address] [place] [address] , Service support , Physical Exam Const alert, oriented x3 and well nourished Constitutional Narrative: Morbidly obese white male sitting up in bed watching TV, appears comfortable, nontoxic HEENT head/scalp atraumatic and moist oral mucous membranes HEENT Narrative: Mallampati 3-4, no thrush Head and Scalp: normocephalic Resp normal respiratory effort, no retractions, no use of accessory muscles and clear to auscultation bilaterally Auscultation: Negative for crackles, rhonchi or wheezes Cardio regular rate, regular rhythm, S1 normal heart sound, S2 normal heart sound, no murmurs, no rub, no gallops, no clicks and no JVD GI soft to palpation and non-tender GI Narrative: Sounds are hyperactive, abdomen is soft and nontender, no distention, FMS in place Extremity no clubbing, cyanosis or edema Extremity Narrative: 2+ pedal pulses Neuro Neuro Narrative: Bilateral lower extremity paraplegia-chronic, no other neurological deficits Speech: speech normal Psych affect normal Assessment & Plan Assessment/Plan (1) Acute on chronic anemia: (2) Guaiac positive stools: (3) ION (acute kidney injury): (4) Diarrhea: (5) Hyperkalemia: (6) Transaminitis: (7) Infected decubitus ulcer: PLAN: Plan Acute nausea/vomiting/diarrhea -Patient presented with abdominal pain/nausea/vomiting -Improving at this point and patient tolerating regular diet -Previous CT of the abdomen pelvis showed features suggestive of acute infectious or inflammatory colitis at his last admission on 06/05/22 -enteric panel and C. difficile are negative -Plan for EGD and colonoscopy tomorrow now with poor prep in the last 24 hours -Will need continued fecal management system to avoid contamination of the clean wound during prep -Continue current ordered diet Acute on chronic anemia -Baseline serum hemoglobin is typically between 8.5 and 10 -Hemoglobin up to 8.0 today -Hemoccult was positive -GI following and plan is for EGD and colonoscopy tomorrow -Was supposed to be today however had to be deferred secondary to poor prep for colonoscopy Suspected GI bleed -Hemoccult is positive -GI following--> EGD and colonoscopy tomorrow -Suspect lower -Prophylactic heparin on hold Chronic sacral decubitus with acute infection -Wound care is following -Culture shows polymicrobial -Continue vancomycin and Zosyn -Debridement completed on 07/11/2022 -White count remains normalized -General surgery has been consulted for diverting ostomy however the patient would not likely be able to have this done here secondary to his BMI -Patient will likely need placement as his mother who is in her 80s is having difficulty helping care for him at home and his daughter 16 years old -ID is following-appreciate input Debility -We will likely need placement at discharge -Case management following DM-2 -Patient is on U500 insulin at baseline which is on hold for now -May need to reinitiate once p.o. intake is back to baseline--> continue to monitor blood glucose closely -A.m. glucose was 167 -Hold home Trulicity -SSI -Accu-Cheks 3 times daily and at bedtime -A1c is 6.0 Hypertension -Continue to hold home Lasix--> restart when p.o. diet has initiated back to baseline -Continue home amlodipine -As needed labetalol available for systolic greater than 160 Hyperlipidemia -Continue home statin Paraplegia -Patient is at baseline ROX -Nocturnal CPAP with 4 L bleed -Patient has home unit and okay to use Morbid obesity -Complicates treatment, prognosis, outcomes -BMI is 53.7 -Recommend weight loss DVT prophylaxis -No chemoprophylaxis secondary to bleeding and guaiac positive stool -SCDs CODE STATUS -Full code as per discussion on admission the emergency department Charges/Coding Visit Charges Inpatient E&M: 49172 Subs Hosp L2
[2022-07-13 16:25] VITALS: BP 144/88; PULSE 95; RESP 18; TEMP 36.4; O2SAT 99
[2022-07-13] MEDS: Polyethylene Glycol 3350 BOWEL PREP PO (16:46)
[2022-07-13 16:50] LABS: Bedside Glucose 152 mg/dL (74-106)
[2022-07-13] MEDS: LURASIDONE HCL 20 MG TABLET 60 MG PO (17:27)
[2022-07-13] MEDS: Juven (unflavored) Packet 1 PACKET PO (17:27)
--- NOTE | 2022-07-13 20:00 | NURSING ---
pt fecal management leaking all over wound. dressing changed. Fecal management system changed 45cc inflated back into balloon. Will monitor
[2022-07-13 20:55] VITALS: BP 140/81; PULSE 93; RESP 18; TEMP 37; O2SAT 94
[2022-07-13] MEDS: Doxazosin 1 MG Tablet PO (20:55)
[2022-07-13] MEDS: Atorvastatin Calcium 40 MG Tablet PO (20:56)
[2022-07-13 21:26] LABS: Bedside Glucose 142 mg/dL (74-106)
[2022-07-14] VITALS (8 sets, daily range): BP systolic 112–146; BP diastolic 59–76; PULSE 70–98; RESP 16–20; TEMP 36.6–36.9; O2SAT 96–99
--- NOTE | 2022-07-14 01:33 | NURSING ---
Pt fecal management system leaking. Pt cleaned up and dressing changed and linen changed. Pt placed on his side so the fecal management running better. stool is caramel color
[2022-07-14] MEDS: Acetaminophen 325 MG Tablet 650 MG PO ×2 (03:22→21:05)
[2022-07-14 06:40] LABS: Bedside Glucose 146 mg/dL (74-106)
[2022-07-14 07:44] LABS: Hematocrit 26.8 % (40-54); Hemoglobin 8.3 g/dL (13.0-16.5); Mean Corpuscular Hgb 26.4 pg (27.0-32.0); Mean Corpuscular Volume 85.4 fL (80-94); Mean Platelet Vol. 8.8 fl (6.2-12.0); POSITIVE COUNT YES; POSITIVE MORPHOLOGY YES; Platelet Count 446 K/mm3 (150-450); RBC Distribution Width CV 16.5 % (11.6-14.6); RBC Distribution Width SD 50.9 fl (35.1-43.9); Red Blood Count 3.14 M/mm3 (4.6-6.2); White Blood Count 7.1 K/mm3 (4.4-11.0)
[2022-07-14 07:50] LABS: Differential Indicated MANUAL DIFF
[2022-07-14 08:09] LABS: Anion Gap 7 (5-15); BUN 10 mg/dL (7-18); BUN/Creat Ratio 13.8 RATIO (10-20); Calcium,Total 9.3 mg/dL (8.5-10.1); Chloride 108 mmol/L (98-107); Creatinine, Serum 0.72 mg/dL (0.70-1.30); EST Glomerular Filtration Rate 120 mL/min (>60); Est Glom Filt Rate - Afr Amer 146 mL/min (>60); Estimated Creatinine Clearance 128.73 ml/min; Glucose 159 mg/dL (74-106); Sodium Level 137 mmol/L (136-145)
[2022-07-14 08:27] LABS: Eosinophil 14 % (0-5); Lymphocyte 20 % (19-41); Metamyelocyte 1 % (0-1); Monocyte 8 % (0-10); Myelocyte 1 % (0-0); Neutrophil-Band 3 % (0-5); Neutrophil-Segmented 53 % (47-70); Total Cells Counted 100 (MANUAL DIFF)
[2022-07-14 08:30] LABS: Platelet Estimate ADEQUATE (ADEQ)
[2022-07-14 08:31] LABS: Tear Drop Cell RARE
--- NOTE | 2022-07-14 09:02 | CASEMGMT ---
Updated [facility] status at this time.
[2022-07-14 09:21] LABS: Pathologist Review Reviewed
--- NOTE | 2022-07-14 10:02 | PCM.PN.SRG ---
Subjective Subjective Patient has colonoscopy today as yesterday he had a poor prep. Objective Data Objective Data Vital Signs: Vital Signs Temp Pulse Resp BP Pulse Ox O2 Del Method O2 Flow Rate 98.4 F 83 18 140/74 H 99 Room Air 4 07/14/22 09:10 07/14/22 09:10 07/14/22 09:10 07/14/22 09:10 07/14/22 09:10 07/14/22 09:10 07/14/22 03:10 Oxygen Flow Rate (L/min) 4 Oxygen Delivery Method Room Air Weight: 377 lb 6.902 oz Body Mass Index (BMI) 50.9 Intake & Output: Intake and Output for Last 24 Hours 07/12/22 07/13/22 07/14/22 23:59 23:59 23:59 Intake Total 2390 / 2740 2230 / 2230 485.5 / 485.5 Output Total 2975 / 3675 5675 / 5675 975 / 975 Balance -585 / -935 -3445 / -3445 -489.5 / -489.5 Lab / Micro Data Result Diagrams: 07/14/22 07:15 07/14/22 07:15 Labs: Laboratory Results - last 24 hr 07/13/22 05:25: Diff Path Review Reviewed 07/13/22 12:13: POC Glucose 140 H 07/13/22 16:29: POC Glucose 152 H 07/13/22 20:54: POC Glucose 142 H 07/14/22 06:13: POC Glucose 146 H 07/14/22 07:15: WBC 7.1, RBC 3.14 L, Hgb 8.3 L, Hct 26.8 L, MCV 85.4, MCH 26.4 L, MCHC 31.0 L, RDW Std Deviation 50.9 H, RDW Coeff of Fei 16.5 H, Plt Count 446, MPV 8.8, Neut % (Auto) Not Reportable, Absolute Neuts (auto) 4.0, Absolute Lymphs (auto) 1.40, Total Counted 100, Neutrophils % (Manual) 53, Band Neutrophils % 3, Lymphocytes % (Manual) 20, Monocytes % (Manual) 8, Eosinophils % (Manual) 14 H, Metamyelocytes % 1, Myelocytes % 1 H, Platelet Estimate ADEQUATE, Tear Drop Cells RARE 07/14/22 07:15: Sodium 137, Potassium 4.0, Chloride 108 H, Carbon Dioxide 22.0, Anion Gap 7, BUN 10, Creatinine 0.72, Estim Creat Clear Calc 128.73, Est GFR (MDRD) Af Amer 146, Est GFR (MDRD) Non-Af 120, BUN/Creatinine Ratio 13.8, Glucose 159 H, Calcium 9.3 Micro: Microbiology 07/11/22 15:35 Wound - Sacral Gram Stain - Final 07/11/22 15:35 Wound - Sacral Wound Culture - Final Proteus mirabilis 07/09/22 13:08 Stool Ova and Parasites - Final 07/10/22 10:05 Urine, Catheterized Urine Culture - Final Pseudomonas aeroginosa 07/09/22 13:05 Stool Stool Lactoferrin - Final 07/09/22 13:05 Stool Enteric Bacteriology - Final 07/09/22 13:05 Stool C. difficile DNA Amplification - Final 07/09/22 13:08 Stool Stool Occult Blood (MARTHA) - Final Occult Blood Positive Physical Exam Const oriented x3 and no apparent distress Resp normal respiratory effort GI normal to inspection, nondistended, normoactive bowel sounds Assessment & Plan Assessment/Plan (1) Decubitus ulcer of sacral region, stage 4: (2) Paraplegia: (3) Morbid (severe) obesity due to excess calories: (4) Incontinence 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: PLAN: Plan continue wound care per wound nurse. no plans for further surgical intervention. Discussed with patient would consider a diverting colostomy/end colostomy when patient has a weight around 300-325 lbs. Coby Abbott M.D. Pager: [phone] [facility] [address] [place] [address], [facility], [address] [place] [address] Office: [phone]
--- NOTE | 2022-07-14 11:00 | COLBX_PTH ---
PATIENT: SERENITY MACHADO LOC: MS3 U#:[id number] AGE/SX: 52/M [place] [facility] [place]: Dr. Kevan Villar DO : 1970 BED: 1 DIS: 07/14/2022 SPEC #: [id number] RECD: 07/14/22 12:21 STATUS: JASPREET RETomer #: [id number] NAVI: 07/14/22 11:[address]: Dexter Pina DEPT: SURGICAL PATHOLOGY RECD BY: Rivas Duran ENTERED: 07/14/22 13:57 SP TYPE: COLON BX OTHR DR: MD Dr. Jimmie Ballard MD Dr. Kathryn Lee, DO Dr. Mark Tereletsky, DO Dr. Robert Leininger, MD Dr. Tamera Robotham, MD Tissues: A - Duodenum, NOS B - Gastric mucous membrane C - Ascending colon D - COLON BIOPSY Procedures: Surgery Specimen Level IV HEADER OPERATION: Colonoscopy, EGD ([facility] [place]) PRE-OP DIAGNOSIS: Diarrhea TISSUE SUBMITTED: A - Duodenum ulcer biopsy, B - Gastric body biopsy, C - Ascending colon polyp, D - Random colon biopsies MICROSCOPIC DIAGNOSIS A. Duodenal ulcer, biopsy: Gastric metaplasia and focal acute inflammation. B. Gastric body, biopsy: Chronic gastritis. See comment. C. Ascending colon polyp, biopsy: Tubular adenomas. D. Colon, random biopsy: No pathologic change. AM:bowen 07/17/2022 COMMENT B. The results of immunohistochemistry for Helicobacter pylori will be reported separately ([id number]). MICROSCOPIC DESCRIPTION Slides are reviewed. GROSS DESCRIPTION A - Received in fixative is one container labeled with the patient's name and designated duodenal ulcer biopsy. The specimen consists of multiple irregular fragments of light torres soft tissue that in aggregate measure 1 x 0.5 x 0.1 cm. The specimen is totally submitted in one cassette. B - Received in fixative is one container labeled with the patient's name and designated gastric body biopsy. The specimen consists of three irregular fragments of light torres soft tissue that in aggregate measure 0.8 x 0.5 x 0.1 cm. The specimen is totally submitted in one cassette. C - Received in fixative is one container labeled with the patient's name and designated ascending colon polyp. The specimen consists of three torres polyps ranging in size from 1.5 to 2 cm. No distinct stalks are identified. Each polyp is bisected and totally submitted (one) in each cassette with a total of three cassettes. D - Received in fixative is one container labeled with the patient's name and designated random colon biopsy. The specimen consists of multiple irregular fragments of light torres soft tissue that in aggregate measure 1 x 0.5 x 0.1 cm. The specimen is totally submitted in one cassette. / AM:bowen 07/16/2022 TC:1 CPT: 23087 x4
--- NOTE | 2022-07-14 11:00 | IMM_PTH ---
PATIENT: SERENITY MACHADO LOC: MS3 U#:[id number] AGE/SX: 52/M [place] [facility] [place]07/09/[address]: Dr. Kevan Villar DO : 1970 BED: 1 DIS: 07/14/2022 SPEC #: [id number] RECD: 07/14/22 13:33 STATUS: JASPREET REQ #: [id number] NAVI: 07/14/22 11:[address]: Dexter Pina DEPT: IMMUNOHISTOCHEMISTRY RECD BY: Shannon Herrmann ENTERED: 07/14/22 13:34 SP TYPE: IMMUNO OTHR DR: MD Dr. Jimmie Ballard MD Dr. Kathryn Lee, DO Dr. Mark Tereletsky, DO Dr. Robert Leininger, MD Dr. Tamera Robotham, MD Tissues: B - Stomach, NOS Procedures: H Pylori (initial) PHYSICIAN & INSTITUTION [place] [id number] SPECIMEN INFORMATION: Tissue Source: B ? Gastric body biopsy Clinical Info: Diarrhea Specimen Number: [id number] CPT code: 19856 METHODOLOGY: Deparaffinized sections of prefer/formalin-fixed tissue or PAP/DQ stained slides are incubated with monoclonal/polyclonal antibodies/oligonucleotide probes. Localization is made via biotin free immunoperoxidase method. Appropriate controls are performed and reacted as expected. Results on target cell population are indicated in the following table: RESULTS: ANTIBODY / CLONE RESULT Block B H Pylori (polyclonal) negative These tests were developed and their performance characteristics determined by [facility]. They may not have been cleared or approved by the U.S. Food and Drug Administration. The FDA has determined that such clearance or approval is not necessary. The above immunohistochemical/dualISH markers are ordered and reviewed by the Pathologist. INTERPRETATION: B. Gastric body, biopsy: Negative for Helicobacter pylori organisms. AM:bowen 07/17/2022
--- NOTE | 2022-07-14 12:08 | OP.EGD_ITS ---
Patient Name: Shekhar Yo Procedure Date: 07/14/2022 10:42 AM Date of : 1970 Age: 52 Procedure: Upper GI endoscopy Indications: Epigastric abdominal pain, Failure to respond to medical treatment Providers: Dexter Pina DO Medicines: Monitored Anesthesia Care Patient Profile: This is a 52 year old male. Refer to note in patient chart for documentation of history and physical. Patient has symptoms of acute abdominal distention and chronic dyspepsia. Complications: No immediate complications. Procedure: Pre-Anesthesia Assessment: - Prior to the procedure, a History and Physical was performed, and patient medications and allergies were reviewed. The patient is competent. The risks and benefits of the procedure and the sedation options and risks were discussed with the patient. All questions were answered and informed consent was obtained. Patient identification and proposed procedure were verified by the physician. Mental Status Examination: alert and oriented. Prophylactic Antibiotics: The patient does not require prophylactic antibiotics. Prior Anticoagulants: The patient has taken no previous anticoagulant or antiplatelet agents. ASA Grade Assessment: II - A patient with mild systemic disease. After reviewing the risks and benefits, the patient was deemed in satisfactory condition to undergo the procedure. The anesthesia plan was to use monitored anesthesia care (MAC). Immediately prior to administration of medications, the patient was re-assessed for adequacy to receive sedatives. The heart rate, respiratory rate, oxygen saturations, blood pressure, adequacy of pulmonary ventilation, and response to care were monitored throughout the procedure. The physical status of the patient was re-assessed after the procedure. After obtaining informed consent, the endoscope was passed under direct vision. Throughout the procedure, the patient's blood pressure, pulse, and oxygen saturations were monitored continuously. The colonoscope was introduced through the mouth, and advanced to the second part of duodenum. The upper GI endoscopy was accomplished without difficulty. The patient tolerated the procedure well. Scope In: 11:16:35 AM Scope Out: 11:23:25 AM Total Procedure Duration Time 0 hours 6 minutes 50 seconds Findings: No gross lesions were noted in the entire esophagus. A hiatal hernia was present. Localized moderate inflammation characterized by congestion (edema), erosions, erythema and granularity was found in the gastric body. Biopsies were taken with a cold forceps for histology. Verification of patient identification for the specimen was done. Estimated blood loss was minimal. One oozing cratered duodenal ulcer with a visible vessel was found in the duodenal bulb. The lesion was 5 mm in largest dimension. Biopsies were taken with a cold forceps for histology. Verification of patient identification for the specimen was done. Estimated blood loss was minimal. Coagulation for hemostasis using heater probe was successful. Estimated blood loss was minimal. Impression: - No gross lesions in esophagus. - Hiatal hernia. - Chronic gastritis. Biopsied. - One oozing duodenal ulcer with a visible vessel. Biopsied. Treated with a heater probe. Recommendation: - Discharge patient to home. - Resume previous diet. - Continue present medications. - Await pathology results. - Repeat upper endoscopy in 3 months for surveillance. - Protonix 40 mg p.o. twice daily - Pancreatic enzymes 1-2 tabs p.o. with each meal - Use sucralfate tablets 1 gram PO QID for 4 days. Procedure Code(s): --- Professional --- 17325, 59, Esophagogastroduodenoscopy, flexible, transoral; with control of bleeding, any method 58086, Esophagogastroduodenoscopy, flexible, transoral; with biopsy, single or multiple CPT copyright 2017 [employer]. All rights reserved. The codes documented in this report are preliminary and upon direct care staffer review may be revised to meet current compliance requirements. Dexter Pina DO 07/14/2022 12:07:45 PM This report has been signed electronically. Number of Addenda: 0 Note Initiated On: 07/14/2022 10:42 AM
--- NOTE | 2022-07-14 12:09 | OP.CCLET_ITS ---
07/14/2022 Jimmie Rand MD [address] [place] [address] [place] [address] Re : Upper GI endoscopy procedure for Shekharkathrin Yo Dear Dr. Rand This procedure was performed on Thursday, July 14, 2022. My impressions and recommendations are as follows: Impressions : - No gross lesions in esophagus. - Hiatal hernia. - Chronic gastritis. Biopsied. - One oozing duodenal ulcer with a visible vessel. Biopsied. Treated with a heater probe. Recommendations : - Discharge patient to home. - Resume previous diet. - Continue present medications. - Await pathology results. - Repeat upper endoscopy in 3 months for surveillance. - Protonix 40 mg p.o. twice daily - Pancreatic enzymes 1-2 tabs p.o. with each meal - Use sucralfate tablets 1 gram PO QID for 4 days. My findings are described in the full procedure note, which is enclosed. If I can be of further assistance, please feel free to contact me at . Sincerely, Dexter Pina, 07/14/2022 12:07:45 PM This report has been signed electronically.
--- NOTE | 2022-07-14 12:12 | OP.COLON_ITS ---
Patient Name: Shekhar Yo Procedure Date: 07/14/2022 11:23 AM Date of : 1970 Age: 52 Procedure: Colonoscopy Indications: Chronic diarrhea Providers: Dexter Pina DO Medicines: Monitored Anesthesia Care Patient Profile: This is a 52 year old male. Refer to note in patient chart for documentation of history and physical. Patient has symptoms of acute abdominal distention and chronic dyspepsia. Last Colonoscopy: none. The patient's first colonoscopy is today. Complications: No immediate complications. Procedure: Pre-Anesthesia Assessment: - Prior to the procedure, a History and Physical was performed, and patient medications and allergies were reviewed. The patient is competent. The risks and benefits of the procedure and the sedation options and risks were discussed with the patient. All questions were answered and informed consent was obtained. Patient identification and proposed procedure were verified by the physician. Mental Status Examination: alert and oriented. Prophylactic Antibiotics: The patient does not require prophylactic antibiotics. Prior Anticoagulants: The patient has taken no previous anticoagulant or antiplatelet agents. ASA Grade Assessment: II - A patient with mild systemic disease. After reviewing the risks and benefits, the patient was deemed in satisfactory condition to undergo the procedure. The anesthesia plan was to use monitored anesthesia care (MAC). Immediately prior to administration of medications, the patient was re-assessed for adequacy to receive sedatives. The heart rate, respiratory rate, oxygen saturations, blood pressure, adequacy of pulmonary ventilation, and response to care were monitored throughout the procedure. The physical status of the patient was re-assessed after the procedure. After I obtained informed consent, the scope was passed under direct vision. Throughout the procedure, the patient's blood pressure, pulse, and oxygen saturations were monitored continuously. The colonoscope was introduced through the anus and advanced to the cecum, identified by appendiceal orifice and ileocecal valve. The colonoscopy was performed without difficulty. The patient tolerated the procedure well. The quality of the bowel preparation was adequate. Scope In: 11:30:27 AM Scope Withdrawal Time 0 hours 17 minutes 38 seconds Scope Out: 11:57:52 AM Total Procedure Duration Time 0 hours 27 minutes 25 seconds Findings: A few small-mouthed diverticula were found in the recto-sigmoid colon and sigmoid colon. There was no evidence of diverticular bleeding. A 30 mm polyp was found in the hepatic flexure. The polyp was sessile. The polyp was removed with a saline injection-lift technique using a hot snare. Resection and retrieval were complete. Verification of patient identification for the specimen was done. To prevent bleeding post-intervention, three hemostatic clips were successfully placed. There was no bleeding at the end of the procedure. Impression: - Mild diverticulosis in the recto-sigmoid colon and in the sigmoid colon. There was no evidence of diverticular bleeding. - One 30 mm polyp at the hepatic flexure, removed using injection-lift and a hot snare. Resected and retrieved. Clips were placed. Recommendation: - Repeat colonoscopy in 3 years for surveillance. - Continue present medications. Procedure Code(s): --- Professional --- 27491, Colonoscopy, flexible; with removal of tumor(s), polyp(s), or other lesion(s) by snare technique 11169, Colonoscopy, flexible; with directed submucosal injection(s), any substance CPT copyright 2017 [employer]. All rights reserved. The codes documented in this report are preliminary and upon cylinder sander operator review may be revised to meet current compliance requirements. Dexter Pina DO 07/14/2022 12:11:55 PM This report has been signed electronically. Number of Addenda: 0 Note Initiated On: 07/14/2022 11:23 AM
--- NOTE | 2022-07-14 12:13 | OP.CCLET_ITS ---
07/14/2022 Jimmie Rand MD [address] [place] [address] [place] [address] Re : Colonoscopy procedure for Shekhar Yo Dear Dr. Rand This procedure was performed on Thursday, July 14, 2022. My impressions and recommendations are as follows: Impressions : - Mild diverticulosis in the recto-sigmoid colon and in the sigmoid colon. There was no evidence of diverticular bleeding. - One 30 mm polyp at the hepatic flexure, removed using injection-lift and a hot snare. Resected and retrieved. Clips were placed. Recommendations : - Repeat colonoscopy in 3 years for surveillance. - Continue present medications. My findings are described in the full procedure note, which is enclosed. If I can be of further assistance, please feel free to contact me at . Sincerely, Dexter Friend, 07/14/2022 12:11:55 PM This report has been signed electronically.
--- NOTE | 2022-07-14 12:47 | PCM.PN.ID ---
Physical Exam Narrative pt gone to endoscopy ID ID: Route of nutrition/ use of supplements: [] Nutritional Intake: [] IV Site: [] Garcia Catheter: [] Assessment & Plan Assessment/Plan (1) Diarrhea: (2) ION (acute kidney injury): (3) Infected decubitus ulcer: PLAN: Recent wound cx with MRSA, proteus, enterococcus, and strep. On vanc/duc. UA with mild pyuria, ucx with PsA. Taken to OR 07/11/[address] Abbott for osteo. Will order 6 week course vanc/duc, stop date 08/22/22 with weekly labs, ID followup in 2-3 weeks. Will follow (4) Paraplegia:
[2022-07-14] MEDS: DAKIN'S SOL HALF STRENGTH (=0.25%) 1 APPLIC TOPICAL (13:23)
[2022-07-14] MEDS: Multivitamins,Therapeutic Tablet 1 TABLET PO (13:24)
[2022-07-14] MEDS: Nystatin Powder 15gm Bottle 1 APPLIC TOPICAL (13:24)
[2022-07-14] MEDS: amLODIPine 10 MG Tablet PO (13:25)
[2022-07-14 13:51] LABS: Bedside Glucose 120 mg/dL (74-106)
[2022-07-14] MEDS: Insulin Lispro 100 UNIT/ML INSULN.PEN SC (16:29)
--- NOTE | 2022-07-14 16:31 | CASEMGMT ---
Social Work Per physician, pt will need IV ATB through 08/22. SW spoke with pt regarding this need and pt is now agreeable to go to [facility]. Precert has been obtained. Physician updated and pt is ready for discharge today. SWCC and pt updated and agreeable to discharge to [facility] today. Green sheet on chart for completion of discharge when orders are placed. Disposition: [facility], skilled level of care under convalescent stay. JAVAD Najera
--- NOTE | 2022-07-14 16:58 | TREXTCAR_ITS ---
Diet Diet Order/Speech Therapy: 07/14/22 14:01 Diet: Cardiac: Calorie-Controlled Food consistency:: Regular Liquid Consistency:: Regular/Thin Dietary Modifications:: Cardiac / Heart Healthy Is pt able to select menu?: Yes Diet Comments: extra ounce protein tid w/ meals How many daily calories?: 2000 calorie Routine Orders/Code Status O2 Liters per Minute: CPAP when sleeping-patient may use his own device-with 4 L oxygen Routine Lab Work: CBC (in 2 days), BMP (in 2 days) and - (Fingerstick blood sugar AC nightly, sliding scale Humalog insulin per fingerstick blood sugar: 200-250: 5 units subcu, 251-300: 8 units subcu, 301-350: 12 units subcu) Code Status: Full Code Wound(s) BUTTOCK: Wound Type: Pressure Injury scrotum: Wound Type: scattered open areas back of thighs: Wound Type: scattered open areas sacrum: Wound Type: Pressure Injury Dressing Change: Dakins moistened gauze bilateral buttocks: Wound Type: shear/moisture Dressing Change: Triad cream/dry dressing Therapies Weight Bearing: Up to chair as tolerated Physical Therapy: Eval and Treat Occupational Therapy: Eval and Treat Problem/Diagnosis (1) Diarrhea: Status: Acute Code(s): R19.7 - Diarrhea, unspecified Comment: Etiology unclear (2) ION (acute kidney injury): Status: Acute Code(s): N17.9 - Acute kidney failure, unspecified (3) Infected decubitus ulcer: Status: Acute Code(s): L89.90 - Pressure ulcer of unspecified site, unspecified stage; L08.9 - Local infection of the skin and subcutaneous tissue, unspecified (4) Paraplegia: Status: Acute Code(s): G82.20 - Paraplegia, unspecified (5) Morbid (severe) obesity due to excess calories: Status: Acute Code(s): E66.01 - Morbid (severe) obesity due to excess calories (6) CPAP (continuous positive airway pressure) dependence: Status: Acute Code(s): Z99.89 - Dependence on other enabling machines and devices (7) Decubitus ulcer of sacral region, stage 4: Status: Chronic Code(s): L89.154 - Pressure ulcer of sacral region, stage 4 (8) Diabetes: Status: Chronic Code(s): E11.9 - Type 2 diabetes mellitus without complications Allergies/Procedures Done in Hospital Allergies metformin Adverse Reaction (Unknown, Verified 06/05/22 14:05) Diarrhea Procedures: Colonoscopy (With polypectomy and biopsies) and - (Debridement of sacral decubitus ulcer with exposed bone) Type of Care/Length of Stay Estimated LOS: Convalescent Care Less Than 30 days Type of Care Needed: Skilled Rehab Potential: Fair Prognosis: Fair Additional Orders/Day of Discharge H&P will serve as current which was dated: 07/09/22 Day of Discharge: 07/14/22 Dietary and Speech Recommendations Dietitian Recommendations/Changes: Will change diet to 2000 gregorio CHO control/Cardiac Will order Masood bid to help w/ skin healing Will order extra oz protein tid w/ meals to help w/ skin healing. Discharge Plan Admission Admit Date/Time: 07/09/22 13:06 Primary Reason for Your Visit: Infected stage IV pressure injury of coccyx Attending Provider: Kevan Villar Primary Care Provider: Jimmie Rand Consulting Providers: Coby Abbott ; Enedelia Raymond ; Reji Chou ; Samantha Bradford Discharge Orders/Prescriptions Prescriptions: New meropenem 1 gram Recon Soln 1 g IV Q8 Qty: 117 0RF Rx Instructions: stop date 08/22/22 dx: sacral osteo weekly bmp, cbc, esr, LFT, and vanc trough. Fax to [phone] routine picc care vancomycin 1,000 mg recon soln 2 g IV Q12H Qty: 76 0RF Rx Instructions: stop date 08/22/22 dx: sacral osteo weekly bmp, cbc, esr, LFT, and vanc trough. Fax to [phone] routine picc care amlodipine 10 mg Tablet 10 mg PO DAILY Qty: 0 0RF Masood (with collagen) 7-7-1.5 gram Powder In Packet 1 packet PO BIDCM Qty: 0 0RF nystatin [Nyamyc] 100,000 unit/gram Powder 1 applic topical BID Qty: 0 0RF HySept 0.25 % Solution 1 applic topical BID Qty: 0 0RF Protocol: *Topical Application Instructions APPLICATION INSTRUCTIONS: dakins moistened wet to dry dressing changes to buttocks wound BID dicyclomine 20 mg tablet 20 mg PO BID Qty: 1 0RF loperamide [Anti-Diarrheal (loperamide)] 2 mg tablet 4 mg PO Q6H PRN (Reason: loose stool) Qty: 1 0RF Rx Instructions: prn diarrhea Continued acetaminophen 325 mg capsule 650 mg PO Q4H PRN (Reason: pain) Rx Instructions: do not exceed 4gm in 24 hrs multivitamin Tablet 1 tab PO DAILY atorvastatin 20 mg tablet 40 mg PO QHS Latuda 60 mg Tablet 60 mg PO DINNER Rx Instructions: must administer with food (at least 350 calories) doxazosin 1 mg tablet 1 mg PO QHS Rx Instructions: TAKE 1 TABLET BY MOUTH AT BEDTIME FOR BENIGN PROSTATIC HYPERPLASIA Discontinued Trulicity 4.5 mg/0.5 mL pen injector 4.5 mg subcut FR docusate sodium 100 mg Capsule 100 mg PO DAILY No Action gabapentin 400 mg capsule 400 mg PO 4X/DAY Humulin R U-500 (Conc) Kwikpen 500 unit/mL (3 mL) insulin pen 55 unit subcut TIDCM Qty: 30 3RF Artificial Tears([id number]) 1-0.2-0.2 % Drops 1 drp EACH EYE Q1H PRN (Reason: DRY EYES) Qty: 0 0RF furosemide 40 mg tablet 40 mg PO DAILY Qty: 60 1RF lisinopril 40 mg tablet 20 mg PO DAILY Qty: 90 0RF Referrals / Follow Up: Jimmie Rand MD [Primary Care Provider] - Disposition Disposition (needs filled in before D/C Order can be placed): Residential Facility (1) Diabetes Qualifiers: Diabetes mellitus type: type 2 

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
--- NOTE | 2022-07-14 17:27 | CASEMGMT ---
EDGAR completed the 7000 by attaching the Transfer to Extended Care Orders and Discharge Orders. Submitted. Deepali MAZARIEGOS
[2022-07-14] MEDS: Juven (unflavored) Packet 1 PACKET PO (17:57)
[2022-07-14] MEDS: LURASIDONE HCL 20 MG TABLET 60 MG PO (17:57)
[2022-07-14 19:46] LABS: Bedside Glucose 166 mg/dL (74-106)
[2022-07-14] MEDS: Atorvastatin Calcium 40 MG Tablet PO (21:05)
[2022-07-14] MEDS: Doxazosin 1 MG Tablet PO (21:05)
[2022-07-14 21:14] LABS: Vancomycin, Trough Level 25.1 ug/mL (5.0-15.0)
--- NOTE | 2022-07-14 21:42 | CASEMGMT ---
SW called [facility] and was advised patient was supposed to return to [facility] at 9pm via [facility]. Waiting for [facility]. Deepali VASQUEZ
[2022-07-17 13:28] LABS: Pathologist Review Reviewed
== END 2022-07-14 22:56 | disposition skilled nursing facility (03) | DRG 380 ==
LOC: ED 12:38 → MS3 14:21
PROVIDERS: Anesthesiology; Internal Medicine; Internal Medicine Gastroenterology; Surgery; Admitting Provider Internal Medicine; Emergency Provider Student in an Organized Health Care Education/Training Program; PCP Internal Medicine; Visit Provider Internal Medicine
PROC: 0JB70ZZ Excision of Back Subcutaneous Tissue and Fascia, Open Approach (ICD-10-PCS; principal; 2022-07-11 11:20)
PROC: 0DJD8ZZ Inspection of Lower Intestinal Tract, Via Natural or Artificial Opening Endoscopic (ICD-10-PCS; CPT 45378; principal; 2022-07-14 10:55)
DX: L89.154 Pressure ulcer of sacral region, stage 4 (principal); K26.4 Chronic or unspecified duodenal ulcer with hemorrhage; N17.9 Acute kidney failure, unspecified; G82.20 Paraplegia, unspecified; Z68.43 Body mass index [BMI] 50.0-59.9, adult; D62 Acute posthemorrhagic anemia; E11.42 Type 2 diabetes mellitus with diabetic polyneuropathy; E66.01 Morbid (severe) obesity due to excess calories; Z79.4 Long term (current) use of insulin; E87.5 Hyperkalemia; I10 Essential (primary) hypertension; E78.5 Hyperlipidemia, unspecified; G47.33 Obstructive sleep apnea (adult) (pediatric); K29.50 Unspecified chronic gastritis without bleeding; K44.9 Diaphragmatic hernia without obstruction or gangrene; K57.30 Diverticulosis of large intestine without perforation or abscess without bleeding; D12.2 Benign neoplasm of ascending colon; K52.9 Noninfective gastroenteritis and colitis, unspecified; B95.2 Enterococcus as the cause of diseases classified elsewhere; B95.62 Methicillin resistant Staphylococcus aureus infection as the cause of diseases classified elsewhere; B96.5 Pseudomonas (aeruginosa) (mallei) (pseudomallei) as the cause of diseases classified elsewhere; K31.A0 Gastric intestinal metaplasia, unspecified; B96.4 Proteus (mirabilis) (morganii) as the cause of diseases classified elsewhere; N39.42 Incontinence 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; N39.0 Urinary tract infection, site not specified; R53.81 Other malaise; R74.01 Elevation of levels of liver transaminase levels; Z99.89 Dependence on other enabling machines and devices; Z79.899 Other long term (current) drug therapy; Z87.440 Personal history of urinary (tract) infections
CPT/HCPCS: 11043; 11046; 36415; 74018; 80048; 80053; 80202; 82274; 82962; 83036; 83630; 85014; 85018; 85025; 85610; 85730; 86850; 86900; 86901; 87070; 87075; 87077; 87086; 87088; 87176; 87177; 87186; 87205; 87209; 87493; 87506; 87811; 88305; 88342; 93005; 97162; 97166; 97802; 99213; 99285; J2185; J7030; J7040; J7050; J7120; A4216; G0463; J0295; J2405

== ENCOUNTER → 2022-07-17 | Outpatient (REF) | payer MEDICAID, SELFPAY ==
[2022-07-17 09:52] LABS: Erythrocyte Sedimentation Rate 69 mm/hr (0-20)
[2022-07-17 09:55] LABS: Hematocrit 27.4 % (40-54); Hemoglobin 8.3 g/dL (13.0-16.5); Mean Corp Hgb Conc 30.3 g/dL (32-36); Mean Corpuscular Hgb 26.6 pg (27.0-32.0); Mean Corpuscular Volume 87.8 fL (80-94); Mean Platelet Vol. 9.1 fl (6.2-12.0); Platelet Count 534 K/mm3 (150-450); RBC Distribution Width CV 16.7 % (11.6-14.6); RBC Distribution Width SD 52.4 fl (35.1-43.9); Red Blood Count 3.12 M/mm3 (4.6-6.2); White Blood Count 9.6 K/mm3 (4.4-11.0)
[2022-07-17 10:02] LABS: Vancomycin, Trough Level 10.6 ug/mL (5.0-15.0)
[2022-07-17 10:07] LABS: AST(SGOT) 19 U/L (15-37); Alanine Aminotransfer ALT/SGPT 54 U/L (16-61); Albumin, Serum 2.2 g/dL (3.2-5.0); Alkaline Phosphatase 128 U/L (45-117); Anion Gap 7 (5-15); BUN 12 mg/dL (7-18); BUN/Creat Ratio 15.4 RATIO (10-20); Bilirubin, Direct 0.07 mg/dL (0.00-0.30); Calcium,Total 9.4 mg/dL (8.5-10.1); Chloride 105 mmol/L (98-107); Creatinine, Serum 0.78 mg/dL (0.70-1.30); EST Glomerular Filtration Rate 111 mL/min (>60); Est Glom Filt Rate - Afr Amer 134 mL/min (>60); Globulin 4.4 g/dL (2.2-4.2); Glucose 124 mg/dL (74-106); Potassium 3.7 mmol/L (3.5-5.1); Protein, Total 6.6 g/dL (6.4-8.2); Sodium Level 139 mmol/L (136-145)
== END | disposition home or self-care (01) ==
LOC: OLS.SW 05:00
PROVIDERS: PCP Internal Medicine; Visit Provider Family Medicine
DX: E11.9 Type 2 diabetes mellitus without complications (principal); M46.20 Osteomyelitis of vertebra, site unspecified
CPT/HCPCS: 36415; 80048; 80076; 80202; 85027; 85652

== ENCOUNTER → 2022-07-25 | Outpatient (REF) | payer MEDICAID, SELFPAY ==
[2022-07-25 09:26] LABS: Hematocrit 27.1 % (40-54); Mean Corp Hgb Conc 29.5 g/dL (32-36); Mean Corpuscular Hgb 26.4 pg (27.0-32.0); Mean Corpuscular Volume 89.4 fL (80-94); Mean Platelet Vol. 9.3 fl (6.2-12.0); Platelet Count 378 K/mm3 (150-450); RBC Distribution Width CV 17.1 % (11.6-14.6); RBC Distribution Width SD 56.4 fl (35.1-43.9); Red Blood Count 3.03 M/mm3 (4.6-6.2); White Blood Count 8.7 K/mm3 (4.4-11.0)
[2022-07-25 10:08] LABS: AST(SGOT) 26 U/L (15-37); Alanine Aminotransfer ALT/SGPT 52 U/L (16-61); Albumin, Serum 2.3 g/dL (3.2-5.0); Alkaline Phosphatase 125 U/L (45-117); Anion Gap 8 (5-15); BUN 24 mg/dL (7-18); BUN/Creat Ratio 28.1 RATIO (10-20); Bilirubin, Direct 0.08 mg/dL (0.00-0.30); Calcium,Total 9.7 mg/dL (8.5-10.1); Chloride 107 mmol/L (98-107); Creatinine, Serum 0.85 mg/dL (0.70-1.30); EST Glomerular Filtration Rate 99 mL/min (>60); Est Glom Filt Rate - Afr Amer 120 mL/min (>60); Globulin 4.5 g/dL (2.2-4.2); Glucose 50 mg/dL (74-106); Potassium 4.4 mmol/L (3.5-5.1); Protein, Total 6.8 g/dL (6.4-8.2); Sodium Level 138 mmol/L (136-145)
[2022-07-25 10:10] LABS: Erythrocyte Sedimentation Rate 113 mm/hr (0-20)
[2022-07-25 11:04] LABS: Vancomycin, Trough Level 21.9 ug/mL (5.0-15.0)
== END | disposition home or self-care (01) ==
LOC: OLS.SW 05:00
PROVIDERS: PCP Internal Medicine; Visit Provider Family Medicine
DX: E11.9 Type 2 diabetes mellitus without complications (principal); I10 Essential (primary) hypertension; Z79.899 Other long term (current) drug therapy
CPT/HCPCS: 36415; 80048; 80076; 80202; 85027; 85652

== ENCOUNTER → 2022-07-31 | Outpatient (REF) | payer MEDICAID, SELFPAY ==
[2022-07-31 08:58] LABS: Erythrocyte Sedimentation Rate 46 mm/hr (0-20)
[2022-07-31 09:02] LABS: Hematocrit 24.1 % (40-54); Hemoglobin 7.3 g/dL (13.0-16.5); Mean Corp Hgb Conc 30.3 g/dL (32-36); Mean Corpuscular Hgb 26.8 pg (27.0-32.0); Mean Corpuscular Volume 88.6 fL (80-94); Mean Platelet Vol. 9.6 fl (6.2-12.0); Platelet Count 394 K/mm3 (150-450); RBC Distribution Width CV 17.6 % (11.6-14.6); RBC Distribution Width SD 56.7 fl (35.1-43.9); Red Blood Count 2.72 M/mm3 (4.6-6.2); White Blood Count 8.1 K/mm3 (4.4-11.0)
[2022-07-31 09:04] LABS: Vancomycin, Trough Level 30.9 ug/mL (5.0-15.0)
[2022-07-31 09:15] LABS: AST(SGOT) 20 U/L (15-37); Alanine Aminotransfer ALT/SGPT 46 U/L (16-61); Albumin, Serum 2.3 g/dL (3.2-5.0); Alkaline Phosphatase 109 U/L (45-117); Anion Gap 8 (5-15); BUN 34 mg/dL (7-18); BUN/Creat Ratio 35.2 RATIO (10-20); Bilirubin, Direct 0.05 mg/dL (0.00-0.30); Calcium,Total 9.5 mg/dL (8.5-10.1); Chloride 107 mmol/L (98-107); Creatinine, Serum 0.97 mg/dL (0.70-1.30); EST Glomerular Filtration Rate 86 mL/min (>60); Est Glom Filt Rate - Afr Amer 104 mL/min (>60); Globulin 4.2 g/dL (2.2-4.2); Glucose 125 mg/dL (74-106); Potassium 4.9 mmol/L (3.5-5.1); Protein, Total 6.5 g/dL (6.4-8.2); Sodium Level 138 mmol/L (136-145)
== END | disposition home or self-care (01) ==
LOC: OLS.SW 04:00
PROVIDERS: PCP Internal Medicine; Referring Provider Family Medicine; Visit Provider Family Medicine
DX: Z79.899 Other long term (current) drug therapy (principal)
CPT/HCPCS: 36415; 80048; 80076; 80202; 85027; 85652

== ENCOUNTER → 2022-08-07 | Outpatient (REF) | payer MEDICAID, SELFPAY ==
[2022-08-07 08:26] LABS: Hematocrit 21.4 % (40-54); Hemoglobin 6.5 g/dL (13.0-16.5); Mean Corp Hgb Conc 30.4 g/dL (32-36); Mean Corpuscular Hgb 26.1 pg (27.0-32.0); Mean Corpuscular Volume 85.9 fL (80-94); Mean Platelet Vol. 9.8 fl (6.2-12.0); Platelet Count 359 K/mm3 (150-450); RBC Distribution Width CV 17.4 % (11.6-14.6); Red Blood Count 2.49 M/mm3 (4.6-6.2)
[2022-08-07 08:45] LABS: Erythrocyte Sedimentation Rate 126 mm/hr (0-20)
[2022-08-07 09:12] LABS: Vancomycin, Trough Level 39.8 ug/mL (5.0-15.0)
[2022-08-07 09:21] LABS: AST(SGOT) 31 U/L (15-37); Alanine Aminotransfer ALT/SGPT 50 U/L (16-61); Albumin, Serum 2.1 g/dL (3.2-5.0); Alkaline Phosphatase 112 U/L (45-117); Anion Gap 9 (5-15); BUN 58 mg/dL (7-18); BUN/Creat Ratio 33.5 RATIO (10-20); Bilirubin, Direct 0.07 mg/dL (0.00-0.30); Calcium,Total 9.2 mg/dL (8.5-10.1); Chloride 104 mmol/L (98-107); Creatinine, Serum 1.73 mg/dL (0.70-1.30); EST Glomerular Filtration Rate 44 mL/min (>60); Est Glom Filt Rate - Afr Amer 53 mL/min (>60); Globulin 4.1 g/dL (2.2-4.2); Glucose 146 mg/dL (74-106); Potassium 5.1 mmol/L (3.5-5.1); Protein, Total 6.2 g/dL (6.4-8.2); Sodium Level 133 mmol/L (136-145)
== END | disposition home or self-care (01) ==
LOC: OLS.SW 04:00
PROVIDERS: PCP Internal Medicine; Referring Provider Family Medicine; Visit Provider Family Medicine
DX: M86.9 Osteomyelitis, unspecified (principal)
CPT/HCPCS: 36415; 80048; 80076; 80202; 85027; 85652

== ENCOUNTER → 2022-08-08 | Outpatient (REF) | payer MEDICAID, SELFPAY ==
[2022-08-08 16:26] LABS: Hematocrit 25.4 % (40-54); Hemoglobin 7.9 g/dL (13.0-16.5); Mean Corp Hgb Conc 31.1 g/dL (32-36); Mean Corpuscular Hgb 26.6 pg (27.0-32.0); Mean Corpuscular Volume 85.5 fL (80-94); Mean Platelet Vol. 9.4 fl (6.2-12.0); Platelet Count 438 K/mm3 (150-450); RBC Distribution Width CV 17.2 % (11.6-14.6); RBC Distribution Width SD 54.8 fl (35.1-43.9); Red Blood Count 2.97 M/mm3 (4.6-6.2); White Blood Count 9.5 K/mm3 (4.4-11.0)
== END | disposition home or self-care (01) ==
LOC: OLS.SW 15:45
PROVIDERS: PCP Internal Medicine; Visit Provider Family Medicine
DX: D64.9 Anemia, unspecified (principal)
CPT/HCPCS: 36415; 85027

== ENCOUNTER → 2022-08-09 | Outpatient (REF) | payer MEDICAID, SELFPAY ==
[2022-08-09 09:34] LABS: Anion Gap 8 (5-15); BUN 69 mg/dL (7-18); Calcium,Total 9.4 mg/dL (8.5-10.1); Chloride 105 mmol/L (98-107); Creatinine, Serum 1.77 mg/dL (0.70-1.30); EST Glomerular Filtration Rate 43 mL/min (>60); Est Glom Filt Rate - Afr Amer 52 mL/min (>60); Glucose 124 mg/dL (74-106); Potassium 5.2 mmol/L (3.5-5.1); Sodium Level 134 mmol/L (136-145)
[2022-08-09 09:39] LABS: Vancomycin, Trough Level 20.4 ug/mL (5.0-15.0)
== END | disposition home or self-care (01) ==
LOC: OLS.SW 05:00
PROVIDERS: PCP Internal Medicine; Visit Provider Internal Medicine Infectious Disease
DX: G82.20 Paraplegia, unspecified (principal); N31.9 Neuromuscular dysfunction of bladder, unspecified; Z79.899 Other long term (current) drug therapy
CPT/HCPCS: 36415; 80048; 80202

== ENCOUNTER → 2022-08-10 | Outpatient (REF) | payer MEDICAID, SELFPAY ==
[2022-08-10 10:06] LABS: Anion Gap 7 (5-15); BUN 66 mg/dL (7-18); BUN/Creat Ratio 36.7 RATIO (10-20); Calcium,Total 9.4 mg/dL (8.5-10.1); Chloride 103 mmol/L (98-107); EST Glomerular Filtration Rate 42 mL/min (>60); Est Glom Filt Rate - Afr Amer 51 mL/min (>60); Glucose 181 mg/dL (74-106); Potassium 5.5 mmol/L (3.5-5.1); Sodium Level 132 mmol/L (136-145)
== END | disposition home or self-care (01) ==
LOC: OLS.SW 05:00
PROVIDERS: PCP Internal Medicine; Visit Provider Internal Medicine Infectious Disease
DX: Z79.899 Other long term (current) drug therapy (principal)
CPT/HCPCS: 36415; 80048

== ENCOUNTER → 2022-08-14 | Outpatient (REF) | payer MEDICAID, SELFPAY ==
[2022-08-14 07:55] LABS: Erythrocyte Sedimentation Rate 45 mm/hr (0-20)
[2022-08-14 07:57] LABS: Hematocrit 20.4 % (40-54); Hemoglobin 6.1 g/dL (13.0-16.5); Mean Corp Hgb Conc 29.9 g/dL (32-36); Mean Corpuscular Hgb 25.8 pg (27.0-32.0); Mean Corpuscular Volume 86.4 fL (80-94); Mean Platelet Vol. 9.8 fl (6.2-12.0); Platelet Count 426 K/mm3 (150-450); RBC Distribution Width CV 17.2 % (11.6-14.6); RBC Distribution Width SD 55.1 fl (35.1-43.9); Red Blood Count 2.36 M/mm3 (4.6-6.2); White Blood Count 6.1 K/mm3 (4.4-11.0)
[2022-08-14 08:08] LABS: AST(SGOT) 29 U/L (15-37); Alanine Aminotransfer ALT/SGPT 67 U/L (16-61); Alkaline Phosphatase 156 U/L (45-117); Anion Gap 6 (5-15); BUN 43 mg/dL (7-18); BUN/Creat Ratio 40.2 RATIO (10-20); Bilirubin, Direct < 0.05 mg/dL (0.00-0.30); Calcium,Total 9.9 mg/dL (8.5-10.1); Chloride 108 mmol/L (98-107); Creatinine, Serum 1.07 mg/dL (0.70-1.30); EST Glomerular Filtration Rate 77 mL/min (>60); Est Glom Filt Rate - Afr Amer 93 mL/min (>60); Globulin 4.3 g/dL (2.2-4.2); Glucose 165 mg/dL (74-106); Potassium 4.8 mmol/L (3.5-5.1); Protein, Total 6.3 g/dL (6.4-8.2); Sodium Level 137 mmol/L (136-145)
== END | disposition home or self-care (01) ==
LOC: OLS.SW 05:30
PROVIDERS: PCP Internal Medicine; Visit Provider Family Medicine
DX: Z79.899 Other long term (current) drug therapy (principal)
CPT/HCPCS: 36415; 80048; 80076; 80202; 85027; 85652

== ENCOUNTER 2022-08-15 16:13 | Emergency (ER) | payer MEDICAID, SELFPAY ==
[2022-08-15] VITALS (7 sets, daily range): BP systolic 106–119; BP diastolic 42–73; PULSE 74–87; RESP 14–21; TEMP 36.8–37; O2SAT 93–99; BMI 55.7
--- NOTE | 2022-08-15 16:58 | ED.RN ---
repositioned pt, changed abd on dressing due stool and abd saturated with drainage. stack lock placed on left inner thigh for mckinney. mckinney emptied for 800cc clear yellow urine. pt tolerated well.
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
[2022-08-15 18:50] LABS: Anion Gap 7 (5-15); BUN 35 mg/dL (7-18); Calcium,Total 10.4 mg/dL (8.5-10.1); Chloride 108 mmol/L (98-107); Creatinine, Serum 1.06 mg/dL (0.70-1.30); EST Glomerular Filtration Rate 77 mL/min (>60); Est Glom Filt Rate - Afr Amer 94 mL/min (>60); Estimated Creatinine Clearance 87.44 ml/min; Glucose 103 mg/dL (74-106); Potassium 4.9 mmol/L (3.5-5.1); Sodium Level 139 mmol/L (136-145)
[2022-08-15] MEDS: Acetaminophen 500 MG Tablet 1000 MG PO (19:57)
[2022-08-16] VITALS: BP 109/72; PULSE 80; RESP 14
--- NOTE | 2022-08-16 00:28 | NURSING ---
CALLED PHYSICIANS FOR AN UPDATED ETA AND WAS GIVEN AN ETA OF 90 MINUTES TO 2 HOURS-- [phone]
== END 2022-08-16 03:40 | disposition skilled nursing facility (03) ==
PROVIDERS: Emergency Provider Emergency Medicine; PCP Internal Medicine; Visit Provider Emergency Medicine
DX: D64.9 Anemia, unspecified (principal); G82.20 Paraplegia, unspecified; E11.42 Type 2 diabetes mellitus with diabetic polyneuropathy; E66.01 Morbid (severe) obesity due to excess calories; Z79.4 Long term (current) use of insulin; L89.159 Pressure ulcer of sacral region, unspecified stage; I10 Essential (primary) hypertension; E78.5 Hyperlipidemia, unspecified; K29.50 Unspecified chronic gastritis without bleeding; G47.33 Obstructive sleep apnea (adult) (pediatric); Z86.718 Personal history of other venous thrombosis and embolism; Z99.81 Dependence on supplemental oxygen; Z79.899 Other long term (current) drug therapy
CPT/HCPCS: 36415; 80048; 86850; 86900; 86901; 86920; 86922; 99284; J7040; P9016; A4216

== ENCOUNTER → 2022-08-15 | Outpatient (REF) | payer MEDICAID, SELFPAY ==
[2022-08-15 07:36] LABS: Hematocrit 21.3 % (40-54); Hemoglobin 6.4 g/dL (13.0-16.5); Mean Corpuscular Hgb 25.8 pg (27.0-32.0); Mean Corpuscular Volume 85.9 fL (80-94); Mean Platelet Vol. 9.3 fl (6.2-12.0); POSITIVE COUNT YES; POSITIVE MORPHOLOGY YES; Platelet Count 463 K/mm3 (150-450); RBC Distribution Width CV 17.4 % (11.6-14.6); RBC Distribution Width SD 54.6 fl (35.1-43.9); Red Blood Count 2.48 M/mm3 (4.6-6.2)
[2022-08-15 07:39] LABS: Differential Indicated MANUAL DIFF
[2022-08-15 08:23] LABS: Eosinophil 7 % (0-5); Lymphocyte 16 % (19-41); Metamyelocyte 2 % (0-1); Monocyte 7 % (0-10); Myelocyte 1 % (0-0); Neutrophil-Band 1 % (0-5); Neutrophil-Segmented 66 % (47-70); Total Cells Counted 100 (MANUAL DIFF)
[2022-08-15 08:24] LABS: Platelet Estimate ADEQUATE (ADEQ)
[2022-08-15 08:25] LABS: Absolute Lymphocyte Count 0.64 X10^3/uL (0.83-4.51); Absolute Neutrophil Count 4.7 X10^3/uL (2.0-7.7); Hypochromasia 1+; Lymphocyte # 0.64 X10^3/ul (0.83-4.51); Neutrophil # 4.69 X10^3/uL (2.7-7.7); Red Cell Morphology N CYTIC NORMAL (NORM C&C)
[2022-08-15 08:40] LABS: Ferritin 451 ng/mL (26-388); Iron 48 ug/dL (65-175); Iron Binding Capacity,Total 183 ug/dL (250-450); PERCENT IRON SATURATION 26.2 % (15.0-55.0)
[2022-08-15 13:18] LABS: Pathologist Review Reviewed
== END | disposition home or self-care (01) ==
LOC: OLS.SW 05:00
PROVIDERS: PCP Internal Medicine; Referring Provider Family Medicine; Visit Provider Family Medicine
DX: D64.9 Anemia, unspecified (principal)
CPT/HCPCS: 36415; 82728; 83540; 83550; 85025

== ENCOUNTER → 2022-08-21 | Outpatient (REF) | payer MEDICAID, SELFPAY ==
[2022-08-21 08:59] LABS: Hematocrit 24.7 % (40-54); Hemoglobin 7.6 g/dL (13.0-16.5); Mean Corp Hgb Conc 30.8 g/dL (32-36); Mean Corpuscular Hgb 26.5 pg (27.0-32.0); Mean Corpuscular Volume 86.1 fL (80-94); Mean Platelet Vol. 9.1 fl (6.2-12.0); Platelet Count 434 K/mm3 (150-450); RBC Distribution Width CV 17.3 % (11.6-14.6); RBC Distribution Width SD 54.5 fl (35.1-43.9); Red Blood Count 2.87 M/mm3 (4.6-6.2); White Blood Count 10.3 K/mm3 (4.4-11.0)
[2022-08-21 09:09] LABS: AST(SGOT) 19 U/L (15-37); Alanine Aminotransfer ALT/SGPT 44 U/L (16-61); Albumin, Serum 2.5 g/dL (3.2-5.0); Alkaline Phosphatase 121 U/L (45-117); Anion Gap 7 (5-15); BUN 28 mg/dL (7-18); BUN/Creat Ratio 28.8 RATIO (10-20); Bilirubin, Direct 0.06 mg/dL (0.00-0.30); Calcium,Total 9.7 mg/dL (8.5-10.1); Chloride 102 mmol/L (98-107); Creatinine, Serum 0.97 mg/dL (0.70-1.30); EST Glomerular Filtration Rate 86 mL/min (>60); Est Glom Filt Rate - Afr Amer 104 mL/min (>60); Globulin 4.4 g/dL (2.2-4.2); Glucose 112 mg/dL (74-106); Potassium 4.7 mmol/L (3.5-5.1); Protein, Total 6.9 g/dL (6.4-8.2); Sodium Level 136 mmol/L (136-145)
[2022-08-21 09:27] LABS: Erythrocyte Sedimentation Rate 46 mm/hr (0-20)
== END | disposition home or self-care (01) ==
LOC: OLS.SW 04:00
PROVIDERS: PCP Internal Medicine; Referring Provider Family Medicine; Visit Provider Family Medicine
DX: E11.9 Type 2 diabetes mellitus without complications (principal); I10 Essential (primary) hypertension; Z79.899 Other long term (current) drug therapy
CPT/HCPCS: 36415; 80048; 80076; 80202; 85027; 85652

== ENCOUNTER → 2022-08-28 | Outpatient (REF) | payer MEDICAID, SELFPAY ==
[2022-08-28 08:13] LABS: Vancomycin, Trough Level 0.9 ug/mL (5.0-15.0)
[2022-08-28 08:17] LABS: Erythrocyte Sedimentation Rate 84 mm/hr (0-20)
[2022-08-28 08:18] LABS: Hematocrit 22.2 % (40-54); Hemoglobin 6.7 g/dL (13.0-16.5); Mean Corp Hgb Conc 30.2 g/dL (32-36); Mean Corpuscular Hgb 26.5 pg (27.0-32.0); Mean Corpuscular Volume 87.7 fL (80-94); Mean Platelet Vol. 9.7 fl (6.2-12.0); Platelet Count 372 K/mm3 (150-450); RBC Distribution Width CV 17.8 % (11.6-14.6); RBC Distribution Width SD 56.8 fl (35.1-43.9); Red Blood Count 2.53 M/mm3 (4.6-6.2); White Blood Count 6.9 K/mm3 (4.4-11.0)
[2022-08-28 08:24] LABS: AST(SGOT) 60 U/L (15-37); Alanine Aminotransfer ALT/SGPT 116 U/L (16-61); Albumin, Serum 2.2 g/dL (3.2-5.0); Alkaline Phosphatase 183 U/L (45-117); Anion Gap 7 (5-15); BUN 41 mg/dL (7-18); BUN/Creat Ratio 37.3 RATIO (10-20); Bilirubin, Direct 0.11 mg/dL (0.00-0.30); Chloride 104 mmol/L (98-107); EST Glomerular Filtration Rate 74 mL/min (>60); Est Glom Filt Rate - Afr Amer 90 mL/min (>60); Globulin 4.5 g/dL (2.2-4.2); Glucose 152 mg/dL (74-106); Potassium 5.2 mmol/L (3.5-5.1); Protein, Total 6.7 g/dL (6.4-8.2); Sodium Level 136 mmol/L (136-145)
== END | disposition home or self-care (01) ==
LOC: OLS.SW 05:00
PROVIDERS: PCP Internal Medicine; Visit Provider Family Medicine
DX: Z79.899 Other long term (current) drug therapy (principal)
CPT/HCPCS: 36415; 80048; 80076; 80202; 85027; 85652

== ENCOUNTER → 2022-08-30 | Outpatient (CLI) | payer MEDICAID, SELFPAY ==
[2022-08-30 09:25] VITALS: BP 119/68; PULSE 88; RESP 16; TEMP 36.4; O2SAT 99; BMI 51.5
[2022-08-30 09:56] LABS: Erythrocyte Sedimentation Rate 38 mm/hr (0-20)
[2022-08-30 09:58] LABS: Absolute Lymphocyte Count 1.22 X10^3/uL (0.83-4.51); Absolute Neutrophil Count 6.2 X10^3/uL (2.0-7.7); Basophil# 0.06 X10^3/uL; Basophil% 0.7 % (0-1); Eosinophil# 0.38 X10^3/uL; Eosinophils% 4.4 % (0-5); Hematocrit 23.4 % (40-54); Lymphocyte # 1.22 X10^3/ul (0.83-4.51); Lymphocyte % 14.1 % (19-41); Mean Corp Hgb Conc 29.9 g/dL (32-36); Mean Corpuscular Hgb 25.5 pg (27.0-32.0); Mean Corpuscular Volume 85.4 fL (80-94); Mean Platelet Vol. 9.2 fl (6.2-12.0); Monocyte# 0.58 X10^3/uL; Monocyte% 6.7 % (0-10); NRBC Flagged by Analyzer 0 % (0-5); Neutrophil % 71.6 % (47-70); Platelet Count 406 K/mm3 (150-450); RBC Distribution Width CV 17.8 % (11.6-14.6); RBC Distribution Width SD 55.1 fl (35.1-43.9); Red Blood Count 2.74 M/mm3 (4.6-6.2); White Blood Count 8.7 K/mm3 (4.4-11.0)
[2022-08-30 10:06] VITALS: BP 115/57; PULSE 83; RESP 18; TEMP 36.7; O2SAT 95
[2022-08-30 10:08] LABS: ALB/GLOB Ratio 0.6 RATIO (0.9-2.4); AST(SGOT) 18 U/L (15-37); Alanine Aminotransfer ALT/SGPT 70 U/L (16-61); Albumin, Serum 2.5 g/dL (3.2-5.0); Alkaline Phosphatase 172 U/L (45-117); Anion Gap 6 (5-15); BUN 35 mg/dL (7-18); BUN/Creat Ratio 28.5 RATIO (10-20); Calcium,Total 9.9 mg/dL (8.5-10.1); Chloride 102 mmol/L (98-107); Creatinine, Serum 1.23 mg/dL (0.70-1.30); EST Glomerular Filtration Rate 65 mL/min (>60); Est Glom Filt Rate - Afr Amer 79 mL/min (>60); Estimated Creatinine Clearance 75.36 ml/min; Globulin 4.5 g/dL (2.2-4.2); Glucose 207 mg/dL (74-106); LDH 145 U/L (87-241); Sodium Level 135 mmol/L (136-145)
[2022-08-30 10:11] VITALS: BP 127/55; PULSE 90; RESP 16; TEMP 36.6; O2SAT 98
[2022-08-30 12:10] VITALS: BP 113/68; PULSE 87; RESP 16; TEMP 36.6; O2SAT 95
[2022-08-30] MEDS: Furosemide 20 MG/2 ML VIAL IV (12:20)
[2022-08-30 12:55] VITALS: BP 118/62; PULSE 90; RESP 16; TEMP 37.2; O2SAT 97
[2022-08-30 12:58] VITALS: BP 140/53; PULSE 91; RESP 18; TEMP 36.8; O2SAT 98
[2022-08-31 15:08] LABS: Endomysial Antibody IgA Negative (Negative)
[2022-08-31 15:35] LABS: Immunoglobulin A 220 mg/dL (90-386); t-Transglutaminase IgA <2 U/mL (0-3)
[2022-08-31 16:09] LABS: Anti-Centromere B Ab 0.2 AI (0.0-0.9); Anti-Chromatin <0.2 AI (0.0-0.9); Anti-Jo <0.2 AI (0.0-0.9); Anti-Scleroderma-70 AB <0.2 AI (0.0-0.9); RNP Ab 0.2 AI (0.0-0.9); SJOGREN'S Anti-SS-A test < 0.2 AI (0.0-0.9); SJOGREN'S Anti-SS-B test < 0.2 AI (0.0-0.9); Smith Ab <0.2 AI (0.0-0.9)
[2022-08-31 19:59] LABS: Anti-dsDNA Ab <1 IU/mL (0-9)
[2022-09-01 21:07] LABS: Albumin 2.7 g/dL (2.9-4.4); Alpha-1-Globulins 0.4 g/dL (0.0-0.4); Alpha-2-Globulins 1.2 g/dL (0.4-1.0); Cytoplasmic Ab (C-ANCA) <1:20 titer (Neg:<1:20); Gamma Globulin 0.9 g/dL (0.4-1.8); Immunoglobulin A 206 mg/dL (90-386); Immunoglobulin E 11 IU/mL (6-495); Immunoglobulin G 1108 mg/dL (603-1613); Immunoglobulin M 43 mg/dL (20-172); PROEL- TOTAL PROTEIN 6.2 g/dL (6.0-8.5)
[2022-09-01 21:37] LABS: Perinuclear Ab (P-ANCA) <1:20 titer (Neg:<1:20)
== END | disposition home or self-care (01) ==
PROVIDERS: Internal Medicine Gastroenterology; PCP Internal Medicine; Referring Provider Family Medicine; Visit Provider Family Medicine
DX: R19.7 Diarrhea, unspecified (principal); K58.9 Irritable bowel syndrome, unspecified
CPT/HCPCS: 36415; 36430; 80053; 82784; 82785; 83516; 83615; 84165; 85025; 85652; 86140; 86225; 86235; 86255; 86256; 86334; 86850; 86900; 86901; 86920; 86922; J7040; P9016; A4216; J1940

== ENCOUNTER → 2022-09-04 | Outpatient (REF) | payer MEDICAID, SELFPAY ==
[2022-09-04 08:47] LABS: Erythrocyte Sedimentation Rate 36 mm/hr (0-20)
[2022-09-04 08:59] LABS: AST(SGOT) 25 U/L (15-37); Alanine Aminotransfer ALT/SGPT 47 U/L (16-61); Alkaline Phosphatase 176 U/L (45-117); Anion Gap 8 (5-15); BUN 68 mg/dL (7-18); BUN/Creat Ratio 26.2 RATIO (10-20); Bilirubin, Direct 0.15 mg/dL (0.00-0.30); Calcium,Total 9.1 mg/dL (8.5-10.1); Chloride 102 mmol/L (98-107); EST Glomerular Filtration Rate 27 mL/min (>60); Est Glom Filt Rate - Afr Amer 33 mL/min (>60); Globulin 4.5 g/dL (2.2-4.2); Glucose 161 mg/dL (74-106); Potassium 4.8 mmol/L (3.5-5.1); Protein, Total 6.5 g/dL (6.4-8.2); Sodium Level 132 mmol/L (136-145)
[2022-09-04 09:46] LABS: Hematocrit 22.5 % (40-54); Hemoglobin 6.9 g/dL (13.0-16.5); Mean Corp Hgb Conc 30.7 g/dL (32-36); Mean Corpuscular Hgb 26.6 pg (27.0-32.0); Mean Corpuscular Volume 86.9 fL (80-94); Mean Platelet Vol. 9.8 fl (6.2-12.0); Platelet Count 383 K/mm3 (150-450); RBC Distribution Width CV 17.9 % (11.6-14.6); RBC Distribution Width SD 56.3 fl (35.1-43.9); Red Blood Count 2.59 M/mm3 (4.6-6.2); White Blood Count 10.6 K/mm3 (4.4-11.0)
== END | disposition home or self-care (01) ==
LOC: OLS.SW 05:00
PROVIDERS: PCP Internal Medicine; Visit Provider Family Medicine
DX: E11.9 Type 2 diabetes mellitus without complications (principal); I10 Essential (primary) hypertension
CPT/HCPCS: 36415; 80048; 80076; 85027; 85652

== ENCOUNTER → 2022-09-07 | Outpatient (REF) | payer MEDICAID, SELFPAY ==
[2022-09-13 09:59] LABS: Calprotectin, Stool 434 ug/g (0-120)
== END | disposition home or self-care (01) ==
LOC: OLS.SW 14:35
PROVIDERS: PCP Internal Medicine; Visit Provider Family Medicine
DX: R19.7 Diarrhea, unspecified (principal)
CPT/HCPCS: 83630; 83993; 87493

== ENCOUNTER → 2022-09-11 | Outpatient (REF) | payer MEDICAID, SELFPAY ==
[2022-09-11 09:02] LABS: Erythrocyte Sedimentation Rate 47 mm/hr (0-20)
[2022-09-11 09:04] LABS: Hematocrit 23.8 % (40-54); Hemoglobin 7.3 g/dL (13.0-16.5); Mean Corp Hgb Conc 30.7 g/dL (32-36); Mean Corpuscular Hgb 27.1 pg (27.0-32.0); Mean Corpuscular Volume 88.5 fL (80-94); Mean Platelet Vol. 9.2 fl (6.2-12.0); Platelet Count 443 K/mm3 (150-450); RBC Distribution Width CV 17.8 % (11.6-14.6); RBC Distribution Width SD 57.8 fl (35.1-43.9); Red Blood Count 2.69 M/mm3 (4.6-6.2); White Blood Count 8.4 K/mm3 (4.4-11.0)
[2022-09-11 09:22] LABS: AST(SGOT) 23 U/L (15-37); Alanine Aminotransfer ALT/SGPT 47 U/L (16-61); Alkaline Phosphatase 143 U/L (45-117); Anion Gap 6 (5-15); BUN 30 mg/dL (7-18); BUN/Creat Ratio 29.1 RATIO (10-20); Bilirubin, Direct 0.09 mg/dL (0.00-0.30); Calcium,Total 9.3 mg/dL (8.5-10.1); Chloride 108 mmol/L (98-107); Creatinine, Serum 1.03 mg/dL (0.70-1.30); EST Glomerular Filtration Rate 80 mL/min (>60); Est Glom Filt Rate - Afr Amer 97 mL/min (>60); Globulin 4.8 g/dL (2.2-4.2); Glucose 136 mg/dL (74-106); Protein, Total 6.8 g/dL (6.4-8.2); Sodium Level 136 mmol/L (136-145)
== END | disposition home or self-care (01) ==
LOC: OLS.SW 05:00
PROVIDERS: PCP Internal Medicine; Visit Provider Family Medicine
DX: Z79.899 Other long term (current) drug therapy (principal)
CPT/HCPCS: 36415; 80048; 80076; 85027; 85652

== ENCOUNTER → 2022-09-19 | Outpatient (REF) | payer MEDICAID, SELFPAY ==
[2022-09-19 08:24] LABS: Hematocrit 20.5 % (40-54); Hemoglobin 6.1 g/dL (13.0-16.5); Mean Corp Hgb Conc 29.8 g/dL (32-36); Mean Corpuscular Hgb 26.6 pg (27.0-32.0); Mean Corpuscular Volume 89.5 fL (80-94); Mean Platelet Vol. 9.5 fl (6.2-12.0); Platelet Count 340 K/mm3 (150-450); RBC Distribution Width CV 17.7 % (11.6-14.6); RBC Distribution Width SD 58.1 fl (35.1-43.9); Red Blood Count 2.29 M/mm3 (4.6-6.2); White Blood Count 10.5 K/mm3 (4.4-11.0)
[2022-09-19 08:31] LABS: Erythrocyte Sedimentation Rate 24 mm/hr (0-20)
[2022-09-19 08:34] LABS: AST(SGOT) 57 U/L (15-37); Alanine Aminotransfer ALT/SGPT 103 U/L (16-61); Albumin, Serum 1.9 g/dL (3.2-5.0); Alkaline Phosphatase 222 U/L (45-117); Anion Gap 7 (5-15); BUN 41 mg/dL (7-18); BUN/Creat Ratio 34.2 RATIO (10-20); Bilirubin, Direct 0.19 mg/dL (0.00-0.30); Calcium,Total 9.3 mg/dL (8.5-10.1); Chloride 106 mmol/L (98-107); EST Glomerular Filtration Rate 67 mL/min (>60); Est Glom Filt Rate - Afr Amer 81 mL/min (>60); Globulin 4.6 g/dL (2.2-4.2); Glucose 169 mg/dL (74-106); Potassium 4.6 mmol/L (3.5-5.1); Protein, Total 6.5 g/dL (6.4-8.2); Sodium Level 134 mmol/L (136-145)
== END | disposition home or self-care (01) ==
LOC: OLS.SW 05:00
PROVIDERS: PCP Internal Medicine; Visit Provider Family Medicine
DX: Z79.899 Other long term (current) drug therapy (principal)
CPT/HCPCS: 36415; 80048; 80076; 85027; 85652

== ENCOUNTER → 2022-09-20 | Outpatient (REF) | payer MEDICAID, SELFPAY | END | disposition home or self-care (01) | LOC: OLS.SW 05:00 | PROVIDERS: PCP Internal Medicine; Visit Provider Internal Medicine | DX: D64.9 Anemia, unspecified (principal) | CPT/HCPCS: 36415; 86850; 86900; 86901 ==

== ENCOUNTER → 2022-09-21 | Outpatient (CLI) | payer MEDICAID, SELFPAY ==
[2022-09-21] MEDS: 0.9% NaCl Peripheral Flush Adult/Peds IV (08:58)
[2022-09-21 09:04] VITALS: BP 113/56; PULSE 92; RESP 20; TEMP 37.2; O2SAT 100
[2022-09-21 09:49] VITALS: BP 119/54; PULSE 85; RESP 18; TEMP 37.1; O2SAT 97
[2022-09-21 10:49] VITALS: BP 124/64; PULSE 84; RESP 18; TEMP 528.8; TEMP 983.8
[2022-09-21] MEDS: Furosemide 20 MG/2 ML VIAL IV (11:38)
[2022-09-21 12:13] VITALS: BP 118/53; PULSE 94; RESP 18; TEMP 37.3
[2022-09-21 13:13] VITALS: BP 123/72; PULSE 97; RESP 16; TEMP 37.2; O2SAT 100
[2022-09-21 13:55] VITALS: BP 130/70; PULSE 101; RESP 16; TEMP 37.2; O2SAT 100
== END | disposition home or self-care (01) ==
LOC: MEDOUTP 08:47
PROVIDERS: PCP Internal Medicine; Referring Provider Family Medicine; Visit Provider Family Medicine
DX: D64.9 Anemia, unspecified (principal)
CPT/HCPCS: 36415; 36430; 86920; J7040; P9016; A4216; J1940

== ENCOUNTER → 2022-09-26 | Outpatient (REF) | payer MEDICAID, SELFPAY ==
[2022-09-26 07:24] LABS: Hematocrit 24.4 % (40-54); Hemoglobin 7.3 g/dL (13.0-16.5); Mean Corp Hgb Conc 29.9 g/dL (32-36); Mean Corpuscular Volume 90.4 fL (80-94); Mean Platelet Vol. 9.3 fl (6.2-12.0); Platelet Count 521 K/mm3 (150-450); RBC Distribution Width SD 56.1 fl (35.1-43.9); White Blood Count 9.2 K/mm3 (4.4-11.0)
[2022-09-26 07:35] LABS: AST(SGOT) 36 U/L (15-37); Alanine Aminotransfer ALT/SGPT 96 U/L (16-61); Albumin, Serum 1.8 g/dL (3.2-5.0); Alkaline Phosphatase 226 U/L (45-117); Anion Gap 5 (5-15); BUN 27 mg/dL (7-18); BUN/Creat Ratio 26.7 RATIO (10-20); Bilirubin, Direct 0.08 mg/dL (0.00-0.30); Calcium,Total 9.5 mg/dL (8.5-10.1); Chloride 103 mmol/L (98-107); Creatinine, Serum 1.01 mg/dL (0.70-1.30); EST Glomerular Filtration Rate 82 mL/min (>60); Est Glom Filt Rate - Afr Amer 99 mL/min (>60); Globulin 4.7 g/dL (2.2-4.2); Glucose 178 mg/dL (74-106); Potassium 5.1 mmol/L (3.5-5.1); Protein, Total 6.5 g/dL (6.4-8.2); Sodium Level 133 mmol/L (136-145)
[2022-09-26 07:36] LABS: Erythrocyte Sedimentation Rate 41 mm/hr (0-20)
== END | disposition home or self-care (01) ==
LOC: OLS.SW 05:00
PROVIDERS: PCP Internal Medicine; Visit Provider Family Medicine
DX: Z79.899 Other long term (current) drug therapy (principal)
CPT/HCPCS: 36415; 80048; 80076; 85027; 85652

== ENCOUNTER → 2022-10-03 | Outpatient (REF) | payer MEDICAID, SELFPAY ==
[2022-10-03 09:24] LABS: Hematocrit 21.9 % (40-54); Hemoglobin 6.6 g/dL (13.0-16.5); Mean Corp Hgb Conc 30.1 g/dL (32-36); Mean Corpuscular Hgb 27.2 pg (27.0-32.0); Mean Corpuscular Volume 90.1 fL (80-94); Mean Platelet Vol. 9.1 fl (6.2-12.0); Platelet Count 399 K/mm3 (150-450); RBC Distribution Width CV 16.8 % (11.6-14.6); RBC Distribution Width SD 55.4 fl (35.1-43.9); Red Blood Count 2.43 M/mm3 (4.6-6.2); White Blood Count 12.9 K/mm3 (4.4-11.0)
[2022-10-03 09:37] LABS: AST(SGOT) 59 U/L (15-37); Alanine Aminotransfer ALT/SGPT 113 U/L (16-61); Albumin, Serum 1.9 g/dL (3.2-5.0); Alkaline Phosphatase 265 U/L (45-117); Anion Gap 4 (5-15); BUN 34 mg/dL (7-18); BUN/Creat Ratio 29.3 RATIO (10-20); Bilirubin, Direct 0.19 mg/dL (0.00-0.30); Calcium,Total 9.6 mg/dL (8.5-10.1); Chloride 103 mmol/L (98-107); Creatinine, Serum 1.16 mg/dL (0.70-1.30); EST Glomerular Filtration Rate 70 mL/min (>60); Est Glom Filt Rate - Afr Amer 84 mL/min (>60); Globulin 4.9 g/dL (2.2-4.2); Glucose 145 mg/dL (74-106); Protein, Total 6.8 g/dL (6.4-8.2); Sodium Level 130 mmol/L (136-145)
[2022-10-03 10:20] LABS: Erythrocyte Sedimentation Rate 115 mm/hr (0-20)
== END | disposition home or self-care (01) ==
LOC: OLS.SW 05:00
PROVIDERS: PCP Internal Medicine; Visit Provider Family Medicine
DX: Z79.899 Other long term (current) drug therapy (principal)
CPT/HCPCS: 36415; 80048; 80076; 85027; 85652

== ENCOUNTER 2022-10-05 09:03 | Inpatient (IN) | payer MEDICAID, SELFPAY ==
[2022-10-05] VITALS (15 sets, daily range): BP systolic 82–124; BP diastolic 37–68; PULSE 82–97; RESP 13–22; TEMP 36.2–37.7; O2SAT 93–99; BMI 56.9; BMI 55.7
--- NOTE | 2022-10-05 09:31 | EKG12_ITS ---
Test Reason : LOW BP Blood Pressure : / mmHG Vent. Rate : 085 BPM Atrial Rate : 085 BPM P-R Int : 182 ms QRS Dur : 084 ms QT Int : 346 ms P-R-T Axes : 026 001 030 degrees QTc Int : 411 ms Normal sinus rhythm Low voltage QRS Borderline ECG When compared with ECG of 13-JUL-2022 05:49, QT has shortened Confirmed by MARSHA EL, ELZBIETA ([id number]), proposal editor JAHAIRA RAJAN ([id number]) on 10/10/2022 10:47:10 AM Referred By: Anmol Champagne Confirmed By:ELZBIETA LARSON MD
--- NOTE | 2022-10-05 10:13 | EX.ED.DYSGE1 ---
HPI History of Present Illness Chief Complaint: Hypotension Narrative Narrative: 52-year-old male presents from [facility] where he has been for the last 4 months. He relates history that he has an infected sacral ulcer that continues to bleed. His symptoms began over a year ago when he states that he had a bariatric bed at home with hard mattress. He developed a sacral ulcer that ultimately became infected. 4 months ago, he had debridement of the wound at [facility], and has been at the [facility] for at least 4 months. He states he has not been home in over a year. He continues to have bleeding from his sacral ulcer. They do wet-to-dry dressings, and took a large portion of his buttocks during surgery. He presents because he had a hemoglobin of 6.6 today, and was hypotensive. However, he states that his systolic blood pressure usually runs in the 90s. He is slightly weak, and states that he had a fever this morning at the [facility]. He states that there is drainage from his decubitus ulcer which is malodorous. Additionally, they do wet-to-dry dressings and he has is changed twice a day, but he continues to bleed from his ulceration. [facility] Medical History Acute respiratory failure, unspecified whether with hypoxia or hypercapnia Alcohol abuse Anemia Anemia Anxiety and depression Anxiety disorder Bacteremia due to Enterococcus Avelar's palsy Biceps tendonitis on left Blister (nonthermal), right foot, initial encounter Chronic ulcer of right foot with fat layer exposed CPAP (continuous positive airway pressure) dependence Debility Decubitus ulcer of sacral region, stage 4 Decubitus ulcer, buttock Depression Diabetes DVT (deep venous thrombosis) Edema of both lower extremities Elevated liver transaminase level Essential (primary) hypertension Former smoker Headache Hemoglobin A1c 8.0% or greater History of foot ulcer History of stress test history of tooth removal Hyperlipidemia Incontinence 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 Inflammation of joint of left shoulder region Insomnia Left shoulder pain 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 Long-term insulin use Morbid (severe) obesity due to excess calories Nausea & vomiting Neuromuscular dysfunction of bladder, unspecified Neuropathic pain Noninfective gastroenteritis and colitis Obesities, morbid Obstructive sleep apnea On home oxygen therapy Osteoporosis Other seasonal allergic rhinitis Paraplegia Pressure sore of left ischium, unstageable Pressure ulcer Pressure ulcer of left buttock, unstageable Pressure ulcer of right buttock, unstageable Pressure ulcer of sacral region, unstageable Primary osteoarthritis, left shoulder Sacral ulcer Sacral wound Self-catheterizes urinary bladder Sepsis Skin necrosis Skin ulcer of left hip Skin ulcer of right hip Sleep apnea Stage II pressure ulcer Stage II pressure ulcer of buttock Type 2 diabetes mellitus with diabetic polyneuropathy Wound infection Home Medications acetaminophen 325 mg capsule 650 mg PO Q4H PRN pain 02/28/22 [History Last Taken 07/09/22] lurasidone 60 mg tablet (Latuda) 40 mg PO DINNER depression 04/12/22 [History Last Taken 07/08/22] peg [id number] 1 %-0.2 %-0.2 % eye drops (Artificial Tears ([id number])) 1 drp EACH EYE Q1H PRN DRY EYES #0 mL 04/14/22 [Rx Last Taken 1 Week Ago ~07/02/22] doxazosin 1 mg tablet 1 mg PO QHS PROSTATE 06/05/22 [History Last Taken 07/08/22] dicyclomine 20 mg tablet 20 mg PO BID #1 TAB 07/14/22 [Rx Last Taken Unknown] lisinopril 20 mg tablet 20 mg PO DAILY #1 TAB 07/14/22 [Rx Last Taken Unknown] loperamide 2 mg tablet (Anti-Diarrheal (loperamide)) 4 mg PO Q6H PRN loose stool #1 TAB 07/14/22 [Rx Last Taken Unknown] nystatin 100,000 unit/gram topical powder (Nyamyc) 1 applic topical BID #0 grams 07/14/22 [Rx Last Taken Unknown] dulaglutide 4.5 mg/0.5 mL subcutaneous pen injector (Trulicity) See Rx Instructions .Route .COMPLEX 08/15/22 [History Last Taken Unknown] insulin lispro 100 unit/mL subcutaneous pen (Humalog KwikPen (U-100) Insulin) See Rx Instructions .Route .COMPLEX 08/15/22 [History Last Taken Unknown] furosemide 40 mg tablet 40 mg PO DAILY 08/18/22 [History Last Taken Unknown] atorvastatin 20 mg tablet 40 mg PO QHS cholesterol lowering #90 tabs 08/29/22 [Rx Last Taken Unknown] sodium hypochlorite 0.25 % solution (Dakin's Solution) 1 applic topical DAILY #473 mL 09/08/22 [Rx Last Taken Unknown] Lactobacillus rhamnosus GG 10 billion cell-inulin 200 mg capsule 1 cap PO DAILY 09/21/22 [History Last Taken Unknown] aluminum-magnesium hydroxide 225 mg-200 mg/5 mL oral suspension 30 ml PO Q4H PRN PRN reflux 09/21/22 [History Last Taken Unknown] amlodipine 10 mg tablet 10 mg PO QHS 09/21/22 [History Last Taken Unknown] ascorbic acid (vitamin C) 500 mg tablet (Vitamin C) 500 mg PO DAILY 09/21/22 [History Last Taken Unknown] bisacodyl 10 mg rectal suppository 10 mg NE DAILY PRN Constipation 09/21/22 [History Last Taken Unknown] codeine 10 mg-guaifenesin 100 mg/5 mL oral liquid (Guaifenesin AC) 10 ml PO Q4H PRN PRN Cough 09/21/22 [History Last Taken Unknown] ferrous sulfate 325 mg (65 mg iron) tablet 325 mg PO DAILY 09/21/22 [History Last Taken Unknown] gabapentin 400 mg capsule 400 mg PO 4X/DAY 09/21/22 [History Last Taken Unknown] multivitamin,tx-minerals 1 tab PO DAILY 09/21/22 [History Last Taken Unknown] psyllium husk 2.6 gram/4.1 gram oral powder 1 tbsp PO DAILY PRN PRN Diarrhea 09/21/22 [History Last Taken Unknown] sodium phosphates 19 gram-7 gram/118 mL enema (Fleet Enema) 1 ml NE DAILY PRN PRN Constipation 09/21/22 [History Last Taken Unknown] blood sugar diagnostic (OneTouch Verio test strips) #300 ea 09/25/22 [Rx Last Taken Unknown] insulin regular hum U-500 conc 500 unit/mL(3 mL) subcut pen (Humulin R U-500 (Conc) Insulin Kwikpen) 55 unit (0.11 mL) subcut TID #30 mL 09/25/22 [Rx Last Taken Unknown] pen needle, diabetic 32 gauge x 5/32 (BD Ultra-Fine Jenny Pen Needle) #300 ea 09/25/22 [Rx Last Taken Unknown] Allergy/AdvReac Type Severity Reaction Status Date / Time metformin AdvReac Unknown Diarrhea Verified 08/30/22 09:36 Family History Father Heart disease Myocardial infarction, Onset Age: 64 Hyperlipemia Mother Heart disease Hypertension Hyperlipemia Uncle Heart disease Grandfather Diabetes Grandmother Diabetes Surgical History History of back surgery Social History Smoking Status: Never smoker alcohol intake: former substance use type: does not use what type of physical activity do you participate in: none ROS ROS ED ROS Narrative Constitutional: No fever, no chills. Generalized weakness. HEENT: No sore throat. No neck pain. No loss of vision. No rhinorrhea. Cardiovascular: No chest pain. No palpitations. No pedal edema. Respiratory: No cough, no shortness of breath. Abdominal: No abdominal pain. No nausea. No vomiting. Genitourinary: No dysuria. No hematuria. Musculoskeletal: No myalgias. No arthralgias. Neurologic: No headaches. No dizziness. No lightheadedness. Skin: No rash. No change in color. Bleeding sacral oral ulcer. Psychiatric: No depression. No anxiety. EXAM Physical Exam Narrative Exam Narrative: Afebrile. Vital signs noted. HEENT: Normocephalic. Atraumatic. PERRL, EOMI. Neck soft and supple. No point tenderness or step off. Cardiovascular: Regular rate and rhythm. No murmurs, rubs, or gallops appreciated. Respiratory: No tachypnea. Lungs clear to auscultation bilaterally. Gastrointestinal: Abdomen soft, obese, nontender, with normoactive bowel sounds. No rebound or guarding. Neurological: Awake. Alert. Nonfocal, nonlateralizing. Skin: No rash. Normal color. No pallor. Musculoskeletal: No pedal edema. Full range of motion extremities. Const Vital Signs: 10/05/22 09:04 10/05/22 09:07 10/05/22 09:07 Temperature 98.9 F 98.9 F Temperature Source Temporal Temporal Pulse Rate 88 88 Respiratory Rate 16 16 Respiratory Effort Respiratory Pattern Blood Pressure 86/45 L 86/45 L Blood Pressure Mean 58 58 Blood Pressure Source Blood Pressure Position Blood Pressure Location Pulse Ox 97 96 97 Oxygen Delivery Method Room Air Room Air Room Air 10/05/22 10:31 10/05/22 10:32 10/05/22 10:33 Temperature 99.2 F H Temperature Source Oral Pulse Rate 87 Respiratory Rate 18 Respiratory Effort Normal Non-Labored Respiratory Pattern Normal Blood Pressure 91/37 L Blood Pressure Mean 55 Blood Pressure Source Blood Pressure Position Blood Pressure Location Pulse Ox 95 96 Oxygen Delivery Method Room Air Room Air 10/05/22 11:16 10/05/22 11:29 10/05/22 11:31 Temperature 97.5 F L 97.6 F L 97.2 F L Temperature Source Temporal Temporal Temporal Pulse Rate 86 82 85 Respiratory Rate 15 14 13 Respiratory Effort Respiratory Pattern Blood Pressure 91/49 L 82/37 L 96/50 L Blood Pressure Mean 63 52 65 Blood Pressure Source Monitor Monitor Blood Pressure Position Sitting Sitting Blood Pressure Location Right Arm Right Arm Pulse Ox 95 98 95 Oxygen Delivery Method Room Air Room Air Room Air MDM MDM MDM Narrative Medical decision making narrative: I reviewed his laboratory work from the outside facility which did show he had a low hemoglobin. He will be typed and crossmatched but CBC and CMP obtained along with a lactic acid. He is hypotensive here but still mentating well. Sepsis work-up was pursued. In review of the patient's laboratory work, he has an elevated white count of 17.7, I do think this may be secondary to his sacral decubitus ulcer infection, his hemoglobin is low at 6.3. He was crossed and typed matched for 2 units of packed red blood cells. Platelet count normal at 382. Coagulation studies are negative with an INR of 1.3 but APTT slightly elevated at 38.8 which I think is nonspecific. Patient is hyponatremic at 129, it has been low in the past, almost chronically, but once again he had been bolused normal saline. He was transiently hypotensive for him in the 80s but still mentating. He has returned to baseline with a soft systolic blood pressure of 96. BUN is elevated at 45 with a creatinine of 0.06, while it has been about 2 in the past, this is an acute kidney injury as he had a normal creatinine previously. Urinalysis shows greater than 100 WBCs but I think this may be chronic from his chronic indwelling Garcia catheter, antibiotics were deferred. I discussed the patient with Dr. Singh because of his anemia requiring transfusions, and his hyponatremia with transient hypotension. Disposition is admit in stable condition to the medical surgical floor. History & Record Review Additional record(s) reviewed:: Prior inpatient record and Prior ED visit Lab Data Attestation: I reviewed the patient's lab results. Labs: Laboratory Results - last 24 hr 10/04/22 10/05/22 10/05/22 06:15 10:40 10:40 WBC 17.7 H RBC 2.33 L Hgb 6.3 L Hct 21.1 L MCV 90.6 MCH 27.0 MCHC 29.9 L RDW Std Deviation 55.9 H RDW Coeff of Fei 17.1 H Plt Count 382 MPV 9.0 Immature Gran % (Auto) 3.100 H Neut % (Auto) 78.4 H Lymph % (Auto) 10.3 L [place] % (Auto) 7.2 Eos % (Auto) 0.7 Baso % (Auto) 0.3 Absolute Neuts (auto) 13.9 H Absolute Lymphs (auto) 1.82 Nucleated RBC % 0 PT 16.3 H INR 1.3 APTT 38.8 H Sodium Potassium Chloride Carbon Dioxide Anion Gap BUN Creatinine Estim Creat Clear Calc Est GFR (MDRD) Af Amer Est GFR (MDRD) Non-Af BUN/Creatinine Ratio Glucose Lactic Acid Calcium Total Bilirubin AST ALT Alkaline Phosphatase Total Protein Albumin Globulin Albumin/Globulin Ratio Urine Color Urine Clarity Urine pH Ur Specific Douglas Urine Protein Urine Glucose (UA) Urine Ketones Urine Occult Blood Urine Nitrite Urine Bilirubin Urine Urobilinogen Ur Leukocyte Esterase Urine RBC Urine WBC Ur Squamous Epith Cells Amorphous Sediment Urine Bacteria Urine Mucus Blood Type O POSITIVE Antibody Screen NEGATIVE Crossmatch See Detail 10/05/22 10/05/22 10/05/22 10:40 10:40 11:16 WBC RBC Hgb Hct MCV MCH MCHC RDW Std Deviation RDW Coeff of Fei Plt Count MPV Immature Gran % (Auto) Neut % (Auto) Lymph % (Auto) [place] % (Auto) Eos % (Auto) Baso % (Auto) Absolute Neuts (auto) Absolute Lymphs (auto) Nucleated RBC % PT INR APTT Sodium 129 L Potassium 5.1 Chloride 101 Carbon Dioxide 21.0 Anion Gap 7 BUN 45 H Creatinine 2.06 H Estim Creat Clear Calc 43.66 Est GFR (MDRD) Af Amer 43 L Est GFR (MDRD) Non-Af 36 L BUN/Creatinine Ratio 21.8 H Glucose 249 H Lactic Acid 1.8 Calcium 9.7 Total Bilirubin 0.40 AST 53 H ALT 111 H Alkaline Phosphatase 280 H Total Protein 7.0 Albumin 1.8 L Globulin 5.2 H Albumin/Globulin Ratio 0.3 L Urine Color Yellow Urine Clarity Cloudy Urine pH 6.5 Ur Specific Douglas 1.015 Urine Protein 500 H Urine Glucose (UA) Normal Urine Ketones 5 H Urine Occult Blood 250 H Urine Nitrite Negative Urine Bilirubin 1 H Urine Urobilinogen 1 H Ur Leukocyte Esterase 500 H Urine RBC 5-10 SEEN Urine WBC >100 SEEN Ur Squamous Epith Cells 0-5 SEEN Amorphous Sediment 1+ Urine Bacteria 2+ Urine Mucus 1+ Blood Type Antibody Screen Crossmatch Radiography Diagnostic Testing: Clinical Impression(s) from Imaging Studies Chest X-Ray 10/05/22 10:16 IMPRESSION: No acute abnormality is seen. Electronically Signed: Andre Irving MD at 10:48 EDT , Discharge Plan Dx/Rx/DC Orders Clinical Impression: Infected decubitus ulcer, Diabetes, Paraplegia, Decubitus ulcer of sacral region, stage 4, ION (acute kidney injury), Hyponatremia, Chronic hypotension, Anemia requiring transfusions Disposition Disposition: [facility]
--- NOTE | 2022-10-05 10:16 | RAD_ITS ---
STUDY: X-RAY CHEST REASON FOR EXAM: Male, 52 years old. cad TECHNIQUE: Single AP portable view of the chest. COMPARISON: Comparison is made with prior study March 11, 2022. FINDINGS: The lungs are clear and expanded. Scattered calcified granulomas. There is no demonstrated pleural abnormality. Normal size heart. Normal mediastinum and ok. Normal visualized pulmonary arteries. Normal visualized aortic arch and descending thoracic aorta. There is a mild dextroscoliosis of the thoracic spine. Normal visualized ribs, clavicles, and shoulders. There is no demonstrated abnormality of the visualized soft tissue structures of the upper abdomen. RAD/Chest 1 View (Portable) IMPRESSION: No acute abnormality is seen. Electronically Signed: Andre Irving MD at 10:48 EDT ,
[2022-10-05] MEDS: 0.9% Normal Saline 1,000 ML 999 ML IV (10:34)
[2022-10-05 10:52] LABS: Absolute Lymphocyte Count 1.82 X10^3/uL (0.83-4.51); Absolute Neutrophil Count 13.9 X10^3/uL (2.0-7.7); Basophil# 0.06 X10^3/uL; Basophil% 0.3 % (0-1); Eosinophil# 0.13 X10^3/uL; Eosinophils% 0.7 % (0-5); Hematocrit 21.1 % (40-54); Hemoglobin 6.3 g/dL (13.0-16.5); Lymphocyte # 1.82 X10^3/ul (0.83-4.51); Lymphocyte % 10.3 % (19-41); Mean Corp Hgb Conc 29.9 g/dL (32-36); Mean Corpuscular Volume 90.6 fL (80-94); Monocyte# 1.28 X10^3/uL; Monocyte% 7.2 % (0-10); NRBC Flagged by Analyzer 0 % (0-5); Neutrophil # 13.89 X10^3/uL (2.7-7.7); Neutrophil % 78.4 % (47-70); Platelet Count 382 K/mm3 (150-450); RBC Distribution Width CV 17.1 % (11.6-14.6); RBC Distribution Width SD 55.9 fl (35.1-43.9); Red Blood Count 2.33 M/mm3 (4.6-6.2); White Blood Count 17.7 K/mm3 (4.4-11.0)
[2022-10-05 11:04] LABS: International Normalized Ratio 1.3; Prothrombin Time (Protime)PT. 16.3 SECONDS (11.7-14.9)
[2022-10-05 11:05] LABS: Partial Thromboplast Time 38.8 Seconds (24.1-36.2)
[2022-10-05 11:20] LABS: Lactic Acid 1.8 mmol/L (0.4-1.9)
[2022-10-05 11:22] LABS: Color, Urine Yellow (Yellow); Glucose, Dipstick Normal (Normal); Ketone-Dipstick 5 mg/dl (Negative); Leukocyte Esterase-Dipstick 500 /ul (Negative); Nitrite-Dipstick Negative (Negative); Occult Blood-Urine 250 /ul (Negative); Protein-Dipstick 500 mg/dl (Negative); Specific Gravity, Urine 1.015 (1.002-1.030); Urine Clarity Cloudy (Clear); Urine Urobilinogen 1 mg/dl (Normal); Urine pH 6.5 (5.0 - 8.0)
[2022-10-05 11:24] LABS: Urine Bilirubin Dipstick 1 mg/dL (Negative)
[2022-10-05 11:33] LABS: White Blood Cells >100 SEEN /hpf (0-5)
[2022-10-05 11:34] LABS: Amorphous Sediment 1+; Bacteria 2+ /hpf (None Seen); Mucous, Urine 1+ /hpf (<or=2+); Red Blood Cells-Urine 5-10 SEEN /hpf (0-5); Squamous Epithelial Cells - UA 0-5 SEEN /hpf (0-5)
[2022-10-05 11:41] LABS: ALB/GLOB Ratio 0.3 RATIO (0.9-2.4); AST(SGOT) 53 U/L (15-37); Alanine Aminotransfer ALT/SGPT 111 U/L (16-61); Albumin, Serum 1.8 g/dL (3.2-5.0); Alkaline Phosphatase 280 U/L (45-117); Anion Gap 7 (5-15); BUN 45 mg/dL (7-18); BUN/Creat Ratio 21.8 RATIO (10-20); Calcium,Total 9.7 mg/dL (8.5-10.1); Chloride 101 mmol/L (98-107); Creatinine, Serum 2.06 mg/dL (0.70-1.30); EST Glomerular Filtration Rate 36 mL/min (>60); Est Glom Filt Rate - Afr Amer 43 mL/min (>60); Estimated Creatinine Clearance 43.66 ml/min; Globulin 5.2 g/dL (2.2-4.2); Glucose 249 mg/dL (74-106); Potassium 5.1 mmol/L (3.5-5.1); Sodium Level 129 mmol/L (136-145)
--- NOTE | 2022-10-05 12:12 | HP.PCM.HOS_ITS ---
HPI - General General Date of Admission: 10/05/22 Date of Service: 10/05/22 Chief Complaint: hypotension HPI Narrative SERENITY MACHADO, is a 52 M with a PMH as outlined who presents via the ED on 10/05/2022 with a complaint of hypotension. He presented from his SNF where he has been for the past 4 months after he had extensive debridement for his sacral decubitus ulcer at [facility]. HE says he continues to bleed from the ulcer site, and keeps having wet to dry dressing to the site.He says he is chronically hypotensive. He says he was found to have hemoglobin of 6.6 so he was brought in to the ED. He admitted to fever and feeling weak. HE denied any nausea, vomiting, abdominal pain, dizziness or any other symptoms. He did say the drainage from his decubitus ulcer is offensive in smell. Vitals in the ED were blood pressure of 96/50, pulse rate of 85 respirate rate of 13. Temperature was 97.2 Fahrenheit and he is saturating at 95% on room air. CBC showed WBC of 17.7, hemoglobin of 6.3 and platelets of 382. INR is 1.3. Chemistry shows sodium of 129, potassium of 5.1 and creatinine of 2.06. AST is mildly elevated at 53 with ALT of 111. Urinalysis from his chronic Mckinney catheter shows more than 100 WBC and negative nitrites as well as 2+ bacteria. Chest x-ray showed no acute cardiopulmonary abnormality. He has been admitted to be managed for acute on chronic anemia in the setting of bleeding sacral decubitus ulcer. [facility] Medical History (Updated 10/05/22 @ 14:23 by Alysa Sanon) Acute respiratory failure, unspecified whether with hypoxia or hypercapnia Alcohol abuse Anemia Anemia Anemia Anxiety Anxiety and depression Anxiety disorder Bacteremia due to Enterococcus Avelar's palsy Biceps tendonitis on left Blister (nonthermal), right foot, initial encounter Chronic indwelling Mckinney catheter Chronic pain Chronic ulcer of right foot with fat layer exposed CPAP (continuous positive airway pressure) dependence Debility Decubitus ulcer of sacral region, stage 4 Decubitus ulcer, buttock Depression Depression Diabetes DVT (deep venous thrombosis) Edema of both lower extremities Elevated liver transaminase level Essential (primary) hypertension Former smoker Headache Hemoglobin A1c 8.0% or greater History of foot ulcer History of stress test history of tooth removal Hyperlipidemia Hypertension Incontinence 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 Inflammation of joint of left shoulder region Insomnia 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 shoulder 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 Long-term insulin use Morbid (severe) obesity due to excess calories Nausea & vomiting Neuromuscular dysfunction of bladder, unspecified Neuropathic pain Non-smoker Noninfective gastroenteritis and colitis Obesities, morbid Obstructive sleep apnea On home oxygen therapy Osteoporosis Other seasonal allergic rhinitis Paraplegia Pressure sore of left ischium, unstageable Pressure ulcer Pressure ulcer of left buttock, unstageable Pressure ulcer of right buttock, unstageable Pressure ulcer of sacral region, unstageable Primary osteoarthritis, left shoulder Sacral ulcer Sacral wound Self-catheterizes urinary bladder Sepsis Skin necrosis Skin ulcer of left hip Skin ulcer of right hip Sleep apnea Stage II pressure ulcer Stage II pressure ulcer of buttock Type 2 diabetes mellitus with diabetic polyneuropathy Wound infection Home Medications acetaminophen 325 mg capsule 650 mg PO Q4H PRN pain 02/28/22 [History Last Taken 07/09/22] lurasidone 60 mg tablet (Latuda) 40 mg PO DINNER depression 04/12/22 [History Last Taken 07/08/22] peg [id number] 1 %-0.2 %-0.2 % eye drops (Artificial Tears ([id number])) 1 drp EACH EYE Q1H PRN DRY EYES #0 mL 04/14/22 [Rx Last Taken 1 Week Ago ~07/02/22] doxazosin 1 mg tablet 1 mg PO QHS PROSTATE 06/05/22 [History Last Taken 07/08/22] loperamide 2 mg tablet (Anti-Diarrheal (loperamide)) 4 mg PO Q6H PRN loose stool #1 TAB 07/14/22 [Rx Last Taken Unknown] dulaglutide 4.5 mg/0.5 mL subcutaneous pen injector (Trulicity) See Rx Instructions .Route .COMPLEX dm 08/15/22 [History Last Taken Unknown] insulin lispro 100 unit/mL subcutaneous pen (Humalog KwikPen (U-100) Insulin) See Rx Instructions .Route .COMPLEX dm 08/15/22 [History Last Taken Unknown] furosemide 40 mg tablet 40 mg PO DAILY diuresis 08/18/22 [History Last Taken Unknown] atorvastatin 20 mg tablet 40 mg PO QHS cholesterol lowering #90 tabs 08/29/22 [Rx Last Taken Unknown] Lactobacillus rhamnosus GG 10 billion cell-inulin 200 mg capsule 1 cap PO DAILY probiotic 09/21/22 [History Last Taken Unknown] aluminum-magnesium hydroxide 225 mg-200 mg/5 mL oral suspension 30 ml PO Q4H PRN PRN reflux 09/21/22 [History Last Taken Unknown] amlodipine 10 mg tablet 10 mg PO QHS bp 09/21/22 [History Last Taken Unknown] ascorbic acid (vitamin C) 500 mg tablet (Vitamin C) 500 mg PO DAILY supplement 09/21/22 [History Last Taken Unknown] bisacodyl 10 mg rectal suppository 10 mg CO DAILY PRN Constipation 09/21/22 [History Last Taken Unknown] ferrous sulfate 325 mg (65 mg iron) tablet 325 mg PO DAILY supplement 09/21/22 [History Last Taken Unknown] gabapentin 400 mg capsule 400 mg PO 4X/DAY nerve pain 09/21/22 [History Last Taken Unknown] multivitamin,tx-minerals 1 tab PO DAILY supplement 09/21/22 [History Last Taken Unknown] psyllium husk 2.6 gram/4.1 gram oral powder 1 tbsp PO DAILY PRN PRN Diarrhea 09/21/22 [History Last Taken Unknown] sodium phosphates 19 gram-7 gram/118 mL enema (Fleet Enema) 1 ml CO DAILY PRN PRN Constipation 09/21/22 [History Last Taken Unknown] blood sugar diagnostic (OneTouch Verio test strips) 10/05/22 [History Last Taken Unknown] dicyclomine 20 mg tablet 20 mg PO BID ibs 10/05/22 [History Last Taken Unknown] insulin regular hum U-500 conc 500 unit/mL(3 mL) subcut pen (Humulin R U-500 (Conc) Insulin Kwikpen) 55 unit subcut TID dm 10/05/22 [History Last Taken Unknown] lisinopril 20 mg tablet 20 mg PO DAILY bp 10/05/22 [History Last Taken Unknown] nystatin 100,000 unit/gram topical powder (Nyamyc) 1 applic topical BID skin care 10/05/22 [History Last Taken Unknown] pen needle, diabetic 32 gauge x 5/32 (BD Ultra-Fine Jenny Pen Needle) 10/05/22 [History Last Taken Unknown] sodium hypochlorite 0.25 % solution (Dakin's Solution) 1 applic topical DAILY skin care 10/05/22 [History Last Taken Unknown] Allergy/AdvReac Type Severity Reaction Status Date / Time metformin AdvReac Unknown Diarrhea Verified 08/30/22 09:36 Family History Father Heart disease Myocardial infarction, Onset Age: 64 Hyperlipemia Mother Heart disease Hypertension Hyperlipemia Uncle Heart disease Grandfather Diabetes Grandmother Diabetes Surgical History History of back surgery Social History Smoking Status: Never smoker alcohol intake: former substance use type: does not use what type of physical activity do you participate in: none ROS Review of Systems ROS Unobtainable: Denies due to encephalopathy Constitutional Constitutional: Reports fever(s), malaise and weakness; Denies anorexia, change in weight, chills or fatigue ENT HEENT: Denies dysphagia, headache(s) or nasal discharge Cardiovascular Cardiovascular: Denies chest pain, dyspnea on exertion, lightheadedness, orthopnea, palpitations, paroxysmal nocturnal dyspnea or rapid heart rate Respiratory/Chest Respiratory/Chest: Denies cough, dyspnea, productive cough, shortness of breath at rest, shortness of breath with exertion or wheezing Gastrointestinal Gastrointestinal: Reports constipation; Denies abdominal pain, nausea or vomiting Genitourinary Genitourinary: Denies burning urination or dysuria Musculoskeletal Musculoskeletal: Denies arthralgias or back pain Neurologic Neurologic: Reports focal weakness; Denies confusion or headache(s) Psychiatric Psychiatric: Denies anxiety or depression Hematologic/Lymphatic Hematologic/Lymphatic: Reports anemia and easy bleeding Vital Signs Vital Signs Vital Signs: 10/05/22 09:04 10/05/22 09:07 10/05/22 09:07 Temperature 98.9 F 98.9 F Temperature Source Temporal Temporal Pulse Rate 88 88 Respiratory Rate 16 16 Respiratory Effort Respiratory Pattern Blood Pressure 86/45 L 86/45 L Blood Pressure Mean 58 58 Blood Pressure Source Blood Pressure Position Blood Pressure Location Pulse Ox 97 96 97 Oxygen Delivery Method Room Air Room Air Room Air 10/05/22 10:31 10/05/22 10:32 10/05/22 10:33 Temperature 99.2 F H Temperature Source Oral Pulse Rate 87 Respiratory Rate 18 Respiratory Effort Normal Non-Labored Respiratory Pattern Normal Blood Pressure 91/37 L Blood Pressure Mean 55 Blood Pressure Source Blood Pressure Position Blood Pressure Location Pulse Ox 95 96 Oxygen Delivery Method Room Air Room Air 10/05/22 11:16 10/05/22 11:29 10/05/22 11:31 Temperature 97.5 F L 97.6 F L 97.2 F L Temperature Source Temporal Temporal Temporal Pulse Rate 86 82 85 Respiratory Rate 15 14 13 Respiratory Effort Respiratory Pattern Blood Pressure 91/49 L 82/37 L 96/50 L Blood Pressure Mean 63 52 65 Blood Pressure Source Monitor Monitor Blood Pressure Position Sitting Sitting Blood Pressure Location Right Arm Right Arm Pulse Ox 95 98 95 Oxygen Delivery Method Room Air Room Air Room Air Weight Weight: 408 lb 11.792 oz Body Mass Index (BMI) 56.9 Physical Exam Const alert, oriented x3 and no apparent distress Constitutional Narrative: super morbid obesity General Appearance: cooperative HEENT normocephalic, head/scalp atraumatic, hearing grossly normal bilaterally and moist oral mucous membranes Mouth: oral and palatal mucosa normal Eyes PERRL, EOMs intact bilaterally and conjunctivae normal Neck no lymphadenopathy and supple Resp normal respiratory effort, no use of accessory muscles and clear to auscultation bilaterally Cardio regular rate, regular rhythm, S1 normal heart sound, S2 normal heart sound and no murmurs GI normal to inspection, nondistended, normoactive bowel sounds, soft to palpation and non-tender Extremity normal to inspection, full ROM and no clubbing, cyanosis or edema Skin Skin Narrative: intact dressing over sacral decubitus ulcer. Neuro oriented x3, CN's II-XII intact bilaterally and moves all extremities Sensorium / Orientation: awake and alert Motor Exam: strength 5/5 throughout Psych affect normal Results Lab / Micro Data Result Diagrams: 10/05/22 10:40 10/05/22 10:40 Labs: Laboratory Results - last 24 hr 10/04/22 06:15: Blood Type O POSITIVE, Antibody Screen NEGATIVE, Crossmatch See Detail 10/05/22 10:40: WBC 17.7 H, RBC 2.33 L, Hgb 6.3 L, Hct 21.1 L, MCV 90.6, MCH 27.0, MCHC 29.9 L, RDW Std Deviation 55.9 H, RDW Coeff of Fei 17.1 H, Plt Count 382, MPV 9.0, Immature Gran % (Auto) 3.100 H, Neut % (Auto) 78.4 H, Lymph % (Auto) 10.3 L, Patrick % (Auto) 7.2, Eos % (Auto) 0.7, Baso % (Auto) 0.3, Absolute Neuts (auto) 13.9 H, Absolute Lymphs (auto) 1.82, Nucleated RBC % 0 10/05/22 10:40: PT 16.3 H, INR 1.3, APTT 38.8 H 10/05/22 10:40: Sodium 129 L, Potassium 5.1, Chloride 101, Carbon Dioxide 21.0, Anion Gap 7, BUN 45 H, Creatinine 2.06 H, Estim Creat Clear Calc 43.66, Est GFR (MDRD) Af Amer 43 L, Est GFR (MDRD) Non-Af 36 L, BUN/Creatinine Ratio 21.8 H, Glucose 249 H, Calcium 9.7, Total Bilirubin 0.40, AST 53 H, ALT 111 H, Alkaline Phosphatase 280 H, Total Protein 7.0, Albumin 1.8 L, Globulin 5.2 H, Albumin/Globulin Ratio 0.3 L 10/05/22 10:40: Lactic Acid 1.8 10/05/22 11:16: Urine Color Yellow, Urine Clarity Cloudy, Urine pH 6.5, Ur Specific Glen 1.015, Urine Protein 500 H, Urine Glucose (UA) Normal, Urine Ketones 5 H, Urine Occult Blood 250 H, Urine Nitrite Negative, Urine Bilirubin 1 H, Urine Urobilinogen 1 H, Ur Leukocyte Esterase 500 H, Urine RBC 5-10 SEEN, Urine WBC >100 SEEN, Ur Squamous Epith Cells 0-5 SEEN, Amorphous Sediment 1+, Urine Bacteria 2+, Urine Mucus 1+ Radiology Impression Chest X-Ray 10/05/22 10:16 IMPRESSION: No acute abnormality is seen. Electronically Signed: Andre Irving MD at 10:48 EDT , Assessment & Plan Assessment/Plan (1) Acute on chronic anemia: (2) Infected decubitus ulcer: (3) Sacral ulcer: PLAN: Plan #Acute on chronic anemia due to bleeding sacral ulcer * says he had profuse bleeding when dressing was being changed today. This has happened before. * Hemoglobin is 6.3 today. * Will transfuse with 2 units of packed red blood cells. * consult plastic surgery as he may need some debridement done * wound care consulted * #Bleeding sacral ulcer: * says he has an offensive discharge from the site. Discharge is always off ensive. * will start on IV zosyn as wbc is also elevated at 17. * plastic surgery consulted * #Chronic indwelling mckinney catheter * States catheter has been changed about 6 weeks. Urinalysis showed more than 100 bacteria. * Will get urine cultures and repeat urinalysis after Mckinney catheter is changed. * #Paraplegia: This is chronic. PT OT consulted. Type 2 diabetes mellitus: On dulaglutide. On U-500 55 units 3 times daily. Insulin sliding scale. Checks ACHS. #Super morbid obesity: BMI is 55. Complicates acute care, expected recovery and prognosis. #Hypertension: On amlodipine and lisinopril #Hyperlipidemia: On statin. DVT prophylaxis: SCDs. CODE STATUS: Full code * Patient counseled extensively about different types of CODE STATUS including full code, DNR CCA and DNR CCA. Patient elects to be full code. * Total [id number] time 18 minutes. Total time spent on evaluation and management of patient, reviewing chart, discussing plan with patient, discussion with nursing and ancillary staff as well as documentation: 75 mins Charges/Coding Visit Charges Inpatient E&M: 19243 Init Hosp L3 Procedures Hospitalists Procedures: 91086 Advncd Care Plan 30 Min
--- NOTE | 2022-10-05 14:31 | CASEMGMT ---
Social Work SW noted pt admitted from [facility]. SW attempted to meet with pt in room, however Nurse Janie and PRODUCT ASSURANCE ENGINEER's in room assisting in cleaning/attending to pt wound. Pt will be working on admission questions after. SW will follow up at later time on discharge plan. JAVAD Villagomez
[2022-10-05] MEDS: 0.9% Saline Lock 10 ML Syringe IV ×3 (15:07→17:59)
--- NOTE | 2022-10-05 15:11 | WOUNDNOTE ---
wound photo: sacrum/bilateral ischium/scrotum
[2022-10-05] MEDS: Mag Hydrox/Al Hydrox/Simeth 30 ML UDC PO ×2 (16:03→19:50)
[2022-10-05 16:35] LABS: Bedside Glucose 195 mg/dL (74-106)
[2022-10-05] MEDS: Insulin Lispro 100 UNIT/ML INSULN.PEN SC ×2 (16:53→22:34)
[2022-10-05] MEDS: Acetaminophen 325 MG Tablet 650 MG PO (16:55)
[2022-10-05] MEDS: 0.9% Normal Saline 1,000 ML 125 ML IV (17:31)
[2022-10-05] MEDS: Gabapentin 400 MG Capsule PO ×2 (17:43→22:29)
[2022-10-05] MEDS: LURASIDONE HCL 20 MG TABLET 40 MG PO (17:43)
[2022-10-05] MEDS: Insulin U-500 UNITS/ML PEN 55 UNITS SC (17:43)
[2022-10-05 17:46] LABS: Probe Check PASS; Staph aureus DNA By PCR POSITIVE (Negative)
[2022-10-05 17:48] LABS: M R Staph aureus DNA By PCR POSITIVE (Negative)
[2022-10-05 21:01] LABS: Bedside Glucose 338 mg/dL (74-106)
[2022-10-05] MEDS: Ondansetron 4 MG/2 ML Vial IV (21:18)
[2022-10-05] MEDS: amLODIPine 10 MG Tablet PO (22:29)
[2022-10-05] MEDS: Doxazosin 1 MG Tablet PO (22:29)
[2022-10-05] MEDS: Dicyclomine 10 MG Capsule 20 MG PO (22:29)
[2022-10-05] MEDS: Atorvastatin Calcium 20 MG Tablet 40 MG PO (22:29)
[2022-10-05] MEDS: Loperamide 2 MG Capsule 4 MG PO (22:29)
[2022-10-05] MEDS: Nystatin Powder 15gm Bottle 1 APPLIC TOPICAL (22:35)
[2022-10-06] VITALS (8 sets, daily range): BP systolic 100–134; BP diastolic 41–64; PULSE 63–92; RESP 16–28; TEMP 37.1–37.7; O2SAT 93–99
[2022-10-06] MEDS: 0.9% Normal Saline 1,000 ML 125 ML IV (01:18)
[2022-10-06] MEDS: Insulin Lispro 100 UNIT/ML INSULN.PEN SC ×3 (08:02→17:02)
[2022-10-06] MEDS: Insulin U-500 UNITS/ML PEN 55 UNITS SC ×3 (08:03→17:02)
[2022-10-06 08:28] LABS: Absolute Lymphocyte Count 1.51 X10^3/uL (0.83-4.51); Absolute Neutrophil Count 14.3 X10^3/uL (2.0-7.7); Basophil# 0.06 X10^3/uL; Basophil% 0.3 % (0-1); Eosinophil# 0.14 X10^3/uL; Eosinophils% 0.8 % (0-5); Hematocrit 23.6 % (40-54); Hemoglobin 7.5 g/dL (13.0-16.5); Lymphocyte # 1.51 X10^3/ul (0.83-4.51); Lymphocyte % 8.6 % (19-41); Mean Corp Hgb Conc 31.8 g/dL (32-36); Mean Corpuscular Hgb 26.9 pg (27.0-32.0); Mean Corpuscular Volume 84.6 fL (80-94); Mean Platelet Vol. 9.1 fl (6.2-12.0); Monocyte# 1.11 X10^3/uL; Monocyte% 6.3 % (0-10); NRBC Flagged by Analyzer 0.3 % (0-5); Neutrophil # 14.31 X10^3/uL (2.7-7.7); Neutrophil % 81.4 % (47-70); Platelet Count 333 K/mm3 (150-450); RBC Distribution Width CV 17.2 % (11.6-14.6); RBC Distribution Width SD 53.2 fl (35.1-43.9); Red Blood Count 2.79 M/mm3 (4.6-6.2); White Blood Count 17.6 K/mm3 (4.4-11.0)
[2022-10-06 08:30] LABS: Bedside Glucose 171 mg/dL (74-106)
[2022-10-06 08:50] LABS: Anion Gap 3 (5-15); BUN 40 mg/dL (7-18); BUN/Creat Ratio 30.1 RATIO (10-20); Calcium,Total 9.2 mg/dL (8.5-10.1); Chloride 107 mmol/L (98-107); Creatinine, Serum 1.33 mg/dL (0.70-1.30); EST Glomerular Filtration Rate 60 mL/min (>60); Est Glom Filt Rate - Afr Amer 72 mL/min (>60); Estimated Creatinine Clearance 67.63 ml/min; Glucose 186 mg/dL (74-106); Potassium 5.5 mmol/L (3.5-5.1); Sodium Level 129 mmol/L (136-145)
--- NOTE | 2022-10-06 08:59 | CASEMGMT ---
Discharge Planning Patient wishes to return to [facility]. Updates sent. Jojo Montes
--- NOTE | 2022-10-06 09:23 | CASEMGMT ---
Discharge Planning Per [facility], patient is a bed hold and can return. Jojo Montes
[2022-10-06] MEDS: Gabapentin 400 MG Capsule PO ×4 (10:19→21:26)
[2022-10-06] MEDS: DAKIN'S SOL HALF STRENGTH (=0.25%) 1 APPLIC TOPICAL (10:21)
[2022-10-06] MEDS: Furosemide 40 MG Tablet PO (10:21)
[2022-10-06] MEDS: Dicyclomine 10 MG Capsule 20 MG PO ×2 (10:21→21:26)
[2022-10-06] MEDS: Ascorbic Acid 500 MG Tablet PO (10:22)
[2022-10-06] MEDS: Nystatin Powder 15gm Bottle 1 APPLIC TOPICAL ×2 (10:22→21:38)
[2022-10-06] MEDS: Loperamide 2 MG Capsule 4 MG PO (10:25)
[2022-10-06] MEDS: Acetaminophen 325 MG Tablet 650 MG PO ×2 (10:27→18:10)
--- NOTE | 2022-10-06 11:45 | PCM.RX.CS ---
Consult Pharmacy has been consulted to manage selected antiobiotic: Vancomycin Type of Consult: New start Prior Doses of Antibiotics Received/Current Regimen: Medications Vancomycin HCl 2,000 mg/ (Sodium Chloride) 540 mls @ 250 mls/hr IV X1 ONE Stop: 10/06/22 12:09 Last Admin: 10/06/22 11:00 Dose: 250 mls/hr Labs: Sodium 129 mmol/L (136-145) L 10/06/22 08:20 Potassium 5.5 mmol/L (3.5-5.1) H 10/06/22 08:20 Chloride 107 mmol/L (98-107) 10/06/22 08:20 Carbon Dioxide 19.0 mmol/L (21.0-32.0) L 10/06/22 08:20 Anion Gap 3 (5-15) L 10/06/22 08:20 BUN 40 mg/dL (7-18) H 10/06/22 08:20 Creatinine 1.33 mg/dL (0.70-1.30) H 10/06/22 08:20 Est GFR (MDRD) Af Amer 72 mL/min (>60) 10/06/22 08:20 Est GFR (MDRD) Non-Af 60 mL/min (>60) 10/06/22 08:20 BUN/Creatinine Ratio 30.1 RATIO (10-20) H 10/06/22 08:20 Glucose 186 mg/dL (74-106) H 10/06/22 08:20 Microbiology: Microbiology 10/05/22 14:50 Wound - Sacral Wound Culture - Preliminary GNR non transportation officer Streptococcus pyogenes 10/05/22 11:16 Urine Catheter - Catheter Urine Culture - Preliminary GNR non transportation officer Weight used for dosin kg Estimated Creatinine Clearance: 68 Goal Trough: 15-20 mcg/mL Pharmacy Plan for Drug Dosinmg IV x1, 1500mg IV q12h with trough prior to 4th dose per policy. Pharmacy Service will continue to monitor and adjust dosing as required. Follow-Up Labs: Trough Vancomycin - 10/07 @ [id number]
--- NOTE | 2022-10-06 12:25 | CASEMGMT ---
Social Work SW met with pt who confirms that he is from [facility] and plans to return there upon return. 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 Plan: [facility], when medically ready JAVAD Tay
[2022-10-06] MEDS: Psyllium 1 PACKET PO (12:34)
[2022-10-06 13:06] LABS: Bedside Glucose 181 mg/dL (74-106)
[2022-10-06] MEDS: Sodium Polystyrene Sulfonate 15 GM/60 ML UDC 30 GM PO (14:27)
--- NOTE | 2022-10-06 14:52 | CON.PCM.SX_ITS ---
Assessment & Plan Assessment/Plan (1) Infected decubitus ulcer: PLAN: Patient has an extensive infected decubitus ulcer. It appears also be affecting his posterior scrotum. Patient had debridement several months ago and the wound continues to be infected. He was not given diverting colostomy as he is morbidly obese and it was felt that the colon would not survive ring brought all the way out to the skin. Patient actually gained weight instead of losing weight and is an even worse candidate for surgery at this time. I recommend transferring this patient to a tertiary center where they may care for his wounds and perform debridement if necessary. This would necessitate extensive debridement which I do not normally perform. Patient may likely need skin grafting versus diversion. Given the complex of his case and his morbid obesity I recommend that he be transferred to tertiary center, I discussed this with the hospitalist. Papito Rios MD Pager: [facility] [address] [place] [address], [address] [place] [address] Office: HPI Consult Data Date of Consult: 10/06/22 HPI Narrative HPI Narrative: SERENITY MACHADO, is a 52 M who presents with extensive decubitus ulcer. Patient has an extensive history and reports that he was having drainage and he was sent here by his senior living. [facility] Medical History (Updated 10/05/22 @ 14:23 by Alysa Sanon) Acute respiratory failure, unspecified whether with hypoxia or hypercapnia Alcohol abuse Anemia Anemia Anemia Anxiety Anxiety and depression Anxiety disorder Bacteremia due to Enterococcus Avelar's palsy Biceps tendonitis on left Blister (nonthermal), right foot, initial encounter Chronic indwelling Garcia catheter Chronic pain Chronic ulcer of right foot with fat layer exposed CPAP (continuous positive airway pressure) dependence Debility Decubitus ulcer of sacral region, stage 4 Decubitus ulcer, buttock Depression Depression Diabetes DVT (deep venous thrombosis) Edema of both lower extremities Elevated liver transaminase level Essential (primary) hypertension Former smoker Headache Hemoglobin A1c 8.0% or greater History of foot ulcer History of stress test history of tooth removal Hyperlipidemia Hypertension Incontinence 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 Inflammation of joint of left shoulder region Insomnia Left shoulder pain 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 (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) use of anticoagulants shelter (current) 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 Long-term insulin use Morbid (severe) obesity due to excess calories Nausea & vomiting Neuromuscular dysfunction of bladder, unspecified Neuropathic pain Non-smoker Noninfective gastroenteritis and colitis Obesities, morbid Obstructive sleep apnea On home oxygen therapy Osteoporosis Other seasonal allergic rhinitis Paraplegia Pressure sore of left ischium, unstageable Pressure ulcer Pressure ulcer of left buttock, unstageable Pressure ulcer of right buttock, unstageable Pressure ulcer of sacral region, unstageable Primary osteoarthritis, left shoulder Sacral ulcer Sacral wound Self-catheterizes urinary bladder Sepsis Skin necrosis Skin ulcer of left hip Skin ulcer of right hip Sleep apnea Stage II pressure ulcer Stage II pressure ulcer of buttock Type 2 diabetes mellitus with diabetic polyneuropathy Wound infection Home Medications acetaminophen 325 mg capsule 650 mg PO Q4H PRN pain 02/28/22 [History Last Taken 07/09/22] lurasidone 60 mg tablet (Latuda) 40 mg PO DINNER depression 04/12/22 [History Last Taken 07/08/22] peg [id number]-[id number] 1 %-0.2 %-0.2 % eye drops (Artificial Tears ([id number])) 1 drp EACH EYE Q1H PRN DRY EYES #0 mL 04/14/22 [Rx Last Taken 1 Week Ago ~07/02/22] doxazosin 1 mg tablet 1 mg PO QHS PROSTATE 06/05/22 [History Last Taken 07/08/22] loperamide 2 mg tablet (Anti-Diarrheal (loperamide)) 4 mg PO Q6H PRN loose stool #1 TAB 07/14/22 [Rx Last Taken Unknown] dulaglutide 4.5 mg/0.5 mL subcutaneous pen injector (Trulicity) See Rx Instructions .Route .COMPLEX dm 08/15/22 [History Last Taken Unknown] insulin lispro 100 unit/mL subcutaneous pen (Humalog KwikPen (U-100) Insulin) See Rx Instructions .Route .COMPLEX dm 08/15/22 [History Last Taken Unknown] furosemide 40 mg tablet 40 mg PO DAILY diuresis 08/18/22 [History Last Taken Unknown] atorvastatin 20 mg tablet 40 mg PO QHS cholesterol lowering #90 tabs 08/29/22 [Rx Last Taken Unknown] Lactobacillus rhamnosus GG 10 billion cell-inulin 200 mg capsule 1 cap PO DAILY probiotic 09/21/22 [History Last Taken Unknown] aluminum-magnesium hydroxide 225 mg-200 mg/5 mL oral suspension 30 ml PO Q4H PRN PRN reflux 09/21/22 [History Last Taken Unknown] amlodipine 10 mg tablet 10 mg PO QHS bp 09/21/22 [History Last Taken Unknown] ascorbic acid (vitamin C) 500 mg tablet (Vitamin C) 500 mg PO DAILY supplement 09/21/22 [History Last Taken Unknown] bisacodyl 10 mg rectal suppository 10 mg IN DAILY PRN Constipation 09/21/22 [History Last Taken Unknown] ferrous sulfate 325 mg (65 mg iron) tablet 325 mg PO DAILY supplement 09/21/22 [History Last Taken Unknown] gabapentin 400 mg capsule 400 mg PO 4X/DAY nerve pain 09/21/22 [History Last Taken Unknown] multivitamin,tx-minerals 1 tab PO DAILY supplement 09/21/22 [History Last Taken Unknown] psyllium husk 2.6 gram/4.1 gram oral powder 1 tbsp PO DAILY PRN PRN Diarrhea 09/21/22 [History Last Taken Unknown] sodium phosphates 19 gram-7 gram/118 mL enema (Fleet Enema) 1 ml IN DAILY PRN PRN Constipation 09/21/22 [History Last Taken Unknown] blood sugar diagnostic (uConnectuch Verio test strips) 10/05/22 [History Last Taken Unknown] dicyclomine 20 mg tablet 20 mg PO BID ibs 10/05/22 [History Last Taken Unknown] insulin regular hum U-500 conc 500 unit/mL(3 mL) subcut pen (Humulin R U-500 (Conc) Insulin Kwikpen) 55 unit subcut TID dm 10/05/22 [History Last Taken Unknown] lisinopril 20 mg tablet 20 mg PO DAILY bp 10/05/22 [History Last Taken Unknown] nystatin 100,000 unit/gram topical powder (Nyamyc) 1 applic topical BID skin care 10/05/22 [History Last Taken Unknown] pen needle, diabetic 32 gauge x 5/32 (BD Ultra-Fine Jenny Pen Needle) 10/05/22 [History Last Taken Unknown] sodium hypochlorite 0.25 % solution (Dakin's Solution) 1 applic topical DAILY s kin care 10/05/22 [History Last Taken Unknown] Allergy/AdvReac Type Severity Reaction Status Date / Time metformin AdvReac Unknown Diarrhea Verified 08/30/22 09:36 Family History Father Heart disease Myocardial infarction, Onset Age: 64 Hyperlipemia Mother Heart disease Hypertension Hyperlipemia Uncle Heart disease Grandfather Diabetes Grandmother Diabetes Surgical History History of back surgery Social History Smoking Status: Never smoker alcohol intake: former substance use type: does not use what type of physical activity do you participate in: none Physical Exam Const alert and oriented x3 HEENT normocephalic Eyes PERRL Resp normal respiratory effort Cardio Rate: regular rate Rhythm: regular rhythm GI soft to palpation Skin Wound Narrative: Extensive decubitus ulcer with ulceration of the posterior scrotum Lab / Micro Data Result Diagrams: 10/06/22 08:20 10/06/22 08:20 Labs: Laboratory Results - last 24 hr 10/04/22 06:15: Blood Type O POSITIVE, Antibody Screen NEGATIVE, Crossmatch See Detail 10/05/22 11:16: Urine Color Yellow, Urine Clarity Cloudy, Urine pH 6.5, Ur Specific [place] 1.015, Urine Protein 500 H, Urine Glucose (UA) Normal, Urine Ketones 5 H, Urine Occult Blood 250 H, Urine Nitrite Negative, Urine Bilirubin 1 H, Urine Urobilinogen 1 H, Ur Leukocyte Esterase 500 H, Urine RBC 5-10 SEEN, Urine WBC >100 SEEN, Ur Squamous Epith Cells 0-5 SEEN, Amorphous Sediment 1+, Urine Bacteria 2+, Urine Mucus 1+ 10/05/22 14:50: S.aureus Protein A PCR POSITIVE H, MRSA (PCR) POSITIVE H 10/05/22 16:15: POC Glucose 195 H 10/05/22 20:37: POC Glucose 338 H 10/06/22 07:59: POC Glucose 171 H 10/06/22 08:20: WBC 17.6 H, RBC 2.79 L, Hgb 7.5 L, Hct 23.6 L, MCV 84.6 D, MCH 26.9 L, MCHC 31.8 L D, RDW Std Deviation 53.2 H, RDW Coeff of Fei 17.2 H, Plt Count 333, MPV 9.1, Immature Gran % (Auto) 2.600 H, Neut % (Auto) 81.4 H, Lymph % (Auto) 8.6 L, [place] % (Auto) 6.3, Eos % (Auto) 0.8, Baso % (Auto) 0.3, Absolute Neuts (auto) 14.3 H, Absolute Lymphs (auto) 1.51, Nucleated RBC % 0.3 10/06/22 08:20: Sodium 129 L, Potassium 5.5 H, Chloride 107, Carbon Dioxide 19.0 L, Anion Gap 3 L, BUN 40 H, Creatinine 1.33 H, Estim Creat Clear Calc 67.63, Est GFR (MDRD) Af Amer 72, Est GFR (MDRD) Non-Af 60, BUN/Creatinine Ratio 30.1 H, Glucose 186 H, Calcium 9.2 10/06/22 12:29: POC Glucose 181 H Micro: Microbiology 10/05/22 14:50 Wound - Sacral Wound Culture - Preliminary GNR non crankshaft balancer Streptococcus pyogenes 10/05/22 11:16 Urine Catheter - Catheter Urine Culture - Preliminary GNR non crankshaft balancer
--- NOTE | 2022-10-06 15:07 | CASEMGMT ---
According to [facility]'s website, the following tertiary care facilities are in network: [facility], [facility], [place], [facility], [facility], [facility], [facility] and .
--- NOTE | 2022-10-06 17:07 | DS.PCM_ITS ---
Providers Date of Admission: 10/05/22 Date of Discharge: 10/06/22 Primary Care Physician: Dr. 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 Routine Comment: 10/05/22 16:51 Consult: Plastic Surgery Routine Consulting Provider: Joseph Flores Reason for Consult: bleeding decubitus ulcer EMERGENT Consult: No Notified: Yes Date Notified: 10/05/22 Time Notified: 16:51 Method of Notification: Text 10/06/22 12:33 Consult: General Surgery Routine Consulting Provider: Papito Rios Reason for Consult: infected sacral decubitus ulcer EMERGENT Consult: No Notified: Yes Date Notified: 10/06/22 Time Notified: 12:35 Method of Notification: Verbal Reason For Visit: ACUTE ON CHRONIC ANEMIA DUE TO BLEEDING PEPTIC ULC Diagnosis Discharge Diagnosis (1) Infected decubitus ulcer: Status: Acute Code(s): L89.90 - Pressure ulcer of unspecified site, unspecified stage; L08.9 - Local infection of the skin and subcutaneous tissue, unspecified Plan #Acute on chronic anemia due to bleeding sacral ulcer * says he had profuse bleeding when dressing was being changed today. This has happened before. * Hemoglobin is 6.3 today. * Will transfuse with 2 units of packed red blood cells. * consult plastic surgery as he may need some debridement done * wound care consulted * #Bleeding sacral ulcer: * says he has an offensive discharge from the site. Discharge is always offensive. * will start on IV zosyn as wbc is also elevated at 17. * plastic surgery consulted * #Chronic indwelling mckinney catheter * States catheter has been changed about 6 weeks. Urinalysis showed more than 100 bacteria. * Will get urine cultures and repeat urinalysis after Mckinney catheter is changed. * #Paraplegia: This is chronic. PT OT consulted. Type 2 diabetes mellitus: On dulaglutide. On U-500 55 units 3 times daily. Insulin sliding scale. Checks ACHS. #Super morbid obesity: BMI is 55. Complicates acute care, expected recovery and prognosis. #Hypertension: On amlodipine and lisinopril #Hyperlipidemia: On statin. DVT prophylaxis: SCDs. CODE STATUS: Full code * Patient counseled extensively about different types of CODE STATUS including full code, DNR CCA and DNR CCA. Patient elects to be full code. * Total [id number] time 18 minutes. Total time spent on evaluation and management of patient, reviewing chart, discussing plan with patient, discussion with nursing and ancillary staff as well as documentation: 75 mins Medications at Discharge Home Medications acetaminophen 325 mg capsule 650 mg PO Q4H PRN pain 02/28/22 lurasidone 60 mg tablet (Latuda) 40 mg PO DINNER depression 04/12/22 peg [id number]-gzqyfazf 1 %-0.2 %-0.2 % eye drops (Artificial Tears ([id number])) 1 drp EACH EYE Q1H PRN DRY EYES #0 mL 04/14/22 doxazosin 1 mg tablet 1 mg PO QHS PROSTATE 06/05/22 loperamide 2 mg tablet (Anti-Diarrheal (loperamide)) 4 mg PO Q6H PRN loose stool #1 TAB 07/14/22 dulaglutide 4.5 mg/0.5 mL subcutaneous pen injector (Trulicity) See Rx Instructions .Route .COMPLEX dm 08/15/22 insulin lispro 100 unit/mL subcutaneous pen (Humalog KwikPen (U-100) Insulin) See Rx Instructions .Route .COMPLEX dm 08/15/22 furosemide 40 mg tablet 40 mg PO DAILY diuresis 08/18/22 atorvastatin 20 mg tablet 40 mg PO QHS cholesterol lowering #90 tabs 08/29/22 Lactobacillus rhamnosus GG 10 billion cell-inulin 200 mg capsule 1 cap PO DAILY probiotic 09/21/22 aluminum-magnesium hydroxide 225 mg-200 mg/5 mL oral suspension 30 ml PO Q4H PRN PRN reflux 09/21/22 amlodipine 10 mg tablet 10 mg PO QHS bp 09/21/22 ascorbic acid (vitamin C) 500 mg tablet (Vitamin C) 500 mg PO DAILY supplement 09/21/22 bisacodyl 10 mg rectal suppository 10 mg WV DAILY PRN Constipation 09/21/22 ferrous sulfate 325 mg (65 mg iron) tablet 325 mg PO DAILY supplement 09/21/22 gabapentin 400 mg capsule 400 mg PO 4X/DAY nerve pain 09/21/22 multivitamin,tx-minerals 1 tab PO DAILY supplement 09/21/22 psyllium husk 2.6 gram/4.1 gram oral powder 1 tbsp PO DAILY PRN PRN Diarrhea 09/21/22 sodium phosphates 19 gram-7 gram/118 mL enema (Fleet Enema) 1 ml WV DAILY PRN PRN Constipation 09/21/22 blood sugar diagnostic (WisairTouch Verio test strips) 10/05/22 dicyclomine 20 mg tablet 20 mg PO BID ibs 10/05/22 insulin regular hum U-500 conc 500 unit/mL(3 mL) subcut pen (Humulin R U-500 (Conc) Insulin Kwikpen) 55 unit subcut TID dm 10/05/22 lisinopril 20 mg tablet 20 mg PO DAILY bp 10/05/22 nystatin 100,000 unit/gram topical powder (Nyamyc) 1 applic topical BID skin care 10/05/22 pen needle, diabetic 32 gauge x 5/32 (BD Ultra-Fine Jenny Pen Needle) 10/05/22 sodium hypochlorite 0.25 % solution (Dakin's Solution) 1 applic topical DAILY skin care 10/05/22 Hospital Course Operations None Summary of Care Provided Minutes Spent on Discharge: 55 Hospital Course: SERENITY MACHADO, is a 52 M with a PMH as outlined who presents via the ED on 10/05/2022 with a complaint of hypotension. He presented from his SNF where he h as been for the past 4 months after he had extensive debridement for his sacral decubitus ulcer at [facility]. HE says he continues to bleed from the ulcer site, and keeps having wet to dry dressing to the site.He says he is chronically hypotensive. He says he was found to have hemoglobin of 6.6 so he was brought in to the ED. He admitted to fever and feeling weak. HE denied any nausea, vomiting, abdominal pain, dizziness or any other symptoms. He did say the drainage from his decubitus ulcer is offensive in smell. Vitals in the ED were blood pressure of 96/50, pulse rate of 85 respirate rate of 13.? Temperature was 97.2 Fahrenheit and he is saturating at 95% on room air.? CBC showed WBC of 17.7, hemoglobin of 6.3 and platelets of 382.? INR is 1.3.? Chemistry shows sodium of 129, potassium of 5.1 and creatinine of 2.06.? AST is mildly elevated at 53 with ALT of 111.? Urinalysis from his chronic Mckinney catheter shows more than 100 WBC and negative nitrites as well as 2+ bacteria.? Chest x-ray showed no acute cardiopulmonary abnormality.? He was admitted to be managed for acute on chronic anemia in the setting of bleeding sacral decubitus ulcer. He was transfused with 2 units of packed red blood cells. He was started on IV vancomycin and Zosyn. Wound cultures grew MRSA. Plastic surgery was consulted for debridement. However per plastic surgery, since general surgery had seen him in the past, they would defer to general surgery recommended that patient would likely need transfer as his debridement that he needed was too extensive to be done here. General surgery was consulted and also did review patient and recommended transfer. Patient was accepted at [facility] and transferred to [facility] on 10/06/2022. Patient was seen and examined prior to discharge. He had no complaints and felt well. He had an uneventful night. Review of systems otherwise negative. Labs and vitals reviewed. Home medication reviewed and reconciled. Physical Exam Const alert, oriented x3 and no apparent distress Constitutional Narrative: super morbid obesity General Appearance: cooperative and comfortable HEENT normocephalic, head/scalp atraumatic, hearing grossly normal bilaterally and moist oral mucous membranes Eyes PERRL, EOMs intact bilaterally and conjunctivae normal Neck no lymphadenopathy and supple Resp normal respiratory effort, no use of accessory muscles and clear to auscultation bilaterally Cardio regular rate, regular rhythm, S1 normal heart sound, S2 normal heart sound and no murmurs GI normal to inspection, nondistended, normoactive bowel sounds, soft to palpation and non-tender Extremity normal to inspection, full ROM and no clubbing, cyanosis or edema Skin Skin Narrative: extensive necrotic ulceration all over right buttock, with exposed anal sphincte r. Ulcer covered extensively in fecal matter. Neuro oriented x3, CN's II-XII intact bilaterally and moves all extremities Sensorium / Orientation: awake and alert Motor Exam: strength 5/5 throughout Psych affect normal Weight / BMI Weight Weight: 400 lb Body Mass Index (BMI) 55.7 ABG / Lab / Microbiology Data Result Diagrams: 10/06/22 08:20 10/06/22 08:20 Laboratory: Laboratory Results - last 24 hr 10/04/22 06:15: Crossmatch See Detail 10/05/22 11:16: Urine Color Yellow, Urine Clarity Cloudy, Urine pH 6.5, Ur Specific [place] 1.015, Urine Protein 500 H, Urine Glucose (UA) Normal, Urine Ketones 5 H, Urine Occult Blood 250 H, Urine Nitrite Negative, Urine Bilirubin 1 H, Urine Urobilinogen 1 H, Ur Leukocyte Esterase 500 H, Urine RBC 5-10 SEEN, Urine WBC >100 SEEN, Ur Squamous Epith Cells 0-5 SEEN, Amorphous Sediment 1+, Urine Bacteria 2+, Urine Mucus 1+ 10/05/22 14:50: S.aureus Protein A PCR POSITIVE H, MRSA (PCR) POSITIVE H 10/05/22 20:37: POC Glucose 338 H 10/06/22 07:59: POC Glucose 171 H 10/06/22 08:20: WBC 17.6 H, RBC 2.79 L, Hgb 7.5 L, Hct 23.6 L, MCV 84.6 D, MCH 26.9 L, MCHC 31.8 L D, RDW Std Deviation 53.2 H, RDW Coeff of Fei 17.2 H, Plt Count 333, MPV 9.1, Immature Gran % (Auto) 2.600 H, Neut % (Auto) 81.4 H, Lymph % (Auto) 8.6 L, [place] % (Auto) 6.3, Eos % (Auto) 0.8, Baso % (Auto) 0.3, Absolute Neuts (auto) 14.3 H, Absolute Lymphs (auto) 1.51, Nucleated RBC % 0.3 10/06/22 08:20: Sodium 129 L, Potassium 5.5 H, Chloride 107, Carbon Dioxide 19.0 L, Anion Gap 3 L, BUN 40 H, Creatinine 1.33 H, Estim Creat Clear Calc 67.63, Est GFR (MDRD) Af Amer 72, Est GFR (MDRD) Non-Af 60, BUN/Creatinine Ratio 30.1 H, Glucose 186 H, Calcium 9.2 10/06/22 12:29: POC Glucose 181 H Microbiology: Microbiology 10/05/22 14:50 Wound - Sacral Gram Stain - Final 10/05/22 14:50 Wound - Sacral Wound Culture - Preliminary GNR non calendering supervisor Streptococcus pyogenes 10/05/22 11:16 Urine Catheter - Catheter Urine Culture - Preliminary GNR non calendering supervisor Meaningful Use Info Meaningful Use Diagnoses (Choose all that apply): None applicable Discharge Plan Admission Admit Date/Time: 10/05/22 12:22 Attending Provider: Jerri Singh Primary Care Provider: iJmmie Rand Consulting Providers: Joseph Flores ; Papito Rios Discharge Orders/Prescriptions Prescriptions: No Action acetaminophen 325 mg capsule 650 mg PO Q4H PRN (Reason: pain) Rx Instructions: do not exceed 4gm in 24 hrs furosemide 40 mg tablet 40 mg PO DAILY lurasidone [Latuda] 60 mg Tablet 40 mg PO DINNER Rx Instructions: must administer with food (at least 350 calories) Artificial Tears(co-ctcr-wogm) 1-0.2-0.2 % Drops 1 drp EACH EYE Q1H PRN (Reason: DRY EYES) Qty: 0 0RF doxazosin 1 mg tablet 1 mg PO QHS Rx Instructions: TAKE 1 TABLET BY MOUTH AT BEDTIME FOR BENIGN PROSTATIC HYPERPLASIA loperamide [Anti-Diarrheal (loperamide)] 2 mg tablet 4 mg PO Q6H PRN (Reason: loose stool) Qty: 1 0RF Rx Instructions: prn diarrhea insulin lispro [Humalog KwikPen Insulin] 100 unit/mL insulin pen See Rx Instructions .ROUTE .COMPLEX Rx Instructions: sliding scale dose subcutaneously Trulicity 4.5 mg/0.5 mL pen injector See Rx Instructions .ROUTE .COMPLEX Rx Instructions: 4.5 mg subcutaneously every sunday gabapentin 400 mg Capsule 400 mg PO 4X/DAY ascorbic acid (vitamin C) [Vitamin C] 500 mg Tablet 500 mg PO DAILY bisacodyl 10 mg Suppository 10 mg WV DAILY PRN (Reason: Constipation) ferrous sulfate 325 mg (65 mg iron) Tablet 325 mg PO DAILY aluminum-magnesium hydroxide 225-200 mg/5 mL Suspension 30 ml PO Q4H PRN PRN (Reason: reflux) Fleet Enema 19-7 gram/118 mL Enema 1 ml WV DAILY PRN PRN (Reason: Constipation) Theragran-M Tablet 1 tab PO DAILY psyllium husk 2.6 gram/4.1 gram Powder 1 tbsp PO DAILY PRN PRN (Reason: Diarrhea) Rx Instructions: mix into at least 8 oz of water or juice before administering Lactobac. rhamnosus GG-inulin 10 billion cell -200 mg Capsule 1 cap PO DAILY amlodipine 10 mg tablet 10 mg PO QHS lisinopril 20 mg tablet 20 mg PO DAILY (DME) OneTouch Verio test strips Strip See Rx Instructions .ROUTE Rx Instructions: three times daily dicyclomine 20 mg tablet 20 mg PO BID nystatin [Nyamyc] 100,000 unit/gram powder 1 applic topical BID Dakin's Solution 0.25 % solution 1 applic topical DAILY (DME) pen needle, diabetic [BD Ultra-Fine Jenny Pen Needle] 32 gauge x 5/32 needle See Rx Instructions .ROUTE .MEDSUPPLY Rx Instructions: tid Humulin R U-500 (Conc) Kwikpen 500 unit/mL (3 mL) insulin pen 55 unit SUBCUT TID atorvastatin 20 mg tablet 40 mg PO QHS Qty: 90 3RF Referrals / Follow Up: Jimmie Rand MD [Primary Care Provider] - Disposition Disposition (needs filled in before D/C Order can be placed): Acute Care Hospital Charges/Coding Visit Charges Inpatient E&M: 66493 Disch Hosp >30min
[2022-10-06] MEDS: Ferrous Sulfate 325 MG Tablet PO (17:08)
--- NOTE | 2022-10-06 17:10 | PCA ---
Addendum entered by Rachel Moreno 10/06/22 17:14: accepting physician is Dr. Hogan Original Note: Patient has a bed assignment for [facility], will be going to [address], BED A. phone number to call report is [phone]
[2022-10-06] MEDS: LURASIDONE HCL 20 MG TABLET 40 MG PO (17:11)
[2022-10-06 17:36] LABS: Bedside Glucose 167 mg/dL (74-106)
[2022-10-06] MEDS: 0.9% Saline Lock 10 ML Syringe IV (21:14)
[2022-10-06] MEDS: Doxazosin 1 MG Tablet PO (21:26)
[2022-10-06] MEDS: Atorvastatin Calcium 20 MG Tablet 40 MG PO (21:26)
[2022-10-06] MEDS: Mag Hydrox/Al Hydrox/Simeth 30 ML UDC PO (21:27)
[2022-10-06 22:05] LABS: Bedside Glucose 149 mg/dL (74-106)
== END 2022-10-06 22:10 | disposition short-term general hospital (02) | DRG 380 ==
LOC: ED 12:18 → MS3 13:07
PROVIDERS: Admitting Provider Student in an Organized Health Care Education/Training Program; Emergency Provider Emergency Medicine; PCP Internal Medicine; Referring Provider Emergency Medicine; Visit Provider Student in an Organized Health Care Education/Training Program
DX: L89.154 Pressure ulcer of sacral region, stage 4 (principal); N17.9 Acute kidney failure, unspecified; G82.20 Paraplegia, unspecified; E87.1 Hypo-osmolality and hyponatremia; E11.42 Type 2 diabetes mellitus with diabetic polyneuropathy; B95.62 Methicillin resistant Staphylococcus aureus infection as the cause of diseases classified elsewhere; I95.89 Other hypotension; Z68.43 Body mass index [BMI] 50.0-59.9, adult; E66.01 Morbid (severe) obesity due to excess calories; Z79.4 Long term (current) use of insulin; D64.9 Anemia, unspecified; E78.5 Hyperlipidemia, unspecified; I10 Essential (primary) hypertension; Z79.85 Long-term (current) use of injectable non-insulin antidiabetic drugs; Z79.899 Other long term (current) drug therapy
CPT/HCPCS: 36415; 71045; 80048; 80053; 80076; 81001; 82962; 83605; 85025; 85027; 85610; 85652; 85730; 86850; 86900; 86901; 86920; 86922; 87040; 87070; 87077; 87086; 87088; 87186; 87205; 87640; 93005; 94660; 94762; 99285; J7030; J7040; P9016; A4216; J2405

== ENCOUNTER → 2022-10-18 | Outpatient (REF) | payer MEDICAID, SELFPAY ==
[2022-10-18 08:02] LABS: Absolute Lymphocyte Count 1.75 X10^3/uL (0.83-4.51); Absolute Neutrophil Count 5.1 X10^3/uL (2.0-7.7); Basophil# 0.06 X10^3/uL; Basophil% 0.7 % (0-1); Eosinophil# 0.37 X10^3/uL; Eosinophils% 4.5 % (0-5); Hemoglobin 7.4 g/dL (13.0-16.5); Lymphocyte # 1.75 X10^3/ul (0.83-4.51); Lymphocyte % 21.1 % (19-41); Mean Corp Hgb Conc 30.8 g/dL (32-36); Mean Corpuscular Hgb 27.5 pg (27.0-32.0); Mean Corpuscular Volume 89.2 fL (80-94); Mean Platelet Vol. 8.6 fl (6.2-12.0); Monocyte# 0.84 X10^3/uL; Monocyte% 10.1 % (0-10); NRBC Flagged by Analyzer 0 % (0-5); Neutrophil # 5.09 X10^3/uL (2.7-7.7); Neutrophil % 61.5 % (47-70); Platelet Count 431 K/mm3 (150-450); RBC Distribution Width CV 16.8 % (11.6-14.6); RBC Distribution Width SD 54.4 fl (35.1-43.9); Red Blood Count 2.69 M/mm3 (4.6-6.2); White Blood Count 8.3 K/mm3 (4.4-11.0)
[2022-10-18 08:14] LABS: ALB/GLOB Ratio 0.6 RATIO (0.9-2.4); AST(SGOT) 15 U/L (15-37); Alanine Aminotransfer ALT/SGPT 25 U/L (16-61); Albumin, Serum 2.6 g/dL (3.2-5.0); Alkaline Phosphatase 116 U/L (45-117); Anion Gap 7 (5-15); BUN 19 mg/dL (7-18); BUN/Creat Ratio 22.4 RATIO (10-20); Calcium,Total 9.3 mg/dL (8.5-10.1); Chloride 107 mmol/L (98-107); Creatinine, Serum 0.85 mg/dL (0.70-1.30); EST Glomerular Filtration Rate 100 mL/min (>60); Est Glom Filt Rate - Afr Amer 121 mL/min (>60); Globulin 4.3 g/dL (2.2-4.2); Glucose 241 mg/dL (74-106); Potassium 3.7 mmol/L (3.5-5.1); Protein, Total 6.9 g/dL (6.4-8.2); Sodium Level 138 mmol/L (136-145)
[2022-10-18 08:15] LABS: Vancomycin, Trough Level 14.5 ug/mL (5.0-15.0)
[2022-10-18 08:34] LABS: Erythrocyte Sedimentation Rate 34 mm/hr (0-20)
== END | disposition home or self-care (01) ==
LOC: OLS.SW 05:00
PROVIDERS: PCP Internal Medicine; Visit Provider Family Medicine
DX: D64.9 Anemia, unspecified (principal); E11.9 Type 2 diabetes mellitus without complications
CPT/HCPCS: 36415; 80053; 80202; 85025; 85652; 86140

== ENCOUNTER 2022-10-21 12:58 | Emergency (ER) | payer MEDICAID, SELFPAY ==
[2022-10-21 13:01] VITALS: PULSE 94; RESP 18; TEMP 37.8; O2SAT 97; BMI 54.8
[2022-10-21 14:02] LABS: Absolute Lymphocyte Count 1.34 X10^3/uL (0.83-4.51); Absolute Neutrophil Count 5.6 X10^3/uL (2.0-7.7); Basophil# 0.06 X10^3/uL; Basophil% 0.8 % (0-1); Eosinophil# 0.19 X10^3/uL; Eosinophils% 2.4 % (0-5); Hematocrit 22.5 % (40-54); Lymphocyte # 1.34 X10^3/ul (0.83-4.51); Lymphocyte % 16.8 % (19-41); Mean Corp Hgb Conc 31.1 g/dL (32-36); Mean Corpuscular Hgb 27.6 pg (27.0-32.0); Mean Corpuscular Volume 88.6 fL (80-94); Mean Platelet Vol. 8.5 fl (6.2-12.0); Monocyte# 0.75 X10^3/uL; Monocyte% 9.4 % (0-10); NRBC Flagged by Analyzer 0 % (0-5); Neutrophil # 5.56 X10^3/uL (2.7-7.7); Neutrophil % 69.7 % (47-70); Platelet Count 336 K/mm3 (150-450); RBC Distribution Width CV 17.1 % (11.6-14.6); Red Blood Count 2.54 M/mm3 (4.6-6.2)
[2022-10-21 14:19] LABS: Anion Gap 7 (5-15); BUN 15 mg/dL (7-18); BUN/Creat Ratio 18.6 RATIO (10-20); Calcium,Total 8.8 mg/dL (8.5-10.1); Chloride 109 mmol/L (98-107); EST Glomerular Filtration Rate 106 mL/min (>60); Est Glom Filt Rate - Afr Amer 128 mL/min (>60); Estimated Creatinine Clearance 112.43 ml/min; Glucose 199 mg/dL (74-106); Potassium 3.7 mmol/L (3.5-5.1); Sodium Level 138 mmol/L (136-145)
--- NOTE | 2022-10-21 14:29 | EDS_ITS ---
HPI History of Present Illness Chief Complaint: General Illness Detail of Chief Complaint: Needs IV antibiotics Narrative Narrative: Patient presents from local ECF needing a dose of an IV antibiotic. Patient was recently admitted to [facility] with a pressure wound to his buttock area. He did require I&D on October 09. Patient has a PICC line in place. He has been receiving vancomycin, Flagyl, and cefiderocol. halfway stated that they did not have the cefiderocol for his 3 PM dose and sent him to the emergency room. We notified the ECF with a called report that we do not have the cefiderocol on formulary at this hospital. I was able to pull up the patient's notes from [facility]. The note specifically says wound cultures this admission grew Pseudomonas resistant to Merrem; susceptible to cefepime. In light of this patient will be given a dose of cefepime here. Patient is noted to have low-grade temperature of 100.1 here. He states he had a low-grade fever at the fpc this morning. [facility] Medical History (Updated 10/21/22 @ 14:[address] Rula Nguyen MD) Acute on chronic anemia Acute respiratory failure, unspecified whether with hypoxia or hypercapnia ION (acute kidney injury) Alcohol abuse Anemia requiring transfusions Anxiety and depression Bacteremia due to Enterococcus Avelar's palsy Biceps tendonitis on left Blister (nonthermal), right foot, initial encounter Chronic hypotension Chronic indwelling Garcia catheter Chronic pain Chronic ulcer of right foot with fat layer exposed CPAP (continuous positive airway pressure) dependence Debility Decubitus ulcer of sacral region, stage 4 Decubitus ulcer, buttock Depression Diabetes DVT (deep venous thrombosis) Edema of both lower extremities Elevated liver transaminase level Essential (primary) hypertension Former smoker Headache Hemoglobin A1c 8.0% or greater History of foot ulcer History of stress test history of tooth removal Hyperlipidemia Hyponatremia Incontinence 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 Infected decubitus ulcer Inflammation of joint of left shoulder region Insomnia Left shoulder pain 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 Long-term insulin use Morbid (severe) obesity due to excess calories Nausea & vomiting Neuromuscular dysfunction of bladder, unspecified Neuropathic pain Non-smoker Noninfective gastroenteritis and colitis Obesities, morbid Obstructive sleep apnea On home oxygen therapy Osteoporosis Other seasonal allergic rhinitis Paraplegia Pressure sore of left ischium, unstageable Pressure ulcer Pressure ulcer of left buttock, unstageable Pressure ulcer of right buttock, unstageable Pressure ulcer of sacral region, unstageable Primary osteoarthritis, left shoulder Sacral ulcer Sacral wound Self-catheterizes urinary bladder Sepsis Skin necrosis Skin ulcer of left hip Skin ulcer of right hip Sleep apnea Stage II pressure ulcer Stage II pressure ulcer of buttock Type 2 diabetes mellitus with diabetic polyneuropathy Wound infection Home Medications lurasidone 60 mg tablet (Latuda) 40 mg PO DINNER depression 04/12/22 [History Last Taken 10/20/22] doxazosin 1 mg tablet 1 mg PO QHS PROSTATE 06/05/22 [History Last Taken 10/20/22] loperamide 2 mg tablet (Anti-Diarrheal (loperamide)) 4 mg PO Q6H PRN loose stool #1 TAB 07/14/22 [Rx Last Taken Unknown] insulin lispro 100 unit/mL subcutaneous pen (Humalog KwikPen (U-100) Insulin) See Rx Instructions .Route .COMPLEX dm 08/15/22 [History Last Taken 10/21/22] furosemide 40 mg tablet 40 mg PO DAILY diuresis 08/18/22 [History Last Taken 10/20/22] atorvastatin 20 mg tablet 40 mg PO QHS cholesterol lowering #90 tabs 08/29/22 [Rx Last Taken 10/20/22] Lactobacillus rhamnosus GG 10 billion cell-inulin 200 mg capsule 1 cap PO DAILY probiotic 09/21/22 [History Last Taken 10/21/22] amlodipine 10 mg tablet 10 mg PO QHS bp 09/21/22 [History Last Taken 10/20/22] ascorbic acid (vitamin C) 500 mg tablet (Vitamin C) 500 mg PO DAILY supplement 09/21/22 [History Last Taken 10/21/22] bisacodyl 10 mg rectal suppository 10 mg MD DAILY PRN Constipation 09/21/22 [History Last Taken Unknown] gabapentin 400 mg capsule 400 mg PO 4X/DAY nerve pain 09/21/22 [History Last Taken 10/21/22] multivitamin,tx-minerals 1 tab PO DAILY supplement 09/21/22 [History Last Taken 10/21/22] psyllium husk 2.6 gram/4.1 gram oral powder 1 tbsp PO DAILY PRN PRN Diarrhea 09/21/22 [History Last Taken Unknown] sodium phosphates 19 gram-7 gram/118 mL enema (Fleet Enema) 1 ml MD DAILY PRN PRN Constipation 09/21/22 [History Last Taken Unknown] insulin regular hum U-500 conc 500 unit/mL(3 mL) subcut pen (Humulin R U-500 (Conc) Insulin Kwikpen) See Rx Instructions .Route .COMPLEX dm 10/05/22 [History Last Taken 10/21/22] nystatin 100,000 unit/gram topical powder (Nyamyc) 1 applic topical BID skin care 10/05/22 [History Last Taken Unknown] sodium hypochlorite 0.25 % solution (Dakin's Solution) 1 applic topical DAILY skin care 10/05/22 [History Last Taken Unknown] acetaminophen 500 mg tablet 1,000 mg PO TID PAIN 10/21/22 [History Last Taken 10/21/22] cefepime 2 gram solution for injection 2 g IV Q12H #14 ea 10/21/22 [Rx Last Taken Unknown] cefiderocol 1 gram intravenous solution 2 g IV Q6H INFECTION 10/21/22 [History Last Taken 10/21/22] metronidazole 500 mg tablet 500 mg PO TID WOUND INFECTION 10/21/22 [History Last Taken 10/21/22] multivit,stress formula-zinc tablet 1 tab PO BID WOUND HEALING 10/21/22 [History Last Taken 10/21/22] oxycodone 5 mg tablet 5 mg PO Q8H PRN MODERATE/SEVERE PAIN 10/21/22 [History Last Taken 10/20/22] pantoprazole 40 mg tablet,delayed release 40 mg PO DAILY GERD 10/21/22 [History Last Taken 10/21/22] sennosides 8.6 mg-docusate sodium 50 mg tablet (Senna Plus) 2 tab PO BID CONSTIPATION 10/21/22 [History Last Taken 10/21/22] vancomycin 1.5 gram/300 mL in diluent combination IV piggyback See Rx Instructions .Route .COMPLEX INFECTION 10/21/22 [History Last Taken 10/21/22] Allergy/AdvReac Type Severity Reaction Status Date / Time metformin AdvReac Unknown Diarrhea Verified 10/21/22 13:00 Family History Father Heart disease Myocardial infarction, Onset Age: 64 Hyperlipemia Mother Heart disease Hypertension Hyperlipemia Uncle Heart disease Grandfather Diabetes Grandmother Diabetes Surgical History History of back surgery Social History Smoking Status: Never smoker alcohol intake: former substance use type: does not use what type of physical activity do you participate in: none ROS ROS ED Constitutional Constitutional ED: Reports fever(s); Denies chills Eyes Eyes: Denies change in vision or discharge from eye(s) ENT ENT ED: Denies discharge from eye(s), rhinorrhea or sore throat Cardiovascular Cardiovascular: Denies chest pain or palpitations Respiratory/Chest Respiratory/Chest: Denies cough or dyspnea Gastrointestinal Gastrointestinal: Denies abdominal pain, diarrhea, nausea or vomiting Genitourinary Genitourinary ED: Reports other Details: Indwelling Garcia catheter Musculoskeletal Musculoskeletal: Denies back pain Neurologic Neurologic: Denies headache(s) Allergic/Immunologic Allergic/Immunologic ED: Denies lip swelling or urticaria EXAM Physical Exam Narrative Exam Narrative: Patient sitting upright in bed no acute distress. Nontoxic-appearing. Const Vital Signs: 10/21/22 13:01 10/21/22 13:16 10/21/22 15:19 Temperature 100.1 F H Temperature Source Temporal Pulse Rate 94 64 Respiratory Rate 18 18 Respiratory Effort Normal Respiratory Pattern Normal Blood Pressure 174/78 H Blood Pressure Mean 110 Pulse Ox 97 99 Oxygen Delivery Method Room Air Room Air 10/21/22 17:00 10/21/22 19:00 10/21/22 21:00 Temperature 99.9 F H 99.8 F H Temperature Source Temporal Temporal Pulse Rate 89 89 78 Respiratory Rate 16 16 Respiratory Effort Respiratory Pattern Blood Pressure 126/76 H 134/78 H Blood Pressure Mean 92 96 Pulse Ox 100 100 Oxygen Delivery Method Room Air Room Air Positive well nourished and well developed General Appearance ED: well developed HEENT Reports moist mucous membranes Chest Wall inspection of chest normal and palpation of chest normal Resp normal respiratory effort and clear to auscultation bilaterally Cardio regular rate and regular rhythm GI normal to inspection, nondistended, normoactive bowel sounds Extremity Extremity Narrative: Chronic paraplegia. Neuro oriented x3 MDM MDM MDM Narrative Medical decision making narrative: Patient states that the fpc has been changing his dressing daily on his buttock decubitus ulcer. He states it was not changed today and he knows that we do not have the [place] solution that they need to change it. I did review the patient's recent admission at [facility]. He did undergo surgical debridement of his wound on October 09. Again, the patient's wound culture grew Pseudomonas but specifically stated it was susceptible to cefepime. In light of this patient is given a dose of cefepime here. Given his low-grade temperature blood work and blood cultures were drawn. I spoke with Dr. Navarro, covering the patient's fpc physician and she is aware of the plan and in agreement. History & Record Review Discussion w/independent historian: Patient Additional record(s) reviewed:: Prior inpatient record and Prior labs Lab Data Labs: Laboratory Results - last 24 hr 10/21/22 10/21/22 13:42 13:42 WBC 8.0 RBC 2.54 L Hgb 7.0 L Hct 22.5 L MCV 88.6 MCH 27.6 MCHC 31.1 L RDW Std Deviation 55.0 H RDW Coeff of Fei 17.1 H Plt Count 336 MPV 8.5 Immature Gran % (Auto) 0.900 Neut % (Auto) 69.7 Lymph % (Auto) 16.[address] [place] % (Auto) 9.4 Eos % (Auto) 2.4 Baso % (Auto) 0.8 Absolute Neuts (auto) 5.6 Absolute Lymphs (auto) 1.34 Nucleated RBC % 0 Sodium 138 Potassium 3.7 Chloride 109 H Carbon Dioxide 22.0 Anion Gap 7 BUN 15 Creatinine 0.80 Estim Creat Clear Calc 112.43 Est GFR (MDRD) Af Amer 128 Est GFR (MDRD) Non-Af 106 BUN/Creatinine Ratio 18.6 Glucose 199 H Calcium 8.8 Treatment and Re-Evaluation :: CBC was normal white count 8.0 with normal differential. Hemoglobin is 7 which is consistent with his prior values. Chemistry studies unremarkable other than a glucose of 199. Patient has been given a dose of cefepime here. halfway physician covering is aware of the plan and in agreement. He will be discharged back to the ECF. Blood cultures have been drawn and if positive patient will be called to return. Addendum: When nursing staff called report back to the ECF, they stated that they were not willing to take him back and that he needed to be transferred for this special antibiotic that they do not have. One of the employees at the [facility] told nursing staff here that the health department called them stating that the patient had a resistant bacteria on his culture and had to have the Cefiderocol. The notes and test results that I can visualize in [facility] clearly state that the Pseudomonas aeruginosa is susceptible to cefepime. To ensure no further addendum's were made that were not reported in [facility], we asked [facility] to fax the culture results to us. They sent us 179 pages of lab results and culture results. The culture was obtained on October 11 and states that the infection is susceptible to cefepime. There are no further addendum's or updates to this. Social work here at the [facility] attempted to contact [facility] [place] where the patient was also being considered for transfer. They are not in on the weekends for transfers and there was no one available to speak with. After Dr. Navarro, on-call for the patient's fpc physician spoke with the [facility] director electrical engineering and myself, it is determined the patient will be sent back to the ECF here locally with cefepime at least through the weekend. If the ECF feels that they cannot provide adequate antibiotic coverage they can arrange transfer to [facility] on Sunday when social work and admissions teams are present. Patient was given evening dose of vancomycin while awaiting paperwork and transfer. Discharge Plan Triage Chief Complaint: General Illness ED Provider: Rula Nguyen Dx/Rx/DC Orders Clinical Impression: Decubitus ulcer Instructions: ED Wound Care Prescriptions: New cefepime 2 gram recon soln 2 g IV Q12H Qty: 14 0RF No Action furosemide 40 mg tablet 40 mg PO DAILY lurasidone [Latuda] 60 mg Tablet 40 mg PO DINNER Rx Instructions: must administer with food (at least 350 calories) doxazosin 1 mg tablet 1 mg PO QHS Rx Instructions: TAKE 1 TABLET BY MOUTH AT BEDTIME FOR BENIGN PROSTATIC HYPERPLASIA loperamide [Anti-Diarrheal (loperamide)] 2 mg tablet 4 mg PO Q6H PRN (Reason: loose stool) Qty: 1 0RF Rx Instructions: prn diarrhea insulin lispro [Humalog KwikPen Insulin] 100 unit/mL insulin pen See Rx Instructions .ROUTE .COMPLEX Rx Instructions: PER SLIDING SCALE: 200-250 = 5 UNITS 251-300 = 8 UNITS 301-350 = 12 UNITS gabapentin 400 mg Capsule 400 mg PO 4X/DAY ascorbic acid (vitamin C) [Vitamin C] 500 mg Tablet 500 mg PO DAILY bisacodyl 10 mg Suppository 10 mg MD DAILY PRN (Reason: Constipation) Fleet Enema 19-7 gram/118 mL Enema 1 ml MD DAILY PRN PRN (Reason: Constipation) Theragran-M Tablet 1 tab PO DAILY psyllium husk 2.6 gram/4.1 gram Powder 1 tbsp PO DAILY PRN PRN (Reason: Diarrhea) Rx Instructions: mix into at least 8 oz of water or juice before administering Lactobac. rhamnosus GG-inulin 10 billion cell -200 mg Capsule 1 cap PO DAILY amlodipine 10 mg tablet 10 mg PO QHS nystatin [Nyamyc] 100,000 unit/gram powder 1 applic topical BID Dakin's Solution 0.25 % solution 1 applic topical DAILY Humulin R U-500 (Conc) Kwikpen 500 unit/mL (3 mL) insulin pen See Rx Instructions .ROUTE .COMPLEX Rx Instructions: 65 UNITS IN THE MORNING, 50 UNITS IN THE AFTERNOON, AND 55 UNITS IN THE EVENING PER MAR sennosides-docusate sodium [Senna Plus] 8.6-50 mg Tablet 2 tab PO BID metronidazole 500 mg Tablet 500 mg PO TID acetaminophen 500 mg Tablet 1,000 mg PO TID pantoprazole 40 mg tablet,delayed release (DR/EC) 40 mg PO DAILY oxycodone 5 mg Tablet 5 mg PO Q8H PRN (Reason: MODERATE/SEVERE PAIN) Stress Tablet W/Zinc Tablet 1 tab PO BID vancomycin-diluent combo no.1 1.5 gram/300 mL piggyback See Rx Instructions .ROUTE .COMPLEX Rx Instructions: 1500 MG INTRAVENOUSLY Q12H FOUR WOUND INFECTION UNTIL 11/26/22 PER MAR cefiderocol 1 gram Recon Soln 2 g IV Q6H atorvastatin 20 mg tablet 40 mg PO QHS Qty: 90 3RF Primary Care Provider: Jimmie Rand Referrals: Jimmie Rand MD [Primary Care Provider] - Activity Restrictions/Additional Instructions: I discussed your case with the fpc doc covering this weekend. She is in agreement with our plan of care. Your report from [facility] specifically stated that your infection is susceptible to cefepime and this antibiotic has been given for you here today. Disposition Disposition: Fdc Facility Discharge Location: [facility] Discharge Date/Time: 10/21/22 21:25
[2022-10-21 15:19] VITALS: BP 174/78; PULSE 64; RESP 18; O2SAT 99
[2022-10-21 17:00] VITALS: BP 126/76; PULSE 89; RESP 16; TEMP 37.7; O2SAT 100
[2022-10-21 19:00] VITALS: BP 134/78; PULSE 89; RESP 16; TEMP 37.7; O2SAT 100
--- NOTE | 2022-10-21 19:14 | ED.RN ---
pt. report called to [facility], they were suprised pt. was coming back to them. D.O.N. of [facility] calls back states that they were told by health department that the atb pt. was on there was the only thing that covered infection. asked [facility] to provide info from health department they stated they could not because they do not have that info. but that [place] reports were wrong. and the pt. needs this certain atb.
--- NOTE | 2022-10-21 19:57 | ED.RN ---
ATTEMPT TO CALL REPORT. NO ANSWER. SENT TO [facility] WHO TOLD ME TO CALL [facility] BACK. SECOND ATTEMPT- NO ANSWER AGAIN. TRANSFERRED TO MUFFLE WORKER AT [facility] UNABLE TO TRANSFER ME TO [address] [place] [address]. TOLD TO CALL BACK IN A COUPLE MINUTES
--- NOTE | 2022-10-21 20:00 | ED.RN ---
ATTEMPT TO CALL REPORT A 3RD TIME. NO ANSWER ONCE AGAIN.
--- NOTE | 2022-10-21 20:37 | ED.RN ---
REPORT CALLED TO SCOTTY AT [facility]
[2022-10-21 21:00] VITALS: PULSE 78
--- NOTE | 2022-10-21 21:24 | CM.ED ---
Social Work Note SW informed by MD Nguyen patient is from [facility] and was informed by [facility] staff patient can not return and is in need of [facility] with [facility] [place]. SW attempted to contact [facility] [place] to discuss referral process but unable to reach intake staff. EDGAR consulted with EDGAR Pate and was informed patient would need precert and [facility] can assist with placement to LTACH. EDGAR updated MD Nguyen who reports [facility] with [facility]c plan as [facility] informed MD the local Health Department contacted them with concerns regarding patient's cultures. MD to continue to evaluate. Plan: return to [facility], [facility] to assist with LTACH placement if deemed necessary Yusra Lerma MSW, [place]
== END 2022-10-21 21:25 ==
PROVIDERS: Emergency Provider Emergency Medicine; PCP Internal Medicine; Visit Provider Emergency Medicine
DX: L89.309 Pressure ulcer of unspecified buttock, unspecified stage (principal); E11.622 Type 2 diabetes mellitus with other skin ulcer; E11.42 Type 2 diabetes mellitus with diabetic polyneuropathy; Z79.4 Long term (current) use of insulin; E78.5 Hyperlipidemia, unspecified; I10 Essential (primary) hypertension; G47.33 Obstructive sleep apnea (adult) (pediatric); Z86.718 Personal history of other venous thrombosis and embolism; Z79.899 Other long term (current) drug therapy; Z99.81 Dependence on supplemental oxygen
CPT/HCPCS: 80048; 85025; 87040; 87077; 87149; 87186; 96365; 96366; 96367; 99284; J7040; A4216

== ENCOUNTER → 2022-10-25 | Outpatient (REF) | payer MEDICAID, SELFPAY ==
[2022-10-25 10:45] LABS: Erythrocyte Sedimentation Rate 55 mm/hr (0-20)
[2022-10-25 13:57] LABS: Absolute Lymphocyte Count 1.95 X10^3/uL (0.83-4.51); Absolute Neutrophil Count 3.3 X10^3/uL (2.0-7.7); Basophil# 0.05 X10^3/uL; Basophil% 0.8 % (0-1); Eosinophil# 0.34 X10^3/uL; Eosinophils% 5.4 % (0-5); Hematocrit 24.8 % (40-54); Hemoglobin 7.3 g/dL (13.0-16.5); Lymphocyte # 1.95 X10^3/ul (0.83-4.51); Lymphocyte % 30.8 % (19-41); Mean Corp Hgb Conc 29.4 g/dL (32-36); Mean Corpuscular Hgb 26.1 pg (27.0-32.0); Mean Corpuscular Volume 88.6 fL (80-94); Monocyte# 0.57 X10^3/uL; NRBC Flagged by Analyzer 0 % (0-5); Neutrophil % 51.9 % (47-70); POSITIVE COUNT YES; RBC Distribution Width SD 54.6 fl (35.1-43.9); White Blood Count 6.3 K/mm3 (4.4-11.0)
[2022-10-25 14:08] LABS: Differential Indicated SCAN CRITERIA MET
[2022-10-25 14:09] LABS: Platelet Estimate ADEQUATE (ADEQ)
[2022-10-25 18:46] LABS: Erythrocyte Sedimentation Rate 60 mm/hr (0-20)
[2022-10-25 18:54] LABS: ALB/GLOB Ratio 0.5 RATIO (0.9-2.4); AST(SGOT) 10 U/L (15-37); Alanine Aminotransfer ALT/SGPT 21 U/L (16-61); Albumin, Serum 2.3 g/dL (3.2-5.0); Alkaline Phosphatase 101 U/L (45-117); Anion Gap 9 (5-15); BUN 13 mg/dL (7-18); BUN/Creat Ratio 18.2 RATIO (10-20); Calcium,Total 8.9 mg/dL (8.5-10.1); Chloride 106 mmol/L (98-107); Creatinine, Serum 0.71 mg/dL (0.70-1.30); EST Glomerular Filtration Rate 122 mL/min (>60); Est Glom Filt Rate - Afr Amer 148 mL/min (>60); Globulin 4.6 g/dL (2.2-4.2); Glucose 105 mg/dL (74-106); Potassium 3.6 mmol/L (3.5-5.1); Protein, Total 6.9 g/dL (6.4-8.2); Sodium Level 139 mmol/L (136-145)
== END | disposition home or self-care (01) ==
LOC: OLS.SW 05:00
PROVIDERS: PCP Internal Medicine; Visit Provider Family Medicine
DX: D64.9 Anemia, unspecified (principal); Z79.899 Other long term (current) drug therapy
CPT/HCPCS: 36415; 80053; 80202; 85025; 85652; 86140

== ENCOUNTER → 2022-11-01 | Outpatient (REF) | payer MEDICAID, SELFPAY ==
[2022-11-01 09:36] LABS: Erythrocyte Sedimentation Rate 78 mm/hr (0-20)
[2022-11-01 09:40] LABS: Absolute Lymphocyte Count 1.68 X10^3/uL (0.83-4.51); Absolute Neutrophil Count 4.3 X10^3/uL (2.0-7.7); Basophil# 0.05 X10^3/uL; Basophil% 0.7 % (0-1); Eosinophil# 0.27 X10^3/uL; Eosinophils% 3.8 % (0-5); Hematocrit 29.4 % (40-54); Hemoglobin 8.8 g/dL (13.0-16.5); Lymphocyte # 1.68 X10^3/ul (0.83-4.51); Lymphocyte % 23.7 % (19-41); Mean Corp Hgb Conc 29.9 g/dL (32-36); Mean Corpuscular Hgb 27.7 pg (27.0-32.0); Mean Corpuscular Volume 92.5 fL (80-94); Mean Platelet Vol. 9.8 fl (6.2-12.0); Monocyte# 0.67 X10^3/uL; Monocyte% 9.5 % (0-10); NRBC Flagged by Analyzer 0 % (0-5); Neutrophil % 60.7 % (47-70); POSITIVE COUNT YES; Platelet Count 342 K/mm3 (150-450); RBC Distribution Width CV 17.7 % (11.6-14.6); RBC Distribution Width SD 60.5 fl (35.1-43.9); Red Blood Count 3.18 M/mm3 (4.6-6.2); White Blood Count 7.1 K/mm3 (4.4-11.0)
[2022-11-01 09:43] LABS: ALB/GLOB Ratio 0.6 RATIO (0.9-2.4); AST(SGOT) 15 U/L (15-37); Alanine Aminotransfer ALT/SGPT 23 U/L (16-61); Albumin, Serum 2.3 g/dL (3.2-5.0); Alkaline Phosphatase 101 U/L (45-117); Anion Gap 9 (5-15); BUN 13 mg/dL (7-18); BUN/Creat Ratio 22.6 RATIO (10-20); Calcium,Total 8.9 mg/dL (8.5-10.1); Chloride 105 mmol/L (98-107); Creatinine, Serum 0.58 mg/dL (0.70-1.30); EST Glomerular Filtration Rate 156 mL/min (>60); Est Glom Filt Rate - Afr Amer 189 mL/min (>60); Globulin 3.8 g/dL (2.2-4.2); Glucose 160 mg/dL (74-106); Potassium 4.2 mmol/L (3.5-5.1); Protein, Total 6.1 g/dL (6.4-8.2); Sodium Level 137 mmol/L (136-145)
[2022-11-01 10:55] LABS: Differential Indicated SCAN CRITERIA MET
== END | disposition home or self-care (01) ==
LOC: OLS.SW 05:00
PROVIDERS: PCP Internal Medicine; Visit Provider Family Medicine
DX: I48.91 Unspecified atrial fibrillation (principal); D64.9 Anemia, unspecified; Z79.899 Other long term (current) drug therapy
CPT/HCPCS: 36415; 80053; 80202; 85025; 85652; 86140

== ENCOUNTER → 2022-11-08 | Outpatient (REF) | payer MEDICAID, SELFPAY ==
[2022-11-08 09:13] LABS: Absolute Lymphocyte Count 1.64 X10^3/uL (0.83-4.51); Absolute Neutrophil Count 3.1 X10^3/uL (2.0-7.7); Basophil# 0.04 X10^3/uL; Basophil% 0.7 % (0-1); Eosinophil# 0.24 X10^3/uL; Eosinophils% 4.3 % (0-5); Hematocrit 25.1 % (40-54); Hemoglobin 7.3 g/dL (13.0-16.5); Lymphocyte # 1.64 X10^3/ul (0.83-4.51); Lymphocyte % 29.5 % (19-41); Mean Corp Hgb Conc 29.1 g/dL (32-36); Mean Corpuscular Hgb 26.4 pg (27.0-32.0); Mean Corpuscular Volume 90.6 fL (80-94); NRBC Flagged by Analyzer 0 % (0-5); Neutrophil # 3.08 X10^3/uL (2.7-7.7); Neutrophil % 55.4 % (47-70); Platelet Count 426 K/mm3 (150-450); RBC Distribution Width CV 16.7 % (11.6-14.6); RBC Distribution Width SD 55.7 fl (35.1-43.9); Red Blood Count 2.77 M/mm3 (4.6-6.2); White Blood Count 5.6 K/mm3 (4.4-11.0)
[2022-11-08 09:24] LABS: Erythrocyte Sedimentation Rate 53 mm/hr (0-20)
[2022-11-08 09:45] LABS: ALB/GLOB Ratio 0.5 RATIO (0.9-2.4); AST(SGOT) 14 U/L (15-37); Alanine Aminotransfer ALT/SGPT 16 U/L (16-61); Alkaline Phosphatase 86 U/L (45-117); Anion Gap 8 (5-15); BUN 9 mg/dL (7-18); Calcium,Total 8.7 mg/dL (8.5-10.1); Chloride 106 mmol/L (98-107); EST Glomerular Filtration Rate 149 mL/min (>60); Est Glom Filt Rate - Afr Amer 180 mL/min (>60); Globulin 4.2 g/dL (2.2-4.2); Glucose 168 mg/dL (74-106); Potassium 3.6 mmol/L (3.5-5.1); Protein, Total 6.2 g/dL (6.4-8.2); Sodium Level 139 mmol/L (136-145); Vancomycin, Trough Level 11.6 ug/mL (5.0-15.0)
== END | disposition home or self-care (01) ==
LOC: OLS.SW 05:00
PROVIDERS: PCP Internal Medicine; Visit Provider Family Medicine
DX: D64.9 Anemia, unspecified (principal); Z79.899 Other long term (current) drug therapy
CPT/HCPCS: 36415; 80053; 80202; 85025; 85652; 86140

== ENCOUNTER → 2022-11-14 | Outpatient (REF) | payer MEDICAID, SELFPAY ==
[2022-11-14 08:01] LABS: Absolute Lymphocyte Count 1.78 X10^3/uL (0.83-4.51); Basophil# 0.06 X10^3/uL; Eosinophil# 0.36 X10^3/uL; Eosinophils% 6.1 % (0-5); Hematocrit 27.5 % (40-54); Hemoglobin 7.9 g/dL (13.0-16.5); Lymphocyte # 1.78 X10^3/ul (0.83-4.51); Lymphocyte % 30.3 % (19-41); Mean Corp Hgb Conc 28.7 g/dL (32-36); Mean Corpuscular Hgb 25.9 pg (27.0-32.0); Mean Corpuscular Volume 90.2 fL (80-94); Mean Platelet Vol. 9.2 fl (6.2-12.0); Monocyte% 8.5 % (0-10); NRBC Flagged by Analyzer 0 % (0-5); Neutrophil # 3.04 X10^3/uL (2.7-7.7); Neutrophil % 51.9 % (47-70); Platelet Count 452 K/mm3 (150-450); RBC Distribution Width CV 17.1 % (11.6-14.6); RBC Distribution Width SD 55.4 fl (35.1-43.9); Red Blood Count 3.05 M/mm3 (4.6-6.2); White Blood Count 5.9 K/mm3 (4.4-11.0)
[2022-11-14 08:13] LABS: ALB/GLOB Ratio 0.5 RATIO (0.9-2.4); AST(SGOT) 14 U/L (15-37); Alanine Aminotransfer ALT/SGPT 15 U/L (16-61); Albumin, Serum 2.2 g/dL (3.2-5.0); Alkaline Phosphatase 93 U/L (45-117); Anion Gap 9 (5-15); BUN 11 mg/dL (7-18); BUN/Creat Ratio 16.6 RATIO (10-20); Calcium,Total 8.8 mg/dL (8.5-10.1); Chloride 105 mmol/L (98-107); Creatinine, Serum 0.66 mg/dL (0.70-1.30); EST Glomerular Filtration Rate 133 mL/min (>60); Est Glom Filt Rate - Afr Amer 161 mL/min (>60); Globulin 4.2 g/dL (2.2-4.2); Glucose 158 mg/dL (74-106); Potassium 3.7 mmol/L (3.5-5.1); Protein, Total 6.4 g/dL (6.4-8.2); Sodium Level 138 mmol/L (136-145)
== END | disposition home or self-care (01) ==
LOC: OLS.SW 05:00
PROVIDERS: PCP Internal Medicine; Visit Provider Family Medicine
DX: D64.9 Anemia, unspecified (principal); Z79.899 Other long term (current) drug therapy
CPT/HCPCS: 36415; 80053; 85025

== ENCOUNTER → 2022-11-15 | Outpatient (REF) | payer MEDICAID, SELFPAY ==
[2022-11-15 07:11] LABS: Vancomycin, Trough Level 16.8 ug/mL (5.0-15.0)
== END | disposition home or self-care (01) ==
LOC: OLS.SW 05:00
PROVIDERS: PCP Internal Medicine; Visit Provider Family Medicine
DX: Z79.899 Other long term (current) drug therapy (principal)
CPT/HCPCS: 80202

== ENCOUNTER → 2022-11-17 | Outpatient (REF) | payer MEDICAID, SELFPAY | END | disposition home or self-care (01) | LOC: OLS.SW 16:00 | PROVIDERS: PCP Internal Medicine; Referring Provider Family Medicine; Visit Provider Family Medicine | DX: R50.9 Fever, unspecified (principal) | CPT/HCPCS: 36415; 87040 ==

== ENCOUNTER → 2022-11-18 | Outpatient (REF) | payer MEDICAID, SELFPAY | END | disposition home or self-care (01) | LOC: OLS.SW 09:10 | PROVIDERS: PCP Internal Medicine; Referring Provider Family Medicine; Visit Provider Family Medicine | DX: S61.502A Unspecified open wound of left wrist, initial encounter (principal) | CPT/HCPCS: 36415; 87040 ==

== ENCOUNTER → 2022-11-22 | Outpatient (REF) | payer MEDICAID, SELFPAY ==
[2022-11-22 09:12] LABS: Absolute Lymphocyte Count 1.71 X10^3/uL (0.83-4.51); Absolute Neutrophil Count 4.6 X10^3/uL (2.0-7.7); Basophil# 0.07 X10^3/uL; Basophil% 0.9 % (0-1); Eosinophil# 0.15 X10^3/uL; Hematocrit 30.2 % (40-54); Hemoglobin 8.9 g/dL (13.0-16.5); Lymphocyte # 1.71 X10^3/ul (0.83-4.51); Lymphocyte % 22.8 % (19-41); Mean Corp Hgb Conc 29.5 g/dL (32-36); Mean Corpuscular Hgb 26.4 pg (27.0-32.0); Mean Corpuscular Volume 89.6 fL (80-94); Mean Platelet Vol. 9.5 fl (6.2-12.0); Monocyte# 0.85 X10^3/uL; Monocyte% 11.3 % (0-10); NRBC Flagged by Analyzer 0 % (0-5); Neutrophil # 4.63 X10^3/uL (2.7-7.7); Neutrophil % 61.8 % (47-70); Platelet Count 499 K/mm3 (150-450); RBC Distribution Width CV 17.2 % (11.6-14.6); RBC Distribution Width SD 55.8 fl (35.1-43.9); Red Blood Count 3.37 M/mm3 (4.6-6.2); White Blood Count 7.5 K/mm3 (4.4-11.0)
[2022-11-22 09:21] LABS: Erythrocyte Sedimentation Rate 62 mm/hr (0-20)
[2022-11-22 09:31] LABS: ALB/GLOB Ratio 0.5 RATIO (0.9-2.4); AST(SGOT) 14 U/L (15-37); Alanine Aminotransfer ALT/SGPT 19 U/L (16-61); Albumin, Serum 2.3 g/dL (3.2-5.0); Alkaline Phosphatase 104 U/L (45-117); Anion Gap 5 (5-15); BUN 12 mg/dL (7-18); BUN/Creat Ratio 17.6 RATIO (10-20); Calcium,Total 9.1 mg/dL (8.5-10.1); Chloride 106 mmol/L (98-107); Creatinine, Serum 0.68 mg/dL (0.70-1.30); EST Glomerular Filtration Rate 129 mL/min (>60); Est Glom Filt Rate - Afr Amer 156 mL/min (>60); Globulin 4.6 g/dL (2.2-4.2); Glucose 226 mg/dL (74-106); Potassium 3.5 mmol/L (3.5-5.1); Protein, Total 6.9 g/dL (6.4-8.2); Sodium Level 137 mmol/L (136-145)
[2022-11-22 09:38] LABS: Vancomycin, Trough Level 16.6 ug/mL (5.0-15.0)
== END | disposition home or self-care (01) ==
LOC: OLS.SW 05:00
PROVIDERS: PCP Internal Medicine; Visit Provider Family Medicine
DX: I48.91 Unspecified atrial fibrillation (principal); E11.9 Type 2 diabetes mellitus without complications; R53.83 Other fatigue; L08.9 Local infection of the skin and subcutaneous tissue, unspecified; R50.9 Fever, unspecified
CPT/HCPCS: 36415; 80053; 80202; 85025; 85652; 86140

== ENCOUNTER → 2022-11-29 | Outpatient (REF) | payer MEDICAID, SELFPAY ==
[2022-11-29 09:46] LABS: Erythrocyte Sedimentation Rate 83 mm/hr (0-20)
[2022-11-29 09:48] LABS: Absolute Lymphocyte Count 1.77 X10^3/uL (0.83-4.51); Absolute Neutrophil Count 5.4 X10^3/uL (2.0-7.7); Basophil# 0.03 X10^3/uL; Basophil% 0.4 % (0-1); Eosinophil# 0.33 X10^3/uL; Eosinophils% 4.1 % (0-5); Hematocrit 29.4 % (40-54); Hemoglobin 8.6 g/dL (13.0-16.5); Lymphocyte # 1.77 X10^3/ul (0.83-4.51); Lymphocyte % 21.7 % (19-41); Mean Corp Hgb Conc 29.3 g/dL (32-36); Mean Corpuscular Hgb 26.1 pg (27.0-32.0); Mean Corpuscular Volume 89.4 fL (80-94); Mean Platelet Vol. 9.8 fl (6.2-12.0); Monocyte% 6.1 % (0-10); NRBC Flagged by Analyzer 0 % (0-5); Neutrophil # 5.44 X10^3/uL (2.7-7.7); Neutrophil % 66.8 % (47-70); Platelet Count 414 K/mm3 (150-450); RBC Distribution Width SD 55.4 fl (35.1-43.9); Red Blood Count 3.29 M/mm3 (4.6-6.2); White Blood Count 8.1 K/mm3 (4.4-11.0)
[2022-11-29 09:55] LABS: Vancomycin, Trough Level 24.5 ug/mL (5.0-15.0)
[2022-11-29 10:01] LABS: ALB/GLOB Ratio 0.5 RATIO (0.9-2.4); AST(SGOT) 35 U/L (15-37); Alanine Aminotransfer ALT/SGPT 35 U/L (16-61); Albumin, Serum 2.3 g/dL (3.2-5.0); Alkaline Phosphatase 97 U/L (45-117); Anion Gap 8 (5-15); BUN 13 mg/dL (7-18); BUN/Creat Ratio 17.5 RATIO (10-20); Chloride 104 mmol/L (98-107); Creatinine, Serum 0.74 mg/dL (0.70-1.30); EST Glomerular Filtration Rate 117 mL/min (>60); Est Glom Filt Rate - Afr Amer 141 mL/min (>60); Globulin 4.5 g/dL (2.2-4.2); Glucose 273 mg/dL (74-106); Potassium 3.7 mmol/L (3.5-5.1); Protein, Total 6.8 g/dL (6.4-8.2); Sodium Level 136 mmol/L (136-145)
== END | disposition home or self-care (01) ==
LOC: OLS.SW 05:00
PROVIDERS: PCP Internal Medicine; Visit Provider Family Medicine
DX: D64.9 Anemia, unspecified (principal); L08.89 Other specified local infections of the skin and subcutaneous tissue; Z79.899 Other long term (current) drug therapy
CPT/HCPCS: 36415; 80053; 80202; 85025; 85652; 86140

== ENCOUNTER → 2022-12-06 | Outpatient (REF) | payer MEDICAID, SELFPAY ==
[2022-12-06 09:27] LABS: Absolute Lymphocyte Count 1.58 X10^3/uL (0.83-4.51); Absolute Neutrophil Count 4.8 X10^3/uL (2.0-7.7); Basophil# 0.06 X10^3/uL; Basophil% 0.8 % (0-1); Eosinophils% 5.3 % (0-5); Hematocrit 28.4 % (40-54); Hemoglobin 8.6 g/dL (13.0-16.5); Lymphocyte # 1.58 X10^3/ul (0.83-4.51); Lymphocyte % 20.9 % (19-41); Mean Corp Hgb Conc 30.3 g/dL (32-36); Mean Corpuscular Hgb 25.9 pg (27.0-32.0); Mean Corpuscular Volume 85.5 fL (80-94); Mean Platelet Vol. 9.7 fl (6.2-12.0); Monocyte# 0.68 X10^3/uL; NRBC Flagged by Analyzer 0.3 % (0-5); Neutrophil # 4.75 X10^3/uL (2.7-7.7); Neutrophil % 62.8 % (47-70); Platelet Count 473 K/mm3 (150-450); RBC Distribution Width CV 16.4 % (11.6-14.6); RBC Distribution Width SD 51.4 fl (35.1-43.9); Red Blood Count 3.32 M/mm3 (4.6-6.2); White Blood Count 7.6 K/mm3 (4.4-11.0)
[2022-12-06 09:34] LABS: Vancomycin, Trough Level 12.7 ug/mL (5.0-15.0)
[2022-12-06 09:49] LABS: ALB/GLOB Ratio 0.5 RATIO (0.9-2.4); AST(SGOT) 32 U/L (15-37); Alanine Aminotransfer ALT/SGPT 55 U/L (16-61); Albumin, Serum 2.3 g/dL (3.2-5.0); Alkaline Phosphatase 114 U/L (45-117); Anion Gap 9 (5-15); BUN 9 mg/dL (7-18); Calcium,Total 9.3 mg/dL (8.5-10.1); Chloride 104 mmol/L (98-107); Creatinine, Serum 0.69 mg/dL (0.70-1.30); EST Glomerular Filtration Rate 127 mL/min (>60); Est Glom Filt Rate - Afr Amer 153 mL/min (>60); Globulin 4.7 g/dL (2.2-4.2); Glucose 223 mg/dL (74-106); Potassium 3.7 mmol/L (3.5-5.1); Sodium Level 136 mmol/L (136-145)
[2022-12-07 00:13] LABS: Erythrocyte Sedimentation Rate 66 mm/hr (0-20)
== END | disposition home or self-care (01) ==
LOC: OLS.SW 05:00
PROVIDERS: PCP Internal Medicine; Visit Provider Family Medicine
DX: L08.89 Other specified local infections of the skin and subcutaneous tissue (principal); D64.9 Anemia, unspecified; Z79.899 Other long term (current) drug therapy
CPT/HCPCS: 36415; 80053; 80202; 85025; 85652; 86140

== ENCOUNTER → 2022-12-13 | Outpatient (REF) | payer MEDICAID, SELFPAY ==
[2022-12-13 11:03] LABS: Absolute Lymphocyte Count 1.74 X10^3/uL (0.83-4.51); Absolute Neutrophil Count 3.7 X10^3/uL (2.0-7.7); Basophil# 0.05 X10^3/uL; Basophil% 0.7 % (0-1); Eosinophil# 0.54 X10^3/uL; Eosinophils% 8.1 % (0-5); Hematocrit 30.2 % (40-54); Hemoglobin 8.8 g/dL (13.0-16.5); Lymphocyte # 1.74 X10^3/ul (0.83-4.51); Lymphocyte % 26.1 % (19-41); Mean Corp Hgb Conc 29.1 g/dL (32-36); Mean Corpuscular Hgb 25.4 pg (27.0-32.0); Mean Platelet Vol. 9.3 fl (6.2-12.0); Monocyte# 0.57 X10^3/uL; Monocyte% 8.5 % (0-10); NRBC Flagged by Analyzer 0 % (0-5); Neutrophil # 3.69 X10^3/uL (2.7-7.7); Neutrophil % 55.4 % (47-70); Platelet Count 421 K/mm3 (150-450); RBC Distribution Width CV 16.3 % (11.6-14.6); RBC Distribution Width SD 51.8 fl (35.1-43.9); Red Blood Count 3.47 M/mm3 (4.6-6.2); White Blood Count 6.7 K/mm3 (4.4-11.0)
[2022-12-13 11:31] LABS: ALB/GLOB Ratio 0.6 RATIO (0.9-2.4); AST(SGOT) 12 U/L (15-37); Alanine Aminotransfer ALT/SGPT 28 U/L (16-61); Albumin, Serum 2.5 g/dL (3.2-5.0); Alkaline Phosphatase 117 U/L (45-117); Anion Gap 5 (5-15); BUN 14 mg/dL (7-18); BUN/Creat Ratio 20.4 RATIO (10-20); Calcium,Total 9.2 mg/dL (8.5-10.1); Chloride 105 mmol/L (98-107); Creatinine, Serum 0.68 mg/dL (0.70-1.30); EST Glomerular Filtration Rate 128 mL/min (>60); Est Glom Filt Rate - Afr Amer 155 mL/min (>60); Globulin 4.5 g/dL (2.2-4.2); Glucose 264 mg/dL (74-106); Potassium 3.8 mmol/L (3.5-5.1); Sodium Level 136 mmol/L (136-145)
[2022-12-13 11:33] LABS: Vitamin D,25 Hydroxy 45.2 ng/mL
== END | disposition home or self-care (01) ==
LOC: OLS.SW 08:15
PROVIDERS: PCP Internal Medicine; Visit Provider Family Medicine
DX: I10 Essential (primary) hypertension (principal); D64.9 Anemia, unspecified; T14.8XXA Other injury of unspecified body region, initial encounter; X58.XXXA Exposure to other specified factors, initial encounter; Z79.2 Long term (current) use of antibiotics
CPT/HCPCS: 36415; 80053; 82306; 85025

== ENCOUNTER → 2022-12-20 | Outpatient (REF) | payer MEDICAID, SELFPAY ==
[2022-12-20 09:20] LABS: Absolute Lymphocyte Count 1.62 X10^3/uL (0.83-4.51); Absolute Neutrophil Count 4.9 X10^3/uL (2.0-7.7); Basophil# 0.06 X10^3/uL; Basophil% 0.8 % (0-1); Eosinophil# 0.49 X10^3/uL; Eosinophils% 6.2 % (0-5); Hematocrit 28.4 % (40-54); Hemoglobin 8.4 g/dL (13.0-16.5); Lymphocyte # 1.62 X10^3/ul (0.83-4.51); Lymphocyte % 20.6 % (19-41); Mean Corp Hgb Conc 29.6 g/dL (32-36); Mean Corpuscular Hgb 25.4 pg (27.0-32.0); Mean Corpuscular Volume 85.8 fL (80-94); Mean Platelet Vol. 9.5 fl (6.2-12.0); Monocyte# 0.71 X10^3/uL; NRBC Flagged by Analyzer 0 % (0-5); Neutrophil # 4.93 X10^3/uL (2.7-7.7); Neutrophil % 62.6 % (47-70); Platelet Count 394 K/mm3 (150-450); RBC Distribution Width CV 16.4 % (11.6-14.6); RBC Distribution Width SD 51.6 fl (35.1-43.9); Red Blood Count 3.31 M/mm3 (4.6-6.2); White Blood Count 7.9 K/mm3 (4.4-11.0)
[2022-12-20 09:57] LABS: ALB/GLOB Ratio 0.5 RATIO (0.9-2.4); AST(SGOT) 31 U/L (15-37); Alanine Aminotransfer ALT/SGPT 46 U/L (16-61); Albumin, Serum 2.3 g/dL (3.2-5.0); Alkaline Phosphatase 142 U/L (45-117); Anion Gap 10 (5-15); BUN 11 mg/dL (7-18); BUN/Creat Ratio 15.1 RATIO (10-20); Calcium,Total 9.1 mg/dL (8.5-10.1); Chloride 101 mmol/L (98-107); Creatinine, Serum 0.73 mg/dL (0.70-1.30); EST Glomerular Filtration Rate 119 mL/min (>60); Est Glom Filt Rate - Afr Amer 144 mL/min (>60); Globulin 4.7 g/dL (2.2-4.2); Glucose 238 mg/dL (74-106); Potassium 3.5 mmol/L (3.5-5.1); Sodium Level 135 mmol/L (136-145)
== END | disposition home or self-care (01) ==
LOC: OLS.SW 05:00
PROVIDERS: PCP Internal Medicine; Visit Provider Family Medicine
DX: I10 Essential (primary) hypertension (principal); D64.9 Anemia, unspecified; R60.0 Localized edema
CPT/HCPCS: 36415; 80053; 85025

== ENCOUNTER → 2022-12-27 | Outpatient (REF) | payer MEDICAID, SELFPAY ==
[2022-12-27 09:25] LABS: Absolute Lymphocyte Count 1.71 X10^3/uL (0.83-4.51); Absolute Neutrophil Count 4.2 X10^3/uL (2.0-7.7); Basophil# 0.06 X10^3/uL; Basophil% 0.8 % (0-1); Eosinophil# 0.43 X10^3/uL; Eosinophils% 6.1 % (0-5); Hematocrit 26.8 % (40-54); Lymphocyte # 1.71 X10^3/ul (0.83-4.51); Lymphocyte % 24.2 % (19-41); Mean Corp Hgb Conc 29.9 g/dL (32-36); Mean Corpuscular Hgb 25.6 pg (27.0-32.0); Mean Corpuscular Volume 85.9 fL (80-94); Mean Platelet Vol. 9.3 fl (6.2-12.0); Monocyte# 0.59 X10^3/uL; Monocyte% 8.3 % (0-10); NRBC Flagged by Analyzer 0 % (0-5); Neutrophil # 4.16 X10^3/uL (2.7-7.7); Neutrophil % 58.8 % (47-70); Platelet Count 410 K/mm3 (150-450); RBC Distribution Width CV 16.4 % (11.6-14.6); RBC Distribution Width SD 51.1 fl (35.1-43.9); Red Blood Count 3.12 M/mm3 (4.6-6.2); White Blood Count 7.1 K/mm3 (4.4-11.0)
[2022-12-27 09:42] LABS: ALB/GLOB Ratio 0.4 RATIO (0.9-2.4); AST(SGOT) 26 U/L (15-37); Alanine Aminotransfer ALT/SGPT 44 U/L (16-61); Albumin, Serum 2.1 g/dL (3.2-5.0); Alkaline Phosphatase 158 U/L (45-117); Anion Gap 5 (5-15); BUN 13 mg/dL (7-18); BUN/Creat Ratio 18.8 RATIO (10-20); Calcium,Total 9.1 mg/dL (8.5-10.1); Chloride 103 mmol/L (98-107); Creatinine, Serum 0.69 mg/dL (0.70-1.30); EST Glomerular Filtration Rate 127 mL/min (>60); Est Glom Filt Rate - Afr Amer 153 mL/min (>60); Globulin 4.7 g/dL (2.2-4.2); Glucose 174 mg/dL (74-106); Potassium 3.5 mmol/L (3.5-5.1); Protein, Total 6.8 g/dL (6.4-8.2); Sodium Level 137 mmol/L (136-145)
== END | disposition home or self-care (01) ==
LOC: OLS.SW 05:00
PROVIDERS: PCP Internal Medicine; Visit Provider Family Medicine
DX: I10 Essential (primary) hypertension (principal); D64.9 Anemia, unspecified; R60.0 Localized edema
CPT/HCPCS: 36415; 80053; 85025

== ENCOUNTER → 2023-01-03 | Outpatient (REF) | payer MEDICAID, SELFPAY ==
[2023-01-03 10:19] LABS: Absolute Neutrophil Count 6.5 X10^3/uL (2.0-7.7); Basophil# 0.05 X10^3/uL; Basophil% 0.5 % (0-1); Eosinophil# 0.36 X10^3/uL; Eosinophils% 3.8 % (0-5); Hematocrit 28.4 % (40-54); Hemoglobin 8.3 g/dL (13.0-16.5); Mean Corp Hgb Conc 29.2 g/dL (32-36); Mean Corpuscular Hgb 25.3 pg (27.0-32.0); Mean Corpuscular Volume 86.6 fL (80-94); Mean Platelet Vol. 9.2 fl (6.2-12.0); Monocyte# 0.66 X10^3/uL; NRBC Flagged by Analyzer 0 % (0-5); Neutrophil # 6.47 X10^3/uL (2.7-7.7); Neutrophil % 68.5 % (47-70); Platelet Count 485 K/mm3 (150-450); RBC Distribution Width CV 16.4 % (11.6-14.6); RBC Distribution Width SD 51.2 fl (35.1-43.9); Red Blood Count 3.28 M/mm3 (4.6-6.2); White Blood Count 9.5 K/mm3 (4.4-11.0)
[2023-01-03 10:35] LABS: ALB/GLOB Ratio 0.5 RATIO (0.9-2.4); AST(SGOT) 37 U/L (15-37); Alanine Aminotransfer ALT/SGPT 51 U/L (16-61); Albumin, Serum 2.4 g/dL (3.2-5.0); Alkaline Phosphatase 158 U/L (45-117); Anion Gap 7 (5-15); BUN 13 mg/dL (7-18); BUN/Creat Ratio 15.9 RATIO (10-20); Chloride 101 mmol/L (98-107); Creatinine, Serum 0.82 mg/dL (0.70-1.30); EST Glomerular Filtration Rate 104 mL/min (>60); Est Glom Filt Rate - Afr Amer 126 mL/min (>60); Globulin 4.8 g/dL (2.2-4.2); Glucose 258 mg/dL (74-106); Potassium 3.5 mmol/L (3.5-5.1); Protein, Total 7.2 g/dL (6.4-8.2); Sodium Level 135 mmol/L (136-145)
== END | disposition home or self-care (01) ==
LOC: OLS.SW 05:00
PROVIDERS: PCP Internal Medicine; Visit Provider Family Medicine
DX: D64.9 Anemia, unspecified (principal)
CPT/HCPCS: 36415; 80053; 85025

== ENCOUNTER → 2023-01-10 | Outpatient (REF) | payer MEDICAID, SELFPAY ==
[2023-01-10 09:07] LABS: Absolute Lymphocyte Count 1.68 X10^3/uL (0.83-4.51); Absolute Neutrophil Count 5.7 X10^3/uL (2.0-7.7); Basophil# 0.06 X10^3/uL; Basophil% 0.7 % (0-1); Eosinophil# 0.27 X10^3/uL; Eosinophils% 3.2 % (0-5); Hematocrit 26.2 % (40-54); Hemoglobin 7.9 g/dL (13.0-16.5); Lymphocyte # 1.68 X10^3/ul (0.83-4.51); Lymphocyte % 19.6 % (19-41); Mean Corp Hgb Conc 30.2 g/dL (32-36); Mean Corpuscular Hgb 25.5 pg (27.0-32.0); Mean Corpuscular Volume 84.5 fL (80-94); Mean Platelet Vol. 9.4 fl (6.2-12.0); Monocyte# 0.75 X10^3/uL; Monocyte% 8.8 % (0-10); NRBC Flagged by Analyzer 0 % (0-5); Neutrophil # 5.66 X10^3/uL (2.7-7.7); Neutrophil % 66.2 % (47-70); Platelet Count 437 K/mm3 (150-450); RBC Distribution Width CV 16.8 % (11.6-14.6); White Blood Count 8.6 K/mm3 (4.4-11.0)
[2023-01-10 09:34] LABS: ALB/GLOB Ratio 0.5 RATIO (0.9-2.4); AST(SGOT) 12 U/L (15-37); Alanine Aminotransfer ALT/SGPT 31 U/L (16-61); Albumin, Serum 2.2 g/dL (3.2-5.0); Alkaline Phosphatase 147 U/L (45-117); Anion Gap 8 (5-15); BUN 14 mg/dL (7-18); BUN/Creat Ratio 18.3 RATIO (10-20); Calcium,Total 9.1 mg/dL (8.5-10.1); Chloride 102 mmol/L (98-107); Creatinine, Serum 0.76 mg/dL (0.70-1.30); EST Glomerular Filtration Rate 113 mL/min (>60); Est Glom Filt Rate - Afr Amer 136 mL/min (>60); Globulin 4.8 g/dL (2.2-4.2); Glucose 195 mg/dL (74-106); Potassium 3.7 mmol/L (3.5-5.1); Sodium Level 138 mmol/L (136-145)
== END | disposition home or self-care (01) ==
LOC: OLS.SW 05:00
PROVIDERS: PCP Internal Medicine; Visit Provider Family Medicine
DX: I10 Essential (primary) hypertension (principal); D64.9 Anemia, unspecified; R60.0 Localized edema
CPT/HCPCS: 36415; 80053; 85025

== ENCOUNTER → 2023-01-17 | Outpatient (REF) | payer MEDICAID, SELFPAY ==
[2023-01-17 09:49] LABS: Absolute Lymphocyte Count 1.82 X10^3/uL (0.83-4.51); Absolute Neutrophil Count 4.6 X10^3/uL (2.0-7.7); Basophil# 0.05 X10^3/uL; Basophil% 0.7 % (0-1); Eosinophil# 0.34 X10^3/uL; Eosinophils% 4.5 % (0-5); Hemoglobin 7.8 g/dL (13.0-16.5); Lymphocyte # 1.82 X10^3/ul (0.83-4.51); Mean Corp Hgb Conc 28.9 g/dL (32-36); Mean Corpuscular Hgb 24.9 pg (27.0-32.0); Mean Corpuscular Volume 86.3 fL (80-94); Mean Platelet Vol. 9.3 fl (6.2-12.0); Monocyte# 0.67 X10^3/uL; Monocyte% 8.9 % (0-10); NRBC Flagged by Analyzer 0 % (0-5); Neutrophil # 4.55 X10^3/uL (2.7-7.7); Neutrophil % 60.1 % (47-70); Platelet Count 477 K/mm3 (150-450); RBC Distribution Width CV 17.2 % (11.6-14.6); RBC Distribution Width SD 53.7 fl (35.1-43.9); Red Blood Count 3.13 M/mm3 (4.6-6.2); White Blood Count 7.6 K/mm3 (4.4-11.0)
[2023-01-17 10:03] LABS: ALB/GLOB Ratio 0.4 RATIO (0.9-2.4); AST(SGOT) 13 U/L (15-37); Alanine Aminotransfer ALT/SGPT 26 U/L (16-61); Albumin, Serum 2.2 g/dL (3.2-5.0); Alkaline Phosphatase 134 U/L (45-117); Anion Gap 6 (5-15); BUN 11 mg/dL (7-18); BUN/Creat Ratio 13.9 RATIO (10-20); Calcium,Total 9.3 mg/dL (8.5-10.1); Chloride 102 mmol/L (98-107); Creatinine, Serum 0.79 mg/dL (0.70-1.30); EST Glomerular Filtration Rate 108 mL/min (>60); Est Glom Filt Rate - Afr Amer 131 mL/min (>60); Globulin 5.2 g/dL (2.2-4.2); Glucose 218 mg/dL (74-106); Protein, Total 7.4 g/dL (6.4-8.2); Sodium Level 135 mmol/L (136-145)
== END | disposition home or self-care (01) ==
LOC: OLS.SW 05:00
PROVIDERS: PCP Internal Medicine; Visit Provider Family Medicine
DX: D64.9 Anemia, unspecified (principal); I10 Essential (primary) hypertension
CPT/HCPCS: 36415; 80053; 85025

== ENCOUNTER → 2023-01-24 | Outpatient (REF) | payer MEDICAID, SELFPAY ==
[2023-01-24 09:47] LABS: Absolute Lymphocyte Count 1.73 X10^3/uL (0.83-4.51); Absolute Neutrophil Count 4.8 X10^3/uL (2.0-7.7); Basophil# 0.06 X10^3/uL; Basophil% 0.8 % (0-1); Eosinophil# 0.37 X10^3/uL; Eosinophils% 4.7 % (0-5); Hematocrit 27.7 % (40-54); Hemoglobin 7.9 g/dL (13.0-16.5); Lymphocyte # 1.73 X10^3/ul (0.83-4.51); Lymphocyte % 22.1 % (19-41); Mean Corp Hgb Conc 28.5 g/dL (32-36); Mean Corpuscular Hgb 24.4 pg (27.0-32.0); Mean Corpuscular Volume 85.5 fL (80-94); Mean Platelet Vol. 9.8 fl (6.2-12.0); Monocyte# 0.69 X10^3/uL; Monocyte% 8.8 % (0-10); NRBC Flagged by Analyzer 0 % (0-5); Neutrophil # 4.82 X10^3/uL (2.7-7.7); Neutrophil % 61.7 % (47-70); Platelet Count 424 K/mm3 (150-450); RBC Distribution Width CV 17.2 % (11.6-14.6); RBC Distribution Width SD 53.3 fl (35.1-43.9); Red Blood Count 3.24 M/mm3 (4.6-6.2); White Blood Count 7.8 K/mm3 (4.4-11.0)
[2023-01-24 10:21] LABS: ALB/GLOB Ratio 0.6 RATIO (0.9-2.4); AST(SGOT) 14 U/L (15-37); Alanine Aminotransfer ALT/SGPT 21 U/L (16-61); Albumin, Serum 2.7 g/dL (3.2-5.0); Alkaline Phosphatase 112 U/L (45-117); Anion Gap 1 (5-15); BUN 11 mg/dL (7-18); BUN/Creat Ratio 12.1 RATIO (10-20); Chloride 101 mmol/L (98-107); Creatinine, Serum 0.91 mg/dL (0.70-1.30); EST Glomerular Filtration Rate 92 mL/min (>60); Est Glom Filt Rate - Afr Amer 111 mL/min (>60); Globulin 4.3 g/dL (2.2-4.2); Glucose 172 mg/dL (74-106); Potassium 3.4 mmol/L (3.5-5.1); Sodium Level 139 mmol/L (136-145)
== END | disposition home or self-care (01) ==
LOC: OLS.SW 05:00
PROVIDERS: PCP Internal Medicine; Visit Provider Family Medicine
DX: I10 Essential (primary) hypertension (principal); D64.9 Anemia, unspecified; R60.0 Localized edema
CPT/HCPCS: 36415; 80053; 85025

== ENCOUNTER → 2023-01-31 | Outpatient (REF) | payer MEDICAID, SELFPAY ==
[2023-01-31 09:21] LABS: Absolute Lymphocyte Count 1.35 X10^3/uL (0.83-4.51); Absolute Neutrophil Count 4.2 X10^3/uL (2.0-7.7); Basophil# 0.03 X10^3/uL; Basophil% 0.5 % (0-1); Eosinophil# 0.34 X10^3/uL; Eosinophils% 5.2 % (0-5); Hematocrit 26.4 % (40-54); Hemoglobin 7.5 g/dL (13.0-16.5); Lymphocyte # 1.35 X10^3/ul (0.83-4.51); Lymphocyte % 20.5 % (19-41); Mean Corp Hgb Conc 28.4 g/dL (32-36); Mean Corpuscular Hgb 24.7 pg (27.0-32.0); Mean Corpuscular Volume 86.8 fL (80-94); Monocyte% 9.1 % (0-10); NRBC Flagged by Analyzer 0 % (0-5); Neutrophil # 4.16 X10^3/uL (2.7-7.7); Neutrophil % 63.2 % (47-70); Platelet Count 446 K/mm3 (150-450); RBC Distribution Width CV 18.1 % (11.6-14.6); RBC Distribution Width SD 56.9 fl (35.1-43.9); Red Blood Count 3.04 M/mm3 (4.6-6.2); White Blood Count 6.6 K/mm3 (4.4-11.0)
[2023-01-31 09:42] LABS: ALB/GLOB Ratio 0.4 RATIO (0.9-2.4); AST(SGOT) 11 U/L (15-37); Alanine Aminotransfer ALT/SGPT 28 U/L (16-61); Albumin, Serum 2.1 g/dL (3.2-5.0); Alkaline Phosphatase 127 U/L (45-117); Anion Gap 6 (5-15); BUN 11 mg/dL (7-18); BUN/Creat Ratio 14.5 RATIO (10-20); Calcium,Total 9.1 mg/dL (8.5-10.1); Chloride 103 mmol/L (98-107); Creatinine, Serum 0.76 mg/dL (0.70-1.30); EST Glomerular Filtration Rate 113 mL/min (>60); Est Glom Filt Rate - Afr Amer 137 mL/min (>60); Glucose 220 mg/dL (74-106); Potassium 3.5 mmol/L (3.5-5.1); Protein, Total 7.1 g/dL (6.4-8.2); Sodium Level 137 mmol/L (136-145)
== END | disposition home or self-care (01) ==
LOC: OLS.SW 05:00
PROVIDERS: PCP Internal Medicine; Visit Provider Family Medicine
DX: D64.9 Anemia, unspecified (principal); I10 Essential (primary) hypertension; R60.0 Localized edema
CPT/HCPCS: 36415; 80053; 85025

== ENCOUNTER → 2023-02-07 | Outpatient (REF) | payer MEDICAID, SELFPAY ==
[2023-02-07 09:31] LABS: Absolute Lymphocyte Count 1.66 X10^3/uL (0.83-4.51); Basophil# 0.05 X10^3/uL; Basophil% 0.6 % (0-1); Eosinophil# 0.41 X10^3/uL; Eosinophils% 5.2 % (0-5); Hematocrit 27.3 % (40-54); Lymphocyte # 1.66 X10^3/ul (0.83-4.51); Mean Corp Hgb Conc 29.3 g/dL (32-36); Mean Corpuscular Hgb 24.9 pg (27.0-32.0); Mean Platelet Vol. 9.2 fl (6.2-12.0); Monocyte# 0.71 X10^3/uL; NRBC Flagged by Analyzer 0 % (0-5); Neutrophil # 5.02 X10^3/uL (2.7-7.7); Neutrophil % 63.3 % (47-70); Platelet Count 478 K/mm3 (150-450); RBC Distribution Width CV 18.2 % (11.6-14.6); RBC Distribution Width SD 55.4 fl (35.1-43.9); Red Blood Count 3.21 M/mm3 (4.6-6.2); White Blood Count 7.9 K/mm3 (4.4-11.0)
[2023-02-07 09:43] LABS: ALB/GLOB Ratio 0.5 RATIO (0.9-2.4); AST(SGOT) 13 U/L (15-37); Alanine Aminotransfer ALT/SGPT 23 U/L (16-61); Albumin, Serum 2.4 g/dL (3.2-5.0); Alkaline Phosphatase 113 U/L (45-117); Anion Gap 8 (5-15); BUN 11 mg/dL (7-18); BUN/Creat Ratio 13.9 RATIO (10-20); Calcium,Total 9.3 mg/dL (8.5-10.1); Chloride 100 mmol/L (98-107); Creatinine, Serum 0.79 mg/dL (0.70-1.30); EST Glomerular Filtration Rate 108 mL/min (>60); Est Glom Filt Rate - Afr Amer 131 mL/min (>60); Globulin 4.9 g/dL (2.2-4.2); Glucose 197 mg/dL (74-106); Potassium 3.6 mmol/L (3.5-5.1); Protein, Total 7.3 g/dL (6.4-8.2); Sodium Level 135 mmol/L (136-145)
== END | disposition home or self-care (01) ==
LOC: OLS.SW 05:00
PROVIDERS: PCP Internal Medicine; Visit Provider Family Medicine
DX: I10 Essential (primary) hypertension (principal); R60.0 Localized edema; D64.9 Anemia, unspecified
CPT/HCPCS: 36415; 80053; 85025

== ENCOUNTER → 2023-02-14 | Outpatient (REF) | payer MEDICAID, SELFPAY ==
[2023-02-14 08:45] LABS: Absolute Lymphocyte Count 1.49 X10^3/uL (0.83-4.51); Absolute Neutrophil Count 5.3 X10^3/uL (2.0-7.7); Basophil# 0.05 X10^3/uL; Basophil% 0.6 % (0-1); Eosinophil# 0.39 X10^3/uL; Eosinophils% 4.9 % (0-5); Hematocrit 27.5 % (40-54); Lymphocyte # 1.49 X10^3/ul (0.83-4.51); Lymphocyte % 18.7 % (19-41); Mean Corp Hgb Conc 29.1 g/dL (32-36); Mean Corpuscular Hgb 24.8 pg (27.0-32.0); Mean Corpuscular Volume 85.4 fL (80-94); Mean Platelet Vol. 9.1 fl (6.2-12.0); Monocyte# 0.66 X10^3/uL; Monocyte% 8.3 % (0-10); NRBC Flagged by Analyzer 0 % (0-5); Neutrophil # 5.29 X10^3/uL (2.7-7.7); Neutrophil % 66.6 % (47-70); Platelet Count 434 K/mm3 (150-450); RBC Distribution Width CV 17.9 % (11.6-14.6); Red Blood Count 3.22 M/mm3 (4.6-6.2)
[2023-02-14 09:06] LABS: ALB/GLOB Ratio 0.5 RATIO (0.9-2.4); AST(SGOT) 13 U/L (15-37); Alanine Aminotransfer ALT/SGPT 23 U/L (16-61); Albumin, Serum 2.4 g/dL (3.2-5.0); Alkaline Phosphatase 117 U/L (45-117); Anion Gap 6 (5-15); BUN 10 mg/dL (7-18); BUN/Creat Ratio 11.1 RATIO (10-20); Chloride 99 mmol/L (98-107); EST Glomerular Filtration Rate 94 mL/min (>60); Est Glom Filt Rate - Afr Amer 113 mL/min (>60); Globulin 4.9 g/dL (2.2-4.2); Glucose 264 mg/dL (74-106); Potassium 3.3 mmol/L (3.5-5.1); Protein, Total 7.3 g/dL (6.4-8.2); Sodium Level 133 mmol/L (136-145)
== END | disposition home or self-care (01) ==
LOC: OLS.SW 05:00
PROVIDERS: PCP Internal Medicine; Visit Provider Family Medicine
DX: D64.9 Anemia, unspecified (principal); I10 Essential (primary) hypertension; R60.0 Localized edema
CPT/HCPCS: 36415; 80053; 85025

== ENCOUNTER → 2023-02-21 | Outpatient (REF) | payer MEDICAID, SELFPAY ==
[2023-02-21 09:25] LABS: Absolute Lymphocyte Count 1.86 X10^3/uL (0.83-4.51); Basophil# 0.06 X10^3/uL; Basophil% 0.7 % (0-1); Eosinophil# 0.53 X10^3/uL; Eosinophils% 6.4 % (0-5); Hematocrit 28.5 % (40-54); Hemoglobin 8.2 g/dL (13.0-16.5); Lymphocyte # 1.86 X10^3/ul (0.83-4.51); Lymphocyte % 22.5 % (19-41); Mean Corp Hgb Conc 28.8 g/dL (32-36); Mean Corpuscular Hgb 24.6 pg (27.0-32.0); Mean Corpuscular Volume 85.3 fL (80-94); Mean Platelet Vol. 9.3 fl (6.2-12.0); Monocyte# 0.71 X10^3/uL; Monocyte% 8.6 % (0-10); NRBC Flagged by Analyzer 0 % (0-5); Neutrophil % 60.7 % (47-70); Platelet Count 423 K/mm3 (150-450); RBC Distribution Width SD 55.8 fl (35.1-43.9); Red Blood Count 3.34 M/mm3 (4.6-6.2); White Blood Count 8.3 K/mm3 (4.4-11.0)
[2023-02-21 10:18] LABS: ALB/GLOB Ratio 0.5 RATIO (0.9-2.4); AST(SGOT) 13 U/L (15-37); Alanine Aminotransfer ALT/SGPT 25 U/L (16-61); Albumin, Serum 2.4 g/dL (3.2-5.0); Alkaline Phosphatase 114 U/L (45-117); Anion Gap 8 (5-15); BUN 15 mg/dL (7-18); Calcium,Total 9.5 mg/dL (8.5-10.1); Chloride 102 mmol/L (98-107); Creatinine, Serum 0.84 mg/dL (0.70-1.30); EST Glomerular Filtration Rate 102 mL/min (>60); Est Glom Filt Rate - Afr Amer 123 mL/min (>60); Globulin 5.2 g/dL (2.2-4.2); Glucose 232 mg/dL (74-106); Protein, Total 7.6 g/dL (6.4-8.2); Sodium Level 136 mmol/L (136-145)
== END | disposition home or self-care (01) ==
LOC: OLS.SW 05:00
PROVIDERS: PCP Internal Medicine; Visit Provider Family Medicine
DX: I10 Essential (primary) hypertension (principal); R60.0 Localized edema; D64.9 Anemia, unspecified
CPT/HCPCS: 36415; 80053; 85025

== ENCOUNTER → 2023-02-28 | Outpatient (REF) | payer MEDICAID, SELFPAY ==
[2023-02-28 09:14] LABS: Absolute Lymphocyte Count 1.71 X10^3/uL (0.83-4.51); Absolute Neutrophil Count 5.8 X10^3/uL (2.0-7.7); Basophil# 0.05 X10^3/uL; Basophil% 0.6 % (0-1); Eosinophil# 0.38 X10^3/uL; Eosinophils% 4.2 % (0-5); Hematocrit 27.5 % (40-54); Hemoglobin 7.9 g/dL (13.0-16.5); Lymphocyte # 1.71 X10^3/ul (0.83-4.51); Lymphocyte % 19.1 % (19-41); Mean Corp Hgb Conc 28.7 g/dL (32-36); Mean Corpuscular Hgb 24.6 pg (27.0-32.0); Mean Corpuscular Volume 85.7 fL (80-94); Mean Platelet Vol. 9.5 fl (6.2-12.0); Monocyte# 0.88 X10^3/uL; Monocyte% 9.8 % (0-10); NRBC Flagged by Analyzer 0 % (0-5); Neutrophil # 5.83 X10^3/uL (2.7-7.7); Neutrophil % 65.2 % (47-70); Platelet Count 452 K/mm3 (150-450); RBC Distribution Width CV 18.1 % (11.6-14.6); RBC Distribution Width SD 56.2 fl (35.1-43.9); Red Blood Count 3.21 M/mm3 (4.6-6.2)
[2023-02-28 09:27] LABS: ALB/GLOB Ratio 0.5 RATIO (0.9-2.4); AST(SGOT) 20 U/L (15-37); Alanine Aminotransfer ALT/SGPT 36 U/L (16-61); Albumin, Serum 2.3 g/dL (3.2-5.0); Alkaline Phosphatase 133 U/L (45-117); Anion Gap 6 (5-15); BUN 12 mg/dL (7-18); BUN/Creat Ratio 15.5 RATIO (10-20); Calcium,Total 9.2 mg/dL (8.5-10.1); Chloride 100 mmol/L (98-107); Creatinine, Serum 0.78 mg/dL (0.70-1.30); EST Glomerular Filtration Rate 111 mL/min (>60); Est Glom Filt Rate - Afr Amer 134 mL/min (>60); Globulin 5.1 g/dL (2.2-4.2); Glucose 232 mg/dL (74-106); Potassium 3.6 mmol/L (3.5-5.1); Protein, Total 7.4 g/dL (6.4-8.2); Sodium Level 134 mmol/L (136-145)
== END | disposition home or self-care (01) ==
LOC: OLS.SW 05:00
PROVIDERS: PCP Internal Medicine; Visit Provider Family Medicine
DX: I10 Essential (primary) hypertension (principal); R60.0 Localized edema; D64.9 Anemia, unspecified
CPT/HCPCS: 36415; 80053; 85025

== ENCOUNTER → 2023-03-07 | Outpatient (REF) | payer MEDICAID, SELFPAY ==
[2023-03-07 08:23] LABS: Mucous, Urine 0 SEEN /hpf (<or=2+); Squamous Epithelial Cells - UA 0 SEEN /hpf (0-5)
[2023-03-07 09:16] LABS: Absolute Lymphocyte Count 1.79 X10^3/uL (0.83-4.51); Absolute Neutrophil Count 5.2 X10^3/uL (2.0-7.7); Basophil# 0.06 X10^3/uL; Basophil% 0.7 % (0-1); Eosinophil# 0.46 X10^3/uL; Eosinophils% 5.4 % (0-5); Hematocrit 26.6 % (40-54); Hemoglobin 7.7 g/dL (13.0-16.5); Lymphocyte # 1.79 X10^3/ul (0.83-4.51); Lymphocyte % 21.1 % (19-41); Mean Corp Hgb Conc 28.9 g/dL (32-36); Mean Corpuscular Hgb 24.6 pg (27.0-32.0); Mean Platelet Vol. 8.9 fl (6.2-12.0); Monocyte# 0.86 X10^3/uL; Monocyte% 10.1 % (0-10); NRBC Flagged by Analyzer 0 % (0-5); Neutrophil # 5.16 X10^3/uL (2.7-7.7); Neutrophil % 60.8 % (47-70); Platelet Count 494 K/mm3 (150-450); RBC Distribution Width CV 18.1 % (11.6-14.6); RBC Distribution Width SD 55.9 fl (35.1-43.9); Red Blood Count 3.13 M/mm3 (4.6-6.2); White Blood Count 8.5 K/mm3 (4.4-11.0)
[2023-03-07 09:30] LABS: ALB/GLOB Ratio 0.4 RATIO (0.9-2.4); AST(SGOT) 12 U/L (15-37); Alanine Aminotransfer ALT/SGPT 29 U/L (16-61); Albumin, Serum 2.1 g/dL (3.2-5.0); Alkaline Phosphatase 132 U/L (45-117); Anion Gap 5 (5-15); BUN 13 mg/dL (7-18); BUN/Creat Ratio 17.5 RATIO (10-20); Chloride 102 mmol/L (98-107); Creatinine, Serum 0.74 mg/dL (0.70-1.30); EST Glomerular Filtration Rate 116 mL/min (>60); Est Glom Filt Rate - Afr Amer 141 mL/min (>60); Globulin 5.1 g/dL (2.2-4.2); Glucose 199 mg/dL (74-106); Potassium 3.9 mmol/L (3.5-5.1); Protein, Total 7.2 g/dL (6.4-8.2); Sodium Level 135 mmol/L (136-145)
[2023-03-07 09:38] LABS: Hemoglobin A1c 7.4 % (3.8-5.6)
[2023-03-07 09:44] LABS: Color, Urine Yellow (Yellow); Glucose, Dipstick Normal (Normal); Ketone-Dipstick Negative (Negative); Leukocyte Esterase-Dipstick 500 /ul (Negative); Nitrite-Dipstick Negative (Negative); Occult Blood-Urine 250 /ul (Negative); Protein-Dipstick 30 mg/dl (Negative); Urine Bilirubin Dipstick Negative (Negative); Urine Clarity Cloudy (Clear); Urine Urobilinogen Normal (Normal); Urine pH 6.5 (5.0 - 8.0)
[2023-03-07 10:39] LABS: Bacteria 1+ /hpf (None Seen); Red Blood Cells-Urine 25-50 SEEN /hpf (0-5); White Blood Cells >100 SEEN /hpf (0-5)
== END | disposition home or self-care (01) ==
LOC: OLS.SW 05:00
PROVIDERS: PCP Internal Medicine; Visit Provider Family Medicine
DX: D64.9 Anemia, unspecified (principal); E11.9 Type 2 diabetes mellitus without complications; R50.9 Fever, unspecified; I10 Essential (primary) hypertension; R60.0 Localized edema; Z79.899 Other long term (current) drug therapy
CPT/HCPCS: 36415; 80053; 81001; 83036; 85025; 87077; 87086; 87088; 87186

== ENCOUNTER → 2023-03-14 | Outpatient (REF) | payer MEDICAID, SELFPAY ==
[2023-03-14 08:15] LABS: Absolute Lymphocyte Count 1.78 X10^3/uL (0.83-4.51); Absolute Neutrophil Count 4.6 X10^3/uL (2.0-7.7); Basophil# 0.05 X10^3/uL; Basophil% 0.6 % (0-1); Eosinophil# 0.51 X10^3/uL; Eosinophils% 6.6 % (0-5); Hematocrit 27.1 % (40-54); Hemoglobin 7.6 g/dL (13.0-16.5); Lymphocyte # 1.78 X10^3/ul (0.83-4.51); Lymphocyte % 23.1 % (19-41); Mean Corpuscular Hgb 23.9 pg (27.0-32.0); Mean Corpuscular Volume 85.2 fL (80-94); Monocyte# 0.63 X10^3/uL; Monocyte% 8.2 % (0-10); NRBC Flagged by Analyzer 0 % (0-5); Neutrophil # 4.57 X10^3/uL (2.7-7.7); Neutrophil % 59.3 % (47-70); Platelet Count 476 K/mm3 (150-450); RBC Distribution Width SD 55.3 fl (35.1-43.9); Red Blood Count 3.18 M/mm3 (4.6-6.2); White Blood Count 7.7 K/mm3 (4.4-11.0)
[2023-03-14 08:30] LABS: ALB/GLOB Ratio 0.4 RATIO (0.9-2.4); AST(SGOT) 11 U/L (15-37); Alanine Aminotransfer ALT/SGPT 24 U/L (16-61); Albumin, Serum 2.3 g/dL (3.2-5.0); Alkaline Phosphatase 124 U/L (45-117); Anion Gap 5 (5-15); BUN 16 mg/dL (7-18); BUN/Creat Ratio 21.1 RATIO (10-20); Calcium,Total 9.2 mg/dL (8.5-10.1); Chloride 102 mmol/L (98-107); Creatinine, Serum 0.76 mg/dL (0.70-1.30); EST Glomerular Filtration Rate 113 mL/min (>60); Est Glom Filt Rate - Afr Amer 137 mL/min (>60); Globulin 5.2 g/dL (2.2-4.2); Glucose 253 mg/dL (74-106); Potassium 3.8 mmol/L (3.5-5.1); Protein, Total 7.5 g/dL (6.4-8.2); Sodium Level 136 mmol/L (136-145)
== END | disposition home or self-care (01) ==
LOC: OLS.SW 06:55
PROVIDERS: PCP Internal Medicine; Visit Provider Family Medicine
DX: D64.9 Anemia, unspecified (principal); E11.9 Type 2 diabetes mellitus without complications; I10 Essential (primary) hypertension
CPT/HCPCS: 36415; 80053; 85025

== ENCOUNTER → 2023-03-21 | Outpatient (REF) | payer MEDICAID, SELFPAY ==
[2023-03-21 09:46] LABS: Absolute Neutrophil Count 7.2 X10^3/uL (2.0-7.7); Basophil# 0.05 X10^3/uL; Basophil% 0.5 % (0-1); Eosinophil# 0.36 X10^3/uL; Eosinophils% 3.4 % (0-5); Hematocrit 28.1 % (40-54); Hemoglobin 8.1 g/dL (13.0-16.5); Lymphocyte % 18.1 % (19-41); Mean Corp Hgb Conc 28.8 g/dL (32-36); Mean Corpuscular Hgb 24.3 pg (27.0-32.0); Mean Corpuscular Volume 84.4 fL (80-94); Mean Platelet Vol. 10.2 fl (6.2-12.0); Monocyte# 0.95 X10^3/uL; NRBC Flagged by Analyzer 0 % (0-5); Neutrophil # 7.17 X10^3/uL (2.7-7.7); Neutrophil % 68.2 % (47-70); POSITIVE COUNT YES; Platelet Count 360 K/mm3 (150-450); RBC Distribution Width CV 18.6 % (11.6-14.6); RBC Distribution Width SD 56.8 fl (35.1-43.9); Red Blood Count 3.33 M/mm3 (4.6-6.2); White Blood Count 10.5 K/mm3 (4.4-11.0)
[2023-03-21 10:01] LABS: ALB/GLOB Ratio 0.5 RATIO (0.9-2.4); AST(SGOT) 15 U/L (15-37); Alanine Aminotransfer ALT/SGPT 22 U/L (16-61); Albumin, Serum 2.4 g/dL (3.2-5.0); Alkaline Phosphatase 119 U/L (45-117); Anion Gap 6 (5-15); BUN 15 mg/dL (7-18); BUN/Creat Ratio 19.7 RATIO (10-20); Calcium,Total 9.2 mg/dL (8.5-10.1); Chloride 101 mmol/L (98-107); Creatinine, Serum 0.76 mg/dL (0.70-1.30); EST Glomerular Filtration Rate 113 mL/min (>60); Est Glom Filt Rate - Afr Amer 137 mL/min (>60); Globulin 5.2 g/dL (2.2-4.2); Glucose 223 mg/dL (74-106); Potassium 3.6 mmol/L (3.5-5.1); Protein, Total 7.6 g/dL (6.4-8.2); Sodium Level 136 mmol/L (136-145)
== END | disposition home or self-care (01) ==
LOC: OLS.SW 08:12
PROVIDERS: PCP Internal Medicine; Visit Provider Family Medicine
DX: D64.9 Anemia, unspecified (principal); I10 Essential (primary) hypertension
CPT/HCPCS: 36415; 80053; 85025

== ENCOUNTER → 2023-03-22 | Outpatient (REF) | payer MEDICAID, SELFPAY ==
[2023-03-22 08:55] LABS: Hematocrit 26.7 % (40-54); Hemoglobin 7.7 g/dL (13.0-16.5); Mean Corp Hgb Conc 28.8 g/dL (32-36); Mean Corpuscular Hgb 24.9 pg (27.0-32.0); Mean Corpuscular Volume 86.4 fL (80-94); Mean Platelet Vol. 9.4 fl (6.2-12.0); Platelet Count 444 K/mm3 (150-450); RBC Distribution Width CV 18.5 % (11.6-14.6); RBC Distribution Width SD 57.9 fl (35.1-43.9); Red Blood Count 3.09 M/mm3 (4.6-6.2); White Blood Count 9.3 K/mm3 (4.4-11.0)
== END | disposition home or self-care (01) ==
LOC: OLS.SW 05:00
PROVIDERS: PCP Internal Medicine; Visit Provider Family Medicine
DX: D64.9 Anemia, unspecified (principal)
CPT/HCPCS: 36415; 85027

== ENCOUNTER → 2023-03-28 | Outpatient (REF) | payer MEDICAID, SELFPAY ==
[2023-03-28 08:29] LABS: Absolute Lymphocyte Count 1.55 X10^3/uL (0.83-4.51); Absolute Neutrophil Count 4.9 X10^3/uL (2.0-7.7); Basophil# 0.06 X10^3/uL; Basophil% 0.8 % (0-1); Eosinophil# 0.56 X10^3/uL; Hematocrit 25.7 % (40-54); Hemoglobin 7.1 g/dL (13.0-16.5); Lymphocyte # 1.55 X10^3/ul (0.83-4.51); Lymphocyte % 19.5 % (19-41); Mean Corp Hgb Conc 27.6 g/dL (32-36); Mean Corpuscular Hgb 23.9 pg (27.0-32.0); Mean Corpuscular Volume 86.5 fL (80-94); Mean Platelet Vol. 9.3 fl (6.2-12.0); Monocyte% 10.1 % (0-10); NRBC Flagged by Analyzer 0 % (0-5); Neutrophil # 4.89 X10^3/uL (2.7-7.7); Neutrophil % 61.3 % (47-70); Platelet Count 439 K/mm3 (150-450); RBC Distribution Width CV 18.2 % (11.6-14.6); RBC Distribution Width SD 57.1 fl (35.1-43.9); Red Blood Count 2.97 M/mm3 (4.6-6.2)
[2023-03-28 08:50] LABS: ALB/GLOB Ratio 0.4 RATIO (0.9-2.4); AST(SGOT) 14 U/L (15-37); Alanine Aminotransfer ALT/SGPT 29 U/L (16-61); Albumin, Serum 2.1 g/dL (3.2-5.0); Alkaline Phosphatase 126 U/L (45-117); Anion Gap 5 (5-15); BUN 14 mg/dL (7-18); BUN/Creat Ratio 17.3 RATIO (10-20); Calcium,Total 8.9 mg/dL (8.5-10.1); Chloride 103 mmol/L (98-107); Creatinine, Serum 0.81 mg/dL (0.70-1.30); EST Glomerular Filtration Rate 105 mL/min (>60); Est Glom Filt Rate - Afr Amer 127 mL/min (>60); Glucose 273 mg/dL (74-106); Potassium 3.7 mmol/L (3.5-5.1); Protein, Total 7.1 g/dL (6.4-8.2); Sodium Level 137 mmol/L (136-145)
== END | disposition home or self-care (01) ==
LOC: OLS.SW 05:00
PROVIDERS: PCP Internal Medicine; Visit Provider Family Medicine
DX: D64.9 Anemia, unspecified (principal); I10 Essential (primary) hypertension; R60.0 Localized edema
CPT/HCPCS: 36415; 80053; 85025

== ENCOUNTER → 2023-04-04 | Outpatient (REF) | payer MEDICAID, SELFPAY ==
[2023-04-04 08:04] LABS: Absolute Lymphocyte Count 1.74 X10^3/uL (0.83-4.51); Absolute Neutrophil Count 6.1 X10^3/uL (2.0-7.7); Basophil# 0.06 X10^3/uL; Basophil% 0.7 % (0-1); Eosinophil# 0.47 X10^3/uL; Eosinophils% 5.1 % (0-5); Hematocrit 27.1 % (40-54); Hemoglobin 7.7 g/dL (13.0-16.5); Lymphocyte # 1.74 X10^3/ul (0.83-4.51); Lymphocyte % 18.9 % (19-41); Mean Corp Hgb Conc 28.4 g/dL (32-36); Mean Corpuscular Hgb 24.7 pg (27.0-32.0); Mean Corpuscular Volume 86.9 fL (80-94); Mean Platelet Vol. 9.4 fl (6.2-12.0); Monocyte# 0.67 X10^3/uL; Monocyte% 7.3 % (0-10); NRBC Flagged by Analyzer 0 % (0-5); Neutrophil # 6.14 X10^3/uL (2.7-7.7); Neutrophil % 66.8 % (47-70); Platelet Count 449 K/mm3 (150-450); RBC Distribution Width CV 18.6 % (11.6-14.6); Red Blood Count 3.12 M/mm3 (4.6-6.2); White Blood Count 9.2 K/mm3 (4.4-11.0)
[2023-04-04 08:15] LABS: ALB/GLOB Ratio 0.5 RATIO (0.9-2.4); AST(SGOT) 9 U/L (15-37); Alanine Aminotransfer ALT/SGPT 23 U/L (16-61); Albumin, Serum 2.4 g/dL (3.2-5.0); Alkaline Phosphatase 123 U/L (45-117); Anion Gap 7 (5-15); BUN 16 mg/dL (7-18); BUN/Creat Ratio 19.8 RATIO (10-20); Calcium,Total 9.1 mg/dL (8.5-10.1); Chloride 102 mmol/L (98-107); Creatinine, Serum 0.81 mg/dL (0.70-1.30); EST Glomerular Filtration Rate 105 mL/min (>60); Est Glom Filt Rate - Afr Amer 128 mL/min (>60); Glucose 205 mg/dL (74-106); Potassium 3.9 mmol/L (3.5-5.1); Protein, Total 7.4 g/dL (6.4-8.2); Sodium Level 138 mmol/L (136-145)
== END | disposition home or self-care (01) ==
LOC: OLS.SW 05:00
PROVIDERS: PCP Internal Medicine; Visit Provider Family Medicine
DX: D64.9 Anemia, unspecified (principal); I10 Essential (primary) hypertension; R60.0 Localized edema
CPT/HCPCS: 36415; 80053; 85025

== ENCOUNTER → 2023-04-11 05:00 | Outpatient (REF) | payer MEDICAID, SELFPAY ==
[2023-04-11 09:33] LABS: Absolute Lymphocyte Count 1.94 X10^3/uL (0.83-4.51); Absolute Neutrophil Count 4.3 X10^3/uL (2.0-7.7); Basophil# 0.06 X10^3/uL; Basophil% 0.8 % (0-1); Eosinophil# 0.48 X10^3/uL; Eosinophils% 6.5 % (0-5); Hematocrit 28.1 % (40-54); Lymphocyte # 1.94 X10^3/ul (0.83-4.51); Lymphocyte % 26.1 % (19-41); Mean Corp Hgb Conc 28.5 g/dL (32-36); Mean Corpuscular Hgb 24.5 pg (27.0-32.0); Mean Corpuscular Volume 86.2 fL (80-94); Mean Platelet Vol. 9.4 fl (6.2-12.0); Monocyte# 0.63 X10^3/uL; Monocyte% 8.5 % (0-10); NRBC Flagged by Analyzer 0 % (0-5); Neutrophil # 4.25 X10^3/uL (2.7-7.7); Neutrophil % 57.2 % (47-70); Platelet Count 444 K/mm3 (150-450); RBC Distribution Width CV 18.6 % (11.6-14.6); RBC Distribution Width SD 58.1 fl (35.1-43.9); Red Blood Count 3.26 M/mm3 (4.6-6.2); White Blood Count 7.4 K/mm3 (4.4-11.0)
[2023-04-11 09:49] LABS: ALB/GLOB Ratio 0.5 RATIO (0.9-2.4); AST(SGOT) 18 U/L (15-37); Alanine Aminotransfer ALT/SGPT 29 U/L (16-61); Albumin, Serum 2.4 g/dL (3.2-5.0); Alkaline Phosphatase 119 U/L (45-117); Anion Gap 6 (5-15); BUN 17 mg/dL (7-18); BUN/Creat Ratio 22.5 RATIO (10-20); Calcium,Total 9.3 mg/dL (8.5-10.1); Chloride 102 mmol/L (98-107); Creatinine, Serum 0.76 mg/dL (0.70-1.30); EST Glomerular Filtration Rate 114 mL/min (>60); Est Glom Filt Rate - Afr Amer 138 mL/min (>60); Globulin 5.2 g/dL (2.2-4.2); Glucose 156 mg/dL (74-106); Potassium 3.8 mmol/L (3.5-5.1); Protein, Total 7.6 g/dL (6.4-8.2); Sodium Level 136 mmol/L (136-145)
== END ==
LOC: OLS.SW 05:00
PROVIDERS: PCP Internal Medicine; Visit Provider Family Medicine
DX: D64.9 Anemia, unspecified (principal); I10 Essential (primary) hypertension
CPT/HCPCS: 36415; 80053; 85025

== ENCOUNTER → 2023-04-19 | Outpatient (REF) | payer MEDICAID, SELFPAY ==
[2023-04-19 09:47] LABS: ALB/GLOB Ratio 0.5 RATIO (0.9-2.4); AST(SGOT) 12 U/L (15-37); Alanine Aminotransfer ALT/SGPT 26 U/L (16-61); Albumin, Serum 2.5 g/dL (3.2-5.0); Alkaline Phosphatase 130 U/L (45-117); Anion Gap 6 (5-15); BUN 16 mg/dL (7-18); BUN/Creat Ratio 19.3 RATIO (10-20); Calcium,Total 9.3 mg/dL (8.5-10.1); Chloride 102 mmol/L (98-107); Creatinine, Serum 0.83 mg/dL (0.70-1.30); EST Glomerular Filtration Rate 103 mL/min (>60); Est Glom Filt Rate - Afr Amer 124 mL/min (>60); Glucose 207 mg/dL (74-106); Potassium 3.9 mmol/L (3.5-5.1); Protein, Total 7.5 g/dL (6.4-8.2); Sodium Level 136 mmol/L (136-145)
[2023-04-19 09:53] LABS: Absolute Lymphocyte Count 1.99 X10^3/uL (0.83-4.51); Basophil# 0.05 X10^3/uL; Basophil% 0.6 % (0-1); Eosinophil# 0.39 X10^3/uL; Eosinophils% 4.9 % (0-5); Hematocrit 29.8 % (40-54); Hemoglobin 8.3 g/dL (13.0-16.5); Lymphocyte # 1.99 X10^3/ul (0.83-4.51); Lymphocyte % 24.9 % (19-41); Mean Corp Hgb Conc 27.9 g/dL (32-36); Mean Corpuscular Hgb 24.2 pg (27.0-32.0); Mean Corpuscular Volume 86.9 fL (80-94); Mean Platelet Vol. 9.7 fl (6.2-12.0); Monocyte# 0.53 X10^3/uL; Monocyte% 6.6 % (0-10); NRBC Flagged by Analyzer 0 % (0-5); Neutrophil # 4.99 X10^3/uL (2.7-7.7); Neutrophil % 62.5 % (47-70); Platelet Count 364 K/mm3 (150-450); RBC Distribution Width CV 18.3 % (11.6-14.6); RBC Distribution Width SD 58.2 fl (35.1-43.9); Red Blood Count 3.43 M/mm3 (4.6-6.2)
== END | disposition home or self-care (01) ==
LOC: OLS.SW 05:00
PROVIDERS: PCP Internal Medicine; Visit Provider Family Medicine
DX: E11.9 Type 2 diabetes mellitus without complications (principal)
CPT/HCPCS: 36415; 80053; 85025

== ENCOUNTER → 2023-04-20 | Outpatient (REF) | payer MEDICAID, SELFPAY ==
[2023-04-20 09:41] LABS: Absolute Lymphocyte Count 1.64 X10^3/uL (0.83-4.51); Absolute Neutrophil Count 4.2 X10^3/uL (2.0-7.7); Basophil# 0.04 X10^3/uL; Basophil% 0.6 % (0-1); Eosinophils% 5.8 % (0-5); Hematocrit 28.1 % (40-54); Hemoglobin 7.9 g/dL (13.0-16.5); Lymphocyte # 1.64 X10^3/ul (0.83-4.51); Lymphocyte % 23.7 % (19-41); Mean Corp Hgb Conc 28.1 g/dL (32-36); Mean Corpuscular Hgb 24.2 pg (27.0-32.0); Mean Corpuscular Volume 85.9 fL (80-94); Mean Platelet Vol. 9.6 fl (6.2-12.0); Monocyte# 0.56 X10^3/uL; Monocyte% 8.1 % (0-10); NRBC Flagged by Analyzer 0 % (0-5); Neutrophil # 4.23 X10^3/uL (2.7-7.7); Neutrophil % 61.1 % (47-70); Platelet Count 374 K/mm3 (150-450); RBC Distribution Width CV 18.2 % (11.6-14.6); RBC Distribution Width SD 57.1 fl (35.1-43.9); Red Blood Count 3.27 M/mm3 (4.6-6.2); White Blood Count 6.9 K/mm3 (4.4-11.0)
[2023-04-20 09:59] LABS: ALB/GLOB Ratio 0.5 RATIO (0.9-2.4); AST(SGOT) 21 U/L (15-37); Alanine Aminotransfer ALT/SGPT 34 U/L (16-61); Albumin, Serum 2.4 g/dL (3.2-5.0); Alkaline Phosphatase 136 U/L (45-117); Anion Gap 7 (5-15); BUN 16 mg/dL (7-18); BUN/Creat Ratio 19.7 RATIO (10-20); Calcium,Total 8.9 mg/dL (8.5-10.1); Chloride 102 mmol/L (98-107); Creatinine, Serum 0.81 mg/dL (0.70-1.30); EST Glomerular Filtration Rate 105 mL/min (>60); Est Glom Filt Rate - Afr Amer 127 mL/min (>60); Globulin 5.1 g/dL (2.2-4.2); Glucose 229 mg/dL (74-106); Protein, Total 7.5 g/dL (6.4-8.2); Sodium Level 136 mmol/L (136-145)
== END | disposition home or self-care (01) ==
LOC: OLS.SW 05:00
PROVIDERS: PCP Internal Medicine; Visit Provider Family Medicine
DX: I10 Essential (primary) hypertension (principal)
CPT/HCPCS: 36415; 80053; 85025

== ENCOUNTER → 2023-04-25 | Outpatient (REF) | payer MEDICAID, SELFPAY ==
[2023-04-25 08:18] LABS: Absolute Lymphocyte Count 1.55 X10^3/uL (0.83-4.51); Absolute Neutrophil Count 4.1 X10^3/uL (2.0-7.7); Basophil# 0.06 X10^3/uL; Basophil% 0.9 % (0-1); Eosinophil# 0.43 X10^3/uL; Eosinophils% 6.3 % (0-5); Hematocrit 29.2 % (40-54); Hemoglobin 8.1 g/dL (13.0-16.5); Lymphocyte # 1.55 X10^3/ul (0.83-4.51); Lymphocyte % 22.9 % (19-41); Mean Corp Hgb Conc 27.7 g/dL (32-36); Mean Corpuscular Hgb 24.1 pg (27.0-32.0); Mean Corpuscular Volume 86.9 fL (80-94); Mean Platelet Vol. 9.1 fl (6.2-12.0); Monocyte# 0.56 X10^3/uL; Monocyte% 8.3 % (0-10); NRBC Flagged by Analyzer 0 % (0-5); Neutrophil # 4.12 X10^3/uL (2.7-7.7); Neutrophil % 60.7 % (47-70); Platelet Count 382 K/mm3 (150-450); RBC Distribution Width CV 18.3 % (11.6-14.6); Red Blood Count 3.36 M/mm3 (4.6-6.2); White Blood Count 6.8 K/mm3 (4.4-11.0)
[2023-04-25 08:32] LABS: ALB/GLOB Ratio 0.5 RATIO (0.9-2.4); AST(SGOT) 15 U/L (15-37); Alanine Aminotransfer ALT/SGPT 24 U/L (16-61); Albumin, Serum 2.5 g/dL (3.2-5.0); Alkaline Phosphatase 128 U/L (45-117); Anion Gap 7 (5-15); BUN 18 mg/dL (7-18); Chloride 101 mmol/L (98-107); Creatinine, Serum 0.82 mg/dL (0.70-1.30); EST Glomerular Filtration Rate 104 mL/min (>60); Est Glom Filt Rate - Afr Amer 126 mL/min (>60); Globulin 4.9 g/dL (2.2-4.2); Glucose 224 mg/dL (74-106); Potassium 3.6 mmol/L (3.5-5.1); Protein, Total 7.4 g/dL (6.4-8.2); Sodium Level 136 mmol/L (136-145)
== END | disposition home or self-care (01) ==
LOC: OLS.SW 05:00
PROVIDERS: PCP Internal Medicine; Visit Provider Family Medicine
DX: D64.9 Anemia, unspecified (principal); E11.9 Type 2 diabetes mellitus without complications; I10 Essential (primary) hypertension
CPT/HCPCS: 36415; 80053; 85025

== ENCOUNTER → 2023-05-02 | Outpatient (REF) | payer MEDICAID, SELFPAY ==
[2023-05-02 10:45] LABS: Absolute Lymphocyte Count 1.49 X10^3/uL (0.83-4.51); Absolute Neutrophil Count 3.9 X10^3/uL (2.0-7.7); Basophil# 0.04 X10^3/uL; Basophil% 0.6 % (0-1); Eosinophil# 0.34 X10^3/uL; Eosinophils% 5.3 % (0-5); Hematocrit 34.8 % (40-54); Hemoglobin 10.2 g/dL (13.0-16.5); Lymphocyte # 1.49 X10^3/ul (0.83-4.51); Mean Corp Hgb Conc 29.3 g/dL (32-36); Mean Corpuscular Hgb 26.5 pg (27.0-32.0); Mean Corpuscular Volume 90.4 fL (80-94); Monocyte# 0.63 X10^3/uL; Monocyte% 9.7 % (0-10); NRBC Flagged by Analyzer 0 % (0-5); Neutrophil # 3.92 X10^3/uL (2.7-7.7); Neutrophil % 60.6 % (47-70); POSITIVE COUNT YES; RBC Distribution Width CV 17.3 % (11.6-14.6); RBC Distribution Width SD 57.3 fl (35.1-43.9); Red Blood Count 3.85 M/mm3 (4.6-6.2); White Blood Count 6.5 K/mm3 (4.4-11.0)
[2023-05-02 11:01] LABS: ALB/GLOB Ratio 0.5 RATIO (0.9-2.4); AST(SGOT) 33 U/L (15-37); Alanine Aminotransfer ALT/SGPT 24 U/L (16-61); Albumin, Serum 2.6 g/dL (3.2-5.0); Alkaline Phosphatase 120 U/L (45-117); Anion Gap 7 (5-15); BUN 16 mg/dL (7-18); BUN/Creat Ratio 20.9 RATIO (10-20); Calcium,Total 9.1 mg/dL (8.5-10.1); Chloride 104 mmol/L (98-107); Creatinine, Serum 0.77 mg/dL (0.70-1.30); EST Glomerular Filtration Rate 112 mL/min (>60); Est Glom Filt Rate - Afr Amer 136 mL/min (>60); Globulin 4.9 g/dL (2.2-4.2); Glucose 196 mg/dL (74-106); Potassium 4.5 mmol/L (3.5-5.1); Protein, Total 7.5 g/dL (6.4-8.2); Sodium Level 136 mmol/L (136-145)
[2023-05-02 11:15] LABS: Differential Comment SCANNED
[2023-05-02 11:16] LABS: Platelet Estimate ADEQUATE (ADEQ)
== END | disposition home or self-care (01) ==
LOC: OLS.SW 05:00
PROVIDERS: PCP Internal Medicine; Visit Provider Family Medicine
DX: D64.9 Anemia, unspecified (principal); I10 Essential (primary) hypertension
CPT/HCPCS: 36415; 80053; 85025

== ENCOUNTER → 2023-05-09 | Outpatient (REF) | payer MEDICAID, SELFPAY ==
[2023-05-09 08:14] LABS: Absolute Lymphocyte Count 1.62 X10^3/uL (0.83-4.51); Absolute Neutrophil Count 4.1 X10^3/uL (2.0-7.7); Basophil# 0.06 X10^3/uL; Basophil% 0.9 % (0-1); Eosinophil# 0.33 X10^3/uL; Eosinophils% 4.8 % (0-5); Hematocrit 30.1 % (40-54); Hemoglobin 8.6 g/dL (13.0-16.5); Lymphocyte # 1.62 X10^3/ul (0.83-4.51); Lymphocyte % 23.7 % (19-41); Mean Corp Hgb Conc 28.6 g/dL (32-36); Mean Corpuscular Hgb 24.5 pg (27.0-32.0); Mean Corpuscular Volume 85.8 fL (80-94); Mean Platelet Vol. 9.5 fl (6.2-12.0); Monocyte# 0.62 X10^3/uL; Monocyte% 9.1 % (0-10); NRBC Flagged by Analyzer 0 % (0-5); Neutrophil # 4.12 X10^3/uL (2.7-7.7); Neutrophil % 60.2 % (47-70); Platelet Count 429 K/mm3 (150-450); RBC Distribution Width CV 18.1 % (11.6-14.6); RBC Distribution Width SD 56.5 fl (35.1-43.9); Red Blood Count 3.51 M/mm3 (4.6-6.2); White Blood Count 6.8 K/mm3 (4.4-11.0)
[2023-05-09 08:23] LABS: ALB/GLOB Ratio 0.5 RATIO (0.9-2.4); AST(SGOT) 13 U/L (15-37); Alanine Aminotransfer ALT/SGPT 26 U/L (16-61); Albumin, Serum 2.6 g/dL (3.2-5.0); Alkaline Phosphatase 124 U/L (45-117); Anion Gap 5 (5-15); BUN 22 mg/dL (7-18); BUN/Creat Ratio 24.4 RATIO (10-20); Calcium,Total 9.1 mg/dL (8.5-10.1); Chloride 102 mmol/L (98-107); EST Glomerular Filtration Rate 93 mL/min (>60); Est Glom Filt Rate - Afr Amer 113 mL/min (>60); Globulin 4.9 g/dL (2.2-4.2); Glucose 185 mg/dL (74-106); Potassium 3.6 mmol/L (3.5-5.1); Protein, Total 7.5 g/dL (6.4-8.2); Sodium Level 135 mmol/L (136-145)
== END | disposition home or self-care (01) ==
LOC: OLS.SW 06:30
PROVIDERS: PCP Internal Medicine; Visit Provider Family Medicine
DX: D64.9 Anemia, unspecified (principal); E11.9 Type 2 diabetes mellitus without complications; I10 Essential (primary) hypertension
CPT/HCPCS: 36415; 80053; 85025

== ENCOUNTER → 2023-05-16 | Outpatient (REF) | payer MEDICAID, SELFPAY ==
[2023-05-16 10:03] LABS: ALB/GLOB Ratio 0.5 RATIO (0.9-2.4); AST(SGOT) 15 U/L (15-37); Alanine Aminotransfer ALT/SGPT 30 U/L (16-61); Albumin, Serum 2.5 g/dL (3.2-5.0); Alkaline Phosphatase 128 U/L (45-117); Anion Gap 5 (5-15); BUN 18 mg/dL (7-18); BUN/Creat Ratio 22.7 RATIO (10-20); Calcium,Total 9.2 mg/dL (8.5-10.1); Chloride 101 mmol/L (98-107); Creatinine, Serum 0.79 mg/dL (0.70-1.30); EST Glomerular Filtration Rate 108 mL/min (>60); Est Glom Filt Rate - Afr Amer 131 mL/min (>60); Glucose 205 mg/dL (74-106); Potassium 3.8 mmol/L (3.5-5.1); Protein, Total 7.5 g/dL (6.4-8.2); Sodium Level 136 mmol/L (136-145)
[2023-05-16 10:11] LABS: Absolute Lymphocyte Count 1.89 X10^3/uL (0.83-4.51); Absolute Neutrophil Count 3.7 X10^3/uL (2.0-7.7); Basophil# 0.06 X10^3/uL; Basophil% 0.9 % (0-1); Eosinophil# 0.43 X10^3/uL; Eosinophils% 6.4 % (0-5); Hematocrit 31.1 % (40-54); Hemoglobin 8.8 g/dL (13.0-16.5); Lymphocyte # 1.89 X10^3/ul (0.83-4.51); Lymphocyte % 28.3 % (19-41); Mean Corp Hgb Conc 28.3 g/dL (32-36); Mean Corpuscular Hgb 24.2 pg (27.0-32.0); Mean Corpuscular Volume 85.4 fL (80-94); Mean Platelet Vol. 9.8 fl (6.2-12.0); Monocyte# 0.54 X10^3/uL; Monocyte% 8.1 % (0-10); NRBC Flagged by Analyzer 0 % (0-5); Neutrophil # 3.68 X10^3/uL (2.7-7.7); Platelet Count 401 K/mm3 (150-450); RBC Distribution Width CV 17.9 % (11.6-14.6); RBC Distribution Width SD 56.1 fl (35.1-43.9); Red Blood Count 3.64 M/mm3 (4.6-6.2); White Blood Count 6.7 K/mm3 (4.4-11.0)
== END | disposition home or self-care (01) ==
LOC: OLS.SW 06:40
PROVIDERS: PCP Internal Medicine; Visit Provider Family Medicine
DX: I10 Essential (primary) hypertension (principal); R60.9 Edema, unspecified; D64.9 Anemia, unspecified
CPT/HCPCS: 36415; 80053; 85025

== ENCOUNTER → 2023-05-23 | Outpatient (REF) | payer MEDICAID, SELFPAY ==
[2023-05-23 09:03] LABS: Absolute Lymphocyte Count 1.58 X10^3/uL (0.83-4.51); Absolute Neutrophil Count 5.1 X10^3/uL (2.0-7.7); Basophil# 0.06 X10^3/uL; Basophil% 0.8 % (0-1); Eosinophil# 0.38 X10^3/uL; Eosinophils% 4.9 % (0-5); Hematocrit 31.4 % (40-54); Hemoglobin 9.2 g/dL (13.0-16.5); Lymphocyte # 1.58 X10^3/ul (0.83-4.51); Lymphocyte % 20.3 % (19-41); Mean Corp Hgb Conc 29.3 g/dL (32-36); Mean Corpuscular Volume 85.3 fL (80-94); Mean Platelet Vol. 9.4 fl (6.2-12.0); Monocyte# 0.58 X10^3/uL; Monocyte% 7.4 % (0-10); NRBC Flagged by Analyzer 0 % (0-5); Neutrophil # 5.12 X10^3/uL (2.7-7.7); Neutrophil % 65.7 % (47-70); Platelet Count 397 K/mm3 (150-450); RBC Distribution Width CV 18.4 % (11.6-14.6); RBC Distribution Width SD 57.1 fl (35.1-43.9); Red Blood Count 3.68 M/mm3 (4.6-6.2); White Blood Count 7.8 K/mm3 (4.4-11.0)
[2023-05-23 09:16] LABS: ALB/GLOB Ratio 0.5 RATIO (0.9-2.4); AST(SGOT) 16 U/L (15-37); Alanine Aminotransfer ALT/SGPT 24 U/L (16-61); Albumin, Serum 2.5 g/dL (3.2-5.0); Alkaline Phosphatase 117 U/L (45-117); Anion Gap 7 (5-15); BUN 18 mg/dL (7-18); BUN/Creat Ratio 21.6 RATIO (10-20); Calcium,Total 9.1 mg/dL (8.5-10.1); Chloride 102 mmol/L (98-107); Creatinine, Serum 0.83 mg/dL (0.70-1.30); EST Glomerular Filtration Rate 102 mL/min (>60); Est Glom Filt Rate - Afr Amer 123 mL/min (>60); Globulin 4.7 g/dL (2.2-4.2); Glucose 220 mg/dL (74-106); Potassium 3.8 mmol/L (3.5-5.1); Protein, Total 7.2 g/dL (6.4-8.2); Sodium Level 136 mmol/L (136-145)
== END | disposition home or self-care (01) ==
LOC: OLS.SW 04:00
PROVIDERS: PCP Internal Medicine; Referring Provider Family Medicine; Visit Provider Family Medicine
DX: D64.9 Anemia, unspecified (principal); I10 Essential (primary) hypertension
CPT/HCPCS: 36415; 80053; 85025

== ENCOUNTER → 2023-05-25 | Outpatient (REF) | payer MEDICAID, SELFPAY ==
[2023-05-25 09:21] LABS: Anion Gap 2 (5-15); BUN 16 mg/dL (7-18); BUN/Creat Ratio 18.6 RATIO (10-20); Chloride 105 mmol/L (98-107); Creatinine, Serum 0.86 mg/dL (0.70-1.30); EST Glomerular Filtration Rate 98 mL/min (>60); Est Glom Filt Rate - Afr Amer 119 mL/min (>60); Glucose 189 mg/dL (74-106); Potassium 3.8 mmol/L (3.5-5.1); Sodium Level 136 mmol/L (136-145)
== END | disposition home or self-care (01) ==
LOC: OLS.SW 05:00
PROVIDERS: PCP Internal Medicine; Visit Provider Family Medicine
DX: E11.41 Type 2 diabetes mellitus with diabetic mononeuropathy (principal); N17.9 Acute kidney failure, unspecified; J96.00 Acute respiratory failure, unspecified whether with hypoxia or hypercapnia; I10 Essential (primary) hypertension; E78.5 Hyperlipidemia, unspecified
CPT/HCPCS: 36415; 80048

== ENCOUNTER → 2023-05-30 | Outpatient (REF) | payer MEDICAID, SELFPAY ==
[2023-05-30 09:45] LABS: Absolute Lymphocyte Count 1.59 X10^3/uL (0.83-4.51); Absolute Neutrophil Count 4.9 X10^3/uL (2.0-7.7); Basophil# 0.05 X10^3/uL; Basophil% 0.7 % (0-1); Eosinophil# 0.47 X10^3/uL; Eosinophils% 6.2 % (0-5); Hematocrit 31.4 % (40-54); Hemoglobin 9.1 g/dL (13.0-16.5); Lymphocyte # 1.59 X10^3/ul (0.83-4.51); Mean Corpuscular Hgb 24.8 pg (27.0-32.0); Mean Corpuscular Volume 85.6 fL (80-94); Mean Platelet Vol. 9.4 fl (6.2-12.0); Monocyte# 0.56 X10^3/uL; Monocyte% 7.4 % (0-10); NRBC Flagged by Analyzer 0 % (0-5); Neutrophil # 4.85 X10^3/uL (2.7-7.7); Neutrophil % 63.9 % (47-70); Platelet Count 394 K/mm3 (150-450); RBC Distribution Width SD 56.2 fl (35.1-43.9); Red Blood Count 3.67 M/mm3 (4.6-6.2); White Blood Count 7.6 K/mm3 (4.4-11.0)
[2023-05-30 09:57] LABS: ALB/GLOB Ratio 0.5 RATIO (0.9-2.4); AST(SGOT) 15 U/L (15-37); Alanine Aminotransfer ALT/SGPT 25 U/L (16-61); Albumin, Serum 2.6 g/dL (3.2-5.0); Alkaline Phosphatase 125 U/L (45-117); Anion Gap 5 (5-15); BUN 15 mg/dL (7-18); BUN/Creat Ratio 18.3 RATIO (10-20); Calcium,Total 9.4 mg/dL (8.5-10.1); Chloride 103 mmol/L (98-107); Creatinine, Serum 0.82 mg/dL (0.70-1.30); EST Glomerular Filtration Rate 104 mL/min (>60); Est Glom Filt Rate - Afr Amer 125 mL/min (>60); Globulin 4.8 g/dL (2.2-4.2); Glucose 218 mg/dL (74-106); Potassium 3.8 mmol/L (3.5-5.1); Protein, Total 7.4 g/dL (6.4-8.2); Sodium Level 136 mmol/L (136-145)
== END | disposition home or self-care (01) ==
LOC: OLS.SW 07:30
PROVIDERS: PCP Internal Medicine; Visit Provider Family Medicine
DX: D64.9 Anemia, unspecified (principal); I10 Essential (primary) hypertension; R31.9 Hematuria, unspecified; R53.83 Other fatigue
CPT/HCPCS: 36415; 80053; 85025

== ENCOUNTER → 2023-05-30 | Outpatient (REF) | payer MEDICAID, SELFPAY ==
[2023-05-31 08:12] LABS: Mucous, Urine 0 SEEN /hpf (<or=2+); Squamous Epithelial Cells - UA 0 SEEN /hpf (0-5)
[2023-05-31 08:25] LABS: Color, Urine Yellow (Yellow); Glucose, Dipstick Normal (Normal); Ketone-Dipstick Negative (Negative); Leukocyte Esterase-Dipstick 100 /ul (Negative); Nitrite-Dipstick Positive (Negative); Occult Blood-Urine 250 /ul (Negative); Protein-Dipstick 30 mg/dl (Negative); Urine Bilirubin Dipstick Negative (Negative); Urine Clarity Sl. Cloudy (Clear); Urine Urobilinogen Normal (Normal)
[2023-05-31 08:33] LABS: Bacteria 2+ /hpf (None Seen); Red Blood Cells-Urine 5-10 SEEN /hpf (0-5); White Blood Cells 5-10 SEEN /hpf (0-5)
== END | disposition home or self-care (01) ==
LOC: OLS.SW 13:00
PROVIDERS: PCP Internal Medicine; Referring Provider Family Medicine; Visit Provider Family Medicine
DX: R31.9 Hematuria, unspecified (principal); R53.83 Other fatigue
CPT/HCPCS: 36415; 80053; 81001; 85025; 87077; 87086; 87088; 87186

== ENCOUNTER → 2023-06-06 | Outpatient (REF) | payer MEDICAID, SELFPAY ==
[2023-06-06 06:50] LABS: Absolute Lymphocyte Count 1.93 X10^3/uL (0.83-4.51); Basophil# 0.07 X10^3/uL; Basophil% 0.7 % (0-1); Eosinophils% 5.3 % (0-5); Hematocrit 31.8 % (40-54); Hemoglobin 9.3 g/dL (13.0-16.5); Lymphocyte # 1.93 X10^3/ul (0.83-4.51); Lymphocyte % 20.6 % (19-41); Mean Corp Hgb Conc 29.2 g/dL (32-36); Mean Corpuscular Volume 85.5 fL (80-94); Mean Platelet Vol. 9.6 fl (6.2-12.0); Monocyte# 0.83 X10^3/uL; Monocyte% 8.9 % (0-10); NRBC Flagged by Analyzer 0 % (0-5); Neutrophil # 5.96 X10^3/uL (2.7-7.7); Neutrophil % 63.6 % (47-70); Platelet Count 352 K/mm3 (150-450); RBC Distribution Width SD 55.8 fl (35.1-43.9); Red Blood Count 3.72 M/mm3 (4.6-6.2); White Blood Count 9.4 K/mm3 (4.4-11.0)
[2023-06-06 07:14] LABS: ALB/GLOB Ratio 0.6 RATIO (0.9-2.4); AST(SGOT) 12 U/L (15-37); Alanine Aminotransfer ALT/SGPT 22 U/L (16-61); Albumin, Serum 2.7 g/dL (3.2-5.0); Alkaline Phosphatase 111 U/L (45-117); Anion Gap 3 (5-15); BUN 15 mg/dL (7-18); BUN/Creat Ratio 17.9 RATIO (10-20); Calcium,Total 8.8 mg/dL (8.5-10.1); Chloride 102 mmol/L (98-107); Creatinine, Serum 0.84 mg/dL (0.70-1.30); EST Glomerular Filtration Rate 101 mL/min (>60); Est Glom Filt Rate - Afr Amer 122 mL/min (>60); Globulin 4.4 g/dL (2.2-4.2); Glucose 219 mg/dL (74-106); Potassium 3.5 mmol/L (3.5-5.1); Protein, Total 7.1 g/dL (6.4-8.2); Sodium Level 135 mmol/L (136-145)
== END | disposition home or self-care (01) ==
LOC: OLS.SW 05:08
PROVIDERS: PCP Internal Medicine; Visit Provider Family Medicine
DX: D64.9 Anemia, unspecified (principal); I10 Essential (primary) hypertension
CPT/HCPCS: 36415; 80053; 85025

== ENCOUNTER → 2023-06-10 | Outpatient (REF) | payer MEDICAID, SELFPAY | END | disposition home or self-care (01) | LOC: OLS.SW 11:30 | PROVIDERS: PCP Internal Medicine; Visit Provider Family Medicine | DX: S31.809A Unspecified open wound of unspecified buttock, initial encounter (principal) | CPT/HCPCS: 87070; 87075; 87077; 87186; 87205 ==

== ENCOUNTER → 2023-06-13 | Outpatient (REF) | payer MEDICAID, SELFPAY ==
[2023-06-13 09:00] LABS: ALB/GLOB Ratio 0.5 RATIO (0.9-2.4); AST(SGOT) 24 U/L (15-37); Alanine Aminotransfer ALT/SGPT 23 U/L (16-61); Albumin, Serum 2.5 g/dL (3.2-5.0); Alkaline Phosphatase 110 U/L (45-117); Anion Gap 4 (5-15); BUN 15 mg/dL (7-18); BUN/Creat Ratio 17.9 RATIO (10-20); Calcium,Total 9.1 mg/dL (8.5-10.1); Chloride 103 mmol/L (98-107); Creatinine, Serum 0.84 mg/dL (0.70-1.30); EST Glomerular Filtration Rate 101 mL/min (>60); Est Glom Filt Rate - Afr Amer 122 mL/min (>60); Globulin 4.6 g/dL (2.2-4.2); Glucose 177 mg/dL (74-106); Protein, Total 7.1 g/dL (6.4-8.2); Sodium Level 136 mmol/L (136-145)
[2023-06-13 09:06] LABS: Absolute Lymphocyte Count 1.94 X10^3/uL (0.83-4.51); Absolute Neutrophil Count 4.5 X10^3/uL (2.0-7.7); Basophil# 0.06 X10^3/uL; Basophil% 0.8 % (0-1); Eosinophil# 0.57 X10^3/uL; Eosinophils% 7.3 % (0-5); Hematocrit 33.4 % (40-54); Hemoglobin 9.5 g/dL (13.0-16.5); Lymphocyte # 1.94 X10^3/ul (0.83-4.51); Lymphocyte % 24.9 % (19-41); Mean Corp Hgb Conc 28.4 g/dL (32-36); Mean Corpuscular Hgb 24.5 pg (27.0-32.0); Mean Corpuscular Volume 86.1 fL (80-94); Mean Platelet Vol. 10.4 fl (6.2-12.0); Monocyte# 0.67 X10^3/uL; Monocyte% 8.6 % (0-10); NRBC Flagged by Analyzer 0 % (0-5); Neutrophil # 4.49 X10^3/uL (2.7-7.7); Neutrophil % 57.5 % (47-70); POSITIVE COUNT YES; RBC Distribution Width CV 17.9 % (11.6-14.6); RBC Distribution Width SD 56.5 fl (35.1-43.9); Red Blood Count 3.88 M/mm3 (4.6-6.2); White Blood Count 7.8 K/mm3 (4.4-11.0)
[2023-06-13 10:30] LABS: Differential Indicated SCAN CRITERIA MET
[2023-06-13 10:34] LABS: Platelet Estimate ADEQUATE (ADEQ)
== END | disposition home or self-care (01) ==
LOC: OLS.SW 05:00
PROVIDERS: PCP Internal Medicine; Visit Provider Family Medicine
DX: D64.9 Anemia, unspecified (principal); I10 Essential (primary) hypertension
CPT/HCPCS: 36415; 80053; 85025

== ENCOUNTER → 2023-06-20 | Outpatient (REF) | payer MEDICAID, SELFPAY ==
[2023-06-20 10:00] LABS: Absolute Lymphocyte Count 1.83 X10^3/uL (0.83-4.51); Absolute Neutrophil Count 4.3 X10^3/uL (2.0-7.7); Basophil# 0.05 X10^3/uL; Basophil% 0.7 % (0-1); Eosinophil# 0.55 X10^3/uL; Eosinophils% 7.5 % (0-5); Hematocrit 31.2 % (40-54); Hemoglobin 9.3 g/dL (13.0-16.5); Lymphocyte # 1.83 X10^3/ul (0.83-4.51); Mean Corp Hgb Conc 29.8 g/dL (32-36); Mean Corpuscular Hgb 25.5 pg (27.0-32.0); Mean Corpuscular Volume 85.5 fL (80-94); Mean Platelet Vol. 9.5 fl (6.2-12.0); Monocyte# 0.51 X10^3/uL; NRBC Flagged by Analyzer 0 % (0-5); Neutrophil # 4.32 X10^3/uL (2.7-7.7); Platelet Count 359 K/mm3 (150-450); RBC Distribution Width CV 17.6 % (11.6-14.6); RBC Distribution Width SD 55.5 fl (35.1-43.9); Red Blood Count 3.65 M/mm3 (4.6-6.2); White Blood Count 7.3 K/mm3 (4.4-11.0)
[2023-06-20 10:34] LABS: ALB/GLOB Ratio 0.6 RATIO (0.9-2.4); AST(SGOT) 14 U/L (15-37); Alanine Aminotransfer ALT/SGPT 22 U/L (16-61); Albumin, Serum 2.6 g/dL (3.2-5.0); Alkaline Phosphatase 112 U/L (45-117); Anion Gap 4 (5-15); BUN 16 mg/dL (7-18); BUN/Creat Ratio 20.3 RATIO (10-20); Calcium,Total 9.5 mg/dL (8.5-10.1); Chloride 105 mmol/L (98-107); Creatinine, Serum 0.79 mg/dL (0.70-1.30); EST Glomerular Filtration Rate 109 mL/min (>60); Est Glom Filt Rate - Afr Amer 131 mL/min (>60); Globulin 4.4 g/dL (2.2-4.2); Glucose 167 mg/dL (74-106); Potassium 3.5 mmol/L (3.5-5.1); Sodium Level 138 mmol/L (136-145)
== END | disposition home or self-care (01) ==
LOC: OLS.SW 05:00
PROVIDERS: PCP Internal Medicine; Visit Provider Family Medicine
DX: D64.9 Anemia, unspecified (principal); I10 Essential (primary) hypertension
CPT/HCPCS: 36415; 80053; 85025

== ENCOUNTER → 2023-06-27 | Outpatient (REF) | payer MEDICAID, SELFPAY ==
[2023-06-27 08:16] LABS: Absolute Lymphocyte Count 1.88 X10^3/uL (0.83-4.51); Basophil# 0.07 X10^3/uL; Basophil% 0.9 % (0-1); Eosinophil# 0.49 X10^3/uL; Eosinophils% 6.1 % (0-5); Hematocrit 31.7 % (40-54); Hemoglobin 9.7 g/dL (13.0-16.5); Lymphocyte # 1.88 X10^3/ul (0.83-4.51); Lymphocyte % 23.3 % (19-41); Mean Corp Hgb Conc 30.6 g/dL (32-36); Mean Corpuscular Hgb 25.5 pg (27.0-32.0); Mean Corpuscular Volume 83.2 fL (80-94); Mean Platelet Vol. 9.6 fl (6.2-12.0); Monocyte# 0.62 X10^3/uL; Monocyte% 7.7 % (0-10); NRBC Flagged by Analyzer 0 % (0-5); Neutrophil # 4.98 X10^3/uL (2.7-7.7); Neutrophil % 61.5 % (47-70); Platelet Count 340 K/mm3 (150-450); RBC Distribution Width CV 17.5 % (11.6-14.6); RBC Distribution Width SD 53.1 fl (35.1-43.9); Red Blood Count 3.81 M/mm3 (4.6-6.2); White Blood Count 8.1 K/mm3 (4.4-11.0)
[2023-06-27 08:54] LABS: ALB/GLOB Ratio 0.6 RATIO (0.9-2.4); AST(SGOT) 17 U/L (15-37); Alanine Aminotransfer ALT/SGPT 22 U/L (16-61); Albumin, Serum 2.7 g/dL (3.2-5.0); Alkaline Phosphatase 109 U/L (45-117); Anion Gap 7 (5-15); BUN 14 mg/dL (7-18); BUN/Creat Ratio 17.9 RATIO (10-20); Calcium,Total 9.4 mg/dL (8.5-10.1); Chloride 105 mmol/L (98-107); Creatinine, Serum 0.78 mg/dL (0.70-1.30); EST Glomerular Filtration Rate 110 mL/min (>60); Est Glom Filt Rate - Afr Amer 133 mL/min (>60); Globulin 4.6 g/dL (2.2-4.2); Glucose 189 mg/dL (74-106); Potassium 3.6 mmol/L (3.5-5.1); Protein, Total 7.3 g/dL (6.4-8.2); Sodium Level 138 mmol/L (136-145)
== END | disposition home or self-care (01) ==
LOC: OLS.SW 05:00
PROVIDERS: PCP Internal Medicine; Visit Provider Family Medicine
DX: D64.9 Anemia, unspecified (principal); I10 Essential (primary) hypertension
CPT/HCPCS: 36415; 80053; 85025

== ENCOUNTER → 2023-07-18 | Outpatient (REF) | payer MEDICAID, SELFPAY ==
[2023-07-18 07:55] LABS: Absolute Lymphocyte Count 1.99 X10^3/uL (0.83-4.51); Absolute Neutrophil Count 3.5 X10^3/uL (2.0-7.7); Basophil# 0.08 X10^3/uL; Basophil% 1.2 % (0-1); Eosinophil# 0.49 X10^3/uL; Eosinophils% 7.4 % (0-5); Hematocrit 33.8 % (40-54); Hemoglobin 9.9 g/dL (13.0-16.5); Lymphocyte # 1.99 X10^3/ul (0.83-4.51); Lymphocyte % 30.1 % (19-41); Mean Corp Hgb Conc 29.3 g/dL (32-36); Mean Corpuscular Volume 85.4 fL (80-94); Mean Platelet Vol. 9.2 fl (6.2-12.0); Monocyte% 7.6 % (0-10); NRBC Flagged by Analyzer 0 % (0-5); Neutrophil % 52.9 % (47-70); Platelet Count 342 K/mm3 (150-450); RBC Distribution Width CV 16.9 % (11.6-14.6); RBC Distribution Width SD 52.8 fl (35.1-43.9); Red Blood Count 3.96 M/mm3 (4.6-6.2); White Blood Count 6.6 K/mm3 (4.4-11.0)
[2023-07-18 08:14] LABS: ALB/GLOB Ratio 0.6 RATIO (0.9-2.4); AST(SGOT) 19 U/L (15-37); Alanine Aminotransfer ALT/SGPT 30 U/L (16-61); Albumin, Serum 2.8 g/dL (3.2-5.0); Alkaline Phosphatase 112 U/L (45-117); Anion Gap 5 (5-15); BUN 15 mg/dL (7-18); BUN/Creat Ratio 19.6 RATIO (10-20); Calcium,Total 9.4 mg/dL (8.5-10.1); Chloride 106 mmol/L (98-107); Creatinine, Serum 0.76 mg/dL (0.70-1.30); EST Glomerular Filtration Rate 112 mL/min (>60); Est Glom Filt Rate - Afr Amer 136 mL/min (>60); Globulin 4.7 g/dL (2.2-4.2); Glucose 186 mg/dL (74-106); Potassium 3.5 mmol/L (3.5-5.1); Protein, Total 7.5 g/dL (6.4-8.2); Sodium Level 139 mmol/L (136-145)
== END | disposition home or self-care (01) ==
LOC: OLS.SW 05:00
PROVIDERS: PCP Internal Medicine; Visit Provider Family Medicine
DX: D64.9 Anemia, unspecified (principal); E11.9 Type 2 diabetes mellitus without complications; I10 Essential (primary) hypertension
CPT/HCPCS: 36415; 80053; 85025

== ENCOUNTER → 2023-08-08 05:00 | Outpatient (REF) | payer MEDICAID, SELFPAY ==
[2023-08-08 08:37] LABS: Absolute Lymphocyte Count 2.03 X10^3/uL (0.83-4.51); Basophil# 0.04 X10^3/uL; Basophil% 0.6 % (0-1); Eosinophil# 0.34 X10^3/uL; Eosinophils% 4.8 % (0-5); Hematocrit 33.2 % (40-54); Lymphocyte # 2.03 X10^3/ul (0.83-4.51); Lymphocyte % 28.7 % (19-41); Mean Corp Hgb Conc 30.1 g/dL (32-36); Mean Corpuscular Hgb 25.4 pg (27.0-32.0); Mean Corpuscular Volume 84.5 fL (80-94); Mean Platelet Vol. 9.7 fl (6.2-12.0); Monocyte# 0.61 X10^3/uL; Monocyte% 8.6 % (0-10); NRBC Flagged by Analyzer 0 % (0-5); Neutrophil # 4.01 X10^3/uL (2.7-7.7); Neutrophil % 56.7 % (47-70); Platelet Count 338 K/mm3 (150-450); RBC Distribution Width CV 17.1 % (11.6-14.6); RBC Distribution Width SD 52.7 fl (35.1-43.9); Red Blood Count 3.93 M/mm3 (4.6-6.2); White Blood Count 7.1 K/mm3 (4.4-11.0)
[2023-08-08 09:06] LABS: ALB/GLOB Ratio 0.7 RATIO (0.9-2.4); AST(SGOT) 15 U/L (15-37); Alanine Aminotransfer ALT/SGPT 23 U/L (16-61); Albumin, Serum 2.8 g/dL (3.2-5.0); Alkaline Phosphatase 106 U/L (45-117); Anion Gap 6 (5-15); BUN 14 mg/dL (7-18); BUN/Creat Ratio 18.1 RATIO (10-20); Calcium,Total 9.1 mg/dL (8.5-10.1); Chloride 107 mmol/L (98-107); Creatinine, Serum 0.78 mg/dL (0.70-1.30); EST Glomerular Filtration Rate 111 mL/min (>60); Est Glom Filt Rate - Afr Amer 134 mL/min (>60); Globulin 4.3 g/dL (2.2-4.2); Glucose 167 mg/dL (74-106); Potassium 3.7 mmol/L (3.5-5.1); Protein, Total 7.1 g/dL (6.4-8.2); Sodium Level 140 mmol/L (136-145)
== END ==
LOC: OLS.SW 05:00
PROVIDERS: PCP Internal Medicine; Visit Provider Family Medicine
DX: I10 Essential (primary) hypertension (principal); D64.9 Anemia, unspecified
CPT/HCPCS: 36415; 80053; 85025

== ENCOUNTER → 2023-08-29 | Outpatient (REF) | payer MEDICAID, SELFPAY ==
[2023-08-29 07:59] LABS: Absolute Lymphocyte Count 2.37 X10^3/uL (0.83-4.51); Absolute Neutrophil Count 3.1 X10^3/uL (2.0-7.7); Basophil# 0.06 X10^3/uL; Basophil% 0.9 % (0-1); Eosinophil# 0.43 X10^3/uL; Eosinophils% 6.6 % (0-5); Hematocrit 36.5 % (40-54); Hemoglobin 10.8 g/dL (13.0-16.5); Lymphocyte # 2.37 X10^3/ul (0.83-4.51); Lymphocyte % 36.3 % (19-41); Mean Corp Hgb Conc 29.6 g/dL (32-36); Mean Corpuscular Hgb 24.8 pg (27.0-32.0); Mean Corpuscular Volume 83.9 fL (80-94); Mean Platelet Vol. 10.1 fl (6.2-12.0); Monocyte# 0.49 X10^3/uL; Monocyte% 7.5 % (0-10); NRBC Flagged by Analyzer 0 % (0-5); Neutrophil # 3.14 X10^3/uL (2.7-7.7); Neutrophil % 48.2 % (47-70); Platelet Count 362 K/mm3 (150-450); Red Blood Count 4.35 M/mm3 (4.6-6.2); White Blood Count 6.5 K/mm3 (4.4-11.0)
[2023-08-29 08:58] LABS: ALB/GLOB Ratio 0.7 RATIO (0.9-2.4); AST(SGOT) 16 U/L (15-37); Alanine Aminotransfer ALT/SGPT 26 U/L (16-61); Alkaline Phosphatase 104 U/L (45-117); Anion Gap 7 (5-15); BUN 24 mg/dL (7-18); BUN/Creat Ratio 28.5 RATIO (10-20); Calcium,Total 9.5 mg/dL (8.5-10.1); Chloride 105 mmol/L (98-107); Creatinine, Serum 0.84 mg/dL (0.70-1.30); EST Glomerular Filtration Rate 101 mL/min (>60); Est Glom Filt Rate - Afr Amer 122 mL/min (>60); Globulin 4.4 g/dL (2.2-4.2); Glucose 159 mg/dL (74-106); Potassium 3.5 mmol/L (3.5-5.1); Protein, Total 7.4 g/dL (6.4-8.2); Sodium Level 140 mmol/L (136-145)
== END | disposition home or self-care (01) ==
LOC: OLS.SW 05:00
PROVIDERS: PCP Internal Medicine; Referring Provider Family Medicine; Visit Provider Family Medicine
DX: D64.9 Anemia, unspecified (principal); R60.9 Edema, unspecified
CPT/HCPCS: 36415; 80053; 85025

== ENCOUNTER → 2023-09-03 | Outpatient (REF) | payer MEDICAID, SELFPAY | END | disposition home or self-care (01) | LOC: OLS.SW 17:00 | PROVIDERS: PCP Internal Medicine; Visit Provider Family Medicine | DX: S31.809A Unspecified open wound of unspecified buttock, initial encounter (principal) | CPT/HCPCS: 87070; 87077; 87186; 87205 ==

== ENCOUNTER → 2023-09-19 | Outpatient (REF) | payer MEDICAID, SELFPAY ==
[2023-09-19 07:50] LABS: Absolute Lymphocyte Count 2.76 X10^3/uL (0.83-4.51); Absolute Neutrophil Count 3.8 X10^3/uL (2.0-7.7); Basophil# 0.06 X10^3/uL; Basophil% 0.8 % (0-1); Eosinophil# 0.41 X10^3/uL; Eosinophils% 5.4 % (0-5); Hematocrit 36.2 % (40-54); Hemoglobin 11.5 g/dL (13.0-16.5); Lymphocyte # 2.76 X10^3/ul (0.83-4.51); Lymphocyte % 36.2 % (19-41); Mean Corp Hgb Conc 31.8 g/dL (32-36); Mean Corpuscular Hgb 26.4 pg (27.0-32.0); Mean Platelet Vol. 9.9 fl (6.2-12.0); Monocyte# 0.51 X10^3/uL; Monocyte% 6.7 % (0-10); NRBC Flagged by Analyzer 0 % (0-5); Neutrophil # 3.83 X10^3/uL (2.7-7.7); Neutrophil % 50.1 % (47-70); Platelet Count 307 K/mm3 (150-450); RBC Distribution Width CV 16.3 % (11.6-14.6); RBC Distribution Width SD 49.8 fl (35.1-43.9); Red Blood Count 4.36 M/mm3 (4.6-6.2); White Blood Count 7.6 K/mm3 (4.4-11.0)
[2023-09-19 08:12] LABS: ALB/GLOB Ratio 0.8 RATIO (0.9-2.4); AST(SGOT) 19 U/L (15-37); Alanine Aminotransfer ALT/SGPT 26 U/L (16-61); Albumin, Serum 3.2 g/dL (3.2-5.0); Alkaline Phosphatase 100 U/L (45-117); Anion Gap 6 (5-15); BUN 22 mg/dL (7-18); BUN/Creat Ratio 26.2 RATIO (10-20); Calcium,Total 9.1 mg/dL (8.5-10.1); Chloride 103 mmol/L (98-107); Creatinine, Serum 0.84 mg/dL (0.70-1.30); EST Glomerular Filtration Rate 101 mL/min (>60); Est Glom Filt Rate - Afr Amer 122 mL/min (>60); Globulin 3.9 g/dL (2.2-4.2); Glucose 145 mg/dL (74-106); Potassium 3.7 mmol/L (3.5-5.1); Protein, Total 7.1 g/dL (6.4-8.2); Sodium Level 136 mmol/L (136-145)
== END | disposition home or self-care (01) ==
LOC: OLS.SW 05:00
PROVIDERS: PCP Internal Medicine; Visit Provider Family Medicine
DX: D64.9 Anemia, unspecified (principal); I10 Essential (primary) hypertension; R60.0 Localized edema
CPT/HCPCS: 36415; 80053; 85025

== ENCOUNTER → 2023-10-10 | Outpatient (REF) | payer MEDICAID, SELFPAY ==
[2023-10-10 07:01] LABS: Absolute Lymphocyte Count 1.83 X10^3/uL (0.83-4.51); Absolute Neutrophil Count 4.3 X10^3/uL (2.0-7.7); Basophil# 0.05 X10^3/uL; Basophil% 0.7 % (0-1); Eosinophil# 0.43 X10^3/uL; Eosinophils% 5.9 % (0-5); Hemoglobin 10.7 g/dL (13.0-16.5); Lymphocyte # 1.83 X10^3/ul (0.83-4.51); Lymphocyte % 25.1 % (19-41); Mean Corp Hgb Conc 30.6 g/dL (32-36); Mean Corpuscular Hgb 25.6 pg (27.0-32.0); Mean Corpuscular Volume 83.7 fL (80-94); Mean Platelet Vol. 9.9 fl (6.2-12.0); Monocyte# 0.65 X10^3/uL; Monocyte% 8.9 % (0-10); NRBC Flagged by Analyzer 0 % (0-5); Platelet Count 325 K/mm3 (150-450); RBC Distribution Width CV 15.4 % (11.6-14.6); RBC Distribution Width SD 46.7 fl (35.1-43.9); Red Blood Count 4.18 M/mm3 (4.6-6.2); White Blood Count 7.3 K/mm3 (4.4-11.0)
[2023-10-10 07:18] LABS: ALB/GLOB Ratio 0.7 RATIO (0.9-2.4); AST(SGOT) 16 U/L (15-37); Alanine Aminotransfer ALT/SGPT 25 U/L (16-61); Albumin, Serum 2.8 g/dL (3.2-5.0); Alkaline Phosphatase 91 U/L (45-117); Anion Gap 4 (5-15); BUN 13 mg/dL (7-18); BUN/Creat Ratio 18.7 RATIO (10-20); Calcium,Total 8.8 mg/dL (8.5-10.1); Chloride 102 mmol/L (98-107); EST Glomerular Filtration Rate 125 mL/min (>60); Est Glom Filt Rate - Afr Amer 151 mL/min (>60); Glucose 195 mg/dL (74-106); Potassium 3.6 mmol/L (3.5-5.1); Protein, Total 6.8 g/dL (6.4-8.2); Sodium Level 136 mmol/L (136-145)
== END | disposition home or self-care (01) ==
LOC: OLS.SW 05:00
PROVIDERS: PCP Internal Medicine; Visit Provider Family Medicine
DX: D64.9 Anemia, unspecified (principal); I10 Essential (primary) hypertension
CPT/HCPCS: 36415; 80053; 85025

== ENCOUNTER → 2023-10-31 | Outpatient (REF) | payer MEDICAID, SELFPAY ==
[2023-10-31 07:08] LABS: Absolute Lymphocyte Count 2.26 X10^3/uL (0.83-4.51); Absolute Neutrophil Count 5.1 X10^3/uL (2.0-7.7); Basophil# 0.05 X10^3/uL; Basophil% 0.6 % (0-1); Eosinophil# 0.41 X10^3/uL; Eosinophils% 4.8 % (0-5); Hematocrit 35.7 % (40-54); Hemoglobin 11.4 g/dL (13.0-16.5); Lymphocyte # 2.26 X10^3/ul (0.83-4.51); Lymphocyte % 26.6 % (19-41); Mean Corp Hgb Conc 31.9 g/dL (32-36); Mean Corpuscular Hgb 26.5 pg (27.0-32.0); Mean Platelet Vol. 9.7 fl (6.2-12.0); Monocyte# 0.68 X10^3/uL; NRBC Flagged by Analyzer 0 % (0-5); Neutrophil # 5.05 X10^3/uL (2.7-7.7); Neutrophil % 59.3 % (47-70); Platelet Count 298 K/mm3 (150-450); RBC Distribution Width CV 15.5 % (11.6-14.6); RBC Distribution Width SD 46.3 fl (35.1-43.9); White Blood Count 8.5 K/mm3 (4.4-11.0)
[2023-10-31 07:48] LABS: ALB/GLOB Ratio 0.7 RATIO (0.9-2.4); AST(SGOT) 14 U/L (15-37); Alanine Aminotransfer ALT/SGPT 27 U/L (16-61); Alkaline Phosphatase 101 U/L (45-117); Anion Gap 5 (5-15); BUN 18 mg/dL (7-18); BUN/Creat Ratio 24.2 RATIO (10-20); Calcium,Total 9.1 mg/dL (8.5-10.1); Chloride 102 mmol/L (98-107); Creatinine, Serum 0.74 mg/dL (0.70-1.30); EST Glomerular Filtration Rate 116 mL/min (>60); Est Glom Filt Rate - Afr Amer 140 mL/min (>60); Globulin 4.1 g/dL (2.2-4.2); Glucose 147 mg/dL (74-106); Potassium 3.4 mmol/L (3.5-5.1); Protein, Total 7.1 g/dL (6.4-8.2); Sodium Level 137 mmol/L (136-145)
== END | disposition home or self-care (01) ==
LOC: OLS.SW 06:04
PROVIDERS: PCP Internal Medicine; Visit Provider Family Medicine
DX: D64.9 Anemia, unspecified (principal); I10 Essential (primary) hypertension; R60.0 Localized edema
CPT/HCPCS: 36415; 80053; 85025

== ENCOUNTER → 2023-11-21 | Outpatient (REF) | payer MEDICAID, SELFPAY ==
[2023-11-21 07:54] LABS: Absolute Lymphocyte Count 2.06 X10^3/uL (0.83-4.51); Absolute Neutrophil Count 2.8 X10^3/uL (2.0-7.7); Basophil# 0.05 X10^3/uL; Basophil% 0.9 % (0-1); Eosinophil# 0.35 X10^3/uL; Eosinophils% 6.1 % (0-5); Lymphocyte # 2.06 X10^3/ul (0.83-4.51); Lymphocyte % 35.6 % (19-41); Mean Corp Hgb Conc 31.4 g/dL (32-36); Mean Corpuscular Hgb 26.7 pg (27.0-32.0); Mean Platelet Vol. 9.8 fl (6.2-12.0); Monocyte# 0.51 X10^3/uL; Monocyte% 8.8 % (0-10); NRBC Flagged by Analyzer 0 % (0-5); Neutrophil # 2.79 X10^3/uL (2.7-7.7); Neutrophil % 48.3 % (47-70); Platelet Count 273 K/mm3 (150-450); RBC Distribution Width CV 15.2 % (11.6-14.6); RBC Distribution Width SD 47.3 fl (35.1-43.9); Red Blood Count 4.12 M/mm3 (4.6-6.2); White Blood Count 5.8 K/mm3 (4.4-11.0)
[2023-11-21 09:48] LABS: ALB/GLOB Ratio 0.8 RATIO (0.9-2.4); AST(SGOT) 18 U/L (15-37); Alanine Aminotransfer ALT/SGPT 23 U/L (16-61); Alkaline Phosphatase 93 U/L (45-117); Anion Gap 6 (5-15); BUN 14 mg/dL (7-18); BUN/Creat Ratio 17.7 RATIO (10-20); Chloride 104 mmol/L (98-107); Creatinine, Serum 0.79 mg/dL (0.70-1.30); EST Glomerular Filtration Rate 108 mL/min (>60); Est Glom Filt Rate - Afr Amer 131 mL/min (>60); Glucose 133 mg/dL (74-106); Potassium 3.5 mmol/L (3.5-5.1); Sodium Level 138 mmol/L (136-145)
== END | disposition home or self-care (01) ==
LOC: OLS.SW 06:40
PROVIDERS: PCP Internal Medicine; Visit Provider Family Medicine
DX: D64.9 Anemia, unspecified (principal); I10 Essential (primary) hypertension
CPT/HCPCS: 36415; 80053; 85025

== ENCOUNTER → 2023-12-12 | Outpatient (REF) | payer MEDICAID, SELFPAY ==
[2023-12-12 07:44] LABS: Absolute Lymphocyte Count 2.17 X10^3/uL (0.83-4.51); Absolute Neutrophil Count 2.8 X10^3/uL (2.0-7.7); Basophil# 0.06 X10^3/uL; Eosinophil# 0.34 X10^3/uL; Eosinophils% 5.8 % (0-5); Hematocrit 39.1 % (40-54); Lymphocyte # 2.17 X10^3/ul (0.83-4.51); Mean Corp Hgb Conc 30.7 g/dL (32-36); Mean Corpuscular Hgb 26.3 pg (27.0-32.0); Mean Corpuscular Volume 85.6 fL (80-94); Mean Platelet Vol. 9.9 fl (6.2-12.0); Monocyte% 8.5 % (0-10); NRBC Flagged by Analyzer 0 % (0-5); Neutrophil # 2.78 X10^3/uL (2.7-7.7); Neutrophil % 47.4 % (47-70); Platelet Count 275 K/mm3 (150-450); RBC Distribution Width SD 46.9 fl (35.1-43.9); Red Blood Count 4.57 M/mm3 (4.6-6.2); White Blood Count 5.9 K/mm3 (4.4-11.0)
[2023-12-12 08:04] LABS: ALB/GLOB Ratio 0.8 RATIO (0.9-2.4); AST(SGOT) 15 U/L (15-37); Alanine Aminotransfer ALT/SGPT 26 U/L (16-61); Albumin, Serum 3.2 g/dL (3.2-5.0); Alkaline Phosphatase 99 U/L (45-117); Anion Gap 4 (5-15); BUN 17 mg/dL (7-18); BUN/Creat Ratio 18.8 RATIO (10-20); Calcium,Total 9.4 mg/dL (8.5-10.1); Chloride 104 mmol/L (98-107); EST Glomerular Filtration Rate 92 mL/min (>60); Est Glom Filt Rate - Afr Amer 112 mL/min (>60); Glucose 103 mg/dL (74-106); Potassium 3.7 mmol/L (3.5-5.1); Protein, Total 7.2 g/dL (6.4-8.2); Sodium Level 137 mmol/L (136-145)
== END | disposition home or self-care (01) ==
LOC: OLS.SW 05:00
PROVIDERS: PCP Internal Medicine; Visit Provider Family Medicine
DX: D64.9 Anemia, unspecified (principal); I10 Essential (primary) hypertension
CPT/HCPCS: 36415; 80053; 85025

== ENCOUNTER → 2024-01-02 | Outpatient (REF) | payer MEDICAID, SELFPAY ==
[2024-01-02 08:04] LABS: Absolute Lymphocyte Count 2.24 X10^3/uL (0.83-4.51); Absolute Neutrophil Count 3.2 X10^3/uL (2.0-7.7); Basophil# 0.06 X10^3/uL; Basophil% 0.9 % (0-1); Eosinophil# 0.34 X10^3/uL; Eosinophils% 5.3 % (0-5); Hematocrit 37.1 % (40-54); Hemoglobin 11.7 g/dL (13.0-16.5); Lymphocyte # 2.24 X10^3/ul (0.83-4.51); Lymphocyte % 35.1 % (19-41); Mean Corp Hgb Conc 31.5 g/dL (32-36); Mean Corpuscular Hgb 26.6 pg (27.0-32.0); Mean Corpuscular Volume 84.3 fL (80-94); Mean Platelet Vol. 9.7 fl (6.2-12.0); Monocyte# 0.54 X10^3/uL; Monocyte% 8.5 % (0-10); NRBC Flagged by Analyzer 0 % (0-5); Neutrophil # 3.16 X10^3/uL (2.7-7.7); Neutrophil % 49.6 % (47-70); Platelet Count 302 K/mm3 (150-450); RBC Distribution Width CV 14.8 % (11.6-14.6); RBC Distribution Width SD 45.5 fl (35.1-43.9); White Blood Count 6.4 K/mm3 (4.4-11.0)
[2024-01-02 08:18] LABS: Vitamin B12 495 pg/mL (211-911); Vitamin D,25 Hydroxy 53.3 ng/mL
[2024-01-02 08:33] LABS: ALB/GLOB Ratio 0.7 RATIO (0.9-2.4); AST(SGOT) 18 U/L (15-37); Alanine Aminotransfer ALT/SGPT 25 U/L (16-61); Albumin, Serum 3.1 g/dL (3.2-5.0); Alkaline Phosphatase 93 U/L (45-117); Anion Gap 5 (5-15); BUN 17 mg/dL (7-18); BUN/Creat Ratio 19.8 RATIO (10-20); Chloride 103 mmol/L (98-107); Creatinine, Serum 0.86 mg/dL (0.70-1.30); EST Glomerular Filtration Rate 98 mL/min (>60); Est Glom Filt Rate - Afr Amer 119 mL/min (>60); Globulin 4.2 g/dL (2.2-4.2); Glucose 105 mg/dL (74-106); Potassium 3.7 mmol/L (3.5-5.1); Protein, Total 7.3 g/dL (6.4-8.2); Sodium Level 138 mmol/L (136-145); Thyroid Stim Hormone (TSH) 2.03 uIU/mL (0.358-3.74)
== END | disposition home or self-care (01) ==
LOC: OLS.SW 04:00
PROVIDERS: PCP Internal Medicine; Referring Provider Family Medicine; Visit Provider Family Medicine
DX: E11.9 Type 2 diabetes mellitus without complications (principal); I10 Essential (primary) hypertension; R60.9 Edema, unspecified
CPT/HCPCS: 36415; 80053; 82306; 82607; 82746; 84443; 85025

== ENCOUNTER → 2024-01-23 | Outpatient (REF) | payer MEDICAID, SELFPAY ==
[2024-01-23 08:36] LABS: Absolute Lymphocyte Count 1.97 X10^3/uL (0.83-4.51); Absolute Neutrophil Count 3.1 X10^3/uL (2.0-7.7); Basophil# 0.04 X10^3/uL; Basophil% 0.7 % (0-1); Eosinophil# 0.31 X10^3/uL; Eosinophils% 5.2 % (0-5); Hematocrit 37.9 % (40-54); Hemoglobin 11.9 g/dL (13.0-16.5); Lymphocyte # 1.97 X10^3/ul (0.83-4.51); Lymphocyte % 33.2 % (19-41); Mean Corp Hgb Conc 31.4 g/dL (32-36); Mean Corpuscular Hgb 26.7 pg (27.0-32.0); Monocyte# 0.52 X10^3/uL; Monocyte% 8.8 % (0-10); NRBC Flagged by Analyzer 0 % (0-5); Neutrophil # 3.07 X10^3/uL (2.7-7.7); Neutrophil % 51.8 % (47-70); Platelet Count 276 K/mm3 (150-450); RBC Distribution Width CV 14.6 % (11.6-14.6); RBC Distribution Width SD 45.5 fl (35.1-43.9); Red Blood Count 4.46 M/mm3 (4.6-6.2); White Blood Count 5.9 K/mm3 (4.4-11.0)
[2024-01-23 09:15] LABS: ALB/GLOB Ratio 0.8 RATIO (0.9-2.4); AST(SGOT) 16 U/L (15-37); Alanine Aminotransfer ALT/SGPT 24 U/L (16-61); Albumin, Serum 3.1 g/dL (3.2-5.0); Alkaline Phosphatase 100 U/L (45-117); Anion Gap 6 (5-15); BUN 16 mg/dL (7-18); BUN/Creat Ratio 21.3 RATIO (10-20); Calcium,Total 9.6 mg/dL (8.5-10.1); Chloride 105 mmol/L (98-107); Creatinine, Serum 0.75 mg/dL (0.70-1.30); EST Glomerular Filtration Rate 114 mL/min (>60); Est Glom Filt Rate - Afr Amer 138 mL/min (>60); Globulin 4.1 g/dL (2.2-4.2); Glucose 114 mg/dL (74-106); Potassium 3.7 mmol/L (3.5-5.1); Protein, Total 7.2 g/dL (6.4-8.2); Sodium Level 139 mmol/L (136-145)
== END | disposition home or self-care (01) ==
LOC: OLS.SW 05:00
PROVIDERS: PCP Internal Medicine; Visit Provider Family Medicine
DX: D64.9 Anemia, unspecified (principal); I10 Essential (primary) hypertension; E11.9 Type 2 diabetes mellitus without complications
CPT/HCPCS: 36415; 80053; 85025

== ENCOUNTER → 2024-02-13 05:00 | Outpatient (REF) | payer MEDICAID, SELFPAY ==
[2024-02-13 09:02] LABS: Absolute Lymphocyte Count 1.87 X10^3/uL (0.83-4.51); Absolute Neutrophil Count 2.6 X10^3/uL (2.0-7.7); Basophil# 0.06 X10^3/uL; Basophil% 1.1 % (0-1); Eosinophil# 0.37 X10^3/uL; Eosinophils% 6.7 % (0-5); Hematocrit 36.6 % (40-54); Hemoglobin 11.3 g/dL (13.0-16.5); Lymphocyte # 1.87 X10^3/ul (0.83-4.51); Lymphocyte % 33.8 % (19-41); Mean Corp Hgb Conc 30.9 g/dL (32-36); Mean Corpuscular Hgb 26.6 pg (27.0-32.0); Mean Corpuscular Volume 86.1 fL (80-94); Monocyte# 0.59 X10^3/uL; Monocyte% 10.7 % (0-10); NRBC Flagged by Analyzer 0 % (0-5); Neutrophil # 2.59 X10^3/uL (2.7-7.7); Neutrophil % 46.8 % (47-70); Platelet Count 285 K/mm3 (150-450); RBC Distribution Width CV 14.6 % (11.6-14.6); RBC Distribution Width SD 45.4 fl (35.1-43.9); Red Blood Count 4.25 M/mm3 (4.6-6.2); White Blood Count 5.5 K/mm3 (4.4-11.0)
[2024-02-13 09:19] LABS: ALB/GLOB Ratio 0.7 RATIO (0.9-2.4); AST(SGOT) 13 U/L (15-37); Alanine Aminotransfer ALT/SGPT 25 U/L (16-61); Albumin, Serum 2.9 g/dL (3.2-5.0); Alkaline Phosphatase 92 U/L (45-117); Anion Gap 5 (5-15); BUN 14 mg/dL (7-18); Calcium,Total 9.2 mg/dL (8.5-10.1); Chloride 103 mmol/L (98-107); Creatinine, Serum 0.82 mg/dL (0.70-1.30); EST Glomerular Filtration Rate 103 mL/min (>60); Est Glom Filt Rate - Afr Amer 124 mL/min (>60); Globulin 4.1 g/dL (2.2-4.2); Glucose 122 mg/dL (74-106); Potassium 3.5 mmol/L (3.5-5.1); Sodium Level 139 mmol/L (136-145)
== END ==
LOC: OLS.SW 05:00
PROVIDERS: PCP Internal Medicine; Visit Provider Family Medicine
DX: D64.9 Anemia, unspecified (principal); I10 Essential (primary) hypertension; E11.9 Type 2 diabetes mellitus without complications
CPT/HCPCS: 36415; 80053; 85025

== ENCOUNTER → 2024-03-05 | Outpatient (REF) | payer MEDICAID, SELFPAY ==
[2024-03-05 08:29] LABS: Absolute Neutrophil Count 4.4 X10^3/uL (2.0-7.7); Basophil# 0.06 X10^3/uL; Basophil% 0.9 % (0-1); Eosinophil# 0.24 X10^3/uL; Eosinophils% 3.5 % (0-5); Hematocrit 34.5 % (40-54); Hemoglobin 10.7 g/dL (13.0-16.5); Lymphocyte % 21.9 % (19-41); Mean Corpuscular Hgb 26.1 pg (27.0-32.0); Mean Corpuscular Volume 84.1 fL (80-94); Mean Platelet Vol. 9.7 fl (6.2-12.0); Monocyte# 0.58 X10^3/uL; Monocyte% 8.5 % (0-10); NRBC Flagged by Analyzer 0 % (0-5); Neutrophil # 4.41 X10^3/uL (2.7-7.7); Neutrophil % 64.5 % (47-70); Platelet Count 308 K/mm3 (150-450); RBC Distribution Width CV 14.3 % (11.6-14.6); RBC Distribution Width SD 43.6 fl (35.1-43.9); White Blood Count 6.8 K/mm3 (4.4-11.0)
[2024-03-05 08:39] LABS: ALB/GLOB Ratio 0.6 RATIO (0.9-2.4); AST(SGOT) 21 U/L (15-37); Alanine Aminotransfer ALT/SGPT 31 U/L (16-61); Albumin, Serum 2.6 g/dL (3.2-5.0); Alkaline Phosphatase 94 U/L (45-117); Anion Gap 10 (5-15); BUN 12 mg/dL (7-18); BUN/Creat Ratio 18.7 RATIO (10-20); Calcium,Total 9.2 mg/dL (8.5-10.1); Chloride 105 mmol/L (98-107); Creatinine, Serum 0.64 mg/dL (0.70-1.30); EST Glomerular Filtration Rate 137 mL/min (>60); Est Glom Filt Rate - Afr Amer 166 mL/min (>60); Globulin 4.4 g/dL (2.2-4.2); Glucose 104 mg/dL (74-106); Potassium 3.5 mmol/L (3.5-5.1); Sodium Level 140 mmol/L (136-145)
== END | disposition home or self-care (01) ==
LOC: OLS.SW 05:00
PROVIDERS: PCP Internal Medicine; Visit Provider Family Medicine
DX: D64.9 Anemia, unspecified (principal); I10 Essential (primary) hypertension; R60.0 Localized edema
CPT/HCPCS: 36415; 80053; 85025

== ENCOUNTER 2024-03-12 13:15 | Outpatient (RCR) | payer MEDICAID, SELFPAY ==
[2024-02-27 13:16] VITALS: BP 153/79; PULSE 98; RESP 14; TEMP 37.1; BMI 51.3
[2024-03-12 13:35] VITALS: BP 132/78; PULSE 96; RESP 16; TEMP 36.6; BMI 51.3
== END 2024-03-17 23:59 | disposition home or self-care (01) ==
LOC: WC 13:15
PROVIDERS: PCP Internal Medicine; Referring Provider Internal Medicine; Visit Provider Nurse Practitioner Family
DX: L89.314 Pressure ulcer of right buttock, stage 4 (principal); L89.154 Pressure ulcer of sacral region, stage 4; G82.20 Paraplegia, unspecified; E66.01 Morbid (severe) obesity due to excess calories; E11.42 Type 2 diabetes mellitus with diabetic polyneuropathy; Z79.4 Long term (current) use of insulin; B37.2 Candidiasis of skin and nail; I10 Essential (primary) hypertension; G47.00 Insomnia, unspecified; N39.42 Incontinence 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; G89.29 Other chronic pain; E78.5 Hyperlipidemia, unspecified; R53.81 Other malaise; Z79.85 Long-term (current) use of injectable non-insulin antidiabetic drugs; Z79.899 Other long term (current) drug therapy
CPT/HCPCS: 11043; 11046; 87070; 87075; 87077; 87186; 87205; 99214; G0463

== ENCOUNTER → 2024-03-26 | Outpatient (REF) | payer MEDICAID, SELFPAY ==
[2024-03-26 08:44] LABS: Absolute Lymphocyte Count 2.08 X10^3/uL (0.83-4.51); Absolute Neutrophil Count 3.3 X10^3/uL (2.0-7.7); Basophil# 0.07 X10^3/uL; Basophil% 1.1 % (0-1); Eosinophil# 0.33 X10^3/uL; Eosinophils% 5.2 % (0-5); Hemoglobin 10.5 g/dL (13.0-16.5); Lymphocyte # 2.08 X10^3/ul (0.83-4.51); Lymphocyte % 32.6 % (19-41); Mean Corpuscular Hgb 25.5 pg (27.0-32.0); Mean Platelet Vol. 9.5 fl (6.2-12.0); Monocyte# 0.55 X10^3/uL; Monocyte% 8.6 % (0-10); NRBC Flagged by Analyzer 0 % (0-5); Neutrophil # 3.29 X10^3/uL (2.7-7.7); Neutrophil % 51.4 % (47-70); Platelet Count 370 K/mm3 (150-450); RBC Distribution Width CV 14.5 % (11.6-14.6); RBC Distribution Width SD 44.6 fl (35.1-43.9); Red Blood Count 4.12 M/mm3 (4.6-6.2); White Blood Count 6.4 K/mm3 (4.4-11.0)
[2024-03-26 09:08] LABS: ALB/GLOB Ratio 0.7 RATIO (0.9-2.4); AST(SGOT) 17 U/L (15-37); Alanine Aminotransfer ALT/SGPT 29 U/L (16-61); Albumin, Serum 2.8 g/dL (3.2-5.0); Alkaline Phosphatase 100 U/L (45-117); Anion Gap 6 (5-15); BUN 14 mg/dL (7-18); BUN/Creat Ratio 17.7 RATIO (10-20); Calcium,Total 9.4 mg/dL (8.5-10.1); Chloride 103 mmol/L (98-107); Creatinine, Serum 0.79 mg/dL (0.70-1.30); EST Glomerular Filtration Rate 108 mL/min (>60); Est Glom Filt Rate - Afr Amer 130 mL/min (>60); Globulin 4.3 g/dL (2.2-4.2); Glucose 121 mg/dL (74-106); Protein, Total 7.1 g/dL (6.4-8.2); Sodium Level 137 mmol/L (136-145)
== END | disposition home or self-care (01) ==
LOC: OLS.SW 05:00
PROVIDERS: PCP Internal Medicine; Visit Provider Family Medicine
DX: D64.9 Anemia, unspecified (principal); I10 Essential (primary) hypertension
CPT/HCPCS: 36415; 80053; 85025

== ENCOUNTER 2024-04-14 08:28 | Outpatient (RCR) | payer MEDICAID, SELFPAY ==
[2024-03-18 00:07] VITALS: BP 132/78; PULSE 96; RESP 16; TEMP 36.6; BMI 51.3
[2024-04-14 08:33] VITALS: BP 182/84; PULSE 105; RESP 18; TEMP 36.8; BMI 51.3
== END 2024-04-17 23:59 | disposition home or self-care (01) ==
LOC: WC 08:28
PROVIDERS: PCP Internal Medicine; Referring Provider Internal Medicine; Visit Provider Nurse Practitioner Family
DX: L89.154 Pressure ulcer of sacral region, stage 4 (principal); L89.314 Pressure ulcer of right buttock, stage 4; G82.20 Paraplegia, unspecified; Z68.43 Body mass index [BMI] 50.0-59.9, adult; E11.42 Type 2 diabetes mellitus with diabetic polyneuropathy; Z79.4 Long term (current) use of insulin; B37.2 Candidiasis of skin and nail; R53.81 Other malaise; E66.9 Obesity, unspecified; Z79.85 Long-term (current) use of injectable non-insulin antidiabetic drugs; Z79.899 Other long term (current) drug therapy
CPT/HCPCS: 11043; 11046

== ENCOUNTER → 2024-04-16 | Outpatient (REF) | payer MEDICAID, SELFPAY ==
[2024-04-16 08:00] LABS: Absolute Lymphocyte Count 2.44 X10^3/uL (0.83-4.51); Absolute Neutrophil Count 3.9 X10^3/uL (2.0-7.7); Basophil# 0.07 X10^3/uL; Basophil% 0.9 % (0-1); Eosinophil# 0.36 X10^3/uL; Eosinophils% 4.8 % (0-5); Hematocrit 35.1 % (40-54); Lymphocyte # 2.44 X10^3/ul (0.83-4.51); Lymphocyte % 32.6 % (19-41); Mean Corp Hgb Conc 31.3 g/dL (32-36); Mean Corpuscular Hgb 25.6 pg (27.0-32.0); Mean Corpuscular Volume 81.6 fL (80-94); Mean Platelet Vol. 10.8 fl (6.2-12.0); Monocyte# 0.65 X10^3/uL; Monocyte% 8.7 % (0-10); NRBC Flagged by Analyzer 0 % (0-5); Neutrophil # 3.91 X10^3/uL (2.7-7.7); Neutrophil % 52.3 % (47-70); POSITIVE COUNT YES; Platelet Count 276 K/mm3 (150-450); RBC Distribution Width CV 15.5 % (11.6-14.6); RBC Distribution Width SD 45.8 fl (35.1-43.9); White Blood Count 7.5 K/mm3 (4.4-11.0)
[2024-04-16 08:19] LABS: ALB/GLOB Ratio 0.6 RATIO (0.9-2.4); AST(SGOT) 16 U/L (15-37); Alanine Aminotransfer ALT/SGPT 24 U/L (16-61); Albumin, Serum 2.6 g/dL (3.2-5.0); Alkaline Phosphatase 91 U/L (45-117); Anion Gap 7 (5-15); BUN 16 mg/dL (7-18); BUN/Creat Ratio 22.1 RATIO (10-20); Calcium,Total 8.4 mg/dL (8.5-10.1); Chloride 103 mmol/L (98-107); Creatinine, Serum 0.72 mg/dL (0.70-1.30); EST Glomerular Filtration Rate 119 mL/min (>60); Est Glom Filt Rate - Afr Amer 144 mL/min (>60); Glucose 119 mg/dL (74-106); Potassium 3.7 mmol/L (3.5-5.1); Protein, Total 6.6 g/dL (6.4-8.2); Sodium Level 136 mmol/L (136-145)
== END | disposition home or self-care (01) ==
LOC: OLS.SW 05:00
PROVIDERS: PCP Internal Medicine; Visit Provider Family Medicine
DX: D64.9 Anemia, unspecified (principal); I10 Essential (primary) hypertension
CPT/HCPCS: 36415; 80053; 85025

== ENCOUNTER 2024-10-13 13:30 | Outpatient (RCR) | payer MEDICAID, SELFPAY ==
[2024-09-24 09:26] VITALS: BP 133/84; PULSE 100; RESP 20; TEMP 38; BMI 47.5
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
--- NOTE | 2024-09-25 10:35 | WC ---
PHOTO 09/24/24 [facility]
--- NOTE | 2024-09-25 10:38 | WC ---
PHOTO 09/24/24 RIGHT ISCHIAL
--- NOTE | 2024-09-25 10:40 | WC ---
PHOTO 09/24/24 LEFT ISCHIAL
--- NOTE | 2024-09-29 14:19 | WC ---
WOUND CX'S REVIEWED PER Landen ELIZALDE REGULATOR INSPECTOR. N.O. TO START AUGMENTIN 875MG PO BID X 14 DAYS. #28 TABS NO REFILLS. CALLED [facility] W/ N.O.'S GIVEN. OFFERED TO FAX CX RESULTS AND NURSE STATED IT WASN'T NECESSARY. DID VERBALLY UPDATE HER ON RESULTS.
[2024-10-07 14:08] VITALS: BP 146/51; PULSE 92; RESP 18; BMI 47.5
--- NOTE | 2024-10-08 09:05 | HP.PCM_ITS ---
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 Hyperlipidemia: CODE(S): E78.5 - Hyperlipidemia, unspecified QUALIFIERS: Hyperlipidemia type: mixed hyperlipidemia Qualified Code(s): E78.2 - Mixed hyperlipidemia (20) History of back surgery: CODE(S): Z98.890 - Other specified postprocedural states PLAN: Plan This is a 54-year-old male paraplegic who presented with 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 These ulcerations have been present for nearly 3 years, and have previously undergone several surgical debridements. Current management includes the use Dakin's [id number]-rs-eph gauze packing changes on a daily basis. These packing changes are to be continued by residential personnel. The patient has been urged to optimize his nutritional intake as well as his diabetic control. Patient indicates his oral intake is suboptimal, because he dislikes the menu at his current nursing facility. He has been encouraged to use nutritional supplements, such as Glucerna. The patient indicates that he underwent blood work 2 weeks ago at his residential facility, [facility], and we are to request a copy of the laboratory results. The patient is currently implementing offloading measures, which are to be continued. The patient has undergone culture of his wound on September 24, 2024, the results of which revealed species of Escherichia coli and Staphylococcus aureus, as well as Bacteroides fragilis. Patient has been started on metronidazole and Augmentin orally, which is to continue for a total of 2 weeks. Given the morphology of the patient's ulcerations, with poorly beveled and irregular margins, as well as undermining, it is felt that there may be a role for surgical unroofing and debridement, as well as possible flap reconstruction. Therefore, a consultation is to be requested with the Plastic Surgery service, Dr. Reji Cuellar, for his recommendations as to management options. It is anticipated that the patient will be evaluated by Dr. Cuellar next week, and will follow-up thereafter for reassessment of his pressure ulcerations. Total time: 60 minutes
[2024-10-13 13:28] VITALS: BP 126/43; PULSE 84; RESP 18; TEMP 36.7; BMI 47.5
--- NOTE | 2024-10-13 14:17 | LES_PTH ---
PATIENT: SERENITY MACHADO LOC: U#:[id number] AGE/SX: 54/M ROOM: RE10/13/[address]: Dr. Lei Alba MD : [id number] BED: DIS: 10/15/2024 SPEC #: [id number] RECD: 10/14/24 09:00 STATUS: JASPREET SHELLEY #: [id number] NAVI: 10/13/24 14:[address]: Lei Alba DEPT: SURGICAL PATHOLOGY RECD BY: John Contreras ENTERED: 10/14/24 09:01 SP TYPE: Lesion OTHR DR: DO Dr. Jimmie Madera MD Tissues: A - Skin of buttock, NOS Procedures: Surgery Specimen Level IV HEADER OPERATION: Tissue excision of left ischial ulcer PRE-OP DIAGNOSIS: Non-healing ulcer pressure ulcer TISSUE SUBMITTED: A- Tissue biopsy of left ischial ulcer MICROSCOPIC DIAGNOSIS A. Skin, left ischium, ulcer, excision: * Epidermal acanthosis with hyperparakeratosis. * No ulceration and no evidence of malignancy is seen in these sections. MICROSCOPIC DESCRIPTION Slides are reviewed. GROSS DESCRIPTION A. Received in formalin in a container labeled with the patient's name, date of , and L ischium biopsy is a 0.9 x 0.7 x 0.4 cm unoriented and irregular soft tissue excision. There is possible white-torres, glistening skin measuring 0.8 x 0.4 cm. No ulcerative lesion is identified. The possible deep margin is inked green, and it is trisected to reveal white-carlos, uniform surfaces. Submitted entirely in A1. [facility] 10-14-2024 CPT:21699
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
--- NOTE | 2024-10-14 08:52 | WC ---
PHOTO 10/13/24 RIGHT ISCHIAL
--- NOTE | 2024-10-14 08:54 | WC ---
PHOTO 10/13/24 LEFT ISCHIAL/BUTTOCK
== END 2024-10-15 23:59 | disposition home or self-care (01) ==
LOC: WC 13:30
PROVIDERS: PCP Internal Medicine; Referring Provider Family Medicine; Visit Provider Surgery
DX: L89.154 Pressure ulcer of sacral region, stage 4 (principal); L89.224 Pressure ulcer of left hip, stage 4; L89.214 Pressure ulcer of right hip, stage 4; L89.153 Pressure ulcer of sacral region, stage 3; L89.223 Pressure ulcer of left hip, stage 3; L89.213 Pressure ulcer of right hip, stage 3; G82.20 Paraplegia, unspecified; Z68.42 Body mass index [BMI] 45.0-49.9, adult; E66.01 Morbid (severe) obesity due to excess calories; E11.42 Type 2 diabetes mellitus with diabetic polyneuropathy; Z79.4 Long term (current) use of insulin; R15.9 Full incontinence of feces; E78.2 Mixed hyperlipidemia; N39.42 Incontinence 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; G47.33 Obstructive sleep apnea (adult) (pediatric); I10 Essential (primary) hypertension; Z79.899 Other long term (current) drug therapy
CPT/HCPCS: 11104; 11043; 11046; 87070; 87075; 87077; 87186; 87205; 88305; 99214; G0463

== ENCOUNTER 2024-11-03 09:30 | Outpatient (RCR) | payer MEDICAID, SELFPAY ==
[2024-10-16 00:44] VITALS: BP 126/43; PULSE 84; RESP 18; TEMP 36.7; BMI 47.5
[2024-10-20 13:33] VITALS: RESP 16; TEMP 36.8; BMI 47.5
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
[2024-11-03 09:22] VITALS: BP 127/74; PULSE 100; RESP 18; TEMP 36.6; BMI 47.5
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
== END 2024-11-15 23:59 | disposition home or self-care (01) ==
LOC: WC 09:30
PROVIDERS: PCP Internal Medicine; Referring Provider Family Medicine; Visit Provider Surgery Plastic and Reconstructive Surgery
DX: L89.153 Pressure ulcer of sacral region, stage 3 (principal); L89.223 Pressure ulcer of left hip, stage 3; L89.213 Pressure ulcer of right hip, stage 3; G82.20 Paraplegia, unspecified; E66.01 Morbid (severe) obesity due to excess calories; E11.42 Type 2 diabetes mellitus with diabetic polyneuropathy; Z79.4 Long term (current) use of insulin; R15.9 Full incontinence of feces; N39.42 Incontinence 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; G47.33 Obstructive sleep apnea (adult) (pediatric); I10 Essential (primary) hypertension; R53.81 Other malaise; E78.2 Mixed hyperlipidemia
CPT/HCPCS: 11043; 11046

== ENCOUNTER 2024-12-01 14:45 | Outpatient (RCR) | payer MEDICAID, SELFPAY ==
[2024-11-16 00:19] VITALS: BP 127/74; PULSE 100; RESP 18; TEMP 36.6; BMI 47.5
[2024-11-17 09:39] VITALS: BP 147/82; PULSE 75; RESP 16; TEMP 36.6; BMI 47.5
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
--- NOTE | 2024-11-18 10:10 | WC ---
PHOTO 11/17/24 SACRAL
--- NOTE | 2024-11-18 10:11 | WC ---
PHOTO 11/17/24 LEFT ISCHIAL
--- NOTE | 2024-11-18 10:12 | WC ---
PHOTO 11/17/24 RIGHT ISCHIAL
[2024-12-01 14:48] VITALS: BP 136/78; PULSE 68; RESP 18; TEMP 36.7; BMI 47.5
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
--- NOTE | 2024-12-02 10:14 | WC ---
PHOTO 12/01/24 SACRAL
--- NOTE | 2024-12-02 10:29 | WC ---
PHOTO 12/01/24 LEFT ISCHIAL
--- NOTE | 2024-12-02 10:30 | WC ---
PHOTO 12/01/24 RIGHT ISCHIAL
== END 2024-12-15 23:59 | disposition home or self-care (01) ==
LOC: WC 14:45
PROVIDERS: PCP Internal Medicine; Referring Provider Family Medicine; Visit Provider Surgery Plastic and Reconstructive Surgery
DX: L89.214 Pressure ulcer of right hip, stage 4 (principal); L89.223 Pressure ulcer of left hip, stage 3; L89.153 Pressure ulcer of sacral region, stage 3; L89.213 Pressure ulcer of right hip, stage 3; G82.20 Paraplegia, unspecified; E66.01 Morbid (severe) obesity due to excess calories; E11.42 Type 2 diabetes mellitus with diabetic polyneuropathy; Z79.4 Long term (current) use of insulin; E78.2 Mixed hyperlipidemia; R53.81 Other malaise; I10 Essential (primary) hypertension; R15.9 Full incontinence of feces; N39.42 Incontinence 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; G47.33 Obstructive sleep apnea (adult) (pediatric)
CPT/HCPCS: 11042; 11043; 11044; 11046; 97802

== ENCOUNTER 2025-01-05 09:45 | Outpatient (RCR) | payer MEDICAID, SELFPAY ==
[2024-12-22 09:45] VITALS: BP 149/77; PULSE 83; RESP 18; TEMP 36.5; BMI 42.9
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
[2025-01-05 10:14] VITALS: RESP 18; BMI 42.9
--- NOTE | 2025-01-06 09:35 | WC ---
PHOTO 01/05/25 LEFT ISCHIAL CLUSTER
--- NOTE | 2025-01-06 09:36 | WC ---
PHOTO 01/05/25 SACRAL
--- NOTE | 2025-01-06 09:37 | WC ---
PHOTO 01/05/25 RIGHT ISCHIAL
--- NOTE | 2025-01-06 09:53 | PN.PCM_ITS ---
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 recent nutrition labs (albeit ordered). Continue VAC on the right ischium. Continue WTD dressings twice daily on the left ischium and sacrum. F/u in 2 weeks. Plan from 05 January 2025 Assessment and Plan The patient is a 54-year-old male with a history of pressure ulcers presenting with exposed bone in the right ischial wound, raising concerns for osteomyelitis. The left ischial wound is subcutaneous and appears to be healing, while the sacral wound is nearly resolved. The use of a wound vacuum is aiding in preventing infection and promoting healing. 1. Right Ischial Pressure Ulcer With Exposed Bone The plan includes consulting with bariatric and general surgeons to optimize the patient's condition for potential pressure ulcer repair, including culture and flap surgery. The use of a wound vacuum will continue to prevent infection and promote healing. I talked about the risks benefits and alternatives to flap reconstruction. 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 At the time of pressure sore reconstruction I would take definitive cultures to treat for osteomyelitis at that time, but in the meantime I think local wound care is most important, as his pressure offloading as well as bariatric surgery consultation/general surgery tertiary center consultation for consideration for an ostomy. Patient unfortunately gets stool within the wound several times per week per his report. I am concerned that this will breakdown any pressures work reconstruction. The referrals have been placed for bariatric surgery/MIS at [facility]. 2. Left Ischial Wound The left ischial wound will continue to be monitored as it appears to be healing and becoming more superficial. 3. Sacral Wound The sacral wound is nearly healed and will continue to be monitored for complete resolution.
== END 2025-01-15 23:59 | disposition home or self-care (01) ==
LOC: WC 09:45
PROVIDERS: Referring Provider Family Medicine; Visit Provider Surgery Plastic and Reconstructive Surgery
DX: L89.214 Pressure ulcer of right hip, stage 4 (principal); L89.153 Pressure ulcer of sacral region, stage 3; L89.223 Pressure ulcer of left hip, stage 3; G82.20 Paraplegia, unspecified; E66.01 Morbid (severe) obesity due to excess calories; Z68.41 Body mass index [BMI] 40.0-44.9, adult; Z79.4 Long term (current) use of insulin; E11.42 Type 2 diabetes mellitus with diabetic polyneuropathy; N39.42 Incontinence 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; E78.2 Mixed hyperlipidemia; I10 Essential (primary) hypertension; G47.33 Obstructive sleep apnea (adult) (pediatric); R53.81 Other malaise; R15.9 Full incontinence of feces
CPT/HCPCS: 11042 ×2; 11043; 11044; 11045; 11046